=== PATIENT | male | born 1955 | race Caucasian/White ===

== ENCOUNTER 2016-10-09 10:05 | Inpatient (IN) | payer MEDICARE ==
[2016-10-09] MEDS ORDERED: THIAMINE 100 MG/ML 2 ML VIAL IM STA (10:47)
[2016-10-09] MEDS ORDERED: LORazepam 2 MG/ML SYRINGE IV PRN (10:47)
--- NOTE | 2016-10-09 10:50 | ED ---
General Adult HPI - General Chief complaint: Alcohol Stated complaint: ETOH Time Seen by Provider: 10/09/16 10:40 Source: EMS, RN notes reviewed Mode of arrival: EMS - History of Present Illness Initial comments: Patient is a 61-year-old male who presents emergency room today by EMS with chief complaint of alcohol intoxication and suicidal. Patient states that he has been drinking today. He admits that he had a fall earlier today. He admits that he did hit the left side of his head. Denies any loss conscious. Denies any headache. States he is alcoholic drinks daily. States she's had thoughts of hurting himself. His example of hanging himself. Patient denies any other physical complaints. Patient denies any recent fever, chills, shortness of breath, chest pain, back pain, abdominal pain, nausea or vomiting, numbness or tingling, dysuria or hematuria, constipation or diarrhea, headaches or visual changes, or any other complaints. - Related Data Home Medications Medication Instructions Recorded Confirmed Atomoxetine HCl [Strattera] 40 mg PO BID 03/24/14 07/20/16 Citalopram Hydrobromide [CeleXA] 40 mg PO HS 03/24/14 07/20/16 Multivitamin [Men's Multi-Vitamin] 1 each PO DAILY 03/24/14 07/20/16 Pregabalin [Lyrica] 100 mg PO TID 03/24/14 07/20/16 Ranitidine HCl [Zantac] 150 mg PO BID 03/24/14 07/20/16 clonazePAM [KlonoPIN] 1 mg PO TID 03/24/14 07/20/16 risperiDONE [RisperDAL] 1 mg PO BID 03/24/14 07/20/16 traZODone HCL [Desyrel] 100 mg PO HS 03/24/14 07/20/16 Previous Rx's Medication Instructions Recorded HYDROcodone/APAP 10-325MG [Hampton 2 each PO Q6H PRN #30 tab 04/29/15 10-325] Nicotine 21Mg/24Hr Patch [Habitrol] 1 patch TRANSDERM DAILY #14 patch 04/29/15 Sulfamethox-Tmp 800-160Mg [Bactrim 1 each PO Q12HR #20 tab 04/29/15 Ds] Trimethobenzamide [Tigan] 300 mg PO TID PRN #15 capsule 07/20/16 Allergies Allergy/AdvReac Type Severity Reaction Status Date / Time Penicillins Allergy Dyspnea, Verified 07/20/16 11:00 HIVES, THROAT SWELLING Review of Systems ROS Statement: Those systems with pertinent positive or pertinent negative responses have been documented in the HPI. ROS Other: All systems not noted in ROS Statement are negative. Past Medical History Past Medical History: GERD/Reflux, Hypertension, Pneumonia Additional Past Medical History / Comment(s): pvd, neuropathy depression , hx of non healing wounds both feet.PAST STOMACH ULCERS, psoriases, sinus problem History of Any Multi-Drug Resistant Organisms: MRSA Date of last positivie culture/infection: 04/25/15 MDRO Source:: Right Third Toe Past Surgical History: Hernia Repair Additional Past Surgical History / Comment(s): Transmetatarsal amputation of the fourth and fifth on the right, multiple I&D 2 nonhealing wounds on the foot , repair of perforated ucler of stomach Past Anesthesia/Blood Transfusion Reactions: Motion Sickness Past Psychological History: ADD/ADHD, Anxiety, Depression Additional Psychological History / Comment(s): Single. His sister is his primary contact. Is an ongoing tobacco smoker. STATES OCC HAS A DRINK-DENIES ANY RECREATIONAL/STREET DRUGS. He denies any medical marijuana, marijuana use. PT IS ON . DISABILTY, LIVES ALONE IN [facility]. There is no experience. There are no extensive travels. There is a cat in the home. Smoking Status: Current every day smoker Past Alcohol Use History: Occasional Additional Past Alcohol Use History / Comment(s): started smoking at age 26 smoke 1 ppd . smoking patch given to pt. Past Drug Use History: None Reported - Past Family History Mother Family Medical History: CVA/TIA, Diabetes Mellitus, Vascular Disorder Additional Family Medical History / Comment(s): emotional problems. age 64 of cva Father Family Medical History: Hypertension Additional Family Medical History / Comment(s): age 38 from mva General Exam - General Exam Comments Initial Comments: General: The patient is awake and alert, in no distress, and does not appear acutely ill. Obvious intoxication Eye: Pupils are equal, round and reactive to light, extra-ocular movements are intact. No nystagmus. There is normal conjunctiva bilaterally. No signs of icterus. Ears, nose, mouth and throat: There are moist mucous membranes and no oral lesions. Neck: The neck is supple, there is no tenderness or JVD. Cardiovascular: There is a regular rate and rhythm. No murmur, rub or gallop is appreciated. Respiratory: Lungs are clear to auscultation, respirations are non-labored, breath sounds are equal. No wheezes, stridor, rales, or rhonchi. Gastrointestinal: Soft, non-distended, non-tender abdomen without masses or organomegaly noted. There is no rebound or guarding present. No CVA tenderness. Bowel sounds are unremarkable. Musculoskeletal: Normal ROM, no tenderness. Strength 5/5. Sensation intact. Pulses equal bilaterally 2+. Neurological: A&O x 3. CN II-XII intact, There are no obvious motor or sensory deficits. Coordination appears grossly intact. Speech is normal. Skin: Mild bruising with mild swelling above left eye. Psychiatric: Cooperative, appropriate mood & affect, normal judgment. Course Vital Signs 10/09/16 10/09/16 10/09/16 10:13 12:07 13:15 Temperature 97.3 F L Pulse Rate 98 88 Respiratory 18 20 Rate Blood Pressure 174/107 181/95 206/102 O2 Sat by Pulse 95 98 Oximetry Medical Decision Making - Medical Decision Making Recent CT reviewed are unremarkable. Patient intoxicated on alcohol level 250. Patient having increased nausea vomiting here the emergency room. Will be admitted for alcohol draw. CIWA protocol will be followed. Case discussed with attending physician Dr. Butts discuss case with admitting physician, she also recommends addition to CIWA scale to give Valium 7.5 mg by mouth every 6 hours and hold for respirations less than 12. Also, Lopressor 50 mg every 8hr and hold for blood pressure less than 100/50 - Lab Data Lab Results 10/09/16 Range/Units 12:37 Urine Opiates Screen Detected H (NotDetected) Ur Oxycodone Screen Not Detected (NotDetected) Urine Methadone Screen Not Detected (NotDetected) Ur Propoxyphene Screen Not Detected (NotDetected) Ur Barbiturates Screen Not Detected (NotDetected) U Tricyclic Antidepress Not Detected (NotDetected) Ur Phencyclidine Scrn Not Detected (NotDetected) Ur Amphetamines Screen Not Detected (NotDetected) U Methamphetamines Scrn Not Detected (NotDetected) U Benzodiazepines Scrn Not Detected (NotDetected) Urine Cocaine Screen Not Detected (NotDetected) U Marijuana (THC) Screen Not Detected (NotDetected) Disposition Clinical Impression: Alcohol withdrawal Disposition: ADMITTED IP TO THIS HOSP Condition: Stable Referrals: Remington Mustafa MD [Primary Care Provider] - 1-2 days Time of Disposition: 13:35
--- NOTE | 2016-10-09 11:18 | CT ---
EXAMINATION TYPE: CT brain wo con DATE OF EXAM: 10/09/2016 11:05 AM COMPARISON: NONE HISTORY: fall CT DLP: 1081.6 mGycm Automated exposure control for dose reduction was used. FINDINGS: There is no acute intracranial hemorrhage, mass effect, or midline shift identified. The ventricles and sulci are within normal limits in size. Soft tissue swelling noted compatible with patient's hist ory of contusion at the left orbit soft tissues anteriorly. The globes are intact and the visualized sinuses are remarkable for lobular soft tissue in the maxillary sinuses likely mucus retention cysts or polyps. There is cortical atrophy, periventricular white matter shows low attenuation. IMPRESSION: No acute intracranial hemorrhage, mass effect, or midline shift is seen. Age-related changes of atrop hy and probable chronic small vessel ischemia. Soft tissue injury
[2016-10-09] MEDS ORDERED: ONDANSETRON 4 MG/2 ML VIAL IVP STA ×2 (11:48→13:22)
[2016-10-09] MEDS ORDERED: LORazepam 1 MG TAB PO STA (12:12)
[2016-10-09] MEDS: LORazepam 2 MG/ML SYRINGE IV PRN ×2 (13:29→20:47)
[2016-10-09] MEDS ORDERED: NALOXONE 0.4 MG/ML 1 ML VIAL IV PRN (13:35)
[2016-10-09] MEDS ORDERED: METOPROLOL TARTRATE 50 MG TAB PO STA (13:40)
[2016-10-09 13:42] LABS: ALT 54 U/L (21-72); AST 133 U/L (17-59); Alkaline Phosphatase 86 U/L (38-126); Anion Gap 21 mmol/L; Blood Urea Nitrogen 6 mg/dL (9-20); Calcium 8.7 mg/dL (8.4-10.2); Carbon Dioxide 23 mmol/L (22-30); Chloride 102 mmol/L (98-107); Glucose 130 mg/dL (74-99); Non-African American GFR(MDRD) >60 (>60 ml/min/1.73 sqM); Potassium 4.1 mmol/L (3.5-5.1); Sodium 146 mmol/L (137-145); Total Protein 8.3 g/dL (6.3-8.2)
[2016-10-09 13:47] LABS: Basophils % (A) 0 %; CH 41.4; CHCM 36.1; Eosinophils % (A) 0 %; HCT 46.2 % (39.0-53.0); HGB 15.8 gm/dL (13.0-17.5); Luc # (Auto) 0.04; Luc % (Auto) 1; Lymphocytes # (A) 0.8 k/uL (1.0-4.8); Lymphocytes % (A) 13 %; MCH 39.3 pg (25.0-35.0); MCHC 34.3 g/dL (31.0-37.0); MCV 114.9 fL (80.0-100.0); Macrocytosis Marked; Mean Platelet Volume 7.8; Monocytes # (A) 0.3 k/uL (0-1.0); Monocytes % (A) 5 %; Neutrophils # (A) 4.8 k/uL (1.3-7.7); Neutrophils % (A) 81 %; RBC 4.02 m/uL (4.30-5.90); RDW 13.4 % (11.5-15.5); WBC (Perox) 6.21
[2016-10-09] MEDS: DIAZEPAM 5 MG TAB PO SCH ×2 (14:30→21:08)
[2016-10-09] MEDS ORDERED: LABETALOL SYRINGE 5 MG/ML IVP STA ×2 (14:42→16:15)
[2016-10-09] MEDS ORDERED: LORazepam 2 MG/ML SYRINGE IV STA ×3 (14:42→17:16)
[2016-10-09] MEDS ORDERED: cloNIDine HCL 0.2 MG TAB PO STA (17:16)
[2016-10-09] MEDS: METOPROLOL TARTRATE 50 MG TAB PO SCH ×2 (17:20→21:08)
[2016-10-09] MEDS ORDERED: cloNIDine HCL 0.2 MG TAB PO PRN (19:33)
[2016-10-09] MEDS: THIAMINE 100 MG TAB PO SCH (19:48)
[2016-10-09] MEDS: HYDROcodone/APAP 10-325MG 1 EACH TAB PO PRN (22:18)
[2016-10-09] MEDS: clonazePAM 1 MG TAB PO SCH (22:18)
[2016-10-09] MEDS: traZODone HCL 100 MG TAB PO SCH (22:18)
[2016-10-09] MEDS: PREGABALIN 100 MG CAP PO SCH (22:18)
[2016-10-09] MEDS: CITALOPRAM HYDROBROMIDE 20 MG TAB PO SCH (22:18)
[2016-10-09] MEDS: risperiDONE 2 MG TAB PO SCH (22:19)
[2016-10-10] MEDS: DIAZEPAM 5 MG TAB PO SCH ×4 (01:54→21:02)
[2016-10-10] MEDS: LORazepam 2 MG/ML SYRINGE IV PRN ×2 (01:54→21:03)
[2016-10-10] MEDS: HYDROcodone/APAP 10-325MG 1 EACH TAB PO PRN ×3 (06:09→21:02)
[2016-10-10] MEDS: FAMOTIDINE 20 MG TAB PO SCH ×2 (08:56→21:07)
[2016-10-10] MEDS: METOPROLOL TARTRATE 50 MG TAB PO SCH ×3 (08:57→23:14)
[2016-10-10] MEDS: THIAMINE 100 MG TAB PO SCH ×2 (08:57→16:37)
[2016-10-10] MEDS: clonazePAM 1 MG TAB PO SCH ×3 (08:57→23:18)
[2016-10-10] MEDS: PREGABALIN 100 MG CAP PO SCH ×3 (08:57→23:14)
[2016-10-10] MEDS: risperiDONE 1 MG TAB PO SCH (08:57)
[2016-10-10 12:56] VITALS: BMI 29.4
[2016-10-10] MEDS: ENOXAPARIN 40 MG/0.4 ML SYRINGE SQ SCH (13:59)
--- NOTE | 2016-10-10 14:11 | HP ---
DATE OF ADMISSION: 10/09/2016 PRESENTING COMPLAINT: Alcohol intoxicated. HISTORY OF PRESENTING COMPLAINT: This is a 61-year-old patient whose chronic stable medical conditions include GERD, hyperlipidemia, hypertension, peripheral arterial disease, peripheral neuropathy, stomach ulcer in the past. The patient is smoking and continued to drink about a fifth of vodka. Patient had been clean for some time, but started drinking back about 9 months ago. Patient also was depressed, suicidal when he presented. Patient's friend is present here. Patient does live at [facility]. Patient also withdrawing from alcohol, was put on Valium and beta steven. The patient also stated he bumped and fell hitting the left forehead. The patient is somewhat tired appearing, of course he has been getting Valium. REVIEW OF SYSTEMS: CONSTITUTIONAL: Tired. HEENT: Bumped the left side of the forehead. RESPIRATORY: Occasional wheezing. CARDIOVASCULAR: None. GASTROINTESTINAL: Occasional diarrhea. GENITOURINARY: None. MUSCULOSKELETAL: Some bruising of the left forehead area. HEMATOLOGICAL: None. LYMPHATICS: None. PSYCHIATRY: Depressed, suicidal on presentation. NEUROLOGICAL: Suicidal when he presented. Past medical history of GERD, hyperlipidemia, hypertension, psoriasis, stomach ulcers, MRSA of the right toes. PAST SURGICAL HISTORY: Hernia repair, transmetatarsal amputation of the fourth and fifth toe on the right, multiple I&D on nonhealing wounds of the foot, repair of perforated ulcer of the stomach. Psych history of ADHD, anxiety, depression. SOCIAL HISTORY: The patient's sister is primary contact. Alcoholic as above. Patient is on disability, lives alone in an apartment. Patient has been smoking a pack a day for over the last 20 years and drinking a fifth a vodka at least for the last 9 months. Family history of stroke, diabetes, vascular disorder. HOME MEDICATIONS: 1. Desyrel 100 mg q.h.s. 2. Risperdal 2 mg q.h.s. 3. Risperdal 1 mg in the morning. 4. Klonopin 1 mg t.i.d. 5. Zantac 150 mg p.o. b.i.d. 6. Lyrica 100 mg p.o. t.i.d. 7. Purlear 1 to 2 tablets q.6 p.r.n. 8. Celexa 40 mg q.h.s. ASSESSMENT: 1. Major depression, recurrent, with no psychosis with suicidal ideation, present at admission. 2. Acute alcohol intoxication presentation. 3. Chronic alcoholism, dependence. 4. Early alcohol withdrawal. 5. Alcohol withdrawal syndrome. 6. Gastroesophageal reflux disease. 7. Hyperlipidemia. 8. Essential hypertension. 9. Peripheral arterial disease. 10. Peripheral neuropathy, probably from alcoholism. PLAN: Patient will be put on Lovenox. Home medications are resumed. Psychiatry was consulted. Patient has got a sitter at the bedside. I have him on Valium and Lopressor for the alcohol withdrawal. Will keep a close eye. Will follow.
[2016-10-10] MEDS: ONDANSETRON 4 MG/2 ML VIAL IVP PRN (16:37)
--- NOTE | 2016-10-10 18:20 | CONS ---
DATE OF CONSULTATION: REASON FOR CONSULTATION: To assess suicidal risk. I reviewed the medical record and attempted to interview the patient. Patient has extensive history of alcohol abuse and mental illness. According to the record from the emergency room, patient presents to the emergency room by EMS with chief complaint of alcohol intoxication, as his blood alcohol level was 250 and he was verbalizing suicidal ideation. Patient states that he has been drinking on a daily basis up to a fifth of hard liquor a day and he had a fall in his apartment and he did hit the left side of his head. He denied any loss of consciousness or headache. CT of the brain was negative for intracranial hemorrhage. Patient told the ER physician that he was thinking about hurting himself, and he gave an example of hanging himself. Today when I saw the patient he was still drowsy, having severe hand tremors; however, he said, "I'm not suicidal. I just get very depressed when I don't know how to stop drinking." Patient stated that he has been on Social Security Disability "for dual diagnosis. I have drinking problem and schizoaffective disorder." PAST PSYCHIATRIC HISTORY: He denied any inpatient treatment for mental illness; however, he stated that he has been in 5 or 6 different inpatient substance abuse programs. Patient stated that he was treated at [facility] in [facility], but according to him, "they did terminate my care last year because I was drinking every day." According to the patient, his primary care physician has continued his psychotropic medication. PAST DIAGNOSES: He said he was diagnosed with attention deficit and hyperactivity, anxiety, depression, bipolar and schizoaffective disorder. SUBSTANCE ABUSE HISTORY: He started drinking alcohol at age 16, and despite being in 4 or 5 different inpatient rehab programs, the longest period of sobriety was 2 years; this was 5 years ago. Patient does not go to any AA meetings or any recovery group. Smoking: He has been smoking at least one pack a day for more than 40 years. ALLERGIES: PENICILLIN. His home medication includes: 1. Strattera 40 mg twice a day. 2. Citalopram 40 mg at bedtime. 3. Lyrica 100 mg 3 times a day. 4. Zantac 150 twice a day. 5. Klonopin 1 mg 3 times a day. 6. Risperdal 1 mg twice a day. 7. Trazodone 100 mg at bedtime. PAST MEDICAL HISTORY: 1. History of hypertension. 2. Gastroesophageal reflex disease. 3. Neuropathy. 4. Psoriasis. 5. Peripheral vascular disease. PAST SURGICAL HISTORY: 1. Amputation of the fourth and the fifth toes on the right foot. 2. He has had multiple non-healing wounds in the past on the foot. BRIEF SOCIAL HISTORY: Patient has 4 brothers and 1 sister. He never . He does not have any children. He is on Social Security Disability and lives alone in the apartment. He has a cat at home in his apartment. He stated that both parents were alcoholic. MENTAL STATUS EXAMINATION: Despite patient being alert and responsive, he was unable to provide complete answers for the mini mental status exam or memory and concentration test. He did admit that he has a drinking problem and usually experiences auditory and visual hallucinations during withdrawal. But he denied any current suicidal or homicidal ideation. He stated that he never had any history of suicide in the past. Even when I was talking to him, he started asking me to fill in the menu for his lunch. He is oriented to person and place, as he was able to identify the name of the hospital. He is very disheveled, unkempt, with body odor. His thinking is very concrete. His insight regarding his drinking is questionable, but in general his insight and judgment are fair. ASSESSMENT: 1. Alcohol abuse disorder and dependence and alcohol withdrawal. 2. History of schizoaffective disorder versus bipolar disorder. PLAN: From a psychiatric perspective, patient denied any suicidal or homicidal ideation. Patient does not need to be hospitalized in a psychiatric facility; however, he does need [facility]. Will continue to follow up as long as the patient is in the hospital. Thank you for this consultation.
[2016-10-10] MEDS: traZODone HCL 100 MG TAB PO SCH (21:07)
[2016-10-10] MEDS: CITALOPRAM HYDROBROMIDE 20 MG TAB PO SCH (21:07)
[2016-10-10] MEDS: risperiDONE 2 MG TAB PO SCH (21:07)
[2016-10-11] MEDS: HYDROcodone/APAP 10-325MG 1 EACH TAB PO PRN (03:46)
[2016-10-11] MEDS: DIAZEPAM 5 MG TAB PO SCH ×3 (03:46→11:54)
[2016-10-11] MEDS: LORazepam 2 MG/ML SYRINGE IV PRN ×2 (06:57→16:42)
[2016-10-11] MEDS: PREGABALIN 100 MG CAP PO SCH ×2 (08:43→15:23)
[2016-10-11] MEDS: METOPROLOL TARTRATE 50 MG TAB PO SCH ×2 (08:43→15:23)
[2016-10-11] MEDS: ENOXAPARIN 40 MG/0.4 ML SYRINGE SQ SCH (08:43)
[2016-10-11] MEDS: FAMOTIDINE 20 MG TAB PO SCH (08:44)
[2016-10-11] MEDS: risperiDONE 1 MG TAB PO SCH (08:44)
[2016-10-11] MEDS: clonazePAM 1 MG TAB PO SCH ×2 (08:44→15:23)
[2016-10-11] MEDS: THIAMINE 100 MG TAB PO SCH ×2 (11:53→15:23)
[2016-10-11] MEDS ORDERED: DIAZEPAM 5 MG TAB PO SCH (22:00)
--- NOTE | 2016-10-11 22:55 | HP ---
ADDENDUM: DATE OF ADMISSION: 10/09/2016 PHYSICAL EXAMINATION: Temperature 97.6, pulse 56, respirations 20, blood pressure 152/97, pulse ox 99% on room air. GENERAL APPEARANCE: Lying in bed, rather disheveled, tired -appearing. EYES: Pupils equal. Conjunctivae normal. NECK: JVD unable to assess. Mass not palpable. RESPIRATORY: Effort normal. LUNGS: Diminished breath sounds. CARDIOVASCULAR: First and second sounds normal. No edema. ABDOMEN: Soft, nontender. Liver and spleen not palpable. PSYCHIATRY: Anxious, tired-appearing. NEUROLOGICAL: Slightly shaky. EXTREMITIES: Missing last 2 toes of the right foot. DERMATOLOGICAL: Dry skin.
[2016-10-11 23:50] VITALS: RESP 18
[2016-10-12] MEDS: LORazepam 2 MG/ML SYRINGE IV PRN (03:15)
[2016-10-12] MEDS: HYDROcodone/APAP 10-325MG 1 EACH TAB PO PRN (03:16)
[2016-10-12] MEDS: FAMOTIDINE 20 MG TAB PO SCH ×3 (03:17→08:11)
[2016-10-12] MEDS: CITALOPRAM HYDROBROMIDE 20 MG TAB PO SCH (03:17)
[2016-10-12] MEDS: traZODone HCL 100 MG TAB PO SCH (03:18)
[2016-10-12] MEDS: risperiDONE 2 MG TAB PO SCH (03:18)
[2016-10-12] MEDS: ONDANSETRON 4 MG/2 ML VIAL IVP PRN (03:22)
[2016-10-12] MEDS: METOPROLOL TARTRATE 50 MG TAB PO SCH ×2 (03:23→08:05)
[2016-10-12] MEDS: PREGABALIN 100 MG CAP PO SCH ×3 (03:24→08:10)
[2016-10-12] MEDS: clonazePAM 1 MG TAB PO SCH ×2 (03:31→08:06)
[2016-10-12] MEDS: risperiDONE 1 MG TAB PO SCH (08:05)
[2016-10-12] MEDS: ENOXAPARIN 40 MG/0.4 ML SYRINGE SQ SCH (08:05)
[2016-10-12 08:12] VITALS: TEMP 97.4
--- NOTE | 2016-10-12 09:13 | PN ---
DATE OF SERVICE: 10/11/2016 PRESENTING COMPLAINT: Alcohol intoxication and withdrawals. INTERVAL HISTORY: This patient was seen by me earlier today with alcohol ( ) intoxication. ( ) earlier today. Patient's friend is at the bedside and also has a sitter. Seen by psychiatry Dr. Arias, not felt a candidate for inpatient psych. The patient did tolerate ( ) now sleepy. Review of systems could not be done as the patient is rather sleepy. Current medications are reviewed including Valium 7.5 q6h. On examination, temperature 97.8, pulse 55, respirations 16, blood pressure 142/90, pulse ox 98% on room air. GENERAL APPEARANCE: Lying in bed, somber, arousable. EYES: Pupils equal, conjunctivae normal. NECK: JVD not raised. Mass not palpable. RESPIRATORY:
--- NOTE | 2016-10-12 09:24 | PN ---
DATE OF SERVICE: 10/11/2016 Presenting complaint: Tired. INTERVAL HISTORY: This patient admitted with acute alcohol intoxication, alcohol withdrawals, seen by Dr. Arias from psychiatry, does not feel a candidate to be admitted to inpatient psych. Patient's friend is at bedside. Also has a sitter. The patient did eat breakfast today and then dozed off again. Review of systems could not be done as the patient is rather sleepy. Medications include Valium. On examination temperature 97.8, pulse 55, respiratory rate 16, blood pressure 142/90. Pulse ox 98% on room air. General appearance: tired appearing, arousable. EYES: Pupils equal. Conjunctivae not raised. Mass not palpable. RESPIRATORY: Effort normal. Lungs slightly decreased breath sounds. CARDIOVASCULAR: First and second sounds normal. No edema. ABDOMEN: Soft, nontender. Liver and spleen not palpable. PSYCHIATRY: Lethargic but arousable. INVESTIGATIONS: No blood work from today. AST 133. ASSESSMENT: 1. Acute alcohol intoxication on presentation. 2. Chronic alcohol dependence. 3. Early alcohol withdrawal, improving. 4. Metabolic encephalopathy probably from valium. 5. Alcohol withdrawal syndrome, improving. 6. Gastroesophageal reflux disease. 7. Hyperlipidemia. 8. Essential hypertension. 9. Peripheral artery disease. 10. Peripheral neuropathy, probably from alcoholism. 11. Possible bipolar disorder as per psychiatry. PLAN: At this point, we will stop patient's Valium. Continue current medication and treatment plan. As patient is not a suicide risk, sitter can be discontinued once the patient is out of the effect of Valium.
[2016-10-12] MEDS: THIAMINE 100 MG TAB PO SCH (11:09)
[2016-10-12 11:17] VITALS: BP 116/67; PULSE 65
--- NOTE | 2016-10-13 19:26 | DS ---
DATE OF ADMISSION: 10/09/2016 DATE OF DISCHARGE: 10/12/2016 FINAL DIAGNOSES: 1. Acute alcohol intoxication on presentation. 2. Chronic alcohol dependence. 3. Early alcohol withdrawal, present on admission. 4. Metabolic encephalopathy, multifactorial. 5. Alcohol withdrawal syndrome on presentation. 6. Gastroesophageal reflux disease. 7. Hyperlipidemia. 8. Essential hypertension. 9. Peripheral artery disease. 10. Peripheral neuropathy, probably from alcoholism. 11. Possible bipolar disorder as per psychiatry. HOSPITAL COURSE: This patient has been drinking quite a bit for quite some time, presented with intoxification, and had alcohol withdrawal. Initially there was some statement about suicidal. Seen by Dr. Rincon from psychiatry who cleared the patient. The patient to remain on current medication and withdrawals have improved. On the day of discharge, patient up and about in the hallway, unassisted answering questions appropriately. Was tired. The patient again counseled the patient against smoking and alcohol. On examination: LUNGS: Decreased breath sounds. CARDIOVASCULAR: First and seconds normal. PSYCH: Alert and oriented times three. DISCHARGE MEDICATIONS: 1. Celexa 40 mg p.o. q.h.s. 2. Lytic 100 mg p.o. t.i.d. 3. Zantac 150 mg p.o. b.i.d. 4. Klonopin 1 mg p.o. t.i.d., 5. Risperdal 1 mg p.o. daily. 6. Desyrel 100 mg p.o. q.h.s. 7. Manter 10, 1 to 2 tablets q.6 p.r.n. 8. Risperdal 2 mg p.o. q.h.s. 9. Lopressor 50 mg p.o. t.i.d. Follow up with Dr. Mustafa in 2 days. Follow up with [facility] in one week. Also the patient is to follow up with Dr. Corral in 10 days regarding alcoholic hepatitis.
== END 2016-10-12 14:47 | disposition home or self-care (01) | DRG 896 ==
LOC: EC 10:05 → 4MS4W 13:44 → 6SEL 19:43
PROVIDERS: ADMIT Hospitalist; ATTEND Hospitalist
DX: F10.239 Alcohol dependence with withdrawal, unspecified (principal); G93.41 Metabolic encephalopathy; R45.851 Suicidal ideations; G62.9 Polyneuropathy, unspecified; F10.229 Alcohol dependence with intoxication, unspecified; F25.9 Schizoaffective disorder, unspecified; E78.5 Hyperlipidemia, unspecified; F17.210 Nicotine dependence, cigarettes, uncomplicated; F41.9 Anxiety disorder, unspecified; F90.9 Attention-deficit hyperactivity disorder, unspecified type; I10 Essential (primary) hypertension; I73.9 Peripheral vascular disease, unspecified; K21.9 Gastro-esophageal reflux disease without esophagitis; F31.9 Bipolar disorder, unspecified; L40.9 Psoriasis, unspecified; T42.4X5A Adverse effect of benzodiazepines, initial encounter; Z79.82 Long term (current) use of aspirin; Z88.0 Allergy status to penicillin; Z86.14 Personal history of Methicillin resistant Staphylococcus aureus infection; Z82.49 Family history of ischemic heart disease and other diseases of the circulatory system; W19.XXXA Unspecified fall, initial encounter; Y90.8 Blood alcohol level of 240 mg/100 ml or more; Y92.239 Unspecified place in hospital as the place of occurrence of the external cause
CPT/HCPCS: 36415; 70450; 80053; 80306; 82075; 85025; 96372; 96374; 96375; 96376; 99285

== ENCOUNTER 2017-03-26 12:47 | Observation (INO) | payer MEDICARE ==
[2017-03-26] MEDS ORDERED: ONDANSETRON 4 MG/2 ML VIAL IVP STA (13:47)
[2017-03-26] MEDS ORDERED: HYDROmorphone 1 MG/ML 1 ML SYRINGE IVP STA (13:47)
[2017-03-26] MEDS ORDERED: SODIUM CHLORIDE 0.9% 1,000 ML IV STA (13:47)
--- NOTE | 2017-03-26 13:50 | ED ---
General Adult HPI - General Source: patient, RN notes reviewed Mode of arrival: ambulatory Limitations: no limitations <Guillermo Davies - Last Filed: 03/26/17 15:43> <Charles Sosa - Last Filed: 03/26/17 16:20> - General Chief complaint: Skin/Abscess/Foreign Body Stated complaint: abrasion left great toe Time Seen by Provider: 03/26/17 13:39 - History of Present Illness Initial comments: Patient 61-year-old male who presents emergency room today with chief complaint of an infection to the left great toe. He does admit to a history of MRSA. He states this started about 4 weeks ago. He states he has no excuse his for reason why he did not follow up sooner. Patient does admit to a history of MRSA and surgery to the right foot and amputation of 3 toes. Patient does admit that the area is painful. He denies any other complaints or symptoms. ( Guillermo Davies) - Related Data Home Medications Medication Instructions Recorded Confirmed Citalopram Hydrobromide [CeleXA] 40 mg PO HS 03/24/14 03/26/17 Ranitidine HCl [Zantac] 150 mg PO BID 03/24/14 03/26/17 clonazePAM [KlonoPIN] 1 mg PO TID 03/24/14 03/26/17 traZODone HCL [Desyrel] 100 mg PO HS 03/24/14 03/26/17 HYDROcodone/APAP 10-325MG [[place] 1 - 2 tab PO Q6H PRN 10/09/16 03/26/17 10-325] Gabapentin [Neurontin] 100 mg PO TID 03/26/17 03/26/17 Tamsulosin HCl [Flomax] 0.4 mg PO HS 03/26/17 03/26/17 Previous Rx's Medication Instructions Recorded Metoprolol Tartrate [Lopressor] 50 mg PO TID #90 tab 10/12/16 Allergies Allergy/AdvReac Type Severity Reaction Status Date / Time Penicillins Allergy Dyspnea, Verified 03/26/17 14:06 HIVES, THROAT SWELLING Review of Systems ROS Other: All systems not noted in ROS Statement are negative. <Guillermo Davies - Last Filed: 03/26/17 15:43> ROS Other: All systems not noted in ROS Statement are negative. <Charles Sosa - Last Filed: 03/26/17 16:20> ROS Statement: Those systems with pertinent positive or pertinent negative responses have been documented in the HPI. Past Medical History Past Medical History: GERD/Reflux, Hyperlipidemia, Hypertension, Pneumonia, Skin Disorder, Vascular Disorder Additional Past Medical History / Comment(s): pvd, bilateral legs and feet neuropathy, hx of non healing wounds both feet, 2007 osteomylitis L foot, PAST STOMACH ULCERS, psoriases, sinus problem History of Any Multi-Drug Resistant Organisms: MRSA Date of last positivie culture/infection: 04/25/15 MDRO Source:: Right Third Toe Past Surgical History: Hernia Repair Additional Past Surgical History / Comment(s): Transmetatarsal amputation of the fourth and fifth on the right, multiple I&D 2 nonhealing wounds on the foot , repair of perforated ucler of stomach, EGD/colonoscopy, PICC lines in and out. Past Anesthesia/Blood Transfusion Reactions: Motion Sickness Past Psychological History: ADD/ADHD, Anxiety, Depression Smoking Status: Current every day smoker - Past Family History Mother Family Medical History: CVA/TIA, Diabetes Mellitus, Vascular Disorder Additional Family Medical History / Comment(s): emotional problems. age 64 of cva Father Family Medical History: Hypertension Additional Family Medical History / Comment(s): age 38 from mva <Guillermo Davies - Last Filed: 03/26/17 15:43> General Exam Limitations: no limitations <Guillermo Davies - Last Filed: 03/26/17 15:43> <Charles Sosa - Last Filed: 03/26/17 16:20> - General Exam Comments Initial Comments: General: The patient is awake and alert, in no distress, and does not appear acutely ill. Eye: Pupils are equal, round and reactive to light, extra-ocular movements are intact. No nystagmus. There is normal conjunctiva bilaterally. No signs of icterus. Ears, nose, mouth and throat: There are moist mucous membranes and no oral lesions. Neck: The neck is supple, there is no tenderness or JVD. Cardiovascular: There is a regular rate and rhythm. No murmur, rub or gallop is appreciated. Respiratory: Lungs are clear to auscultation, respirations are non-labored, breath sounds are equal. No wheezes, stridor, rales, or rhonchi. Musculoskeletal: Normal ROM, no tenderness. Strength 5/5. Sensation intact. Pulses equal bilaterally 2+. Neurological: A&O x 3. CN II-XII intact, There are no obvious motor or sensory deficits. Coordination appears grossly intact. Speech is normal. Skin: Patient does have ulceration to the bottom of the left great toe. There is increased redness erythema and inflammation and swelling to this area. Psychiatric: Cooperative, appropriate mood & affect, normal judgment. (Guillermo Davies) Medical Decision Making - Lab Data Result diagrams: 03/26/17 14:15 03/26/17 14:15 <Guillermo Davies - Last Filed: 03/26/17 15:43> - Lab Data Result diagrams: 03/26/17 14:15 03/26/17 14:15 <Charles Sosa - Last Filed: 03/26/17 16:20> - Medical Decision Making Patient's x-ray reviewed shows no evidence of osteomyelitis. Patient's last been reviewed here in the emergency room. Patient's sed rate 40. Patient's remaining labs been reviewed and compared to previous shows similar. Consent on antibiotics in the emergency room.. (Guillermo Davies) The patient was seen and examined. All diagnostics were reviewed. It is felt as though he would require admission to the hospital. He likely has a necrotic right large toe and may need amputation. The case is discussed with internal medicine and he is admitted with the vascular surgery consult. The case is discussed with the PA and I agree with the findings as documented. (Charles Sosa) - Lab Data Lab Results 03/26/17 03/26/17 Range/Units 14:15 14:15 WBC 3.5 L (3.8-10.6) k/uL RBC 3.23 L (4.30-5.90) m/uL Hgb 12.2 L (13.0-17.5) gm/dL Hct 33.9 L (39.0-53.0) % MCV 105.1 H (80.0-100.0) fL MCH 37.8 H (25.0-35.0) pg MCHC 36.0 (31.0-37.0) g/dL RDW 16.7 H (11.5-15.5) % Plt Count 63 L (150-450) k/uL Neutrophils % 57 % Lymphocytes % 27 % Monocytes % 10 % Eosinophils % 2 % Basophils % 1 % Neutrophils # 2.0 (1.3-7.7) k/uL Lymphocytes # 1.0 (1.0-4.8) k/uL Monocytes # 0.4 (0-1.0) k/uL Eosinophils # 0.1 (0-0.7) k/uL Basophils # 0.0 (0-0.2) k/uL Manual Slide Review Performed Poikilocytosis (manual Present Anisocytosis Slight Macrocytosis Moderate ESR 40 H (0-15) mm/hr Sodium 136 L (137-145) mmol/L Potassium 3.8 (3.5-5.1) mmol/L Chloride 97 L (98-107) mmol/L Carbon Dioxide 31 H (22-30) mmol/L Anion Gap 8 mmol/L BUN 8 L (9-20) mg/dL Creatinine 1.12 (0.66-1.25) mg/dL Est GFR (MDRD) Af Amer >60 (>60 ml/min/1.73 sqM) Est GFR (MDRD) Non-Af >60 (>60 ml/min/1.73 sqM) Glucose 98 (74-99) mg/dL Calcium 8.6 (8.4-10.2) mg/dL Total Bilirubin 1.7 H (0.2-1.3) mg/dL AST 47 (17-59) U/L ALT 32 (21-72) U/L Alkaline Phosphatase 117 (38-126) U/L Total Protein 7.4 (6.3-8.2) g/dL Albumin 3.7 (3.5-5.0) g/dL Disposition Time of Disposition: 15:30 <Guillermo Davies - Last Filed: 03/26/17 15:43> <Charles Sosa - Last Filed: 03/26/17 16:20> Clinical Impression: Foot ulcer, Cellulitis, Necrosis of toe Disposition: ADMITTED IP TO THIS [facility] Condition: Stable Referrals: Remington Mustafa MD [Primary Care Provider] - 1-2 days
[2017-03-26] MEDS ORDERED: IV VANCOMYCIN PER PHARMACY 1 EACH MISC MISCELLANE PRN (13:53)
[2017-03-26] MEDS ORDERED: LEVOFLOXACIN 750MG-D5W PMX 750 MG in DEXTROSE/WATER 1 150ML.BAG IVPB STA (13:53)
[2017-03-26] MEDS ORDERED: VANCOMYCIN 1,000 MG in SODIUM CHLORIDE 0.9% 250 ML IVPB STA (13:53)
[2017-03-26] MEDS ORDERED: VANCOMYCIN 2,000 MG in SODIUM CHLORIDE 0.9% 500 ML IVPB ONE (14:00)
[2017-03-26 14:29] LABS: Anisocytosis Slight; Basophils % (A) 1 %; CH 37.8; Eosinophils # (A) 0.1 k/uL (0-0.7); Eosinophils % (A) 2 %; HCT 33.9 % (39.0-53.0); HDW 3.02; HGB 12.2 gm/dL (13.0-17.5); Luc % (Auto) 3; Lymphocytes % (A) 27 %; MCH 37.8 pg (25.0-35.0); MCV 105.1 fL (80.0-100.0); Macrocytosis Moderate; Mean Platelet Volume 8.5; Monocytes # (A) 0.4 k/uL (0-1.0); Monocytes % (A) 10 %; Neutrophils % (A) 57 %; RBC 3.23 m/uL (4.30-5.90); RDW 16.7 % (11.5-15.5); WBC 3.5 k/uL (3.8-10.6); WBC (Perox) 3.92
[2017-03-26 14:33] LABS: ALT 32 U/L (21-72); AST 47 U/L (17-59); Alkaline Phosphatase 117 U/L (38-126); Anion Gap 8 mmol/L; Blood Urea Nitrogen 8 mg/dL (9-20); Calcium 8.6 mg/dL (8.4-10.2); Carbon Dioxide 31 mmol/L (22-30); Chloride 97 mmol/L (98-107); Glucose 98 mg/dL (74-99); Non-African American GFR(MDRD) >60 (>60 ml/min/1.73 sqM); Potassium 3.8 mmol/L (3.5-5.1); Sodium 136 mmol/L (137-145); Total Bilirubin 1.7 mg/dL (0.2-1.3); Total Protein 7.4 g/dL (6.3-8.2)
[2017-03-26 14:46] LABS: Manual Review Performed
--- NOTE | 2017-03-26 14:50 | XR ---
EXAMINATION TYPE: XR foot complete LT DATE OF EXAM: 03/26/2017 CLINICAL HISTORY: pain TECHNIQUE: Frontal, lateral and oblique images of the left foot are obtained. COMPARISON: 03/25/2013 FINDINGS: There is no acute fracture/dislocation evident. Again noted is partial amputation of the f ifth metatarsal. Mild degenerative narrowing involving various PIP and DIP joints. The overlying soft tissue appears unremarkable. Small plantar and dorsal calcaneal spurs. IMPRESSION: There is no acute fracture or dislocation. ICD 10 NO FRACTURE, INITIAL EVALUATION
[2017-03-26 15:17] LABS: Erythrocyte Sedimentation Rate 40 mm/hr (0-15)
[2017-03-26] MEDS ORDERED: ONDANSETRON 4 MG/2 ML VIAL IVP PRN (15:38)
[2017-03-26] MEDS ORDERED: NALOXONE 0.4 MG/ML 1 ML VIAL IV PRN (15:38)
[2017-03-26] MEDS ORDERED: ACETAMINOPHEN TAB 325 MG TAB PO PRN (15:38)
[2017-03-26] MEDS: HYDROmorphone 1 MG/ML 1 ML SYRINGE IV PRN ×3 (16:07→23:57)
--- NOTE | 2017-03-26 17:16 | P.HPIM ---
History of Present Illness H&P Date: 03/26/17 Chief Complaint: Left great toe wound pain Mr. Dale is a 61-year-old male with a known history of bilateral nonhealing wounds on both feet, peripheral vascular disease and surgery assess including multiple other medical problems presents emergency room today with chief complaint of an infection to the left great toe. He does admit to a history of MRSA. He states this started about 4 weeks ago. He states he has no excuse his for reason why he did not follow up sooner. Patient does admit to a history of MRSA and surgery to the right foot and amputation of 3 toes. Patient does admit that the area is painful. He denies any other complaints or symptoms. She denied any, soft fever or chills. No recent trauma. Denied any chest pain or short of breath. No nausea vomiting abdominal pain. Past Medical History Past Medical History: GERD/Reflux, Hyperlipidemia, Hypertension, Pneumonia, Skin Disorder, Vascular Disorder Additional Past Medical History / Comment(s): pvd, bilateral legs and feet neuropathy, hx of non healing wounds both feet, 2007 osteomylitis L foot, PAST STOMACH ULCERS, psoriases, sinus problem History of Any Multi-Drug Resistant Organisms: MRSA Date of last positivie culture/infection: 04/25/15 MDRO Source:: Right Third Toe Past Surgical History: Hernia Repair Additional Past Surgical History / Comment(s): Transmetatarsal amputation of the fourth and fifth on the right, multiple I&D 2 nonhealing wounds on the foot , repair of perforated ucler of stomach, EGD/colonoscopy, PICC lines in and out. Past Anesthesia/Blood Transfusion Reactions: Motion Sickness Past Psychological History: ADD/ADHD, Anxiety, Depression Smoking Status: Current every day smoker - Past Family History Mother Family Medical History: CVA/TIA, Diabetes Mellitus, Vascular Disorder Additional Family Medical History / Comment(s): emotional problems. age 64 of cva Father Family Medical History: Hypertension Additional Family Medical History / Comment(s): age 38 from mva Medications and Allergies Home Medications Medication Instructions Recorded Confirmed Type Citalopram Hydrobromide [CeleXA] 40 mg PO HS 03/24/14 03/26/17 History Ranitidine HCl [Zantac] 150 mg PO BID 03/24/14 03/26/17 History clonazePAM [KlonoPIN] 1 mg PO TID 03/24/14 03/26/17 History traZODone HCL [Desyrel] 100 mg PO HS 03/24/14 03/26/17 History HYDROcodone/APAP 10-325MG [[place] 1 - 2 tab PO Q6H PRN 10/09/16 03/26/17 History 10-325] Gabapentin [Neurontin] 100 mg PO TID 03/26/17 03/26/17 History Tamsulosin HCl [Flomax] 0.4 mg PO HS 03/26/17 03/26/17 History Allergies Allergy/AdvReac Type Severity Reaction Status Date / Time Penicillins Allergy Dyspnea, Verified 03/26/17 14:06 HIVES, THROAT SWELLING Physical Exam Vitals: Vital Signs Temp Pulse Resp BP Pulse Ox 03/26/17 16:37 97.6 F 65 18 160/72 95 03/26/17 15:49 97.6 F 64 18 116/64 97 03/26/17 15:21 54 L 18 125/75 99 03/26/17 14:31 68 18 131/76 99 03/26/17 12:58 98.2 F 110 H 18 124/93 98 Intake and Output 03/26/17 03/26/17 03/26/17 06:59 14:59 22:59 Other: Weight 99.79 kg Patient Weight 03/27/17 06:59 Weight 99.79 kg General: The patient is awake and alert, in no distress, and does not appear acutely ill. Eye: Pupils are equal, round and reactive to light, extra-ocular movements are intact. No nystagmus. There is normal conjunctiva bilaterally. No signs of icterus. Ears, nose, mouth and throat: There are moist mucous membranes and no oral lesions. Neck: The neck is supple, there is no tenderness or JVD. Cardiovascular: There is a regular rate and rhythm. No murmur, rub or gallop is appreciated. Respiratory: Lungs are clear to auscultation, respirations are non-labored, breath sounds are equal. No wheezes, stridor, rales, or rhonchi. Musculoskeletal: Normal ROM, no tenderness. Strength 5/5. Sensation intact. Pulses equal bilaterally 2+. Neurological: A&O x 3. CN II-XII intact, There are no obvious motor or sensory deficits. Coordination appears grossly intact. Speech is normal. Skin: Patient does have ulceration to the bottom of the left great toe. There is increased redness erythema and inflammation and swelling to this area. amputation of the fourth and fifth on the right. Psychiatric: Cooperative, appropriate mood & affect, normal judgment. Results CBC & Chem 7: 03/26/17 14:15 03/26/17 14:15 Labs: Abnormal Lab Results - Last 24 Hours (Table) 03/26/17 03/26/17 Range/Units 14:15 14:15 WBC 3.5 L (3.8-10.6) k/uL RBC 3.23 L (4.30-5.90) m/uL Hgb 12.2 L (13.0-17.5) gm/dL Hct 33.9 L (39.0-53.0) % MCV 105.1 H (80.0-100.0) fL MCH 37.8 H (25.0-35.0) pg RDW 16.7 H (11.5-15.5) % Plt Count 63 L (150-450) k/uL ESR 40 H (0-15) mm/hr Sodium 136 L (137-145) mmol/L Chloride 97 L (98-107) mmol/L Carbon Dioxide 31 H (22-30) mmol/L BUN 8 L (9-20) mg/dL Total Bilirubin 1.7 H (0.2-1.3) mg/dL Thrombosis Risk Factor Assmnt - DVT/VTE Prophylaxis DVT/VTE Prophylaxis: Pharmacologic Prophylaxis ordered Assessment and Plan Plan: Sepsis secondary to left great toe gangrene, ulcer with surrounding cellulitis Necrosis of left great toe History of chronic nonhealing wound ulcers Peripheral vascular disease History of psoriasis GERD Hyperlipidemia Hypertension Bilateral leg and feet neuropathy nondiabetic History of osteomyelitis Anxiety depression Nicotine addiction History of EtOH abuse and recent binge drinking History of perforated stomach ulcer. BPH DVT prophylaxis with heparin subcu plan: Patient was continued on IV antibiotics in the form of vancomycin and Levaquin. Vascular surgery has been consulted. Continue the wound care. Continue the home medications and pain management. We will continue to follow closely and further recommendations based on the clinical course. Time with Patient: Greater than 30
[2017-03-26] MEDS: METOPROLOL TARTRATE 50 MG TAB PO SCH ×2 (18:41→19:48)
[2017-03-26] MEDS: clonazePAM 1 MG TAB PO SCH ×2 (18:41→23:52)
[2017-03-26] MEDS: GABAPENTIN 100 MG CAP PO SCH ×2 (18:42→19:48)
[2017-03-26] MEDS: LORazepam 2 MG/ML SYRINGE IV PRN ×2 (18:44→23:59)
[2017-03-26] MEDS: HYDROcodone/APAP 10-325MG 1 EACH TAB PO PRN (18:47)
[2017-03-26] MEDS: NICOTINE 14MG/24HR PATCH TRANSDERM SCH (19:47)
[2017-03-26] MEDS: FAMOTIDINE 20 MG TAB PO SCH (19:48)
[2017-03-26] MEDS ORDERED: TAMSULOSIN 0.4 MG CAP.ER.24H PO SCH (21:00)
[2017-03-26] MEDS ORDERED: traZODone HCL 100 MG TAB PO SCH (21:00)
[2017-03-26] MEDS ORDERED: CITALOPRAM HYDROBROMIDE 20 MG TAB PO SCH (21:00)
--- NOTE | 2017-03-26 21:56 | P.CONS ---
History of Present Illness - Reason for Consult Consult date: 03/26/17 - Chief Complaint Left diabetic foot ulcer - History of Present Illness 61-year-old male well-known to the infectious disease service for difficulties with his peripheral vascular disease and a history of chronic alcoholism. He is in the past developed significant ischemic ulcers to the right foot requiring fourth and fifth toe amputation through the metatarsal heads. Now present with a significant ulceration to his left great toe. He is known about the ulceration for about a month. He'll resume drinking quite heavily during this last month. It has not been taking good care of himself. History of MRSA is noted. Patient however is able to relate to a somewhat increasing odor to the toe which is partly why he finally sought care. He is not having much pain. He does feel quite poorly overall. He is still smoking but down to just a few cigarettes per day. He believes he had a fever at home. But no significant chills or rigors. He is not feeling jittery or agitated at this time. Review of Systems 61-year-old male presents to Hospital because of difficulties with his left great toe and increasing ulceration HEENT:Denies headache or acute visual change. Denies sinus or mouth discomforts. Denies neck stiffness or pain. Denies significant oral cavity pain. Denies difficulty on swallowing. Lungs: Is a smoker has minimal cough with minimal sputum production no hemoptysis Cardiovascular: Denies significant shortness of breath, chest pain, chest wall pain, orthopnea, dyspnea on exertion, syncope Gastrointestinal:Denies nausea, vomiting, diarrhea, constipation, hematemesis, melena, hematochezia. No no significant change of bowel habit noticed. Musculoskeletal: denies significant myalgias or arthralgias. No new joint swelling. Denies new back pain. Skin: As per the HPI increasing ulcer to the left great toe Neuro: Denies headache or visual change. Denies any new onset weakness or difficulty with ambulation. Denies falls or seizures. Psychiatric: Currently having ongoing difficulties with alcohol abuse Endocrine: Feels poorly with fatigue and has had some weight loss. Past Medical History Past Medical History: GERD/Reflux, Hyperlipidemia, Hypertension, Pneumonia, Skin Disorder, Vascular Disorder Additional Past Medical History / Comment(s): pvd, bilateral legs and feet neuropathy, hx of non healing wounds both feet, 2007 osteomylitis L foot, PAST STOMACH ULCERS, psoriases, sinus problem History of Any Multi-Drug Resistant Organisms: MRSA Year Discovered:: 04/25/15 MDRO Source:: Right Third Toe Past Surgical History: Hernia Repair Additional Past Surgical History / Comment(s): amputation of the fourth and fifth toes on the right through the metatarsal heads, multiple I&D 2 nonhealing wounds on the foot, repair of perforated ucler of stomach, EGD/colonoscopy, PICC lines in and out. Past Anesthesia/Blood Transfusion Reactions: Motion Sickness Additional Past Anesthesia/Blood Transfusion Reaction / Comm: clausterphobia Additional Psychological History / Comment(s): Single. 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 No experience. No international travel. No animal exposures. Significant alcohol use daily, has been trying to cut down lately. Tobacco smoker daily relates off and on to 2 cigarettes in a day. No injection drug use. No current sexual partner Smoking Status: Current every day smoker - Past Family History Mother Family Medical History: CVA/TIA, Diabetes Mellitus, Vascular Disorder Additional Family Medical History / Comment(s): emotional problems. age 64 of cva Father Family Medical History: Hypertension Additional Family Medical History / Comment(s): age 38 from mva Medications and Allergies Home Medications and Allergies Comment(s): Current Medications Acetaminophen (Tylenol Tab) 650 mg PO Q6HR PRN PRN Reason: Mild Pain or Fever > 100.5 Hydrocodone Bitart/Acetaminophen ([place] 10) 1 each PO Q6H PRN PRN Reason: Pain Last Admin: 03/26/17 18:47 Dose: 1 each Citalopram Hydrobromide (Celexa) 40 mg PO HS [facility] Last Admin: 03/26/17 19:48 Dose: 40 mg Clonazepam (Klonopin) 1 mg PO TID [facility] Last Admin: 03/26/17 18:41 Dose: 1 mg Famotidine (Pepcid) 20 mg PO BID [facility] Last Admin: 03/26/17 19:48 Dose: 20 mg Gabapentin (Neurontin) 100 mg PO TID [facility] Last Admin: 03/26/17 19:48 Dose: 100 mg Heparin Sodium (Porcine) (Heparin) 5,000 unit SQ Q8HR [facility] Hydromorphone HCl (Dilaudid) 1 mg IV Q3HR PRN PRN Reason: Severe Pain Last Admin: 03/26/17 19:48 Dose: 1 mg Vancomycin HCl 1,500 mg/ (Sodium Chloride) 250 mls @ 125 mls/hr IVPB Q12H [facility] Lorazepam (Ativan) 1 mg IV Q6HR PRN PRN Reason: Anxiety Last Admin: 03/26/17 18:44 Dose: 1 mg Metoprolol Tartrate (Lopressor) 50 mg PO TID [facility] Last Admin: 03/26/17 19:48 Dose: 50 mg Naloxone HCl (Narcan) 0.2 mg IV Q2M PRN PRN Reason: Opioid Reversal Nicotine (Habitrol 14mg/24hr Patch) 1 patch TRANSDERM DAILY [facility] Last Admin: 03/26/17 19:47 Dose: 1 patch Ondansetron HCl (Zofran) 4 mg IVP Q8HR PRN PRN Reason: Nausea And Vomiting Tamsulosin HCl (Flomax) 0.4 mg PO [facility] Last Admin: 03/26/17 19:48 Dose: 0.4 mg Trazodone HCl (Desyrel) 100 mg PO [facility] Last Admin: 03/26/17 19:48 Dose: 100 mg Home Medications Medication Instructions Recorded Confirmed Type Citalopram Hydrobromide [CeleXA] 40 mg PO 03/24/14 03/26/17 History Ranitidine HCl [Zantac] 150 mg PO BID 03/24/14 03/26/17 History clonazePAM [KlonoPIN] 1 mg PO TID 03/24/14 03/26/17 History traZODone HCL [Desyrel] 100 mg PO 03/24/14 03/26/17 History HYDROcodone/APAP 10-325MG [[place] 1 - 2 tab PO Q6H PRN 10/09/16 03/26/17 History 10-325] Gabapentin [Neurontin] 100 mg PO TID 03/26/17 03/26/17 History Tamsulosin HCl [Flomax] 0.4 mg PO 03/26/17 03/26/17 History Allergies Allergy/AdvReac Type Severity Reaction Status Date / Time Penicillins Allergy Dyspnea, Verified 03/26/17 14:06 HIVES, THROAT SWELLING Physical Exam Vitals: Vital Signs Temp Pulse Pulse Resp BP BP Pulse Ox 03/26/17 20:00 97.7 F 51 L 16 118/62 95 03/26/17 19:42 16 03/26/17 16:42 97.7 F 87 16 148/83 98 03/26/17 16:37 97.6 F 65 18 160/72 95 03/26/17 15:49 97.6 F 64 18 116/64 97 03/26/17 15:21 54 L 18 125/75 99 03/26/17 14:31 68 18 131/76 99 03/26/17 12:58 98.2 F 110 H 18 124/93 98 Intake and Output 03/26/17 03/26/17 03/26/17 06:59 14:59 22:59 Other: Voiding Method Toilet Weight 99.79 kg 90.9 kg Patient Weight 03/27/17 06:59 Weight 90.9 kg 61-year-old male who appears to be comfortable at this point in time. He is much more disheveled than he's been on prior visits. HEENT: Anicteric conjunctiva are pink and moist nasal mucosa grossly intact without significant lesions, there is no thrush. Poor dentition. Neck: The neck is supple without significant lymphadenopathy or thyromegaly. Lungs: Symmetric air entry with expiratory wheezes that are scattered, but no bronchial sounds or dullness is noted. No egophony. Heart: Regular rate and rhythm with an audible S1-S2, no S3 no S4. There is no significant murmur click or rub, PMI was nondisplaced. Abdomen: Positive bowel sounds soft and nontender without palpable masses or organomegaly. There was no guarding or rebound. The upper extremity is intact. IV site is without difficulty. The right lower extremity has evidence of the amputation of the fourth and fifth toes to the metatarsal heads without difficulty. The left foot shows evidence of the extensive swelling to the great toe with the large plantar ulceration is measuring 3 x 3 x 0.2 cm, there is erythema and some putrid drainage. The other toes are intact. There is minimal erythema on the dorsum of the foot. There is some mild left lower extremity edema that is not tender. No lymphadenopathy is noted into the left inguinal area. No other abnormal lymph nodes are noted. Results CBC & Chem 7: 03/26/17 14:15 03/26/17 14:15 Labs: Abnormal Lab Results - Last 24 Hours (Table) 03/26/17 03/26/17 Range/Units 14:15 14:15 WBC 3.5 L (3.8-10.6) k/uL RBC 3.23 L (4.30-5.90) m/uL Hgb 12.2 L (13.0-17.5) gm/dL Hct 33.9 L (39.0-53.0) % MCV 105.1 H (80.0-100.0) fL MCH 37.8 H (25.0-35.0) pg RDW 16.7 H (11.5-15.5) % Plt Count 63 L (150-450) k/uL ESR 40 H (0-15) mm/hr Sodium 136 L (137-145) mmol/L Chloride 97 L (98-107) mmol/L Carbon Dioxide 31 H (22-30) mmol/L BUN 8 L (9-20) mg/dL Total Bilirubin 1.7 H (0.2-1.3) mg/dL Microbiology - Last 24 Hours (Table) 03/26/17 14:22 Wound Culture - Preliminary Toe - Left First Laboratory Results WBC 3.5 k/uL (3.8-10.6) L 03/26/17 14:15 RBC 3.23 m/uL (4.30-5.90) L 03/26/17 14:15 Hgb 12.2 gm/dL (13.0-17.5) L 03/26/17 14:15 Hct 33.9 % (39.0-53.0) L 03/26/17 14:15 MCV 105.1 fL (80.0-100.0) H 03/26/17 14:15 MCH 37.8 pg (25.0-35.0) H 03/26/17 14:15 MCHC 36.0 g/dL (31.0-37.0) 03/26/17 14:15 RDW 16.7 % (11.5-15.5) H 03/26/17 14:15 Plt Count 63 k/uL (150-450) L 03/26/17 14:15 Neutrophils % 57 % 03/26/17 14:15 Lymphocytes % 27 % 03/26/17 14:15 Monocytes % 10 % 03/26/17 14:15 Eosinophils % 2 % 03/26/17 14:15 Basophils % 1 % 03/26/17 14:15 Neutrophils # 2.0 k/uL (1.3-7.7) 03/26/17 14:15 Lymphocytes # 1.0 k/uL (1.0-4.8) 03/26/17 14:15 Monocytes # 0.4 k/uL (0-1.0) 03/26/17 14:15 Eosinophils # 0.1 k/uL (0-0.7) 03/26/17 14:15 Basophils # 0.0 k/uL (0-0.2) 03/26/17 14:15 Manual Slide Review Performed 03/26/17 14:15 Poikilocytosis (manual Present 03/26/17 14:15 Anisocytosis Slight 03/26/17 14:15 Macrocytosis Moderate 03/26/17 14:15 ESR 40 mm/hr (0-15) H 03/26/17 14:15 Sodium 136 mmol/L (137-145) L 03/26/17 14:15 Potassium 3.8 mmol/L (3.5-5.1) 03/26/17 14:15 Chloride 97 mmol/L (98-107) L 03/26/17 14:15 Carbon Dioxide 31 mmol/L (22-30) H 03/26/17 14:15 Anion Gap 8 mmol/L 03/26/17 14:15 BUN 8 mg/dL (9-20) L 03/26/17 14:15 Creatinine 1.12 mg/dL (0.66-1.25) 03/26/17 14:15 Est GFR (MDRD) Af Amer >60 (>60 ml/min/1.73 sqM) 03/26/17 14:15 Est GFR (MDRD) Non-Af >60 (>60 ml/min/1.73 sqM) 03/26/17 14:15 Glucose 98 mg/dL (74-99) 03/26/17 14:15 Calcium 8.6 mg/dL (8.4-10.2) 03/26/17 14:15 Total Bilirubin 1.7 mg/dL (0.2-1.3) H 03/26/17 14:15 AST 47 U/L (17-59) 03/26/17 14:15 ALT 32 U/L (21-72) 03/26/17 14:15 Alkaline Phosphatase 117 U/L (38-126) 03/26/17 14:15 Total Protein 7.4 g/dL (6.3-8.2) 03/26/17 14:15 Albumin 3.7 g/dL (3.5-5.0) 03/26/17 14:15 Microbiology 03/26/17 14:22 Toe - Left First Wound Culture - Preliminary Assessment and Plan (1) Skin ulcer of left great toe with necrosis of muscle Narrative/Plan: 61-year-old male known to the infectious disease service regarding his prior ischemic ulcerations to his foot in prior ulcers and toe amputations of the fourth and fifth toes right foot. Presents to hospital with at least a 4 week history of increasing worsening ulceration to the left great toe. Known history of MRSA. Vancomycin has started, but given the foul odor and pending culture Will broaden antibiotic therapy for coverage of gram-negative organisms. Ertapenem for now pending further data. He has been seen by vascular surgery it is unclear if the plan is an amputation at this time. We'll ask for a bone scan to evaluate the possibility of osteomyelitis which may further help with the overall surgical plan. Patient is evidence of bone marrow suppression from significant alcohol use. Fluids are being given, will give vitamins also. Protein status needs to be supplemented. Patient may do well for a social service consult to help with this discharge plan. Status: Acute (2) Alcohol abuse Status: Acute (3) Neuropathy Status: Acute (4) Bone marrow suppression Status: Acute
[2017-03-26] MEDS ORDERED: ERTAPENEM 1 GM in SODIUM CHLORIDE 0.9% 50 ML IVPB SCH (22:00)
[2017-03-26 22:23] LABS: C Reactive Protein 24.4 mg/L (<10.0)
[2017-03-26] MEDS: THIAMINE 100 MG/ML 2 ML VIAL IVP SCH (23:52)
[2017-03-26] MEDS: HEPARIN SODIUM,PORCINE 5,000 UNIT/ML 1 ML VIAL SQ SCH (23:52)
[2017-03-27] MEDS: HYDROcodone/APAP 10-325MG 1 EACH TAB PO PRN ×2 (04:28→10:26)
[2017-03-27] MEDS ORDERED: VANCOMYCIN 1,500 MG in SODIUM CHLORIDE 0.9% 250 ML IVPB SCH (06:00)
[2017-03-27] MEDS: HYDROmorphone 1 MG/ML 1 ML SYRINGE IV PRN ×2 (07:22→13:26)
[2017-03-27 07:25] LABS: Anisocytosis Slight; Basophils % (A) 0 %; CH 37.3; CHCM 34.8; Eosinophils # (A) 0.1 k/uL (0-0.7); Eosinophils % (A) 2 %; HCT 30.4 % (39.0-53.0); HDW 3.04; HGB 10.5 gm/dL (13.0-17.5); Luc # (Auto) 0.05; Luc % (Auto) 3; Lymphocytes # (A) 0.5 k/uL (1.0-4.8); Lymphocytes % (A) 25 %; MCH 37.2 pg (25.0-35.0); MCHC 34.6 g/dL (31.0-37.0); MCV 107.4 fL (80.0-100.0); Macrocytosis Marked; Mean Platelet Volume 8.3; Monocytes # (A) 0.2 k/uL (0-1.0); Monocytes % (A) 12 %; Neutrophils # (A) 1.2 k/uL (1.3-7.7); Neutrophils % (A) 58 %; RBC 2.83 m/uL (4.30-5.90); RDW 16.7 % (11.5-15.5); WBC 2.1 k/uL (3.8-10.6); WBC (Perox) 2.31
[2017-03-27 07:42] LABS: Anion Gap 5 mmol/L; Blood Urea Nitrogen 7 mg/dL (9-20); Calcium 8.1 mg/dL (8.4-10.2); Carbon Dioxide 29 mmol/L (22-30); Chloride 100 mmol/L (98-107); Glucose 113 mg/dL (74-99); Non-African American GFR(MDRD) >60 (>60 ml/min/1.73 sqM); Potassium 3.6 mmol/L (3.5-5.1); Sodium 134 mmol/L (137-145)
[2017-03-27] MEDS ORDERED: LIDOCAINE 1% INJ 10MG/ML (20 ML MDV) SQ ONE (08:20)
[2017-03-27 08:53] LABS: Manual Review Performed
[2017-03-27] MEDS ORDERED: COLLAGENASE 250 UNIT/GM OINTMENT 30 GM TUBE TOPICAL SCH (09:15)
[2017-03-27] MEDS: NICOTINE 14MG/24HR PATCH TRANSDERM SCH (10:04)
[2017-03-27] MEDS: GABAPENTIN 100 MG CAP PO SCH ×2 (10:04→17:11)
[2017-03-27] MEDS: FAMOTIDINE 20 MG TAB PO SCH (10:05)
[2017-03-27] MEDS: HEPARIN SODIUM,PORCINE 5,000 UNIT/ML 1 ML VIAL SQ SCH (10:05)
[2017-03-27] MEDS: THIAMINE 100 MG/ML 2 ML VIAL IVP SCH (10:06)
[2017-03-27] MEDS: clonazePAM 1 MG TAB PO SCH ×2 (10:26→17:11)
[2017-03-27] MEDS: METOPROLOL TARTRATE 50 MG TAB PO SCH (11:51)
[2017-03-27] MEDS ORDERED: MULTIVITAMINS, THERA 1 EACH TAB PO SCH (12:00)
[2017-03-27] MEDS ORDERED: FOLIC ACID 1 MG TAB PO SCH (12:00)
--- NOTE | 2017-03-27 12:20 | P.PN ---
Subjective Principal diagnosis: Left great toe ulcer Patient's currently sitting up in bed in no acute distress. Denies any pain. Anxious to go home. Objective - Vital Signs Vital signs: Vital Signs Temp 97.8 F 03/27/17 08:00 Pulse 50 L 03/27/17 08:00 Resp 16 03/27/17 08:00 BP 128/75 03/27/17 08:00 Pulse Ox 100 03/27/17 08:00 Intake & Output 03/26/17 03/27/17 03/27/17 18:59 06:59 18:59 Intake Total 670 Output Total 450 200 Balance 220 -200 Weight 90.9 kg Intake: IV 170 0.9@20 120 Ertapenem 1 gm In Sodium 50 Chloride 0.9% 50 ml @ 100 mls/hr IVPB Q24H [facility] Rx# :[id number] Oral 500 Output: Urine 450 200 Other: Voiding Method Toilet Toilet Urinal - Constitutional General appearance: Present: cooperative, no acute distress - Respiratory Details: Lungs sounds to miss bilaterally. Respirations even, nonlabored. Currently on room air with oxygen saturation 100%. - Cardiovascular Details: S1, S2 present. Regular rate and rhythm. No edema present. Palpable pulses bilaterally. - Gastrointestinal Gastrointestinal Comment(s): Abdomen soft, nontender, nondistended. Active bowel sounds 4 quadrants. Tolerating diet. - Genitourinary Genitourinary Comment(s): Voiding clear, yellow urine. - Integumentary Integumentary Comment(s): Ulceration present to underside of left great toe. Fourth and fifth toes of right foot amputated, evidence of healed wounds. - Musculoskeletal Musculoskeletal: Present: gait normal, strength equal bilaterally - Psychiatric Psychiatric: Present: A&O x's 3, appropriate affect - Allied health notes Allied health notes reviewed: nursing - Labs CBC & Chem 7: 03/27/17 06:55 03/27/17 06:55 Labs: Abnormal Lab Results - Last 24 Hours (Table) 03/26/17 03/26/17 03/26/17 Range/Units 14:15 14:15 14:15 WBC 3.5 L (3.8-10.6) k/uL RBC 3.23 L (4.30-5.90) m/uL Hgb 12.2 L (13.0-17.5) gm/dL Hct 33.9 L (39.0-53.0) % MCV 105.1 H (80.0-100.0) fL MCH 37.8 H (25.0-35.0) pg RDW 16.7 H (11.5-15.5) % Plt Count 63 L (150-450) k/uL Neutrophils # (1.3-7.7) k/uL Lymphocytes # (1.0-4.8) k/uL ESR 40 H (0-15) mm/hr Sodium 136 L (137-145) mmol/L Chloride 97 L (98-107) mmol/L Carbon Dioxide 31 H (22-30) mmol/L BUN 8 L (9-20) mg/dL Glucose (74-99) mg/dL Calcium (8.4-10.2) mg/dL Total Bilirubin 1.7 H (0.2-1.3) mg/dL C-Reactive Protein 24.4 H (<10.0) mg/L Prealbumin 12 L (18-36) mg/dL 03/27/17 03/27/17 Range/Units 06:55 06:55 WBC 2.1 L (3.8-10.6) k/uL RBC 2.83 L (4.30-5.90) m/uL Hgb 10.5 L (13.0-17.5) gm/dL Hct 30.4 L (39.0-53.0) % MCV 107.4 H (80.0-100.0) fL MCH 37.2 H (25.0-35.0) pg RDW 16.7 H (11.5-15.5) % Plt Count 49 L* (150-450) k/uL Neutrophils # 1.2 L (1.3-7.7) k/uL Lymphocytes # 0.5 L (1.0-4.8) k/uL ESR (0-15) mm/hr Sodium 134 L (137-145) mmol/L Chloride (98-107) mmol/L Carbon Dioxide (22-30) mmol/L BUN 7 L (9-20) mg/dL Glucose 113 H (74-99) mg/dL Calcium 8.1 L (8.4-10.2) mg/dL Total Bilirubin (0.2-1.3) mg/dL C-Reactive Protein (<10.0) mg/L Prealbumin (18-36) mg/dL Microbiology - Last 24 Hours (Table) 03/26/17 14:22 Gram Stain - Preliminary Toe - Left First Wound Culture - Preliminary Assessment and Plan (1) Skin ulcer of left great toe Status: Acute Plan: 1. Santyl dressing changes daily to left great toe ulcer. 2. Antibiotic management per infectious disease services. 3. Maintain offloading of left foot. Patient has been instructed that he must stay off his left foot. 4. Medical management per primary care service. 5. May discharge from our standpoint. Follow up in the wound care center with Dr. Baker every week Time with Patient: Greater than 30
[2017-03-27 12:59] VITALS: BMI 25.0
[2017-03-27 16:17] VITALS: BP 131/72; PULSE 60; RESP 18; TEMP 98.2
[2017-03-28] MEDS ORDERED: VANCOMYCIN TROUGH DUE 1 EACH MISC MISCELLANE ONE (05:00)
== END 2017-03-27 18:55 | disposition home or self-care (01) ==
LOC: EC 12:47 → 3OBS 16:05
PROVIDERS: ADMIT Internal Medicine; ATTEND Internal Medicine
DX: L97.523 Non-pressure chronic ulcer of other part of left foot with necrosis of muscle (principal); A41.9 Sepsis, unspecified organism; L03.90 Cellulitis, unspecified; F10.10 Alcohol abuse, uncomplicated; G62.9 Polyneuropathy, unspecified; Z86.14 Personal history of Methicillin resistant Staphylococcus aureus infection; K21.9 Gastro-esophageal reflux disease without esophagitis; F41.9 Anxiety disorder, unspecified; F32.9 Major depressive disorder, single episode, unspecified; N40.0 Benign prostatic hyperplasia without lower urinary tract symptoms; E78.5 Hyperlipidemia, unspecified; I10 Essential (primary) hypertension; I73.9 Peripheral vascular disease, unspecified; F17.210 Nicotine dependence, cigarettes, uncomplicated; Z79.899 Other long term (current) drug therapy; Z88.0 Allergy status to penicillin; Z89.421 Acquired absence of other right toe(s); D75.9 Disease of blood and blood-forming organs, unspecified; Z83.3 Family history of diabetes mellitus; Z82.49 Family history of ischemic heart disease and other diseases of the circulatory system; Z82.3 Family history of stroke
CPT/HCPCS: 96375 ×3; 96366 ×3; 96367 ×2; 96372 ×2; 96376 ×3; 96365; 99284; 36415; 97162; 84134; 80053; 80048; 85652; 85025 ×2; 86140; 87040; 87070; 87205; 87077; 87186; 73630; G0378 ×2; S4990 ×2; J3370 ×2; J2060; J1644 ×2; J3411 ×2; J2405; J1335; J1170 ×2; J1956

== ENCOUNTER 2017-04-08 08:54 | Inpatient (IN) | payer MEDICARE ==
[2017-04-08] MEDS ORDERED: KETOROLAC 60 MG/2 ML VIAL IVP STA (09:18)
[2017-04-08] MEDS ORDERED: SODIUM CHLORIDE 0.9% 1,000 ML IV ONE ×2 (09:19→11:22)
--- NOTE | 2017-04-08 09:22 | ED ---
General Adult HPI - General Chief complaint: Syncope Stated complaint: Syncope Time Seen by Provider: 04/08/17 09:00 Source: patient, EMS, RN notes reviewed Mode of arrival: EMS - History of Present Illness Initial comments: This is a 62-year-old male who states he is an alcoholic is been drinking every day and he drink illness night. Patient states he has not been eating or drinking anything else. Patient states he has had multiple falls recently and today hurt both of his hands. Patient states he did hit his head a little bit denies actually losing consciousness. Patient states he does remember falling and hitting the ground and he remembers being in the ground and being a little bit dazed but not completely losing consciousness. Patient states he had no palpitations chest pain difficulty breathing or shortness of breath per patient denies abdominal pain patient denies nausea vomiting diarrhea. Patient denies any back pain. Patient denies any sites of bleeding. - Related Data Home Medications Medication Instructions Recorded Confirmed Citalopram Hydrobromide [CeleXA] 40 mg PO HS 03/24/14 04/08/17 Ranitidine HCl [Zantac] 150 mg PO BID 03/24/14 04/08/17 clonazePAM [KlonoPIN] 1 mg PO TID 03/24/14 04/08/17 traZODone HCL [Desyrel] 100 mg PO HS 03/24/14 04/08/17 HYDROcodone/APAP 10-325MG [[place] 1 - 2 tab PO Q6H PRN 10/09/16 04/08/17 10-325] Gabapentin [Neurontin] 100 mg PO TID 03/26/17 04/08/17 Tamsulosin HCl [Flomax] 0.4 mg PO HS 03/26/17 04/08/17 risperiDONE [RisperDAL] 1 mg PO DAILY 04/08/17 04/08/17 risperiDONE [RisperDAL] 2 mg PO HS 04/08/17 04/08/17 Previous Rx's Medication Instructions Recorded Metoprolol Tartrate [Lopressor] 50 mg PO TID #90 tab 10/12/16 Allergies Allergy/AdvReac Type Severity Reaction Status Date / Time Penicillins Allergy Dyspnea, Verified 04/06/17 14:45 HIVES, THROAT SWELLING Review of Systems ROS Statement: Those systems with pertinent positive or pertinent negative responses have been documented in the HPI. ROS Other: All systems not noted in ROS Statement are negative. Past Medical History Past Medical History: GERD/Reflux, Hyperlipidemia, Hypertension, Pneumonia, Skin Disorder, Vascular Disorder Additional Past Medical History / Comment(s): pvd, bilateral legs and feet neuropathy, hx of non healing wounds both feet, 2006 osteomylitis L foot, PAST STOMACH ULCERS, psoriases, sinus problem History of Any Multi-Drug Resistant Organisms: MRSA Date of last positivie culture/infection: 04/25/15 MDRO Source:: Right Third Toe Past Surgical History: Hernia Repair Additional Past Surgical History / Comment(s): amputation of the fourth and fifth toes on the right through the metatarsal heads, multiple I&D 2 nonhealing wounds on the foot, repair of perforated ucler of stomach, EGD/colonoscopy, PICC lines in and out. Past Anesthesia/Blood Transfusion Reactions: Motion Sickness Additional Past Anesthesia/Blood Transfusion Reaction / Comment(s): claustrophobia Past Psychological History: ADD/ADHD, Anxiety, Depression Smoking Status: Current every day smoker Past Alcohol Use History: Occasional Past Drug Use History: None Reported - Past Family History Mother Family Medical History: CVA/TIA, Diabetes Mellitus, Vascular Disorder Additional Family Medical History / Comment(s): emotional problems. age 64 of cva Father Family Medical History: Hypertension Additional Family Medical History / Comment(s): age 38 from mva General Exam - General Exam Comments Initial Comments: GENERAL: Patient is well-developed and well-nourished. Patient is nontoxic and well- hydrated and is in mild distress. ENT: Neck is soft and supple. No significant lymphadenopathy is noted. Oropharynx is clear. Moist mucous membranes. Neck has full range of motion without eliciting any pain. EYES: The sclera were anicteric and conjunctiva were pink and moist. Extraocular movements were intact and pupils were equal round and reactive to light. Eyelids were unremarkable. PULMONARY: Unlabored respirations. Good breath sounds bilaterally. No audible rales rhonchi or wheezing was noted. CARDIOVASCULAR: There is a regular rate and rhythm without any murmurs gallops or rubs. ABDOMEN: Soft and nontender with normal bowel sounds. No palpable organomegaly was noted. There is no palpable pulsatile mass. SKIN: Patient has bruiseson his legs arms and right lower back. NEUROLOGIC: Patient is alert and oriented x3. Cranial nerves II through XII are grossly intact. Motor and sensory are also intact. Normal speech, volume and content. Symmetrical smile. MUSCULOSKELETAL: Patient has tenderness in the right first digit as well as the left hand he has tenderness in the mid hand LYMPHATICS: No significant lymphadenopathy is noted PSYCHIATRIC: Normal psychiatric evaluation. Course Vital Signs 04/08/17 04/08/17 09:00 11:00 Temperature 98.6 F 98.6 F Pulse Rate 68 63 Respiratory 17 18 Rate Blood Pressure 105/72 132/62 O2 Sat by Pulse 100 100 Oximetry Medical Decision Making - Medical Decision Making EKG shows what I believe to be is a sinus rhythm with multiple PVCs but EKG is of poor quality. The rate is 83 bpm QRS is 78 QT interval 584 and QTC is 686. Patient has significant QT prolongation I assumed the patient's magnesium was low because he is a drinker and is QT intervals extremity long/started the patient on magnesium immediately I gave the patient a fluid bolus of 1 L of fluid. I also started patient on a banana bag. I spoke with Dr. Decker agreed to admit the patient admitted the patient wrote admitting orders. - Lab Data Result diagrams: 04/08/17 08:57 04/08/17 08:57 Lab Results 04/08/17 04/08/17 04/08/17 Range/Units 08:57 08:57 08:57 WBC 7.7 (3.8-10.6) k/uL RBC 3.29 L (4.30-5.90) m/uL Hgb 12.8 L (13.0-17.5) gm/dL Hct 34.0 L (39.0-53.0) % MCV 103.2 H (80.0-100.0) fL MCH 38.8 H (25.0-35.0) pg MCHC 37.6 H (31.0-37.0) g/dL RDW 16.6 H (11.5-15.5) % Plt Count 80 L D (150-450) k/uL Neutrophils % (Manual) 86.0 % Lymphocytes % (Manual) 11.0 % Monocytes % (Manual) 3.0 % Neutrophils # (Manual) 6.6 (1.3-7.7) k/uL Lymphocytes # (Manual) 0.8 L (1.0-4.8) k/uL Monocytes # (Manual) 0.2 (0-1.0) k/uL Nucleated RBCs 0 (0-0) /100 WBC Hyperchromasia Moderate Poikilocytosis (manual Present Anisocytosis Slight Macrocytosis Moderate PT (9.0-12.0) sec INR (<1.2) APTT (22.0-30.0) sec Sodium 129 L (137-145) mmol/L Potassium 3.6 (3.5-5.1) mmol/L Chloride 91 L (98-107) mmol/L Carbon Dioxide 26 (22-30) mmol/L Anion Gap 12 mmol/L BUN 10 (9-20) mg/dL Creatinine 1.11 (0.66-1.25) mg/dL Est GFR (MDRD) Af Amer >60 (>60 ml/min/1.73 sqM) Est GFR (MDRD) Non-Af >60 (>60 ml/min/1.73 sqM) Glucose 128 H (74-99) mg/dL Calcium 9.0 (8.4-10.2) mg/dL Magnesium 0.7 L* (1.6-2.3) mg/dL Total Bilirubin 4.2 H (0.2-1.3) mg/dL AST 71 H (17-59) U/L ALT 26 (21-72) U/L Alkaline Phosphatase 133 H (38-126) U/L Total Creatine Kinase 400 H (55-170) U/L CK-MB (CK-2) 3.4 H* (0.0-2.4) ng/mL CK-MB (CK-2) Rel Index 0.9 Troponin I 0.018 (0.000-0.034) ng/mL Total Protein 7.8 (6.3-8.2) g/dL Albumin 4.0 (3.5-5.0) g/dL Serum Alcohol mg/dL 04/08/17 04/08/17 Range/Units 08:57 08:57 WBC (3.8-10.6) k/uL RBC (4.30-5.90) m/uL Hgb (13.0-17.5) gm/dL Hct (39.0-53.0) % MCV (80.0-100.0) fL MCH (25.0-35.0) pg MCHC (31.0-37.0) g/dL RDW (11.5-15.5) % Plt Count (150-450) k/uL Neutrophils % (Manual) % Lymphocytes % (Manual) % Monocytes % (Manual) % Neutrophils # (Manual) (1.3-7.7) k/uL Lymphocytes # (Manual) (1.0-4.8) k/uL Monocytes # (Manual) (0-1.0) k/uL Nucleated RBCs (0-0) /100 WBC Hyperchromasia Poikilocytosis (manual Anisocytosis Macrocytosis PT 12.7 H (9.0-12.0) sec INR 1.3 H (<1.2) APTT 28.4 (22.0-30.0) sec Sodium (137-145) mmol/L Potassium (3.5-5.1) mmol/L Chloride (98-107) mmol/L Carbon Dioxide (22-30) mmol/L Anion Gap mmol/L BUN (9-20) mg/dL Creatinine (0.66-1.25) mg/dL Est GFR (MDRD) Af Amer (>60 ml/min/1.73 sqM) Est GFR (MDRD) Non-Af (>60 ml/min/1.73 sqM) Glucose (74-99) mg/dL Calcium (8.4-10.2) mg/dL Magnesium (1.6-2.3) mg/dL Total Bilirubin (0.2-1.3) mg/dL AST (17-59) U/L ALT (21-72) U/L Alkaline Phosphatase (38-126) U/L Total Creatine Kinase (55-170) U/L CK-MB (CK-2) (0.0-2.4) ng/mL CK-MB (CK-2) Rel Index Troponin I (0.000-0.034) ng/mL Total Protein (6.3-8.2) g/dL Albumin (3.5-5.0) g/dL Serum Alcohol <10 mg/dL Disposition Clinical Impression: Prolonged QT interval, Hypomagnesemia, Alcohol abuse, Multiple falls Disposition: ADMITTED IP TO THIS HOSP Referrals: Remington Mustafa MD [Primary Care Provider] - 1-2 days Time of Disposition: 11:21
[2017-04-08] MEDS ORDERED: LORazepam 2 MG/ML SYRINGE IV STA (09:23)
[2017-04-08] MEDS ORDERED: SODIUM CHLORIDE 0.9% 1,000 ML with MVI, ADULT NO.4 WITH VIT K 10 ML, THIAMINE 100 MG, F... IV ONE ×4 (09:23)
[2017-04-08] MEDS: MAGNESIUM SULFATE-D5W PMX 1 GM in DEXTROSE/WATER 1 100ML.BAG IVPB SCH ×4 (09:45→18:11)
[2017-04-08 09:49] LABS: ALT 26 U/L (21-72); AST 71 U/L (17-59); Alkaline Phosphatase 133 U/L (38-126); Anion Gap 12 mmol/L; Blood Urea Nitrogen 10 mg/dL (9-20); Carbon Dioxide 26 mmol/L (22-30); Chloride 91 mmol/L (98-107); Glucose 128 mg/dL (74-99); Non-African American GFR(MDRD) >60 (>60 ml/min/1.73 sqM); Potassium 3.6 mmol/L (3.5-5.1); Sodium 129 mmol/L (137-145); Total Bilirubin 4.2 mg/dL (0.2-1.3); Total Protein 7.8 g/dL (6.3-8.2)
[2017-04-08 10:03] LABS: Magnesium 0.7 mg/dL (1.6-2.3)
[2017-04-08 10:04] LABS: Anisocytosis Slight; CH 39.5; CHCM 38.3; HDW 3.11; HGB 12.8 gm/dL (13.0-17.5); Hyperchromasia Moderate; MCH 38.8 pg (25.0-35.0); MCHC 37.6 g/dL (31.0-37.0); MCV 103.2 fL (80.0-100.0); Macrocytosis Moderate; Mean Platelet Volume 8.1; RBC 3.29 m/uL (4.30-5.90); RDW 16.6 % (11.5-15.5); WBC 7.7 k/uL (3.8-10.6)
[2017-04-08 10:07] LABS: INR 1.3 (<1.2); Partial Thromboplastin Time 28.4 sec (22.0-30.0); Prothrombin Time 12.7 sec (9.0-12.0)
[2017-04-08 10:17] LABS: Troponin I 0.018 ng/mL (0.000-0.034)
[2017-04-08 10:23] LABS: Add Differential Manual Differential
[2017-04-08 10:30] LABS: Nucleated Red Blood Cells 0 /100 WBC (0-0); Total Cells Counted 100
[2017-04-08 10:42] LABS: Creatine Kinase MB 3.4 ng/mL (0.0-2.4)
--- NOTE | 2017-04-08 10:51 | CT ---
EXAMINATION TYPE: CT brain wo con DATE OF EXAM: 04/08/2017 COMPARISON: 10/09/2016 HISTORY: 62-year-old male frequent falls, pain. TECHNIQUE: Examination was done in axial plane without intravenous contrast. Coronal and sagittal r econstructions performed. CT DLP: 1248 mGycm Automated exposure control for dose reduction was used. FINDINGS: There is no evidence of acute intracranial hemorrhage, acute ischemic changes, mass, mass-effect, or extra-axial fluid collection. There is no effacement of cerebral sulci or basal subarachnoid cister ns. There is no hydrocephalus. There is no midline shift. Burns-white matter distinction is preserv ed. There is mild generalized supratentorial volume loss. Visualized paranasal sinuses and mastoid air cells are well pneumatized. Orbits and globes are intact . IMPRESSION: No acute intracranial abnormality seen. Similar mild atrophy.
--- NOTE | 2017-04-08 11:03 | XR ---
EXAMINATION TYPE: XR chest 2V DATE OF EXAM: 04/08/2017 COMPARISON: 04/26/2015 HISTORY: Syncope TECHNIQUE: Frontal and lateral views of the chest are obtained. FINDINGS: There is no focal air space opacity, pleural effusion, or pneumothorax seen. The cardiac silhouette size is within normal limits. The osseous structures are intact. IMPRESSION: No acute cardiopulmonary process.
--- NOTE | 2017-04-08 11:06 | XR ---
EXAMINATION TYPE: XR hand complete bilateral DATE OF EXAM: 04/08/2017 CLINICAL HISTORY: Pain after a fall TECHNIQUE: Frontal, lateral and oblique images of the bilateral hands are obtained. COMPARISON: None. FINDINGS: There is no acute fracture/dislocation evident in either hand. Mild joint space narrowing and sclerosis are seen of the first metacarpal phalangeal and distal interphalangeal joints bilateral ly. The overlying soft tissue appears unremarkable. IMPRESSION: There is no acute fracture or dislocation in either hand.
[2017-04-08] MEDS ORDERED: THIAMINE 100 MG/ML 2 ML VIAL IM STA (11:22)
[2017-04-08] MEDS ORDERED: LORazepam 2 MG/ML SYRINGE IV PRN (11:22)
[2017-04-08] MEDS ORDERED: HYDROmorphone 1 MG/ML 1 ML SYRINGE IVP STA (11:34)
[2017-04-08] MEDS: LORazepam 2 MG/ML SYRINGE IV PRN ×3 (11:41→15:36)
--- NOTE | 2017-04-08 15:09 | P.CRDCN ---
History of Present Illness Consult date: 04/08/17 History of present illness: This is a 62-year-old gentleman with history of alcohol abuse, hypertension, hypercholesterolemia and also peripheral neuropathy has been drinking for several days and not eating properly. Apparently he was falling. He came to the emergency room because of recurrent falls. His EKG showed sinus bradycardia with PVCs with a prolonged QT interval. His admission was 0.7. Patient denied any chest pain, complains of mild shortness of breath. Cardiology consult is requested because of prolonged QT interval. Patient has had issues with prolonged QT interval in the past also. We'll going correct the diminished level and repeat EKG tomorrow. We'll also get an echocardiogram. Further recommendation depend upon the critical course. Patient doesn't appear to be in acute distress at this time. Review of Systems As per the chart Past Medical History Past Medical History: GERD/Reflux, Hyperlipidemia, Hypertension, Pneumonia, Skin Disorder, Vascular Disorder Additional Past Medical History / Comment(s): pvd, bilateral legs and feet neuropathy, hx of non healing wounds both feet, 2007 osteomylitis L foot, PAST STOMACH ULCERS, psoriases, sinus problem History of Any Multi-Drug Resistant Organisms: MRSA Date of last positivie culture/infection: 04/25/15 MDRO Source:: Right Third Toe Past Surgical History: Hernia Repair Additional Past Surgical History / Comment(s): amputation of the fourth and fifth toes on the right through the metatarsal heads, multiple I&D 2 nonhealing wounds on the foot, repair of perforated ucler of stomach, EGD/colonoscopy, PICC lines in and out. Past Anesthesia/Blood Transfusion Reactions: Motion Sickness Additional Past Anesthesia/Blood Transfusion Reaction / Comment(s): claustrophobia Past Psychological History: ADD/ADHD, Anxiety, Depression Smoking Status: Current every day smoker Past Alcohol Use History: Occasional Past Drug Use History: None Reported - Past Family History Mother Family Medical History: CVA/TIA, Diabetes Mellitus, Vascular Disorder Additional Family Medical History / Comment(s): emotional problems. age 64 of cva Father Family Medical History: Hypertension Additional Family Medical History / Comment(s): age 38 from mva Medications and Allergies Home Medications Medication Instructions Recorded Confirmed Type Citalopram Hydrobromide [CeleXA] 40 mg PO HS 03/24/14 04/08/17 History Ranitidine HCl [Zantac] 150 mg PO BID 03/24/14 04/08/17 History clonazePAM [KlonoPIN] 1 mg PO TID 03/24/14 04/08/17 History traZODone HCL [Desyrel] 100 mg PO HS 03/24/14 04/08/17 History HYDROcodone/APAP 10-325MG [[place] 1 - 2 tab PO Q6H PRN 10/09/16 04/08/17 History 10-325] Gabapentin [Neurontin] 100 mg PO TID 03/26/17 04/08/17 History Tamsulosin HCl [Flomax] 0.4 mg PO HS 03/26/17 04/08/17 History risperiDONE [RisperDAL] 1 mg PO DAILY 04/08/17 04/08/17 History risperiDONE [RisperDAL] 2 mg PO HS 04/08/17 04/08/17 History Allergies Allergy/AdvReac Type Severity Reaction Status Date / Time Penicillins Allergy Dyspnea, Verified 04/06/17 14:45 HIVES, THROAT SWELLING Physical Exam Vitals: Vital Signs Temp Pulse Resp BP Pulse Ox 04/08/17 12:15 98.0 F 70 20 122/56 99 04/08/17 11:45 97.9 F 73 20 118/57 99 04/08/17 11:00 98.6 F 63 18 132/62 100 04/08/17 09:00 98.6 F 68 17 105/72 100 Intake and Output 04/08/17 04/08/17 04/08/17 06:59 14:59 22:59 Other: Weight 90.718 kg Patient Weight 04/09/17 06:59 Weight 90.718 kg GENERAL EXAM: Patient is alert and oriented and doesn't appear to be in any acute distress HEENT: Normocephalic. Normal reaction of pupils, equal size, normal range of extraocular motion. No erythema or exudates in the throat. NECK: No masses, no nuchal rigidity. CHEST: No chest wall deformity. LUNGS: Equal air entry with no crackles or wheeze. HEART: S1 and S2 normal with no audible mumurs or gallops. Regular rhythm, femorals equal on both sides.. ABDOMEN: No hepatosplenomegaly, normal bowel sounds, no guarding or rigidity. SKIN: Has some abrasions and ulcerations on the legs. CENTRAL NERVOUS SYSTEM: No focal deficits. EXTREMITIES: There appears to swelling of the big toe on one of the foot Results 04/08/17 08:57 04/08/17 08:57 Cardiac Enzymes 04/08/17 04/08/17 Range/Units 08:57 08:57 AST 71 H (17-59) U/L CK-MB (CK-2) 3.4 H* (0.0-2.4) ng/mL Troponin I 0.018 (0.000-0.034) ng/mL Coagulation 04/08/17 Range/Units 08:57 PT 12.7 H (9.0-12.0) sec APTT 28.4 (22.0-30.0) sec CBC 04/08/17 Range/Units 08:57 WBC 7.7 (3.8-10.6) k/uL RBC 3.29 L (4.30-5.90) m/uL Hgb 12.8 L (13.0-17.5) gm/dL Hct 34.0 L (39.0-53.0) % Plt Count 80 L D (150-450) k/uL Comprehensive Metabolic Panel 04/08/17 Range/Units 08:57 Sodium 129 L (137-145) mmol/L Potassium 3.6 (3.5-5.1) mmol/L Chloride 91 L (98-107) mmol/L Carbon Dioxide 26 (22-30) mmol/L BUN 10 (9-20) mg/dL Creatinine 1.11 (0.66-1.25) mg/dL Glucose 128 H (74-99) mg/dL Calcium 9.0 (8.4-10.2) mg/dL AST 71 H (17-59) U/L ALT 26 (21-72) U/L Alkaline Phosphatase 133 H (38-126) U/L Total Protein 7.8 (6.3-8.2) g/dL Albumin 4.0 (3.5-5.0) g/dL Current Medications Generic Name Dose Route Start Last Admin Trade Name Freq PRN Reason Stop Dose Admin Parenteral Vitamin Supplement 1,011.2 mls @ 150 mls/hr 04/08/17 09:23 09:46 10 ml/ Thiamine HCl 100 mg/ IV 04/08/17 16:07 150 mls/hr Folic Acid 1 mg/ Sodium .Q6H45M ONE Administration Chloride Sodium Chloride 1,000 mls @ 100 mls/hr 04/08/17 11:22 Saline 0.9% IV 04/08/17 21:21 .Q10H ONE Lorazepam 1 mg 04/08/17 11:22 04/08/17 11:41 Ativan IV 1 mg Q2HR PRN Administration CIWA 8 or 9 Lorazepam 1 mg 04/08/17 11:22 04/08/17 14:32 Ativan IV 1 mg Q1HR PRN Administration CIWA 10 to 15 Lorazepam 2 mg 04/08/17 11:22 Ativan IV Q10M PRN CIWA 16 or higher Thiamine HCl 100 mg 04/08/17 17:00 Vitamin B-1 PO BID@1200,1700 INGA Intake and Output 04/08/17 04/08/17 04/08/17 06:59 14:59 22:59 Other: Weight 90.718 kg Patient Weight 04/09/17 06:59 Weight 90.718 kg 04/08/17 08:57 04/08/17 08:57 EKG Interpretations (text) Sinus rhythm with prolonged QT interval and PVCs Assessment and Plan (1) Hypertension Status: Acute (2) Alcohol abuse Status: Acute (3) Hypomagnesemia Status: Acute (4) Multiple falls Status: Acute (5) Prolonged QT interval Status: Acute (6) PVD (peripheral vascular disease) Status: Acute Plan: Continue to correct patient's hypomagnesemia. Repeat EKG tomorrow. Echocardiogram. Further recommendations depend upon the clinical course.
[2017-04-08] MEDS: HYDROcodone/APAP 10-325MG 1 EACH TAB PO PRN ×2 (16:26→23:33)
[2017-04-08] MEDS: THIAMINE 100 MG TAB PO SCH (16:27)
[2017-04-08] MEDS: GABAPENTIN 100 MG CAP PO SCH ×2 (16:27→21:14)
[2017-04-08] MEDS: METOPROLOL TARTRATE 50 MG TAB PO SCH ×2 (16:28→21:14)
[2017-04-08] MEDS: clonazePAM 1 MG TAB PO SCH ×2 (16:33→21:14)
--- NOTE | 2017-04-08 17:50 | P.HPIM ---
History of Present Illness H&P Date: 04/08/17 Chief Complaint: falls History of presenting complaint: This is a pleasant 62-year-old patient of Dr. Woods. Multiple medical problems. Patient chronic stable medical conditions include GERD, hyperlipidemia, hypertension, peripheral artery disease, peripheral neuropathy from alcoholism and possible bipolar disorder. About 2 weeks ago patient decided to stop smoking and 5 days ago decided to stop his alcohol. Patient has not been feeling well week tired rundown. [place] dizzy lightheaded when standing and fell. Doesn't eat too well. When came to the ER was found to have prolonged QT interval and a low magnesium. Given IV supplement. Patient also gets diarrhea anywhere from 3-5 times a day. GEN.: [ Tired] EYES: [None] HEENT: [None] NECK: [None] RESPIRATORY: Occasional cough and shortness of breath] CARDIOVASCULAR: [None] GASTROINTESTINAL: [As above with no abdominal pain] GENITOURINARY: [None] MUSCULOSKELETAL: [Aches and pains in different joints] LYMPHATICS: [None] HEMATOLOGICAL: [None] PSYCHIATRY: [Feels a bit low but no suicidal] NEUROLOGICAL: [Numbness and tingling especially in the hands and feet DERMATOLOGICAL: Bruising in multiple areas and some superficial breakdown of skin] Past medical history: Chronic alcoholism, smoking, GERD, hyperlipidemia, essential hypertension,, peripheral neuropathy secondary to alcoholism, possible bipolar disorder, left big toe wound be followed by Dr. Baker the wound care center. Past surgical history: 100 up, Addition of the fourth and fifth toes on the right through the metatarsal heads, multiple I&D's, 2 nonhealing wounds of the foot, repair of the perforated ulcer of the stomach, Home medications reviewed as listed in the computer Social history: Visit [place], smoked a pack a day up to 2 weeks ago, smoked anywhere from 3/4-1 pint of whiskey a day VITAL SIGNS: [d temperature 90.7, pulse 68, restless when sitting, blood pressure 141/78, 100% room air] GENERAL: [Average built, sitting up, tired appearing, unkempt]. EYES: [Pupils equal. Conjunctiva clyde]l. HEENT: [External appearance of nose and ears normal, oral cavity grossly normal] . NECK: [JVD not raised; masses not palpable]. HEART: [First and second heart sounds are normal; no edema]. LUNGS:[ Respiratory rate normal; decreased breath sound]. ABDOMEN: [Soft, nontender, liver spleen not palpable, no masses palpable]. LYMPHATICS: [No lymph nodes palpable in the axilla and neck]. PSYCH: [Alert and oriented x3; mood and affect slightly low]l. NEUROLOGICAL: [Cranial nerves grossly intact; no facial asymmetry, power and sensation are decreased distally DERMATOLOGICAL: Patient has a plantar wound on the left big toe. Diffuse bruising in multiple areas especially the lower extremity Arterial: Patient has good distal pulses]. Labs: EKG prolonged QT corrected 686 ms White count 7.7, hemoglobin 12.8, platelet 18, sodium 129, magnesium 0.7, AST 71 , Assessment: -Prolonged QT interval secondary to severe hypomagnesemia leading to possibly false Chronic alcoholic hepatitis -Hyponatremia likely hypoosmolar from decreased salt intake and excessive water intake and follow alcohol -Thrombocytopenia likely from alcoholism Macrocytic anemia mild secondary to alcoholism -Possible bipolar disorder -Chronic peripheral neuropathy secondary to alcoholism element of pain -Multiple areas of bruising secondary to fall -Possible COPD in a smoker Plan: Patient counseled against alcohol and smoking. Given a nicotine patch. Watch for DTs. Magnesium is been aggressively supplemented. Cardiology was consulted. Past Medical History Past Medical History: GERD/Reflux, Hyperlipidemia, Hypertension, Pneumonia, Skin Disorder, Vascular Disorder Additional Past Medical History / Comment(s): pvd, bilateral legs and feet neuropathy, hx of non healing wounds both feet goes to [facility] on 2006 osteomylitis L foot, PAST STOMACH ULCERS, psoriases, sinus problem History of Any Multi-Drug Resistant Organisms: MRSA Date of last positivie culture/infection: 04/25/15 MDRO Source:: Right Third Toe Past Surgical History: Hernia Repair Additional Past Surgical History / Comment(s): amputation of the fourth and fifth toes on the right through the metatarsal heads, multiple I&D 2 nonhealing wounds on the foot, repair of perforated ucler of stomach, EGD/colonoscopy, PICC lines in and out. Past Anesthesia/Blood Transfusion Reactions: Motion Sickness Additional Past Anesthesia/Blood Transfusion Reaction / Comment(s): claustrophobia Smoking Status: Former smoker - Past Family History Mother Family Medical History: CVA/TIA, Diabetes Mellitus, Vascular Disorder Additional Family Medical History / Comment(s): emotional problems. age 64 of cva Father Family Medical History: Hypertension Additional Family Medical History / Comment(s): age 38 from mva Medications and Allergies Home Medications Medication Instructions Recorded Confirmed Type Citalopram Hydrobromide [CeleXA] 40 mg PO HS 03/24/14 04/08/17 History Ranitidine HCl [Zantac] 150 mg PO BID 03/24/14 04/08/17 History clonazePAM [KlonoPIN] 1 mg PO TID 03/24/14 04/08/17 History traZODone HCL [Desyrel] 100 mg PO HS 03/24/14 04/08/17 History HYDROcodone/APAP 10-325MG [[place] 1 - 2 tab PO Q6H PRN 10/09/16 04/08/17 History 10-325] Gabapentin [Neurontin] 100 mg PO TID 03/26/17 04/08/17 History Tamsulosin HCl [Flomax] 0.4 mg PO HS 03/26/17 04/08/17 History risperiDONE [RisperDAL] 1 mg PO DAILY 04/08/17 04/08/17 History risperiDONE [RisperDAL] 2 mg PO HS 04/08/17 04/08/17 History Allergies Allergy/AdvReac Type Severity Reaction Status Date / Time Penicillins Allergy Dyspnea, Verified 04/06/17 14:45 HIVES, THROAT SWELLING Physical Exam Vitals: Results CBC & Chem 7: 04/08/17 08:57 04/08/17 08:57
[2017-04-08] MEDS ORDERED: DEXTROSE 5% IN WATER 100 ML with AMIODARONE 150 MG IV ONE (18:30)
[2017-04-08] MEDS ORDERED: CITALOPRAM HYDROBROMIDE 20 MG TAB PO SCH (21:00)
[2017-04-08] MEDS ORDERED: traZODone HCL 100 MG TAB PO SCH (21:00)
[2017-04-08] MEDS: FAMOTIDINE 20 MG TAB PO SCH (21:13)
[2017-04-08] MEDS: risperiDONE 2 MG TAB PO SCH (21:13)
[2017-04-08] MEDS: TAMSULOSIN 0.4 MG CAP.ER.24H PO SCH (21:14)
[2017-04-09] MEDS: LORazepam 2 MG/ML SYRINGE IV PRN (03:21)
[2017-04-09] MEDS: HYDROcodone/APAP 10-325MG 1 EACH TAB PO PRN ×4 (04:51→23:15)
[2017-04-09 06:38] LABS: Anisocytosis Slight; Basophils % (A) 0 %; CH 39.7; CHCM 36.9; Eosinophils # (A) 0.1 k/uL (0-0.7); Eosinophils % (A) 1 %; HCT 27.3 % (39.0-53.0); HDW 2.96; Luc # (Auto) 0.08; Luc % (Auto) 2; Lymphocytes # (A) 1.1 k/uL (1.0-4.8); Lymphocytes % (A) 23 %; MCH 39.3 pg (25.0-35.0); MCHC 36.4 g/dL (31.0-37.0); MCV 107.9 fL (80.0-100.0); Macrocytosis Marked; Mean Platelet Volume 9.2; Monocytes # (A) 0.3 k/uL (0-1.0); Monocytes % (A) 5 %; Neutrophils # (A) 3.3 k/uL (1.3-7.7); Neutrophils % (A) 68 %; RBC 2.53 m/uL (4.30-5.90); RDW 16.4 % (11.5-15.5); WBC 4.8 k/uL (3.8-10.6); WBC (Perox) 4.95
[2017-04-09 06:55] LABS: Anion Gap 6 mmol/L; Blood Urea Nitrogen 10 mg/dL (9-20); Calcium 8.4 mg/dL (8.4-10.2); Carbon Dioxide 29 mmol/L (22-30); Chloride 97 mmol/L (98-107); Glucose 105 mg/dL (74-99); Magnesium 1.7 mg/dL (1.6-2.3); Non-African American GFR(MDRD) >60 (>60 ml/min/1.73 sqM); Potassium 3.1 mmol/L (3.5-5.1); Sodium 132 mmol/L (137-145)
[2017-04-09 06:59] LABS: HGB 9.9 gm/dL (13.0-17.5)
[2017-04-09 07:16] LABS: Manual Review Performed
[2017-04-09] MEDS: METOPROLOL TARTRATE 50 MG TAB PO SCH ×3 (09:34→21:25)
[2017-04-09] MEDS: risperiDONE 1 MG TAB PO SCH (09:34)
[2017-04-09] MEDS: GABAPENTIN 100 MG CAP PO SCH ×3 (09:35→21:25)
[2017-04-09] MEDS: ENOXAPARIN 40 MG/0.4 ML SYRINGE SQ SCH (09:35)
[2017-04-09] MEDS: FAMOTIDINE 20 MG TAB PO SCH ×2 (09:35→21:25)
[2017-04-09] MEDS: clonazePAM 1 MG TAB PO SCH ×3 (09:37→21:29)
--- NOTE | 2017-04-09 11:14 | ECHOF ---
Referral Reason:Chest pain and cardiomyopathy MEASUREMENTS -------- HEIGHT: 162.6 cm WEIGHT: 90.7 kg BP: 126/78 RVIDd: 3.4 cm (< 3.3) IVSd: 1.0 cm (0.6 - 1.1) LVIDd: 5.4 cm (3.9 - 5.3) LVPWd: 1.2 cm (0.6 - 1.1) IVSs: 1.6 cm LVIDs: 3.3 cm LVPWs: 1.8 cm LA Diam: 3.5 cm (2.7 - 3.8) LAESV Index (A-L): 25.42 ml/m Ao Diam: 3.5 cm (2.0 - 3.7) AV Cusp: 2.7 cm (1.5 - 2.6) MV EXCURSION: 13.189 mm (> 18.000) MV EF SLOPE: 202 mm/s (70 - 150) EPSS: 0.9 cm AV maxP.71 mmHg AV meanP.73 mmHg AR PHT: 1691 ms RAP: 5.00 mmHg RVSP: 35.72 mmHg FINDINGS -------- This was a technically adequate study. The left ventricular size is normal. There is borderline concentric left ventricular hypertrophy. Overall left ventricular systolic function is normal with, an EF between 55 - 60 %. The right ventricle is mildly enlarged. Normal LA size by volume 22+/-6 ml/m2. The right atrium is normal in size. There is mild aortic valve sclerosis. There is [id number] aortic regurgitation. Peak/mean gradient across the Aortic Valve is 20.71mmHg / 8.73mmHg. Mild mitral annular calcification present. There is trace to mild mitral regurgitation. Mild tricuspid regurgitation present. There is mild pulmonary hypertension. The right ventricular systolic pressure, as measured by Doppler, is 35.72mmHg. The pulmonic valve was not well visualized. The aortic root size is normal. Normal inferior vena cava with normal inspiratory collapse consistent with estimated right atrial pressure of 5 mmHg. There is no pericardial effusion. CONCLUSIONS -------- 1. This was a technically adequate study. 2. Mild mitral annular calcification present. 3. There is trace to mild mitral regurgitation. 4. Mild tricuspid regurgitation present. 5. There is mild pulmonary hypertension. 6. The right ventricular systolic pressure, as measured by Doppler, is 35.72mmHg. 7. The pulmonic valve was not well visualized. 8. The aortic root size is normal. 9. Normal inferior vena cava with normal inspiratory collapse consistent with estimated right atrial pressure of 5 mmHg. 10. There is no pericardial effusion. 11. The left ventricular size is normal. 12. There is borderline concentric left ventricular hypertrophy. 13. Overall left ventricular systolic function is normal with, an EF between 55 - 60 %. 14. The right ventricle is mildly enlarged. 15. Normal LA size by volume 22+/-6 ml/m2. 16. There is mild aortic valve sclerosis. 17. There is [id number] aortic regurgitation. 18. Peak/mean gradient across the Aortic Valve is 20.71mmHg / 8.73mmHg. DYE BLENDER: Maritza Patricia RDCS
--- NOTE | 2017-04-09 11:43 | P.GSCN ---
History of Present Illness Consult date: 04/09/17 Reason for Consult: Left great toe ulcer, treatment recommendations. Requesting physician: Damien Bruce History of present illness: 2-year-old gentleman presented to the emergency room yesterday with complaints of not feeling well and multiple falls throughout the day. He does state that he has had but doesn't think he lost consciousness. He did have a head CT which did not demonstrate any acute process. He has a known history of alcohol abuse and states that he has not been eating very well recently. He has multiple areas of ecchymosis including the right lower back, left shoulder and upper arm, and right lower extremity over the knee and hayden area. In addition, he has multiple areas of abrasions and small wounds which are healed over. He does have a chronic ulcer on his left great toe, and Dr. Baker was consulted for management as this patient is seen in the wound care center Review of Systems 14 point review systems was completed and was negative except as noted. - Constitutional Reports as per HPI - Musculoskeletal Reports as per HPI - Neurological Reports as per HPI Past Medical History Past Medical History: GERD/Reflux, Hyperlipidemia, Hypertension, Pneumonia, Skin Disorder, Vascular Disorder Additional Past Medical History / Comment(s): pvd, bilateral legs and feet neuropathy, hx of non healing wounds both feet goes to [facility] on 2006 osteomylitis L foot, PAST STOMACH ULCERS, psoriases, sinus problem History of Any Multi-Drug Resistant Organisms: MRSA Year Discovered:: 04/25/15 MDRO Source:: Right Third Toe Past Surgical History: Hernia Repair Additional Past Surgical History / Comment(s): amputation of the fourth and fifth toes on the right through the metatarsal heads, multiple I&D 2 nonhealing wounds on the foot, repair of perforated ucler of stomach, EGD/colonoscopy, PICC lines in and out. Past Anesthesia/Blood Transfusion Reactions: Motion Sickness Additional Past Anesthesia/Blood Transfusion Reaction / Comm: claustrophobia Smoking Status: Former smoker Past Alcohol Use History: Heavy - Past Family History Mother Family Medical History: CVA/TIA, Diabetes Mellitus, Vascular Disorder Additional Family Medical History / Comment(s): emotional problems. age 64 of cva Father Family Medical History: Hypertension Additional Family Medical History / Comment(s): age 38 from [facility]va Medications and Allergies Home Medications Medication Instructions Recorded Confirmed Type Citalopram Hydrobromide [CeleXA] 40 mg PO HS 03/24/14 04/08/17 History Ranitidine HCl [Zantac] 150 mg PO BID 03/24/14 04/08/17 History clonazePAM [KlonoPIN] 1 mg PO TID 03/24/14 04/08/17 History traZODone HCL [Desyrel] 100 mg PO HS 03/24/14 04/08/17 History HYDROcodone/APAP 10-325MG [[place] 1 - 2 tab PO Q6H PRN 10/09/16 04/08/17 History 10-325] Gabapentin [Neurontin] 100 mg PO TID 03/26/17 04/08/17 History Tamsulosin HCl [Flomax] 0.4 mg PO HS 03/26/17 04/08/17 History risperiDONE [RisperDAL] 1 mg PO DAILY 04/08/17 04/08/17 History risperiDONE [RisperDAL] 2 mg PO HS 04/08/17 04/08/17 History Allergies Allergy/AdvReac Type Severity Reaction Status Date / Time Penicillins Allergy Dyspnea, Verified 04/06/17 14:45 HIVES, THROAT SWELLING Surgical - Exam Vital Signs Temp Pulse Resp BP Pulse Ox 98.6 F 68 17 105/72 100 04/08/17 09:00 04/08/17 09:00 04/08/17 09:00 04/08/17 09:00 04/08/17 09:00 - General no distress, no pain - Eyes PERRL, normal ocular movement - ENT no hearing loss - Neck no masses, no bruits, trachea midline - Respiratory Lung sounds diminished bilaterally. Respirations even, nonlabored. Currently on room air with oxygen saturation 100%. normal expansion, normal respiratory effort - Cardiovascular Normal sinus rhythm on telemetry. Rhythm: regular Heart Sounds: normal: S1, S2 - Abdomen Abdomen: soft, non tender, bowel sounds - Genitourinary Deferred - Rectum Deferred - Integumentary Ecchymotic areas over her right lower back, left shoulder and upper arm, right lower extremity over the knee and hayden area. Multiple abrasions and small wounds which are scabbed over. Left big toe ulceration, approximately 2 cm x 2 cm. Middle circular area looks black and dry, surrounded by red open skin without drainage. - Neurologic normal sensation - Psychiatric oriented to time, oriented to person, oriented to place, speech is normal Results - Labs 04/09/17 06:14 04/09/17 06:14 Abnormal Lab Results - Last 24 Hours (Table) 04/08/17 04/09/17 04/09/17 Range/Units 15:23 06:14 06:14 RBC 2.53 L (4.30-5.90) m/uL Hgb 9.9 L D (13.0-17.5) gm/dL Hct 27.3 L (39.0-53.0) % MCV 107.9 H (80.0-100.0) fL MCH 39.3 H (25.0-35.0) pg RDW 16.4 H (11.5-15.5) % Plt Count 57 L (150-450) k/uL Sodium 132 L (137-145) mmol/L Potassium 3.1 L (3.5-5.1) mmol/L Chloride 97 L (98-107) mmol/L Glucose 105 H (74-99) mg/dL Magnesium 1.4 L (1.6-2.3) mg/dL Diabetes panel 04/09/17 Range/Units 06:14 Sodium 132 L (137-145) mmol/L Potassium 3.1 L (3.5-5.1) mmol/L Chloride 97 L (98-107) mmol/L Carbon Dioxide 29 (22-30) mmol/L BUN 10 (9-20) mg/dL Creatinine 1.03 (0.66-1.25) mg/dL Glucose 105 H (74-99) mg/dL Calcium 8.4 (8.4-10.2) mg/dL Calcium panel 04/09/17 Range/Units 06:14 Calcium 8.4 (8.4-10.2) mg/dL Pituitary panel 04/09/17 Range/Units 06:14 Sodium 132 L (137-145) mmol/L Potassium 3.1 L (3.5-5.1) mmol/L Chloride 97 L (98-107) mmol/L Carbon Dioxide 29 (22-30) mmol/L BUN 10 (9-20) mg/dL Creatinine 1.03 (0.66-1.25) mg/dL Glucose 105 H (74-99) mg/dL Calcium 8.4 (8.4-10.2) mg/dL Adrenal panel 04/09/17 Range/Units 06:14 Sodium 132 L (137-145) mmol/L Potassium 3.1 L (3.5-5.1) mmol/L Chloride 97 L (98-107) mmol/L Carbon Dioxide 29 (22-30) mmol/L BUN 10 (9-20) mg/dL Creatinine 1.03 (0.66-1.25) mg/dL Glucose 105 H (74-99) mg/dL Calcium 8.4 (8.4-10.2) mg/dL - Imaging Chest x-ray: image reviewed EKG: image reviewed Assessment and Plan (1) Alcohol abuse Status: Acute (2) Hypertension Status: Acute (3) Hypomagnesemia Status: Acute (4) Multiple falls Status: Acute (5) Prolonged QT interval Status: Acute (6) Skin ulcer of left great toe Status: Acute Plan: The patient was seen and examined at the bedside. Chart/diagnostics were reviewed. Recommend medical management per primary care service. Will order Santyl dressing changes daily as per previously ordered. Patient needs strict offloading of left foot. Will need to follow up in the wound care center every week as previously ordered. Patient counseled on smoking and alcohol cessation. Physical therapy ordered to help patient with mobility while still offloading left foot. Will discuss the case with Dr. Baker. More recommendations to follow. Thank you Dr. montes was consulted. Please call us with any questions. Time with Patient: Greater than 30
--- NOTE | 2017-04-09 12:55 | P.PN ---
Subjective Principal diagnosis: Hypomagnesemia his is a 62-year-old gentleman with history of alcohol abuse, hypertension, hypercholesterolemia and also peripheral neuropathy has been drinking for several days and not eating properly. Apparently he was falling. He came to the emergency room because of recurrent falls. His EKG showed sinus bradycardia with PVCs with a prolonged QT interval. His admission was 0.7. Patient denied any chest pain, complains of mild shortness of breath. Cardiology consult is requested because of prolonged QT interval. Patient has had issues with prolonged QT interval in the past also. We'll going correct the diminished level and repeat EKG tomorrow. We'll also get an echocardiogram. Further recommendation depend upon the critical course. Patient doesn't appear to be in acute distress at this time. 04/09/2017 Echo cardiac gram with Doppler study was performed which revealed an ejection fraction of 55-60%. Patient had 2 episodes of what appears to be polymorphic ventricular tachycardia, magnesium was replaced, and patient was given a bolus of amiodarone. Hemoglobin this morning 9.9, down from 12.8. Sodium 132, potassium 3.1, magnesium 1.7 this morning. Patient is somewhat confused this morning, answers questions appropriately however. Objective - Vital Signs Vital signs: Vital Signs Temp 96.8 F L 04/09/17 04:00 Pulse 62 04/09/17 04:00 Resp 18 04/09/17 04:00 BP 120/74 04/09/17 04:00 Pulse Ox 100 04/09/17 04:00 Intake & Output 04/08/17 04/09/17 04/09/17 18:59 06:59 18:59 Intake Total 180 Output Total 300 1275 200 Balance -300 -1275 -20 Weight 90.718 kg 89.9 kg 89.9 kg Intake: Oral 180 Output: Urine 300 1275 200 Other: Voiding Method Bedside Commode Urinal # Voids 1 # Bowel Movements 1 1 - Exam GENERAL EXAM: Patient is alert and oriented and doesn't appear to be in any acute distress HEENT: Normocephalic. Normal reaction of pupils, equal size, normal range of extraocular motion. No erythema or exudates in the throat. NECK: No masses, no nuchal rigidity. CHEST: No chest wall deformity. LUNGS: Equal air entry with no crackles or wheeze. HEART: S1 and S2 normal with no audible mumurs or gallops. Regular rhythm, femorals equal on both sides.. ABDOMEN: No hepatosplenomegaly, normal bowel sounds, no guarding or rigidity. SKIN: Has some abrasions and ulcerations on the legs. CENTRAL NERVOUS SYSTEM: No focal deficits. EXTREMITIES: There appears to swelling of the big toe on one of the zara - Labs CBC & Chem 7: 04/09/17 06:14 04/09/17 06:14 Labs: Abnormal Lab Results - Last 24 Hours (Table) 04/08/17 04/09/17 04/09/17 Range/Units 15:23 06:14 06:14 RBC 2.53 L (4.30-5.90) m/uL Hgb 9.9 L D (13.0-17.5) gm/dL Hct 27.3 L (39.0-53.0) % MCV 107.9 H (80.0-100.0) fL MCH 39.3 H (25.0-35.0) pg RDW 16.4 H (11.5-15.5) % Plt Count 57 L (150-450) k/uL Sodium 132 L (137-145) mmol/L Potassium 3.1 L (3.5-5.1) mmol/L Chloride 97 L (98-107) mmol/L Glucose 105 H (74-99) mg/dL Magnesium 1.4 L (1.6-2.3) mg/dL Assessment and Plan (1) Polymorphic ventricular tachycardia Status: Acute (2) Alcohol abuse Status: Acute (3) Hypertension Status: Acute (4) Hypomagnesemia Status: Acute (5) Multiple falls Status: Acute (6) Prolonged QT interval Status: Acute (7) Alcohol abuse Status: Acute (8) Cellulitis Status: Acute (9) PVD (peripheral vascular disease) Status: Acute Plan: From cardiology's perspective, we will continue to keep magnesium and potassium at appropriate levels, continue metoprolol tartrate 50 mg by mouth 3 times a day. Patient again is been educated regarding the importance of EtOH cessation. DNP note has been reviewed, I agree with a documented findings and plan of care. Patient was seen and examined.
[2017-04-09] MEDS ORDERED: Potassium Replacement Protocol 1 EACH MISC MISCELLANE PRN (12:58)
[2017-04-09] MEDS: MAGNESIUM SULFATE-D5W PMX 1 GM in DEXTROSE/WATER 1 100ML.BAG IVPB SCH ×2 (16:39→18:21)
[2017-04-09] MEDS: POTASSIUM CHLORIDE 10 MEQ, LIDOCAINE 2% INJ 10 MG in SODIUM CHLORIDE 0.9% 100 ML IV SCH ×2 (16:39→18:21)
[2017-04-09] MEDS: THIAMINE 100 MG TAB PO SCH ×2 (16:39→18:22)
[2017-04-09] MEDS: COLLAGENASE 250 UNIT/GM OINTMENT 30 GM TUBE TOPICAL SCH (19:58)
[2017-04-09] MEDS: AMIODARONE 450 MG in DEXTROSE 5% IN WATER 250 ML IV SCH ×4 (19:58→20:00)
[2017-04-09] MEDS: TAMSULOSIN 0.4 MG CAP.ER.24H PO SCH (21:25)
[2017-04-09] MEDS: risperiDONE 2 MG TAB PO SCH (21:25)
[2017-04-10] MEDS: LORazepam 2 MG/ML SYRINGE IV PRN (01:37)
[2017-04-10] MEDS: HYDROcodone/APAP 10-325MG 1 EACH TAB PO PRN ×4 (04:44→23:52)
[2017-04-10] MEDS: GABAPENTIN 100 MG CAP PO SCH ×3 (09:03→21:30)
[2017-04-10] MEDS: clonazePAM 1 MG TAB PO SCH ×3 (09:03→21:33)
[2017-04-10] MEDS: METOPROLOL TARTRATE 50 MG TAB PO SCH ×3 (09:03→21:30)
[2017-04-10] MEDS: FAMOTIDINE 20 MG TAB PO SCH ×2 (09:03→21:30)
[2017-04-10] MEDS: COLLAGENASE 250 UNIT/GM OINTMENT 30 GM TUBE TOPICAL SCH (09:04)
[2017-04-10] MEDS: ENOXAPARIN 40 MG/0.4 ML SYRINGE SQ SCH (09:04)
[2017-04-10] MEDS: risperiDONE 1 MG TAB PO SCH (09:04)
[2017-04-10] MEDS ORDERED: ONDANSETRON 4 MG/2 ML VIAL IVP PRN (09:18)
[2017-04-10 10:22] LABS: Anisocytosis Slight; Basophils % (A) 0 %; CH 39.4; CHCM 36.2; Eosinophils # (A) 0.1 k/uL (0-0.7); Eosinophils % (A) 2 %; HCT 29.1 % (39.0-53.0); HDW 2.98; HGB 10.2 gm/dL (13.0-17.5); Luc # (Auto) 0.11; Luc % (Auto) 2; Lymphocytes # (A) 0.7 k/uL (1.0-4.8); Lymphocytes % (A) 15 %; MCH 38.3 pg (25.0-35.0); MCHC 35.1 g/dL (31.0-37.0); MCV 109.3 fL (80.0-100.0); Macrocytosis Marked; Mean Platelet Volume 8.2; Monocytes # (A) 0.3 k/uL (0-1.0); Monocytes % (A) 6 %; Neutrophils # (A) 3.7 k/uL (1.3-7.7); Neutrophils % (A) 75 %; RBC 2.66 m/uL (4.30-5.90); WBC 4.9 k/uL (3.8-10.6); WBC (Perox) 4.89
[2017-04-10 10:29] LABS: Anion Gap 6 mmol/L; Blood Urea Nitrogen 9 mg/dL (9-20); Calcium 8.6 mg/dL (8.4-10.2); Carbon Dioxide 28 mmol/L (22-30); Chloride 101 mmol/L (98-107); Glucose 110 mg/dL (74-99); Non-African American GFR(MDRD) >60 (>60 ml/min/1.73 sqM); Potassium 3.2 mmol/L (3.5-5.1); Sodium 135 mmol/L (137-145)
[2017-04-10] MEDS: THIAMINE 100 MG TAB PO SCH ×2 (11:27→17:30)
--- NOTE | 2017-04-10 12:21 | P.PN ---
<Yancy Tatum - Last Filed: 04/10/17 15:50> Progress Note - Text DATE OF SERVICE: 04/10/2017 PRESENTING COMPLAINT: Falls INTERVAL HISTORY: This is 62-year-old patient who decided to stop smoking and stop alcohol use. Patient had been feeling weak and tired and rundown, felt dizzy and lightheaded when standing and fell. On arrival patient was found to have prolonged QT interval, low magnesium. 04/10/2017: Patient restless overnight, requiring sitter at the bedside. Patient is alert and oriented able to answer questions appropriately, but does appear pretty fidgety. Appetite good eating about 35% of his meals, continues to have diarrhea. Ambulatory to and from the bathroom with some assistance, a bit unsteady on his feet. REVIEW OF SYSTEMS: Done for constitutional ,cardiovascular, GI, pulmonary with relevant findings as above. CURRENT MEDICATIONS NORCO, KLONOPIN, SANTYL OINTMENT, LOVENOX, PEPCID, NEURONTIN, ATIVAN LOPRESSOR, RISPERIDONE, FLOMAX. PHYSICAL EXAM VITAL SIGNS: Temperature 97.0, pulse 62, respiratory rate 18, blood pressure 120/82, oxygen saturation 100% on room air. GENERAL APPEARANCE: Sitting on the bed, not in distress, Fidgety. EYES: Pupils equal. Conjunctiva normal. NECK: JVD not raised. Mass not palpable. RESPIRATORY: Respiratory effort normal. Lungs clear to auscultation. CARDIOVASCULAR: First and second sounds normal. No edema. ABDOMEN: Soft. Liver and spleen not palpable. No tenderness. No mass palpable. PSYCHIATRY: Alert and oriented x3. Mood and affect normal. DERMATOLOGIC: Wound on the left big toe currently covered with Kerlix. Arterial: DP/PT pulses 2/4, bilaterally INVESTIGATIONS: Hemoglobin 10.2, sodium 135, potassium 3.2, ASSESSMENT: -Prolonged QT interval secondary to severe hypomagnesemia -Chronic alcoholic hepatitis -Hyponatremia likely hypoosmolar from decreased salt intake and excessive water intake -Thrombocytopenia likely from alcoholism -Macrocytic anemia mild secondary to alcoholism -Possible bipolar disorder -Chronic peripheral neuropathy secondary to alcoholism, elements of pain -Multiple areas of bruising secondary to falls. -Possible COPD in a recent ex-smoker PLAN: Sitter remains at the bedside for impulsivity, patient safety. Continue to monitor for DTs. Continue Lopressor 50 mg 3 times a day. Left big toe wound should be managed medically with Santyl and dressing changes. Patient was counseled regarding cessation of smoking and alcohol use. Plan of care discussed with the patient at the bedside questions answered we'll continue to follow closely. CEMENT MIXER statement: Patient was seen and examined by nurse practitioner Yancy Tatum and all elements of the case discussed with attending Dr. Bruce <Damien Bruce - Last Filed: 04/10/17 16:55> Progress Note - Text Attending note. Date of service-04/09/2017 This patient was seen and examined by me . I reviewed the note of my nurse practitioner, Ms. Tatum. Discussed with her, additional findings as below. Patient admitted with prolonged QT interval and severe hypomagnesemia. Magnesium was replaced. Patient often due to polymorphic V. tach. Started on beta steven by cardiology. On examination: Lungs-decreased breath sounds, cardiovascular first seconds are normal Investigations: Hemoglobin 9.9, platelets 57 EKG shows polymorphic VT, potassium 3.1 Assessment and plan: Prolonged QT interval secondary to severe hypomagnesemia Polymorphic ventricular tachycardia Hypokalemia Patient is started on Lopressor. Care was discussed with the patient. Encouraged to be out of bed
--- NOTE | 2017-04-10 12:29 | P.PN ---
<Yancy Tatum - Last Filed: 04/10/17 20:05> Progress Note - Text DATE OF SERVICE: 04/09/2017 PRESENTING COMPLAINT: Falls INTERVAL HISTORY: This is 62-year-old patient On arrival patient was found to have prolonged QT interval, low magnesium. 04/09/2017: Patient sitting up in the bed able to answer questions, but does have a component of being restless. Tolerating his diet, requires some assistance to and from the bathroom as his gait is unsteady. Left foot bandaged. Echocardiogram completed, cardiology has seen the patient. Patient was found to have polymorphic ventricular tachycardia on the heart monitor. REVIEW OF SYSTEMS: Done for constitutional ,cardiovascular, GI, pulmonary with relevant findings as above. CURRENT MEDICATIONS NORCO, KLONOPIN, SANTYL OINTMENT, LOVENOX, PEPCID, NEURONTIN, ATIVAN LOPRESSOR, RISPERIDONE, FLOMAX. PHYSICAL EXAM VITAL SIGNS: Temperature 97.1, respiratory rate 18, blood pressure 120/75, oxygen saturation 100% on room air. GENERAL APPEARANCE: Lying in bed, not in distress, Fidgety. EYES: Pupils equal. Conjunctiva normal. NECK: JVD not raised. Mass not palpable. RESPIRATORY: Respiratory effort normal. Lungs clear to auscultation. CARDIOVASCULAR: First and second sounds normal. No edema. ABDOMEN: Soft. Liver and spleen not palpable. No tenderness. No mass palpable. PSYCHIATRY: Alert and oriented x3. Mood and affect normal. DERMATOLOGIC: Wound on the left big toe currently covered with Kerlix. Arterial: DP/PT pulses 2/4, bilaterally INVESTIGATIONS: Hemoglobin 9.9, platelet count 57, sodium 132, potassium 3.1, magnesium 1.7. ECHOCARDIOGRAM: Trace mild mitral regurgitation, mild tricuspid regurgitation, mild pulmonary hypertension, EF between 55 and 60%. EKG: Appears to be normal sinus rhythm, multiple PVCs, prolonged QT. ASSESSMENT: -Prolonged QT interval secondary to severe hypomagnesemia -Chronic alcoholic hepatitis -Hyponatremia likely hypoosmolar from decreased salt intake and excessive water intake -Thrombocytopenia likely from alcoholism -Macrocytic anemia mild secondary to alcoholism -Possible bipolar disorder -Chronic peripheral neuropathy secondary to alcoholism, elements of pain -Multiple areas of bruising secondary to falls. -Possible COPD in a recent ex-smoker -Left great toe wound likely due to peripheral neuropathy PLAN: We'll continue to monitor patient for possible alcohol withdrawal. Will await additional input from cardiology. Patient counseled regarding smoking and EtOH cessation. Plan of care was discussed with the patient the bedside QUESTIONS answered. PLASTIC WELDER statement: Patient was seen and examined by nurse practitioner Yancy Tatum and all elements of the case discussed with attending Dr. Bruce <Damien Bruce - Last Filed: 04/10/17 20:11> Progress Note - Text Attending note. Date of service-04/09/2017 This patient was seen and examined by me . I reviewed the note of my nurse practitioner, Ms. Tatum. Discussed with her, additional findings as below. Patient admitted with severe hypomagnesemia causing prolonged QT interval. Patient was also found to go into polymorphic VT for which she was put on beta steven On examination: Lungs decreased breath sounds, cardio vascular first seconds are normal Investigations: Potassium 9.9, platelets 57, potassium 3.1 Assessment and plan: Prolonged QT interval from low magnesium and no polymorphic V. tach Patient be started on beta steven. Follow with cardiology
[2017-04-10] MEDS: POTASSIUM CHLORIDE 10 MEQ, LIDOCAINE 2% INJ 10 MG in SODIUM CHLORIDE 0.9% 100 ML IVPB SCH ×2 (13:11→14:32)
--- NOTE | 2017-04-10 15:31 | P.PN ---
Subjective This is a 62-year-old gentleman with history of alcohol abuse, hypertension, hypercholesterolemia and also peripheral neuropathy has been drinking for several days and not eating properly. Apparently he was falling. He came to the emergency room because of recurrent falls. His EKG showed sinus bradycardia with PVCs with a prolonged QT interval. His admission was 0.7. Patient denied any chest pain, complains of mild shortness of breath. Cardiology consult is requested because of prolonged QT interval. Patient has had issues with prolonged QT interval in the past also. Since this morning showed a potassium 3.2 which is being supplemented. Recent echocardiogram done yesterday revealed an ejection fraction of 55-60%. On examination, patient continues to complain of feeling dizzy however denies feeling as if he'll fall at this time. He says he does feel quite a bit better than he did upon admission. Objective - Vital Signs Vital signs: Vital Signs Temp 96.5 F L 04/10/17 11:53 Pulse 64 04/10/17 11:55 Resp 16 04/10/17 11:55 BP 158/89 04/10/17 11:53 Pulse Ox 100 04/10/17 11:53 Intake & Output 04/09/17 04/10/17 04/10/17 18:59 06:59 18:59 Intake Total 620 220 Output Total 200 800 220 Balance 420 -800 0 Weight 89.9 kg 89.7 kg 89.7 kg Intake: Oral 620 220 Output: Urine 200 800 220 Other: Voiding Method Bedside Commode Bedside Commode Bedside Commode Urinal Urinal Urinal # Voids 1 2 1 # Bowel Movements 1 1 - Exam PHYSICAL EXAMINATION: HEENT: [Head is atraumatic, normocephalic. Pupils equal, round. Neck is supple. There is no elevated jugular venous pressure.] HEART EXAMINATION: [Heart sounds regular, S1 and S2 normal. No murmur or gallop heard.] CHEST EXAMINATION:[ Lungs are clear to auscultation and precussion. No chest wall tenderness is noted on palpation or with deep breathing.] ABDOMEN: [ Soft, nontender. Bowel sounds are heard. No organomegaly noted]. EXTREMITIES:[ 2+ peripheral pulses with no evidence of peripheral edema and no calf tenderness noted]. NEUROLOGIC [patient is awake, alert and oriented x3 with some confusion noted however patient does answer questions appropriately.] . - Labs CBC & Chem 7: 04/10/17 09:37 04/10/17 09:37 Labs: Abnormal Lab Results - Last 24 Hours (Table) 04/10/17 04/10/17 Range/Units 09:37 09:37 RBC 2.66 L (4.30-5.90) m/uL Hgb 10.2 L (13.0-17.5) gm/dL Hct 29.1 L (39.0-53.0) % MCV 109.3 H (80.0-100.0) fL MCH 38.3 H (25.0-35.0) pg RDW 17.0 H (11.5-15.5) % Plt Count 64 L (150-450) k/uL Lymphocytes # 0.7 L (1.0-4.8) k/uL Sodium 135 L (137-145) mmol/L Potassium 3.2 L (3.5-5.1) mmol/L Glucose 110 H (74-99) mg/dL Assessment and Plan Plan: Assessment and plan 1 polymorphic ventricular tachycardia #2 alcohol abuse #3 hypertension #4 hypomagnesemia #5 hypokalemia #6 multiple falls #7 prolonged QT interval #8 cellulitis #9 PVD Cardiology's perspective, we'll repeat her magnesium today. We'll start the patient on magnesium oxide 400 mg by mouth twice a day. Continue with potassium replacement. Continue metoprolol tartrate 50 mg by mouth 3 times a day. Continue to educate patient regarding the importance of EtOH cessation. Repeat EKG in the morning. Further recommendations to follow VOCATIONAL EDUCATION TEACHER note has been reviewed, I agree with a documented findings and plan of care. Patient was seen and examined.
--- NOTE | 2017-04-10 16:19 | P.PN ---
Subjective Principal diagnosis: Left great toe ulcer, peripheral arterial disease, peripheral neuropathy, hypertension, hyperlipidemia, alcohol abuse, nicotine dependence, GERD. This is 62-year-old gentleman who has recent complaints of not feeling well and has had multiple falls. He also has a chronic nonhealing ulcer to his left great toe. His past medical history of alcohol abuse and chronic nicotine dependence. He has multiple scabbed areas to his bilateral lower extremities and large ecchymotic areas to his bilateral upper extremities mainly to his right arm. He has been noncompliant with his wound care regimen and has not followed up as scheduled in the wound healing center. He is laying in bed with his left foot elevated higher than the level of his heart. He is in no acute distress. He denies complaints of pain at this time. Objective - Vital Signs Vital signs: Vital Signs Temp 96.5 F L 04/10/17 11:53 Pulse 64 04/10/17 11:55 Resp 16 04/10/17 11:55 BP 158/89 04/10/17 11:53 Pulse Ox 100 04/10/17 11:53 Intake & Output 04/09/17 04/10/17 04/10/17 18:59 06:59 18:59 Intake Total 620 220 Output Total 200 800 420 Balance 420 -800 -200 Weight 89.9 kg 89.7 kg 89.7 kg Intake: Oral 620 220 Output: Urine 200 800 420 Other: Voiding Method Bedside Commode Bedside Commode Bedside Commode Urinal Urinal Urinal # Voids 1 2 1 # Bowel Movements 1 1 - Constitutional General appearance: Present: cooperative, no acute distress - EENT Eyes: Present: normal appearance ENT: Present: hearing grossly normal - Neck Details: No JVD. - Respiratory Details: Few scattered rhonchi throughout, diminished bilateral bases. Respirations are symmetrical and unlabored. His oxygen saturations are 100% on room air. - Cardiovascular Details: Regular rhythm and rate, normal S1 and S2. Negative for S3, gallop or murmur. Remote telemetry showing normal sinus rhythm heart rate 62. No edema present. - Gastrointestinal Gastrointestinal Comment(s): Abdomen is soft, nondistended, nontender. Positive bowel sounds all 4 abdominal quadrants. Positive flatus. - Genitourinary Genitourinary Comment(s): Adequate urine output. - Integumentary Integumentary Comment(s): Ecchymotic areas over her right lower back, left shoulder and upper arm, right lower extremity over the knee and hayden area. Multiple abrasions and small wounds which are scabbed over. Left big toe ulceration, approximately 2 cm x 2 cm. Middle circular area looks black and dry, surrounded by red open skin without drainage. - Musculoskeletal Musculoskeletal Comment(s): Patient is nonweightbearing to his left foot. Musculoskeletal: Present: generalized weakness - Psychiatric Psychiatric Comment(s): Speech is normal. Psychiatric: Present: A&O x's 3, appropriate affect - Allied health notes Allied health notes reviewed: nursing - Labs CBC & Chem 7: 04/10/17 09:37 04/10/17 09:37 Labs: Abnormal Lab Results - Last 24 Hours (Table) 04/10/17 04/10/17 Range/Units 09:37 09:37 RBC 2.66 L (4.30-5.90) m/uL Hgb 10.2 L (13.0-17.5) gm/dL Hct 29.1 L (39.0-53.0) % MCV 109.3 H (80.0-100.0) fL MCH 38.3 H (25.0-35.0) pg RDW 17.0 H (11.5-15.5) % Plt Count 64 L (150-450) k/uL Lymphocytes # 0.7 L (1.0-4.8) k/uL Sodium 135 L (137-145) mmol/L Potassium 3.2 L (3.5-5.1) mmol/L Glucose 110 H (74-99) mg/dL Assessment and Plan (1) Alcohol abuse Status: Acute (2) Hypertension Status: Acute (3) Hypomagnesemia Status: Acute (4) Multiple falls Status: Acute (5) PVD (peripheral vascular disease) Status: Acute (6) Skin ulcer of left great toe Status: Acute Plan: 1. Continue offloading to left foot, physical therapy to work with patient with offloading. 2. Wound care completed to his left great toe, Santyl applied, covered with 4 x 4 gauze and secured with Kerlix wrap. 3. Follow-up in the wound healing center as scheduled. 4. Importance of smoking cessation and alcohol cessation was reviewed with the patient. 5. More recommendations as the patient progresses. Time with Patient: Greater than 30
[2017-04-10] MEDS: MAGNESIUM OXIDE 400 MG TAB PO SCH ×2 (17:30→21:29)
[2017-04-10] MEDS: risperiDONE 2 MG TAB PO SCH (21:29)
[2017-04-10] MEDS: TAMSULOSIN 0.4 MG CAP.ER.24H PO SCH (21:30)
[2017-04-11 06:31] LABS: Anion Gap 9 mmol/L; Blood Urea Nitrogen 10 mg/dL (9-20); Calcium 8.8 mg/dL (8.4-10.2); Carbon Dioxide 25 mmol/L (22-30); Chloride 103 mmol/L (98-107); Glucose 113 mg/dL (74-99); Non-African American GFR(MDRD) >60 (>60 ml/min/1.73 sqM); Potassium 3.3 mmol/L (3.5-5.1); Sodium 137 mmol/L (137-145)
[2017-04-11] MEDS: HYDROcodone/APAP 10-325MG 1 EACH TAB PO PRN ×3 (06:36→20:47)
[2017-04-11] MEDS: FAMOTIDINE 20 MG TAB PO SCH ×2 (07:50→20:48)
[2017-04-11] MEDS: ENOXAPARIN 40 MG/0.4 ML SYRINGE SQ SCH (07:50)
[2017-04-11] MEDS: clonazePAM 1 MG TAB PO SCH ×3 (07:50→20:47)
[2017-04-11] MEDS: COLLAGENASE 250 UNIT/GM OINTMENT 30 GM TUBE TOPICAL SCH (07:50)
[2017-04-11] MEDS: MAGNESIUM OXIDE 400 MG TAB PO SCH ×2 (07:50→20:48)
[2017-04-11] MEDS: risperiDONE 1 MG TAB PO SCH (07:51)
[2017-04-11] MEDS: METOPROLOL TARTRATE 50 MG TAB PO SCH ×3 (07:51→20:47)
[2017-04-11] MEDS: GABAPENTIN 100 MG CAP PO SCH ×3 (07:51→20:47)
[2017-04-11] MEDS: THIAMINE 100 MG TAB PO SCH ×2 (07:52→15:17)
[2017-04-11] MEDS: POTASSIUM CHLORIDE ER 20 MEQ TAB.ER PO SCH ×2 (09:00→15:17)
--- NOTE | 2017-04-11 10:29 | P.PN ---
Subjective Principal diagnosis: Hypomagnesemia his is a 62-year-old gentleman with history of alcohol abuse, hypertension, hypercholesterolemia and also peripheral neuropathy has been drinking for several days and not eating properly. Apparently he was falling. He came to the emergency room because of recurrent falls. His EKG showed sinus bradycardia with PVCs with a prolonged QT interval. His admission was 0.7. Patient denied any chest pain, complains of mild shortness of breath. Cardiology consult is requested because of prolonged QT interval. Patient has had issues with prolonged QT interval in the past also. We'll going correct the diminished level and repeat EKG tomorrow. We'll also get an echocardiogram. Further recommendation depend upon the critical course. Patient doesn't appear to be in acute distress at this time. 04/09/2017 Echocardiogram with Doppler study was performed which revealed an ejection fraction of 55-60%. Patient had 2 episodes of what appears to be polymorphic ventricular tachycardia, magnesium was replaced, and patient was given a bolus of amiodarone. Hemoglobin this morning 9.9, down from 12.8. Sodium 132, potassium 3.1, magnesium 1.7 this morning. Patient is somewhat confused this morning, answers questions appropriately however. 04/11/2017 Patient seen and examined this morning, much more alert and oriented today. Having occasional PVCs no runs of nonsustained VT. Potassium this morning is 3.3 and magnesium 1.5 which we will replace. Objective - Vital Signs Vital signs: Vital Signs Temp 98.6 F 04/11/17 08:00 Pulse 66 04/11/17 08:00 Resp 16 04/11/17 08:00 BP 166/92 04/11/17 08:00 Pulse Ox 99 04/11/17 08:00 Intake & Output 04/10/17 04/11/17 04/11/17 18:59 06:59 18:59 Intake Total 220 220 Output Total 420 1000 250 Balance -200 -780 -250 Weight 89.7 kg 93 kg Intake: Oral 220 220 Output: Urine 420 1000 250 Other: Voiding Method Bedside Commode Bedside Commode Urinal Urinal # Voids 1 1 # Bowel Movements 1 - Exam GENERAL EXAM: Patient is alert and oriented and doesn't appear to be in any acute distress HEENT: Normocephalic. Normal reaction of pupils, equal size, normal range of extraocular motion. No erythema or exudates in the throat. NECK: No masses, no nuchal rigidity. CHEST: No chest wall deformity. LUNGS: Equal air entry with no crackles or wheeze. HEART: S1 and S2 normal with no audible mumurs or gallops. Regular rhythm, femorals equal on both sides.. ABDOMEN: No hepatosplenomegaly, normal bowel sounds, no guarding or rigidity. SKIN: Has some abrasions and ulcerations on the legs. CENTRAL NERVOUS SYSTEM: No focal deficits. EXTREMITIES: There appears to swelling of the big toe on one of the zara - Labs CBC & Chem 7: 04/10/17 09:37 04/11/17 06:03 Labs: Abnormal Lab Results - Last 24 Hours (Table) 04/10/17 04/10/17 04/11/17 Range/Units 09:37 09:37 06:03 RBC 2.66 L (4.30-5.90) m/uL Hgb 10.2 L (13.0-17.5) gm/dL Hct 29.1 L (39.0-53.0) % MCV 109.3 H (80.0-100.0) fL MCH 38.3 H (25.0-35.0) pg RDW 17.0 H (11.5-15.5) % Plt Count 64 L (150-450) k/uL Lymphocytes # 0.7 L (1.0-4.8) k/uL Sodium 135 L (137-145) mmol/L Potassium 3.2 L 3.3 L (3.5-5.1) mmol/L Glucose 110 H 113 H (74-99) mg/dL Magnesium (1.6-2.3) mg/dL 04/11/17 Range/Units 06:03 RBC (4.30-5.90) m/uL Hgb (13.0-17.5) gm/dL Hct (39.0-53.0) % MCV (80.0-100.0) fL MCH (25.0-35.0) pg RDW (11.5-15.5) % Plt Count (150-450) k/uL Lymphocytes # (1.0-4.8) k/uL Sodium (137-145) mmol/L Potassium (3.5-5.1) mmol/L Glucose (74-99) mg/dL Magnesium 1.5 L (1.6-2.3) mg/dL Assessment and Plan (1) Polymorphic ventricular tachycardia Status: Acute (2) Alcohol abuse Status: Acute (3) Hypertension Status: Acute (4) Hypomagnesemia Status: Acute (5) Multiple falls Status: Acute (6) Prolonged QT interval Status: Acute (7) Alcohol abuse Status: Acute (8) Cellulitis Status: Acute (9) PVD (peripheral vascular disease) Status: Acute Plan: From cardiology's perspective, we will replace the patient's potassium and magnesium. Continue current dose of beta steven. Continued education regarding the importance of EtOH cessation. DNP note has been reviewed, I agree with a documented findings and plan of care. Patient was seen and examined.
--- NOTE | 2017-04-11 10:29 | PN ---
DATE OF SERVICE: 04/10/2017 PRESENTING COMPLAINT: Weak, tired. INTERVAL HISTORY: The patient admitted with severe hypomagnesemia, prolonged QT interval and also polymorphic VT. The patient is weak, tired, tolerating some diet. Was started on beta steven. Laying in bed. REVIEW OF SYSTEMS: CONSTITUTIONAL: None. CARDIOVASCULAR: None. GI: None. PULMONARY: Findings as above. Current medications are reviewed that include Lopressor 50 mg three times a day and Risperdal. On examination, temperature 96.5, pulse 64, respirations 16, blood pressure 150/ 89, pulse ox 100% on room air. GENERAL APPEARANCE: Laying in bed, tired appearing. EYES: Conjunctivae normal. NECK: JVP not raised. No masses palpable. RESPIRATORY EFFORT: ( ). LUNGS: Decreased breath sounds. CARDIOVASCULAR: First and second sounds normal. No edema. ABDOMEN: Soft, nontender. Liver and spleen not palpable. PSYCHIATRY: Awake, answering questions though a little bit lethargic. DERMATOLOGICAL: Bruising is present. INVESTIGATIONS: White count 4.9, hemoglobin 10.2, platelets 64, potassium 3.2. ASSESSMENT: 1. Polymorphic ventricular tachycardiac. 2. Prolonged QT interval secondary to severe hypomagnesemia. 3. Chronic alcoholic hepatitis. 4. Hyponatremia, likely hypo-osmolar from decreased oral intake, excessive water intake, improving. 5. Thrombocytopenia from chronic alcoholism. 6. Macrocytic anemia from alcoholism. 7. Bipolar disorder. 8. Chronic peripheral neuropathy secondary to alcoholism. 9. Multiple areas of bruising secondary to falls. 10. Chronic obstructive pulmonary disease. 11. Smoker. PLAN: Continue current medication and treatment plan. Care was discussed with the patient. Patient's 2D echo shows preserved EF. Follow. MTDD
--- NOTE | 2017-04-11 11:19 | P.PN ---
<Yancy Tatum - Last Filed: 04/11/17 11:43> Progress Note - Text DATE OF SERVICE: 04/11/2017 PRESENTING COMPLAINT: Falls INTERVAL HISTORY: This is 62-year-old patient who decided to stop smoking and stop alcohol use. Patient had been feeling weak and tired and rundown, felt dizzy and lightheaded when standing and fell. On arrival patient was found to have prolonged QT interval, polymorphic ventricular tachycardia. low magnesium, low potassium. 04/10/2017: Patient restless overnight, requiring sitter at the bedside. Patient is alert and oriented able to answer questions appropriately, but does appear pretty fidgety. Appetite good eating about 35% of his meals, continues to have diarrhea. Ambulatory to and from the bathroom with some assistance, a bit unsteady on his feet. 04/11/2017: Remains impulsive but less so today sitter at the bedside. Patient sitting up in bed, states his appetite is pretty low, doesn't like the taste of the food. BM today. Dr. Baker to see patient regarding left foot wound. Agreeable to work with physical therapy. REVIEW OF SYSTEMS: Done for constitutional ,cardiovascular, GI, pulmonary with relevant findings as above. CURRENT MEDICATIONS NORCO, KLONOPIN, SANTYL OINTMENT, LOVENOX, PEPCID, NEURONTIN, ATIVAN LOPRESSOR, RISPERIDONE, FLOMAX. PHYSICAL EXAM VITAL SIGNS: Temperature 98.6, pulse 66, respirations 16, blood pressure 166/92, oxygen saturation 99% on room air. GENERAL APPEARANCE: Lying in bed, not in distress, Fidgety. EYES: Pupils equal. Conjunctiva normal. NECK: JVD not raised. Mass not palpable. RESPIRATORY: Respiratory effort normal. Decreased breath sounds bilaterally CARDIOVASCULAR: First and second sounds normal. No edema. ABDOMEN: Soft. Liver and spleen not palpable. No tenderness. No mass palpable. PSYCHIATRY: Alert and oriented x3. Mood and affect normal. DERMATOLOGIC: Wound on the left big toe currently covered with Kerlix. Arterial: DP/PT pulses 2/4, bilaterally INTEGUMENT: Bruising present upper arms bilateral lower extremities. Scattered abrasions INVESTIGATIONS: Sodium 137, potassium 3.3, magnesium 1.5. ASSESSMENT: -Prolonged QT interval secondary to severe hypomagnesemia -Chronic alcoholic hepatitis -Hyponatremia likely hypoosmolar from decreased oral intake and excessive water intake improving -Thrombocytopenia likely from alcoholism -Macrocytic anemia secondary to alcoholism -Possible bipolar disorder -Chronic peripheral neuropathy secondary to alcoholism, -Multiple areas of bruising secondary to falls. - COPD in a recent ex-smoker -Hypokalemia likely due to decreased oral intake. PLAN: Sitter remains at the bedside for impulsivity, patient safety. Continue to monitor for DTs. Continue Lopressor 50 mg 3 times a day. Left great toe wound should be managed medically with Santyl and dressing changes. Patient was counseled regarding cessation of smoking and alcohol use. Plan of care discussed with the patient at the bedside questions answered we'll continue to follow closely. LEAD APPLICATION ARCHITECT statement: Patient was seen and examined by nurse practitioner Yancy Tatum and all elements of the case discussed with attending Dr. Bruce <Damien Bruce - Last Filed: 04/11/17 19:38> Progress Note - Text Attending note. Date of service-04/11/2017 This patient was seen and examined by me . I reviewed the note of my nurse practitioner, Ms. Tatum. Discussed with her, additional findings as below. Patient laying in bed. Tolerating his diet. Patient will need inpatient rehab because of poor functional control. Needs assistance with walking On examination: Blood pressure 166-92, pulse ox 99% room air, lungs decreased breath sounds, psych AO 3 Investigations: Potassium 3.3, magnesium 1.5 Assessment and plan: -Prolonged QT interval secondary to severe hypomagnesemia -Chronic alcoholic hepatitis -Hyponatremia likely hypoosmolar from decreased oral intake and excessive water intake improved -Thrombocytopenia likely from alcoholism -Macrocytic anemia secondary to alcoholism -Possible bipolar disorder -Chronic peripheral neuropathy secondary to alcoholism, -Multiple areas of bruising secondary to falls. - COPD in a recent ex-smoker -Hypokalemia likely due to decreased oral intake. -POLYMORPHIC ventricular tachycardia -Severe gait dysfunction requiring significant assistance Inpatient rehab therapy Plan for placement to inpatient rehab.
[2017-04-11] MEDS ORDERED: HALOPERIDOL LACTATE 5 MG/ML 1 ML VIAL IM PRN (18:36)
[2017-04-11] MEDS ORDERED: HALOPERIDOL LACTATE 5 MG/ML 1 ML VIAL IM ONE (18:41)
[2017-04-11] MEDS: TAMSULOSIN 0.4 MG CAP.ER.24H PO SCH (20:47)
[2017-04-11] MEDS: risperiDONE 2 MG TAB PO SCH (20:47)
[2017-04-11] MEDS: MELATONIN 3 MG TABLET PO SCH (20:47)
[2017-04-11] MEDS: LORazepam 2 MG/ML SYRINGE IV PRN ×2 (20:48→22:44)
[2017-04-11] MEDS ORDERED: HALOPERIDOL LACTATE 5 MG/ML 1 ML VIAL IVP PRN (23:26)
[2017-04-12 07:33] LABS: Anion Gap 7 mmol/L; Blood Urea Nitrogen 9 mg/dL (9-20); Calcium 8.8 mg/dL (8.4-10.2); Carbon Dioxide 26 mmol/L (22-30); Chloride 107 mmol/L (98-107); Glucose 92 mg/dL (74-99); Magnesium 1.6 mg/dL (1.6-2.3); Non-African American GFR(MDRD) >60 (>60 ml/min/1.73 sqM); Potassium 3.6 mmol/L (3.5-5.1); Sodium 140 mmol/L (137-145)
[2017-04-12] MEDS: clonazePAM 1 MG TAB PO SCH ×2 (08:19→15:40)
[2017-04-12] MEDS: COLLAGENASE 250 UNIT/GM OINTMENT 30 GM TUBE TOPICAL SCH (08:19)
[2017-04-12] MEDS: ENOXAPARIN 40 MG/0.4 ML SYRINGE SQ SCH (08:19)
[2017-04-12] MEDS: LORazepam 2 MG/ML SYRINGE IV PRN ×2 (08:19→15:41)
[2017-04-12] MEDS: METOPROLOL TARTRATE 50 MG TAB PO SCH ×3 (08:20→21:31)
[2017-04-12] MEDS: GABAPENTIN 100 MG CAP PO SCH ×3 (08:20→21:16)
[2017-04-12] MEDS: risperiDONE 1 MG TAB PO SCH (08:20)
[2017-04-12] MEDS: MAGNESIUM OXIDE 400 MG TAB PO SCH ×2 (08:20→21:16)
[2017-04-12] MEDS: THIAMINE 100 MG TAB PO SCH ×2 (08:20→15:41)
[2017-04-12] MEDS: FAMOTIDINE 20 MG TAB PO SCH ×2 (08:20→21:17)
--- NOTE | 2017-04-12 10:54 | P.PN ---
Subjective Principal diagnosis: Left great toe ulcer. Peripheral arterial disease. Peripheral neuropathy. Hypertension. Hyperlipidemia. Alcohol abuse. Tobacco dependence. Patient's currently laying in bed in no acute distress. Apparently he had episodes of confusion and combativeness last night. Currently he is calm and cooperative. Objective - Vital Signs Vital signs: Vital Signs Temp 97.3 F L 04/11/17 22:38 Pulse 64 04/12/17 00:00 Resp 19 04/12/17 00:00 BP 190/86 04/11/17 22:38 Pulse Ox 98 04/11/17 22:38 Intake & Output 04/11/17 04/12/17 04/12/17 18:59 06:59 18:59 Intake Total 180 480 Output Total 510 250 Balance -330 230 Intake: Oral 180 480 Output: Urine 510 250 Other: Voiding Method Bedside Commode Urinal # Voids 1 3 # Bowel Movements 1 - Constitutional General appearance: Present: cooperative, no acute distress - Respiratory Details: Lungs sounds diminished bilaterally. Respirations even, nonlabored. Currently on room air with oxygen saturation 98%. - Cardiovascular Details: S1, S2 present. Regular rate and rhythm. Sinus rhythm on telemetry. - Gastrointestinal Gastrointestinal Comment(s): Abdomen soft, nontender, nondistended. Active bowel sounds 4 quadrants. Tolerating diet. - Genitourinary Genitourinary Comment(s): Incontinent of urine, wearing adult briefs. - Integumentary Integumentary Comment(s): Multiple areas of ecchymosis as well as abrasions which are scabbed over. Left big toe ulcer clean, small amount serous drainage on dressing. Santyl dressing changed covered with 2 x 2 then wrapped with Kurlex. - Musculoskeletal Musculoskeletal: Present: strength equal bilaterally - Psychiatric Psychiatric: Present: A&O x's 3, appropriate affect - Allied health notes Allied health notes reviewed: nursing - Labs CBC & Chem 7: 04/10/17 09:37 04/12/17 06:53 Assessment and Plan (1) Alcohol abuse Status: Acute (2) Hypertension Status: Acute (3) Hypomagnesemia Status: Acute (4) Multiple falls Status: Acute (5) Prolonged QT interval Status: Acute (6) Skin ulcer of left great toe Status: Acute Plan: 1. Santyl dressing changes to continue daily, cover with 2 x 2, secured with Kerlix wrap. 2. Continue to offload left foot. Elevate left lower extremity. Physical therapy following 3. Smoking and alcohol cessation reinforced. 4. Follow-up in the wound care center at discharge as scheduled. 5. Medical management per primary care service. 6. Will see again if needed. Please call us with any questions. Time with Patient: Greater than 30
--- NOTE | 2017-04-12 11:50 | P.PN ---
<Yancy Tatum Margareth - Last Filed: 04/12/17 15:34> Progress Note - Text DATE OF SERVICE: 04/12/2017 PRESENTING COMPLAINT: Falls INTERVAL HISTORY: This is 62-year-old patient Patient had been feeling weak and tired and rundown , felt dizzy and lightheaded when standing and fell. On arrival patient was found to have prolonged QT interval, polymorphic ventricular tachycardia. low magnesium, low potassium. Has a great deal of difficulty ambulating, continues to require a sitter. 04/10/2017: Patient restless overnight, requiring sitter at the bedside. Patient is alert and oriented able to answer questions appropriately, but does appear pretty fidgety. Appetite good eating about 35% of his meals, continues to have diarrhea. Ambulatory to and from the bathroom with some assistance, a bit unsteady on his feet. 04/11/2017: Remains impulsive but less so today sitter at the bedside. Patient sitting up in bed, states his appetite is pretty low, doesn't like the taste of the food. BM today. Dr. Baker to see patient regarding left foot wound. Agreeable to work with physical therapy. 04/12/2017: Yesterday, beginning approximately around 6 PM patient became delirious, confused, more so than in previous days, difficult to direct. Haldol was given , as well as Ativan which seemed to make his symptoms worse. Received a second call about 9 PM with the same complaints with patient being very delirious, undirectable, patient was given an additional dose of Haldol. Patient does not remember any of these episodes. This morning, calm cooperative, complains of having lots of bad dreams, not sleeping well. Psych consult placed to assist in evaluating patient condition as well as reviewing psychiatric meds. Appetite fair eating between 50 and 75% of his meals, very unsteady on his feet requiring assistance, does not have good control over his bowels, last BM yesterday. Cardiac rhythm remains in 2:1 second degree AV block. REVIEW OF SYSTEMS: Done for constitutional ,cardiovascular, GI, pulmonary with relevant findings as above. CURRENT MEDICATIONS NORCO, KLONOPIN, SANTYL OINTMENT, LOVENOX, PEPCID, NEURONTIN, ATIVAN LOPRESSOR, RISPERIDONE, FLOMAX, Haldol PHYSICAL EXAM VITAL SIGNS: Temperature 97.2, pulse 72, respiratory rate 16, blood pressure 136/72, oxygen saturation 93% on room air. GENERAL APPEARANCE: Lying in bed, not in distress, Fidgety. EYES: Pupils equal. Conjunctiva normal. NECK: JVD not raised. Mass not palpable. RESPIRATORY: Respiratory effort normal. Decreased breath sounds bilaterally CARDIOVASCULAR: First and second sounds normal. No edema. ABDOMEN: Soft. Liver and spleen not palpable. No tenderness. No mass palpable. PSYCHIATRY: Alert and oriented x3. Mood and affect normal. DERMATOLOGIC: Wound on the left big toe currently covered with Kerlix. Arterial: DP/PT pulses 2/4, bilaterally INTEGUMENT: Bruising present upper arms bilateral lower extremities. Scattered abrasions INVESTIGATIONS: Sodium 140, potassium 3.6, magnesium 1.6, ammonia 17. ASSESSMENT: -Prolonged QT interval secondary to severe hypomagnesemia -Chronic alcoholic hepatitis -Hyponatremia likely hypoosmolar from decreased oral intake and excessive water intake improving -Thrombocytopenia likely from alcoholism -Macrocytic anemia secondary to alcoholism -Possible bipolar disorder -Chronic peripheral neuropathy secondary to alcoholism, -Multiple areas of bruising secondary to falls. - COPD in a recent ex-smoker -Hypokalemia likely due to decreased oral intake. -Polymorphic ventricular tachycardia -Severe gait dysfunction requiring significant assistance, inpatient rehab therapy -Acute delirium likely due to to alcoholic encephalopathy PLAN: Continue Lopressor 50 mg 3 times a day. Rhythm strip remains in 2:1 second degree AV block, cardiology following. Left great toe wound should be managed medically with Santyl and dressing changes. Offload left foot, elevate left lower extremity, continue to work with physical therapy. Patient should follow- up in the wound care center at discharged for the foot wound. Await input from psychiatry. Patient was counseled regarding cessation of smoking and alcohol use. Awaiting placement for subacute rehab for gait training and strengthening. Plan of care discussed with the patient at the bedside questions answered we'll continue to follow closely. CHUTE BUILDER statement: Patient was seen and examined by nurse practitioner Yancy Tatum and all elements of the case discussed with attending Dr. Bruce <Damien Bruce - Last Filed: 04/12/17 17:08> Progress Note - Text Attending note. Date of service-04/22/2017 This patient was seen and examined by me . I reviewed the note of my nurse practitioner, Ms. Tatum. Discussed with her, additional findings as below. Patient became agitated and confused last night. Given dose of Haldol. Much more sober this morning. Seen by psychiatry. Who recommended to cut back on his dose of Klonopin. On examination: Sitting up, tired appearing awake answering questions. Lungs have decreased breath sounds. Investigations: Potassium 3.6, magnesium 1.6 Assessment and plan: Acute delirium, multifactorial. As per the psychiatrist, and cut back the Klonopin to 0.75 mg 3 times a day. Looking for patient to go down to rehab tomorrow.
[2017-04-12] MEDS ORDERED: POTASSIUM CHLORIDE ER 20 MEQ TAB.ER PO STA (13:16)
--- NOTE | 2017-04-12 13:22 | P.PN ---
Subjective Principal diagnosis: Cardiac arrhythmia This is a pleasant 62-year-old gentleman with history of alcohol abuse who was admitted to the hospital with recurrent falls and was diagnosed was prolonged QT interval. His potassium was extremely low when he presented to the hospital. On follow-up with him today he seems to be doing good. The potassium is marginally low. The magnesium is within normal limits. Objective - Vital Signs Vital signs: Vital Signs Temp 97.2 F L 04/12/17 09:00 Pulse 72 04/12/17 09:00 Resp 16 04/12/17 09:00 BP 136/72 04/12/17 09:00 Pulse Ox 93 L 04/12/17 09:00 Intake & Output 04/11/17 04/12/17 04/12/17 18:59 06:59 18:59 Intake Total 180 480 Output Total 510 250 Balance -330 230 Intake: Oral 180 480 Output: Urine 510 250 Other: Voiding Method Bedside Commode Urinal # Voids 1 3 # Bowel Movements 1 - Constitutional General appearance: Present: no acute distress - Respiratory Respiratory: bilateral: CTA - Cardiovascular Rhythm: regular - Labs CBC & Chem 7: 04/10/17 09:37 04/12/17 06:53 Assessment and Plan Plan: I am going to replace the potassium and continue monitoring the electrolytes. Continue the current medical treatment. Continue following up with the patient.
[2017-04-12] MEDS: HYDROcodone/APAP 10-325MG 1 EACH TAB PO PRN ×2 (15:40→21:13)
--- NOTE | 2017-04-12 16:53 | P.CN ---
Psychiatric Consult - . Consult date: 04/12/17 Consult:: 04/12/17 16:35 Identification and Reason for Consult: Patient is a 62-year-old male who is admitted after he quit both alcohol and tobacco and and reported he was passing out. Consult was requested for recommendations for medications. Patient's chart was reviewed and he was seen alone there was no family members present History of Present Illness: Patient states that he was at home in his apartment and he decided to quit drinking and so stopped 3 days prior to admission and quit tobacco one week prior to admission. He reports that he had been feeling well at home and had no complaints. Patient came to the hospital because he was passing out. Patient states that he lives alone and uses a wheelchair and a walker to get around at home. He states that he has had a visiting nurse one time a week and also has Meals on Wheels. He reports his friends assist him with his laundry and cleaning. Patient currently reports that he is not feeling depressed and no suicidal ideation, not feeling anxious and is feeling pretty well. Patient does report that he has been treated since the age of 45 for depression with suicidal ideation. He states he was also having paranoid ideation in the past along with auditory hallucinations. Patient could not give greater detail about his symptoms in the past. He states that he was a client of [facility] until a year ago. He reports that he was taking Risperdal, Klonopin, Celexa and trazodone and these were continued by his primary care doctor. Patient reports he has not been taking the Risperdal in quite some time and was unable to tell me why but states that he continued on his Klonopin 1 mg 3 times a day which she states was given for anxiety, Celexa 40 mg a day and trazodone 100 mg at bedtime. Patient did not endorse any periods of charisse in the past but did endorse episodes of depression in the past with suicidal thoughts and he reports no suicide attempts in the past. He states he had paranoid ideation but was unable to elaborate. Patient reports that he heard voices in the past but again was unable to elaborate. Past Psychiatric History: Patient denies any inpatient psychiatric care and states that his symptoms began when he was about [age] years of age and he was seen as an outpatient at [facility] until one year ago and states he was also a client at [facility]. Patient was unable to tell me what prior meds he was on. 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 Patient reports he has had 2 a half toes amputated on his right foot and states that he has had multiple infections of his feet and currently has an issue with his left foot. Current Medications Hydrocodone Bitart/Acetaminophen ([place] 10) 1 each PO Q6H PRN PRN Reason: Pain 1-5 Last Admin: 04/11/17 09:03 Dose: 1 each Hydrocodone Bitart/Acetaminophen ([place] 10) 2 each PO Q6H PRN PRN Reason: Pain 6-10 Last Admin: 04/12/17 15:40 Dose: 2 each Clonazepam (Klonopin) 1 mg PO TID [facility] Last Admin: 04/12/17 15:40 Dose: 1 mg Collagenase (Santyl) 1 applic TOPICAL DAILY [facility] Last Admin: 04/12/17 08:19 Dose: 1 applic Enoxaparin Sodium (Lovenox) 40 mg SQ DAILY [facility] Last Admin: 04/12/17 08:19 Dose: 40 mg Famotidine (Pepcid) 20 mg PO BID [facility] Last Admin: 04/12/17 08:20 Dose: 20 mg Gabapentin (Neurontin) 100 mg PO TID [facility] Last Admin: 04/12/17 15:41 Dose: 100 mg Haloperidol Lactate (Haldol) 2 mg IVP Q6HR PRN PRN Reason: Agitation or Acute Psychosis Lorazepam (Ativan) 1 mg IV Q2HR PRN PRN Reason: CIWA 8 or 9 Last Admin: 04/12/17 15:41 Dose: 1 mg Lorazepam (Ativan) 1 mg IV Q1HR PRN PRN Reason: CIWA 10 to 15 Last Admin: 04/10/17 01:37 Dose: 1 mg Lorazepam (Ativan) 2 mg IV Q10M PRN PRN Reason: CIWA 16 or higher Last Admin: 04/11/17 18:18 Dose: 2 mg Magnesium Oxide (Mag-Ox) 400 mg PO BID [facility] Last Admin: 04/12/17 08:20 Dose: 400 mg Melatonin (Melatonin) 3 mg PO HS [facility] Last Admin: 04/11/17 20:47 Dose: 3 mg Metoprolol Tartrate (Lopressor) 50 mg PO TID [facility] Last Admin: 04/12/17 15:41 Dose: 50 mg Miscellaneous Information (Potassium Per Protocol) 1 each MISCELLANE DAILY PRN ; Protocol PRN Reason: Per Protocol Ondansetron HCl (Zofran) 4 mg IVP Q6HR PRN PRN Reason: Nausea And Vomiting Risperidone (Risperdal) 1 mg PO DAILY [facility] Last Admin: 04/12/17 08:20 Dose: 1 mg Risperidone (Risperdal) 2 mg PO [facility] Last Admin: 04/11/17 20:47 Dose: 2 mg Tamsulosin HCl (Flomax) 0.4 mg PO [facility] Last Admin: 04/11/17 20:47 Dose: 0.4 mg Thiamine HCl (Vitamin B-1) 100 mg PO BID@1200,1700 [facility] Last Admin: 04/12/17 15:41 Dose: 100 mg Family History: Patient states that there is alcohol use disorder on both sides of his family and states that there was depression on his father's side of the family. He reports no and has completed a suicide. Social History: Patient was born to parents and states that his father was in the [employer] and they moved around a lot while he was growing up. He states his father was killed in a motor vehicle accident when he was 16. Patient states he is the oldest of 6 and that all 5 of his siblings are alive. His mother is . 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 He reports he retired due to disability from his neuropathy about 10 years ago. He states he has never been and has no children. He reports no history of abuse. Patient lives alone in his own apartment and states that he has Meals on Wheels and also friends come to assist him with chores. Patient has no minibus driver's license. Substance Use History: She states he began using alcohol the age of 19 and at his heaviest was drinking a fifth and a half of vodka a day and the last time he is drinking this heavily was one year ago. He reports over the last year he' s been drinking a pint a day of vodka and quit 3 days prior to admission. Patient reports that he used marijuana daily for a number of years and quit 1 year ago. He used crack cocaine 15 years ago. Patient quit smoking tobacco about 1 week prior to his admission. Legal History: Patient reports 4 DUIs in the past and has no minibus driver's license he states his last DUI was 40 years ago Mental Status:Appearance/Attitude: Patient is slightly disheveled in a hospital gown and is in no acute distress and he was cooperative and made good eye contact. Behavior: He exhibited no psychomotor agitation or retardation, no tremors were noted and the patient was not perspiring. Speech/Language: Patient's speech was spontaneous and of normal volume and rhythm and he was coherent. Thought Process: Patient was goal-directed there is no evidence of loose associations or flight of ideas. Thought Content: Patient denied any current auditory or visual hallucinations and states he is not having any paranoid or delusional ideation. Patient reports that he is feeling better and states that he does get confused at times but could not elaborate on this. Patient did not have any evidence of thought blocking, denied any thought insertion or thought broadcasting. Suicidal/Homicidal Ideation: Patient denied any current suicidal or homicidal ideation. Sensorium/Cognition: She was alert and oriented to person, place, and time. Patient was able to spell the word world forwards and backwards he was able to do serial sevens for 5 subtractions, he was able to repeat 3 items immediately and recalled 2 dissimilar items after 5 minutes. Patient reported that he has in the past gotten lost. Mood/Affect: Patient's mood was pleasant and his affect was appropriate. Insight/Judgement: Patient's insight and judgment are fair Assessment: Patient is currently admitted and is being treated for falls, and a low potassium as well as alcohol withdrawal. Patient is currently not having any psychotic symptoms and is not reporting that he is feeling depressed. Patient states that he does get confused at times but was unable to further elaborate on this. When I spoke to the nurse taking care of the patient he stated that the patient to become agitated yesterday and required Haldol. Patient is currently receiving Risperdal at his prior dose as well as Klonopin at his prior dose. Patient had only one concern today and that was that he was not sleeping well. Diagnosis: Alcohol use disorder, severe; alcohol withdrawal, history of depression with psychotic features Plan: Patient is currently taking the Risperdal at his prior dose of 1 mg in the morning and 2 mg at night and there is no evidence of a psychotic process currently, as the patient came in and had some confusion it is unclear to me if he had psychotic symptoms prior to his admission. Patient reports that he had not been taking his Risperdal for some time prior to his admission. Patient was also on Celexa but is not reporting any symptoms of depression and so would not restart this at this time. I would recommend that the patient be slowly tapered off of Klonopin as he has a history of alcohol dependence, and this certainly will not improve his memory. This would need to be accomplished with a slow decrease by 25% reduction in dose every 5 days, it should be accomplished as an outpatient. Should the patient continued to complain of sleep difficulties trazodone could be restarted at 50 mg. Patient's confusion and agitation may be related to his delirium and should improve as the patient clears from his alcohol withdrawal. At this time would continue the Risperdal at the current dose. Upon discharge patient should be advised to avoid any alcohol, should be referred for outpatient psychiatric care to address his Klonopin as well as to evaluate his need for Risperdal. 04/12/17 16:46
[2017-04-12] MEDS: clonazePAM 0.5 MG TAB PO SCH (21:14)
[2017-04-12] MEDS: risperiDONE 2 MG TAB PO SCH (21:16)
[2017-04-12] MEDS: TAMSULOSIN 0.4 MG CAP.ER.24H PO SCH (21:16)
[2017-04-12] MEDS: MELATONIN 3 MG TABLET PO SCH (21:17)
[2017-04-13] MEDS: LORazepam 2 MG/ML SYRINGE IV PRN ×2 (00:28→04:44)
[2017-04-13] MEDS: HYDROcodone/APAP 10-325MG 1 EACH TAB PO PRN ×4 (03:14→21:22)
[2017-04-13] MEDS: ENOXAPARIN 40 MG/0.4 ML SYRINGE SQ SCH (07:59)
[2017-04-13] MEDS: FAMOTIDINE 20 MG TAB PO SCH ×2 (07:59→20:31)
[2017-04-13] MEDS: MAGNESIUM OXIDE 400 MG TAB PO SCH ×2 (07:59→20:30)
[2017-04-13] MEDS: METOPROLOL TARTRATE 50 MG TAB PO SCH ×3 (08:00→21:26)
[2017-04-13] MEDS: clonazePAM 0.5 MG TAB PO SCH ×3 (08:00→21:20)
[2017-04-13] MEDS: risperiDONE 1 MG TAB PO SCH (08:00)
[2017-04-13] MEDS: COLLAGENASE 250 UNIT/GM OINTMENT 30 GM TUBE TOPICAL SCH (08:01)
[2017-04-13 09:12] LABS: Anion Gap 7 mmol/L; Blood Urea Nitrogen 11 mg/dL (9-20); Calcium 8.5 mg/dL (8.4-10.2); Carbon Dioxide 26 mmol/L (22-30); Chloride 103 mmol/L (98-107); Glucose 97 mg/dL (74-99); Non-African American GFR(MDRD) >60 (>60 ml/min/1.73 sqM); Potassium 3.6 mmol/L (3.5-5.1); Sodium 136 mmol/L (137-145)
[2017-04-13] MEDS: GABAPENTIN 100 MG CAP PO SCH ×3 (09:31→21:24)
[2017-04-13] MEDS: THIAMINE 100 MG TAB PO SCH ×2 (12:46→17:58)
[2017-04-13 15:07] VITALS: BMI 25.6
--- NOTE | 2017-04-13 16:15 | P.DS ---
Providers Date of admission: 04/08/17 11:22 Expected date of discharge: 04/13/17 Attending physician: Damien Bruce Consults: 04/08/17 11:22 Consult Physician Urgent Consulting Provider: [facility] Consult Reason/Comments: Prolonged QT, hypomagnesemia Do you want consulting provider notified?: Yes 04/08/17 17:51 Consult Physician Routine Consulting Provider: Keith Baker Consult Reason/Comments: left foot ulcer Do you want consulting provider notified?: Yes 04/11/17 23:29 Consult Physician Routine Consulting Provider: Psychiatry - [facility] Consult Reason/Comments: assessment for recommendations for medications, and management Do you want consulting provider notified?: Yes, Notify in am [facility] Course: Final diagnoses: -Prolonged QT interval secondary to severe hypomagnesemia, present on admission -Chronic alcoholic hepatitis -Hyponatremia likely hypoosmolar from decreased oral intake and excessive water intake improving -Thrombocytopenia likely from alcoholism -Macrocytic anemia secondary to alcoholism -Possible bipolar disorder -Chronic peripheral neuropathy secondary to alcoholism, -Multiple areas of bruising secondary to falls. - COPD in a recent ex-smoker -Hypokalemia likely due to decreased oral intake. -Polymorphic ventricular tachycardia -Severe gait dysfunction requiring significant assistance, inpatient rehab therapy -Acute delirium likely due to to alcoholic encephalopathy -Left big toe wound on the plantar is aspect, superficial Hospital course: This patient is a long-standing alcoholic presented with falls not feeling well. Weak and tired. Patient's order prolonged QT interval along with severe hypomagnesemia. Magnesium was aggressively replaced. Patient also polymorphic V. tach. Beta blockers were added. Patient also has a left big toe wound seen by Dr. Baker who follows the patient. Patient also seen by the psychiatrist who is recommended to cut back on patient's Klonopin by 25% every 5 days until discontinued. Patient is unsteady on his feet has needs rehab. Patient eating better. Patient's 2-D echo showed preserved LV function EF 55-60% Physical exam: Lungs slight decreased breath sounds. Psych answering questions. The bit tired. Skin diffuse bruising. Consultation: Dr. Baker for restless surgery Dr. Chamorro from cardiology Disposition: [facility] Plan - Discharge Summary New Discharge Prescriptions: New clonazePAM [KlonoPIN] 0.75 mg PO TID tab Collagenase [Santyl] 1 applic TOPICAL DAILY #1 tube HYDROcodone/APAP 10-325MG [[place] 10-325] 2 each PO Q6H PRN #10 tab PRN Reason: Pain 6-10 HYDROcodone/APAP 10-325MG [[place] 10-325] 1 each PO Q6H PRN #10 tab PRN Reason: Pain 1-5 Magnesium Oxide [Mag-Ox] 400 mg PO BID tab risperiDONE [RisperDAL] 2 mg PO HS tab Thiamine [Vitamin B-1] 100 mg PO BID@1200,1700 tab risperiDONE [RisperDAL] 1 mg PO DAILY tab traZODone HCL 100 mg PO HS #1 tablet Continue Ranitidine HCl [Zantac] 150 mg PO BID Metoprolol Tartrate [Lopressor] 50 mg PO TID #90 tab Gabapentin [Neurontin] 100 mg PO TID Tamsulosin HCl [Flomax] 0.4 mg PO HS Discontinued traZODone HCL [Desyrel] 100 mg PO HS clonazePAM [KlonoPIN] 1 mg PO TID Citalopram Hydrobromide [CeleXA] 40 mg PO HS HYDROcodone/APAP 10-325MG [[place] 10-325] 1 - 2 tab PO Q6H PRN PRN Reason: Pain risperiDONE [RisperDAL] 1 mg PO DAILY risperiDONE [RisperDAL] 2 mg PO HS Discharge Medication List Ranitidine HCl [Zantac] 150 mg PO BID 03/24/14 [History] Metoprolol Tartrate [Lopressor] 50 mg PO TID #90 tab 10/12/16 [Rx] Gabapentin [Neurontin] 100 mg PO TID 03/26/17 [History] Tamsulosin HCl [Flomax] 0.4 mg PO HS 03/26/17 [History] Collagenase [Santyl] 1 applic TOPICAL DAILY #1 tube 04/13/17 [Rx] HYDROcodone/APAP 10-325MG [[place] 10-325] 1 each PO Q6H PRN #10 tab 04/13/17 [Rx] HYDROcodone/APAP 10-325MG [[place] 10-325] 2 each PO Q6H PRN #10 tab 04/13/17 [Rx] Magnesium Oxide [Mag-Ox] 400 mg PO BID tab 04/13/17 [Rx] Thiamine [Vitamin B-1] 100 mg PO BID@1200,1700 tab 04/13/17 [Rx] clonazePAM [KlonoPIN] 0.75 mg PO TID tab 04/13/17 [Rx] risperiDONE [RisperDAL] 1 mg PO DAILY tab 04/13/17 [Rx] risperiDONE [RisperDAL] 2 mg PO HS tab 04/13/17 [Rx] traZODone HCL 100 mg PO HS #1 tablet 04/13/17 [Rx] Follow up Appointment(s)/Referral(s): Demetrio Edwards DO [STAFF PHYSICIAN] - 04/14/17 Keith Baker DO [Doctor of Osteopathic Medicine] - 04/15/17 2:00 pm (Follow- up the [facility].) Remington Mustafa MD [Primary Care Provider] - As Needed Activity/Diet/Wound Care/Special Instructions: regular diet Patient needs to be titrated off Klonopin in the out patient setting. Suggested rate is 25 % reduction every 5 days. KLONOPIN to be tapered by 25% every 5 days till gone Discharge Disposition: TRANSFER TO SNF/ECF
[2017-04-13] MEDS: amLODIPine 5 MG TAB PO SCH (17:57)
[2017-04-13] MEDS: MELATONIN 3 MG TABLET PO SCH (20:30)
[2017-04-13] MEDS: TAMSULOSIN 0.4 MG CAP.ER.24H PO SCH (20:31)
[2017-04-13] MEDS: risperiDONE 2 MG TAB PO SCH (21:22)
[2017-04-14 08:02] VITALS: BP 160/63; PULSE 77; RESP 18; TEMP 98
[2017-04-14] MEDS: ENOXAPARIN 40 MG/0.4 ML SYRINGE SQ SCH (08:04)
[2017-04-14] MEDS: GABAPENTIN 100 MG CAP PO SCH (08:05)
[2017-04-14] MEDS: FAMOTIDINE 20 MG TAB PO SCH (08:05)
[2017-04-14] MEDS: clonazePAM 0.5 MG TAB PO SCH (08:05)
[2017-04-14] MEDS: HYDROcodone/APAP 10-325MG 1 EACH TAB PO PRN (08:05)
[2017-04-14] MEDS: amLODIPine 5 MG TAB PO SCH (08:06)
[2017-04-14] MEDS: METOPROLOL TARTRATE 50 MG TAB PO SCH (08:06)
[2017-04-14] MEDS: COLLAGENASE 250 UNIT/GM OINTMENT 30 GM TUBE TOPICAL SCH (08:06)
[2017-04-14] MEDS: MAGNESIUM OXIDE 400 MG TAB PO SCH (08:06)
[2017-04-14] MEDS: risperiDONE 1 MG TAB PO SCH (08:06)
[2017-04-14] MEDS: THIAMINE 100 MG TAB PO SCH (12:29)
== END 2017-04-14 13:48 | DRG 897 ==
LOC: EC 08:54 → 6SEL 11:22 → 4MS4W 04-12 17:02
PROVIDERS: ADMIT Hospitalist; ATTEND Hospitalist
PROC: HZ2ZZZZ Detoxification Services for Substance Abuse Treatment (ICD-10-PCS; principal; 2017-04-08)
DX: F10.231 Alcohol dependence with withdrawal delirium (principal); I47.2 Ventricular tachycardia; D69.59 Other secondary thrombocytopenia; G31.2 Degeneration of nervous system due to alcohol; I44.1 Atrioventricular block, second degree; F10.29 Alcohol dependence with unspecified alcohol-induced disorder; E87.1 Hypo-osmolality and hyponatremia; L03.90 Cellulitis, unspecified; E83.42 Hypomagnesemia; I27.2 Other secondary pulmonary hypertension; G62.1 Alcoholic polyneuropathy; K70.10 Alcoholic hepatitis without ascites; I45.81 Long QT syndrome; I36.1 Nonrheumatic tricuspid (valve) insufficiency; J44.9 Chronic obstructive pulmonary disease, unspecified; E87.6 Hypokalemia; F31.9 Bipolar disorder, unspecified; D53.9 Nutritional anemia, unspecified; E78.5 Hyperlipidemia, unspecified; K21.9 Gastro-esophageal reflux disease without esophagitis; I73.9 Peripheral vascular disease, unspecified; I10 Essential (primary) hypertension; E78.00 Pure hypercholesterolemia, unspecified; F90.9 Attention-deficit hyperactivity disorder, unspecified type; I49.3 Ventricular premature depolarization; L40.9 Psoriasis, unspecified; R53.1 Weakness; K52.9 Noninfective gastroenteritis and colitis, unspecified; F41.9 Anxiety disorder, unspecified; F40.240 Claustrophobia; R26.9 Unspecified abnormalities of gait and mobility; T43.596A Underdosing of other antipsychotics and neuroleptics, initial encounter; L97.529 Non-pressure chronic ulcer of other part of left foot with unspecified severity; S80.812A Abrasion, left lower leg, initial encounter; S80.811A Abrasion, right lower leg, initial encounter; S09.90XA Unspecified injury of head, initial encounter; S69.91XA Unspecified injury of right wrist, hand and finger(s), initial encounter; S69.92XA Unspecified injury of left wrist, hand and finger(s), initial encounter; S80.01XA Contusion of right knee, initial encounter; S40.012A Contusion of left shoulder, initial encounter; S30.0XXA Contusion of lower back and pelvis, initial encounter; S40.022A Contusion of left upper arm, initial encounter; S40.021A Contusion of right upper arm, initial encounter; R29.6 Repeated falls; R32 Unspecified urinary incontinence; Z71.3 Dietary counseling and surveillance; Z91.19 Patient's noncompliance with other medical treatment and regimen; Z83.3 Family history of diabetes mellitus; Z87.11 Personal history of peptic ulcer disease; Z82.49 Family history of ischemic heart disease and other diseases of the circulatory system; Z79.899 Other long term (current) drug therapy; Z82.3 Family history of stroke; Z71.6 Tobacco abuse counseling; Z81.8 Family history of other mental and behavioral disorders; Z91.81 History of falling; Z88.0 Allergy status to penicillin; Z81.1 Family history of alcohol abuse and dependence; Z79.891 Long term (current) use of opiate analgesic; Z87.01 Personal history of pneumonia (recurrent); Z86.19 Personal history of other infectious and parasitic diseases; Z86.14 Personal history of Methicillin resistant Staphylococcus aureus infection; Z89.421 Acquired absence of other right toe(s); Z87.891 Personal history of nicotine dependence; W19.XXXA Unspecified fall, initial encounter; Y90.0 Blood alcohol level of less than 20 mg/100 ml
CPT/HCPCS: 36415; 70450; 71020; 80048; 80053; 80320; 82140; 82550; 82553; 83735; 84484; 85025; 85610; 85730; 87324; 93005; 93306; 96365; 96366; 96368; 96372; 96375; 96376; 99285

== ENCOUNTER → 2017-05-06 | Outpatient (CLI) | payer MEDICARE ==
--- NOTE | 2017-05-13 10:22 | P.ARTDOP ---
Arterial Doppler LOWER EXTREMITY ARTERIAL DOPPLER: DATE OF SERVICE: 05/06/2017 Reason for study: Ulcer left great toe. Doppler waveforms: Multiphasic bilaterally throughout. Pulse volume recording: Normal configuration. Pressure gradients: None. Ankle-brachial indices: Greater than 1 bilaterally. Impression: Normal study.
== END | disposition home or self-care (01) ==
LOC: RADUSWWP 14:21
PROVIDERS: ATTEND Thoracic Surgery (Cardiothoracic Vascular Surgery)
DX: M79.604 Pain in right leg (principal); M79.605 Pain in left leg
CPT/HCPCS: 93923

== ENCOUNTER 2017-10-05 10:03 | Inpatient (IN) | payer MEDICARE, OTHER ==
[2017-10-05] MEDS ORDERED: SODIUM CHLORIDE 0.9% 500 ML IV ONE (10:13)
[2017-10-05] MEDS ORDERED: SODIUM CHLORIDE 0.9% 1,000 ML IV ONE ×3 (10:13)
[2017-10-05] MEDS ORDERED: LORazepam 2 MG/ML INJ IV STA (10:21)
[2017-10-05] MEDS ORDERED: PANTOPRAZOLE 40 MG/10 ML VIAL IVP STA (10:21)
[2017-10-05] MEDS ORDERED: ONDANSETRON 4 MG/2 ML VIAL IVP STA (10:21)
[2017-10-05 10:35] LABS: Glucose,Whole Blood 345 mg/dL (75-99)
[2017-10-05 10:47] LABS: VBG PH 6.94 (7.31-7.41)
--- NOTE | 2017-10-05 10:48 | ED ---
General Adult HPI - General Chief complaint: Altered Mental Status Stated complaint: Cardiac Issues Time Seen by Provider: 10/05/17 10:12 Source: EMS, RN notes reviewed, old records reviewed Mode of arrival: EMS Limitations: altered mental status - History of Present Illness Initial comments: This is a 62-year-old male to the ER for evaluation. Patient is unable to get history secondary to critical condition history obtained from EMS, EMS called the patient's house patient was unresponsive found down. Bystanders did say that the patient may be drinking again or he does have a history of alcohol use. No other significant medical history is obtained - Related Data Home Medications Medication Instructions Recorded Confirmed Ranitidine HCl [Zantac] 150 mg PO BID 03/24/14 09/06/17 Tamsulosin HCl [Flomax] 0.4 mg PO HS 03/26/17 09/06/17 Citalopram Hydrobromide [CeleXA] 40 mg PO DAILY 08/24/17 09/06/17 Gabapentin [Neurontin] 300 mg PO TID 08/24/17 09/06/17 Diphenox-Atrop 2.5-0.025 mg 1 tab PO QID PRN 10/05/17 [Lomotil] HYDROcodone/APAP 10-325MG [[place] 1 - 2 tab PO Q6H PRN 10/05/17 10-325] Previous Rx's Medication Instructions Recorded traZODone HCL 100 mg PO HS #1 tablet 04/13/17 clonazePAM [KlonoPIN] 1 mg PO TID #12 tab 09/10/17 Allergies Allergy/AdvReac Type Severity Reaction Status Date / Time Penicillins Allergy Dyspnea, Verified 10/05/17 10:40 HIVES, THROAT SWELLING Review of Systems ROS Statement: Those systems with pertinent positive or pertinent negative responses have been documented in the HPI. ROS Other: All systems not noted in ROS Statement are negative. 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 Past Anesthesia/Blood Transfusion Reactions: Motion Sickness Additional Past Anesthesia/Blood Transfusion Reaction / Comment(s): claustrophobia Past Psychological History: ADD/ADHD, Anxiety, Depression Smoking Status: Never smoker Past Alcohol Use History: Abuse, Heavy Past Drug Use History: None Reported - Past Family History Mother Family Medical History: CVA/TIA, Diabetes Mellitus, Vascular Disorder Additional Family Medical History / Comment(s): emotional problems. age 64 of cva Father Family Medical History: Hypertension Additional Family Medical History / Comment(s): age 38 from mva General Exam Limitations: altered mental status, physical limitation General appearance: alert, anxious, lethargic, in distress Head exam: Present: atraumatic, normocephalic, normal inspection Eye exam: Present: normal appearance, PERRL, EOMI. Absent: scleral icterus, conjunctival injection, periorbital swelling ENT exam: Present: normal exam, mucous membranes moist Neck exam: Present: normal inspection. Absent: tenderness, meningismus, lymphadenopathy Respiratory exam: Present: normal lung sounds bilaterally. Absent: respiratory distress, wheezes, rales, rhonchi, stridor Cardiovascular Exam: Present: tachycardia, normal heart sounds. Absent: systolic murmur, diastolic murmur, rubs, gallop, clicks GI/Abdominal exam: Present: soft, normal bowel sounds. Absent: distended, tenderness, guarding, rebound, rigid Extremities exam: Present: normal inspection, full ROM, normal capillary refill. Absent: tenderness, pedal edema, joint swelling, calf tenderness Back exam: Present: normal inspection Neurological exam: Present: alert, oriented X3, CN II-XII intact Psychiatric exam: Present: normal affect, normal mood Skin exam: Present: warm, dry, intact, normal color. Absent: rash Course Vital Signs 10/05/17 10/05/17 10/05/17 10:08 10:16 11:10 Temperature 98.4 F Pulse Rate 233 H 128 H 117 H Respiratory 20 20 18 Rate Blood Pressure 135/104 213/132 160/105 O2 Sat by Pulse 74 L 98 100 Oximetry 10/05/17 11:37 Temperature Pulse Rate 96 Respiratory 16 Rate Blood Pressure 160/105 O2 Sat by Pulse 98 Oximetry - Reevaluation(s) Reevaluation #1: 10/05/17 11:47 Patient given aggressive fluid challenges 2 large-bore IVs pressure bag, patient 's heart rate immediately did respond, sinus tachycardia Reevaluation #2: 10/05/17 11:47 Patient given Ativan and Valium for EtOH EKG Findings - EKG Comments: EKG Findings:: EKG shows sinus tachycardia wide QRS rate to 35 QRS 162, QTc 435. EKG shows sinus tachycardia rate 141, IN 134, QRS 80, QTC 474 Medical Decision Making - Medical Decision Making 62 male the ER for evaluation of being found down unresponsive, patient is in severe distress on arrival to ER, and extremities. Patient given aggressive fluid resuscitation and medication, did show significant improvement - Lab Data Result diagrams: 10/05/17 10:16 10/05/17 10:16 Lab Results 10/05/17 10/05/17 10/05/17 Range/Units 10:09 10:16 10:16 WBC (3.8-10.6) k/uL RBC (4.30-5.90) m/uL Hgb (13.0-17.5) gm/dL Hct (39.0-53.0) % MCV (80.0-100.0) fL MCH (25.0-35.0) pg MCHC (31.0-37.0) g/dL RDW (11.5-15.5) % Plt Count (150-450) k/uL Neutrophils % % Lymphocytes % % Monocytes % % Eosinophils % % Basophils % % Neutrophils # (1.3-7.7) k/uL Lymphocytes # (1.0-4.8) k/uL Monocytes # (0-1.0) k/uL Eosinophils # (0-0.7) k/uL Basophils # (0-0.2) k/uL Hypochromasia Macrocytosis PT (9.0-12.0) sec INR (<1.2) APTT (22.0-30.0) sec D-Dimer (<0.60) mg/L FEU VBG pH 6.94 L* (7.31-7.41) VBG pCO2 39 (37-51) mmHg VBG HCO3 8 L* (24-28) mmol/L Sodium (137-145) mmol/L Potassium (3.5-5.1) mmol/L Chloride (98-107) mmol/L Carbon Dioxide (22-30) mmol/L Anion Gap mmol/L BUN (9-20) mg/dL Creatinine (0.66-1.25) mg/dL Est GFR (MDRD) Af Amer (>60 ml/min/1.73 sqM) Est GFR (MDRD) Non-Af (>60 ml/min/1.73 sqM) Glucose (74-99) mg/dL POC Glucose (mg/dL) 345 H (75-99) mg/dL POC Glu Flight Nurse ID Gómez Boland Calcium (8.4-10.2) mg/dL Phosphorus (2.5-4.5) mg/dL Magnesium (1.6-2.3) mg/dL Total Bilirubin (0.2-1.3) mg/dL AST (17-59) U/L ALT (21-72) U/L Alkaline Phosphatase (38-126) U/L Ammonia (<30) umol/L Total Creatine Kinase 352 H (55-170) U/L CK-MB (CK-2) 2.2 (0.0-2.4) ng/mL CK-MB (CK-2) Rel Index 0.6 Troponin I 0.043 H* (0.000-0.034) ng/mL NT-Pro-B Natriuret Pep pg/mL Total Protein (6.3-8.2) g/dL Albumin (3.5-5.0) g/dL Lipase (23-300) U/L TSH (0.465-4.680) mIU/L Urine Color Urine Appearance (Clear) Urine pH (5.0-8.0) Ur Specific [place] (1.001-1.035) Urine Protein (Negative) Urine Glucose (UA) (Negative) Urine Ketones (Negative) Urine Blood (Negative) Urine Nitrite (Negative) Urine Bilirubin (Negative) Urine Urobilinogen (<2.0) mg/dL Ur Leukocyte Esterase (Negative) Urine RBC (0-5) /hpf Urine WBC (0-5) /hpf Ur Squamous Epith Cells (0-4) /hpf Urine Bacteria (None) /hpf Hyaline Casts (0-2) /lpf Urine Mucus (None) /hpf Salicylates mg/dL Urine Opiates Screen (NotDetected) Ur Oxycodone Screen (NotDetected) Urine Methadone Screen (NotDetected) Ur Propoxyphene Screen (NotDetected) Acetaminophen ug/mL Ur Barbiturates Screen (NotDetected) U Tricyclic Antidepress (NotDetected) Ur Phencyclidine Scrn (NotDetected) Ur Amphetamines Screen (NotDetected) U Methamphetamines Scrn (NotDetected) U Benzodiazepines Scrn (NotDetected) Urine Cocaine Screen (NotDetected) U Marijuana (THC) Screen (NotDetected) Serum Alcohol mg/dL Acetone, Qual (Negative) 10/05/17 10/05/17 10/05/17 Range/Units 10:16 10:16 10:16 WBC 18.3 H (3.8-10.6) k/uL RBC 4.31 (4.30-5.90) m/uL Hgb 15.0 D (13.0-17.5) gm/dL Hct 46.8 (39.0-53.0) % MCV 108.6 H (80.0-100.0) fL MCH 34.8 (25.0-35.0) pg MCHC 32.1 (31.0-37.0) g/dL RDW 13.3 (11.5-15.5) % Plt Count 198 D (150-450) k/uL Neutrophils % 70 % Lymphocytes % 22 % Monocytes % 6 % Eosinophils % 0 % Basophils % 0 % Neutrophils # 12.8 H (1.3-7.7) k/uL Lymphocytes # 4.0 (1.0-4.8) k/uL Monocytes # 1.1 H (0-1.0) k/uL Eosinophils # 0.0 (0-0.7) k/uL Basophils # 0.1 (0-0.2) k/uL Hypochromasia Slight Macrocytosis Moderate PT 11.5 (9.0-12.0) sec INR 1.2 H (<1.2) APTT 25.9 (22.0-30.0) sec D-Dimer 1.41 H (<0.60) mg/L FEU VBG pH (7.31-7.41) VBG pCO2 (37-51) mmHg VBG HCO3 (24-28) mmol/L Sodium 153 H (137-145) mmol/L Potassium 3.6 (3.5-5.1) mmol/L Chloride 103 (98-107) mmol/L Carbon Dioxide 7 L* (22-30) mmol/L Anion Gap 43 mmol/L BUN 43 H (9-20) mg/dL Creatinine 2.10 H (0.66-1.25) mg/dL Est GFR (MDRD) Af Amer 39 (>60 ml/min/1.73 sqM) Est GFR (MDRD) Non-Af 32 (>60 ml/min/1.73 sqM) Glucose 380 H (74-99) mg/dL POC Glucose (mg/dL) (75-99) mg/dL POC Glu Flight Nurse ID Calcium 11.2 H (8.4-10.2) mg/dL Phosphorus 12.4 H* (2.5-4.5) mg/dL Magnesium 2.5 H (1.6-2.3) mg/dL Total Bilirubin 2.1 H (0.2-1.3) mg/dL AST 45 (17-59) U/L ALT 8 L (21-72) U/L Alkaline Phosphatase 77 (38-126) U/L Ammonia (<30) umol/L Total Creatine Kinase (55-170) U/L CK-MB (CK-2) (0.0-2.4) ng/mL CK-MB (CK-2) Rel Index Troponin I (0.000-0.034) ng/mL NT-Pro-B Natriuret Pep pg/mL Total Protein 9.5 H (6.3-8.2) g/dL Albumin 5.5 H (3.5-5.0) g/dL Lipase 335 H (23-300) U/L TSH 0.924 (0.465-4.680) mIU/L Urine Color Urine Appearance (Clear) Urine pH (5.0-8.0) Ur Specific [place] (1.001-1.035) Urine Protein (Negative) Urine Glucose (UA) (Negative) Urine Ketones (Negative) Urine Blood (Negative) Urine Nitrite (Negative) Urine Bilirubin (Negative) Urine Urobilinogen (<2.0) mg/dL Ur Leukocyte Esterase (Negative) Urine RBC (0-5) /hpf Urine WBC (0-5) /hpf Ur Squamous Epith Cells (0-4) /hpf Urine Bacteria (None) /hpf Hyaline Casts (0-2) /lpf Urine Mucus (None) /hpf Salicylates <1.0 mg/dL Urine Opiates Screen (NotDetected) Ur Oxycodone Screen (NotDetected) Urine Methadone Screen (NotDetected) Ur Propoxyphene Screen (NotDetected) Acetaminophen <10.0 ug/mL Ur Barbiturates Screen (NotDetected) U Tricyclic Antidepress (NotDetected) Ur Phencyclidine Scrn (NotDetected) Ur Amphetamines Screen (NotDetected) U Methamphetamines Scrn (NotDetected) U Benzodiazepines Scrn (NotDetected) Urine Cocaine Screen (NotDetected) U Marijuana (THC) Screen (NotDetected) Serum Alcohol <10 mg/dL Acetone, Qual Negative (Negative) 10/05/17 10/05/17 10/05/17 Range/Units 10:16 10:16 10:29 WBC (3.8-10.6) k/uL RBC (4.30-5.90) m/uL Hgb (13.0-17.5) gm/dL Hct (39.0-53.0) % MCV (80.0-100.0) fL MCH (25.0-35.0) pg MCHC (31.0-37.0) g/dL RDW (11.5-15.5) % Plt Count (150-450) k/uL Neutrophils % % Lymphocytes % % Monocytes % % Eosinophils % % Basophils % % Neutrophils # (1.3-7.7) k/uL Lymphocytes # (1.0-4.8) k/uL Monocytes # (0-1.0) k/uL Eosinophils # (0-0.7) k/uL Basophils # (0-0.2) k/uL Hypochromasia Macrocytosis PT (9.0-12.0) sec INR (<1.2) APTT (22.0-30.0) sec D-Dimer (<0.60) mg/L FEU VBG pH (7.31-7.41) VBG pCO2 (37-51) mmHg VBG HCO3 (24-28) mmol/L Sodium (137-145) mmol/L Potassium (3.5-5.1) mmol/L Chloride (98-107) mmol/L Carbon Dioxide (22-30) mmol/L Anion Gap mmol/L BUN (9-20) mg/dL Creatinine (0.66-1.25) mg/dL Est GFR (MDRD) Af Amer (>60 ml/min/1.73 sqM) Est GFR (MDRD) Non-Af (>60 ml/min/1.73 sqM) Glucose (74-99) mg/dL POC Glucose (mg/dL) (75-99) mg/dL POC Glu Flight Nurse ID Calcium (8.4-10.2) mg/dL Phosphorus (2.5-4.5) mg/dL Magnesium (1.6-2.3) mg/dL Total Bilirubin (0.2-1.3) mg/dL AST (17-59) U/L ALT (21-72) U/L Alkaline Phosphatase (38-126) U/L Ammonia 186 H (<30) umol/L Total Creatine Kinase (55-170) U/L CK-MB (CK-2) (0.0-2.4) ng/mL CK-MB (CK-2) Rel Index Troponin I (0.000-0.034) ng/mL NT-Pro-B Natriuret Pep 1290 pg/mL Total Protein (6.3-8.2) g/dL Albumin (3.5-5.0) g/dL Lipase (23-300) U/L TSH (0.465-4.680) mIU/L Urine Color Yellow Urine Appearance Cloudy (Clear) Urine pH 6.5 (5.0-8.0) Ur Specific [place] 1.009 (1.001-1.035) Urine Protein 3+ H (Negative) Urine Glucose (UA) 3+ H (Negative) Urine Ketones 1+ H (Negative) Urine Blood Moderate H (Negative) Urine Nitrite Negative (Negative) Urine Bilirubin Negative (Negative) Urine Urobilinogen <2.0 (<2.0) mg/dL Ur Leukocyte Esterase Small H (Negative) Urine RBC 3 (0-5) /hpf Urine WBC 23 H (0-5) /hpf Ur Squamous Epith Cells 4 (0-4) /hpf Urine Bacteria Occasional H (None) /hpf Hyaline Casts 96 H (0-2) /lpf Urine Mucus Few H (None) /hpf Salicylates mg/dL Urine Opiates Screen Not Detected (NotDetected) Ur Oxycodone Screen Not Detected (NotDetected) Urine Methadone Screen Not Detected (NotDetected) Ur Propoxyphene Screen Not Detected (NotDetected) Acetaminophen ug/mL Ur Barbiturates Screen Not Detected (NotDetected) U Tricyclic Antidepress Not Detected (NotDetected) Ur Phencyclidine Scrn Not Detected (NotDetected) Ur Amphetamines Screen Not Detected (NotDetected) U Methamphetamines Scrn Not Detected (NotDetected) U Benzodiazepines Scrn Not Detected (NotDetected) Urine Cocaine Screen Not Detected (NotDetected) U Marijuana (THC) Screen Not Detected (NotDetected) Serum Alcohol mg/dL Acetone, Qual (Negative) - Radiology Data Radiology results: report reviewed (Chest x-ray negative CTA negative), image reviewed Critical Care Time Critical Care Time: Yes Total Critical Care Time: 31 Disposition Clinical Impression: Alcohol withdrawal, Alcohol abuse, Delirium due to general medical condition, ARF (acute renal failure), UTI (urinary tract infection), Tachycardia, Dehydration Disposition: ADMITTED IP TO THIS [facility] Condition: Critical Referrals: Remington Mustafa MD [Primary Care Provider] - 1-2 days
[2017-10-05 10:49] LABS: Basophils # (A) 0.1 k/uL (0-0.2); Basophils % (A) 0 %; Eosinophils % (A) 0 %; HCT 46.8 % (39.0-53.0); Hypochromasia Slight; Lymphocytes % (A) 22 %; MCH 34.8 pg (25.0-35.0); MCHC 32.1 g/dL (31.0-37.0); MCV 108.6 fL (80.0-100.0); Macrocytosis Moderate; Mean Platelet Volume 8.4; Monocytes # (A) 1.1 k/uL (0-1.0); Monocytes % (A) 6 %; Neutrophils # (A) 12.8 k/uL (1.3-7.7); Neutrophils % (A) 70 %; Platelet Count 198 k/uL (150-450); RBC 4.31 m/uL (4.30-5.90); RDW 13.3 % (11.5-15.5); WBC 18.3 k/uL (3.8-10.6)
[2017-10-05 10:55] LABS: ALT 8 U/L (21-72); Acetaminophen <10.0 ug/mL; Albumin 5.5 g/dL (3.5-5.0); Alcohol <10 mg/dL; Alkaline Phosphatase 77 U/L (38-126); Anion Gap 43 mmol/L; Blood Urea Nitrogen 43 mg/dL (9-20); Calcium 11.2 mg/dL (8.4-10.2); Chloride 103 mmol/L (98-107); Glucose 380 mg/dL (74-99); Lipase 335 U/L (23-300); Magnesium 2.5 mg/dL (1.6-2.3); Potassium 3.6 mmol/L (3.5-5.1); Salicylate <1.0 mg/dL; Sodium 153 mmol/L (137-145); Total Bilirubin 2.1 mg/dL (0.2-1.3); Total Protein 9.5 g/dL (6.3-8.2)
[2017-10-05 11:00] LABS: Appearance,Urine Cloudy (Clear); Bacteria,Urine Occasional /hpf; Bilirubin,Urine Negative (Negative); Blood,Urine Moderate (Negative); Color,Urine Yellow; Glucose,Urine (UA) 3+ (Negative); Hyaline Casts,Urine 96 /lpf (0-2); Ketones,Urine 1+ (Negative); Leukocyte Esterase,Urine Small (Negative); Mucus,Urine Few /hpf; Nitrite,Urine Negative (Negative); PH, Urine 6.5 (5.0-8.0); Protein,Urine 3+ (Negative); RBC,Urine 3 /hpf (0-5); Specific Gravity,Urine 1.009 (1.001-1.035); Squamous Epithelial Cell,Urine 4 /hpf (0-4); Urobilinogen,Urine <2.0 mg/dL (<2.0); WBC,Urine 23 /hpf (0-5)
[2017-10-05 11:01] LABS: AST 45 U/L (17-59)
[2017-10-05 11:03] LABS: Amphetamine Screen,Urine Not Detected (NotDetected); Barbiturate Screen,Urine Not Detected (NotDetected); Benzodiazepines Screen,Urine Not Detected (NotDetected); Cocaine Screen,Urine Not Detected (NotDetected); Methadone Screen, Urine Not Detected (NotDetected); Opiate Screen,Urine Not Detected (NotDetected); Oxycodone Screen, Urine Not Detected (NotDetected); Phencyclidine Screen,Urine Not Detected (NotDetected); Tricyclic Antidepressant,Urine Not Detected (NotDetected); Urn Cannabinoid Scrn Not Detected (NotDetected)
[2017-10-05 11:07] LABS: Carbon Dioxide 7 mmol/L (22-30); D-Dimer 1.41 mg/L FEU (<0.60); INR 1.2 (<1.2); Partial Thromboplastin Time 25.9 sec (22.0-30.0); Phosphorus 12.4 mg/dL (2.5-4.5); Prothrombin Time 11.5 sec (9.0-12.0)
[2017-10-05] MEDS ORDERED: SODIUM CHLORIDE 0.9% 1,000 ML IV STA (11:14)
[2017-10-05] MEDS ORDERED: DIAZEPAM 5 MG/ML 2 ML INJ IVP STA (11:14)
[2017-10-05] MEDS ORDERED: cefTRIAXone IN SWFI 1,000 MG/10 ML SYRINGE IVP STA (11:14)
--- NOTE | 2017-10-05 11:14 | XR ---
EXAMINATION TYPE: XR chest 1V portable DATE OF EXAM: 10/05/2017 COMPARISON: 09/06/2017 INDICATION: Altered mental status shaking uncontrollably TECHNIQUE: Single frontal view of the chest is obtained. FINDINGS: The heart size is normal. The pulmonary vasculature is normal. The lungs are clear. Catheter overlies the chest. EKG leads overlie the chest. IMPRESSION: 1. No acute pulmonary process.
--- NOTE | 2017-10-05 11:18 | CT ---
EXAMINATION TYPE: CT brain wo con DATE OF EXAM: 10/05/2017 HISTORY: cardiac issues/altered mental status CT DLP: 1230 mGycm. Automated Exposure Control for Dose Reduction was Utilized. TECHNIQUE: CT scan of the head is performed without contrast. COMPARISON: CT brain September 07, 2017. FINDINGS: There is no acute intracranial hemorrhage or midline shift identified. There is diffuse v entricular and sulcal prominence consistent with diffuse age-related cerebral atrophy. There is low- attenuation in the periventricular white matter consistent with chronic small vessel ischemic change. A mucous retention cyst or polyp in the inferior lateral right maxillary sinus is noted otherwise pa ranasal sinuses are clear. The globes are intact bilaterally. IMPRESSION: No acute intracranial hemorrhage or midline shift. There is mild diffuse age-related ce rebral atrophy and chronic small vessel ischemic change redemonstrated. There is no significant varner ge from prior CT.
[2017-10-05 11:30] LABS: Creatine Kinase MB 2.2 ng/mL (0.0-2.4)
[2017-10-05 11:35] LABS: Troponin I 0.043 ng/mL (0.000-0.034)
[2017-10-05] MEDS ORDERED: THIAMINE 100 MG/ML 2 ML VIAL IM STA (11:43)
[2017-10-05] MEDS ORDERED: LORazepam 2 MG/ML INJ IV PRN (11:43)
[2017-10-05] MEDS ORDERED: MORPHINE SULFATE 2 MG/ML SYRINGE IVP ONE (11:48)
[2017-10-05] MEDS: SODIUM CHLORIDE 0.9% 1,000 ML IV SCH ×2 (12:37→17:20)
[2017-10-05 13:06] LABS: Glucose,Whole Blood 121 mg/dL (75-99)
[2017-10-05 13:39] LABS: ABG Base Excess -4.4 mmol/L; ABG HCO3 20 mmol/L (21-25); ABG PCO2 32 mmHg (35-45); ABG PH 7.42 (7.35-7.45); ABG PO2 166 mmHg (83-108); ABG TCO2 21 mmol/L (19-24)
[2017-10-05] MEDS: LORazepam 2 MG/ML INJ IV PRN ×3 (15:37→21:13)
[2017-10-05] MEDS ORDERED: GABAPENTIN 300 MG CAP PO SCH (17:00)
[2017-10-05] MEDS ORDERED: THIAMINE 100 MG TAB PO SCH (17:00)
[2017-10-05] MEDS: CITALOPRAM HYDROBROMIDE 20 MG TAB PO SCH (17:23)
[2017-10-05] MEDS: MULTIVITAMINS, THERA 1 EACH TAB PO SCH (17:23)
[2017-10-05] MEDS: cloNIDine HCL 0.1 MG TAB PO SCH ×2 (17:23→21:57)
[2017-10-05] MEDS: THIAMINE 100 MG TAB PO SCH (17:23)
[2017-10-05] MEDS: FOLIC ACID 1 MG TAB PO SCH (17:23)
[2017-10-05] MEDS ORDERED: DEXTROSE 5% IN WATER 1,000 ML with SODIUM BICARB (1 MEQ/ML) 100 ML IV SCH (17:45)
[2017-10-05] MEDS ORDERED: DEXTROSE 5% IN WATER 1,000 ML IV SCH (17:45)
[2017-10-05] MEDS: clonazePAM 1 MG TAB PO SCH ×2 (18:32→22:49)
[2017-10-05] MEDS: LACTULOSE 20 GM/30 ML CUP PO SCH ×2 (18:32→21:56)
[2017-10-05 18:37] LABS: Anion Gap 13 mmol/L; Blood Urea Nitrogen 44 mg/dL (9-20); Carbon Dioxide 21 mmol/L (22-30); Chloride 112 mmol/L (98-107); Glucose 128 mg/dL (74-99); Magnesium 1.9 mg/dL (1.6-2.3); Phosphorus 5.7 mg/dL (2.5-4.5); Potassium 3.8 mmol/L (3.5-5.1); Sodium 146 mmol/L (137-145)
--- NOTE | 2017-10-05 18:57 | P.CNPUL ---
History of Present Illness Consult date: 10/05/17 Requesting physician: Damien Bruce Reason for consult: other Chief complaint: Altered mental status History of present illness: Valentin is a 62-year-old white male patient, who was recently discharged from the hospital on 09/10/2017 after being hospitalized for alcohol intoxication, gait dysfunction with falls, clavicular fracture to the [facility] on the [place] where he was undergoing rehabilitation. Patient had completed his therapy course at the [facility] on the [place] and was discharged home 5 days ago. This morning on 2017 at 1003 patient was brought in per EMS after being found down unresponsive. Patient's family believes patient had relapsed after returning home from the rehab and had been drinking again. On presentation patient was in SVT with a rate of 233 bpm, hypertensive with a blood pressure as high as 213 /132, hypoxic with a pulse ox of 74% on room air. Patient was placed on supplemental oxygen, he was fluid resuscitated with 4 L of 0.9 normal saline, patient's heart rate responded nicely to IV resuscitation. In addition patient received Ativan and Valium for EtOH withdrawal. Venous blood gas showed pH of 6.94, pCO2 39, and bicarb of 8 on admission. Patient had evidence of leukocytosis with WBC of 18.3, d-dimer was elevated at 1.41, there was evidence of acute kidney injury with a BUN of 43 and creatinine of 2.10. Serum finds was found to be elevated at 12.4, total bilirubin was up to 2.1, lipase was elevated at 335, TSH was within normal limits. Serum alcohol was less than 10, acetaminophen was less than 10, salicylates was less than 1, ammonia level was elevated at 186, proBNP was 1290, drug screen was negative, serum acetone was negative, urinalysis showed cloudy urine with 3+ protein 3+ glucose, 1+ ketones , moderate blood negative for nitrates and positive for small amount of leukocyte Estrace, urine WBC was 23. Chest x-ray showed no acute pulmonary process. Blood and urine cultures were collected and sent, and are pending at this time. Patient was given IV Rocephin, and admitted to the intensive care for further management. At the time of my evaluation, patient's seen in the intensive care, awake, alert, oriented to self, he knew he was in the hospital and he knew who the president was. His verbal responses are somewhat slow. He denies any pain, he denies any respiratory difficulty. He is currently in sinus tachycardia with a rate of 101 10/08/2018 BPM, with frequent PACs. He remains somewhat hypertensive with a blood pressure of 178/113, his home antihypertensives were restarted, he continues on 2 L per nasal cannula with O2 sat at 98%. His respirations are even and nonlabored, his lung sounds are diminished, no rhonchi or wheezes auscultated. He has a chronic wound on his right lower extremity, he is missing his third, fourth and fifth toes, including the metatarsals. There is a necrotic area on the tip of his left third toe. Review of Systems All systems: negative Constitutional: Denies chills, Denies fever Eyes: denies blurred vision, denies pain Ears, nose, mouth and throat: Denies headache, Denies sore throat Cardiovascular: Reports high blood pressure, Denies chest pain, Denies shortness of breath Respiratory: Denies cough Gastrointestinal: Denies abdominal pain, Denies diarrhea, Denies nausea, Denies vomiting Musculoskeletal: Denies myalgias Integumentary: Denies pruritus, Denies rash Neurological: Denies numbness, Denies weakness Psychiatric: Denies anxiety, Denies depression Endocrine: Denies fatigue, Denies weight change Past Medical History Past Medical History: GERD/Reflux, Hyperlipidemia, Hypertension, Pneumonia, Skin Disorder, Vascular Disorder Additional Past Medical History / Comment(s): Pt recently admitted to [facility] on 09/07/17 with gait dysfunction, fall with L clavicle fracture, ETOH abuse, acute pancreatitis. Other hx; ETOH abuse, DT's, pancreatitis, chronic pain, PVD, neuropathy bilateral legs/feet, past nonhealing wounds bilateral feet-past wound care center/now healed, 2006 osteomylitis L foot, peptic ulcer with surgery, psoriasis, sinus problems. History of Any Multi-Drug Resistant Organisms: MRSA Date of last positivie culture/infection: 04/22/17 MDRO Source:: TOE Past Surgical History: Hernia Repair Additional Past Surgical History / Comment(s): Amputation of the fourth and fifth toes on the right through the metatarsal heads, multiple I&D to nonhealing wounds on the R foot, repair of perforated ucler of stomach, EGD/ colonoscopy, PICC lines in and out. Past Anesthesia/Blood Transfusion Reactions: Motion Sickness Additional Past Anesthesia/Blood Transfusion Reaction / Comment(s): claustrophobia Smoking Status: Former smoker - Past Family History Mother Family Medical History: CVA/TIA, Diabetes Mellitus, Vascular Disorder Additional Family Medical History / Comment(s): emotional problems. age 64 of cva Father Family Medical History: Hypertension Additional Family Medical History / Comment(s): age 38 from mva Medications and Allergies Home Medications Medication Instructions Recorded Confirmed Type Ranitidine HCl [Zantac] 150 mg PO BID 03/24/14 10/05/17 History Tamsulosin HCl [Flomax] 0.4 mg PO HS 03/26/17 10/05/17 History traZODone HCL 100 mg PO HS #1 tablet 04/13/17 10/05/17 Rx Citalopram Hydrobromide [CeleXA] 40 mg PO DAILY 08/24/17 10/05/17 History Gabapentin [Neurontin] 300 mg PO TID 08/24/17 10/05/17 History clonazePAM [KlonoPIN] 1 mg PO TID #12 tab 09/10/17 10/05/17 Rx Folic Acid 1 mg PO DAILY 10/05/17 10/05/17 History HYDROcodone/APAP 10-325MG [[place] 1 tab PO Q6H PRN 10/05/17 10/05/17 History 10-325] LORazepam [Ativan] 1 mg PO QID PRN 10/05/17 10/05/17 History Metoprolol Tartrate [Lopressor] 25 mg PO BID 10/05/17 10/05/17 History Multivitamins, Thera [Multivitamin 1 tab PO DAILY 10/05/17 10/05/17 History (formulary)] Nicotine 14Mg/24Hr Patch [Habitrol 1 patch TRANSDERM DAILY 10/05/17 10/05/17 History 14Mg/24Hr Patch] Thiamine HCl [Vitamin B-1] 100 mg PO BID@1200,1700 10/05/17 10/05/17 History cloNIDine HCL [Catapres] 0.1 mg PO TID 10/05/17 10/05/17 History Allergies Allergy/AdvReac Type Severity Reaction Status Date / Time Penicillins Allergy Dyspnea, Verified 10/05/17 10:40 HIVES, THROAT SWELLING Physical Exam Vitals: Vital Signs Temp Pulse Resp BP Pulse Ox 10/05/17 16:30 89 14 178/113 97 10/05/17 16:00 119 H 22 189/101 96 10/05/17 15:30 86 15 199/109 98 10/05/17 15:00 99 24 173/113 98 10/05/17 14:30 101 H 12 173/113 98 10/05/17 14:00 99 20 182/112 97 10/05/17 13:30 101 H 14 182/112 99 10/05/17 13:00 98.5 F 105 H 21 182/112 97 10/05/17 12:39 99 18 174/102 99 10/05/17 11:37 96 16 160/105 98 10/05/17 11:10 117 H 18 160/105 100 10/05/17 10:16 98.4 F 128 H 20 213/132 98 10/05/17 10:08 233 H 20 135/104 74 L Intake and Output 10/05/17 10/05/17 10/05/17 06:59 14:59 22:59 Intake Total 150 150 Output Total 150 15 Balance 0 135 Intake: Intake, IV Titration 150 150 Amount Sodium Chloride 0.9% 1, 150 150 000 ml @ 150 mls/hr IV . Q6H40M [facility] Rx#:[id number] Output: Urine 150 15 Other: Voiding Method Indwelling Catheter Weight 86.5 kg Patient Weight 10/06/17 06:59 Weight 86.5 kg - Constitutional General appearance: average body habitus, cooperative, no acute distress - EENT Eyes: PERRLA, normal appearance ENT: NA/AT Ears: bilateral: normal - Neck Neck: no lymphadenopathy Carotids: bilateral: upstroke normal Thyroid: bilateral: normal size - Respiratory Respiratory: bilateral: diminished - Cardiovascular Rhythm: regularly irregular Heart sounds: normal: S1, S2 leg Peripheral Edema: absent: None dorsalis pedis Peripheral Pulses: bilateral: Normal - Gastrointestinal General gastrointestinal: no organomegaly, soft, no tenderness - Integumentary Integumentary: normal turgor, pale - Neurologic Neurologic: CNII-XII intact - Musculoskeletal Patient has right foot third, fourth and fifth digit amputation, along with the metatarsal amputation. Left foot third toe has evidence of small area of necrosis on the tip of the toe Musculoskeletal: strength equal bilaterally - Psychiatric Alert and oriented 2, to place and self. Results - Laboratory Findings CBC and BMP: 10/05/17 10:16 10/05/17 18:18 ABG ABG pH 7.42 (7.35-7.45) 10/05/17 13:28 ABG pCO2 32 mmHg (35-45) L 10/05/17 13:28 ABG pO2 166 mmHg (83-108) H 10/05/17 13:28 ABG O2 Saturation 98.0 % (94-97) H 10/05/17 13:28 PT/INR, D-dimer PT 11.5 sec (9.0-12.0) 10/05/17 10:16 INR 1.2 (<1.2) H 10/05/17 10:16 D-Dimer 1.41 mg/L FEU (<0.60) H 10/05/17 10:16 Abnormal lab findings: Abnormal Labs 10/05/17 10/05/17 10/05/17 10:09 10:16 10:16 WBC MCV Neutrophils # Monocytes # INR D-Dimer ABG pCO2 ABG pO2 ABG HCO3 ABG O2 Saturation VBG pH 6.94 L* VBG HCO3 8 L* Sodium Carbon Dioxide BUN Creatinine Glucose POC Glucose (mg/dL) 345 H Calcium Phosphorus Magnesium Total Bilirubin ALT Ammonia Total Creatine Kinase 352 H Troponin I 0.043 H* Total Protein Albumin Lipase Urine Protein Urine Glucose (UA) Urine Ketones Urine Blood Ur Leukocyte Esterase Urine WBC Urine Bacteria Hyaline Casts Urine Mucus 10/05/17 10/05/17 10/05/17 10:16 10:16 10:16 WBC 18.3 H MCV 108.6 H Neutrophils # 12.8 H Monocytes # 1.1 H INR 1.2 H D-Dimer 1.41 H ABG pCO2 ABG pO2 ABG HCO3 ABG O2 Saturation VBG pH VBG HCO3 Sodium 153 H Carbon Dioxide 7 L* BUN 43 H Creatinine 2.10 H Glucose 380 H POC Glucose (mg/dL) Calcium 11.2 H Phosphorus 12.4 H* Magnesium 2.5 H Total Bilirubin 2.1 H ALT 8 L Ammonia Total Creatine Kinase Troponin I Total Protein 9.5 H Albumin 5.5 H Lipase 335 H Urine Protein Urine Glucose (UA) Urine Ketones Urine Blood Ur Leukocyte Esterase Urine WBC Urine Bacteria Hyaline Casts Urine Mucus 01/29/18 01/29/18 01/29/18 10:16 10:29 13:04 WBC MCV Neutrophils # Monocytes # INR D-Dimer ABG pCO2 ABG pO2 ABG HCO3 ABG O2 Saturation VBG pH VBG HCO3 Sodium Carbon Dioxide BUN Creatinine Glucose POC Glucose (mg/dL) 121 H Calcium Phosphorus Magnesium Total Bilirubin ALT Ammonia 186 H Total Creatine Kinase Troponin I Total Protein Albumin Lipase Urine Protein 3+ H Urine Glucose (UA) 3+ H Urine Ketones 1+ H Urine Blood Moderate H Ur Leukocyte Esterase Small H Urine WBC 23 H Urine Bacteria Occasional H Hyaline Casts 96 H Urine Mucus Few H 10/05/17 13:28 WBC MCV Neutrophils # Monocytes # INR D-Dimer ABG pCO2 32 L ABG pO2 166 H ABG HCO3 20 L ABG O2 Saturation 98.0 H VBG pH VBG HCO3 Sodium Carbon Dioxide BUN Creatinine Glucose POC Glucose (mg/dL) Calcium Phosphorus Magnesium Total Bilirubin ALT Ammonia Total Creatine Kinase Troponin I Total Protein Albumin Lipase Urine Protein Urine Glucose (UA) Urine Ketones Urine Blood Ur Leukocyte Esterase Urine WBC Urine Bacteria Hyaline Casts Urine Mucus - Diagnostic Findings Chest x-ray: report reviewed Additional studies: Twelve-lead EKG, brain CT reviewed Assessment and Plan Plan: Assessment: #1. Altered mental status, initially thought to be related to alcohol intoxication however, serum alcohol was negative at less than 10. Mental status is likely due to metabolic encephalopathy #2. Acute systemic inflammatory response rule out underlying sepsis, possibly related to acute pancreatitis, patient presented with SVT with a heart rate in the 230 BPM, leukocytosis, altered mental status, acute kidney injury #3. Mild pancreatitis possibly secondary to EtOH use, lipase of 335 #4. Acute kidney injury, present on admission, BUN of 43, and creatinine of 2.10 #5. Acute hypernatremia, secondary to free water deficit related to dehydration #6. Anion gap metabolic acidosis, possibly related to lactic acidosis, renal failure. Serum acetone was negative, serum alcohol, salicylate and acetone levels were all negative. #7. Hyperphosphatemia, related to acute kidney failure #8. Elevated bilirubin, possibly related to underlying liver disease #9. SVT, with a rate of 230 BPM on admission, recovered with fluid resuscitation and administration of benzodiazepines for EtOH withdrawal #10. Elevated ammonia level, 186 on admission, we'll initiate lactulose. #11. Elevated d-dimer of 1.41, rule out thromboembolic event #12. Troponin leak of 0.043, possibly related to hypoxia #13. History of recent hospitalization for acute alcohol intoxication, falls and comminuted left mid clavicle fracture, with subsequent discharge to subacute rehab followed by discharge home #14. 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 History of perforated gastric ulcer #16. History of EtOH abuse #17. History of ADD, anxiety and depression #18. Nicotine dependence, in remission #19. History of prolonged QT with polymorphic ventricular tachycardia Plan: Patient has been adequately fluid resuscitated, responded well to IV fluids, heart rate is currently better controlled, patient remains in sinus mechanism with the rate in the low 100s. Remains somewhat tachycardic, will restart his home antihypertensives. We will place the patient on lactulose for his elevated ammonia level we will obtain ultrasound of the abdomen to rule out gallstone pancreatitis. Continue with IV Rocephin for now, continue IV hydration with D5 W at a rate of 75 ML per hour. Will await the results of the final cultures, maintained CIWA protocol, monitor for delirium tremens. Continue with Protonix and Lovenox subcu. We'll recheck CBC, CMP, Mag, Phos, lipase, amylase in the morning. Will obtain bilateral lower leg ultrasound, may have to consider VQ scan if oxygenation worsens. I performed a history & physical examination of the patient and discussed their management with my nurse practitioner, Brynn Manzano. I reviewed the nurse practitioner's note and agree with the documented findings and plan of care. Lung sounds are diminished. The findings and the impression was discussed with the patient. I attest to the documentation by the nurse practitioner. Time with Patient: Greater than 30
[2017-10-05 19:30] LABS: ABG HCO3 22 mmol/L (21-25); ABG Oxygen Saturation 98.9 % (94-97); ABG PCO2 34 mmHg (35-45); ABG PH 7.41 (7.35-7.45); ABG PO2 119 mmHg (83-108); ABG TCO2 23 mmol/L (19-24)
[2017-10-05] MEDS ORDERED: WATER IV SCH (20:00)
[2017-10-05] MEDS ORDERED: DEXTROSE IV SCH (20:00)
[2017-10-05] MEDS ORDERED: DEXTROSE 5% IN WATER 1,000 ML with SODIUM BICARB (1 MEQ/ML) 75 ML IV SCH (20:00)
[2017-10-05] MEDS ORDERED: SOD BICARB IV SCH (20:00)
--- NOTE | 2017-10-05 20:07 | HP ---
HISTORY AND PHYSICAL DATE OF ADMISSION: 10/05/2017 PRESENTING COMPLAINT: Found totally disheveled. HISTORY OF PRESENTING COMPLAINT: This is a 62-year-old patient of Dr. Mustafa who was found totally disheveled in his house. Actually per the EMS report, when they arrived they found the patient to be conscious, alert, was hyperventilating, anxious with altered mental status. The apartment staff had reported a foul odor coming from the patient's apartment, and the patient had not been seen for a few days. The patient was found sitting on his bed covered in feces and the patient did not know how long he was like that. He only gave his name at that time and did not answer any more questions. The patient had just been released from a 30-day rehab session. The patient at that time denied taking any alcohol, but also stated he had hardly been drinking water. Telemetry at that time showed narrow complex tachycardia. On arrival in the ER the patient had a pulse close to 200, respiration 20, and patient's pulse ox was 74% on non-rebreather. When I saw the patient in the ICU, the patient was sitting up, jittery; could just about talk, only could not give much of a history. The patient states he has not been drinking. REVIEW OF SYSTEMS: Cannot be obtained, as patient is barely able to talk. PAST MEDICAL HISTORY: 1. GERD. 2. Hyperlipidemia. 3. Hypertension. 4. Alcoholism. 5. Peripheral artery disease. 6. Peripheral neuropathy. 7. Alcoholic hepatitis. 8. Bipolar disorder. 9. COPD. PAST SURGICAL HISTORY: 1. Hernia repair. 2. Amputation of the fourth and fifth toes on the right, including metatarsal heads. 3. Multiple I&Ds of non-healing wounds on the right foot. 4. Repair of perforated ulcer of the stomach. PAST PSYCH HISTORY: Bipolar disorder. SOCIAL HISTORY: The patient just finished a one-month rehab at a detox center. He continues living by himself in an apartment, it appears. Patient is a long-standing smoker, still doing a few cigarettes a days. He apparently has not had a drink for the last few weeks. FAMILY HISTORY: Stroke, diabetes mellitus, type 2, vascular disorder. HOME MEDICATIONS: 1. Trazodone 100 mg at bedtime. 2. Klonopin 1 mg p.o. t.i.d. 3. Catapres 0.1 mg p.o. t.i.d. 4. Thiamine 100 mg p.o. b.i.d. 5. Flomax 0.4 mg at bedtime. 6. Zantac 150 mg b.i.d. 7. Nicotine patch. 8. Multivitamin. 9. Lopressor 25 p.o. b.i.d. 10.Ativan 1 mg p.o. q.i.d. p.r.n. 11.[place]ow 10 one tablet q.6 p.r.n. 12.Neurontin 300 mg p.o. t.i.d. 13.Folic acid 1 mg p.o. daily. 14.Celexa 40 mg daily. ALLERGIES: PENICILLIN. PHYSICAL EXAMINATION: VITAL SIGNS ON PRESENTATION: Afebrile, pulse 200, respiration 20, blood pressure 213/132, repeat 160/105, pulse ox 74% on non-rebreather. GENERAL APPEARANCE: BMI 23.8. Sitting on bed. Very jittery, dishevelled. EYES: Pupils equal. Conjunctivae normal. HEENT: External appearance of nose and ears normal. Oral cavity with dry mucous membrane. NECK: JVD not raised. Mass not palpable. Respiratory effort increased. LUNGS: Diminished breath sounds. Prolonged expiration. CARDIOVASCULAR: First and second sounds normal. No edema. ABDOMEN: Soft, nontender. Liver and spleen not palpable. LYMPHATIC: No lymph node palpable in neck or axillae. PSYCHIATRY: Patient can state his name but is barely able to speak. Very anxious- appearing. NEURO: Pupils equal. Cranial nerves grossly intact. Moving all 4 limbs. The patient is having fasciculations and also having some tremors. EXTREMITIES: Right foot third and fourth toes are gone. Left foot second toe has plantar dry gangrene. INVESTIGATIONS: White count 18.3, hemoglobin 15, platelets 198. Initial venous blood gas showed a pH of 6.94. Sodium was 153, potassium 3.6, bicarb 7, BUN 43, creatinine 2.10, phosphorus 12.4, calcium 11.2, ammonia 186. Troponin 0.043. Urine drug screen negative. EKG shows possibly sinus tachycardia with some PVCs and a repeat EKG showed a rate up to 235. Chest x-ray is clear. ASSESSMENT: 1. Acute renal failure, probably a combination of prerenal and acute tubular necrosis. It is unclear what medication the patient was taking. 2. Severe metabolic acidosis, probably from renal failure, present on admission. 3. Severe hypernatremia from free water deficit. Patient has barely been drinking at home, he states. 4. Hypercalcemia secondary to dehydration. 5. Hyperphosphatemia, probably secondary to renal failure, which is more acute. 6. Hyperammonemia. Patient probably has underlying liver disease. 7. Acute delirium, multifactorial, present on admission. 8. Acute chronic obstructive pulmonary disease and chronic nicotine dependence. 9. Chronic nicotine dependence. Patient is a smoker. 10.Peripheral artery disease. 11.Gastroesophageal reflux disease. 12.Essential hypertension. 13.Bipolar disorder. 14.Peripheral neuropathy. 15.Hyperglycemia. PLAN: Patient's normal saline will be changed over to D5W at 150 mL/hour to combat the hypernatremia. We will also start the patient on a bicarbonate drip. Later this evening a repeat set of electrolytes will be checked. Consultations with Dr. Ruiz from Critical Care, Nephrology for the severe dsyelectrolytemia and Psychiatry. Given patient's abnormal EKG, troponin leak is likely from hemodynamic mismatch. Will get a cardiology opinion. Patient did have an echocardiogram earlier in the month showed an EF of 50% to 55%. The patient is admitted to the intensive care unit. He will also be given a nicotine patch. For blood pressure, patient is also put on Catapres. Patient is also on Lopressor. We will also get psychiatry input; not sure if patient has been taking his medications at home. parks and recreation worker of course will be involved. I did try to call his sister's phone number listed but got voicemail. MMODL / IJN: [id number] /
[2017-10-05] MEDS: METOPROLOL TARTRATE 25 MG TAB PO SCH (20:27)
[2017-10-05] MEDS: TAMSULOSIN 0.4 MG CAP.ER.24H PO SCH (20:27)
--- NOTE | 2017-10-05 20:40 | US ---
EXAMINATION TYPE: US venous doppler duplex LE DATE OF EXAM: 10/05/2017 6:58 PM COMPARISON: NONE CLINICAL HISTORY: rule out DVT. SIDE PERFORMED: Bilateral TECHNIQUE: The lower extremity deep venous system is examined utilizing real time linear array sonog karey with graded compression, doppler sonography and color-flow sonography. VESSELS IMAGED: External Iliac Vein (EIV) Common Femoral Vein Deep Femoral Vein Greater Saphenous Vein * Femoral Vein Popliteal Vein Small Saphenous Vein * Proximal Calf Veins (* superficial vessels) Right Leg: Negative for DVT Left Leg: Negative for DVT No evidence of DVT bilateral legs. IMPRESSION: Negative exam. No evidence of deep venous thrombosis on both legs.
[2017-10-05] MEDS ORDERED: FOMEPIZOLE IVPB ONE (21:00)
[2017-10-05] MEDS ORDERED: SODIUM CHLORIDE 0.9% IVPB ONE (21:00)
[2017-10-05] MEDS ORDERED: traZODone HCL 100 MG TAB PO SCH (21:00)
[2017-10-05] MEDS: DEXTROSE 5% IN WATER 1,000 ML with SODIUM BICARB (1 MEQ/ML) 75 ML IV SCH (21:07)
[2017-10-06] MEDS: LORazepam 2 MG/ML INJ IV PRN ×3 (02:08→14:36)
[2017-10-06] MEDS: DEXTROSE 5% IN WATER 1,000 ML with SODIUM BICARB (1 MEQ/ML) 75 ML IV SCH (02:12)
[2017-10-06] MEDS ORDERED: FLUMAZENIL 0.1 MG/ML 5 ML VIAL IVP ONE (02:28)
[2017-10-06 04:36] LABS: Basophils % (A) 0 %; Eosinophils # (A) 0.1 k/uL (0-0.7); Eosinophils % (A) 2 %; HCT 38.6 % (39.0-53.0); HGB 12.5 gm/dL (13.0-17.5); Lymphocytes # (A) 1.5 k/uL (1.0-4.8); Lymphocytes % (A) 21 %; MCH 33.9 pg (25.0-35.0); MCHC 32.3 g/dL (31.0-37.0); MCV 105.1 fL (80.0-100.0); Macrocytosis Slight; Mean Platelet Volume 8.1; Monocytes # (A) 0.3 k/uL (0-1.0); Monocytes % (A) 4 %; Neutrophils # (A) 5.2 k/uL (1.3-7.7); Neutrophils % (A) 72 %; Platelet Count 103 k/uL (150-450); RBC 3.68 m/uL (4.30-5.90); RDW 13.7 % (11.5-15.5); WBC 7.2 k/uL (3.8-10.6)
[2017-10-06 04:53] LABS: ALT 23 U/L (21-72); AST 36 U/L (17-59); Albumin 4.2 g/dL (3.5-5.0); Alkaline Phosphatase 58 U/L (38-126); Amylase 122 U/L (30-110); Anion Gap 13 mmol/L; Blood Urea Nitrogen 35 mg/dL (9-20); Calcium 9.3 mg/dL (8.4-10.2); Carbon Dioxide 27 mmol/L (22-30); Chloride 106 mmol/L (98-107); Glucose 112 mg/dL (74-99); Lipase 325 U/L (23-300); Magnesium 1.9 mg/dL (1.6-2.3); Phosphorus 4.5 mg/dL (2.5-4.5); Potassium 3.2 mmol/L (3.5-5.1); Sodium 146 mmol/L (137-145); Total Bilirubin 1.5 mg/dL (0.2-1.3); Total Protein 7.5 g/dL (6.3-8.2)
[2017-10-06] MEDS: POTASSIUM CHLORIDE ER 20 MEQ TAB.ER PO SCH ×3 (06:29→08:41)
[2017-10-06] MEDS ORDERED: CALCIUM ACETATE 667 MG CAP PO SCH (07:30)
[2017-10-06] MEDS: CITALOPRAM HYDROBROMIDE 20 MG TAB PO SCH (08:34)
[2017-10-06] MEDS: cloNIDine HCL 0.1 MG TAB PO SCH ×3 (08:35→23:54)
[2017-10-06] MEDS: ENOXAPARIN 40 MG/0.4 ML SYRINGE SQ SCH (08:35)
[2017-10-06] MEDS: LACTULOSE 20 GM/30 ML CUP PO SCH (08:35)
[2017-10-06] MEDS: METOPROLOL TARTRATE 25 MG TAB PO SCH ×3 (08:36→20:23)
--- NOTE | 2017-10-06 08:41 | US ---
EXAMINATION TYPE: US gallbladder DATE OF EXAM: 10/06/2017 COMPARISON: Limited abdominal ultrasound August 26, 2017 CLINICAL HISTORY: elevated lipase. Patient states no pain. NPO. EXAM MEASUREMENTS: Liver Length: 19.7 cm Gallbladder Wall: 0.3 cm CHD: 0.7 cm Right Kidney: 10.8 x 4.2 x 4.6 cm Pancreas: Tail obscured by overlying bowel gas. Main pancreatic duct = 2.2 mm. Appears echogenic. Liver: Appears enlarged. Gallbladder: Wall thickness is upper limits in normal. Evidence for sonographic Maria's sign: neg CBD: Obscured by overlying bowel gas CHD: Appears slightly dilated for patient age Right Kidney: wnl Pancreatic duct is visualized but not suspiciously dilated. Visualized portion of pancreas is unremar kable. IMPRESSION: Suboptimal evaluation of pancreas, visualized portions however are felt within normal crespo its. Consider pancreatic protocol CT/MRI follow-up if elevated labs persist.
[2017-10-06] MEDS: clonazePAM 1 MG TAB PO SCH ×2 (08:43→16:36)
[2017-10-06] MEDS ORDERED: Potassium Replacement Protocol 1 EACH MISC MISCELLANE PRN (08:46)
[2017-10-06] MEDS: cefTRIAXone IN SWFI 1,000 MG/10 ML SYRINGE IVP SCH (08:53)
[2017-10-06] MEDS ORDERED: SODIUM CHLORIDE 0.9% IVPB SCH (09:00)
[2017-10-06] MEDS ORDERED: FOMEPIZOLE IVPB SCH (09:00)
[2017-10-06] MEDS ORDERED: PANTOPRAZOLE 40 MG/10 ML VIAL IV SCH (09:00)
--- NOTE | 2017-10-06 09:29 | CONS ---
CONSULTATION This patient's medical records reviewed. The patient is a 62-year-old gentleman who was brought to the hospital yesterday with he was found unresponsive. Patient was just recently discharged from [facility] after he was being hospitalized with acute alcoholic intoxication, gait dysfunction with falls and the patient was subsequently discharged from [facility]. In the emergency room, patient was in SVT or sinus tachycardia at a rate of 200 beats per minute and was hypertensive and hypoxic. The patient was dehydrated. Patient was treated with IV fluids and metoprolol. Patient was hypernatremic. The drug screen was negative. After the fluid resuscitation, the patient is improved and this morning patient's heart rate is in the 60s, blood pressure is 130/80 mmHg. PAST MEDICAL HISTORY: Past medical history includes recurrent episodes for alcohol abuse, history of clavicular fracture, history of PVD and neuropathy, amputation of 4th and 5th toes on the right, EGD and colonoscopy in the past. HOME MEDICATIONS: The patient's home medications include Zantac, Flomax, Klonopin, Lopressor and Catapres for the blood pressure. PHYSICAL EXAMINATION: Physical examination at present reveals a 62-year-old gentleman who does not appear to be in any acute distress. He is alert and awake. Heart rate is 55 per minute, blood pressure is 157/85 mmHg. Head/ENT examination is negative. Neck is supple. There is no increase in jugular venous pressure. Both the carotid pulses are felt. There is no bruit. Chest is symmetrical. HEART: The PMI is not felt. First and second heart sounds are normal. There is no evidence of any murmur. Lungs are clinically clear to auscultation and percussion. Abdomen is negative. EXTREMITIES: Peripheral pulsations are not felt. The patient's initial sodium was 153 the repeat sodium is Patient's creatinine now is . Bilirubin is 1.5. Chest x-ray does not show any significant failure. FINAL IMPRESSION: This patient is primarily admitted with acute dehydration, hypernatremia as well as possible acute pancreatitis. The patient had a significantly elevated heart rate and blood pressure which is under control. At present, we will continue the clonidine 0.1 mg t.i.d. for the control of the blood pressure further adjustment in the medications will be made as necessary. Echo and Doppler study will be done. MMODL / IJN: [id number] /
[2017-10-06] MEDS: HYDROcodone/APAP 10-325MG 1 EACH TAB PO PRN ×2 (10:00→20:26)
[2017-10-06] MEDS: SODIUM CHLORIDE 0.9% 1,000 ML IV SCH (10:11)
--- NOTE | 2017-10-06 11:03 | P.NPCON ---
History of Present Illness - Reason for Consult acute renal failure - History of Present Illness reason for consultation: Acute kidney injury and metabolic acidosis History of present illness: Patient is a 62-year-old male seen in renal consultation for acute kidney injury and metabolic acidosis. His creatinine was 2.1 on admission and is down to 1.2 today. Patient was also extremely acidotic with a bicarb level of 7. He was started on a bicarbonate drip and bicarb level is up to 27 today. Patient is currently resting in bed. He is quite lethargic. he is nonoliguric. Sodium level was also 153 on admission and is down to 146 today. She was brought to the hospital by the EMS after he was found down and confused. Apparently the patient had not been seen for few days and there was a foul order from his apartment. Patient does admit to drinking about a fifth of vodka a day. Volatile screen was negative. He did get a dose of fomepizole yesterday. hemodynamically stable. No evidence of hypotension.I don't see any NSAIDs and his home medications. He was taking Neurontin 300 mg 3 times daily which is currently held.he is now maintained on normal saline at 50 mL an hour. Diet will be advanced today. Does admit to loose bowel movements. No vomiting. Vital signs are stable. General: The patient appeared well nourished and normally developed. HEENT: Head exam is unremarkable. Neck is without jugular venous distension. LUNGS: Lungs are clear to auscultation and percussion. Breath sounds decreased. HEART: Rate and Rhythm are regular. First and second heart sounds normal. No murmurs, rubs or gallops. ABDOMEN: Abdominal exam reveals normal bowel sounds. Non-tender and non- distended. No evidence of peritonitis. EXTREMITITES: No clubbing, cyanosis, or edema. Past Medical History Past Medical History: GERD/Reflux, Hyperlipidemia, Hypertension, Pneumonia, Skin Disorder, Vascular Disorder Additional Past Medical History / Comment(s): Pt recently admitted to [facility] on 09/07/17 with gait dysfunction, fall with L clavicle fracture, ETOH abuse, acute pancreatitis. Other hx; ETOH abuse, DT's, pancreatitis, chronic pain, PVD, neuropathy bilateral legs/feet, past nonhealing wounds bilateral feet-past wound care center/now healed, 2006 osteomylitis L foot, peptic ulcer with surgery, psoriasis, sinus problems. History of Any Multi-Drug Resistant Organisms: MRSA Date of last positivie culture/infection: 04/22/17 MDRO Source:: TOE Past Surgical History: Hernia Repair Additional Past Surgical History / Comment(s): Amputation of the fourth and fifth toes on the right through the metatarsal heads, multiple I&D to nonhealing wounds on the R foot, repair of perforated ucler of stomach, EGD/ colonoscopy, PICC lines in and out. Past Anesthesia/Blood Transfusion Reactions: Motion Sickness Additional Past Anesthesia/Blood Transfusion Reaction / Comment(s): claustrophobia Smoking Status: Former smoker - Past Family History Mother Family Medical History: CVA/TIA, Diabetes Mellitus, Vascular Disorder Additional Family Medical History / Comment(s): emotional problems. age 64 of cva Father Family Medical History: Hypertension Additional Family Medical History / Comment(s): age 38 from mva Medications and Allergies Home Medications Medication Instructions Recorded Confirmed Type Ranitidine HCl [Zantac] 150 mg PO BID 03/24/14 10/05/17 History Tamsulosin HCl [Flomax] 0.4 mg PO HS 03/26/17 10/05/17 History traZODone HCL 100 mg PO HS #1 tablet 04/13/17 10/05/17 Rx Citalopram Hydrobromide [CeleXA] 40 mg PO DAILY 08/24/17 10/05/17 History Gabapentin [Neurontin] 300 mg PO TID 08/24/17 10/05/17 History clonazePAM [KlonoPIN] 1 mg PO TID #12 tab 09/10/17 10/05/17 Rx Folic Acid 1 mg PO DAILY 10/05/17 10/05/17 History HYDROcodone/APAP 10-325MG [[place] 1 tab PO Q6H PRN 10/05/17 10/05/17 History 10-325] LORazepam [Ativan] 1 mg PO QID PRN 10/05/17 10/05/17 History Metoprolol Tartrate [Lopressor] 25 mg PO BID 10/05/17 10/05/17 History Multivitamins, Thera [Multivitamin 1 tab PO DAILY 10/05/17 10/05/17 History (formulary)] Nicotine 14Mg/24Hr Patch [Habitrol 1 patch TRANSDERM DAILY 10/05/17 10/05/17 History 14Mg/24Hr Patch] Thiamine HCl [Vitamin B-1] 100 mg PO BID@1200,1700 10/05/17 10/05/17 History cloNIDine HCL [Catapres] 0.1 mg PO TID 10/05/17 10/05/17 History Allergies Allergy/AdvReac Type Severity Reaction Status Date / Time Penicillins Allergy Dyspnea, Verified 10/05/17 10:40 HIVES, THROAT SWELLING Physical Exam Vitals: Vital Signs Temp Pulse Resp BP Pulse Ox 10/06/17 10:00 55 L 20 154/76 99 10/06/17 09:00 49 L 14 142/69 100 10/06/17 08:00 97.6 F 53 L 24 103/75 98 10/06/17 07:00 55 L 16 157/85 99 10/06/17 06:00 57 L 14 145/69 93 L 10/06/17 05:00 51 L 15 152/79 100 10/06/17 04:00 97.2 F L 95 19 150/76 100 10/06/17 03:00 58 L 12 134/76 100 10/06/17 02:00 72 20 129/67 97 10/06/17 01:00 49 L 15 138/81 97 10/06/17 00:00 98.1 F 53 L 18 119/66 99 10/05/17 23:00 95 16 140/75 99 10/05/17 22:00 75 16 157/81 98 10/05/17 21:00 89 23 157/91 98 10/05/17 20:30 108 H 20 168/91 99 10/05/17 20:00 98.7 F 70 15 168/97 99 10/05/17 19:30 82 21 168/108 98 10/05/17 18:30 86 23 170/94 96 10/05/17 18:00 108 H 24 184/114 98 10/05/17 17:30 85 22 175/105 97 10/05/17 17:00 76 30 H 180/112 99 10/05/17 16:30 89 14 178/113 97 10/05/17 16:00 119 H 23 189/101 96 10/05/17 15:30 86 15 199/109 98 10/05/17 15:00 99 24 173/113 98 10/05/17 14:30 101 H 12 173/113 98 10/05/17 14:00 99 20 182/112 97 10/05/17 13:30 101 H 14 182/112 99 10/05/17 13:00 98.5 F 105 H 21 182/112 97 10/05/17 12:39 99 18 174/102 99 10/05/17 11:37 96 16 160/105 98 10/05/17 11:10 117 H 18 160/105 100 Intake and Output 10/05/17 10/06/17 10/06/17 22:59 06:59 14:59 Intake Total 1150 1200 600 Output Total 181 253 155 Balance 969 947 445 Intake: Intake, IV Titration 1150 1200 600 Amount Dextrose 5% in Water 1, 150 1200 600 000 ml @ 150 mls/hr IV . Q7H10M [facility] with Sodium Bicarb (1 Meq/ml) 75 ml Rx#:[id number] Fomepizole 1,300 mg In 100 Sodium Chloride 0.9% 100 ml @ 202.6 mls/hr IVPB ONCE ONE Rx#:[id number] Sodium Chloride 0.9% 1, 900 000 ml @ 150 mls/hr IV . Q6H40M [facility] Rx#:[id number] Output: Urine 181 253 155 Other: Voiding Method Indwelling Catheter Indwelling Catheter Weight 86.5 kg 88.7 kg 88.7 kg Patient Weight 10/07/17 06:59 Weight 88.7 kg Results - Lab Results Most recent lab results ABG pH 7.41 (7.35-7.45) 10/05/17 19:27 ABG pCO2 34 mmHg (35-45) L 10/05/17 19:27 ABG pO2 119 mmHg (83-108) H 10/05/17 19:27 ABG HCO3 22 mmol/L (21-25) 10/05/17 19:27 ABG O2 Saturation 98.9 % (94-97) H 10/05/17 19:27 Calcium 9.3 mg/dL (8.4-10.2) 10/06/17 04:07 Phosphorus 4.5 mg/dL (2.5-4.5) 10/06/17 04:07 Magnesium 1.9 mg/dL (1.6-2.3) 10/06/17 04:07 10/06/17 04:07 10/06/17 04:07 Assessment and Plan Plan: Assessment: #1. Nonoliguric acute kidney injury mostly prerenal from poor oral intake and diarrhea. Creatinine was 2.1 on admission and is down to 1.2 today. #2. Severe metabolic acidosis secondary to acute kidney injury. Improved. Volatile screen negative - s/p 1 dose of fomepizole. #3. Alcohol abuse. #4. Hypernatremia secondary to lack of oral water intake. Improved. #5. Tachycardia upon admission. Now his heart rate is in the 50s. Cardiology following.slight #6. Acute pancreatitis. #7. Hypokalemia due to poor oral intake and intracellular shifting from sodium bicarbonate. Magnesium replete. Plan: Continue normal saline to be run at 50 mL an hour. Encouraged oral intake, including free water. Avoid nephrotoxic agents and hypotensive episodes. Replace potassium. 60 mg once today. Continue to monitor renal function and urine output. Thank you for the consultation. I will continue to follow patient with you during his hospital stay.
[2017-10-06] MEDS: FOLIC ACID 1 MG TAB PO SCH (12:04)
[2017-10-06] MEDS: MULTIVITAMINS, THERA 1 EACH TAB PO SCH (12:04)
[2017-10-06] MEDS: THIAMINE 100 MG TAB PO SCH ×2 (12:05→16:36)
--- NOTE | 2017-10-06 12:09 | P.PN ---
Subjective Progress Note Date: 10/06/17 Principal diagnosis: Acute kidney injury and severe metabolic acidosis. Valentin is a 62-year-old white male patient, who was recently discharged from the hospital on 09/10/2017 after being hospitalized for alcohol intoxication, gait dysfunction with falls, clavicular fracture to the [facility] on [facility] where he was undergoing rehabilitation. Patient had completed his therapy course at the [facility] on the [place] and was discharged home 5 days ago. This morning on 2017 at 1003 patient was brought in per EMS after being found down unresponsive. Patient's family believes patient had relapsed after returning home from the rehab and had been drinking again. On presentation patient was in SVT with a rate of 233 bpm, hypertensive with a blood pressure as high as 213 /132, hypoxic with a pulse ox of 74% on room air. Patient was placed on supplemental oxygen, he was fluid resuscitated with 4 L of 0.9 normal saline, patient's heart rate responded nicely to IV resuscitation. In addition patient received Ativan and Valium for EtOH withdrawal. Venous blood gas showed pH of 6.94, pCO2 39, and bicarb of 8 on admission. Patient had evidence of leukocytosis with WBC of 18.3, d-dimer was elevated at 1.41, there was evidence of acute kidney injury with a BUN of 43 and creatinine of 2.10. Serum finds was found to be elevated at 12.4, total bilirubin was up to 2.1, lipase was elevated at 335, TSH was within normal limits. Serum alcohol was less than 10, acetaminophen was less than 10, salicylates was less than 1, ammonia level was elevated at 186, proBNP was 1290, drug screen was negative, serum acetone was negative, urinalysis showed cloudy urine with 3+ protein 3+ glucose, 1+ ketones , moderate blood negative for nitrates and positive for small amount of leukocyte Estrace, urine WBC was 23. Chest x-ray showed no acute pulmonary process. Blood and urine cultures were collected and sent, and are pending at this time. Patient was given IV Rocephin, and admitted to the intensive care for further management. At the time of my evaluation, patient's seen in the intensive care, awake, alert, oriented to self, he knew he was in the hospital and he knew who the president was. His verbal responses are somewhat slow. He denies any pain, he denies any respiratory difficulty. He is currently in sinus tachycardia with a rate of 101 10/08/2018 BPM, with frequent PACs. He remains somewhat hypertensive with a blood pressure of 178/113, his home antihypertensives were restarted, he continues on 2 L per nasal cannula with O2 sat at 98%. His respirations are even and nonlabored, his lung sounds are diminished, no rhonchi or wheezes auscultated. He has a chronic wound on his right lower extremity, he is missing his third, fourth and fifth toes, including the metatarsals. There is a necrotic area on the tip of his left third toe. Patient was reevaluated today on 10/06/2017, surprisingly the patient is doing better than expected considering his initial presentation. Patient responded and continues to respond well to fluid boluses and to sodium bicarb drip. As a matter of fact his bicarb is basically down normal. Patient presented with a bicarb of 7. And it is 27 today. Patient is less confused, and seems to be much more appropriate today compared to yesterday. Today I have discontinued his sodium bicarb, and discontinued. fomepizole. Apparently he received 1 dose. And his volatile screen came back negative. Today I plan to advance his diet, and I plan to transfer the patient out of the ICU with continuous monitoring for alcohol withdrawal. Patient remains on the protocol. Objective - Vital Signs Vital signs: Vital Signs Temp 97.6 F 10/06/17 08:00 Pulse 53 L 10/06/17 11:00 Resp 7 L 10/06/17 11:00 BP 104/60 10/06/17 11:00 Pulse Ox 99 10/06/17 11:00 Intake & Output 10/05/17 10/06/17 10/06/17 18:59 06:59 18:59 Intake Total 750 1750 650 Output Total 225 359 185 Balance 525 1391 465 Weight 86.5 kg 88.7 kg 88.7 kg Intake: Intake, IV Titration 750 1750 650 Amount Dextrose 5% in Water 1, 1350 600 000 ml @ 150 mls/hr IV . Q7H10M INGA with Sodium Bicarb (1 Meq/ml) 75 ml Rx#:[id number] Fomepizole 1,300 mg In 100 Sodium Chloride 0.9% 100 ml @ 202.6 mls/hr IVPB ONCE ONE Rx#:[id number] Sodium Chloride 0.9% 1, 750 300 000 ml @ 150 mls/hr IV . Q6H40M [facility] Rx#:[id number] Sodium Chloride 0.9% 1, 50 000 ml @ 50 mls/hr IV . Q20H [facility] Rx#:[id number] Output: Urine 225 359 185 Other: Voiding Method Indwelling Catheter Indwelling Catheter Indwelling Catheter - Exam - Constitutional General appearance: average body habitus, cooperative, no acute distress - EENT Eyes: PERRLA, normal appearance ENT: NA/AT Ears: bilateral: normal - Neck Neck: no lymphadenopathy Carotids: bilateral: upstroke normal Thyroid: bilateral: normal size - Respiratory Respiratory: bilateral: diminished - Cardiovascular Rhythm: regularly irregular Heart sounds: normal: S1, S2 leg Peripheral Edema: absent: None dorsalis pedis Peripheral Pulses: bilateral: Normal - Gastrointestinal General gastrointestinal: no organomegaly, soft, no tenderness - Integumentary Integumentary: normal turgor, pale - Neurologic Neurologic: CNII-XII intact - Musculoskeletal Patient has right foot third, fourth and fifth digit amputation, along with the metatarsal amputation. Left foot third toe has evidence of small area of necrosis on the tip of the toe Musculoskeletal: strength equal bilaterally - Psychiatric Alert and oriented 2, to place and self. - Labs CBC & Chem 7: 10/06/17 04:07 10/06/17 04:07 Labs: Abnormal Lab Results - Last 24 Hours (Table) 10/05/17 10/05/17 10/05/17 Range/Units 13:04 13:28 18:18 RBC (4.30-5.90) m/uL Hgb (13.0-17.5) gm/dL Hct (39.0-53.0) % MCV (80.0-100.0) fL Plt Count (150-450) k/uL ABG pCO2 32 L (35-45) mmHg ABG pO2 166 H (83-108) mmHg ABG HCO3 20 L (21-25) mmol/L ABG O2 Saturation 98.0 H (94-97) % Sodium 146 H (137-145) mmol/L Potassium (3.5-5.1) mmol/L Chloride 112 H (98-107) mmol/L Carbon Dioxide 21 L (22-30) mmol/L BUN 44 H (9-20) mg/dL Creatinine 1.39 H (0.66-1.25) mg/dL Glucose 128 H (74-99) mg/dL POC Glucose (mg/dL) 121 H (75-99) mg/dL Osmolality (280-301) mosm/kg Phosphorus 5.7 H (2.5-4.5) mg/dL Total Bilirubin (0.2-1.3) mg/dL Amylase (30-110) U/L Lipase (23-300) U/L 10/05/17 10/05/17 10/06/17 Range/Units 18:18 19:27 04:07 RBC (4.30-5.90) m/uL Hgb (13.0-17.5) gm/dL Hct (39.0-53.0) % MCV (80.0-100.0) fL Plt Count (150-450) k/uL ABG pCO2 34 L (35-45) mmHg ABG pO2 119 H (83-108) mmHg ABG HCO3 (21-25) mmol/L ABG O2 Saturation 98.9 H (94-97) % Sodium 146 H (137-145) mmol/L Potassium 3.2 L (3.5-5.1) mmol/L Chloride (98-107) mmol/L Carbon Dioxide (22-30) mmol/L BUN 35 H (9-20) mg/dL Creatinine (0.66-1.25) mg/dL Glucose 112 H (74-99) mg/dL POC Glucose (mg/dL) (75-99) mg/dL Osmolality 309 H (280-301) mosm/kg Phosphorus (2.5-4.5) mg/dL Total Bilirubin 1.5 H (0.2-1.3) mg/dL Amylase 122 H (30-110) U/L Lipase 325 H (23-300) U/L 10/06/17 Range/Units 04:07 RBC 3.68 L (4.30-5.90) m/uL Hgb 12.5 L (13.0-17.5) gm/dL Hct 38.6 L (39.0-53.0) % MCV 105.1 H (80.0-100.0) fL Plt Count 103 L (150-450) k/uL ABG pCO2 (35-45) mmHg ABG pO2 (83-108) mmHg ABG HCO3 (21-25) mmol/L ABG O2 Saturation (94-97) % Sodium (137-145) mmol/L Potassium (3.5-5.1) mmol/L Chloride (98-107) mmol/L Carbon Dioxide (22-30) mmol/L BUN (9-20) mg/dL Creatinine (0.66-1.25) mg/dL Glucose (74-99) mg/dL POC Glucose (mg/dL) (75-99) mg/dL Osmolality (280-301) mosm/kg Phosphorus (2.5-4.5) mg/dL Total Bilirubin (0.2-1.3) mg/dL Amylase (30-110) U/L Lipase (23-300) U/L Microbiology - Last 24 Hours (Table) 10/05/17 10:29 Urine Culture - Preliminary Urine,Clean Catch Assessment and Plan Assessment: #1. Acute metabolic encephalopathy #2. Acute supraventricular tachycardia upon initial presentation #3. Subacute pancreatitis #4. Acute kidney injury, present on admission, BUN of 43, and creatinine of 2.10 #5. Acute hypernatremia, secondary to free water deficit related to dehydration #6. Acute anion gap metabolic acidosis secondary to acute kidney injury. #7. Hyperphosphatemia, related to acute kidney failure #8. Elevated bilirubin, possibly related to underlying liver disease #9. SVT, with a rate of 230 BPM on admission, recovered with fluid resuscitation and administration of benzodiazepines for EtOH withdrawal #10. Elevated ammonia level, 186 on admission, we'll initiate lactulose. #11. Elevated d-dimer of 1.41, nonspecific, no need for workup for thromboembolic disease, the presentation is not a presentation of thromboembolic disease clinically. Index of suspicion is rather low. #12. Troponin leak of 0.043, possibly related to hypoxia #13. History of recent hospitalization for acute alcohol intoxication, falls and comminuted left mid clavicle fracture, with subsequent discharge to subacute rehab followed by discharge home #14. 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 History of perforated gastric ulcer #16. History of EtOH abuse #17. History of ADD, anxiety and depression #18. Nicotine dependence, in remission #19. History of prolonged QT with polymorphic ventricular tachycardia Recommendation: Continue present supportive care measures, discontinued sodium bicarb, cut down her IV fluid to 50 ML per hour, encourage oral intake and free water, continue to avoid nephrotoxic agents, continue to monitor renal profile on a daily basis and monitor urine output. Continue empiric antibiotics, transfer out of the ICU to a monitor bed on selective. Prognosis remains guarded. Critical care time is 33 minutes. Time with Patient: Greater than 30
--- NOTE | 2017-10-06 12:39 | ECHOF ---
Referral Reason:lv function MEASUREMENTS -------- HEIGHT: 185.4 cm WEIGHT: 88.5 kg BP: 151/114 RVIDd: 3.2 cm (< 3.3) IVSd: 0.9 cm (0.6 - 1.1) LVIDd: 5.2 cm (3.9 - 5.3) LVPWd: 1.1 cm (0.6 - 1.1) IVSs: 1.8 cm LVIDs: 2.6 cm LVPWs: 2.2 cm LAESV Index (A-L): 30.11 ml/m Ao Diam: 3.9 cm (2.0 - 3.7) AV Cusp: 2.6 cm (1.5 - 2.6) LA Diam: 3.6 cm (2.7 - 3.8) MV EXCURSION: 14.230 mm (> 18.000) MV EF SLOPE: 58 mm/s (70 - 150) EPSS: 1.4 cm MV E Jason: 0.62 m/s MV DecT: 184 ms MV A Jason: 0.78 m/s MV E/A Ratio: 0.79 AV maxP.22 mmHg AV meanP.01 mmHg AR PHT: 734 ms RAP: 5.00 mmHg RVSP: 14.73 mmHg FINDINGS -------- Sinus rhythm with extra systolic beats. This was a technically good study. The left ventricular size is normal. There is mild concentric left ventricular hypertrophy. Overa ll left ventricular systolic function is mildly impaired with, an EF between 45 - 50 %. The right ventricle is normal in size and function. LA is midly dilated 29-33ml/m2. The right atrium is normal in size. Aortic valve is trileaflet and is mildly thickened. There is mild aortic valve sclerosis. There i s mild aortic regurgitation. Peak/mean gradient across the Aortic Valve is 11.22mmHg / 5.01mmHg. The mitral valve leaflets are mildly thickened. Mild mitral annular calcification present. Mild m itral regurgitation is present. Mild tricuspid regurgitation present. The right ventricular systolic pressure, as measured by Doppl er, is 14.73mmHg. Pulmonic valve appears structurally normal. The aortic root is mildy dilated. Normal inferior vena cava with normal inspiratory collapse consistent with estimated right atrial pre ssure of 5 mmHg. The pericardium is normal. CONCLUSIONS -------- 1. Sinus rhythm with extra systolic beats. 2. This was a technically good study. 3. The left ventricular size is normal. 4. There is mild concentric left ventricular hypertrophy. 5. Overall left ventricular systolic function is mildly impaired with, an EF between 45 - 50 %. 6. The right ventricle is normal in size and function. 7. LA is midly dilated 29-33ml/m2. 8. The right atrium is normal in size. 9. Aortic valve is trileaflet and is mildly thickened. 10. There is mild aortic valve sclerosis. 11. There is mild aortic regurgitation. 12. Peak/mean gradient across the Aortic Valve is 11.22mmHg / 5.01mmHg. 13. The mitral valve leaflets are mildly thickened. 14. Mild mitral annular calcification present. 15. Mild mitral regurgitation is present. 16. Mild tricuspid regurgitation present. 17. The right ventricular systolic pressure, as measured by Doppler, is 14.73mmHg. 18. Pulmonic valve appears structurally normal. 19. The aortic root is mildy dilated. 20. Normal inferior vena cava with normal inspiratory collapse consistent with estimated right atrial pressure of 5 mmHg. 21. The pericardium is normal. CONFERENCE ASSISTANT: Cori Lema RDCS
--- NOTE | 2017-10-06 18:29 | P.PN ---
Progress Note - Text Progress Note Date: 10/06/17 DATE OF SERVICE: 10/06/2017 PRESENTING COMPLAINT: Alcohol withdrawal HISTORY OF PRESENT ILLNESS: 62-year-old male who was found totally disheveled in his house. EMS arrived and found the patient conscious alert hyperventilating anxious with mental status changes. Apartment staff had reported a foul odor coming from the patient's apartment the patient not been seen for a few days. Found sitting on his bed covered with feces and patient was unable to tell how long he was like that. Recently completed a 30 day rehab session. Denies any alcohol intake also hasn't been drinking very little water. Admitted for acute renal failure, severe metabolic acidosis, and acute delirium. INTERVAL HISTORY: 10/06/2017: Sitting up in bed sitter at the bedside. Patient still has a great deal of difficulty making conversation and answering simple straightforward questions. Is not quite is jittery as he was yesterday however there are long delays when answering questions. REVIEW OF SYSTEMS: Done for constitutional ,cardiovascular, GI, pulmonary with relevant findings as above. CURRENT MEDICATIONS PHYSICAL EXAM VITAL SIGNS: Temperature 97.6, pulse 53, respirations 24, oxygen saturation 98% on 2 L, blood pressure 103/75. GENERAL APPEARANCE: Sitting up in bed, somewhat lethargic. HENT: Normocephalic, JVD unable to assess. Mass not palpable. Oral cavity mucous membranes dry, external appearance of ears and nose normal. EYES:Pupils equal. Conjunctiva normal. RESPIRATORY: Respiratory effort creased. Lungs diminished with a course congested cough to auscultation. CARDIOVASCULAR: First and second sounds normal. No edema. ABDOMEN: Soft. Liver and spleen not palpable. No tenderness. No mass palpable. PSYCHIATRY: Alert and oriented x3. Mood and affect normal. INVESTIGATIONS: Hemoglobin 12.5, sodium 146, potassium 3.2, BUN 35, creatinine 1.20, ASSESSMENT: -Acute renal failure, probably a combination of prerenal acute tubular necrosis. Unclear what medication the patient was taking. -Severe metabolic acidosis probably from renal failure, present on admission. -Severe hypernatremia from free water deficit, patient has been not drinking at home he states, slow to respond -Acute pancreatitis in a patient that has a known history of alcohol abuse -Hyperbilirubinemia likely due to underlying liver disease -Hypercalcemia secondary to dehydration, resolved -Hyperphosphatemia probably secondary to renal failure which is more acute, resolved -Acute delirium, multifactorial present on admission, slow to respond -Acute chronic obstructive pulmonary disease and chronic nicotine dependence. -Chronic nicotine dependence patient is a smoker. -Peripheral artery disease. -Gastroesophageal reflux disease. -Essential hypertension. -Bipolar disorder. -Peripheral neuropathy. -Hyperglycemia. PLAN: Continue empiric antibiotics, monitor daily labs urine output decrease IV fluids to 50 mL an hour encourage oral intake and free water. We'll likely transfer patient to medical surgical floor later today. Plan of care discussed with the patient at bedside he is in agreement. ACTIVE DIRECTORY SPECIALIST statement: Patient was seen and examined by nurse practitioner Yancy Tatum and all elements of the case discussed with attending Dr. Bruce
[2017-10-06] MEDS: TAMSULOSIN 0.4 MG CAP.ER.24H PO SCH (20:26)
[2017-10-06] MEDS: traZODone HCL 50 MG TAB PO SCH (22:25)
[2017-10-06] MEDS: clonazePAM 0.5 MG TAB PO SCH (22:25)
--- NOTE | 2017-10-06 22:53 | PN ---
PROGRESS NOTE DATE OF SERVICE: 10/06/2017 ATTENDING NOTE: This patient was seen and examined by me. I discussed the case with the nurse practitioner Ms. Tatum. This is a patient admitted with multiple problems, including severe metabolic acidosis, severe hypernatremia, acute renal failure, acute delirium. Patient's actual numbers are greatly improved. Patient is looking better controlled, sitting up in his bed. Did eat a bit. PHYSICAL EXAMINATION: Temperature 97.6, pulse 53, respiration 24, blood pressure 103/75, pulse ox 98% on 2 L. Sitting up, more relaxed. Not jittery. LUNGS: Decreased breath sounds. Answering simple questions. INVESTIGATIONS: White count 7.2, hemoglobin 12.5, platelets 103. Blood gas showed pH of 7.41, sodium 146, potassium 3.2, BUN 35, creatinine 1.20. Bilirubin 1.5. ASSESSMENT: 1. Acute renal failure, acute tubular necrosis, with some improvement. 2. Severe metabolic acidosis from renal failure, now corrected. 3. Severe hypernatremia from free water deficit, improving. 4. Acute pancreatitis. 5. Acute delirium, multifactorial, slow to respond. 6. Acute chronic obstructive pulmonary disease exacerbation in a smoker. PLAN: Patient is currently on IV ceftriaxone, Klonopin, Catapres, Lovenox. IV fluid is down to 50 mL/hour. Await input from Psychiatry. Prognosis is guarded. [employer] is already involved. Will follow. MMODL / IJN: [id number] /
[2017-10-07 05:04] LABS: Basophils % (A) 1 %; Eosinophils # (A) 0.2 k/uL (0-0.7); Eosinophils % (A) 3 %; HCT 32.3 % (39.0-53.0); HGB 10.9 gm/dL (13.0-17.5); Lymphocytes # (A) 1.6 k/uL (1.0-4.8); Lymphocytes % (A) 34 %; MCH 34.2 pg (25.0-35.0); MCHC 33.7 g/dL (31.0-37.0); MCV 101.6 fL (80.0-100.0); Macrocytosis Slight; Mean Platelet Volume 7.6; Monocytes # (A) 0.2 k/uL (0-1.0); Monocytes % (A) 5 %; Neutrophils # (A) 2.7 k/uL (1.3-7.7); Neutrophils % (A) 56 %; RBC 3.18 m/uL (4.30-5.90); RDW 12.9 % (11.5-15.5); WBC 4.9 k/uL (3.8-10.6)
--- NOTE | 2017-10-07 05:14 | CONS ---
CONSULTATION DATE OF CONSULTATION: 10/06/2017 PURPOSE FOR CONSULTATION: Evaluate for altered mental status and history of alcohol dependence/abuse. HISTORY OF PRESENT ILLNESS: The patient is a 62-year-old male. He was admitted after being found at home. He was in a confused state. He was found in his bed covered in feces. He was assessed as being quite dehydrated. He had an admission to this facility on September 07 apparently for alcohol-related issues. There are no reports of drinking since that admission. On discharge September 10, he went to [facility] apparently for about 3 weeks and then has been home. He lives on his own. Currently, he is assessed as having acute renal failure, severe metabolic acidosis, severe hypernatremia, and acute delirium. Psychotropic medications that he has been prescribed recently include Celexa 40 mg a day, Ativan 1 mg 4 times a day p.r.n., Klonopin 1 mg 3 times a day and trazodone 100 mg at bedtime. According to nursing, he has been doing fairly well as far as mood and behavior. His orientation fluctuates. Some of the time he is able to provide some basic information about current circumstances at other times not. He is noted to have hallucinations though again nothing that is persistent. According to progress note of Dr. Ruiz from today, family indicated that he had just returned from [facility] to his home on about October 01. They expressed concern that he may have relapsed to drinking. His alcohol level on admission was negative. Since admission, the patient has run some elevated blood pressures with his highest being 213/132. Most pressures have been significantly lower. He has been receiving Ativan p.r.n. for acute alcohol withdrawal risk. He has had an elevated pulse although today his pulse is been low in the 50 range. MENTAL STATUS: The patient was lying in bed. He was sleeping, but arousable. He gave some eye contact. He answered a few questions with brief responses. He did not say a lot. He had a somewhat constricted affect. He had a calm manner. He did not appear to be distressed. When I asked him what month it was, he took a little bit to respond though was able to say September. He was able to say the year was "18". He thought it was in the middle of September. He did make an effort to answer other formal cognitive questions. ASSESSMENT: This 62-year-old male is diagnosed with delirium. Some of his encephalopathy may relate to acute alcohol issues, though the specifics of that are not clear. He may well have some underlying dementia. At this point, I will reduce his Klonopin to 0.5 mg 3 times a day and reduce his trazodone from 100 mg down to 50 mg at bedtime. He will continue to be monitored for acute alcohol withdrawal issues. His current plan for managing possible alcohol withdrawal seems appropriate. I will continue to follow. VALENTINE / LAKEISHA: [id number] /
[2017-10-07] MEDS: HYDROcodone/APAP 10-325MG 1 EACH TAB PO PRN ×3 (05:20→18:28)
[2017-10-07] MEDS: SODIUM CHLORIDE 0.9% 1,000 ML IV SCH (05:21)
[2017-10-07 05:26] LABS: Anion Gap 7 mmol/L; Blood Urea Nitrogen 21 mg/dL (9-20); Calcium 8.7 mg/dL (8.4-10.2); Carbon Dioxide 26 mmol/L (22-30); Chloride 107 mmol/L (98-107); Glucose 93 mg/dL (74-99); Potassium 3.6 mmol/L (3.5-5.1); Sodium 140 mmol/L (137-145)
[2017-10-07 05:39] LABS: Platelet Count 84 k/uL (150-450)
[2017-10-07] MEDS ORDERED: Potassium Replacement Protocol 1 EACH MISC MISCELLANE PRN (06:16)
[2017-10-07] MEDS ORDERED: POTASSIUM CHLORIDE ER 20 MEQ TAB.ER PO SCH (07:00)
[2017-10-07] MEDS: ENOXAPARIN 40 MG/0.4 ML SYRINGE SQ SCH (08:30)
[2017-10-07] MEDS: CITALOPRAM HYDROBROMIDE 20 MG TAB PO SCH (08:30)
[2017-10-07] MEDS: cloNIDine HCL 0.1 MG TAB PO SCH ×3 (08:31→21:57)
[2017-10-07] MEDS: PANTOPRAZOLE 40 MG TABLET PO SCH (08:31)
[2017-10-07] MEDS: clonazePAM 0.5 MG TAB PO SCH ×3 (08:39→21:59)
[2017-10-07] MEDS: cefTRIAXone IN SWFI 1,000 MG/10 ML SYRINGE IVP SCH (08:40)
[2017-10-07] MEDS: METOPROLOL TARTRATE 25 MG TAB PO SCH (09:39)
--- NOTE | 2017-10-07 11:46 | P.PN ---
Subjective Patient is seen in follow-up for acute kidney injury. Renal function has improved with creatinine down to 1.0 today. Patient's currently sitting up in chair. No vomiting. Does have some loose bowel movements. Tolerating oral intake. Denies chest pain or shortness of breath. Hemodynamically stable. Vital signs are stable. General: The patient appeared well nourished and normally developed. HEENT: Head exam is unremarkable. Neck is without jugular venous distension. LUNGS: Lungs are clear to auscultation and percussion. Breath sounds decreased. HEART: Rate and Rhythm are regular. First and second heart sounds normal. No murmurs, rubs or gallops. ABDOMEN: Abdominal exam reveals normal bowel sounds. Non-tender and non- distended. No evidence of peritonitis. EXTREMITITES: No clubbing, cyanosis, or edema. Objective - Vital Signs Vital signs: Vital Signs Temp 98.3 F 10/07/17 08:26 Pulse 61 10/07/17 08:26 Resp 14 10/07/17 08:26 BP 112/65 10/07/17 08:26 Pulse Ox 95 10/07/17 08:26 Intake & Output 10/06/17 10/07/17 10/07/17 18:59 06:59 18:59 Intake Total 750 600 Output Total 285 400 Balance 465 200 Weight 88.7 kg 92 kg Intake: Intake, IV Titration 750 600 Amount Dextrose 5% in Water 1, 600 000 ml @ 150 mls/hr IV . Q7H10M INGA with Sodium Bicarb (1 Meq/ml) 75 ml Rx#:[id number] Sodium Chloride 0.9% 1, 150 600 000 ml @ 50 mls/hr IV . Q20H INGA Rx#:[id number] Output: Urine 285 400 Other: Voiding Method Indwelling Catheter Urinal # Voids 2 1 # Bowel Movements 3 2 - Labs CBC & Chem 7: 10/07/17 04:33 10/07/17 04:33 Labs: Abnormal Lab Results - Last 24 Hours (Table) 10/07/17 10/07/17 Range/Units 04:33 04:33 RBC 3.18 L (4.30-5.90) m/uL Hgb 10.9 L (13.0-17.5) gm/dL Hct 32.3 L (39.0-53.0) % MCV 101.6 H (80.0-100.0) fL Plt Count 84 L (150-450) k/uL BUN 21 H (9-20) mg/dL Microbiology - Last 24 Hours (Table) 10/05/17 10:12 Blood Culture - Preliminary Blood No Growth after 24 hours 10/05/17 10:29 Urine Culture - Final Urine,Clean Catch Assessment and Plan Plan: Assessment: #1. Nonoliguric acute kidney injury mostly prerenal from poor oral intake and diarrhea. Creatinine was 2.1 on admission and is down to 1.0 today. #2. Severe metabolic acidosis secondary to acute kidney injury. Improved. Volatile screen negative - s/p 1 dose of fomepizole. #3. Alcohol abuse. #4. Hypernatremia secondary to lack of oral water intake. Improved. #5. Tachycardia upon admission. Now his heart rate is in the 50s. Cardiology following. #6. Acute pancreatitis. #7. Hypokalemia due to poor oral intake and intracellular shifting from sodium bicarbonate. Magnesium replete. Improved. Plan: Continue normal saline to be run at 50 mL an hour. Encouraged oral intake. Avoid nephrotoxic agents and hypotensive episodes. Repeat electrolytes in the morning.
[2017-10-07] MEDS: FOLIC ACID 1 MG TAB PO SCH (12:09)
[2017-10-07] MEDS: MULTIVITAMINS, THERA 1 EACH TAB PO SCH (12:09)
[2017-10-07] MEDS: THIAMINE 100 MG TAB PO SCH ×2 (12:09→16:01)
--- NOTE | 2017-10-07 12:12 | P.PN ---
Subjective Progress Note Date: 10/07/17 Principal diagnosis: Acute kidney injury and severe metabolic acidosis. Valentin is a 62-year-old white male patient, who was recently discharged from the hospital on 09/10/2017 after being hospitalized for alcohol intoxication, gait dysfunction with falls, clavicular fracture to the [facility] where he was undergoing rehabilitation. Patient had completed his therapy course at the [facility] on the [place] and was discharged home 5 days ago. This morning on 2017 at 1003 patient was brought in per EMS after being found down unresponsive. Patient's family believes patient had relapsed after returning home from the rehab and had been drinking again. On presentation patient was in SVT with a rate of 233 bpm, hypertensive with a blood pressure as high as 213 /132, hypoxic with a pulse ox of 74% on room air. Patient was placed on supplemental oxygen, he was fluid resuscitated with 4 L of 0.9 normal saline, patient's heart rate responded nicely to IV resuscitation. In addition patient received Ativan and Valium for EtOH withdrawal. Venous blood gas showed pH of 6.94, pCO2 39, and bicarb of 8 on admission. Patient had evidence of leukocytosis with WBC of 18.3, d-dimer was elevated at 1.41, there was evidence of acute kidney injury with a BUN of 43 and creatinine of 2.10. Serum finds was found to be elevated at 12.4, total bilirubin was up to 2.1, lipase was elevated at 335, TSH was within normal limits. Serum alcohol was less than 10, acetaminophen was less than 10, salicylates was less than 1, ammonia level was elevated at 186, proBNP was 1290, drug screen was negative, serum acetone was negative, urinalysis showed cloudy urine with 3+ protein 3+ glucose, 1+ ketones , moderate blood negative for nitrates and positive for small amount of leukocyte Estrace, urine WBC was 23. Chest x-ray showed no acute pulmonary process. Blood and urine cultures were collected and sent, and are pending at this time. Patient was given IV Rocephin, and admitted to the intensive care for further management. At the time of my evaluation, patient's seen in the intensive care, awake, alert, oriented to self, he knew he was in the hospital and he knew who the president was. His verbal responses are somewhat slow. He denies any pain, he denies any respiratory difficulty. He is currently in sinus tachycardia with a rate of 101 10/08/2018 BPM, with frequent PACs. He remains somewhat hypertensive with a blood pressure of 178/113, his home antihypertensives were restarted, he continues on 2 L per nasal cannula with O2 sat at 98%. His respirations are even and nonlabored, his lung sounds are diminished, no rhonchi or wheezes auscultated. He has a chronic wound on his right lower extremity, he is missing his third, fourth and fifth toes, including the metatarsals. There is a necrotic area on the tip of his left third toe. Patient was reevaluated today on 10/06/2017, surprisingly the patient is doing better than expected considering his initial presentation. Patient responded and continues to respond well to fluid boluses and to sodium bicarb drip. As a matter of fact his bicarb is basically down normal. Patient presented with a bicarb of 7. And it is 27 today. Patient is less confused, and seems to be much more appropriate today compared to yesterday. Today I have discontinued his sodium bicarb, and discontinued. fomepizole. Apparently he received 1 dose. And his volatile screen came back negative. Today I plan to advance his diet, and I plan to transfer the patient out of the ICU with continuous monitoring for alcohol withdrawal. Patient remains on the protocol. Patient was reevaluated today on 10/07/2017, continues to improve steadily, patient is calm, in no distress, his creatinine has improved down to 1, patient is in no distress, seems to be a bit more appropriate compared to baseline on admission. WBC count is 4.9 hemoglobin is 10.9. Bicarb is 26 renal profile is back to normal. Objective - Vital Signs Vital signs: Vital Signs Temp 98.3 F 10/07/17 08:26 Pulse 61 10/07/17 08:26 Resp 14 10/07/17 08:26 BP 112/65 10/07/17 08:26 Pulse Ox 95 10/07/17 08:26 Intake & Output 10/06/17 10/07/17 10/07/17 18:59 06:59 18:59 Intake Total 750 600 Output Total 285 400 Balance 465 200 Weight 88.7 kg 92 kg Intake: Intake, IV Titration 750 600 Amount Dextrose 5% in Water 1, 600 000 ml @ 150 mls/hr IV . Q7H10M INGA with Sodium Bicarb (1 Meq/ml) 75 ml Rx#:[id number] Sodium Chloride 0.9% 1, 150 600 000 ml @ 50 mls/hr IV . Q20H INGA Rx#:[id number] Output: Urine 285 400 Other: Voiding Method Indwelling Catheter Urinal # Voids 2 1 # Bowel Movements 3 2 - Exam - Constitutional General appearance: average body habitus, cooperative, no acute distress - EENT Eyes: PERRLA, normal appearance ENT: NA/AT Ears: bilateral: normal - Neck Neck: no lymphadenopathy Carotids: bilateral: upstroke normal Thyroid: bilateral: normal size - Respiratory Respiratory: bilateral: diminished - Cardiovascular Rhythm: regularly irregular Heart sounds: normal: S1, S2 leg Peripheral Edema: absent: None dorsalis pedis Peripheral Pulses: bilateral: Normal - Gastrointestinal General gastrointestinal: no organomegaly, soft, no tenderness - Integumentary Integumentary: normal turgor, pale - Neurologic Neurologic: CNII-XII intact - Musculoskeletal Patient has right foot third, fourth and fifth digit amputation, along with the metatarsal amputation. Left foot third toe has evidence of small area of necrosis on the tip of the toe Musculoskeletal: strength equal bilaterally - Psychiatric Alert and oriented 2, to place and self. - Labs CBC & Chem 7: 10/07/17 04:33 10/07/17 04:33 Labs: Abnormal Lab Results - Last 24 Hours (Table) 10/07/17 10/07/17 Range/Units 04:33 04:33 RBC 3.18 L (4.30-5.90) m/uL Hgb 10.9 L (13.0-17.5) gm/dL Hct 32.3 L (39.0-53.0) % MCV 101.6 H (80.0-100.0) fL Plt Count 84 L (150-450) k/uL BUN 21 H (9-20) mg/dL Microbiology - Last 24 Hours (Table) 10/05/17 10:12 Blood Culture - Preliminary Blood No Growth after 24 hours 10/05/17 10:29 Urine Culture - Final Urine,Clean Catch Assessment and Plan Assessment: #1. Acute metabolic encephalopathy #2. Acute supraventricular tachycardia upon initial presentation #3. Subacute pancreatitis #4. Acute kidney injury, present on admission, BUN of 43, and creatinine of 2.10 #5. Acute hypernatremia, secondary to free water deficit related to dehydration #6. Acute anion gap metabolic acidosis secondary to acute kidney injury. #7. Hyperphosphatemia, related to acute kidney failure #8. Elevated bilirubin, possibly related to underlying liver disease #9. SVT, with a rate of 230 BPM on admission, recovered with fluid resuscitation and administration of benzodiazepines for EtOH withdrawal #10. Elevated ammonia level, 186 on admission, we'll initiate lactulose. #11. Elevated d-dimer of 1.41, nonspecific, no need for workup for thromboembolic disease, the presentation is not a presentation of thromboembolic disease clinically. Index of suspicion is rather low. #12. Troponin leak of 0.043, possibly related to hypoxia #13. History of recent hospitalization for acute alcohol intoxication, falls and comminuted left mid clavicle fracture, with subsequent discharge to subacute rehab followed by discharge home #14. 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 History of perforated gastric ulcer #16. History of EtOH abuse #17. History of ADD, anxiety and depression #18. Nicotine dependence, in remission #19. History of prolonged QT with polymorphic ventricular tachycardia Recommendation: Continue present treatment plan, will transfer out of ICU once a bed is available on medical surgical floor. Discharge planning in the next 24 hours. Time with Patient: Less than 30
--- NOTE | 2017-10-07 12:46 | P.PN ---
Subjective Progress Note Date: 10/07/17 Principal diagnosis: Unresponsiveness Is a 62-year-old gentleman who was recently discharged from the hospital after being admitted for alcohol intoxication and frequent falls. He did go from here to [facility] on the [place] where he underwent rehab. After completing his course here the patient was discharged home. He was brought back to the hospital being found unresponsive, family believes that after returning home he had been drinking again. On presentation here patient was found to be in supraventricular tachycardia with a rate of 233, hypertensive with a blood pressure of 213/132, hypoxic with pulse ox of 74% on room air. Patient received Ativan and Valium for EtOH withdrawal. Patient was seen in consultation by Dr. VC Sparrow yesterday. Echocardiogram with Doppler study was performed which revealed an ejection fraction of 45-50%. Patient was seen this morning in the intensive care unit, sitting up in the chair at bedside. Denied any chest discomfort, he was alert and oriented. Blood pressure 112/60 with a heart rate in the 60s, 95% on room air. Sodium 140, potassium 3.6, BUN 21, creatinine 1.0. Influenza A and B- Objective - Vital Signs Vital signs: Vital Signs Temp 98.3 F 10/07/17 08:26 Pulse 61 10/07/17 08:26 Resp 14 10/07/17 08:26 BP 112/65 10/07/17 08:26 Pulse Ox 95 10/07/17 08:26 Intake & Output 10/06/17 10/07/17 10/07/17 18:59 06:59 18:59 Intake Total 750 600 Output Total 285 400 Balance 465 200 Weight 88.7 kg 92 kg Intake: Intake, IV Titration 750 600 Amount Dextrose 5% in Water 1, 600 000 ml @ 150 mls/hr IV . Q7H10M INGA with Sodium Bicarb (1 Meq/ml) 75 ml Rx#:[id number] Sodium Chloride 0.9% 1, 150 600 000 ml @ 50 mls/hr IV . Q20H INGA Rx#:[id number] Output: Urine 285 400 Other: Voiding Method Indwelling Catheter Urinal # Voids 2 1 # Bowel Movements 3 2 - Exam PHYSICAL EXAMINATION: HEENT: Head is atraumatic, normocephalic. Pupils equal, round. Neck is supple. There is no elevated jugular venous pressure. HEART EXAMINATION: Heart S1, S2 normal. No murmur or gallop heard. CHEST EXAMINATION: Lungs reveal scattered coarse wheezing throughout. ABDOMEN: Soft, nontender. Bowel sounds are heard. No organomegaly noted. EXTREMITIES: One plus peripheral pulses, patient has amputation on the right foot of the third fourth and fifth digit, along with the metatarsal amputation, left foot has small area of necrosis are noted on the tip of the third toe. NEUROLOGIC patient is awake, alert and oriented -3. . - Labs CBC & Chem 7: 10/07/17 04:33 10/07/17 04:33 Labs: Abnormal Lab Results - Last 24 Hours (Table) 10/07/17 10/07/17 Range/Units 04:33 04:33 RBC 3.18 L (4.30-5.90) m/uL Hgb 10.9 L (13.0-17.5) gm/dL Hct 32.3 L (39.0-53.0) % MCV 101.6 H (80.0-100.0) fL Plt Count 84 L (150-450) k/uL BUN 21 H (9-20) mg/dL Microbiology - Last 24 Hours (Table) 10/05/17 10:12 Blood Culture - Preliminary Blood No Growth after 24 hours 10/05/17 10:29 Urine Culture - Final Urine,Clean Catch Assessment and Plan Plan: Assessment and plan #1. Altered mental status, initially thought to be related to alcohol intoxication however, serum alcohol was negative at less than 10. Mental status is likely due to metabolic encephalopathy #2. Acute systemic inflammatory response rule out underlying sepsis, possibly related to acute pancreatitis, patient presented with SVT with a heart rate in the 230 BPM, leukocytosis, altered mental status, acute kidney injury #3. Mild pancreatitis possibly secondary to EtOH use, lipase of 335 #4. Acute kidney injury, present on admission, BUN of 43, and creatinine of 2.10, creatinine this morning 1.0. #5. SVT, with a rate of 230 BPM on admission, recovered with fluid resuscitation and administration of benzodiazepines for EtOH withdrawal #6. Troponin abnormality, likely secondary to oxygen supply and demand mismatch #7. History of recent hospitalization for acute alcohol intoxication, falls and comminuted left mid clavicle fracture, with subsequent discharge to subacute rehab followed by discharge home #8. Amputation of right third, fourth and fifth digits on the right through the metatarsal heads, secondary to peripheral vascular disorder #9. History of perforated gastric ulcer #10. History of EtOH abuse #11. History of ADD, anxiety and depression #12. Nicotine dependence, in remission Echocardiogram with Doppler study was performed which revealed an ejection fraction of 45-50%. From cardiology's perspective we will recommend to continue the patient on his current medications. We will follow him along with you now on an as-needed basis only, please don't hesitate to call with any questions. DNP note has been reviewed, I agree with a documented findings and plan of care. Patient was seen and examined.
--- NOTE | 2017-10-07 15:54 | CDI ---
Last Revision, August 2017 Documentation Clarification Form Date: 10/06/2017 4:05:00 PM From: Charmaine Waters Admit Date: 10/05/2017 11:43:00 AM Patient Name: Valentin Dale Visit Number: [id number] Discharge Date: ATTENTION: The Clinical Documentation Specialists (CDI) and [facility] Coding Staff appreciate your assistance in clarifying documentation. Please respond to the clarification below the line at the bottom and electronically sign. The CDI & [facility] Coding staff will review the response and follow-up if needed. Please note: Queries are made part of the Legal Health Record. If you have any questions, please contact the author of this message via ITS. Dr. Flavia Ruiz Documentation and location in medical record included: ER evaluation: Found unresponsive, was anxious, lethargic, in distress. hypoxic with pulse ox of 74 % on room air. History/Risk Factors: GERD, Hypertension, Alcoholism, Peripheral neuropathy, COPD, Bipolar disorder Tobacco use: current cigarette use Clinical Indicators: lung with diminished breath sounds, prolonged expiration, respiratory effort increased. Vital signs: on admission: 213/132 200 20 74 % on non-rebreather ABG/CBG: pH 6.94 pCO2 39 pHCO3 8, Treatment: BIPAP, to Non-Rebreather, to NC Monitor O2 Sat's (titrate to NC In your professional opinion, can you please clarify if these findings signify one of the following conditions? Acuity: Acute Chronic Acute on Chronic Specificity: Respiratory Failure, further specify (if known): With hypercapnia? With hypoxia? Respiratory Distress Respiratory Insufficiency Other Diagnosis, please specify Unable to determine Please continue to document in your progress notes and discharge summary in order to capture severity of illness and risk of mortality. Include clinical findings that support your diagnosis. MTDD
--- NOTE | 2017-10-07 18:52 | P.PN ---
Progress Note - Text Progress Note Date: 10/07/17 Upon presentation, patient was noted to have low pulse oximeter, at the same time he was experiencing profound metabolic acidosis, and significant tachycardia felt to be supraventricular tachycardia in nature, hence I believe the patient presented with acute hypoxic respiratory failure secondary to cardiac arrhythmia and profound anion gap metabolic acidosis. With poor organ perfusion.
[2017-10-07 18:56] VITALS: RESP 18
[2017-10-07] MEDS: TAMSULOSIN 0.4 MG CAP.ER.24H PO SCH (21:56)
[2017-10-07] MEDS: traZODone HCL 50 MG TAB PO SCH (21:57)
--- NOTE | 2017-10-07 22:00 | P.PN ---
Progress Note - Text Progress Note Date: 10/07/17 DATE OF SERVICE: 10/07/2017 PRESENTING COMPLAINT: Alcohol withdrawal HISTORY OF PRESENT ILLNESS: 62-year-old male who was found totally disheveled in his house. EMS arrived and found the patient conscious alert hyperventilating anxious with mental status changes. Apartment staff had reported a foul odor coming from the patient's apartment the patient not been seen for a few days. Found sitting on his bed covered with feces and patient was unable to tell how long he was like that. Recently completed a 30 day rehab session. Denies any alcohol intake also hasn't been drinking very little water. Admitted for acute renal failure, severe metabolic acidosis, and acute delirium. INTERVAL HISTORY: 10/07/2017: Sitting up in a chair at the bedside. More awake and more alert able to communicate much more clearly. Less jittery. Had some bradycardia held his beta steven. Appetite improving eating between 40 and 50% of his meals. Up with assistance and walker. Quite shaky when he walks. Last BM 10/07/2017. 10/06/2017: Sitting up in bed sitter at the bedside. Patient still has a great deal of difficulty making conversation and answering simple straightforward questions. Is not quite is jittery as he was yesterday however there are long delays when answering questions. REVIEW OF SYSTEMS: Done for constitutional ,cardiovascular, GI, pulmonary with relevant findings as above. CURRENT MEDICATIONS [place], Rocephin, Celexa, Klonopin, Catapres, Lovenox, folic acid, Ativan, multivitamin, Protonix, Flomax, trazodone PHYSICAL EXAM VITAL SIGNS: Temperature 98.3, pulse 61, respiratory rate 14, blood pressure 112/65, oxygen saturation 95% on room air GENERAL APPEARANCE: Sitting up in the chair in the bedside, more alert and relaxed. HENT: Normocephalic, JVD unable to assess. Mass not palpable. Oral cavity mucous membranes dry, external appearance of ears and nose normal. EYES:Pupils equal. Conjunctiva normal. RESPIRATORY: Respiratory effort creased. Lungs diminished with a course congested cough to auscultation. CARDIOVASCULAR: First and second sounds normal. No edema. ABDOMEN: Soft. Liver and spleen not palpable. No tenderness. No mass palpable. PSYCHIATRY: Able to answer simple questions, mood and affect less jittery. EXTREMITY: Right foot third and fourth toes are gone. Left foot second toe has plantar dry gangrene INVESTIGATIONS: Hemoglobin 10.9, BUN 21, creatinine 1.00. ASSESSMENT: -Acute renal failure, acute tubular necrosis, with some improvement. -Severe metabolic acidosis probably from renal failure, now corrected -Severe hypernatremia from free water deficit, patient has been not drinking at home he states, improving -Acute pancreatitis in a patient that has a known history of alcohol abuse -Acute delirium secondary to metabolic encephalopathy related to alcohol use issues. -Hyperbilirubinemia likely due to underlying liver disease -Hypercalcemia secondary to dehydration, resolved -Hyperphosphatemia probably secondary to renal failure which is more acute, resolved -Acute delirium, multifactorial present on admission, slow to respond -Acute chronic obstructive pulmonary disease and chronic nicotine dependence. -Chronic nicotine dependence patient is a smoker. -Peripheral artery disease. -Gastroesophageal reflux disease. -Essential hypertension. -Bipolar disorder. -Peripheral neuropathy. -Hyperglycemia. PLAN: Continue empiric antibiotics, monitor daily labs. Continue normal saline at 50 mL an hour. Psychiatry adjusted his Klonopin and trazodone. Social work involved, will likely have one of the family members obtain guardianship. Plan of care discussed with the patient at bedside he is in agreement. CABIN EQUIPMENT SUPERVISOR statement: Patient was seen and examined by nurse practitioner Yancy Tatum and all elements of the case discussed with attending Dr. Bruce
[2017-10-08] MEDS: HYDROcodone/APAP 10-325MG 1 EACH TAB PO PRN ×4 (02:21→22:52)
[2017-10-08] MEDS: SODIUM CHLORIDE 0.9% 1,000 ML IV SCH ×2 (02:37→22:53)
--- NOTE | 2017-10-08 06:26 | PN ---
PROGRESS NOTE DATE OF SERVICE: 10/07/2017 ATTENDING NOTE: The patient was seen and examined by me. Discussed with nurse practitioner, Ms. Tatum. This is a patient who presented with incomplete delirium, metabolic encephalopathy, severe electrolyte abnormality. Doing much better today. I saw the patient earlier today in the ICU. The patient more communicative. Did eat a little bit better. PHYSICAL EXAMINATION: On examination, afebrile, pulse 61, respiration 14, blood pressure 112/65. LUNGS: Decreased breath sounds. PSYCH: Able to carry out a better conversation. INVESTIGATION: White count 4.9, hemoglobin 10.9. Potassium 3.6. ASSESSMENT: 1. Acute renal failure with acute tubular necrosis with near resolution. 2. Severe metabolic acidosis, improved. 3. Hypernatremia, improved. 4. Acute delirium with metabolic encephalopathy, improving. 5. Chronic obstructive pulmonary disease exacerbation. 6. Multiple other medical issues. PLAN: Patient gently getting hydrated. He is on IV ceftriaxone. Other medications to continue. I spoke to the social and human services assistant, case briefer. The patient's sister started to get guardianship. The patient apparently has not been drinking at home. It Is unclear what precipitated this entire event. Continue current medication and treatment plan. Gentle hydration. Encourage oral intake. Will follow. MMODL / IJN: [id number] /
[2017-10-08 08:18] LABS: Anion Gap 5 mmol/L; Blood Urea Nitrogen 15 mg/dL (9-20); Calcium 8.8 mg/dL (8.4-10.2); Carbon Dioxide 28 mmol/L (22-30); Chloride 108 mmol/L (98-107); Glucose 108 mg/dL (74-99); Potassium 3.9 mmol/L (3.5-5.1); Sodium 141 mmol/L (137-145)
[2017-10-08] MEDS: cefTRIAXone IN SWFI 1,000 MG/10 ML SYRINGE IVP SCH (08:31)
[2017-10-08] MEDS: clonazePAM 0.5 MG TAB PO SCH ×3 (08:31→21:47)
[2017-10-08] MEDS: CITALOPRAM HYDROBROMIDE 20 MG TAB PO SCH (08:31)
[2017-10-08] MEDS: PANTOPRAZOLE 40 MG TABLET PO SCH (08:32)
[2017-10-08] MEDS: ENOXAPARIN 40 MG/0.4 ML SYRINGE SQ SCH (08:32)
[2017-10-08] MEDS: cloNIDine HCL 0.1 MG TAB PO SCH ×3 (08:32→21:33)
--- NOTE | 2017-10-08 10:48 | P.PN ---
Subjective Progress Note Date: 10/08/17 Principal diagnosis: Acute hypoxic respiratory failure secondary to cardiac arrhythmia and profound anion gap metabolic acidosis with poor organ perfusion. Valentin is a 62-year-old white male patient, who was recently discharged from the hospital on 09/10/2017 after being hospitalized for alcohol intoxication, gait dysfunction with falls, clavicular fracture to the [facility] on [facility] where he was undergoing rehabilitation. Patient had completed his therapy course at the [facility] on [facility] and was discharged home 5 days ago. This morning on 2017 at 1003 patient was brought in per EMS after being found down unresponsive. Patient's family believes patient had relapsed after returning home from the rehab and had been drinking again. On presentation patient was in SVT with a rate of 233 bpm, hypertensive with a blood pressure as high as 213 /132, hypoxic with a pulse ox of 74% on room air. Patient was placed on supplemental oxygen, he was fluid resuscitated with 4 L of 0.9 normal saline, patient's heart rate responded nicely to IV resuscitation. In addition patient received Ativan and Valium for EtOH withdrawal. Venous blood gas showed pH of 6.94, pCO2 39, and bicarb of 8 on admission. Patient had evidence of leukocytosis with WBC of 18.3, d-dimer was elevated at 1.41, there was evidence of acute kidney injury with a BUN of 43 and creatinine of 2.10. Serum finds was found to be elevated at 12.4, total bilirubin was up to 2.1, lipase was elevated at 335, TSH was within normal limits. Serum alcohol was less than 10, acetaminophen was less than 10, salicylates was less than 1, ammonia level was elevated at 186, proBNP was 1290, drug screen was negative, serum acetone was negative, urinalysis showed cloudy urine with 3+ protein 3+ glucose, 1+ ketones , moderate blood negative for nitrates and positive for small amount of leukocyte Estrace, urine WBC was 23. Chest x-ray showed no acute pulmonary process. Blood and urine cultures were collected and sent, and are pending at this time. Patient was given IV Rocephin, and admitted to the intensive care for further management. At the time of my evaluation, patient's seen in the intensive care, awake, alert, oriented to self, he knew he was in the hospital and he knew who the president was. His verbal responses are somewhat slow. He denies any pain, he denies any respiratory difficulty. He is currently in sinus tachycardia with a rate of 101 10/08/2018 BPM, with frequent PACs. He remains somewhat hypertensive with a blood pressure of 178/113, his home antihypertensives were restarted, he continues on 2 L per nasal cannula with O2 sat at 98%. His respirations are even and nonlabored, his lung sounds are diminished, no rhonchi or wheezes auscultated. He has a chronic wound on his right lower extremity, he is missing his third, fourth and fifth toes, including the metatarsals. There is a necrotic area on the tip of his left third toe. Patient was reevaluated today on 10/06/2017, surprisingly the patient is doing better than expected considering his initial presentation. Patient responded and continues to respond well to fluid boluses and to sodium bicarb drip. As a matter of fact his bicarb is basically down normal. Patient presented with a bicarb of 7. And it is 27 today. Patient is less confused, and seems to be much more appropriate today compared to yesterday. Today I have discontinued his sodium bicarb, and discontinued. fomepizole. Apparently he received 1 dose. And his volatile screen came back negative. Today I plan to advance his diet, and I plan to transfer the patient out of the ICU with continuous monitoring for alcohol withdrawal. Patient remains on the protocol. Patient was reevaluated today on 10/07/2017, continues to improve steadily, patient is calm, in no distress, his creatinine has improved down to 1, patient is in no distress, seems to be a bit more appropriate compared to baseline on admission. WBC count is 4.9 hemoglobin is 10.9. Bicarb is 26 renal profile is back to normal. The patient is seen again today 10/08/2017 on the regular medical floor. He is awake and alert in no acute distress. He denies any worsening shortness of breath, cough or congestion. He is maintaining good O2 saturations in the high 90s on room air. His been afebrile. Hemodynamically stable. No chest pain or palpitations. Blood and urine cultures revealed no growth. Sodium 141, potassium 3.9, chloride 108 and a CO2 of 28. Objective - Vital Signs Vital signs: Vital Signs Temp 98.1 F 10/08/17 07:00 Pulse 67 02/01/18 07:00 Resp 18 10/08/17 07:00 BP 141/84 10/08/17 07:00 Pulse Ox 98 10/08/17 07:00 Intake & Output 10/07/17 10/08/17 10/08/17 18:59 06:59 18:59 Intake Total 1000 1280 Output Total 750 2600 Balance 250 -1320 Intake: Intake, IV Titration 500 Amount Sodium Chloride 0.9% 1, 500 000 ml @ 50 mls/hr IV . Q20H [facility] Rx#:[id number] Oral 500 1280 Output: Urine 750 2600 Other: Voiding Method Urinal Urinal - Exam GENERAL EXAM: Alert, active, comfortable in no apparent distress. HEAD: Normocephalic. EYES: Normal reaction of pupils, equal size. NOSE: Clear with pink turbinates. THROAT: No erythema or exudates. NECK: No masses, no JVD. CHEST: No chest wall deformity. LUNGS: Equal air entry with no crackles, wheeze, rhonchi or dullness. CVS: S1 and S2 normal with no audible murmur, regular rhythm. ABDOMEN: No hepatosplenomegaly, normal bowel sounds, no guarding or rigidity. SPINE: No scoliosis or deformity SKIN: No rashes CENTRAL NERVOUS SYSTEM: No focal deficits, tone is normal in all 4 extremities. EXTREMITIES: There is no peripheral edema. No clubbing, no cyanosis. Peripheral pulses are intact. - Labs CBC & Chem 7: 10/07/17 04:33 10/08/17 07:29 Labs: Abnormal Lab Results - Last 24 Hours (Table) 10/08/17 Range/Units 07:29 Chloride 108 H (98-107) mmol/L Glucose 108 H (74-99) mg/dL Microbiology - Last 24 Hours (Table) 10/05/17 10:12 Blood Culture - Preliminary Blood No Growth after 48 hours Assessment and Plan Assessment: Impression: #1. Acute metabolic encephalopathy secondary to acute hypoxic respiratory failure secondary to cardiac arrhythmia and profound anion gap metabolic acidosis with poor organ perfusion. #2. Acute supraventricular tachycardia upon initial presentation #3. Subacute pancreatitis #4. Acute kidney injury, present on admission, BUN of 43, and creatinine of 2.10. Recovered, current creatinine 0.95. #5. Acute hypernatremia, secondary to free water deficit related to dehydration. Recovered current sodium 141. #6. Acute anion gap metabolic acidosis secondary to acute kidney injury. Recovered, current anion gap 5. #7. Hyperphosphatemia, related to acute kidney failure #8. Elevated bilirubin, possibly related to underlying liver disease #9. SVT, with a rate of 230 BPM on admission, recovered with fluid resuscitation and administration of benzodiazepines for EtOH withdrawal #10. Elevated ammonia level, 186 on admission, we'll initiate lactulose. #11. Elevated d-dimer of 1.41, nonspecific, no need for workup for thromboembolic disease, the presentation is not a presentation of thromboembolic disease clinically. Index of suspicion is rather low. #12. Troponin leak of 0.043, possibly related to hypoxia #13. History of recent hospitalization for acute alcohol intoxication, falls and comminuted left mid clavicle fracture, with subsequent discharge to subacute rehab followed by discharge home #14. 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 History of perforated gastric ulcer #16. History of EtOH abuse #17. History of ADD, anxiety and depression #18. Nicotine dependence, in remission #19. History of prolonged QT with polymorphic ventricular tachycardia Plan: The patient was seen and evaluated by Dr. Ruiz. He is stable from the pulmonary and critical care standpoint. We'll continue with his current medications. We'll increase his activity as tolerated. We will continue to follow and make further recommendations based on his clinical status. I, the cosigning physician, performed a history & physical examination of the patient. Lungs sounds are clear. Maintaining good O2 saturations in the 90s on room air. I discussed the assessment and plan of care with my nurse practitioner, Daniella White. I attest to the above note as dictated by her.
[2017-10-08] MEDS: FOLIC ACID 1 MG TAB PO SCH (12:39)
[2017-10-08] MEDS: THIAMINE 100 MG TAB PO SCH ×2 (12:39→15:26)
[2017-10-08] MEDS: MULTIVITAMINS, THERA 1 EACH TAB PO SCH (12:39)
[2017-10-08 14:48] VITALS: BMI 25.3
[2017-10-08] MEDS: FLUoxetine HCL 20 MG CAP PO SCH (17:33)
--- NOTE | 2017-10-08 17:59 | CONS ---
CONSULTATION DATE OF CONSULTATION: 10/08/2017. PURPOSE FOR CONSULTATION: Evaluate for altered mental status and history of alcohol dependence/abuse. INTERVAL HISTORY: Patient has been doing fair. He has had significant improvement in mental status with clearing of orientation. He seems to have fairly good understanding of his current circumstances as well as some of his plans towards discharge. He tells me today that his sister. He is working towards becoming his guardian and that his sister will be working on a plan for him to move into a different living setting. It is not clear what that might be. The patient himself was vague on details. He continues to report being down in his mood. He has some anxiety. He says his sleep has been fair. He is not showing any significant signs of alcohol withdrawal. Vital signs have been stable other than he has been running a low pulse in the 50 range. He does report some anxiety. When I saw him today he gave good eye contact. He was a little restless. His thoughts were clear. He was interactive. His affect was a little constricted. His mood was quiet. He did not appear to be significantly distressed. ASSESSMENT: I will add a diagnosis of major depression. At this point, I will switch his antidepressant. He is currently on Celexa. I will discontinue Celexa and start Prozac 20 mg a day. I will reduce his Klonopin down to 0.5 mg at bedtime only with the aim of tapering him off of Klonopin altogether. It would be helpful for Social Work to get input from sister in regards to his baseline level of function and issues relating to a history of mood disorder. Also, it would be helpful to get information on the housing issues that are being considered. I will continue to follow. MMODL / IJN: [id number] /
[2017-10-08] MEDS: traZODone HCL 50 MG TAB PO SCH (21:32)
[2017-10-08] MEDS: TAMSULOSIN 0.4 MG CAP.ER.24H PO SCH (21:33)
--- NOTE | 2017-10-08 22:43 | P.PN ---
Progress Note - Text Progress Note Date: 10/08/17 DATE OF SERVICE: 10/08/2017 PRESENTING COMPLAINT: Alcohol withdrawal HISTORY OF PRESENT ILLNESS: 62-year-old male who was found totally disheveled in his house. EMS arrived and found the patient conscious alert hyperventilating anxious with mental status changes. Apartment staff had reported a foul odor coming from the patient's apartment the patient not been seen for a few days. Found sitting on his bed covered with feces and patient was unable to tell how long he was like that. Recently completed a 30 day rehab session. Denies any alcohol intake also hasn't been drinking very little water. Admitted for acute renal failure, severe metabolic acidosis, and acute delirium. INTERVAL HISTORY: 10/08/2017: Sitting up in chair eating his meal. Noted to have some jitteriness today very much more awake and able to clearly communicate. Has been complaining of peripheral neuropathy has requested several times to have his Neurontin added back to his medications. Bradycardia improved. Up with assistance and a walker and is quite shaky and unsteady on his feet. Appetite is improving eating about 50% of his meals. Last BM 10/07/2017. 10/07/2017: Sitting up in a chair at the bedside. More awake and more alert able to communicate much more clearly. Less jittery. Had some bradycardia held his beta steven. Appetite improving eating between 40 and 50% of his meals. Up with assistance and walker. Quite shaky when he walks. Last BM 10/07/2017. 10/06/2017: Sitting up in bed sitter at the bedside. Patient still has a great deal of difficulty making conversation and answering simple straightforward questions. Is not quite is jittery as he was yesterday however there are long delays when answering questions. REVIEW OF SYSTEMS: Done for constitutional ,cardiovascular, GI, pulmonary with relevant findings as above. CURRENT MEDICATIONS [place], Rocephin, Prozac, Klonopin, Catapres, Lovenox, folic acid, Ativan, multivitamin, Protonix, Flomax, trazodone PHYSICAL EXAM VITAL SIGNS: Temperature 98.1, pulse 67, respirations 18, blood pressure 141/84, oxygen saturation 98% on room air. GENERAL APPEARANCE: Sitting up in the chair in the bedside, more alert and relaxed. HENT: Normocephalic, JVD unable to assess. Mass not palpable. Oral cavity mucous membranes dry, external appearance of ears and nose normal. EYES:Pupils equal. Conjunctiva normal. RESPIRATORY: Respiratory effort creased. Lungs diminished with a course congested cough to auscultation. CARDIOVASCULAR: First and second sounds normal. No edema. ABDOMEN: Soft. Liver and spleen not palpable. No tenderness. No mass palpable. PSYCHIATRY: Able to answer simple questions, mood and affect less jittery. EXTREMITY: Right foot third and fourth toes are gone. Left foot second toe has plantar dry gangrene INVESTIGATIONS: Chloride 108 ASSESSMENT: -Acute renal failure, acute tubular necrosis, near resolution -Severe metabolic acidosis probably from renal failure, now corrected -Severe hypernatremia from free water deficit, patient has been not drinking at home he states, improving -Acute pancreatitis in a patient that has a known history of alcohol abuse -Acute delirium secondary to metabolic encephalopathy related to alcohol use issues, improving -Hyperbilirubinemia likely due to underlying liver disease -Hypercalcemia secondary to dehydration, resolved -Hyperphosphatemia probably secondary to renal failure which is more acute, resolved -Acute delirium, multifactorial present on admission, improving -Acute chronic obstructive pulmonary disease and chronic nicotine dependence. -Chronic nicotine dependence patient is a smoker. -Peripheral artery disease. -Gastroesophageal reflux disease. -Essential hypertension. -Major depression -Bipolar disorder. -Peripheral neuropathy. -Hyperglycemia. PLAN: Continue empiric antibiotics, monitor daily labs. Continue normal saline at 50 mL an hour. Celexa discontinued and Prozac initiated Klonopin reduced to half a milligram at bedtime only to get rid of Klonopin altogether. We'll evaluate the benefit of adding Neurontin back to patient's medication regimen at a low dose. Psychiatry adjusted his Klonopin and trazodone. Social work involved, patient's sister is expected to obtain guardianship from the court system tomorrow. Once obtained discharge planning will move forward. Plan of care discussed with the patient at bedside he is in agreement. BOARD CERTIFIED FAMILY PHYSICIAN statement: Patient was seen and examined by nurse practitioner Yancy Tatum and all elements of the case discussed with attending Dr. Bruce
[2017-10-09] MEDS ORDERED: GABAPENTIN 100 MG CAP PO SCH (00:11)
--- NOTE | 2017-10-09 07:12 | PN ---
PROGRESS NOTE DATE OF SERVICE: 10/08/2017 PRESENTING COMPLAINT: Tired. INTERVAL HISTORY: This patient was admitted totally being dishevelled, was in acidosis, renal failure, hyponatremic, multiple problems. The patient has been moved out of ICU, more awake, more communicative. Did eat some. Seen by Psychiatry who adjusted his medications. Eating better. REVIEW OF SYSTEMS: Review of systems done for constitutional, cardiovascular, GI, pulmonary; relevant findings as above. CURRENT MEDICATIONS: Current medications are reviewed that include IV ceftriaxone, Klonopin at night, Catapres. Prozac was started, Celexa was discontinued. PHYSICAL EXAMINATION: On examination, temperature 98.1 pulse 67, respirations 18, blood pressure 141/84, pulse ox 98% on room air. HENT: Normocephalic. Oral cavity moist mucous. EYES: Pupils equal. Conjunctivae normal. RESPIRATORY: Effort normal. LUNGS: Diminished breath sounds. Some expiratory wheezing. CARDIOVASCULAR: First and second sounds normal. No edema. ABDOMEN: Soft, nontender. Liver and spleen not palpable. No mass palpable. PSYCHIATRY: Mood affect more perked up, answering questions. EXTREMITIES: Left foot second toe has got a on the plantar aspect. INVESTIGATIONS: Potassium 3.9. BUN and creatinine normal. ASSESSMENT: 1. Acute renal failure with acute tubular necrosis, present on admission, now resolved. 2. Severe metabolic acidosis renal failure now corrected. 3. Severe hypernatremia from free water deficit from poor oral intake, much improved. 4. Acute pancreatitis in a patient with history of chronic alcohol use. 5. Acute delirium secondary to metabolic encephalopathy, improved. 6. Hyperbilirubinemia secondary to underlying disease. 7. Hypercalcemia secondary to free water deficit, resolved. 8. Hyperphosphatemia secondary to renal failure, greatly improved. 9. Acute chronic obstructive pulmonary disease exacerbation in a current cigarette smoker. 10.Chronic nicotine dependence, patient is a current cigarette smoker. 11.Peripheral arterial disease. 12.Gastroesophageal reflux disease. 13.Essential hypertension. 14.Major depression with bipolar disorder. 15.Peripheral neuropathy. PLAN: Psychiatry did stop patient's Celexa, started the patient on Prozac. Also dose of Klonopin has been cut back with aim to taking away. Given that patient's blood pressure is controlled on the current medications, we will start the patient on Neurontin 100 mg at night for now. The patient's sister will be going to the court want to get guardianship. Looking at discharge planning from there. MMVANDANAL / IJN: [id number] /
[2017-10-09] MEDS: cloNIDine HCL 0.1 MG TAB PO SCH ×3 (08:02→22:27)
[2017-10-09] MEDS: ENOXAPARIN 40 MG/0.4 ML SYRINGE SQ SCH (08:02)
[2017-10-09] MEDS: FLUoxetine HCL 20 MG CAP PO SCH (08:02)
[2017-10-09] MEDS: cefTRIAXone IN SWFI 1,000 MG/10 ML SYRINGE IVP SCH (08:02)
[2017-10-09] MEDS: PANTOPRAZOLE 40 MG TABLET PO SCH (08:02)
[2017-10-09] MEDS: HYDROcodone/APAP 10-325MG 1 EACH TAB PO PRN ×3 (08:03→22:28)
[2017-10-09 09:33] LABS: Anion Gap 6 mmol/L; Blood Urea Nitrogen 14 mg/dL (9-20); Calcium 9.3 mg/dL (8.4-10.2); Carbon Dioxide 30 mmol/L (22-30); Chloride 106 mmol/L (98-107); Glucose 90 mg/dL (74-99); Potassium 4.3 mmol/L (3.5-5.1); Sodium 142 mmol/L (137-145)
--- NOTE | 2017-10-09 11:23 | P.PN ---
Subjective Progress Note Date: 10/09/17 Principal diagnosis: Acute hypoxic respiratory failure secondary to cardiac arrhythmia and profound anion gap metabolic acidosis with poor organ perfusion. Valentin is a 62-year-old white male patient, who was recently discharged from the hospital on 09/10/2017 after being hospitalized for alcohol intoxication, gait dysfunction with falls, clavicular fracture to the [facility] where he was undergoing rehabilitation. Patient had completed his therapy course at the [facility] and was discharged home 5 days ago. This morning on 2017 at 1003 patient was brought in per EMS after being found down unresponsive. Patient's family believes patient had relapsed after returning home from the rehab and had been drinking again. On presentation patient was in SVT with a rate of 233 bpm, hypertensive with a blood pressure as high as 213 /132, hypoxic with a pulse ox of 74% on room air. Patient was placed on supplemental oxygen, he was fluid resuscitated with 4 L of 0.9 normal saline, patient's heart rate responded nicely to IV resuscitation. In addition patient received Ativan and Valium for EtOH withdrawal. Venous blood gas showed pH of 6.94, pCO2 39, and bicarb of 8 on admission. Patient had evidence of leukocytosis with WBC of 18.3, d-dimer was elevated at 1.41, there was evidence of acute kidney injury with a BUN of 43 and creatinine of 2.10. Serum finds was found to be elevated at 12.4, total bilirubin was up to 2.1, lipase was elevated at 335, TSH was within normal limits. Serum alcohol was less than 10, acetaminophen was less than 10, salicylates was less than 1, ammonia level was elevated at 186, proBNP was 1290, drug screen was negative, serum acetone was negative, urinalysis showed cloudy urine with 3+ protein 3+ glucose, 1+ ketones , moderate blood negative for nitrates and positive for small amount of leukocyte Estrace, urine WBC was 23. Chest x-ray showed no acute pulmonary process. Blood and urine cultures were collected and sent, and are pending at this time. Patient was given IV Rocephin, and admitted to the intensive care for further management. At the time of my evaluation, patient's seen in the intensive care, awake, alert, oriented to self, he knew he was in the hospital and he knew who the president was. His verbal responses are somewhat slow. He denies any pain, he denies any respiratory difficulty. He is currently in sinus tachycardia with a rate of 101 10/08/2018 BPM, with frequent PACs. He remains somewhat hypertensive with a blood pressure of 178/113, his home antihypertensives were restarted, he continues on 2 L per nasal cannula with O2 sat at 98%. His respirations are even and nonlabored, his lung sounds are diminished, no rhonchi or wheezes auscultated. He has a chronic wound on his right lower extremity, he is missing his third, fourth and fifth toes, including the metatarsals. There is a necrotic area on the tip of his left third toe. Patient was reevaluated today on 10/06/2017, surprisingly the patient is doing better than expected considering his initial presentation. Patient responded and continues to respond well to fluid boluses and to sodium bicarb drip. As a matter of fact his bicarb is basically down normal. Patient presented with a bicarb of 7. And it is 27 today. Patient is less confused, and seems to be much more appropriate today compared to yesterday. Today I have discontinued his sodium bicarb, and discontinued. fomepizole. Apparently he received 1 dose. And his volatile screen came back negative. Today I plan to advance his diet, and I plan to transfer the patient out of the ICU with continuous monitoring for alcohol withdrawal. Patient remains on the protocol. Patient was reevaluated today on 10/07/2017, continues to improve steadily, patient is calm, in no distress, his creatinine has improved down to 1, patient is in no distress, seems to be a bit more appropriate compared to baseline on admission. WBC count is 4.9 hemoglobin is 10.9. Bicarb is 26 renal profile is back to normal. The patient is seen again today 10/08/2017 on the regular medical floor. He is awake and alert in no acute distress. He denies any worsening shortness of breath, cough or congestion. He is maintaining good O2 saturations in the high 90s on room air. His been afebrile. Hemodynamically stable. No chest pain or palpitations. Blood and urine cultures revealed no growth. Sodium 141, potassium 3.9, chloride 108 and a CO2 of 28. The patient is seen again today 10/09/2017 on the regular medical floor. He is resting quite comfortably in bed. He is awake and alert in no acute distress. He denies any worsening shortness of breath, cough or congestion. He is maintaining good O2 saturations in the 90s on room air. Blood and urine cultures revealed no growth. He has been afebrile. Hemodynamically stable. Objective - Vital Signs Vital signs: Vital Signs Temp 94.6 F L 10/09/17 07:00 Pulse 55 L 10/09/17 07:00 Resp 18 10/09/17 07:00 BP 186/88 10/09/17 07:00 Pulse Ox 100 10/09/17 07:00 Intake & Output 10/08/17 10/09/17 10/09/17 18:59 06:59 18:59 Intake Total 960 Output Total 500 700 Balance 460 -700 Weight 92 kg Intake: Oral 960 Output: Urine 500 700 Stool 0 Other: Voiding Method Urinal # Voids 4 - Exam GENERAL EXAM: Alert, active, comfortable in no apparent distress. HEAD: Normocephalic. EYES: Normal reaction of pupils, equal size. NOSE: Clear with pink turbinates. THROAT: No erythema or exudates. NECK: No masses, no JVD. CHEST: No chest wall deformity. LUNGS: Equal air entry with no crackles, wheeze, rhonchi or dullness. CVS: S1 and S2 normal with no audible murmur, regular rhythm. ABDOMEN: No hepatosplenomegaly, normal bowel sounds, no guarding or rigidity. SPINE: No scoliosis or deformity SKIN: No rashes CENTRAL NERVOUS SYSTEM: No focal deficits, tone is normal in all 4 extremities. EXTREMITIES: There is no peripheral edema. No clubbing, no cyanosis. Peripheral pulses are intact. - Labs CBC & Chem 7: 10/07/17 04:33 10/09/17 08:44 Labs: Microbiology - Last 24 Hours (Table) 10/05/17 10:12 Blood Culture - Preliminary Blood No Growth after 72 hours Assessment and Plan Assessment: Impression: #1. Acute metabolic encephalopathy secondary to acute hypoxic respiratory failure secondary to cardiac arrhythmia and profound anion gap metabolic acidosis with poor organ perfusion. #2. Acute supraventricular tachycardia upon initial presentation #3. Subacute pancreatitis #4. Acute kidney injury, present on admission, BUN of 43, and creatinine of 2.10. Recovered, current creatinine 0.95. #5. Acute hypernatremia, secondary to free water deficit related to dehydration. Recovered current sodium 141. #6. Acute anion gap metabolic acidosis secondary to acute kidney injury. Recovered, current anion gap 5. #7. Hyperphosphatemia, related to acute kidney failure #8. Elevated bilirubin, possibly related to underlying liver disease #9. SVT, with a rate of 230 BPM on admission, recovered with fluid resuscitation and administration of benzodiazepines for EtOH withdrawal #10. Elevated ammonia level, 186 on admission, we'll initiate lactulose. #11. Elevated d-dimer of 1.41, nonspecific, no need for workup for thromboembolic disease, the presentation is not a presentation of thromboembolic disease clinically. Index of suspicion is rather low. #12. Troponin leak of 0.043, possibly related to hypoxia #13. History of recent hospitalization for acute alcohol intoxication, falls and comminuted left mid clavicle fracture, with subsequent discharge to subacute rehab followed by discharge home #14. 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 History of perforated gastric ulcer #16. History of EtOH abuse #17. History of ADD, anxiety and depression #18. Nicotine dependence, in remission #19. History of prolonged QT with polymorphic ventricular tachycardia Plan: The patient was seen and evaluated by Dr. Ruiz. He is stable from the pulmonary standpoint. We'll continue with his current medications. We'll increase his activity as tolerated. We will continue to follow and make further recommendations based on his clinical status. Discharge planning is in place. I, the cosigning physician, performed a history & physical examination of the patient. Lungs sounds are clear. Maintaining good O2 saturations in the 90s on room air. I discussed the assessment and plan of care with my nurse practitioner, Daniella White. I attest to the above note as dictated by her.
[2017-10-09] MEDS: THIAMINE 100 MG TAB PO SCH ×2 (11:25→17:39)
[2017-10-09] MEDS: FOLIC ACID 1 MG TAB PO SCH (11:25)
[2017-10-09] MEDS: MULTIVITAMINS, THERA 1 EACH TAB PO SCH (11:25)
[2017-10-09] MEDS: LISINOPRIL-HCTZ 20-12.5 MG 1 EACH TAB PO SCH (15:59)
--- NOTE | 2017-10-09 16:24 | DS ---
DISCHARGE SUMMARY DATE OF ADMISSION: 10/05/2017. DATE OF DISCHARGE: 10/09/2017 FINAL DIAGNOSES: 1. Acute renal failure with acute tubular necrosis, present on admission, now resolved. 2. Severe metabolic acidosis from renal failure, present on admission, corrected. 3. Severe hypernatremia from free water deficit from poor oral intake, resolved. 4. Mild acute pancreatitis in a patient with history of chronic alcohol use. 5. Acute delirium secondary to metabolic encephalopathy, present on admission, improved. 6. Hyperlipidemia. 7. Hypocalcemia secondary to free water deficit and renal failure, present on admission, resolved. 8. Hyperphosphatemia secondary to renal failure, much improved. 9. Acute chronic obstructive pulmonary disease exacerbation in a cigarette smoker. 10.Chronic nicotine dependence. Patient is a current cigarette smoker. 11.Peripheral arterial disease. 12.Gastroesophageal reflux disease. 13.Essential hypertension. 14.Major depression with bipolar disorder. 15.Peripheral neuropathy, probably from alcoholism. HOSPITAL COURSE: This patient with long-standing alcoholism and smoking had gone to alcohol rehab for a month, had come home, probably for 5 to 7 days. The patient is not sure really what happened, but the patient was found extremely disheveled, sitting in feces, extremely confused. Electrolytes were totally off when patient initially presented. Patient's creatinine was 2.10, which eventually has come down to 0.90. Patient was severely acidotic. The patient is now doing much better. He walked about 20 steps with a walker. He is alert and oriented x3. Patient's sister obtained guardianship from the court. CONSULTATIONS: Dr. Ruiz from Pulmonary. Dr. Adams from \Psychiatry. Dr. Maria Alejandra Billy from Cardiology for SVT. 1. Dr. Ellison from Nephrology. HOME GO MEDICATIONS: 1. Flomax 0.4 mg at bedtime. 2. Folic acid 1 mg p.o. daily. 3. Multivitamin 1 tablet p.o. daily. 4. Nicotine 14 one patch daily. 5. Thiamine 100 mg p.o. b.i.d. 6. Catapres 0.1 mg p.o. t.i.d. 7. Prozac 20 mg p.o. daily. 8. Neurontin 100 mg p.o. t.i.d. 9. [place] 10 one tablet q.6 p.r.n. for pain. 10.Protonix 40 mg p.o. daily. 11.Klonopin 0.5 mg p.o. at bedtime. 12.Trazodone 50 mg p.o. at bedtime. DISPOSITION: [facility] on the [facility]. Follow up with Dr. Cross at [facility]/ Follow up with Dr. Mustafa after discharge from the [facility]. Follow up with Dr Cross at the [facility]. Please note: Patient's legal guardian is his sister, now court-appointed MMVANDANAL / JACQUESN: [id number] /
[2017-10-09] MEDS: SODIUM CHLORIDE 0.9% 1,000 ML IV SCH (17:39)
[2017-10-09] MEDS: GABAPENTIN 100 MG CAP PO SCH ×2 (17:39→22:28)
[2017-10-09] MEDS: clonazePAM 0.5 MG TAB PO SCH (20:53)
[2017-10-09] MEDS: TAMSULOSIN 0.4 MG CAP.ER.24H PO SCH (20:53)
[2017-10-09] MEDS: traZODone HCL 50 MG TAB PO SCH (21:36)
[2017-10-10] MEDS: HYDROcodone/APAP 10-325MG 1 EACH TAB PO PRN ×2 (06:24→12:07)
[2017-10-10 07:33] VITALS: BP 157/79; PULSE 59; TEMP 97.5
[2017-10-10] MEDS: cefTRIAXone IN SWFI 1,000 MG/10 ML SYRINGE IVP SCH (09:19)
[2017-10-10] MEDS: LISINOPRIL-HCTZ 20-12.5 MG 1 EACH TAB PO SCH (09:20)
[2017-10-10] MEDS: FLUoxetine HCL 20 MG CAP PO SCH (09:20)
[2017-10-10] MEDS: ENOXAPARIN 40 MG/0.4 ML SYRINGE SQ SCH (09:20)
[2017-10-10] MEDS: PANTOPRAZOLE 40 MG TABLET PO SCH (09:21)
[2017-10-10] MEDS: cloNIDine HCL 0.1 MG TAB PO SCH (09:21)
[2017-10-10] MEDS: GABAPENTIN 100 MG CAP PO SCH (09:21)
[2017-10-10] MEDS: FOLIC ACID 1 MG TAB PO SCH (09:22)
[2017-10-10] MEDS: MULTIVITAMINS, THERA 1 EACH TAB PO SCH (09:22)
[2017-10-10] MEDS: THIAMINE 100 MG TAB PO SCH (11:22)
[2017-10-10] MEDS: SODIUM CHLORIDE 0.9% 1,000 ML IV SCH (13:48)
== END 2017-10-10 14:40 | DRG 682 ==
LOC: EC 10:03 → 6SEL 11:43 → EEVIPCON 11:43 → 6ICU 12:06 → 4MS4W 10-07 18:14
PROVIDERS: ADMIT Hospitalist; ATTEND Hospitalist
DX: N17.0 Acute kidney failure with tubular necrosis (principal); G93.41 Metabolic encephalopathy; J96.01 Acute respiratory failure with hypoxia; K85.90 Acute pancreatitis without necrosis or infection, unspecified; E72.20 Disorder of urea cycle metabolism, unspecified; E87.0 Hyperosmolality and hypernatremia; E87.2 Acidosis; R65.10 Systemic inflammatory response syndrome (SIRS) of non-infectious origin without acute organ dysfunction; F05 Delirium due to known physiological condition; I47.1 Supraventricular tachycardia; J44.1 Chronic obstructive pulmonary disease with (acute) exacerbation; R44.3 Hallucinations, unspecified; E83.39 Other disorders of phosphorus metabolism; E83.52 Hypercalcemia; E78.5 Hyperlipidemia, unspecified; E86.0 Dehydration; E87.6 Hypokalemia; F10.20 Alcohol dependence, uncomplicated; F17.219 Nicotine dependence, cigarettes, with unspecified nicotine-induced disorders; F40.240 Claustrophobia; F90.9 Attention-deficit hyperactivity disorder, unspecified type; G62.9 Polyneuropathy, unspecified; I10 Essential (primary) hypertension; I73.9 Peripheral vascular disease, unspecified; K21.9 Gastro-esophageal reflux disease without esophagitis; K76.9 Liver disease, unspecified; R79.1 Abnormal coagulation profile; G89.29 Other chronic pain; L40.9 Psoriasis, unspecified; R00.1 Bradycardia, unspecified; R19.7 Diarrhea, unspecified; R73.9 Hyperglycemia, unspecified; R74.8 Abnormal levels of other serum enzymes; F41.9 Anxiety disorder, unspecified; F32.9 Major depressive disorder, single episode, unspecified; Z79.899 Other long term (current) drug therapy; Z87.11 Personal history of peptic ulcer disease; Z88.0 Allergy status to penicillin; Z86.14 Personal history of Methicillin resistant Staphylococcus aureus infection; Z89.421 Acquired absence of other right toe(s); Z82.49 Family history of ischemic heart disease and other diseases of the circulatory system; Y90.0 Blood alcohol level of less than 20 mg/100 ml
CPT/HCPCS: 36415; 36600; 51702; 70450; 71045; 76705; 80048; 80053; 80306; 80320; 81001; 82009; 82140; 82150; 82550; 82553; 82693; 82803; 82805; 83520; 83690; 83735; 83880; 83930; 84100; 84132; 84443; 84484; 84600; 85025; 85379; 85610; 85730; 87040; 87086; 87502; 93005; 93306; 93970; 94660; 96361; 96374; 96375; 99291

== ENCOUNTER 2017-11-05 00:53 | Observation (INO) | payer MEDICARE, OTHER ==
[2017-11-05] MEDS ORDERED: ONDANSETRON 4 MG/2 ML VIAL IVP STA ×2 (01:27→05:37)
[2017-11-05 01:37] LABS: Appearance,Urine Clear (Clear); Basophils % (A) 0 %; Bilirubin,Urine Negative (Negative); Blood,Urine Negative (Negative); Color,Urine Light Yellow; Eosinophils # (A) 0.1 k/uL (0-0.7); Eosinophils % (A) 1 %; Glucose,Urine (UA) Negative (Negative); HCT 31.3 % (39.0-53.0); HGB 10.9 gm/dL (13.0-17.5); Ketones,Urine Negative (Negative); Leukocyte Esterase,Urine Negative (Negative); Lymphocytes # (A) 0.6 k/uL (1.0-4.8); Lymphocytes % (A) 7 %; MCH 32.5 pg (25.0-35.0); MCHC 34.9 g/dL (31.0-37.0); Mean Platelet Volume 7.5; Monocytes # (A) 0.4 k/uL (0-1.0); Monocytes % (A) 5 %; Neutrophils % (A) 86 %; Nitrite,Urine Negative (Negative); PH, Urine 6.5 (5.0-8.0); Platelet Count 145 k/uL (150-450); Protein,Urine Negative (Negative); RBC 3.36 m/uL (4.30-5.90); RDW 12.8 % (11.5-15.5); Specific Gravity,Urine 1.007 (1.001-1.035); Urobilinogen,Urine <2.0 mg/dL (<2.0); WBC 8.1 k/uL (3.8-10.6)
[2017-11-05 01:44] LABS: MCV 93.1 fL (80.0-100.0)
[2017-11-05 01:55] LABS: ALT 19 U/L (21-72); AST 22 U/L (17-59); Albumin 4.1 g/dL (3.5-5.0); Alkaline Phosphatase 63 U/L (38-126); Amylase 123 U/L (30-110); Anion Gap 10 mmol/L; Blood Urea Nitrogen 16 mg/dL (9-20); Calcium 9.5 mg/dL (8.4-10.2); Carbon Dioxide 30 mmol/L (22-30); Chloride 101 mmol/L (98-107); Glucose 115 mg/dL (74-99); Lipase 206 U/L (23-300); Sodium 141 mmol/L (137-145); Total Bilirubin 0.6 mg/dL (0.2-1.3); Total Protein 7.4 g/dL (6.3-8.2)
--- NOTE | 2017-11-05 01:56 | XR ---
EXAMINATION TYPE: XR abdomen acute w cxr DATE OF EXAM: 11/05/2017 COMPARISON: NONE HISTORY: Pain TECHNIQUE: 4 views FINDINGS: Lungs are clear. There is no heart failure. There is no sign of pleural effusion. Bowel gas pattern is normal. There is no sign of intestinal obstruction or pneumoperitoneum. Fecal pa ttern is normal. There are phleboliths in the pelvis on the left side. I see no pathologic calcificat ions over the kidneys. There is no sign of a mass. IMPRESSION: No active cardiopulmonary disease. Nonacute abdomen.
[2017-11-05] MEDS ORDERED: METOCLOPRAMIDE 5 MG/ML 2 ML VIAL IVP STA (02:33)
[2017-11-05] MEDS ORDERED: MORPHINE SULFATE 4 MG/ML SYRINGE IV STA (02:47)
[2017-11-05] MEDS ORDERED: PROCHLORPERAZINE 5 MG TAB PO PRN (05:38)
[2017-11-05] MEDS ORDERED: NALOXONE 0.4 MG/ML 1 ML VIAL IV PRN (05:38)
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
[2017-11-05] MEDS ORDERED: SODIUM CHLORIDE 0.9% 1,000 ML IV SCH (05:45)
[2017-11-05] MEDS: cloNIDine HCL 0.1 MG TAB PO SCH ×2 (08:08→15:23)
[2017-11-05] MEDS: MULTIVITAMINS, THERA 1 EACH TAB PO SCH (08:08)
[2017-11-05] MEDS: FOLIC ACID 1 MG TAB PO SCH (08:08)
[2017-11-05] MEDS: LISINOPRIL-HCTZ 20-12.5 MG 1 EACH TAB PO SCH (08:09)
[2017-11-05] MEDS: FLUoxetine HCL 20 MG CAP PO SCH (08:09)
[2017-11-05] MEDS: GABAPENTIN 100 MG CAP PO SCH ×2 (08:09→15:23)
[2017-11-05] MEDS: FAMOTIDINE 20 MG TAB PO SCH ×2 (08:09→22:39)
[2017-11-05] MEDS: NICOTINE 14MG/24HR PATCH TRANSDERM SCH (08:16)
[2017-11-05] MEDS: THIAMINE 100 MG TAB PO SCH ×2 (11:05→16:29)
[2017-11-05] MEDS: PANTOPRAZOLE 40 MG TABLET PO SCH (11:06)
[2017-11-05] MEDS: HYDROcodone/APAP 10-325MG 1 EACH TAB PO PRN ×2 (12:34→16:29)
[2017-11-05] MEDS: GABAPENTIN 300 MG CAP PO SCH (21:17)
[2017-11-05] MEDS: clonazePAM 0.5 MG TAB PO SCH (21:18)
[2017-11-05] MEDS: TAMSULOSIN 0.4 MG CAP.ER.24H PO SCH (21:18)
[2017-11-05] MEDS: traZODone HCL 50 MG TAB PO SCH (21:18)
[2017-11-05] MEDS: ONDANSETRON 4 MG/2 ML VIAL IVP PRN (21:19)
--- NOTE | 2017-11-05 21:24 | HP ---
HISTORY AND PHYSICAL DATE OF ADMISSION: November 05, 2017 PRESENTING COMPLAINT: Nausea, vomiting, diarrhea. HISTORY OF PRESENTING COMPLAINT: This is a 62-year-old patient who was discharged from the rehab yesterday, went home for 2 hours and then came back here. The patient was just about a month ago in the hospital. At that time, patient had acute renal failure, metabolic acidosis, hypernatremia, acute pancreatitis, hypercalcemia, electrolyte abnormalities. Chronic stable medical conditions include COPD, peripheral artery disease, GERD, hypertension, bipolar, peripheral neuropathy from alcoholism. The patient has not drank alcohol since his last admission. The patient presented with a few hours of nausea, vomiting, diarrhea and some abdominal discomfort. Denies any blood in the stools. Nobody else was sick around him. No fever. He has not been able to keep any liquids down hence he was admitted. REVIEW OF SYSTEMS: Constitutional: Tired. HEENT none. Respiratory none. Cardiovascular none. Gastrointestinal as above. Genitourinary none. Musculoskeletal none. Dermatological and hematologic, lymphatic none. Psychiatry anxiety. NEUROLOGICAL: Peripheral neuropathy pain in the lower extremity. PAST MEDICAL HISTORY: Past medical history of pancreatitis, hyperlipidemia, COPD, peripheral artery disease, GERD, essential hypertension, major depression, bipolar disorder, peripheral neuropathy. PAST SURGICAL HISTORY: Amputation of the 4th and 5th toes on the right through the metatarsal head, multiple I and D shows nonhealing wound of the right foot. Repair of perforated ulcer of the stomach. PICC line. Additional past medical history includes: Alcohol abuse and osteomyelitis and psoriasis. SOCIAL HISTORY: The patient discharged from [facility] on 11/04/17 and went to a friend's house. The patient's sister Amy is the legal guardian. The patient is drinking heavily up until 4 weeks ago and he is down to 2-3 cigarettes a day if any. Otherwise, smoked a pack a day up until 4 weeks ago. FAMILY HISTORY: Of diabetes, stroke. HOME MEDICATIONS: 1. Desyrel 50 mg at bedtime. 2. Klonopin 0.5 mg q.h.s. 3. Catapres 0.1 mg t.i.d. 4. Thiamine 100 mg b.i.d. 5. Flomax 0.4 mg q.h.s. 6. Protonix 40 mg daily. 7. Multivitamin 1 tab p.o. daily. 8. Zestoretic 20/12.5 one tab daily. 9. Bode 10 1 tab q.6 p.r.n. 10.Neurontin 300 mg t.i.d. 11.Prozac 20 mg p.o. daily. ALLERGIES: PENICILLIN. PHYSICAL EXAMINATION: Vital signs on presentation: Temperature 98, pulse 66, respiration 18, blood pressure 127/63, pulse ox 100% on room air. General appearance: Average build, lying in bed, tired appearing. Eyes pupils equal. Conjunctivae pale. HEENT: External appearance of nose and ears normal. Oral cavity dry mucous membranes. Neck JVD not raised. Mass not palpable. RESPIRATORY: Effort. LUNGS: Diminished breath sounds. Cardiovascular 1st and 2nd sounds normal. No edema. Abdomen mild tenderness. No guarding, rigidity. Liver and spleen not palpable. Lymphatics: No lymph nodes palpable in the neck or axillae. PSYCHIATRY: Alert and oriented x3. Mood and affect anxious-appearing. Neurological: Pupils equal. Decreased sensation distally. INVESTIGATIONS: White count 8.1, hemoglobin 10.9, potassium 4.0, BUN creatinine is normal. Influenza drug screen negative. UA is negative. ASSESSMENT: 1. Acute severe gastroenteritis, probably viral. 2. Peripheral neuropathy secondary to alcoholism. 3. Bipolar disorder. 4. Essential hypertension. 5. Gastroesophageal reflux disease. 6. Peripheral artery disease. 7. Chronic obstructive pulmonary disease in an ex-smoker smoker. PLAN: Patient will be put on a clear liquid diet. Home medications resumed. Stool will be sent off for ova and parasites. Follow up on antibiotics for right now. Give IV fluids. Will send the stool for C diff. recent hospitalization noticed, clinical picture is not compatible with the same. Care was discussed with the patient. MMODL / IJN: [id number] /
[2017-11-05] MEDS: METOPROLOL TARTRATE 50 MG TAB PO SCH (22:35)
[2017-11-05] MEDS: Acetaminophen-Codeine 300-30mg TAB PO PRN (22:35)
[2017-11-05] MEDS: PYRIDOXINE 50 MG TAB PO SCH (22:36)
[2017-11-05] MEDS: LACTATED RINGERS 1,000 ML IV SCH (22:40)
[2017-11-06] MEDS: Acetaminophen-Codeine 300-30mg TAB PO PRN ×5 (02:54→19:47)
[2017-11-06] MEDS: LACTATED RINGERS 1,000 ML IV SCH ×2 (06:32→11:10)
[2017-11-06] MEDS: PYRIDOXINE 50 MG TAB PO SCH (08:17)
[2017-11-06] MEDS: PANTOPRAZOLE 40 MG TABLET PO SCH (08:18)
[2017-11-06] MEDS: METOPROLOL TARTRATE 50 MG TAB PO SCH ×2 (08:18→19:49)
[2017-11-06] MEDS: LISINOPRIL-HCTZ 20-12.5 MG 1 EACH TAB PO SCH (08:18)
[2017-11-06] MEDS: FOLIC ACID 1 MG TAB PO SCH (08:18)
[2017-11-06] MEDS: MULTIVITAMINS, THERA 1 EACH TAB PO SCH (08:18)
[2017-11-06] MEDS: FLUoxetine HCL 20 MG CAP PO SCH ×2 (08:18→08:26)
[2017-11-06] MEDS: GABAPENTIN 300 MG CAP PO SCH ×3 (08:18→19:49)
[2017-11-06] MEDS: FAMOTIDINE 20 MG TAB PO SCH (08:18)
[2017-11-06] MEDS: NICOTINE 14MG/24HR PATCH TRANSDERM SCH (08:18)
[2017-11-06] MEDS: THIAMINE 100 MG TAB PO SCH ×2 (08:19→15:16)
[2017-11-06 09:20] LABS: Anion Gap 12 mmol/L; Blood Urea Nitrogen 11 mg/dL (9-20); Calcium 9.6 mg/dL (8.4-10.2); Carbon Dioxide 29 mmol/L (22-30); Chloride 101 mmol/L (98-107); Glucose 111 mg/dL (74-99); Potassium 4.1 mmol/L (3.5-5.1); Sodium 142 mmol/L (137-145)
--- NOTE | 2017-11-06 17:01 | PN ---
PROGRESS NOTE DATE OF SERVICE: 11/06/2017 PRESENTING COMPLAINT: Nausea, vomiting, diarrhea. INTERVAL HISTORY: The patient presented with acute gastroenteritis, felt to be probably viral. No more vomiting. Only nausea is present. Diarrhea is actually better. Patient has been tolerating a full liquid diet. Patient was an alcoholic up until recently; just discharged from rehab. REVIEW OF SYSTEMS: Done for constitutional, cardiovascular, GI, pulmonary; relevant findings as above. CURRENT MEDICATIONS: Reviewed. They include IV fluids. PHYSICAL EXAMINATION: Temperature 97.4, pulse 51, respiration 20, blood pressure 127/72, pulse ox 99% on room air. GENERAL APPEARANCE: Sitting up on bed. Awake. Anxious-appearing. EYES: Pupils equal. Conjunctivae normal. HEENT: External appearance of nose and ears normal. Oral cavity normal. NECK: JVD not raised. Mass not palpable. RESPIRATORY: Effort normal. LUNGS: Decreased breath sounds. CARDIOVASCULAR: First and second sounds normal. No edema. ABDOMEN: Soft. Minimal tenderness. Liver and spleen not palpable. PSYCHIATRY: Alert and oriented x3. Less anxious-appearing. NEUROLOGICAL: Decreased sensation distally. INVESTIGATIONS: Potassium 4.1. BUN and creatinine are normal. ASSESSMENT: 1. Acute severe gastroenteritis, probably viral, with clinical improvement. 2. Painful peripheral neuropathy secondary to chronic alcoholism. Patient is now not drinking anymore. 3. Bipolar disorder. 4. Essential hypertension. 5. Gastroesophageal reflux disease. 6. Peripheral artery disease. 7. Chronic obstructive pulmonary disease in an ex-smoker. 8. Patient has a legal guardian. PLAN: Patient did tolerate a full liquid diet. It will be advanced to soft bland. Vitamin B6 was added for the neuropathy. Patient is asking for more pain medications. I told him he is already on a significant amount of Neurontin; should actually get up and walk about. The patient does not have a place to go; has a legal guardian. lineworker is looking into finding him assisted living. MMODL / IJN: [id number] /
[2017-11-06] MEDS: CALCIUM CARBONATE LIQUID 500 MG/5 ML CUP PO SCH (17:32)
[2017-11-06] MEDS: clonazePAM 0.5 MG TAB PO SCH (19:48)
[2017-11-06] MEDS: TAMSULOSIN 0.4 MG CAP.ER.24H PO SCH (19:48)
[2017-11-06] MEDS: traZODone HCL 50 MG TAB PO SCH (19:49)
[2017-11-07] MEDS: Acetaminophen-Codeine 300-30mg TAB PO PRN ×3 (00:18→10:49)
[2017-11-07 07:41] LABS: Anion Gap 10 mmol/L; Blood Urea Nitrogen 9 mg/dL (9-20); Calcium 9.5 mg/dL (8.4-10.2); Carbon Dioxide 30 mmol/L (22-30); Chloride 103 mmol/L (98-107); Glucose 99 mg/dL (74-99); Potassium 3.8 mmol/L (3.5-5.1); Sodium 143 mmol/L (137-145)
[2017-11-07] MEDS: ONDANSETRON 4 MG/2 ML VIAL IVP PRN (09:17)
[2017-11-07] MEDS: CALCIUM CARBONATE LIQUID 500 MG/5 ML CUP PO SCH ×3 (09:19→15:28)
[2017-11-07] MEDS: FLUoxetine HCL 20 MG CAP PO SCH (09:19)
[2017-11-07] MEDS: NICOTINE 14MG/24HR PATCH TRANSDERM SCH (09:20)
[2017-11-07] MEDS: PANTOPRAZOLE 40 MG TABLET PO SCH (09:20)
[2017-11-07] MEDS: GABAPENTIN 300 MG CAP PO SCH ×3 (09:20→20:28)
[2017-11-07] MEDS: METOPROLOL TARTRATE 50 MG TAB PO SCH ×2 (09:20→20:29)
[2017-11-07] MEDS: LISINOPRIL-HCTZ 20-12.5 MG 1 EACH TAB PO SCH (09:21)
[2017-11-07] MEDS: MULTIVITAMINS, THERA 1 EACH TAB PO SCH (10:50)
[2017-11-07] MEDS: FOLIC ACID 1 MG TAB PO SCH (10:50)
[2017-11-07] MEDS: THIAMINE 100 MG TAB PO SCH ×2 (10:50→15:27)
[2017-11-07] MEDS: PYRIDOXINE 50 MG TAB PO SCH (10:50)
[2017-11-07] MEDS: PANTOPRAZOLE 40 MG/10 ML VIAL IVP SCH ×2 (14:08→21:56)
[2017-11-07] MEDS: HYDROcodone/APAP 5-325MG 1 EACH TAB PO PRN ×2 (15:27→20:29)
[2017-11-07 17:11] LABS: Amphetamine Screen,Urine Not Detected (NotDetected); Barbiturate Screen,Urine Not Detected (NotDetected); Benzodiazepines Screen,Urine Not Detected (NotDetected); Cocaine Screen,Urine Not Detected (NotDetected); Methadone Screen, Urine Not Detected (NotDetected); Opiate Screen,Urine Detected (NotDetected); Oxycodone Screen, Urine Not Detected (NotDetected); Phencyclidine Screen,Urine Not Detected (NotDetected); Tricyclic Antidepressant,Urine Not Detected (NotDetected); Urn Cannabinoid Scrn Not Detected (NotDetected)
[2017-11-07] MEDS: clonazePAM 0.5 MG TAB PO SCH (20:28)
[2017-11-07] MEDS: TAMSULOSIN 0.4 MG CAP.ER.24H PO SCH (20:28)
[2017-11-07] MEDS: traZODone HCL 50 MG TAB PO SCH (20:29)
[2017-11-08 08:16] LABS: Blood Urea Nitrogen 10 mg/dL (9-20); Calcium 9.6 mg/dL (8.4-10.2); Chloride 104 mmol/L (98-107); Glucose 94 mg/dL (74-99); Sodium 143 mmol/L (137-145)
[2017-11-08 08:32] LABS: Anion Gap 10 mmol/L; Carbon Dioxide 29 mmol/L (22-30)
[2017-11-08] MEDS: FOLIC ACID 1 MG TAB PO SCH (08:32)
[2017-11-08] MEDS: CALCIUM CARBONATE LIQUID 500 MG/5 ML CUP PO SCH ×3 (08:32→15:34)
[2017-11-08] MEDS: LISINOPRIL-HCTZ 20-12.5 MG 1 EACH TAB PO SCH (08:33)
[2017-11-08] MEDS: HYDROcodone/APAP 5-325MG 1 EACH TAB PO PRN ×3 (08:33→21:21)
[2017-11-08] MEDS: FLUoxetine HCL 20 MG CAP PO SCH ×2 (08:33→08:36)
[2017-11-08] MEDS: GABAPENTIN 300 MG CAP PO SCH ×3 (08:34→20:26)
[2017-11-08] MEDS: PANTOPRAZOLE 40 MG/10 ML VIAL IVP SCH ×2 (08:34→20:26)
[2017-11-08] MEDS: MULTIVITAMINS, THERA 1 EACH TAB PO SCH (08:34)
[2017-11-08] MEDS: PYRIDOXINE 50 MG TAB PO SCH (08:34)
[2017-11-08] MEDS: NICOTINE 14MG/24HR PATCH TRANSDERM SCH (08:34)
[2017-11-08] MEDS: METOPROLOL TARTRATE 50 MG TAB PO SCH ×2 (09:01→20:26)
[2017-11-08] MEDS: THIAMINE 100 MG TAB PO SCH ×2 (14:23→15:34)
--- NOTE | 2017-11-08 17:11 | P.PN ---
Subjective Progress Note Date: 11/07/17 Principal diagnosis: Acute gastroenteritis Patient is a 62-year-old male with a history of alcohol abuse hypertension, GERD and multiple other medical problems admitted to hospital with nausea and vomiting and diarrhea. Currently being treated for acute gastroenteritis and possible alcohol withdrawal. Patient was recently released from rehab. 11/07/2017 Today patient denied any complaints of chest pain or shortness of breath. Still having nausea and 1 episode of vomiting. Says that he feels very weak. Diarrhea resolved at this time. Patient was started on clear liquids and advance as tolerated. Patient wants to change her pain medication to [place] and Klonopin 2 twice a day. No fever no chills. No complaints of abdominal pain at this time. All other review of systems negative. Current medications reviewed Objective - Vital Signs Vital signs: Vital Signs Temp 97.5 F L 11/07/17 07:00 Pulse 59 L 11/07/17 07:00 Resp 20 11/07/17 07:00 BP 143/71 11/07/17 07:00 Pulse Ox 99 11/07/17 07:00 Intake & Output 11/06/17 11/07/17 11/07/17 18:59 06:59 18:59 Intake Total 2000 Output Total 800 Balance -800 2000 Weight 95.254 kg Intake: Intake, IV Titration 2000 Amount Lactated Ringers 1,000 ml 2000 @ 125 mls/hr IV .Q8H [facility] Rx#:[id number] Output: Urine 800 Other: Voiding Method Toilet # Voids 2 1 # Bowel Movements 0 - Exam PHYSICAL EXAMINATION: Patient is lying in the bed comfortably, no acute distress, awake alert and oriented.. Patient seems anxious and shaky HEENT: Normocephalic. Neck is supple. Pupils reactive. Nostrils clear. Oral cavity is moist. Ears reveal no drainage. Neck reveals no JVD, carotid bruits, or thyromegaly. CHEST EXAMINATION: Trachea is central. Symmetrical expansion. Lung romano clear to auscultation and percussion. CARDIAC: Normal S1, S2 with no gallops. No murmurs ABDOMEN: Soft. Bowel sounds normal. No organomegaly. No abdominal bruits. Extremities: reveal no edema. No clubbing or cyanosis Neurologically awake, alert, oriented x3 with well-coordinated movements. No focal deficits noted Skin: No rash or skin lesions. Psychiatric: Coperative. Nonsuicidal Musculoskeletal: No joint swelling or deformity. Normal range of motion. - Labs CBC & Chem 7: 11/05/17 01:04 11/08/17 07:30 Assessment and Plan Assessment: Acute severe gastroenteritis possibly viral. Improving clinically. Peripheral neuropathy secondary to chronic alcoholism Bipolar disorder Essential hypertension GERD Peripheral vascular disease COPD stable in a patient with history of smoking Anxiety Patient has a legal guardian Plan: Patient will be continued on symptomatic management for nausea and vomiting. Continue with PPI. Patient tolerated full liquid diet and advance it to dysphagia level III diet. Continue with thiamine and multivitamin. Patient is also on Neurontin. Patient says that he does not have a place to go. Patient has a legal guardian. Social work is looking into finding him assisted living. Time with Patient: Greater than 30
--- NOTE | 2017-11-08 17:13 | P.PN ---
Subjective Progress Note Date: 11/08/17 Principal diagnosis: Acute gastroenteritis Patient is a 62-year-old male with a history of alcohol abuse hypertension, GERD and multiple other medical problems admitted to hospital with nausea and vomiting and diarrhea. Currently being treated for acute gastroenteritis and possible alcohol withdrawal. Patient was recently released from rehab. 11/07/2017 Today patient denied any complaints of chest pain or shortness of breath. Still having nausea and 1 episode of vomiting. Says that he feels very weak. Diarrhea resolved at this time. Patient was started on clear liquids and advance as tolerated. Patient wants to change her pain medication to [place] and Klonopin 2 twice a day. No fever no chills. No complaints of abdominal pain at this time. 11/08/2017 Patient is able to tolerate diet today. No episodes of vomiting. Still nauseated as per patient. Otherwise improved anxiety. No fever no chills. No chest pain no shortness of breath. Leg pain is better otherwise. No acute overnight issues. Anticipate discharge tomorrow once is seen by social work and arrange for assisted living. All other review of systems negative. Current medications reviewed Objective - Vital Signs Vital signs: Vital Signs Temp 99.9 F H 11/08/17 15:00 Pulse 76 11/08/17 15:00 Resp 18 11/08/17 15:00 BP 145/88 11/08/17 15:00 Pulse Ox 97 11/08/17 15:00 Intake & Output 11/07/17 11/08/17 11/08/17 18:59 06:59 18:59 Other: # Voids 1 2 1 # Bowel Movements 1 - Exam PHYSICAL EXAMINATION: Patient is lying in the bed comfortably, no acute distress, awake alert and oriented.. Patient seems anxious and shaky HEENT: Normocephalic. Neck is supple. Pupils reactive. Nostrils clear. Oral cavity is moist. Ears reveal no drainage. Neck reveals no JVD, carotid bruits, or thyromegaly. CHEST EXAMINATION: Trachea is central. Symmetrical expansion. Lung romano clear to auscultation and percussion. CARDIAC: Normal S1, S2 with no gallops. No murmurs ABDOMEN: Soft. Bowel sounds normal. No organomegaly. No abdominal bruits. Extremities: reveal no edema. No clubbing or cyanosis Neurologically awake, alert, oriented x3 with well-coordinated movements. No focal deficits noted Skin: No rash or skin lesions. Psychiatric: Coperative. Nonsuicidal Musculoskeletal: No joint swelling or deformity. Normal range of motion. - Labs CBC & Chem 7: 11/05/17 01:04 11/08/17 07:30 Labs: Abnormal Lab Results - Last 24 Hours (Table) 11/07/17 Range/Units 16:29 Urine Opiates Screen Detected H (NotDetected) Assessment and Plan Assessment: Acute severe gastroenteritis possibly viral. Improving clinically. Peripheral neuropathy secondary to chronic alcoholism Possible alcohol withdrawal symptoms. Bipolar disorder Essential hypertension GERD Peripheral vascular disease COPD stable in a patient with history of smoking Anxiety Patient has a legal guardian Plan: Patient will be continued on symptomatic management for nausea and vomiting. Continue with PPI. Patient tolerated full liquid diet and advance it to dysphagia level III diet. Continue with thiamine and multivitamin. Patient is also on Neurontin. Patient says that he does not have a place to go. Patient has a legal guardian. Social work is looking into finding him assisted living.
[2017-11-08] MEDS: TAMSULOSIN 0.4 MG CAP.ER.24H PO SCH (20:26)
[2017-11-08] MEDS: ONDANSETRON 4 MG/2 ML VIAL IVP PRN (20:26)
[2017-11-08] MEDS: clonazePAM 0.5 MG TAB PO SCH (20:26)
[2017-11-08] MEDS: traZODone HCL 50 MG TAB PO SCH (20:27)
[2017-11-09] MEDS: HYDROcodone/APAP 5-325MG 1 EACH TAB PO PRN ×3 (05:58→20:32)
[2017-11-09] MEDS: ONDANSETRON 4 MG/2 ML VIAL IVP PRN ×2 (08:35→17:01)
[2017-11-09] MEDS: MULTIVITAMINS, THERA 1 EACH TAB PO SCH (08:37)
[2017-11-09] MEDS: GABAPENTIN 300 MG CAP PO SCH ×3 (08:37→20:32)
[2017-11-09] MEDS: THIAMINE 100 MG TAB PO SCH ×2 (08:37→15:02)
[2017-11-09] MEDS: FOLIC ACID 1 MG TAB PO SCH (08:37)
[2017-11-09] MEDS: CALCIUM CARBONATE LIQUID 500 MG/5 ML CUP PO SCH ×3 (08:37→16:46)
[2017-11-09] MEDS: PYRIDOXINE 50 MG TAB PO SCH (08:37)
[2017-11-09] MEDS: FLUoxetine HCL 20 MG CAP PO SCH (08:37)
[2017-11-09] MEDS: NICOTINE 14MG/24HR PATCH TRANSDERM SCH (08:38)
[2017-11-09] MEDS: LISINOPRIL-HCTZ 20-12.5 MG 1 EACH TAB PO SCH (08:38)
[2017-11-09] MEDS: PANTOPRAZOLE 40 MG/10 ML VIAL IVP SCH (08:38)
[2017-11-09 09:11] LABS: Anion Gap 12 mmol/L; Blood Urea Nitrogen 11 mg/dL (9-20); Calcium 9.3 mg/dL (8.4-10.2); Carbon Dioxide 28 mmol/L (22-30); Chloride 102 mmol/L (98-107); Glucose 95 mg/dL (74-99); Potassium 4.1 mmol/L (3.5-5.1); Sodium 142 mmol/L (137-145)
[2017-11-09 09:29] LABS: Basophils % (A) 0 %; Eosinophils # (A) 0.1 k/uL (0-0.7); Eosinophils % (A) 3 %; HCT 31.9 % (39.0-53.0); HGB 11.2 gm/dL (13.0-17.5); Lymphocytes # (A) 0.9 k/uL (1.0-4.8); Lymphocytes % (A) 25 %; MCH 32.2 pg (25.0-35.0); MCHC 35.1 g/dL (31.0-37.0); MCV 91.6 fL (80.0-100.0); Mean Platelet Volume 7.5; Monocytes # (A) 0.3 k/uL (0-1.0); Monocytes % (A) 8 %; Neutrophils # (A) 2.2 k/uL (1.3-7.7); Neutrophils % (A) 60 %; Platelet Count 149 k/uL (150-450); RBC 3.49 m/uL (4.30-5.90); RDW 12.7 % (11.5-15.5); WBC 3.6 k/uL (3.8-10.6)
[2017-11-09] MEDS: METOPROLOL TARTRATE 50 MG TAB PO SCH ×2 (09:48→20:35)
[2017-11-09] MEDS: PANTOPRAZOLE SODIUM 40 MG GRANULE PKT PO SCH (18:03)
[2017-11-09] MEDS: TAMSULOSIN 0.4 MG CAP.ER.24H PO SCH (20:32)
[2017-11-09] MEDS: traZODone HCL 50 MG TAB PO SCH (20:32)
[2017-11-09] MEDS: clonazePAM 0.5 MG TAB PO SCH (20:32)
[2017-11-09] MEDS ORDERED: PANTOPRAZOLE SODIUM 40 MG GRANULE PKT PO SCH (21:00)
[2017-11-09 23:06] VITALS: RESP 18
[2017-11-10 05:56] VITALS: BP 153/77; PULSE 66; TEMP 98.2
[2017-11-10] MEDS: NICOTINE 14MG/24HR PATCH TRANSDERM SCH (07:52)
[2017-11-10] MEDS: PANTOPRAZOLE SODIUM 40 MG GRANULE PKT PO SCH (07:52)
[2017-11-10] MEDS: CALCIUM CARBONATE LIQUID 500 MG/5 ML CUP PO SCH (07:52)
[2017-11-10] MEDS: FLUoxetine HCL 20 MG CAP PO SCH (07:52)
[2017-11-10] MEDS: FOLIC ACID 1 MG TAB PO SCH (07:52)
[2017-11-10] MEDS: PYRIDOXINE 50 MG TAB PO SCH (07:52)
[2017-11-10] MEDS: LISINOPRIL-HCTZ 20-12.5 MG 1 EACH TAB PO SCH (07:52)
[2017-11-10] MEDS: GABAPENTIN 300 MG CAP PO SCH (07:52)
[2017-11-10] MEDS: METOPROLOL TARTRATE 50 MG TAB PO SCH (07:53)
[2017-11-10] MEDS: MULTIVITAMINS, THERA 1 EACH TAB PO SCH (07:53)
[2017-11-10] MEDS: HYDROcodone/APAP 5-325MG 1 EACH TAB PO PRN (07:57)
--- NOTE | 2017-11-10 23:39 | P.PN ---
Subjective Progress Note Date: 11/09/17 Principal diagnosis: Acute gastroenteritis Patient is a 62-year-old male with a history of alcohol abuse hypertension, GERD and multiple other medical problems admitted to hospital with nausea and vomiting and diarrhea. Currently being treated for acute gastroenteritis and possible alcohol withdrawal. Patient was recently released from rehab. 11/07/2017 Today patient denied any complaints of chest pain or shortness of breath. Still having nausea and 1 episode of vomiting. Says that he feels very weak. Diarrhea resolved at this time. Patient was started on clear liquids and advance as tolerated. Patient wants to change her pain medication to [place] and Klonopin 2 twice a day. No fever no chills. No complaints of abdominal pain at this time. 11/08/2017 Patient is able to tolerate diet today. No episodes of vomiting. Still nauseated as per patient. Otherwise improved anxiety. No fever no chills. No chest pain no shortness of breath. Leg pain is better otherwise. No acute overnight issues. Anticipate discharge tomorrow once is seen by social work and arrange for assisted living. 11/09/2017 Patient is tolerating diet. No nausea vomiting. Anxiety is much improved now. Caregiver is planning to pick him up tomorrow. All other review of systems negative. Current medications reviewed Objective - Vital Signs Vital signs: Vital Signs Temp 98.6 F 11/09/17 15:54 Pulse 59 L 11/09/17 15:54 Resp 19 11/09/17 15:54 BP 129/74 11/09/17 15:54 Pulse Ox 99 11/09/17 15:54 Intake & Output 11/08/17 11/09/17 11/09/17 18:59 06:59 18:59 Other: Voiding Method Toilet # Voids 1 2 2 # Bowel Movements 1 - Exam PHYSICAL EXAMINATION: Patient is lying in the bed comfortably, no acute distress, awake alert and oriented.. Patient seems anxious and shaky HEENT: Normocephalic. Neck is supple. Pupils reactive. Nostrils clear. Oral cavity is moist. Ears reveal no drainage. Neck reveals no JVD, carotid bruits, or thyromegaly. CHEST EXAMINATION: Trachea is central. Symmetrical expansion. Lung romano clear to auscultation and percussion. CARDIAC: Normal S1, S2 with no gallops. No murmurs ABDOMEN: Soft. Bowel sounds normal. No organomegaly. No abdominal bruits. Extremities: reveal no edema. No clubbing or cyanosis Neurologically awake, alert, oriented x3 with well-coordinated movements. No focal deficits noted Skin: No rash or skin lesions. Psychiatric: Coperative. Nonsuicidal Musculoskeletal: No joint swelling or deformity. Normal range of motion. - Labs CBC & Chem 7: 11/09/17 07:35 11/09/17 07:35 Labs: Abnormal Lab Results - Last 24 Hours (Table) 11/09/17 Range/Units 07:35 WBC 3.6 L (3.8-10.6) k/uL RBC 3.49 L (4.30-5.90) m/uL Hgb 11.2 L (13.0-17.5) gm/dL Hct 31.9 L (39.0-53.0) % Plt Count 149 L (150-450) k/uL Lymphocytes # 0.9 L (1.0-4.8) k/uL Assessment and Plan Assessment: Acute severe gastroenteritis possibly viral. Improving clinically. Peripheral neuropathy secondary to chronic alcoholism Possible alcohol withdrawal symptoms. Bipolar disorder Essential hypertension GERD Peripheral vascular disease COPD stable in a patient with history of smoking Anxiety Patient has a legal guardian Plan: Patient will be continued on symptomatic management for nausea and vomiting. Continue with PPI. Patient tolerated full liquid diet and advance it to dysphagia level III diet. Continue with thiamine and multivitamin. Patient is also on Neurontin. Patient says that he does not have a place to go. Patient has a legal guardian and caregiver. Patient's caregiver is planning to pick him up.
--- NOTE | 2017-11-10 23:41 | P.DS ---
Providers Date of admission: 11/05/17 05:38 Expected date of discharge: 11/10/17 Attending physician: Damien Bruce [facility] Course: Acute severe gastroenteritis possibly viral. Improving clinically. Peripheral neuropathy secondary to chronic alcoholism alcohol withdrawal symptoms. Bipolar disorder Essential hypertension GERD Peripheral vascular disease COPD stable in a patient with history of smoking Anxiety Patient has a legal guardian Patient is a 62-year-old male with a history of alcohol abuse hypertension, GERD and multiple other medical problems admitted to hospital with nausea and vomiting and diarrhea. Currently being treated for acute gastroenteritis and possible alcohol withdrawal. Patient was recently released from rehab. 11/07/2017 Today patient denied any complaints of chest pain or shortness of breath. Still having nausea and 1 episode of vomiting. Says that he feels very weak. Diarrhea resolved at this time. Patient was started on clear liquids and advance as tolerated. Patient wants to change her pain medication to [place] and Klonopin 2 twice a day. No fever no chills. No complaints of abdominal pain at this time. 11/08/2017 Patient is able to tolerate diet today. No episodes of vomiting. Still nauseated as per patient. Otherwise improved anxiety. No fever no chills. No chest pain no shortness of breath. Leg pain is better otherwise. No acute overnight issues. Anticipate discharge tomorrow once is seen by social work and arrange for assisted living. 11/09/2017 Patient is tolerating diet. No nausea vomiting. Anxiety is much improved now. Caregiver is planning to pick him up tomorrow. 11/10/2017 Patient denied any new complaints today. Stable to be discharged. Patient was continued on symptomatic management for nausea and vomiting. Continue with PPI. Patient tolerated full liquid diet and advance it to dysphagia level III diet. Continue with thiamine and multivitamin. Patient is also on Neurontin. Patient says that he does not have a place to go. Patient has a legal guardian and caregiver. Patient's caregiver is planning to pick him up. Discharge physical examination was done and vitals reviewed. Patient Condition at Discharge: Good Plan - Discharge Summary New Discharge Prescriptions: Continue Tamsulosin HCl [Flomax] 0.4 mg PO HS Multivitamins, Thera [Multivitamin (formulary)] 1 tab PO DAILY Folic Acid 1 mg PO DAILY Thiamine HCl [Vitamin B-1] 100 mg PO BID@1200,1700 clonazePAM [KlonoPIN] 0.5 mg PO HS #14 tab FLUoxetine HCL [PROzac] 20 mg PO DAILY cap Pantoprazole [Protonix] 40 mg PO DAILY tablet. traZODone HCL [Desyrel] 50 mg PO HS tab Lisinopril-Hctz 20-12.5 mg [Zestoretic 20-12.5] 1 tab PO DAILY #1 tab Gabapentin [Neurontin] 300 mg PO TID HYDROcodone/APAP 10-325MG [[place] 10-325] 1 tab PO Q6H PRN PRN Reason: Pain No Action cloNIDine HCL [Catapres] 0.1 mg PO TID Discharge Medication List Tamsulosin HCl [Flomax] 0.4 mg PO HS 03/26/17 [History] Folic Acid 1 mg PO DAILY 10/05/17 [History] Multivitamins, Thera [Multivitamin (formulary)] 1 tab PO DAILY 10/05/17 [History ] Thiamine HCl [Vitamin B-1] 100 mg PO BID@1200,1700 10/05/17 [History] cloNIDine HCL [Catapres] 0.1 mg PO TID 10/05/17 [History] FLUoxetine HCL [PROzac] 20 mg PO DAILY cap 10/09/17 [Rx] Lisinopril-Hctz 20-12.5 mg [Zestoretic 20-12.5] 1 tab PO DAILY #1 tab 10/09/17 [ Rx] Pantoprazole [Protonix] 40 mg PO DAILY tablet. 10/09/17 [Rx] clonazePAM [KlonoPIN] 0.5 mg PO HS #14 tab 10/09/17 [Rx] traZODone HCL [Desyrel] 50 mg PO HS tab 10/09/17 [Rx] Gabapentin [Neurontin] 300 mg PO TID 11/05/17 [History] HYDROcodone/APAP 10-325MG [[place] 10-325] 1 tab PO Q6H PRN 11/05/17 [History] Follow up Appointment(s)/Referral(s): Remington Mustafa MD [Primary Care Provider] - 1-2 days (pt already has follow-up appointment made) Patient Instructions/Handouts: Acute Nausea and Vomiting (DC) Activity/Diet/Wound Care/Special Instructions: activity as tolerated heart healthy/bland diet as tolerated safety discharge discussed with Legal Guardian-eliane (sister) [phone] Discharge Disposition: HOME SELF-CARE
== END 2017-11-10 10:40 | disposition home or self-care (01) ==
LOC: EC 00:53 → 4MS4W 05:38
PROVIDERS: ADMIT Hospitalist; ATTEND Hospitalist
DX: K52.9 Noninfective gastroenteritis and colitis, unspecified (principal); G62.1 Alcoholic polyneuropathy; F10.20 Alcohol dependence, uncomplicated; F31.9 Bipolar disorder, unspecified; I10 Essential (primary) hypertension; K21.9 Gastro-esophageal reflux disease without esophagitis; I73.9 Peripheral vascular disease, unspecified; J44.9 Chronic obstructive pulmonary disease, unspecified; Z87.891 Personal history of nicotine dependence; F41.9 Anxiety disorder, unspecified; M79.606 Pain in leg, unspecified; E78.5 Hyperlipidemia, unspecified; K85.90 Acute pancreatitis without necrosis or infection, unspecified; G89.29 Other chronic pain; F90.9 Attention-deficit hyperactivity disorder, unspecified type; Z89.421 Acquired absence of other right toe(s); Z88.0 Allergy status to penicillin; Z79.899 Other long term (current) drug therapy; Z87.01 Personal history of pneumonia (recurrent); Z86.14 Personal history of Methicillin resistant Staphylococcus aureus infection; Z87.11 Personal history of peptic ulcer disease; Z83.3 Family history of diabetes mellitus; Z82.3 Family history of stroke
CPT/HCPCS: 99285 ×2; 96374 ×2; 96375 ×4; 96376 ×6; 96361; 36415; 93005; 97161; 97165; 80053; 80048 ×4; 82150; 83605; 83690; 84484; 85025 ×2; 81003; 80306; 87502; 74022; G0378 ×6; J2270; J2765; J2405 ×4; C9113 ×3

== ENCOUNTER 2019-09-14 12:02 | Inpatient (IN) | payer MEDICARE, OTHER ==
[2019-09-14] MEDS ORDERED: ONDANSETRON 4 MG/2 ML VIAL IVP STA (13:00)
[2019-09-14] MEDS ORDERED: SODIUM CHLORIDE 0.9% 1,000 ML IV STA (13:00)
[2019-09-14 14:20] LABS: Basophils # (A) 0.2 k/uL (0-0.2); Basophils % (A) 2 %; Eosinophils # (A) 0.2 k/uL (0-0.7); Eosinophils % (A) 2 %; HCT 30.7 % (39.0-53.0); HGB 10.2 gm/dL (13.0-17.5); Lymphocytes # (A) 0.9 k/uL (1.0-4.8); Lymphocytes % (A) 7 %; MCH 29.4 pg (25.0-35.0); MCHC 33.3 g/dL (31.0-37.0); MCV 88.2 fL (80.0-100.0); Mean Platelet Volume 6.5; Monocytes # (A) 0.6 k/uL (0-1.0); Monocytes % (A) 5 %; Neutrophils # (A) 10.5 k/uL (1.3-7.7); Neutrophils % (A) 84 %; Platelet Count 423 k/uL (150-450); RBC 3.48 m/uL (4.30-5.90); RDW 14.4 % (11.5-15.5); WBC 12.5 k/uL (3.8-10.6)
[2019-09-14 14:28] LABS: Albumin 3.8 g/dL (3.5-5.0); Calcium 8.9 mg/dL (8.4-10.2); Potassium 4.4 mmol/L (3.5-5.1); Total Bilirubin 0.6 mg/dL (0.2-1.3); Total Protein 8.1 g/dL (6.3-8.2)
--- NOTE | 2019-09-14 14:28 | ED ---
Extremity Problem HPI - General Chief complaint: Extremity Problem,Nontraumatic Stated complaint: MRSA Time Seen by Provider: 09/14/19 12:51 Source: patient Mode of arrival: ambulatory Limitations: no limitations - History of Present Illness Initial comments: Patient is a 64-year-old male presenting to emergency Department with complaints of sores on both feet. Patient has long history of peripheral neuropathy with partial amputations on the right foot. Patient states he's been dealing with chronic wounds on the bottom of his right foot however he noticed 2 new wounds, one on his right foot, one on his left foot developed in last few days. He is also complaining of fatigue, nausea, vomiting and overall just not feeling well that has developed over the last 2 days. Patient denies any fever or chills, abdominal pain. Patient states he has a history of MRSA. He has been seeing his PCP for his wounds however he was recently referred to a core blower operator that he was supposed to see tomorrow however he is just not feeling well so he wanted to be seen today. He has no other complaints at this time. Upon arrival to the ER, his vital signs are stable. - Related Data Home Medications Medication Instructions Recorded Confirmed Tamsulosin HCl [Flomax] 0.4 mg PO HS 03/26/17 11/05/17 Folic Acid 1 mg PO DAILY 10/05/17 11/05/17 Multivitamins, Thera [Multivitamin 1 tab PO DAILY 10/05/17 11/05/17 (formulary)] Thiamine HCl [Vitamin B-1] 100 mg PO BID@1200,1700 10/05/17 11/05/17 cloNIDine HCL [Catapres] 0.1 mg PO TID 10/05/17 11/05/17 Gabapentin [Neurontin] 300 mg PO TID 11/05/17 11/05/17 HYDROcodone/APAP 10-325MG [[place] 1 tab PO Q6H PRN 11/05/17 11/05/17 10-325] Previous Rx's Medication Instructions Recorded FLUoxetine HCL [PROzac] 20 mg PO DAILY cap 10/09/17 Lisinopril-Hctz 20-12.5 mg 1 tab PO DAILY #1 tab 10/09/17 [Zestoretic 20-12.5] Pantoprazole [Protonix] 40 mg PO DAILY tablet. 10/09/17 clonazePAM [KlonoPIN] 0.5 mg PO HS #14 tab 10/09/17 traZODone HCL [Desyrel] 50 mg PO HS tab 10/09/17 Allergies Allergy/AdvReac Type Severity Reaction Status Date / Time Penicillins Allergy Dyspnea, Verified 11/05/17 09:57 HIVES, THROAT SWELLING Review of Systems ROS Statement: Those systems with pertinent positive or pertinent negative responses have been documented in the HPI. ROS Other: All systems not noted in ROS Statement are negative. Past Medical History Past Medical History: COPD, GERD/Reflux, Hyperlipidemia, Hypertension, Pneumonia, Skin Disorder, Vascular Disorder Additional Past Medical History / Comment(s): Pt recently admitted to [facility] on 09/07/17 with gait dysfunction, fall with L clavicle fracture, ETOH abuse, acute pancreatitis, acute renal failure which resolved, electrolyte disturbances. 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 History of Any Multi-Drug Resistant Organisms: MRSA Date of last positivie culture/infection: 04/22/17 MDRO Source:: TOE Past Surgical History: Hernia Repair Additional Past Surgical History / Comment(s): Amputation of the fourth and fifth toes on the right through the metatarsal heads, multiple I&D to nonhealing wounds on the R foot, repair of perforated ucler of stomach, EGD/colonoscopy, PICC lines in and out. Past Anesthesia/Blood Transfusion Reactions: Motion Sickness Additional Past Anesthesia/Blood Transfusion Reaction / Comment(s): claustrophobia Past Psychological History: ADD/ADHD, Anxiety, Depression Smoking Status: Current every day smoker Past Alcohol Use History: None Reported Past Drug Use History: Marijuana - Past Family History Mother Family Medical History: CVA/TIA, Diabetes Mellitus, Vascular Disorder Additional Family Medical History / Comment(s): emotional problems. age 64 of cva Father Family Medical History: Hypertension Additional Family Medical History / Comment(s): age 38 from mva General Exam - General Exam Comments Initial Comments: GENERAL: Patient appears pale, disheveled, fatigue HEAD: Atraumatic, normocephalic. EYES: Pupils equal round and reactive to light, extraocular movements intact, sclera anicteric, conjunctiva are normal. ENT: TMs normal, nares patent, oropharynx clear without exudates. Moist mucous membranes. NECK: Normal range of motion, supple without lymphadenopathy or JVD. LUNGS: Breath sounds clear to auscultation bilaterally and equal. No wheezes rales or rhonchi. HEART: Regular rate and rhythm without murmurs, rubs or gallops. ABDOMEN: Soft, nontender, normoactive bowel sounds. No guarding, no rebound. No masses appreciated. EXTREMITIES: Peripheral neuropathy of bilateral lower extremities, normal range of motion of bilateral feet and ankle. Patient has history of toe amputation on the right foot. NEUROLOGICAL: Normal speech, normal gait. PSYCH: Normal mood, normal affect. SKIN: Warm, Dry, normal turgor, no rashes. Patient has a large, 3cm, open ulcer on the bottom of his right heel approximately 3 cm open ulcer on the right plantar aspect. Patient also has a large 3 cm open ulcer on the left heel and 2 cm open ulcer on the lateral aspect of the left foot. Wounds have strong odor. Areas have surrounding erythema and active drainage. Limitations: no limitations Course Vital Signs 09/14/19 12:12 Temperature 97.7 F Pulse Rate 52 L Respiratory 18 Rate Blood Pressure 140/81 O2 Sat by Pulse 99 Oximetry Medical Decision Making - Medical Decision Making Patient is a 64-year-old male presenting with bilateral foot ulcers with 2 new wounds in the last few days. He is also nauseous, fatigued, vomiting. Vital signs stable upon arrival. Exam reveals 2 large ulcers on each foot with strong odor. A wound culture and blood cultures are pending. Labs reveal leukocytosis at 12.5, ESR is 114, CRP is 185. X-ray of both feet suggests a soft tissue wounds however no signs of osteomyelitis at this time. Patient was given fluids and antibiotics. Patient will be admitted for wound care, continuation of IV antibiotics. Patient was accepted by Dr. Bruce, with consult to wound care and infectious disease. Patient is in agreement with this plan of care. Case is discussed with Dr. Leblanc. - Lab Data Result diagrams: 09/14/19 14:05 09/14/19 14:05 Lab Results 09/14/19 09/14/19 09/14/19 Range/Units 14:05 14:05 14:05 WBC 12.5 H (3.8-10.6) k/uL RBC 3.48 L (4.30-5.90) m/uL Hgb 10.2 L (13.0-17.5) gm/dL Hct 30.7 L (39.0-53.0) % MCV 88.2 (80.0-100.0) fL MCH 29.4 (25.0-35.0) pg MCHC 33.3 (31.0-37.0) g/dL RDW 14.4 (11.5-15.5) % Plt Count 423 (150-450) k/uL Neutrophils % 84 % Lymphocytes % 7 % Monocytes % 5 % Eosinophils % 2 % Basophils % 2 % Neutrophils # 10.5 H (1.3-7.7) k/uL Lymphocytes # 0.9 L (1.0-4.8) k/uL Monocytes # 0.6 (0-1.0) k/uL Eosinophils # 0.2 (0-0.7) k/uL Basophils # 0.2 (0-0.2) k/uL ESR Cancelled Sodium 132 L (137-145) mmol/L Potassium 4.4 (3.5-5.1) mmol/L Chloride 95 L (98-107) mmol/L Carbon Dioxide 23 (22-30) mmol/L Anion Gap 14 mmol/L BUN 19 (9-20) mg/dL Creatinine 1.64 H (0.66-1.25) mg/dL Est GFR (CKD-EPI)AfAm 50 (>60 ml/min/1.73 sqM) Est GFR (CKD-EPI)NonAf 44 (>60 ml/min/1.73 sqM) Glucose 119 H (74-99) mg/dL Calcium 8.9 (8.4-10.2) mg/dL Total Bilirubin 0.6 (0.2-1.3) mg/dL AST 21 (17-59) U/L ALT 8 (4-49) U/L Alkaline Phosphatase 104 (38-126) U/L C-Reactive Protein 185.5 H (<10.0) mg/L Total Protein 8.1 (6.3-8.2) g/dL Albumin 3.8 (3.5-5.0) g/dL Urine Color Yellow Urine Appearance Clear (Clear) Urine pH 5.0 (5.0-8.0) Ur Specific [place] 1.014 (1.001-1.035) Urine Protein Trace H (Negative) Urine Glucose (UA) Negative (Negative) Urine Ketones Negative (Negative) Urine Blood Negative (Negative) Urine Nitrite Negative (Negative) Urine Bilirubin Negative (Negative) Urine Urobilinogen 2.0 (<2.0) mg/dL Ur Leukocyte Esterase Negative (Negative) 09/14/19 Range/Units 14:56 WBC (3.8-10.6) k/uL RBC (4.30-5.90) m/uL Hgb (13.0-17.5) gm/dL Hct (39.0-53.0) % MCV (80.0-100.0) fL MCH (25.0-35.0) pg MCHC (31.0-37.0) g/dL RDW (11.5-15.5) % Plt Count (150-450) k/uL Neutrophils % % Lymphocytes % % Monocytes % % Eosinophils % % Basophils % % Neutrophils # (1.3-7.7) k/uL Lymphocytes # (1.0-4.8) k/uL Monocytes # (0-1.0) k/uL Eosinophils # (0-0.7) k/uL Basophils # (0-0.2) k/uL ESR 114 H Sodium (137-145) mmol/L Potassium (3.5-5.1) mmol/L Chloride (98-107) mmol/L Carbon Dioxide (22-30) mmol/L Anion Gap mmol/L BUN (9-20) mg/dL Creatinine (0.66-1.25) mg/dL Est GFR (CKD-EPI)AfAm (>60 ml/min/1.73 sqM) Est GFR (CKD-EPI)NonAf (>60 ml/min/1.73 sqM) Glucose (74-99) mg/dL Calcium (8.4-10.2) mg/dL Total Bilirubin (0.2-1.3) mg/dL AST (17-59) U/L ALT (4-49) U/L Alkaline Phosphatase (38-126) U/L C-Reactive Protein (<10.0) mg/L Total Protein (6.3-8.2) g/dL Albumin (3.5-5.0) g/dL Urine Color Urine Appearance (Clear) Urine pH (5.0-8.0) Ur Specific [place] (1.001-1.035) Urine Protein (Negative) Urine Glucose (UA) (Negative) Urine Ketones (Negative) Urine Blood (Negative) Urine Nitrite (Negative) Urine Bilirubin (Negative) Urine Urobilinogen (<2.0) mg/dL Ur Leukocyte Esterase (Negative) Disposition Clinical Impression: Decubitus ulcer of both feet, stage 3, Cellulitis, Weakness Disposition: ADMITTED IP TO THIS HOSP Condition: Stable Is patient prescribed a controlled substance at d/c from ED?: No Decision Date: 09/14/19 Decision Time: 15:32
--- NOTE | 2019-09-14 14:40 | XR ---
EXAMINATION TYPE: XR foot limited bilateral DATE OF EXAM: 09/14/2019 COMPARISON: 03/26/2017 HISTORY: Bilateral foot wounds TECHNIQUE: Bilateral feet are examined in 2 projections each. FINDINGS: Left foot: There is prior resection of the distal fifth metatarsal. No acute fractures are evident. Joint spaces are preserved. Plantar and Achilles tendon calcaneal heel spurs are present. There is a large calcaneal heel wound with air. No cortical disruption is evident to suggest osteomye litis radiographically. Hammertoes are present. Right foot: There is amputation of the distal phalanx great toe there may be amputation of the distal phalanx second digit. There is indentation of the distal portion proximal phalanx third digit. There is amputation of the proximal fourth and fifth metatarsals. Soft tissue swelling is present. There i s a soft tissue wound over the inferior aspect of the right foot. Plantar calcaneal heel spur is pres ent. No acute cortical erosion is evident suggest osteomyelitis. IMPRESSION: 1. Bilateral postsurgical changes within the feet. 2. Soft tissue wound within the right plantar foot in the heel pad of the left foot. No adjacent linda ical erosion to suggest osteomyelitis is radiographically apparent.
[2019-09-14 14:42] LABS: Appearance,Urine Clear (Clear); Bilirubin,Urine Negative (Negative); Blood,Urine Negative (Negative); Color,Urine Yellow; Glucose,Urine (UA) Negative (Negative); Ketones,Urine Negative (Negative); Leukocyte Esterase,Urine Negative (Negative); Nitrite,Urine Negative (Negative); Protein,Urine Trace (Negative); Specific Gravity,Urine 1.014 (1.001-1.035)
[2019-09-14 15:06] LABS: C Reactive Protein 185.5 mg/L (<10.0)
[2019-09-14] MEDS ORDERED: NALOXONE 0.4 MG/ML 1 ML VIAL IV PRN (15:26)
[2019-09-14] MEDS ORDERED: SODIUM CHLORIDE 0.9% 1,000 ML IV SCH (15:30)
[2019-09-14] MEDS ORDERED: VANCOMYCIN IV PER PHARMACY 1 EACH MISC MISCELLANE PRN (15:30)
[2019-09-14] MEDS ORDERED: VANCOMYCIN 1,750 MG in SODIUM CHLORIDE 0.9% 500 ML 500 ML IVPB ONE (16:00)
[2019-09-14] MEDS: ACETAMINOPHEN TAB 325 MG TAB PO PRN (20:41)
[2019-09-14] MEDS ORDERED: traZODone HCL 100 MG TAB PO SCH (21:00)
[2019-09-14] MEDS: cloNIDine HCL 0.1 MG TAB PO SCH (21:00)
[2019-09-14] MEDS: GABAPENTIN 300 MG CAP PO SCH (21:02)
[2019-09-14] MEDS: traMADol 50 MG TAB PO PRN (21:03)
[2019-09-14] MEDS: traZODone HCL 100 MG TAB PO SCH (21:03)
[2019-09-14] MEDS: clonazePAM 0.5 MG TAB PO SCH (21:03)
--- NOTE | 2019-09-14 23:22 | P.HPIM ---
History of Present Illness H&P Date: 09/14/19 Chief Complaint: foot wound History of presenting complaint: This is a pleasant 64-year-old patient of Dr. Norris. Chronic stable medical conditions include COPD, peripheral artery disease, GERD, hypertension, bipolar disorder. Patient has better. Neuropathy from alcoholism. Patient was a heavy drinking up to 2018. Patient continues to smoke. Patient's brother Sotero is a legal guardian. Patient's had foot wounds before and has been followed by been troubled the past. With surgery for the same. Patient does develop what he describes as blisters for 1 week. In his feet have become more painful. With foul drainage. In the ER was discovered to have wounds of both the plantar aspects of both feet. Rather significant. Antibiotics were started and infectious disease was consulted. Patient has been walking on the same. Review of systems: GEN.: None EYES: None HEENT: None NECK: None RESPIRATORY: Some wheezing shortness of breath CARDIOVASCULAR: None GASTROINTESTINAL: None GENITOURINARY: None MUSCULOSKELETAL: None LYMPHATICS: None HEMATOLOGICAL: None PSYCHIATRY: None NEUROLOGICAL: Decreased peripheral sensation Past medical history to include: COPD, peripheral artery disease, lower extremity wounds, GERD, hypertension, bipolar disorder, peripheral neuropathy from alcoholism, Social history: Patient stopped drinking heavily on: 2018. Smokes about half a pack a for many years. brother Sotero is a legal guardian Physical examination: VITAL SIGNS: 97.7, 52, 18, 140/81, 99% room air GENERAL: BMI 25.7, laying bed awake not in distress. EYES: Pupils equal. Conjunctiva normal. HEENT: External appearance of nose and ears normal, oral cavity grossly normal. NECK: JVD not raised; masses not palpable. HEART: First and second heart sounds are normal; no edema. LUNGS: Respiratory rate increased, decreased breath sounds prolonged expiration and some wheezing. ABDOMEN: Soft, nontender, liver spleen not palpable, no masses palpable. PSYCH: Alert and oriented x3; mood and affect normal. NEUROLOGICAL: [Cranial nerves grossly intact; no facial asymmetry, decreased sensation distally LYMPHATICS: No lymph nodes palpable in the axilla and neck LOWER extremity: Wounds on the plantar aspect of both feet, pictures have been taken to INVESTIGATIONS, reviewed in the clinical context: -White count 12.5 hemoglobin 10.2 platelets 423 potassium 4.4 creatinine 1.64 Patient's last creatinine was 0.93 documented in November 2017 ESR 114 Assessment: -Bilateral foot wounds especially in the plantar aspect deep in a patient with known peripheral artery disease and peripheral neuropathy. Need to rule out osteomyelitis. Also no surrounding cellulitis -COPD in a current smoker -Chronic nicotine dependence patient cigarette smoker -Peripheral artery disease with prior foot surgery -GERD -Hypertension -Bipolar disorder -Peripheral neuropathy secondary to history of alcoholism Plan: Patient started on vancomycin. Given the renal failure were discontinued the same was put the patient on daptomycin. Home medications resumed. Patient be started on bronchodilators. Consultation to vascular surgery will be done. Nicotine patch will be given. Care was discussed with the patient. ID is also being consulted. We'll also hydrate the patient repeat electrolytes in the morning. Check renal function. We'll also check renal ultrasound. Care was discussed with the patient. Past Medical History Past Medical History: COPD, GERD/Reflux, Hyperlipidemia, Hypertension, Pneumonia, Skin Disorder, Vascular Disorder Additional Past Medical History / Comment(s): Pt recently admitted to [facility] on 09/07/17 with gait dysfunction, fall with L clavicle fracture, ETOH abuse, acute p ancreatitis, acute renal failure which resolved, electrolyte disturbances. 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 History of Any Multi-Drug Resistant Organisms: MRSA Date of last positivie culture/infection: 04/22/17 MDRO Source:: TOE Past Surgical History: Hernia Repair Additional Past Surgical History / Comment(s): Amputation of the fourth and fi fth toes on the right through the metatarsal heads, multiple I&D to nonhealing wounds on the R foot, repair of perforated ucler of stomach, EGD/colonoscopy, PICC lines in and out. Past Anesthesia/Blood Transfusion Reactions: Motion Sickness Additional Past Anesthesia/Blood Transfusion Reaction / Comment(s): claustrophobia Past Psychological History: ADD/ADHD, Anxiety, Depression Smoking Status: Current every day smoker Past Alcohol Use History: None Reported Past Drug Use History: Marijuana - Past Family History Mother Family Medical History: CVA/TIA, Diabetes Mellitus, Vascular Disorder Additional Family Medical History / Comment(s): emotional problems. age 64 of cva Father Family Medical History: Hypertension Additional Family Medical History / Comment(s): age 38 from mva Medications and Allergies Home Medications Medication Instructions Recorded Confirmed Type Tamsulosin HCl [Flomax] 0.4 mg PO DAILY 03/26/17 09/14/19 History cloNIDine HCL [Catapres] 0.1 mg PO TID 10/05/17 09/14/19 History HYDROcodone/APAP 10-325MG [[place] 1 tab PO QID 11/05/17 09/14/19 History 10-325] Citalopram Hydrobromide [CeleXA] 20 mg PO DAILY 09/14/19 09/14/19 History Gabapentin 600 mg PO TID 09/14/19 09/14/19 History Lisinopril 20 mg PO DAILY 09/14/19 09/14/19 History Ranitidine HCl [Zantac] 150 mg PO BID 09/14/19 09/14/19 History clonazePAM [KlonoPIN] 0.5 mg PO BID 09/14/19 09/14/19 History traZODone HCL [Desyrel] 100 mg PO HS 09/14/19 09/14/19 History Allergies Allergy/AdvReac Type Severity Reaction Status Date / Time Penicillins Allergy Dyspnea, Verified 09/14/19 17:14 HIVES, THROAT SWELLING Physical Exam Vitals: Vital Signs Temp Pulse Resp BP Pulse Ox 09/14/19 20:00 91 16 139/81 98 09/14/19 17:00 97.7 F 60 18 140/76 98 09/14/19 12:12 97.7 F 52 L 18 140/81 99 Intake and Output 09/14/19 09/14/19 09/15/19 14:59 22:59 06:59 Other: Weight 90.718 kg Results CBC & Chem 7: 09/14/19 14:05 09/14/19 14:05 Labs: Abnormal Lab Results - Last 24 Hours (Table) 09/14/19 09/14/19 09/14/19 Range/Units 14:05 14:05 14:05 WBC 12.5 H (3.8-10.6) k/uL RBC 3.48 L (4.30-5.90) m/uL Hgb 10.2 L (13.0-17.5) gm/dL Hct 30.7 L (39.0-53.0) % Neutrophils # 10.5 H (1.3-7.7) k/uL Lymphocytes # 0.9 L (1.0-4.8) k/uL ESR (0-15) mm/hr Sodium 132 L (137-145) mmol/L Chloride 95 L (98-107) mmol/L Creatinine 1.64 H (0.66-1.25) mg/dL Glucose 119 H (74-99) mg/dL C-Reactive Protein 185.5 H (<10.0) mg/L Urine Protein Trace H (Negative) 09/14/19 Range/Units 14:56 WBC (3.8-10.6) k/uL RBC (4.30-5.90) m/uL Hgb (13.0-17.5) gm/dL Hct (39.0-53.0) % Neutrophils # (1.3-7.7) k/uL Lymphocytes # (1.0-4.8) k/uL ESR 114 H (0-15) mm/hr Sodium (137-145) mmol/L Chloride (98-107) mmol/L Creatinine (0.66-1.25) mg/dL Glucose (74-99) mg/dL C-Reactive Protein (<10.0) mg/L Urine Protein (Negative) Microbiology - Last 24 Hours (Table) 09/14/19 16:38 Wound Culture - Preliminary Foot - Right 09/14/19 13:35 Wound Culture - Preliminary Foot - Left
[2019-09-14] MEDS: ENOXAPARIN 40 MG/0.4 ML SYRINGE SQ SCH (23:35)
[2019-09-15] MEDS: LACTATED RINGERS 1,000 ML IV SCH ×4 (02:27→20:10)
[2019-09-15] MEDS: traMADol 50 MG TAB PO PRN ×2 (07:07→08:57)
[2019-09-15] MEDS ORDERED: VANCOMYCIN 1,500 MG in SODIUM CHLORIDE 0.9% 250 ML IVPB SCH (08:00)
--- NOTE | 2019-09-15 08:17 | CONS ---
CONSULTATION DATE OF SERVICE: 09/14/2019 REASON FOR CONSULTATION: Bilateral foot ulcer and cellulitis. HISTORY OF PRESENT ILLNESS: The patient is a 64-year-old male with past medical history significant for bilateral foot plantar ulcers which the patient has for months ago and apparently the patient has been managed by his primary care physician. The patient describing treatment is mostly debridement or removal of the surrounding callus. No other specific or any medicated dressing that the patient has been using. The patient presenting to the ER at [facility] with the chief complaints of new wounds on his right foot medial aspect that has apparently started as a blister. The patient denies any new or tight fitting shoes. The patient did have diabetic neuropathy, still complaining of discomfort to the right foot with more of a burning pain. Intensity about 6 out of 10 and no radiation with minimal drainage. With these symptoms, the patient presented to the [facility] ER. On arrival to the ER, the patient has been afebrile. White count was mildly elevated at 12.5, creatinine 1.64. Electrolytes have been normal. The patient did have x-rays of the bilateral foot apparently with evidence of postsurgical changes soft tissue within the right plantar foot in the . On the left foot, no adjacent cortical erosion. The patient has been started on vancomycin because of his PENICILLIN ALLERGY. Infectious Disease was consulted for further recommendations regarding antibiotic therapy. REVIEW OF SYSTEMS: Positive points have been mentioned in HPI. Rest of systems are negative. PAST MEDICAL HISTORY: Significant for COPD, hypertension, hyperlipidemia, pneumonia, bilateral foot wounds and ulcer and DTs, previous history of MRSA infection. PAST SURGICAL HISTORY: Amputation of the 4th and 5th toes on the right through metatarsal head, multiple I and D to nonhealing wound of the right foot, repair of perforated peptic ulcer, EGD, colonoscopy, and PICC line placement. SOCIAL HISTORY: Current everyday smoker. No drinking, but did admit to marijuana use. FAMILY HISTORY: Mother history of CVA, TIA, diabetes. Father history of hypertension, at age of 38 from motor vehicle accident. ALLERGIES: Allergies to PENICILLIN with a rash, no history of anaphylaxis. MEDICATIONS: Medications currently include the patient is on Tylenol, Celexa, Klonopin, Catapres, Neurontin, Zestril, Narcan, Zofran, Protonix, Ultram, Desyrel, vancomycin pharmacy to dose. Did receive a dose of Rocephin. PHYSICAL EXAMINATION: On examination, blood pressure 140/76, pulse of 62, temperature 97.7. He is 98% on room air. General description is a middle-aged male lying in bed in no distress. No tachypnea or accessory muscle of respiration use. HEENT: Examination shows pallor, no scleral icterus. Oral mucous membrane is dry. No pharyngeal erythema or thrush. NECK: Trachea central. No thyromegaly. LUNGS: Unlabored breathing, clear to auscultation anteriorly. No wheeze or crackle. HEART: S1, S2. Regular rate and rhythm. No added sounds. ABDOMEN: Soft, no tenderness. No guarding or rigidity. EXTREMITIES: No edema of feet. Examination of the right foot medial aspect did have a pustule with some purulent drainage which was cultured with surrounding swelling and redness and warm to touch. The patient also has a wound on the plantar aspect of the right foot, which currently looks clean with no slough tissue, surrounding swelling and redness. On the left foot, the heel appeared to have a plantar wound, did have slough tissue, but no surrounding redness or any foul-smelling drainage. NEUROLOGICAL: Patient is awake, alert, oriented x3. Mood and affect normal. LABS: Hemoglobin is 10.2, white count 12.5, BUN of 19, creatinine 1.64. Liver enzymes are normal. CRP elevated 185. UA has been negative. X-ray report as mentioned above. DIAGNOSTIC IMPRESSION AND PLAN: 1. Patient admitted to the hospital with bilateral foot plantar wound pressure ulcers in this patient who did have acute cellulitis of the right foot with a blister formation, possibly a shows no trauma. Will need to cover for the gram- positive with the likely pathogen less likely gram-negative infection. 2. Patient who doses have PENICILLIN allergy that limits the number of antibiotics safe to use. PLAN: 1. Local pustule culture on the right foot has been obtained to get further antibiotic therapy. 2. Vancomycin pharmacy to dose, target of 15, while watching his kidney function and vancomycin trough closely. 3. Dry Aquacel silver dressing to the right foot wound to be changed q.48 hours. 4. Medihoney to the left foot plantar wound with slough tissue followed by moist dressing to be changed daily. 5. We will follow up on clinical condition and culture to further adjust medication if needed. Thank you for this consultation. Will follow this patient along with you. MMODL / IJN: [id number] /
[2019-09-15] MEDS: IPRATROPIUM-ALBUTEROL 3 ML NEB INHALATION SCH ×3 (08:19→19:38)
--- NOTE | 2019-09-15 08:32 | US ---
EXAMINATION TYPE: US kidneys/renal and bladder DATE OF EXAM: 09/15/2019 COMPARISON: NONE CLINICAL HISTORY: assess for CKD. EXAM MEASUREMENTS: Right Kidney: 12.3 x 5.2 x 3.9 cm Left Kidney: 11.5 x 5.0 x 5.2 cm Right Kidney: No hydronephrosis or masses seen Left Kidney: No hydronephrosis or masses seen Bladder: wnl Bilateral Jets seen: No Very mild bilateral cortical renal thinning. There is no evidence for hydronephrosis at this point in time. No nephrolithiasis is seen. No masses are identified. The urinary bladder is anechoic. Brannon ateral ureteral jets are not seen. IMPRESSION: Very mild bilateral cortical renal thinning that can be seen in chronic kidney disease. N o hydronephrosis or nephrolithiasis.
[2019-09-15] MEDS: cloNIDine HCL 0.1 MG TAB PO SCH ×3 (08:46→20:08)
[2019-09-15] MEDS: CITALOPRAM HYDROBROMIDE 20 MG TAB PO SCH ×2 (08:46→08:47)
[2019-09-15] MEDS: ENOXAPARIN 40 MG/0.4 ML SYRINGE SQ SCH (08:48)
[2019-09-15] MEDS: NICOTINE 21MG/24HR PATCH TRANSDERM SCH (08:48)
[2019-09-15] MEDS: LISINOPRIL 20 MG TAB PO SCH (08:48)
[2019-09-15] MEDS: GABAPENTIN 300 MG CAP PO SCH ×3 (08:58→20:10)
[2019-09-15] MEDS: clonazePAM 0.5 MG TAB PO SCH ×2 (08:58→20:09)
[2019-09-15] MEDS ORDERED: PANTOPRAZOLE 40 MG/10 ML VIAL IV SCH (09:00)
[2019-09-15] MEDS: DAPTOmycin 500 MG in SODIUM CHLORIDE 0.9% 50 ML IVPB SCH (09:48)
[2019-09-15] MEDS: HYDROcodone/APAP 10-325MG 1 EACH TAB PO PRN ×3 (11:06→23:14)
--- NOTE | 2019-09-15 14:40 | P.GSCN ---
<Andie Trejo - Last Filed: 09/15/19 13:58> History of Present Illness Consult date: 09/15/19 History of present illness: Pt. is a pleasant 64 year old male with past medical history significant for bilateral foot ulcers which the patient has had for several months and being managed by his PCP Dr. Mustafa. He was scheduled to see truck driver teamster today, however was not feeling well and concerned with drainage and odor so came to the urgency center yesterday. Patient denies any fever, however states bilateral feet where wounds are present are very painful. The patient has a history of GERD, COPD, and diabetic neuropathy. The patient states he has had a prior history of MRSA and right first,3rd, 4th, and 5th toe amputation. X-ray of bilateral feet show left foot with large calcaneal heel wound with no evidence to suggest osteomyelitis, right foot soft tissue wound with no evidence to suggest osteomyelitis Review of Systems Review of system completed, pertinent positive and negatives documented as in the HPI. 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 History of Any Multi-Drug Resistant Organisms: MRSA Year Discovered:: 04/22/17 MDRO Source:: TOE Past Surgical History: Orthopedic Surgery Additional Past Surgical History / Comment(s): Amputation of the fourth and fifth toes on the right through the metatarsal heads, multiple I&D to nonhealing wounds on the R foot, repair of perforated ucler of stomach, EGD/colonoscopy, PICC lines in and out. Past Anesthesia/Blood Transfusion Reactions: Motion Sickness Additional Past Anesthesia/Blood Transfusion Reaction / Comm: claustrophobia Smoking Status: Current every day smoker - Past Family History Mother Family Medical History: CVA/TIA, Diabetes Mellitus, Vascular Disorder Additional Family Medical History / Comment(s): emotional problems. age 64 of cva Father Family Medical History: Hypertension Additional Family Medical History / Comment(s): age 38 from mva Medications and Allergies Home Medications Medication Instructions Recorded Confirmed Type Tamsulosin HCl [Flomax] 0.4 mg PO DAILY 03/26/17 09/14/19 History cloNIDine HCL [Catapres] 0.1 mg PO TID 10/05/17 09/14/19 History HYDROcodone/APAP 10-325MG [[place] 1 tab PO QID 11/05/17 09/14/19 History 10-325] Citalopram Hydrobromide [CeleXA] 20 mg PO DAILY 09/14/19 09/14/19 History Gabapentin 600 mg PO TID 09/14/19 09/14/19 History Lisinopril 20 mg PO DAILY 09/14/19 09/14/19 History Ranitidine HCl [Zantac] 150 mg PO BID 09/14/19 09/14/19 History clonazePAM [KlonoPIN] 0.5 mg PO BID 09/14/19 09/14/19 History traZODone HCL [Desyrel] 100 mg PO HS 09/14/19 09/14/19 History Allergies Allergy/AdvReac Type Severity Reaction Status Date / Time Penicillins Allergy Dyspnea, Verified 09/14/19 17:14 HIVES, THROAT SWELLING Surgical - Exam Vital Signs Temp Pulse Resp BP Pulse Ox 97.7 F 52 L 18 140/81 99 09/14/19 12:12 09/14/19 12:12 09/14/19 12:12 09/14/19 12:12 09/14/19 12:12 General appearance: The patient is alert, oriented, in no acute distress. HET: Head is normocephalic and atraumatic. Heart: S1 S2. Regular rate and rhythm. Lungs: No crackles or wheezes are heard. Extremities: Normal skin color and turgor. No cyanosis, rash, ulceration, clubbing, or edema. Palpable DP and PT pulses bilateral. Right foot medial aspect with pustule with purulent drainage, patient also has wound on the plantar surface of the right foot with surrounding erythema and swelling. Left heel wound with slough tissue, tunneling, and malodorous. Neurological: No focal deficits. Strength and sensation are grossly intact. Results - Labs 09/14/19 14:05 09/14/19 14:05 Abnormal Lab Results - Last 24 Hours (Table) 09/14/19 09/14/19 09/14/19 Range/Units 14:05 14:05 14:05 WBC 12.5 H (3.8-10.6) k/uL RBC 3.48 L (4.30-5.90) m/uL Hgb 10.2 L (13.0-17.5) gm/dL Hct 30.7 L (39.0-53.0) % Neutrophils # 10.5 H (1.3-7.7) k/uL Lymphocytes # 0.9 L (1.0-4.8) k/uL ESR (0-15) mm/hr Sodium 132 L (137-145) mmol/L Chloride 95 L (98-107) mmol/L Creatinine 1.64 H (0.66-1.25) mg/dL Glucose 119 H (74-99) mg/dL C-Reactive Protein 185.5 H (<10.0) mg/L Urine Protein Trace H (Negative) 09/14/19 Range/Units 14:56 WBC (3.8-10.6) k/uL RBC (4.30-5.90) m/uL Hgb (13.0-17.5) gm/dL Hct (39.0-53.0) % Neutrophils # (1.3-7.7) k/uL Lymphocytes # (1.0-4.8) k/uL ESR 114 H (0-15) mm/hr Sodium (137-145) mmol/L Chloride (98-107) mmol/L Creatinine (0.66-1.25) mg/dL Glucose (74-99) mg/dL C-Reactive Protein (<10.0) mg/L Urine Protein (Negative) Microbiology - Last 24 Hours (Table) 09/14/19 14:24 Blood Culture - Final Blood 09/14/19 16:38 Gram Stain - Preliminary Foot - Right Wound Culture - Preliminary 09/14/19 13:35 Gram Stain - Preliminary Foot - Left Wound Culture - Preliminary Diabetes panel 09/14/19 Range/Units 14:05 Sodium 132 L (137-145) mmol/L Potassium 4.4 (3.5-5.1) mmol/L Chloride 95 L (98-107) mmol/L Carbon Dioxide 23 (22-30) mmol/L BUN 19 (9-20) mg/dL Creatinine 1.64 H (0.66-1.25) mg/dL Glucose 119 H (74-99) mg/dL Calcium 8.9 (8.4-10.2) mg/dL AST 21 (17-59) U/L ALT 8 (4-49) U/L Alkaline Phosphatase 104 (38-126) U/L Total Protein 8.1 (6.3-8.2) g/dL Albumin 3.8 (3.5-5.0) g/dL Calcium panel 09/14/19 Range/Units 14:05 Calcium 8.9 (8.4-10.2) mg/dL Albumin 3.8 (3.5-5.0) g/dL Pituitary panel 09/14/19 Range/Units 14:05 Sodium 132 L (137-145) mmol/L Potassium 4.4 (3.5-5.1) mmol/L Chloride 95 L (98-107) mmol/L Carbon Dioxide 23 (22-30) mmol/L BUN 19 (9-20) mg/dL Creatinine 1.64 H (0.66-1.25) mg/dL Glucose 119 H (74-99) mg/dL Calcium 8.9 (8.4-10.2) mg/dL Adrenal panel 09/14/19 Range/Units 14:05 Sodium 132 L (137-145) mmol/L Potassium 4.4 (3.5-5.1) mmol/L Chloride 95 L (98-107) mmol/L Carbon Dioxide 23 (22-30) mmol/L BUN 19 (9-20) mg/dL Creatinine 1.64 H (0.66-1.25) mg/dL Glucose 119 H (74-99) mg/dL Calcium 8.9 (8.4-10.2) mg/dL Total Bilirubin 0.6 (0.2-1.3) mg/dL AST 21 (17-59) U/L ALT 8 (4-49) U/L Alkaline Phosphatase 104 (38-126) U/L Total Protein 8.1 (6.3-8.2) g/dL Albumin 3.8 (3.5-5.0) g/dL Assessment and Plan Assessment: Bilateral foot ulcers Cellulitis to right foot Plan: Patient with Dr. Hightower. Will order arterial ultrasound bilateral lower extremities and hemoglobin A1c. Continue recommendations per infectious disease. Continue antibiotics as ordered. Recommendations to follow. Thank you for this consultation and allowing us to participate in the plan of c are this patient during his hospital stay. The above dictated assessment and findings were discussed with Dr. Hightower. The impression and plan of care have been directed as dictated. <Olga Hightower - Last Filed: 09/15/19 17:33> Surgical - Exam Vital Signs Temp Pulse Resp BP Pulse Ox 97.7 F 52 L 18 140/81 99 09/14/19 12:12 09/14/19 12:12 09/14/19 12:12 09/14/19 12:12 09/14/19 12:12 Results - Labs 09/14/19 14:05 09/14/19 14:05 Abnormal Lab Results - Last 24 Hours (Table) 09/15/19 Range/Units 16:59 POC Glucose (mg/dL) 124 H (75-99) mg/dL Microbiology - Last 24 Hours (Table) 09/14/19 14:25 Blood Culture Gram Stain - Preliminary Blood 09/14/19 14:24 Blood Culture - Final Blood 09/14/19 16:38 Gram Stain - Preliminary Foot - Right Wound Culture - Preliminary 09/14/19 13:35 Gram Stain - Preliminary Foot - Left Wound Culture - Preliminary Assessment and Plan Plan: the patient was seen and evaluated and discussed with the nurse practitioner. Overall agree with the impression and plan. He has palpable distal pulses dorsalis pedis and posterior tibial. He also has excellent YSAMIN and waveform analysis on arterial imaging from earlier today. no vascular issue involved.he likely will need operative debridement. He might be best served by a truck driver teamster or I can proceed with the debridement tomorrow. I will discuss this with the primary physician.
[2019-09-15] MEDS: ACETAMINOPHEN TAB 325 MG TAB PO PRN (14:43)
[2019-09-15 17:01] LABS: Glucose,Whole Blood 124 mg/dL (75-99)
--- NOTE | 2019-09-15 17:05 | PN ---
PROGRESS NOTE DATE OF SERVICE: 09/15/2019 REASON FOR FOLLOWUP: 1. Right foot wound and cellulitis. 2. Left foot wound. INTERVAL HISTORY: The patient is currently afebrile. Patient is breathing comfortably. Denies having any chest pain, shortness of breath or cough. No nausea, vomiting. No abdominal pain or any worsening pain to the bilateral foot wound area. PHYSICAL EXAMINATION: Blood pressure 99/57 with a pulse of 66, temperature 97.3, he is 98% on room air. General description is a middle-aged male lying in bed in no distress. Respiratory system: Unlabored breathing, clear to auscultation anteriorly. Heart S1, S2. Regular rate and rhythm. Abdomen soft, no tenderness. LABS: Blood culture now with gram-positive cocci. Wound cultures currently pending. DIAGNOSTIC IMPRESSION AND PLAN: Patient with bilateral foot wound, more marked on the right foot with concern for a pustule formation that has been ruptured and culture has been obtained now with evidence of gram-positive bacteremia. The patient did have a PENICILLIN allergy and borderline kidney function. Patient is covered with daptomycin. Blood cultures will be repeated to document clearance of bacteremia. Local wound care to continue and monitor his clinical course closely. MMODL / IJN: [id number] /
[2019-09-15] MEDS: traZODone HCL 100 MG TAB PO SCH (20:09)
--- NOTE | 2019-09-15 23:44 | P.PN ---
Progress Note - Text Progress Note Date: 09/15/19 Chief Complaint: foot wound Interval history: This is a pleasant 64-year-old patient of Dr. Ferrer. Chronic stable medical conditions include COPD, peripheral artery disease, GERD, hypertension, bipolar disorder. Patient has been peripheral Neuropathy from alcoholism. Patient was a heavy drinking up to 2018. Patient continues to smoke. Patient's brother Sotero is a legal guardian. Patient's had foot wounds before and has been followed by Dr. vieyra in the past. With surgery for the same. Patient does develop what he describes as blisters for 1 week. In his feet have become more painful. With foul drainage. In the ER was discovered to have wounds of both the plantar aspects of both feet. Rather significant. Antibiotics were started and infectious disease was consulted. Patient has been walking on the same. Today-. Admitted with wounds on the plantar aspect of both feet. Complaining of pain. Tolerated diet. Breathing is better. Review of systems: Was done for constitutional, cardiovascular, GI, pulmonary. relevant finding as above Active Medications Acetaminophen (Tylenol Tab) 650 mg PO Q6HR PRN PRN Reason: Mild Pain or Fever > 100.5 Last Admin: 09/15/19 14:43 Dose: 650 mg Documented by: Hydrocodone Bitart/Acetaminophen ([place] 10) 1 each PO Q6H PRN PRN Reason: Pain Last Admin: 09/15/19 23:14 Dose: 1 each Documented by: Albuterol/Ipratropium (Duoneb 0.5 Mg-3 Mg/3 Ml Soln) 3 ml INHALATION RT-TID [facility] Last Admin: 09/15/19 19:38 Dose: 3 ml Documented by: Citalopram Hydrobromide (Celexa) 20 mg PO DAILY [facility] Last Admin: 09/15/19 08:47 Dose: 20 mg Documented by: Clonazepam (Klonopin) 0.5 mg PO BID [facility] Last Admin: 09/15/19 20:09 Dose: 0.5 mg Documented by: Clonidine (Catapres) 0.1 mg PO TID [facility] Last Admin: 09/15/19 20:08 Dose: Not Given Documented by: Enoxaparin Sodium (Lovenox) 40 mg SQ DAILY [facility] Last Admin: 09/15/19 08:48 Dose: 40 mg Documented by: Gabapentin (Neurontin) 600 mg PO TID [facility] Last Admin: 09/15/19 20:10 Dose: 600 mg Documented by: Daptomycin 500 mg/ Sodium (Chloride) 50 mls @ 100 mls/hr IVPB Q24H [facility]; Protocol Last Admin: 09/15/19 09:48 Dose: 100 mls/hr Documented by: Lactated Ringer's (Lactated Ringers) 1,000 mls @ 125 mls/hr IV .Q8H [facility] Last Admin: 09/15/19 20:10 Dose: 125 mls/hr Documented by: Lisinopril (Zestril) 20 mg PO DAILY [facility] Last Admin: 09/15/19 08:48 Dose: 20 mg Documented by: Naloxone HCl (Narcan) 0.2 mg IV Q2M PRN PRN Reason: Opioid Reversal Nicotine (Habitrol 21mg/24hr Patch) 1 patch TRANSDERM DAILY [facility] Last Admin: 09/15/19 08:48 Dose: 1 patch Documented by: Ondansetron HCl (Zofran) 4 mg IVP Q8HR PRN PRN Reason: Nausea And Vomiting Tramadol HCl (Ultram) 50 mg PO Q6H PRN PRN Reason: Moderate Pain Last Admin: 09/15/19 07:07 Dose: 50 mg Documented by: Trazodone HCl (Desyrel) 100 mg PO HS [facility] Last Admin: 09/15/19 20:09 Dose: 100 mg Documented by: Physical examination: VITAL SIGNS: 97.3, 66, 16, 99/57, 98% room air GENERAL: Propped up in bed, awake. EYES: Pupils equal. Conjunctiva normal. HEENT: External appearance of nose and ears normal, oral cavity grossly normal. NECK: JVD not raised; masses not palpable. HEART: First and second heart sounds are normal; no edema. LUNGS: Respiratory rate increased, decreased breath sounds prolonged expiration and some wheezing. ABDOMEN: Soft, nontender, liver spleen not palpable, no masses palpable. PSYCH: Alert and oriented x3; mood and affect normal. NEUROLOGICAL: [Cranial nerves grossly intact; no facial asymmetry, decreased sensation distally LOWER extremity: Deep Wounds on the plantar aspect of both feet, pictures have been taken to INVESTIGATIONS, reviewed in the clinical context: -White count 12.5 hemoglobin 10.2 platelets 423 potassium 4.4 creatinine 1.64 Patient's last creatinine was 0.93 documented in November 2017 ESR 114 Renal ultrasound-bilateral some cortical thinning Assessment: -Bilateral foot , deep wounds especially in the plantar aspect deep in a patient with known peripheral artery disease and peripheral neuropathy. Need to rule out osteomyelitis. Also surrounding cellulitis, slow to respond -COPD in a current smoker -Possibly acute kidney injury, could be from infection, rule out chronic component -Chronic nicotine dependence patient cigarette smoker -Peripheral artery disease with prior foot surgery -GERD -Hypertension -Bipolar disorder -Painful Peripheral neuropathy secondary to history of alcoholism Plan: Care was discussed with the patient. Discussed with Dr. Hightower from vascular. She will carry out debridement. Patient in follow-up with podiatry as an outpatient. Patient is on daptomycin. Being followed by Dr. fernandes from ID. Repeat labs in the morning.
[2019-09-16] MEDS: traMADol 50 MG TAB PO PRN (03:18)
[2019-09-16] MEDS: HYDROcodone/APAP 10-325MG 1 EACH TAB PO PRN ×3 (06:08→23:01)
[2019-09-16] MEDS: LACTATED RINGERS 1,000 ML IV SCH ×3 (06:11→22:11)
[2019-09-16] MEDS: ONDANSETRON 4 MG/2 ML VIAL IVP PRN ×2 (06:13→22:10)
[2019-09-16] MEDS: ENOXAPARIN 40 MG/0.4 ML SYRINGE SQ SCH (07:49)
[2019-09-16] MEDS: clonazePAM 0.5 MG TAB PO SCH ×2 (07:49→22:10)
[2019-09-16] MEDS: NICOTINE 21MG/24HR PATCH TRANSDERM SCH (07:49)
[2019-09-16] MEDS: LISINOPRIL 20 MG TAB PO SCH (07:50)
[2019-09-16] MEDS: cloNIDine HCL 0.1 MG TAB PO SCH ×3 (07:50→22:10)
[2019-09-16] MEDS: GABAPENTIN 300 MG CAP PO SCH ×2 (07:50→22:10)
[2019-09-16] MEDS: DAPTOmycin 500 MG in SODIUM CHLORIDE 0.9% 50 ML IVPB SCH (07:50)
[2019-09-16] MEDS: IPRATROPIUM-ALBUTEROL 3 ML NEB INHALATION SCH ×3 (08:12→20:55)
[2019-09-16 08:15] LABS: African American GFR (CKD) >90 (>60 ml/min/1.73 sqM); Anion Gap 7 mmol/L; Blood Urea Nitrogen 11 mg/dL (9-20); Calcium 8.3 mg/dL (8.4-10.2); Carbon Dioxide 26 mmol/L (22-30); Chloride 101 mmol/L (98-107); Glucose 102 mg/dL (74-99); Non-African American GFR(CKD) 78 (>60 ml/min/1.73 sqM); Potassium 4.2 mmol/L (3.5-5.1); Sodium 134 mmol/L (137-145)
[2019-09-16 08:32] LABS: Basophils % (A) 1 %; Eosinophils # (A) 0.1 k/uL (0-0.7); Eosinophils % (A) 1 %; HCT 25.7 % (39.0-53.0); Lymphocytes # (A) 0.9 k/uL (1.0-4.8); Lymphocytes % (A) 13 %; MCH 29.1 pg (25.0-35.0); MCHC 32.6 g/dL (31.0-37.0); MCV 89.4 fL (80.0-100.0); Mean Platelet Volume 6.9; Monocytes # (A) 0.3 k/uL (0-1.0); Monocytes % (A) 5 %; Neutrophils # (A) 5.5 k/uL (1.3-7.7); Neutrophils % (A) 79 %; Platelet Count 322 k/uL (150-450); RBC 2.87 m/uL (4.30-5.90); RDW 14.5 % (11.5-15.5)
[2019-09-16 08:48] LABS: HGB 8.4 gm/dL (13.0-17.5)
[2019-09-16] MEDS ORDERED: LACTATED RINGERS 1,000 ML IV ONE (10:07)
[2019-09-16 10:25] LABS: Glucose,Whole Blood 103 mg/dL (75-99)
[2019-09-16] MEDS ORDERED: KETAMINE 10 MG/ML 20 ML VIAL ONE (10:53)
[2019-09-16] MEDS ORDERED: PROPOFOL 10 MG/ML 20 ML VIAL IV ONE (10:53)
[2019-09-16] MEDS ORDERED: fentaNYL (PF) 50 MCG/ML 2 ML AMP ONE (10:53)
[2019-09-16] MEDS ORDERED: MIDAZOLAM 2 MG/2 ML VIAL ONE (10:53)
[2019-09-16] MEDS ORDERED: LIDOCAINE 1% INJ 10MG/ML (20 ML MDV) ONE (10:53)
[2019-09-16] MEDS ORDERED: LIDOCAINE 1% INJ 10MG/ML (20 ML MDV) SQ ONE (11:43)
[2019-09-16] MEDS ORDERED: SODIUM HYPOCHLORITE 0.25% 480 ML BOT MISCELLANE STA (11:51)
--- NOTE | 2019-09-16 12:43 | P.OP ---
Date of Procedure: 09/16/19 Description of Procedure: Preoperative diagnosis: [Bilateral heel and ankle wounds] Postoperative diagnosis: Same Procedure: [#1 right plantar heel sharp excisional debridement to subcutaneous tissue, 4 x 5 x 1 cm #2 right medial foot sharp debridement to muscle 5 x 3 x 1 cm #3 Left plantar heel sharp excisional debridement to bone, 11 x 4 x 5 cm #4 wound VAC application] Surgeon: Olga Hightower D.O. Anesthesia: Monitored anesthesia care EBL: [10 mL] IV fluids: [See anesthesia records] Urine output: [Not measured] Drains: [None] Complications: [None immediately apparent] Condition: [Stable to PACU] Operative indication and findings: [The patient is a 64-year-old male with peripheral neuropathy, diabetes and palpable distal pulses 2 presented with significant infected wounds to his bilateral feet. he had been seeing his primary care doctor previously who on occasion was debriding his wounds. He was supposed to see a music publicist but had increasing foul odor and drainage therefore he presented to the hospital. He is here today for excisional debridement. Risks and benefits were discussed. He seemingly understood. This is also discussed with his youngest brother who is his guardian.] Procedure in detail: [The patient was taken to the surgical suite and placed in supine position. The bilateral feet were prepped and draped in usual sterile fashion. A preprocedure timeout was performed, all parties were in agreement. Once anesthesia was adequate, the right foot wound was incised sharply with a scalpel and the plantar portion. It was carried down around the callus into the deep tissues. This is down to the subcutaneous level. A curet was used to freshen the tissue. Attention was then turned to the medial portion of the right foot. An incision was made over an area of fluctuance that initially was a tunneled wound a culture was obtained. There is an grossly debrided with curet and scissors to healthy tissue. This was debrided at the level of muscle. Hemostasis was controlled with electrocautery. They can wet-to-dry dressings were placed. Attention was then turned towards the left foot. Initially the heel wound was debridement and did track all the way down to the bone. The wound itself retracted laterally to another portion of the wound and this was a full complete tunnel. This was unroofed completely with a resultant wound as measured above. The area was then curetted, again to bone at its deepest. Hemostasis was controlled with electrocautery. A wound VAC was placed with good seal. Patient was awakened from anesthesia and transferred to PACU in stable condition having tolerated his procedure well.]
[2019-09-16 14:35] VITALS: BMI 28.4
[2019-09-16] MEDS: MORPHINE SULFATE 4 MG/ML SYRINGE IVP PRN ×3 (15:31→19:57)
[2019-09-16] MEDS: PANTOPRAZOLE 40 MG TABLET PO SCH (17:07)
[2019-09-16] MEDS: traZODone HCL 100 MG TAB PO SCH (22:10)
--- NOTE | 2019-09-16 22:41 | PN ---
PROGRESS NOTE . DATE OF SERVICE: 09/16/2019 REASON FOR FOLLOWUP: Bilateral foot wound and cellulitis. INTERVAL HISTORY: The patient is currently afebrile. The patient has been breathing comfortably. The patient was taken to the OR and the patient is status post debridement of both feet plantar wound. The left foot was noticed to be extending down to the bone as per discussion with surgeon. The patient tolerated the procedure. Denies any chest pain, shortness of breath or cough. No nausea or vomiting. No abdominal pain. No diarrhea. PHYSICAL EXAMINATION: Blood pressure 137/86, pulse of 66, temperature 98. He is 100% on room air. General description is a middle-aged male lying in bed in no distress. Respiratory system: Unlabored breathing. Clear to auscultation anteriorly. Heart S1, S2. Regular rate and rhythm. Abdomen is soft, nontender. Bilateral foot wound, currently dressed up. No obvious drainage on the dressing. LABS: Hemoglobin 8.4, white count 7.0, BUN of 11, creatinine 1.01. Wound culture with MRSA Strep. Blood culture coagulase negative Staph. DIAGNOSTIC IMPRESSION AND PLAN: Patient admitted with bilateral feet pressure ulcer on the left side extending down to the bone likely osteomyelitis. Culture has been presumptive MRSA. The patient is currently covered with daptomycin that will be continued. Did have overall improvement in his kidney function as well. He will need a PICC line for outpatient IV antibiotic therapy. Vanco may be considered. Local care to continue status post surgery and we will monitor his clinical course closely. MMODL / IJN: [id number] /
--- NOTE | 2019-09-16 23:07 | P.PN ---
Progress Note - Text Progress Note Date: 09/16/19 Chief Complaint: foot wound Interval history: This is a pleasant 64-year-old patient of Dr. Ferrer. Chronic stable medical conditions include COPD, peripheral artery disease, GERD, hypertension, bipolar disorder. Patient has been peripheral Neuropathy from alcoholism. Patient was a heavy drinking up to 2018. Patient continues to smoke. Patient's brother Sotero is a legal guardian. Patient's had foot wounds before and has been followed by Dr. vieyra in the past. With surgery for the same. Patient does develop what he describes as blisters for 1 week. In his feet have become more painful. With foul drainage. In the ER was discovered to have wounds of both the plantar aspects of both feet. Rather significant. Antibiotics were started and infectious disease was consulted. Patient has been walking on the same. Today-. No new issues. Awaiting to go down for surgery. Breathing improving. Review of systems: Was done for constitutional, cardiovascular, GI, pulmonary. relevant finding as above Active Medications Acetaminophen (Tylenol Tab) 650 mg PO Q6HR PRN PRN Reason: Mild Pain or Fever > 100.5 Last Admin: 09/15/19 14:43 Dose: 650 mg Documented by: Hydrocodone Bitart/Acetaminophen ([place] 10) 1 each PO Q6H PRN PRN Reason: Pain Last Admin: 09/16/19 23:01 Dose: 1 each Documented by: Albuterol/Ipratropium (Duoneb 0.5 Mg-3 Mg/3 Ml Soln) 3 ml INHALATION RT-TID [facility] Last Admin: 09/16/19 20:55 Dose: Not Given Documented by: Citalopram Hydrobromide (Celexa) 20 mg PO DAILY [facility] Last Admin: 09/15/19 08:47 Dose: 20 mg Documented by: Clonazepam (Klonopin) 0.5 mg PO BID [facility] Last Admin: 09/16/19 22:10 Dose: 0.5 mg Documented by: Clonidine (Catapres) 0.1 mg PO TID [facility] Last Admin: 09/16/19 22:10 Dose: 0.1 mg Documented by: Enoxaparin Sodium (Lovenox) 40 mg SQ DAILY [facility] Last Admin: 09/16/19 07:49 Dose: Not Given Documented by: Gabapentin (Neurontin) 600 mg PO TID [facility] Last Admin: 09/16/19 22:10 Dose: 600 mg Documented by: Daptomycin 500 mg/ Sodium (Chloride) 50 mls @ 100 mls/hr IVPB Q24H [facility]; Protocol Last Admin: 09/16/19 07:50 Dose: 100 mls/hr Documented by: Lactated Ringer's (Lactated Ringers) 1,000 mls @ 125 mls/hr IV .Q8H [facility] Last Admin: 09/16/19 22:11 Dose: 125 mls/hr Documented by: Lisinopril (Zestril) 20 mg PO DAILY [facility] Last Admin: 09/16/19 07:50 Dose: 20 mg Documented by: Morphine Sulfate (Morphine Sulfate (Inj)) 4 mg IVP Q2HR PRN PRN Reason: Pain Last Admin: 09/16/19 19:57 Dose: 4 mg Documented by: Naloxone HCl (Narcan) 0.2 mg IV Q2M PRN PRN Reason: Opioid Reversal Nicotine (Habitrol 21mg/24hr Patch) 1 patch TRANSDERM DAILY [facility] Last Admin: 09/16/19 07:49 Dose: 1 patch Documented by: Ondansetron HCl (Zofran) 4 mg IVP Q8HR PRN PRN Reason: Nausea And Vomiting Last Admin: 09/16/19 22:10 Dose: 4 mg Documented by: Pantoprazole Sodium (Protonix) 40 mg PO AC-BID [facility] Last Admin: 09/16/19 17:07 Dose: 40 mg Documented by: Tramadol HCl (Ultram) 50 mg PO Q6H PRN PRN Reason: Moderate Pain Last Admin: 09/16/19 03:18 Dose: 50 mg Documented by: Trazodone HCl (Desyrel) 100 mg PO HS [facility] Last Admin: 09/16/19 22:10 Dose: 100 mg Documented by: Physical examination: VITAL SIGNS: 98, 63, 16, 11 7/69, 100% room air GENERAL: Propped up in bed, awake. EYES: Pupils equal. Conjunctiva normal. HEENT: External appearance of nose and ears normal, oral cavity grossly normal. NECK: JVD not raised; masses not palpable. HEART: First and second heart sounds are normal; no edema. LUNGS: Respiratory rate increased, decreased breath sounds prolonged expiration and some wheezing. ABDOMEN: Soft, nontender, liver spleen not palpable, no masses palpable. PSYCH: Alert and oriented x3; mood and affect normal. NEUROLOGICAL: [Cranial nerves grossly intact; no facial asymmetry, decreased sensation distally LOWER extremity: Deep Wounds on the plantar aspect of both feet, pictures have been taken to INVESTIGATIONS, reviewed in the clinical context: White count 7.2 8.4 potassium 4.2 creatinine 1.04 Previous testing -White count 12.5 hemoglobin 10.2 platelets 423 potassium 4.4 creatinine 1.64 Patient's last creatinine was 0.93 documented in November 2017 ESR 114 Renal ultrasound-bilateral some cortical thinning Assessment: -Bilateral foot , deep wounds especially in the plantar aspect deep in a patient with known peripheral artery disease and peripheral neuropathy. Need to rule out osteomyelitis. Also surrounding cellulitis, slow to respond -Patient is rather good distal blood supply as per Dr. Hightower. -COPD in a current smoker -Acute kidney injury likely ATN from underlying infection, with improvement -Chronic nicotine dependence patient cigarette smoker -GERD -Hypertension -Bipolar disorder -Painful Peripheral neuropathy secondary to history of alcoholism Plan: Dr. Hightower vascular surgeon called me later this afternoon. The wounds are rather deep. More details in her notes. At this point she reported a wound VAC in place. We'll also get input from Dr. Coates from ID. Patient will need protracted antibiotics. The midline line.
[2019-09-17] MEDS: LACTATED RINGERS 1,000 ML IV SCH ×2 (00:23→21:37)
[2019-09-17] MEDS: MORPHINE SULFATE 4 MG/ML SYRINGE IVP PRN ×4 (04:57→19:21)
[2019-09-17] MEDS: NICOTINE 21MG/24HR PATCH TRANSDERM SCH (06:09)
[2019-09-17] MEDS: HYDROcodone/APAP 10-325MG 1 EACH TAB PO PRN ×2 (07:03→16:39)
[2019-09-17 07:12] LABS: African American GFR (CKD) >90 (>60 ml/min/1.73 sqM); Anion Gap 7 mmol/L; Blood Urea Nitrogen 9 mg/dL (9-20); Calcium 8.2 mg/dL (8.4-10.2); Carbon Dioxide 27 mmol/L (22-30); Chloride 101 mmol/L (98-107); Glucose 100 mg/dL (74-99); Non-African American GFR(CKD) 84 (>60 ml/min/1.73 sqM); Potassium 4.5 mmol/L (3.5-5.1); Sodium 135 mmol/L (137-145)
[2019-09-17] MEDS: clonazePAM 0.5 MG TAB PO SCH ×2 (09:10→21:35)
[2019-09-17] MEDS: LISINOPRIL 20 MG TAB PO SCH (09:10)
[2019-09-17] MEDS: CITALOPRAM HYDROBROMIDE 20 MG TAB PO SCH (09:10)
[2019-09-17] MEDS: GABAPENTIN 300 MG CAP PO SCH ×3 (09:10→21:35)
[2019-09-17] MEDS: traMADol 50 MG TAB PO PRN (09:10)
[2019-09-17] MEDS: ENOXAPARIN 40 MG/0.4 ML SYRINGE SQ SCH (09:10)
[2019-09-17] MEDS: PANTOPRAZOLE 40 MG TABLET PO SCH ×2 (09:11→16:39)
[2019-09-17] MEDS: cloNIDine HCL 0.1 MG TAB PO SCH ×3 (09:11→21:38)
[2019-09-17] MEDS: IPRATROPIUM-ALBUTEROL 3 ML NEB INHALATION SCH ×3 (09:24→19:13)
[2019-09-17] MEDS: DAPTOmycin 500 MG in SODIUM CHLORIDE 0.9% 50 ML IVPB SCH (10:27)
[2019-09-17] MEDS: ONDANSETRON 4 MG/2 ML VIAL IVP PRN (14:14)
--- NOTE | 2019-09-17 15:22 | P.PN ---
Subjective Progress Note Date: 09/17/19 Patient seen and examined. No issues overnight. Pain is relatively well controlled Objective - Vital Signs Vital signs: Vital Signs Temp 97.8 F 09/17/19 07:00 Pulse 70 09/17/19 07:00 Resp 16 09/17/19 07:00 BP 130/72 09/17/19 07:00 Pulse Ox 95 09/17/19 07:00 Intake & Output 09/16/19 09/17/19 09/17/19 18:59 06:59 18:59 Intake Total 370 1480 Output Total 10 900 400 Balance 360 -900 1080 Weight 100.5 kg Intake: IV 370 Intake, IV Titration 1000 Amount Lactated Ringers 1,000 ml 1000 @ 125 mls/hr IV .Q8H [facility] Rx#:[id number] Oral 480 Output: Urine 900 400 Estimated Blood Loss 10 Other: Voiding Method Urinal # Voids 3 1 - Exam Patient is in no acute distress resting comfortably HEENT is normal cephalic atraumatic Heart is regular in rate and rhythm Lungs are clear bilaterally Abdomen soft, nontender nondistended Bilateral lower extremities are warm and dry. He has palpable DP and PT pulses bilaterally. The right foot dressing is in place clean and dry. The left foot wound VAC is in place with good suction. - Labs CBC & Chem 7: 09/16/19 07:06 09/17/19 06:04 Labs: Abnormal Lab Results - Last 24 Hours (Table) 09/17/19 Range/Units 06:04 Sodium 135 L (137-145) mmol/L Glucose 100 H (74-99) mg/dL Calcium 8.2 L (8.4-10.2) mg/dL Microbiology - Last 24 Hours (Table) 09/16/19 12:23 Gram Stain - Preliminary Foot - Left Wound Culture - Preliminary Presumptive MRSA 09/14/19 13:35 Gram Stain - Final Foot - Left Wound Culture - Final Methicillin resist S. aureus 09/16/19 12:22 Gram Stain - Preliminary Foot - Left Wound Culture - Preliminary 09/14/19 16:38 Gram Stain - Preliminary Foot - Right Wound Culture - Preliminary Presumptive MRSA Alpha Hemolytic Streptococcus 09/16/19 12:23 Anaerobic Culture - Preliminary Foot - Left 09/16/19 12:22 Anaerobic Culture - Preliminary Foot - Left Assessment and Plan Assessment: #1 bilateral lower extremity wounds status post debridement #2 peripheral neuropathy #3 COPD #4 acute kidney injury Plan: Patient was discussed with infectious disease and his primary physician. He needs to remain offloading of his bilateral lower extremities. He likely would be best suited by rehab services. HEENT is to continue the wound VAC on the left. We will have wound care see him for daily dressing changes. Right lower extremity Dakin's at this point, left foot wound VAC. Further ongoing in structions and orders per wound care
--- NOTE | 2019-09-17 18:47 | PN ---
PROGRESS NOTE DATE OF SERVICE: 09/17/2019 REASON FOR FOLLOWUP: Bilateral foot wounds with osteomyelitis, left foot, acute MRSA. INTERVAL HISTORY: The patient is currently afebrile. The patient has been breathing comfortably. The patient denies having any chest pain, shortness of breath or cough. No nausea. No vomiting. No abdominal pain or any worsening pain to the foot wound areas. PHYSICAL EXAMINATION: Blood pressure 126/72 with a pulse of 72, temperature of 98. He is 96% on room air. General description is a middle-aged male lying in bed in no distress. RESPIRATORY SYSTEM: Unlabored breathing. Clear to auscultation anteriorly. HEART: S1, S2. Regular rate and rhythm. ABDOMEN: Soft. No tenderness. Bilateral foot wounds are currently dressed up. No obvious drainage on the dressings. LABS: Hemoglobin 8.4, white count 7.0, BUN of 9, creatinine 0.96. DIAGNOSTIC IMPRESSION AND PLAN: 1. Patient with a left foot pressure ulcer, stage IV, with evidence of osteomyelitis, status post debridement. Culture with MRSA. Covered with daptomycin. 2. Patient with a right foot wound stage III pressure ulcer. The patient is currently covered with daptomycin, as the patient did have borderline kidney function initially. Subsequent kidney function has improved. Discharge antibiotic will be either the daptomycin or vancomycin, depending on insurance coverage. PICC line will be placed. Local care to continue as ordered. Continue with supportive care. MMODL / IJN: [id number] /
[2019-09-17] MEDS: traZODone HCL 100 MG TAB PO SCH (21:36)
--- NOTE | 2019-09-17 22:57 | P.PN ---
Progress Note - Text Progress Note Date: 09/17/19 Chief Complaint: foot wound Interval history: This is a pleasant 64-year-old patient of Dr. Ferrer. Chronic stable medical conditions include COPD, peripheral artery disease, GERD, hypertension, bipolar disorder. Patient has been peripheral Neuropathy from alcoholism. Patient was a heavy drinking up to 2018. Patient continues to smoke. Patient's brother Sotero is a legal guardian. Patient's had foot wounds before and has been followed by Dr. vieyra in the past. With surgery for the same. Patient does develop what he describes as blisters for 1 week. In his feet have become more painful. With foul drainage. In the ER was discovered to have wounds of both the plantar aspects of both feet. Rather significant. Antibiotics were started and infectious disease was consulted. Patient has been walking on the same.status post debridement of the foot wounds. Diagnosed with acute osteomyelitis.wound VAC placed on the left foot. Today-. pain control. Tolerated diet. Breathing is better. Review of systems: Was done for constitutional, cardiovascular, GI, pulmonary. relevant finding as above Active Medications Acetaminophen (Tylenol Tab) 650 mg PO Q6HR PRN PRN Reason: Mild Pain or Fever > 100.5 Last Admin: 09/15/19 14:43 Dose: 650 mg Documented by: Hydrocodone Bitart/Acetaminophen ([place] 10) 1 each PO Q6H PRN PRN Reason: Pain Last Admin: 09/17/19 16:39 Dose: 1 each Documented by: Albuterol/Ipratropium (Duoneb 0.5 Mg-3 Mg/3 Ml Soln) 3 ml INHALATION RT-TID [facility] Last Admin: 09/17/19 19:13 Dose: Not Given Documented by: Citalopram Hydrobromide (Celexa) 20 mg PO DAILY [facility] Last Admin: 09/17/19 09:10 Dose: 20 mg Documented by: Clonazepam (Klonopin) 0.5 mg PO BID [facility] Last Admin: 09/17/19 21:35 Dose: 0.5 mg Documented by: Clonidine (Catapres) 0.1 mg PO TID [facility] Last Admin: 09/17/19 21:38 Dose: Not Given Documented by: Enoxaparin Sodium (Lovenox) 40 mg SQ DAILY [facility] Last Admin: 09/17/19 09:10 Dose: 40 mg Documented by: Gabapentin (Neurontin) 600 mg PO TID [facility] Last Admin: 09/17/19 21:35 Dose: 600 mg Documented by: Daptomycin 500 mg/ Sodium (Chloride) 50 mls @ 100 mls/hr IVPB Q24H [facility]; Protocol Last Admin: 09/17/19 10:27 Dose: 100 mls/hr Documented by: Lactated Ringer's (Lactated Ringers) 1,000 mls @ 50 mls/hr IV .Q20H [facility] Last Admin: 09/17/19 21:37 Dose: 50 mls/hr Documented by: Lisinopril (Zestril) 20 mg PO DAILY [facility] Last Admin: 09/17/19 09:10 Dose: 20 mg Documented by: Morphine Sulfate (Morphine Sulfate (Inj)) 4 mg IVP Q2HR PRN PRN Reason: Pain Last Admin: 09/17/19 19:21 Dose: 4 mg Documented by: Naloxone HCl (Narcan) 0.2 mg IV Q2M PRN PRN Reason: Opioid Reversal Nicotine (Habitrol 21mg/24hr Patch) 1 patch TRANSDERM DAILY [facility] Last Admin: 09/17/19 06:09 Dose: 1 patch Documented by: Ondansetron HCl (Zofran) 4 mg IVP Q8HR PRN PRN Reason: Nausea And Vomiting Last Admin: 09/17/19 14:14 Dose: 4 mg Documented by: Pantoprazole Sodium (Protonix) 40 mg PO AC-BID [facility] Last Admin: 09/17/19 16:39 Dose: 40 mg Documented by: Tramadol HCl (Ultram) 50 mg PO Q6H PRN PRN Reason: Moderate Pain Last Admin: 09/17/19 09:10 Dose: 50 mg Documented by: Trazodone HCl (Desyrel) 100 mg PO HS [facility] Last Admin: 09/17/19 21:36 Dose: 100 mg Documented by: Physical examination: VITAL SIGNS: 97.8, 70, 16, 130/72, 95% room air GENERAL: Propped up in bed, comfortable EYES: Pupils equal. Conjunctiva normal. HEENT: External appearance of nose and ears normal, oral cavity grossly normal. NECK: JVD not raised; masses not palpable. HEART: First and second heart sounds are normal; no edema. LUNGS: Respiratory rate increased, decreased breath sounds prolonged expiration and some wheezing. ABDOMEN: Soft, nontender, liver spleen not palpable, no masses palpable. PSYCH: Alert and oriented x3; mood and affect normal. NEUROLOGICAL: [Cranial nerves grossly intact; no facial asymmetry, decreased sensation distally LOWER extremity: Deep Wounds on the plantar aspect of both feet, wound VAC to the left foot INVESTIGATIONS, reviewed in the clinical context: creatinine 0.94 potassium 4.5 Previous testing -White count 12.5 hemoglobin 10.2 platelets 423 potassium 4.4 creatinine 1.64 Patient's last creatinine was 0.93 documented in November 2017 ESR 114 Renal ultrasound-bilateral some cortical thinning Assessment: -Bilateral foot , deep wounds especially in the plantar aspect deep in a patient with known peripheral artery disease and peripheral neuropathy. acute osteomyelitisleft foot. Also surrounding cellulitis, status post debridement. Wound VAC to left foot. Cultures positive for MRSA. Right foot wound stage I II pressure ulcer. -Patient is rather good distal blood supply as per Dr. Hightower. -COPD in a current smoker -Acute kidney injury likely ATN from underlying infection, with improvement -Chronic nicotine dependence patient cigarette smoker -GERD -Hypertension -Bipolar disorder -Painful Peripheral neuropathy secondary to history of alcoholism Plan: patient to go to rehab so he can offload his feet. Antibiotics to continue. Wound VAC to continue.
[2019-09-18] MEDS: LACTATED RINGERS 1,000 ML IV SCH ×2 (00:23→20:02)
[2019-09-18] MEDS: HYDROcodone/APAP 10-325MG 1 EACH TAB PO PRN ×4 (01:22→23:11)
[2019-09-18] MEDS: MORPHINE SULFATE 4 MG/ML SYRINGE IVP PRN ×5 (06:01→20:59)
[2019-09-18 07:19] LABS: Calcium 8.6 mg/dL (8.4-10.2); Potassium 4.8 mmol/L (3.5-5.1)
[2019-09-18] MEDS: IPRATROPIUM-ALBUTEROL 3 ML NEB INHALATION SCH ×3 (08:25→20:01)
[2019-09-18] MEDS: CITALOPRAM HYDROBROMIDE 20 MG TAB PO SCH (08:39)
[2019-09-18] MEDS: PANTOPRAZOLE 40 MG TABLET PO SCH ×2 (08:39→16:32)
[2019-09-18] MEDS: LISINOPRIL 20 MG TAB PO SCH (08:39)
[2019-09-18] MEDS: cloNIDine HCL 0.1 MG TAB PO SCH ×3 (08:39→20:02)
[2019-09-18] MEDS: clonazePAM 0.5 MG TAB PO SCH ×2 (08:39→20:02)
[2019-09-18] MEDS: ENOXAPARIN 40 MG/0.4 ML SYRINGE SQ SCH (08:39)
[2019-09-18] MEDS: GABAPENTIN 300 MG CAP PO SCH ×3 (08:39→20:02)
[2019-09-18] MEDS: DAPTOmycin 500 MG in SODIUM CHLORIDE 0.9% 50 ML IVPB SCH (08:40)
[2019-09-18] MEDS: NICOTINE 21MG/24HR PATCH TRANSDERM SCH (08:40)
[2019-09-18] MEDS ORDERED: VANCOMYCIN IV PER PHARMACY 1 EACH MISC MISCELLANE PRN (12:28)
[2019-09-18] MEDS ORDERED: VANCOMYCIN 1,750 MG in SODIUM CHLORIDE 0.9% 500 ML 500 ML IVPB ONE (13:00)
--- NOTE | 2019-09-18 14:11 | P.PN ---
Subjective Progress Note Date: 09/18/19 Patient seen and examined. No issues overnight. Objective - Vital Signs Vital signs: Vital Signs Temp 98 F 09/18/19 07:52 Pulse 67 09/18/19 07:52 Resp 16 09/18/19 07:52 BP 116/71 09/18/19 07:52 Pulse Ox 95 09/18/19 07:52 Intake & Output 09/17/19 09/18/19 09/18/19 18:59 06:59 18:59 Intake Total 1800 690 630 Output Total 400 900 Balance 1400 -210 630 Intake: IV 630 DAPTOmycin 500 mg In 50 Sodium Chloride 0.9% 50 ml @ 100 mls/hr IVPB Q24H [facility] Rx#:[id number] Lactated Ringers 1,000 ml 80 @ 10 mls/hr IV .Q24H [facility] Rx#:[id number] Vancomycin 1,750 mg In 500 Sodium Chloride 0.9% 500 ml 500 ml @ 167 mls/hr IVPB ONCE ONE Rx#: [id number] Intake, IV Titration 1000 270 Amount Lactated Ringers 1,000 ml 70 @ 10 mls/hr IV .Q24H [facility] Rx#:[id number] Lactated Ringers 1,000 ml 1000 @ 125 mls/hr IV .Q8H [facility] Rx#:[id number] Lactated Ringers 1,000 ml 200 @ 50 mls/hr IV .Q20H [facility] Rx#:[id number] Oral 800 420 Output: Urine 400 900 Other: Voiding Method Urinal - Exam Patient is in no acute distress resting comfortably HEENT is normal cephalic atraumatic Heart is regular in rate and rhythm Lungs are clear bilaterally Abdomen soft, nontender nondistended Bilateral lower extremities are warm and dry. He has palpable DP and PT pulses bilaterally. Right foot dressing is replaced. The left foot wound VAC is in place with good suction. - Labs CBC & Chem 7: 09/16/19 07:06 09/18/19 06:14 Labs: Abnormal Lab Results - Last 24 Hours (Table) 09/18/19 Range/Units 06:14 Sodium 136 L (137-145) mmol/L Glucose 101 H (74-99) mg/dL Microbiology - Last 24 Hours (Table) 09/16/19 12:23 Gram Stain - Preliminary Foot - Left Wound Culture - Preliminary Presumptive MRSA 09/14/19 14:25 Blood Culture Gram Stain - Final Blood Blood Culture - Final Staph hominis sub sp. hominis 09/14/19 16:38 Gram Stain - Final Foot - Right Wound Culture - Final Methicillin resist S. aureus Alpha Hemolytic Streptococcus 09/14/19 13:35 Gram Stain - Final Foot - Left Wound Culture - Final Methicillin resist S. aureus Assessment and Plan Assessment: #1 bilateral lower extremity wounds status post debridement #2 peripheral neuropathy #3 COPD #4 acute kidney injury Plan: Ongoing instructions per wound care, no changes at this time. Continue offloading. Right lower extremity daily dressing changes.
[2019-09-18] MEDS: traZODone HCL 100 MG TAB PO SCH (20:02)
--- NOTE | 2019-09-18 20:34 | PN ---
PROGRESS NOTE DATE OF SERVICE: 09/18/2019 REASON FOR FOLLOWUP: Left heel osteomyelitis and MRSA and right foot plantar wound. INTERVAL HISTORY: The patient is currently afebrile. Patient is breathing comfortably. The patient denies having any chest pain, shortness of breath or cough. No nausea, vomiting. No abdominal pain. No diarrhea. PHYSICAL EXAMINATION: Blood pressure is 119/73 with a pulse of 40, temperature 97.8. He is 93% on room air. General description is a middle-aged male lying in bed in no distress. Respiratory system: Unlabored breathing. Clear to auscultation anteriorly. Heart S1, S2. Regular rate and rhythm. Abdomen soft, no tenderness. Left foot did have wound VAC scheduled to be changed tomorrow. Right foot wound base currently looks clean with no significant slough tissue surrounding, has improved. No drainage. LABS: BUN of 11, creatinine 1.02. Wound culture with MRSA and . DIAGNOSTIC IMPRESSION AND PLAN: Patient with left foot wound with underlying osteomyelitis. Culture with MRSA, now with also evidence . We will add Rocephin 2 g daily and continue vancomycin. He will need a PICC line for continuation of IV antibiotic in the outpatient setting and continue supportive care. Local care to continue, local care to continue to the left heel with a wound VAC that will be changed tomorrow, right wound care with dry Aquacel Silver dressing to keep the area off the pressure. Continue supportive care. MMODL / IJN: [id number] /
--- NOTE | 2019-09-18 22:20 | P.PN ---
Progress Note - Text Progress Note Date: 09/18/19 Chief Complaint: foot wound Interval history: This is a pleasant 64-year-old patient of Dr. Ferrer. Chronic stable medical conditions include COPD, peripheral artery disease, GERD, hypertension, bipolar disorder. Patient has been peripheral Neuropathy from alcoholism. Patient was a heavy drinking up to 2018. Patient continues to smoke. Patient's brother Sotero is a legal guardian. Patient's had foot wounds before and has been followed by Dr. vieyra in the past. With surgery for the same. Patient does develop what he describes as blisters for 1 week. In his feet have become more painful. With foul drainage. In the ER was discovered to have wounds of both the plantar aspects of both feet. Rather significant. Antibiotics were started and infectious disease was consulted. Patient has been walking on the same.status post debridement of the foot wounds. Diagnosed with acute osteomyelitis.wound VAC placed on the left foot. Today-. Doing well. Pain is controlled. Starting a diet. Breathing is stable.. Review of systems: Was done for constitutional, cardiovascular, GI, pulmonary. relevant finding as above Active Medications Acetaminophen (Tylenol Tab) 650 mg PO Q6HR PRN PRN Reason: Mild Pain or Fever > 100.5 Last Admin: 09/15/19 14:43 Dose: 650 mg Documented by: Hydrocodone Bitart/Acetaminophen ([place] 10) 1 each PO Q6H PRN PRN Reason: Pain Last Admin: 09/18/19 15:31 Dose: 1 each Documented by: Albuterol/Ipratropium (Duoneb 0.5 Mg-3 Mg/3 Ml Soln) 3 ml INHALATION RT-TID [facility] [place] Last Admin: 09/18/19 20:01 Dose: Not Given Documented by: Citalopram Hydrobromide (Celexa) 20 mg PO DAILY [facility] [place] Last Admin: 09/18/19 08:39 Dose: 20 mg Documented by: Clonazepam (Klonopin) 0.5 mg PO BID [facility] [place] Last Admin: 09/18/19 20:02 Dose: 0.5 mg Documented by: Clonidine (Catapres) 0.1 mg PO TID [facility] [place] Last Admin: 09/18/19 20:02 Dose: 0.1 mg Documented by: Enoxaparin Sodium (Lovenox) 40 mg SQ DAILY [facility] Last Admin: 09/18/19 08:39 Dose: 40 mg Documented by: Gabapentin (Neurontin) 600 mg PO TID [facility] [place] Last Admin: 09/18/19 20:02 Dose: 600 mg Documented by: Lactated Ringer's (Lactated Ringers) 1,000 mls @ 10 mls/hr IV .Q24H [facility] [place] Last Admin: 09/18/19 20:02 Dose: 10 mls/hr Documented by: Vancomycin HCl 1,750 mg/ (Sodium Chloride) 500 mls @ 167 mls/hr IVPB Q12H [facility] [place] Ceftriaxone Sodium 2 gm/ (Sodium Chloride) 50 mls @ 100 mls/hr IVPB Q24HR [facility] [place] Lisinopril (Zestril) 20 mg PO DAILY [facility] [place] Last Admin: 09/18/19 08:39 Dose: 20 mg Documented by: Miscellaneous Information (Pharmacy To Dose Iv Vancomycin) 1 each MISCELLANE DIRECTED PRN; Protocol PRN Reason: Per Protocol Morphine Sulfate (Morphine Sulfate (Inj)) 4 mg IVP Q2HR PRN PRN Reason: Pain Last Admin: 09/18/19 20:59 Dose: 4 mg Documented by: Naloxone HCl (Narcan) 0.2 mg IV Q2M PRN PRN Reason: Opioid Reversal Nicotine (Habitrol 21mg/24hr Patch) 1 patch TRANSDERM DAILY [facility] Last Admin: 09/18/19 08:40 Dose: 1 patch Documented by: Ondansetron HCl (Zofran) 4 mg IVP Q8HR PRN PRN Reason: Nausea And Vomiting Last Admin: 09/17/19 14:14 Dose: 4 mg Documented by: Pantoprazole Sodium (Protonix) 40 mg PO AC-BID [facility] [place] Last Admin: 09/18/19 16:32 Dose: 40 mg Documented by: Tramadol HCl (Ultram) 50 mg PO Q6H PRN PRN Reason: Moderate Pain Last Admin: 09/17/19 09:10 Dose: 50 mg Documented by: Trazodone HCl (Desyrel) 100 mg PO HS [facility] [place] Last Admin: 09/18/19 20:02 Dose: 100 mg Documented by: Physical examination: VITAL SIGNS: 98, 67, 16, 11 6/71, 95% room air GENERAL: Laying in bed, comfortable EYES: Pupils equal. Conjunctiva normal. HEENT: External appearance of nose and ears normal, oral cavity grossly normal. NECK: JVD not raised; masses not palpable. HEART: First and second heart sounds are normal; no edema. LUNGS: Respiratory rate increased, decreased breath sounds prolonged expiration and some wheezing. ABDOMEN: Soft, nontender, liver spleen not palpable, no masses palpable. PSYCH: Alert and oriented x3; mood and affect normal. NEUROLOGICAL: [Cranial nerves grossly intact; no facial asymmetry, decreased sensation distally LOWER extremity: Deep Wounds on the plantar aspect of both feet, wound VAC to the left foot INVESTIGATIONS, reviewed in the clinical context: Potassium 4.8 creatinine 1.12 Previous testing -White count 12.5 hemoglobin 10.2 platelets 423 potassium 4.4 creatinine 1.64 Patient's last creatinine was 0.93 documented in November 2017 ESR 114 Renal ultrasound-bilateral some cortical thinning Assessment: -Bilateral foot , deep wounds especially in the plantar aspect deep in a patient with known peripheral artery disease and peripheral neuropathy. acute oste omyelitisleft foot. Also surrounding cellulitis, status post debridement. Wound VAC to left foot. Cultures positive for MRSA. Right foot wound stage III pressure ulcer. -Patient is rather good distal blood supply as per Dr. Hightower. -COPD in a current smoker -Acute kidney injury likely ATN from underlying infection, with improvement -Possible chronic kidney disease stage II from nephrosclerosis, based on ultrasound findings -Chronic nicotine dependence patient cigarette smoker -GERD -Hypertension -Bipolar disorder -Painful Peripheral neuropathy secondary to history of alcoholism Plan: Patient on IV ceftriaxone, vancomycin. Wound VAC in place. Waiting to go to [facility].
[2019-09-18] MEDS: VANCOMYCIN 1,750 MG in SODIUM CHLORIDE 0.9% 500 ML 500 ML IVPB SCH (23:12)
[2019-09-19] MEDS: MORPHINE SULFATE 4 MG/ML SYRINGE IVP PRN ×5 (05:13→22:07)
[2019-09-19] MEDS: HYDROcodone/APAP 10-325MG 1 EACH TAB PO PRN ×3 (07:09→17:59)
[2019-09-19] MEDS: ONDANSETRON 4 MG/2 ML VIAL IVP PRN (07:13)
[2019-09-19] MEDS: PANTOPRAZOLE 40 MG TABLET PO SCH ×2 (07:13→17:11)
[2019-09-19] MEDS: ENOXAPARIN 40 MG/0.4 ML SYRINGE SQ SCH (07:56)
[2019-09-19] MEDS: IPRATROPIUM-ALBUTEROL 3 ML NEB INHALATION SCH ×3 (08:23→19:48)
[2019-09-19] MEDS: LISINOPRIL 20 MG TAB PO SCH (09:03)
[2019-09-19] MEDS: CITALOPRAM HYDROBROMIDE 20 MG TAB PO SCH (09:04)
[2019-09-19] MEDS: NICOTINE 21MG/24HR PATCH TRANSDERM SCH (09:04)
[2019-09-19] MEDS: cloNIDine HCL 0.1 MG TAB PO SCH ×3 (09:04→22:25)
[2019-09-19] MEDS: GABAPENTIN 300 MG CAP PO SCH ×3 (09:04→22:07)
[2019-09-19] MEDS: clonazePAM 0.5 MG TAB PO SCH ×2 (09:04→22:07)
[2019-09-19] MEDS: VANCOMYCIN 1,750 MG in SODIUM CHLORIDE 0.9% 500 ML 500 ML IVPB SCH (12:24)
--- NOTE | 2019-09-19 15:43 | P.PN ---
Subjective Progress Note Date: 09/19/19 Patient seen and evaluated lying in bed. Wound VAC to left heel is intact with good suction with approximately 150 mL of serosanguineous drainage in the wound VAC. Right lower extremity with dressing clean dry and intact. The patient denies any changes through the night, remains afebrile. Infectious disease managing wound and antibiotics. Objective - Vital Signs Vital signs: Vital Signs Temp 98.8 F 09/19/19 07:00 Pulse 65 09/19/19 07:00 Resp 16 09/19/19 07:00 BP 166/70 09/19/19 07:00 Pulse Ox 98 09/19/19 07:00 Intake & Output 09/18/19 09/19/19 09/19/19 18:59 06:59 18:59 Intake Total 630 360 Output Total 1000 Balance 630 -640 Intake: IV 630 DAPTOmycin 500 mg In 50 Sodium Chloride 0.9% 50 ml @ 100 mls/hr IVPB Q24H [facility] Rx#:[id number] Lactated Ringers 1,000 ml 80 @ 10 mls/hr IV .Q24H [facility] Rx#:[id number] Vancomycin 1,750 mg In 500 Sodium Chloride 0.9% 500 ml 500 ml @ 167 mls/hr IVPB ONCE ONE Rx#: [id number] Oral 360 Output: Urine 1000 Other: Voiding Method Urinal # Voids 1 - Exam General appearance: The patient is alert, oriented, in no acute distress. HET: Head is normocephalic and atraumatic. Heart: S1 S2. Regular rate and rhythm. Lungs: No crackles or wheezes are heard. Extremities: Lower extremities are warm and dry, with palpable DP and PT pulses bilaterally. Right foot dressing clean dry and intact. Left foot with wound VAC over left heel with adequate suction. - Labs CBC & Chem 7: 09/16/19 07:06 09/18/19 06:14 Labs: Microbiology - Last 24 Hours (Table) 09/16/19 12:22 Anaerobic Culture - Final Foot - Left Anaerobic Gm Negative Bacilli Anaerobic Gm Negative Bacilli#2 Anaerobic Gm Negative Bacilli#3 09/16/19 12:23 Anaerobic Culture - Final Foot - Left Anaerobic Gm Negative Bacilli Anaerobic Gm Negative Bacilli#2 Anaerobic Gm Negative Bacilli#3 09/16/19 12:23 Gram Stain - Final Foot - Left Wound Culture - Final Methicillin resist S. aureus Pasteurella multocida 09/16/19 12:22 Gram Stain - Final Foot - Left Wound Culture - Final Pasteurella multocida Assessment and Plan Assessment: Bilateral foot ulcers status post debridement Cellulitis to right foot Peripheral neuropathy COPD Acute kidney injury Plan: Ongoing dressing changes and wound vac per recommendations from wound care management. Continue offloading. Continue antibiotics per infectious disease. The above dictated assessment and findings were discussed with Dr. Hightower. The impression and plan of care have been directed as dictated.
[2019-09-19] MEDS ORDERED: LIDOCAINE 1% INJ 10MG/ML (20 ML MDV) SQ ONE (17:29)
--- NOTE | 2019-09-19 19:49 | IR ---
EXAMINATION TYPE: IR cvc insert >=5 years DATE OF EXAM: 09/19/2019 COMPARISON: NONE CLINICAL HISTORY: Infection Needs long-term intravenous access for antibiotics. PROCEDURE: After informed consent, the skin overlying the right basilic vein was localized with ultrasound and n oted to be compressible and patent. An ultrasound image was obtained and submitted on the patient's chart. The overlying skin was prepped and draped and Lidocaine was used for local anesthesia. A ski n victorino was made with a scalpel. Access was gained to the vein under ultrasound guidance with a 21 ga uge needle and a 0.018 inch wire was advanced. Access site was dilated with Peel-Away sheath and cat heter tailored to the appropriate length and advanced such that the distal tip is at the cavoatrial j unction. Spot image was obtained verifying placement. Catheter was fixed to the skin and a sterile dressing was placed following hemostasis. Catheter was aspirated and flushed with saline. Patient w as discharged in stable condition without complication. Maximal barrier technique is utilized. Ultra sound image is documented on the chart. Ultrasound used with sterile technique. Fluoro time and fluoroscopic images submitted to document procedure: 77 intraoperative C-arm images, 0.4 minutes fluoroscopy time IMPRESSION: STATUS POST ULTRASOUND AND FLUOROSCOPIC GUIDED PICC LINE PLACEMENT, READY FOR USE. THIS PROCEDURE WAS PERFORMED BY THE UNDERSIGNED.
[2019-09-19] MEDS: metroNIDAZOLE 500 MG TAB PO SCH (22:07)
[2019-09-19] MEDS: traZODone HCL 100 MG TAB PO SCH (22:07)
--- NOTE | 2019-09-19 22:16 | PN ---
PROGRESS NOTE DATE OF SERVICE: 09/19/2019 REASON FOR FOLLOWUP: Left heel osteomyelitis, acute, with MRSA, pasteurella and anaerobes. INTERVAL HISTORY: The patient is currently afebrile. The patient is breathing comfortably. The patient denies having any chest pain, shortness of breath or cough. No nausea, no vomiting, no abdominal pain. No diarrhea or any worsening pain to the wound area. PHYSICAL EXAMINATION: Blood pressure 127/75 with a pulse of 66, temperature 98.9. He is 99% on room air. General description is a middle-aged male lying in bed in no distress. RESPIRATORY SYSTEM: Unlabored breathing. Clear to auscultation anteriorly. HEART: S1, S2. Regular rate and rhythm. ABDOMEN: Soft. No tenderness. The wounds are currently dressed up. No obvious drainage on the dressing. LABS: BUN of 11, creatinine 1.02. Wound culture now showing anaerobic Gram-negative in addition to MRSA and pasteurella. DIAGNOSTIC IMPRESSION AND PLAN: 1. Patient with left heel osteomyelitis, acute, status post debridement. The patient did get a PICC line. Currently covered with vancomycin and Rocephin. Oral Flagyl will be added. 2. Right foot stage II pressure ulcer. Local care to continue with Aquacel Silver dressing. Await antibiotic arrangements and placement. Continue with supportive care. MMODL / IJN: [id number] /
[2019-09-19] MEDS: LACTATED RINGERS 1,000 ML IV SCH (23:03)
--- NOTE | 2019-09-20 00:05 | P.PN ---
Progress Note - Text Progress Note Date: 09/19/19 Chief Complaint: foot wound Interval history: This is a pleasant 64-year-old patient of Dr. Ferrer. Chronic stable medical conditions include COPD, peripheral artery disease, GERD, hypertension, bipolar disorder. Patient has been peripheral Neuropathy from alcoholism. Patient was a heavy drinking up to 2018. Patient continues to smoke. Patient's brother Sotero is a legal guardian. Patient's had foot wounds before and has been followed by Dr. vieyra in the past. With surgery for the same. Patient does develop what he describes as blisters for 1 week. In his feet have become more painful. With foul drainage. In the ER was discovered to have wounds of both the plantar aspects of both feet. Rather significant. Antibiotics were started and infectious disease was consulted. Patient has been walking on the same.status post debridement of the foot wounds. Diagnosed with acute osteomyelitis.wound VAC placed on the left foot. Today-. no new issues. Getting antibiotics. Pending placement. Starting a diet. Pain control. Review of systems: Was done for constitutional, cardiovascular, GI, pulmonary. relevant finding as above Active Medications Acetaminophen (Tylenol Tab) 650 mg PO Q6HR PRN PRN Reason: Mild Pain or Fever > 100.5 Last Admin: 09/15/19 14:43 Dose: 650 mg Documented by: Hydrocodone Bitart/Acetaminophen ([place] 10) 1 each PO Q6H PRN PRN Reason: Pain Last Admin: 09/19/19 17:59 Dose: 1 each Documented by: Albuterol/Ipratropium (Duoneb 0.5 Mg-3 Mg/3 Ml Soln) 3 ml INHALATION RT-TID [facility] Last Admin: 09/19/19 19:48 Dose: Not Given Documented by: Citalopram Hydrobromide (Celexa) 20 mg PO DAILY [facility] Last Admin: 09/19/19 09:04 Dose: 20 mg Documented by: Clonazepam (Klonopin) 0.5 mg PO BID [facility] Last Admin: 09/19/19 22:07 Dose: 0.5 mg Documented by: Clonidine (Catapres) 0.1 mg PO TID [facility] Last Admin: 09/19/19 22:25 Dose: 0.1 mg Documented by: Enoxaparin Sodium (Lovenox) 40 mg SQ DAILY [facility] Last Admin: 09/19/19 07:56 Dose: Not Given Documented by: Gabapentin (Neurontin) 600 mg PO TID [facility] Last Admin: 09/19/19 22:07 Dose: 600 mg Documented by: Lactated Ringer's (Lactated Ringers) 1,000 mls @ 10 mls/hr IV .Q24H [facility] Last Admin: 09/19/19 23:03 Dose: Not Given Documented by: Vancomycin HCl 1,750 mg/ (Sodium Chloride) 500 mls @ 167 mls/hr IVPB Q12H [facility] Last Admin: 09/19/19 12:24 Dose: 167 mls/hr Documented by: Ceftriaxone Sodium 2 gm/ (Sodium Chloride) 50 mls @ 100 mls/hr IVPB Q24HR [facility] Last Admin: 09/19/19 09:04 Dose: 100 mls/hr Documented by: Lisinopril (Zestril) 20 mg PO DAILY [facility] Last Admin: 09/19/19 09:03 Dose: 20 mg Documented by: Metronidazole (Flagyl) 500 mg PO TID [facility] Last Admin: 09/19/19 22:07 Dose: 500 mg Documented by: Morphine Sulfate (Morphine Sulfate (Inj)) 4 mg IVP Q2HR PRN PRN Reason: Pain Last Admin: 09/19/19 22:07 Dose: 4 mg Documented by: Naloxone HCl (Narcan) 0.2 mg IV Q2M PRN PRN Reason: Opioid Reversal Nicotine (Habitrol 21mg/24hr Patch) 1 patch TRANSDERM DAILY [facility] Last Admin: 09/19/19 09:04 Dose: 1 patch Documented by: Ondansetron HCl (Zofran) 4 mg IVP Q8HR PRN PRN Reason: Nausea And Vomiting Last Admin: 09/19/19 07:13 Dose: 4 mg Documented by: Pantoprazole Sodium (Protonix) 40 mg PO AC-BID [facility] Last Admin: 09/19/19 17:11 Dose: 40 mg Documented by: Sodium Chloride (Saline Flush) 20 ml IV Q4HR PRN PRN Reason: PICC Line Sodium Chloride (Saline Flush) 10 ml IV WEEKLY [facility] Sodium Chloride (Saline Flush) 10 ml IV Q4HR PRN PRN Reason: PICC Line Tramadol HCl (Ultram) 50 mg PO Q6H PRN PRN Reason: Moderate Pain Last Admin: 09/17/19 09:10 Dose: 50 mg Documented by: Trazodone HCl (Desyrel) 100 mg PO [facility] Last Admin: 09/19/19 22:07 Dose: 100 mg Documented by: Physical examination: VITAL SIGNS: 98.8, 65, 16, 166/70, 98% on room air GENERAL: Laying in bed, comfortable EYES: Pupils equal. Conjunctiva normal. HEENT: External appearance of nose and ears normal, oral cavity grossly normal. NECK: JVD not raised; masses not palpable. HEART: First and second heart sounds are normal; no edema. LUNGS: Respiratory rate increased, decreased breath sounds prolonged expiration and some wheezing. ABDOMEN: Soft, nontender, liver spleen not palpable, no masses palpable. PSYCH: Alert and oriented x3; mood and affect normal. NEUROLOGICAL: [Cranial nerves grossly intact; no facial asymmetry, decreased sensation distally LOWER extremity: Deep Wounds on the plantar aspect of both feet, wound VAC to the left foot INVESTIGATIONS, reviewed in the clinical context: Potassium 4.8 creatinine 1.12 Previous testing -White count 12.5 hemoglobin 10.2 platelets 423 potassium 4.4 creatinine 1.64 Patient's last creatinine was 0.93 documented in November 2017 ESR 114 Renal ultrasound-bilateral some cortical thinning Assessment: -Bilateral foot , deep wounds especially in the plantar aspect deep in a patient with known peripheral artery disease and peripheral neuropathy. acute osteomyelitisleft foot. Also surrounding cellulitis, status post debridement. Wound VAC to left foot. Cultures positive for MRSA. Right foot wound stage III pressure ulcer. -Patient is rather good distal blood supply as per Dr. Hightower. -COPD in a current smoker -Acute kidney injury likely ATN from underlying infection, with improvement -Possible chronic kidney disease stage II from nephrosclerosis, based on ultrasound findings -Chronic nicotine dependence patient cigarette smoker -GERD -Hypertension -Bipolar disorder -Painful Peripheral neuropathy secondary to history of alcoholism Plan: Patient on IV ceftriaxone, vancomycin. Wound VAC in place. discusses with [employer]. working on discharge
[2019-09-20] MEDS: VANCOMYCIN 1,750 MG in SODIUM CHLORIDE 0.9% 500 ML 500 ML IVPB SCH ×2 (00:42→12:29)
[2019-09-20] MEDS: MORPHINE SULFATE 4 MG/ML SYRINGE IVP PRN ×2 (00:47→06:06)
[2019-09-20] MEDS: PANTOPRAZOLE 40 MG TABLET PO SCH ×2 (07:31→15:56)
[2019-09-20] MEDS: HYDROcodone/APAP 10-325MG 1 EACH TAB PO PRN ×3 (07:31→18:34)
[2019-09-20] MEDS: IPRATROPIUM-ALBUTEROL 3 ML NEB INHALATION SCH ×2 (08:02→11:37)
[2019-09-20 08:17] VITALS: BP 133/81; PULSE 65; RESP 17; TEMP 98.1
[2019-09-20] MEDS: NICOTINE 21MG/24HR PATCH TRANSDERM SCH (08:20)
[2019-09-20] MEDS: clonazePAM 0.5 MG TAB PO SCH (08:20)
[2019-09-20] MEDS: CITALOPRAM HYDROBROMIDE 20 MG TAB PO SCH (08:20)
[2019-09-20] MEDS: ENOXAPARIN 40 MG/0.4 ML SYRINGE SQ SCH (08:20)
[2019-09-20] MEDS: cloNIDine HCL 0.1 MG TAB PO SCH ×2 (08:20→15:55)
[2019-09-20] MEDS: LISINOPRIL 20 MG TAB PO SCH (08:20)
[2019-09-20] MEDS: GABAPENTIN 300 MG CAP PO SCH ×2 (08:20→15:56)
[2019-09-20] MEDS: metroNIDAZOLE 500 MG TAB PO SCH ×2 (08:21→15:55)
--- NOTE | 2019-09-20 12:13 | P.PN ---
Subjective Progress Note Date: 09/20/19 Patient seen and evaluated lying in bed. Wound VAC removed at this time per ID. Right lower extremity with dressing clean dry and intact. The patient denies any changes through the night, remains afebrile. Infectious disease managing wound and antibiotics. PICC line placed yesterday for impending discharge today to [facility]. Objective - Vital Signs Vital signs: Vital Signs Temp 98.1 F 09/20/19 07:00 Pulse 65 09/20/19 07:00 Resp 17 09/20/19 08:00 BP 133/81 09/20/19 07:00 Pulse Ox 98 09/20/19 07:00 Intake & Output 09/19/19 09/20/19 09/20/19 18:59 06:59 18:59 Intake Total 890 1380 Output Total 200 875 Balance 690 505 Intake: IV 80 40 Lactated Ringers 1,000 ml 80 40 @ 10 mls/hr IV .Q24H [facility] Rx#:[id number] Intake, IV Titration 100 500 Amount Vancomycin 1,750 mg In 500 Sodium Chloride 0.9% 500 ml 500 ml @ 167 mls/hr IVPB Q12H [facility] Rx#: [id number] cefTRIAXone 2 gm In 100 Sodium Chloride 0.9% 50 ml @ 100 mls/hr IVPB Q24HR [facility] Rx#:[id number] Oral 710 840 Output: Urine 200 875 Other: Voiding Method Urinal Urinal # Voids 2 - Exam General appearance: The patient is alert, oriented, in no acute distress. HET: Head is normocephalic and atraumatic. Heart: S1 S2. Regular rate and rhythm. Lungs: No crackles or wheezes are heard. Extremities: Lower extremities are warm and dry, with palpable DP and PT pulses bilaterally. Right foot dressing clean dry and intact. Left foot with wound with serosanguineous drainage, dressing in place.. - Labs CBC & Chem 7: 09/16/19 07:06 09/20/19 06:40 Labs: Microbiology - Last 24 Hours (Table) 09/16/19 12:22 Anaerobic Culture - Final Foot - Left Anaerobic Gm Negative Bacilli Anaerobic Gm Negative Bacilli#2 Anaerobic Gm Negative Bacilli#3 09/16/19 12:23 Anaerobic Culture - Final Foot - Left Anaerobic Gm Negative Bacilli Anaerobic Gm Negative Bacilli#2 Anaerobic Gm Negative Bacilli#3 Assessment and Plan Assessment: Bilateral foot ulcers status post debridement Cellulitis to right foot Peripheral neuropathy COPD Acute kidney injury Plan: Ongoing dressing changes and wound care per infectious disease/wound care. Continue offloading. Continue antibiotics per infectious disease. Plan is for discharge today to [facility]. The above dictated assessment and findings were discussed with Dr. Melendez. The impression and plan of care have been directed as dictated.
[2019-09-20] MEDS: traMADol 50 MG TAB PO PRN ×2 (12:29→17:27)
[2019-09-20] MEDS ORDERED: LACTULOSE 20 GM/30 ML CUP PO ONE (14:36)
--- NOTE | 2019-09-20 15:03 | P.DS ---
Providers Date of admission: 09/15/19 13:12 Expected date of discharge: 09/20/19 Attending physician: Damien Bruce Consults: 09/14/19 15:26 Consult Physician Stat Consulting Provider: Fredrick Fernandes Consult Reason/Comments: Bilateral foot ulcers, cellulitis Do you want consulting provider notified?: Yes 09/14/19 23:13 Consult Physician Routine Consulting Provider: Chavez Melendez Consult Reason/Comments: Foot wounds with peripheral arterial disease Do you want consulting provider notified?: Yes Primary care physician: Remington Mustafa [facility] Course: Chief Complaint: foot wound Hospital course: This is a pleasant 64-year-old patient of Dr. Mustafa. Chronic stable medical conditions include COPD, peripheral artery disease, GERD, hypertension, bipolar disorder. Patient has been peripheral Neuropathy from alcoholism. Patient was a heavy drinking up to 2018. Patient continues to smoke. Patient's brother Sotero is a legal guardian. Patient's had foot wounds before and has been followed by Dr. vieyra in the past. With surgery for the same. Patient does develop what he describes as blisters for 1 week. In his feet have become more painful. With foul drainage. In the ER was discovered to have wounds of both the plantar aspects of both feet. Rather significant. Antibiotics were started and infectious disease was consulted. Patient has been walking on the same.status post debridement of the foot wounds. Wounds were deep to the bone. Diagnosed with acute osteomyelitis.wound VAC placed on the left foot. Today-. no new issues. Getting antibiotics. Pain control. Discussed about narcotics. Antibiotics discussed with Dr. Coates. Patient is wearing offloading boot. Possibly further surgery down the road. Discussion and discharge planning more than 35 minutes Consultation: Dr. fernandes from ID Dr. Hightower from vascular surgery. Physical examination: VITAL SIGNS: 98.1, 65, 17, 133/81, 98% room air GENERAL: Sitting up, comfortable EYES: Pupils equal. Conjunctiva normal. HEENT: External appearance of nose and ears normal, oral cavity grossly normal. NECK: JVD not raised; masses not palpable. HEART: First and second heart sounds are normal; no edema. LUNGS: Respiratory rate increased, decreased breath sounds prolonged expiration and some wheezing. ABDOMEN: Soft, nontender, liver spleen not palpable, no masses palpable. PSYCH: Alert and oriented x3; mood and affect normal. NEUROLOGICAL: [Cranial nerves grossly intact; no facial asymmetry, decreased sensation distally LOWER extremity: Deep Wounds on the plantar aspect of both feet, wound VAC to the left foot INVESTIGATIONS, reviewed in the clinical context: Potassium 4.8 creatinine 1.12 Previous testing -White count 12.5 hemoglobin 10.2 platelets 423 potassium 4.4 creatinine 1.64 Patient's last creatinine was 0.93 documented in November 2017 ESR 114 Renal ultrasound-bilateral some cortical thinning Assessment: -Bilateral foot , deep wounds especially in the plantar aspect deep in a patient with known peripheral artery disease and peripheral neuropathy. acute osteomyelitis left foot. Also surrounding cellulitis, status post debridement. Wound VAC to left foot. Cultures positive for MRSA. Right foot wound stage III pressure ulcer. -Patient has rather good distal blood supply as per Dr. Hightower. -COPD in a current smoker -Acute kidney injury likely ATN from underlying infection, with improvement -Possible chronic kidney disease stage II from nephrosclerosis, based on ultrasound findings -Chronic nicotine dependence patient cigarette smoker -GERD -Hypertension -Bipolar disorder -Painful Peripheral neuropathy secondary to history of alcoholism Disposition: [facility] Patient Condition at Discharge: Stable Plan - Discharge Summary Discharge Rx Participant: No New Discharge Prescriptions: New Ipratropium-Albuterol Nebulize [Duoneb 0.5 mg-3 mg/3 ml Soln] 3 ml INHALATION RT-TID ampul.neb Nicotine 21Mg/24Hr Patch [Habitrol] 1 patch TRANSDERM DAILY patch Famotidine [Pepcid] 20 mg PO BID #1 tablet Acetaminophen Tab [Tylenol] 650 mg PO Q6HR PRN tab PRN Reason: Mild Pain Or Fever > 100.5 Continue Tamsulosin HCl [Flomax] 0.4 mg PO DAILY cloNIDine HCL [Catapres] 0.1 mg PO TID Citalopram Hydrobromide [CeleXA] 20 mg PO DAILY Lisinopril 20 mg PO DAILY traZODone HCL [Desyrel] 100 mg PO HS Gabapentin 600 mg PO TID #9 tab clonazePAM [KlonoPIN] 0.5 mg PO BID #6 tab HYDROcodone/APAP 10-325MG [Lyburn 10-325] 1 tab PO QID #12 tab Discontinued Ranitidine HCl [Zantac] 150 mg PO BID Discharge Medication List Tamsulosin HCl [Flomax] 0.4 mg PO DAILY 03/26/17 [History] cloNIDine HCL [Catapres] 0.1 mg PO TID 10/05/17 [History] Citalopram Hydrobromide [CeleXA] 20 mg PO DAILY 09/14/19 [History] Lisinopril 20 mg PO DAILY 09/14/19 [History] traZODone HCL [Desyrel] 100 mg PO HS 09/14/19 [History] Acetaminophen Tab [Tylenol] 650 mg PO Q6HR PRN tab 09/20/19 [Rx] Famotidine [Pepcid] 20 mg PO BID #1 tablet 09/20/19 [Rx] Gabapentin 600 mg PO TID #9 tab 09/20/19 [Rx] HYDROcodone/APAP 10-325MG [Lyburn 10-325] 1 tab PO QID #12 tab 09/20/19 [Rx] Ipratropium-Albuterol Nebulize [Duoneb 0.5 mg-3 mg/3 ml Soln] 3 ml INHALATION RT-TID ampul.neb 09/20/19 [Rx] Nicotine 21Mg/24Hr Patch [Habitrol] 1 patch TRANSDERM DAILY patch 09/20/19 [Rx] clonazePAM [KlonoPIN] 0.5 mg PO BID #6 tab 09/20/19 [Rx] Follow up Appointment(s)/Referral(s): Remington Mustafa MD [Primary Care Provider] - As Needed Olga Hightower DO [STAFF PHYSICIAN] - 10 Days [facility] [NON-STAFF] - 09/29/19 9:30 am (1-2 weeks) Fredrick Fernandes MD [STAFF PHYSICIAN] - 10 Days Activity/Diet/Wound Care/Special Instructions: wound vac wound orders per vascular and ID: Left foot wound vac: Granufoam Black 125mmHg Right Foot Aquacell silver cbc/bmp - weekly
--- NOTE | 2019-09-20 17:09 | PN ---
PROGRESS NOTE DATE OF SERVICE: 09/20/2019 REASON FOR FOLLOWUP: 1. Left heel osteomyelitis with MRSA, pasteurella, anaerobes. 2. Right foot plantar wound x2. INTERVAL HISTORY: The patient is currently afebrile, has been breathing comfortably. The patient denies having any chest pain or shortness of breath or cough. No nausea, no vomiting. No abdominal pain or any worsening pain to the bilateral heel wound areas. PHYSICAL EXAMINATION: Blood pressure 133/81 with a pulse of 65, temperature 98.1. He is 98% on room air. General description is a middle-aged male lying in bed in no distress. RESPIRATORY SYSTEM: Unlabored breathing. Clear to auscultation anteriorly. HEART: S1, S2. Regular rate and rhythm. ABDOMEN: Soft. No tenderness. Left heel wound base looks clean after removal of the wound V.A.C. with no significant surrounding redness or any foul-smelling drainage. Right heel wound is currently dressed. LABS: Creatinine 1.06. DIAGNOSTIC IMPRESSION AND PLAN: 1. Patient with left heel osteomyelitis. Culture positive for pasteurella, MRSA and anaerobic Gram-negative . Currently covered with vancomycin and Rocephin to continue to finish a 6-week course of therapy. Local wound care of left heel with a wound V.A.C. Change Thursday, Thursday, Thursday. Follow up in the wound care center in one week. 2. Right heel pressure ulcer x2. Local care to continue with Aquacel Silver dressing and continue with supportive care. MMODL / IJN: [id number] /
[2019-09-21] MEDS ORDERED: VANCOMYCIN TROUGH DUE 1 EACH MISC MISCELLANE ONE (11:00)
--- NOTE | 2019-09-21 12:26 | P.ARTDOP ---
Arterial Doppler LOWER EXTREMITY ARTERIAL DOPPLER: DATE OF SERVICE: 09/15/2019 Reason for study: Bilateral foot ulcers. Doppler waveforms: Multiphasic bilaterally throughout. Pulse volume recording: []. Pressure gradients: None. Ankle-brachial indices: Greater than 1 bilaterally. Toe pressures: [] on the right, [] on the left Impression: Normal study.
--- NOTE | 2019-09-23 09:34 | CDI ---
Documentation Clarification Form Date: 09/23/19 From: Michelle Madrigal Phone: If you have a question about this query, please contact Katherine Duke, Brake [employer]r [employer] at [phone] between 8am and 5pm. Admit Date: 09/15/19 Discharge Date: 09/20/19 Patient Name:Valentin Dale Visit Number: [id number] ATTENTION: The Clinical Documentation Specialists (CDI) and [facility] Coding Staff appreciate your assistance in clarifying documentation. Please respond to the clarification below the line at the bottom and electronically sign. The CDI & [facility] Coding staff will review the response and follow-up if needed. Please note: Queries are made part of the Legal Health Record. If you have any questions, please contact the author of this message via ITS. Dear Dr. Damien Bruce, The diagnosis diabetes was documented in the 09/[address] Deal and 09/[address] Highotwer, but is not noted in subsequent documentation. History/Risk Factors: acute osteomyelitis of left heel, pressure ulcer of left and right heel, pressure ulcer of right & left lateral foot, cellulitis of right foot, ATN, peripheral neuropathy due to alcohol Clinical Indicators: A1c-6.0, Glucose: 119,102, 100, 101, POC Glucose: 124, 103 Treatment: no diabetic medications given Please clarify if the patient has diabetes: Present/active this admission Diabetes ruled out Other, please specify Clinically unable to determine Diabetes ruled out MTDD
--- NOTE | 2019-09-30 13:14 | CDI ---
Documentation Clarification Form Date: 09/30/19 From: Michelle Madrigal Phone: If you have a question about this query, please contact Katherine Duke, Ballroom Dancer at [phone] between 8am and 5pm. Admit Date: 09/15/19 Discharge Date: 09/20/19 Patient Name: Valentin Dale Visit Number: [id number] ATTENTION: The Clinical Documentation Specialists (CDI) and [facility] Coding Staff appreciate your assistance in clarifying documentation. Please respond to the clarification below the line at the bottom and electronically sign. The CDI & [facility] Coding staff will review the response and follow-up if needed. Please note: Queries are made part of the Legal Health Record. If you have any questions, please contact the author of this message via ITS. Dear Dr. Damien Bruce, Diabetes was ruled out per previous query. The diagnosis peripheral artery disease was documented in the record, but the cause of PAD was not documented. Risk Factors: foot ulcers, ATN, bacteremia Clinical Indicators: Bilateral foot ulcers and cellulitis, acute osteomyelitis Treatment: Excisional debridement and IV antibiotics Please clarify if the cause of periphera artery disease: Arteriosclerosis Other, please specify Clinically unable to determine Peripheral arterial disease secondary to possibly arteriosclerosis MTDD
== END 2019-09-20 18:33 | DRG 463 ==
LOC: EC 12:02 → EEVIPCON 12:02 → 6NMEDSUR 15:15 → INTOOBSV 15:15 → 6NMEDSUR 09-15 02:18 → 4SSUR 09-15 12:09 → OBSVTOIN 09-15 13:12
PROVIDERS: ADMIT Hospitalist; ATTEND Hospitalist
PROC: 0KBV0ZZ Excision of Right Foot Muscle, Open Approach (ICD-10-PCS; principal; 2019-09-16 07:30)
PROC: 0QBM0ZZ Excision of Left Tarsal, Open Approach (ICD-10-PCS; principal; 2019-09-16 07:30)
PROC: 0JBQ0ZZ Excision of Right Foot Subcutaneous Tissue and Fascia, Open Approach (ICD-10-PCS; principal; 2019-09-16 07:30)
PROC: 02HV33Z Insertion of Infusion Device into Superior Vena Cava, Percutaneous Approach (ICD-10-PCS; 2019-09-19)
DX: M86.172 Other acute osteomyelitis, left ankle and foot (principal); L89.893 Pressure ulcer of other site, stage 3; L89.624 Pressure ulcer of left heel, stage 4; L89.614 Pressure ulcer of right heel, stage 4; L89.894 Pressure ulcer of other site, stage 4; N17.0 Acute kidney failure with tubular necrosis; L03.115 Cellulitis of right lower limb; R78.81 Bacteremia; G62.1 Alcoholic polyneuropathy; B95.62 Methicillin resistant Staphylococcus aureus infection as the cause of diseases classified elsewhere; B96.89 Other specified bacterial agents as the cause of diseases classified elsewhere; I70.203 Unspecified atherosclerosis of native arteries of extremities, bilateral legs; I12.9 Hypertensive chronic kidney disease with stage 1 through stage 4 chronic kidney disease, or unspecified chronic kidney disease; N18.2 Chronic kidney disease, stage 2 (mild); K21.9 Gastro-esophageal reflux disease without esophagitis; E78.5 Hyperlipidemia, unspecified; J44.9 Chronic obstructive pulmonary disease, unspecified; R26.9 Unspecified abnormalities of gait and mobility; G89.29 Other chronic pain; F10.21 Alcohol dependence, in remission; L40.9 Psoriasis, unspecified; F90.9 Attention-deficit hyperactivity disorder, unspecified type; F41.9 Anxiety disorder, unspecified; F31.9 Bipolar disorder, unspecified; F17.210 Nicotine dependence, cigarettes, uncomplicated; Z71.6 Tobacco abuse counseling; Z79.891 Long term (current) use of opiate analgesic; Z79.899 Other long term (current) drug therapy; Z87.01 Personal history of pneumonia (recurrent); Z86.14 Personal history of Methicillin resistant Staphylococcus aureus infection; Z87.81 Personal history of (healed) traumatic fracture; Z87.19 Personal history of other diseases of the digestive system; Z89.421 Acquired absence of other right toe(s); Z87.11 Personal history of peptic ulcer disease; Z98.890 Other specified postprocedural states; Z88.0 Allergy status to penicillin; Z83.3 Family history of diabetes mellitus; Z82.49 Family history of ischemic heart disease and other diseases of the circulatory system; Z82.3 Family history of stroke; Z81.8 Family history of other mental and behavioral disorders
CPT/HCPCS: 36415; 36573; 76770; 80048; 80053; 81003; 82565; 83036; 85025; 85652; 86140; 87040; 87070; 87075; 87077; 87186; 87205; 93922; 94640; 96361; 96365; 96366; 96367; 96372; 96375; 99285

== ENCOUNTER 2022-01-18 09:23 | Inpatient (IN) | payer MEDICARE, OTHER ==
[2022-01-18 10:21] LABS: Basophils # (A) 0.1 k/uL (0-0.2); Basophils % (A) 1 %; Eosinophils # (A) 0.2 k/uL (0-0.7); Eosinophils % (A) 2 %; HCT 27.9 % (39.0-53.0); HGB 9.5 gm/dL (13.0-17.5); Lymphocytes # (A) 1.1 k/uL (1.0-4.8); Lymphocytes % (A) 12 %; Mean Platelet Volume 7.5; Monocytes # (A) 0.6 k/uL (0-1.0); Monocytes % (A) 6 %; Neutrophils # (A) 7.2 k/uL (1.3-7.7); Neutrophils % (A) 78 %; Platelet Count 273 k/uL (150-450); RBC 2.96 m/uL (4.30-5.90); RDW 12.2 % (11.5-15.5); WBC 9.2 k/uL (3.8-10.6)
[2022-01-18] MEDS ORDERED: cefTRIAXone IN SWFI 1,000 MG/10 ML SYRINGE IVP STA ×2 (10:22→11:47)
--- NOTE | 2022-01-18 10:28 | ED ---
General Adult HPI - General Chief complaint: Skin/Abscess/Foreign Body Stated complaint: Wound/Infection in legs Time Seen by Provider: 01/18/22 09:38 Source: patient, RN notes reviewed Mode of arrival: wheelchair Limitations: no limitations - History of Present Illness Initial comments: 66-year-old male with a past medical history of hyperlipidemia, hypertension, alcoholic peripheral vascular disease, osteomyelitis of the left foot presents to the emergency room for a chief complaint of bilateral foot infection. Patient states he started to get bilateral foot swelling this past Thursday. States he started on cefuroxime and was cultured at wound care. He got a call that he needed to come into the ER for IV antibiotics. Culture was positive for MRSA again.Patient has no other complaints at this time including shortness of breath, chest pain, abdominal pain, nausea or vomiting, headache, or visual changes. - Related Data Home Medications Medication Instructions Recorded Confirmed Tamsulosin HCl [Flomax] 0.4 mg PO DAILY 03/26/17 09/14/19 cloNIDine HCL [Catapres] 0.1 mg PO TID 10/05/17 09/14/19 Citalopram Hydrobromide [CeleXA] 20 mg PO DAILY 09/14/19 09/14/19 lisinopriL 20 mg PO DAILY 09/14/19 09/14/19 traZODone HCL [Desyrel] 100 mg PO HS 09/14/19 09/14/19 Previous Rx's Medication Instructions Recorded Acetaminophen Tab [Tylenol] 650 mg PO Q6HR PRN tab 09/20/19 Famotidine [Pepcid] 20 mg PO BID #1 tablet 09/20/19 Gabapentin 600 mg PO TID #9 tab 09/20/19 HYDROcodone/APAP 10-325MG [Iola 1 tab PO QID #12 tab 09/20/19 10-325] Ipratropium-Albuterol Nebulize 3 ml INHALATION RT-TID ampul.neb 09/20/19 [Duoneb 0.5 mg-3 mg/3 ml Soln] Nicotine 21Mg/24Hr Patch [Habitrol] 1 patch TRANSDERM DAILY patch 09/20/19 Vancomycin 1,750 mg IVPB Q12HR #80 bag 09/20/19 cefTRIAXone [Rocephin] 2,000 mg IVP Q24HR #40 vial 09/20/19 clonazePAM [KlonoPIN] 0.5 mg PO BID #6 tab 09/20/19 metroNIDAZOLE [Flagyl] 500 mg PO Q8HR #120 tab 09/20/19 Allergies Allergy/AdvReac Type Severity Reaction Status Date / Time Penicillins Allergy Dyspnea, Verified 01/18/22 09:33 HIVES, THROAT SWELLING Review of Systems ROS Statement: Those systems with pertinent positive or pertinent negative responses have been documented in the HPI. ROS Other: All systems not noted in ROS Statement are negative. Past Medical History Past Medical History: COPD, GERD/Reflux, Hyperlipidemia, Hypertension, Pneumon ia, Skin Disorder, Vascular Disorder Additional Past Medical History / Comment(s): ETOH abuse, DT's, pancreatitis, chronic pain, PVD, PAD, neuropathy bilateral legs/feet and hands, past nonhealing wounds bilateral feet-past wound care center, 2006 osteomylitis L foot, chronic pain bilateral feet/legs and upper back-pt states he had thoracic vertebrae injury in past, peptic ulcer with surgery, psoriasis, sinus problems, past L clavicular fracture, acute renal failure, electrolyte disturbance. History of Any Multi-Drug Resistant Organisms: MRSA Date of last positivie culture/infection: 01/14/22 MDRO Source:: Left Foot Past Surgical History: Orthopedic Surgery Additional Past Surgical History / Comment(s): Amputation of the fourth and fifth toes on the right through the metatarsal heads, multiple I&D to nonhealing wounds on the R foot, repair of perforated ucler of stomach, EGD/colonoscopy, PICC lines in and out. Past Anesthesia/Blood Transfusion Reactions: Motion Sickness Additional Past Anesthesia/Blood Transfusion Reaction / Comment(s): claustrophobia Past Psychological History: ADD/ADHD, Anxiety, Depression Smoking Status: Never smoker Past Alcohol Use History: None Reported Past Drug Use History: Marijuana - Past Family History Mother Family Medical History: CVA/TIA, Diabetes Mellitus, Vascular Disorder Additional Family Medical History / Comment(s): emotional problems. age 64 of cva Father Family Medical History: Hypertension Additional Family Medical History / Comment(s): age 38 from mva General Exam Limitations: no limitations General appearance: alert, in no apparent distress Head exam: Present: atraumatic Eye exam: Present: normal appearance, PERRL, EOMI. Absent: scleral icterus, conjunctival injection ENT exam: Present: normal exam, mucous membranes moist Neck exam: Present: normal inspection, full ROM. Absent: tenderness Respiratory exam: Present: normal lung sounds bilaterally. Absent: respiratory distress, wheezes Cardiovascular Exam: Present: regular rate, normal rhythm, normal heart sounds Extremities exam: Present: other (Multiple wounds noted to the plantar aspects of the bilateral feet with bilateral edema and erythema noted) Course Vital Signs 01/18/22 01/18/22 09:31 11:27 Temperature 98.5 F Pulse Rate 58 L 58 L Respiratory 18 18 Rate Blood Pressure 102/62 134/90 O2 Sat by Pulse 98 98 Oximetry Medical Decision Making - Medical Decision Making Vitals are stable. Patient is well-appearing. However he does have erythematous and edematous bilateral feet with multiple wounds and amputations. CBC is unremarkable. Chronic anemia noted. CMP unremarkable. Foot x-ray does show possible focal osteomyelitis or septic arthritis of the first and second TMT joints of the left foot. No osteomyelitis of the right foot noted. Revi ewed patient's culture from Thursday. We will start him on Rocephin and vancomycin which she was on previously in the hospital. We will consult infectious disease at admit to Dr. Bruce. - Lab Data Result diagrams: 01/18/22 10:12 01/18/22 10:12 Lab Results 01/18/22 01/18/22 01/18/22 Range/Units 10:12 10:12 10:12 WBC 9.2 (3.8-10.6) k/uL RBC 2.96 L (4.30-5.90) m/uL Hgb 9.5 L (13.0-17.5) gm/dL Hct 27.9 L (39.0-53.0) % MCV 94.0 (80.0-100.0) fL MCH 32.0 (25.0-35.0) pg MCHC 34.0 (31.0-37.0) g/dL RDW 12.2 (11.5-15.5) % Plt Count 273 (150-450) k/uL MPV 7.5 Neutrophils % 78 % Lymphocytes % 12 % Monocytes % 6 % Eosinophils % 2 % Basophils % 1 % Neutrophils # 7.2 (1.3-7.7) k/uL Lymphocytes # 1.1 (1.0-4.8) k/uL Monocytes # 0.6 (0-1.0) k/uL Eosinophils # 0.2 (0-0.7) k/uL Basophils # 0.1 (0-0.2) k/uL Sodium 132 L (137-145) mmol/L Potassium 4.0 (3.5-5.1) mmol/L Chloride 99 (98-107) mmol/L Carbon Dioxide 25 (22-30) mmol/L Anion Gap 8 mmol/L BUN 10 (9-20) mg/dL Creatinine 1.52 H (0.66-1.25) mg/dL Est GFR (CKD-EPI)AfAm 55 (>60 ml/min/1.73 sqM) Est GFR (CKD-EPI)NonAf 47 (>60 ml/min/1.73 sqM) Glucose 110 H (74-99) mg/dL Plasma Lactic Acid Josse 0.8 (0.7-2.0) mmol/L Calcium 8.2 L (8.4-10.2) mg/dL Total Bilirubin 0.5 (0.2-1.3) mg/dL AST 19 (17-59) U/L ALT 11 (4-49) U/L Alkaline Phosphatase 65 (38-126) U/L Total Protein 6.6 (6.3-8.2) g/dL Albumin 3.4 L (3.5-5.0) g/dL Disposition Clinical Impression: Cellulitis of both feet, Septic arthritis, Wound of foot Disposition: ADMITTED IP TO THIS HOSP Is patient prescribed a controlled substance at d/c from ED?: No Referrals: Remington Mustafa MD [Primary Care Provider] - 1-2 days Time of Disposition: 11:26
[2022-01-18 10:37] LABS: Albumin 3.4 g/dL (3.5-5.0); Calcium 8.2 mg/dL (8.4-10.2); Total Bilirubin 0.5 mg/dL (0.2-1.3); Total Protein 6.6 g/dL (6.3-8.2)
[2022-01-18] MEDS: SODIUM CHLORIDE 0.9% 500 ML 500 ML IV SCH ×2 (10:41→11:20)
--- NOTE | 2022-01-18 11:12 | XR ---
EXAMINATION TYPE: XR foot complete bilateral, 3 views each side DATE OF EXAM: 01/18/2022 Comparison: 05/10/2020 Clinical History: 66-year-old male with nonhealing wounds of both feet, cellulitis Findings: Left: Previous partial resection distal aspect fifth metatarsal. Free floating fifth toe. Increasing soft t issue swelling. Possible increasing articular erosion second TMT joint and lateral aspect of the firs t TMT joint. MR toes. Type II accessory navicular. Medial and plantar midfoot wounds. Right: Previous loss of the distal half of the first distal phalanx. Chronic deformity at the ends of the se cond and third toes and previous amputations proximal aspect of the fourth and fifth metatarsal. [employer] parveen ununited fracture fragment of the fifth metatarsal. Type II accessory navicular. Midfoot degenera tive joint space narrowing, subchondral sclerosis, and marginal spurring. Bipartite tibial sesamoid. Forefoot and midfoot soft tissue swelling. Loss of the plantar arch Impression: Left: 1. Marked forefoot and midfoot soft tissue swelling. Medial and plantar mid foot wounds. Possible sub chondral erosion lateral aspect of the first TMT joint and also at the second TMT joint. This appears more pronounced compared to 06/06/2020. Unable to exclude focal osteomyelitis or septic arthritis her e. Right: 2. Chronic changes, bone loss, amputations right foot. Loss of the midfoot arch. Forefoot and midfoot soft tissue swelling has increased. No focal increased lytic destruction to clearly indicate osteomy elitis.
[2022-01-18] MEDS ORDERED: GABAPENTIN 300 MG CAP PO STA (11:18)
[2022-01-18] MEDS ORDERED: HYDROcodone/APAP 10-325MG 1 EACH TAB PO ONE (11:18)
[2022-01-18] MEDS ORDERED: NALOXONE 0.4 MG/ML 1 ML VIAL IV PRN (11:46)
[2022-01-18] MEDS ORDERED: VANCOMYCIN IV PER PHARMACY 1 EACH MISC MISCELLANE PRN (11:48)
[2022-01-18] MEDS ORDERED: VANCOMYCIN 1,500 MG in SODIUM CHLORIDE 0.9% 250 ML IVPB STA (11:51)
[2022-01-18] MEDS: SODIUM CHLORIDE 0.9% 1,000 ML IV SCH ×2 (12:18→21:33)
[2022-01-18] MEDS ORDERED: LACTULOSE 20 GM/30 ML CUP PO PRN (13:35)
[2022-01-18] MEDS ORDERED: CALCIUM CARBONATE 500 MG CHEWABLE PO PRN (13:35)
[2022-01-18] MEDS ORDERED: LORazepam 0.5 MG TAB PO PRN (13:35)
[2022-01-18] MEDS ORDERED: ZOLPIDEM 5 MG TAB PO PRN (13:36)
[2022-01-18] MEDS: HYDROcodone/APAP 10-325MG 1 EACH TAB PO SCH ×3 (13:56→21:31)
--- NOTE | 2022-01-18 14:23 | P.HPIM ---
History of Present Illness H&P Date: 01/18/22 Chief Complaint: Foot abscess This is a pleasant 66-year-old patient of Dr. Mustafa. Chronic stable medical conditions include COPD, peripheral artery disease, GERD, hypertension, bipolar disorder., peripheral Neuropathy from alcoholism. heavy drinking up to 2018. Patient continues to smoke. Patient's brother Sotero is a legal guardian. Patient has chronic foot wounds for which she follows at the wound care center. Patient does wear special shoes. 5 days ago on Thursday patient seen by Dr. Akbar in the wound care center. Patient stated his wounds looked okay then. Since then his feet have become puffy. And more prominent on the plantar surface on both the feet. There has been pus drainage especially from the right foot. Pain is present. No fever no chills. Decided to come in. Review of systems: GEN.: None EYES: None HEENT: None NECK: None RESPIRATORY: Occasional wheezing shortness of breath CARDIOVASCULAR: None GASTROINTESTINAL: None GENITOURINARY: None MUSCULOSKELETAL: Joint pains, as above LYMPHATICS: None HEMATOLOGICAL: None PSYCHIATRY: None NEUROLOGICAL: Decreased peripheral sensation Past medical history to include: COPD, PAD, foot wounds, GERD, hypertension, bipolar disorder, peripheral neuropathy from alcoholism Social history: Stopped drinking heavy alcohol in 2018. Long-standing smoker currently down to about 56 cigarettes a day. Brother Sotero legal guardian Family history: Diabetes, vascular disorder, stroke Physical examination: VITAL SIGNS: 98.3, 58, 18, 102/62, 98% room air GENERAL: BMI 23.7, sitting up in bed awake not in distress. EYES: Pupils equal. Conjunctiva normal. HEENT: External appearance of nose and ears normal, oral cavity grossly normal. NECK: JVD not raised; masses not palpable. HEART: First and second heart sounds are normal; no edema. LUNGS: Respiratory rate normal; decreased breath sounds. ABDOMEN: Soft, nontender, liver spleen not palpable, no masses palpable. PSYCH: Alert and oriented x3; mood and affect normal. MUSCULOSKELETAL:No Clubbing/cyanosis;muscles-grossly intact. Amputation of the fourth and fifth toe on the right to the metatarsal head. Fluctuation with open wound on the plantar surface of both feet especially the right foot. Some surrounding area of redness. NEUROLOGICAL: Cranial nerves grossly intact; no facial asymmetry, power grossly intact. Decreased sensation distally. LYMPHATICS: No lymph nodes palpable in the axilla and neck INVESTIGATIONS, reviewed in the clinical context: White count 9.2 hemoglobin 9.5 platelets 273 sodium 132 potassium 4 creatinine 1.5 to Previous testing: Creatinine 1.06 on September 2019 Assessment and plan: -Bilateral foot , deep abscess especially in the plantar aspect deep in a patient with known peripheral artery disease and peripheral neuropathy. Consultations Dr. Costa from vascular. ID. IV ceftriaxone, IV daptomycin -COPD in a current smoker Albuterol when necessary -Chronic nicotine dependence cigarette smoker Nicotine patch 7 -Acute kidney injury likely ATN from underlying infection Follow labs. IV fluids. Change vancomycin to daptomycin. 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 Klonopin 0.5 mg 3 times a day Celexa 20 mg a day -Painful Peripheral neuropathy secondary to history of alcoholism Daptomycin. IV ceftriaxone. Spoke to Dr. costa from vascular. Patient will need deep I&D. Home medications resumed. Consult ID. Given the complexity and severity of patient's condition expect the patient to be in the hospital at least for 2 overnights Past Medical History Past Medical History: COPD, GERD/Reflux, Hyperlipidemia, Hypertension, Pneumonia, Skin Disorder, Vascular Disorder Additional Past Medical History / Comment(s): ETOH abuse, DT's, pancreatitis, chronic pain, PVD, PAD, neuropathy bilateral legs/feet and hands, past nonhealing wounds bilateral feet-past wound care center, 2006 osteomylitis L foot, chronic pain bilateral feet/legs and upper back-pt states he had thoracic vertebrae injury in past, peptic ulcer with surgery, psoriasis, sinus problems, past L clavicular fracture, acute renal failure, electrolyte disturbance. History of Any Multi-Drug Resistant Organisms: MRSA Date of last positivie culture/infection: 01/14/22 MDRO Source:: Left Foot Past Surgical History: Orthopedic Surgery Additional Past Surgical History / Comment(s): Amputation of the fourth and fifth toes on the right through the metatarsal heads, multiple I&D to nonhealing wounds on the R foot, repair of perforated ucler of stomach, EGD/colonoscopy, PICC lines in and out. Past Anesthesia/Blood Transfusion Reactions: Motion Sickness Additional Past Anesthesia/Blood Transfusion Reaction / Comment(s): claustrophobia Past Psychological History: ADD/ADHD, Anxiety, Depression Smoking Status: Never smoker Past Alcohol Use History: None Reported Past Drug Use History: Marijuana - Past Family History Mother Family Medical History: CVA/TIA, Diabetes Mellitus, Vascular Disorder Additional Family Medical History / Comment(s): emotional problems. age 64 of cva Father Family Medical History: Hypertension Additional Family Medical History / Comment(s): age 38 from mva Medications and Allergies Home Medications Medication Instructions Recorded Confirmed Type Tamsulosin HCl [Flomax] 0.4 mg PO DAILY 03/26/17 01/18/22 History cloNIDine HCL [Catapres] 0.1 mg PO TID 10/05/17 01/18/22 History Citalopram Hydrobromide [CeleXA] 20 mg PO DAILY 09/14/19 01/18/22 History lisinopriL 20 mg PO DAILY 09/14/19 01/18/22 History Famotidine [Pepcid] 20 mg PO BID #1 tablet 09/20/19 01/18/22 Rx HYDROcodone/APAP 10-325MG [Brodnax 1 tab PO QID #12 tab 09/20/19 01/18/22 Rx 10-325] Cefuroxime Axetil [Ceftin] 500 mg PO BID 01/18/22 01/18/22 History Diltiazem HCl [Cartia Xt] 180 mg PO DAILY 01/18/22 01/18/22 History Gabapentin 800 mg PO TID 01/18/22 01/18/22 History clonazePAM [KlonoPIN] 0.5 mg PO TID 01/18/22 01/18/22 History traZODone HCL 150 mg PO HS 01/18/22 01/18/22 History Allergies Allergy/AdvReac Type Severity Reaction Status Date / Time Penicillins Allergy Dyspnea, Verified 01/18/22 12:29 HIVES, THROAT SWELLING Physical Exam Vitals: Vital Signs Temp Pulse Resp BP Pulse Ox 01/18/22 11:27 58 L 18 134/90 98 01/18/22 09:31 98.5 F 58 L 18 102/62 98 Intake and Output 05/13/22 05/14/22 05/14/22 22:59 06:59 14:59 Other: Weight 86.183 kg Results CBC & Chem 7: 01/18/22 10:12 01/18/22 10:12 Labs: Abnormal Lab Results - Last 24 Hours (Table) 01/18/22 01/18/22 Range/Units 10:12 10:12 RBC 2.96 L (4.30-5.90) m/uL Hgb 9.5 L (13.0-17.5) gm/dL Hct 27.9 L (39.0-53.0) % Sodium 132 L (137-145) mmol/L Creatinine 1.52 H (0.66-1.25) mg/dL Glucose 110 H (74-99) mg/dL Calcium 8.2 L (8.4-10.2) mg/dL Albumin 3.4 L (3.5-5.0) g/dL
--- NOTE | 2022-01-18 15:04 | XR ---
EXAMINATION TYPE: XR chest 2V DATE OF EXAM: 01/18/2022 COMPARISON: 10/05/2017 HISTORY: Smoker. Chest pain TECHNIQUE: 3 views FINDINGS: There is no heart failure nor confluent pneumonic infiltrate. Costophrenic angles are clear . There is plate with screws fixing the left clavicle. IMPRESSION: No active cardiopulmonary disease. No change.
[2022-01-18] MEDS: cloNIDine HCL 0.1 MG TAB PO SCH ×2 (17:23→21:31)
[2022-01-18] MEDS: clonazePAM 0.5 MG TAB PO SCH ×2 (17:24→21:31)
[2022-01-18] MEDS: GABAPENTIN 400 MG CAP PO SCH ×2 (17:24→21:31)
[2022-01-18] MEDS: traZODone HCL 50 MG TAB PO SCH (21:31)
[2022-01-18] MEDS: DAPTOmycin 500 MG in SODIUM CHLORIDE 0.9% 50 ML IVPB SCH (21:31)
[2022-01-18] MEDS: FAMOTIDINE 20 MG TAB PO SCH (21:31)
[2022-01-18] MEDS: NICOTINE 21MG/24HR PATCH TRANSDERM SCH (21:32)
[2022-01-19] MEDS ORDERED: VANCOMYCIN 1,500 MG in SODIUM CHLORIDE 0.9% 250 ML IVPB SCH (04:00)
[2022-01-19] MEDS: SODIUM CHLORIDE 0.9% 1,000 ML IV SCH ×3 (04:34→19:42)
[2022-01-19] MEDS: HYDROcodone/APAP 10-325MG 1 EACH TAB PO PRN ×3 (04:34→17:25)
[2022-01-19 06:35] LABS: Basophils % (A) 1 %; Eosinophils # (A) 0.1 k/uL (0-0.7); Eosinophils % (A) 1 %; HCT 30.7 % (39.0-53.0); Lymphocytes # (A) 0.8 k/uL (1.0-4.8); Lymphocytes % (A) 12 %; MCH 31.2 pg (25.0-35.0); MCHC 32.4 g/dL (31.0-37.0); MCV 96.1 fL (80.0-100.0); Mean Platelet Volume 7.1; Monocytes # (A) 0.4 k/uL (0-1.0); Monocytes % (A) 6 %; Neutrophils # (A) 5.1 k/uL (1.3-7.7); Neutrophils % (A) 80 %; Platelet Count 260 k/uL (150-450); RBC 3.19 m/uL (4.30-5.90); RDW 12.3 % (11.5-15.5); WBC 6.4 k/uL (3.8-10.6)
[2022-01-19 06:48] LABS: African American GFR (CKD) 64 (>60 ml/min/1.73 sqM); Anion Gap 7 mmol/L; Blood Urea Nitrogen 9 mg/dL (9-20); Calcium 8.2 mg/dL (8.4-10.2); Carbon Dioxide 25 mmol/L (22-30); Chloride 104 mmol/L (98-107); Glucose 101 mg/dL (74-99); Non-African American GFR(CKD) 56 (>60 ml/min/1.73 sqM); Potassium 4.4 mmol/L (3.5-5.1); Sodium 136 mmol/L (137-145)
[2022-01-19] MEDS: TAMSULOSIN 0.4 MG CAP.ER.24H PO SCH (08:11)
[2022-01-19] MEDS: FAMOTIDINE 20 MG TAB PO SCH ×2 (08:12→21:35)
[2022-01-19] MEDS: DILTIAZEM CD 180 MG CAP.ER.24H PO SCH (08:12)
[2022-01-19] MEDS: GABAPENTIN 400 MG CAP PO SCH ×3 (08:12→21:34)
[2022-01-19] MEDS: CITALOPRAM HYDROBROMIDE 20 MG TAB PO SCH (08:12)
[2022-01-19] MEDS: cloNIDine HCL 0.1 MG TAB PO SCH ×3 (08:12→21:35)
[2022-01-19] MEDS: lisinopriL 20 MG TAB PO SCH (08:12)
[2022-01-19] MEDS: clonazePAM 0.5 MG TAB PO SCH ×3 (08:12→21:35)
[2022-01-19] MEDS: NICOTINE 21MG/24HR PATCH TRANSDERM SCH (08:12)
[2022-01-19] MEDS ORDERED: cefTRIAXone IN SWFI 1,000 MG/10 ML SYRINGE IVP SCH (09:00)
--- NOTE | 2022-01-19 13:00 | P.PN ---
Progress Note - Text Progress Note Date: 01/19/22 Chief Complaint: Foot abscess This is a pleasant 66-year-old patient of Dr. Mustafa. Chronic stable medical conditions include COPD, peripheral artery disease, GERD, hypertension, bipolar disorder., peripheral Neuropathy from alcoholism. heavy drinking up to 2018. Patient continues to smoke. Patient's brother Sotero is a legal guardian. Patient has chronic foot wounds for which she follows at the wound care center. Patient does wear special shoes. 5 days ago on Thursday patient seen by Dr. Akbar in the wound care center. Patient stated his wounds looked okay then. Since then his feet have become puffy. And more prominent on the plantar surface on both the feet. There has been pus drainage especially from the right foot. Pain is present. No fever no chills. Decided to come in. January 19: Dr. Costa called me stating that patient will need orthopedic co nsultation for surgical intervention. This is being done. Continue IV ceftriaxone. Active Medications Hydrocodone Bitart/Acetaminophen (Hydrocodone/Apap 10-325mg 1 Each Tab) 1 each PO QID PRN PRN Reason: Breakthrough Pain Last Admin: 01/19/22 10:55 Dose: 1 each Documented by: Calcium Carbonate/Glycine (Calcium Carbonate 500 Mg Chewable) 1,000 mg PO Q4HR PRN PRN Reason: Dyspepsia Citalopram Hydrobromide (Citalopram Hydrobromide 20 Mg Tab) 20 mg PO DAILY [facility] Last Admin: 01/19/22 08:12 Dose: 20 mg Documented by: Clonazepam (Clonazepam 0.5 Mg Tab) 0.5 mg PO TID [facility] Last Admin: 01/19/22 08:12 Dose: 0.5 mg Documented by: Clonidine (Clonidine Hcl 0.1 Mg Tab) 0.1 mg PO TID [facility] Last Admin: 01/19/22 08:12 Dose: 0.1 mg Documented by: Diltiazem HCl (Diltiazem Cd 180 Mg Cap.Er.24h) 180 mg PO DAILY [facility] Last Admin: 01/19/22 08:12 Dose: 180 mg Documented by: Famotidine (Famotidine 20 Mg Tab) 20 mg PO BID [facility] Last Admin: 01/19/22 08:12 Dose: 20 mg Documented by: Gabapentin (Gabapentin 400 Mg Cap) 800 mg PO TID [facility] Last Admin: 01/19/22 08:12 Dose: 800 mg Documented by: Sodium Chloride (Saline 0.9%) 1,000 mls @ 130 mls/hr IV .Q7H42M [facility] Last Admin: 01/19/22 12:51 Dose: 130 mls/hr Documented by: Daptomycin 500 mg/ Sodium (Chloride) 50 mls @ 100 mls/hr IVPB HS [facility] Last Admin: 01/18/22 21:31 Dose: 100 mls/hr Documented by: Ceftriaxone Sodium 2 gm/ (Sodium Chloride) 50 mls @ 100 mls/hr IVPB BID [facility] Lactulose (Lactulose 20 Gm/30 Ml Cup) 20 gm PO DAILY PRN PRN Reason: Constipation Lisinopril (Lisinopril 20 Mg Tab) 20 mg PO DAILY [facility] Last Admin: 01/19/22 08:12 Dose: 20 mg Documented by: Lorazepam (Lorazepam 0.5 Mg Tab) 0.5 mg PO Q6HR PRN PRN Reason: Anxiety Naloxone HCl (Naloxone 0.4 Mg/Ml 1 Ml Vial) 0.2 mg IV Q2M PRN PRN Reason: Opioid Reversal Nicotine (Nicotine 21mg/24hr Patch) 1 patch TRANSDERM DAILY [facility] Last Admin: 01/19/22 08:12 Dose: 1 patch Documented by: Ondansetron HCl (Ondansetron 4 Mg/2 Ml Vial) 4 mg IVP Q8HR PRN PRN Reason: Nausea And Vomiting Tamsulosin HCl (Tamsulosin 0.4 Mg Cap.Er.24h) 0.4 mg PO DAILY [facility] Last Admin: 01/19/22 08:11 Dose: 0.4 mg Documented by: Trazodone HCl (Trazodone Hcl 50 Mg Tab) 150 mg PO HS [facility] Last Admin: 01/18/22 21:31 Dose: 150 mg Documented by: Zolpidem Tartrate (Zolpidem 5 Mg Tab) 5 mg PO HS PRN PRN Reason: Insomnia Past medical history to include: COPD, PAD, foot wounds, GERD, hypertension, bipolar disorder, peripheral neuropathy from alcoholism Social history: Stopped drinking heavy alcohol in 2018. Long-standing smoker currently down to about 56 cigarettes a day. Brother Sotero legal guardian Family history: Diabetes, vascular disorder, stroke Physical examination: VITAL SIGNS: 98.1, 62, 16, 149-77, 98% room air GENERAL: sitting up in bed awake not in distress. EYES: Pupils equal. Conjunctiva normal. HEENT: External appearance of nose and ears normal, oral cavity grossly normal. NECK: JVD not raised; masses not palpable. HEART: First and second heart sounds are normal; no edema. LUNGS: Respiratory rate normal; decreased breath sounds. ABDOMEN: Soft, nontender, liver spleen not palpable, no masses palpable. PSYCH: Alert and oriented x3; mood and affect normal. MUSCULOSKELETAL:No Clubbing/cyanosis;muscles-grossly intact. Amputation of the fourth and fifth toe on the right to the metatarsal head. Fluctuation with open wound on the plantar surface of both feet especially the right foot. Some surrounding area of redness. NEUROLOGICAL: Cranial nerves grossly intact; no facial asymmetry, power grossly intact. Decreased sensation distally. INVESTIGATIONS, reviewed in the clinical context: January 19: White count 6.4 hemoglobin 10 potassium 4.4 creatinine 1.33 White count 9.2 hemoglobin 9.5 platelets 273 sodium 132 potassium 4 creatinine 1.5 to Previous testing: Creatinine 1.06 on September 2019 Assessment and plan: -Bilateral foot , deep abscess especially in the plantar aspect deep in a patient with known peripheral artery disease and peripheral neuropathy: Slow to respond. Consultations Dr. Costa from vascular. ID. IV ceftriaxone, IV daptomycin. Consult orthopedics -COPD in a current smoker Albuterol when necessary -Chronic nicotine dependence cigarette smoker Nicotine patch 7 -Acute kidney injury likely ATN from underlying infection Follow labs. IV fluids. Change vancomycin to daptomycin. 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 Klonopin 0.5 mg 3 times a day Celexa 20 mg a day -Painful Peripheral neuropathy secondary to history of alcoholism Daptomycin. IV ceftriaxone. Spoke to Dr. costa from vascular. Consult orthopedics. Other medications to continue. Repeat labs Given the complexity and severity of patient's condition expect the patient to be in the hospital at least for 2 overnights
--- NOTE | 2022-01-19 13:33 | P.CNOR ---
History of Present Illness - [facility] Consult date: 01/19/22 Consult reason: other (Bilateral foot wounds) History of present illness: Patient is a 66-year-old male who presented to [facility] with regards to bilateral foot wounds with likely infection. Patient has a known history of peripheral vascular disease and has had multiple procedures on the bilateral feet with regards to previous wounds. Patient was recently evaluated in in the outpatient setting at the wound care clinic. Apparently cultures were taken at that time. Cultures have revealed an MRSA infection. He then reported to the hospital yesterday for further management. He was started on IV antibiotics. Patient was evaluated today at bedside, he is resting comfortably. He states that he's had chronic issues with the bilateral feet for quite some time. He's had multiple debridements done of the bilateral feet including amputations of some of his toes. He states that he does utilize a special boot for the bilateral feet. He has generalized pain throughout the bilateral feet. Patient denies any recent trauma, this including falls. He has no other orthopedic complaints at this time. Review of Systems Constitutional: Reports as per [facility] Past Medical History Past Medical History: COPD, GERD/Reflux, Hyperlipidemia, Hypertension, Pneumonia, Skin Disorder, Vascular Disorder Additional Past Medical History / Comment(s): ETOH abuse, DT's, pancreatitis, chronic pain, PVD, PAD, neuropathy bilateral legs/feet and hands, past nonhealing wounds bilateral feet-past wound care center, 2006 osteomylitis L foot, chronic pain bilateral feet/legs and upper back-pt states he had thoracic vertebrae injury in past, peptic ulcer with surgery, psoriasis, sinus problems, past L clavicular fracture, acute renal failure, electrolyte disturbance. History of Any Multi-Drug Resistant Organisms: MRSA Year Discovered:: 01/14/22 MDRO Source:: Left Foot Past Surgical History: Orthopedic Surgery Additional Past Surgical History / Comment(s): Amputation of the fourth and fifth toes on the right through the metatarsal heads, multiple I&D to nonhealing wounds on the R foot, repair of perforated ucler of stomach, EGD/colonoscopy, PICC lines in and out. Past Anesthesia/Blood Transfusion Reactions: Motion Sickness Additional Past Anesthesia/Blood Transfusion Reaction / Comm: claustrophobia Past Psychological History: ADD/ADHD, Anxiety, Depression Smoking Status: Never smoker Past Alcohol Use History: None Reported Past Drug Use History: Marijuana - Past Family History Mother Family Medical History: CVA/TIA, Diabetes Mellitus, Vascular Disorder Additional Family Medical History / Comment(s): emotional problems. age 64 of cva Father Family Medical History: Hypertension Additional Family Medical History / Comment(s): age 38 from mva Medications and Allergies Home Medications Medication Instructions Recorded Confirmed Type Tamsulosin HCl [Flomax] 0.4 mg PO DAILY 03/26/17 01/18/22 History cloNIDine HCL [Catapres] 0.1 mg PO TID 10/05/17 01/18/22 History Citalopram Hydrobromide [CeleXA] 20 mg PO DAILY 09/14/19 01/18/22 History lisinopriL 20 mg PO DAILY 09/14/19 01/18/22 History Famotidine [Pepcid] 20 mg PO BID #1 tablet 09/20/19 01/18/22 Rx HYDROcodone/APAP 10-325MG [Bethany 1 tab PO QID #12 tab 09/20/19 01/18/22 Rx 10-325] Cefuroxime Axetil [Ceftin] 500 mg PO BID 01/18/22 01/18/22 History Diltiazem HCl [Cartia Xt] 180 mg PO DAILY 01/18/22 01/18/22 History Gabapentin 800 mg PO TID 01/18/22 01/18/22 History clonazePAM [KlonoPIN] 0.5 mg PO TID 01/18/22 01/18/22 History traZODone HCL 150 mg PO HS 01/18/22 01/18/22 History Allergies Allergy/AdvReac Type Severity Reaction Status Date / Time Penicillins Allergy Dyspnea, Verified 01/18/22 12:29 HIVES, THROAT SWELLING Physical Examination Right foot: 2 open ulcers, 1-2cm in diameter are present on the plantar aspect of the foot, more on the medial side near the midfoot/forefoot., There is drainage noted on exam. There is necrotic tissue that surrounds the borders and also granulation tissue present. There is chronic deformity throughout the foot, with multiple toes that have been amputated. Sensation to light touch is intact Skin is warm to touch Left foot: 1open ulcer, 2-3cm in diameter present on the plantar aspect of the foot, more on the medial midfoot region, obvious drainage is present Chronic deformity noted throughout the foot Sensation to light touch is intact Skin is warm to touch Results - Labs Labs: Abnormal Lab Results - Last 24 Hours (Table) 01/19/22 01/19/22 Range/Units 05:48 05:48 RBC 3.19 L (4.30-5.90) m/uL Hgb 10.0 L (13.0-17.5) gm/dL Hct 30.7 L (39.0-53.0) % Lymphocytes # 0.8 L (1.0-4.8) k/uL Sodium 136 L (137-145) mmol/L Creatinine 1.33 H (0.66-1.25) mg/dL Glucose 101 H (74-99) mg/dL Calcium 8.2 L (8.4-10.2) mg/dL Microbiology - Last 24 Hours (Table) 01/18/22 10:12 Blood Culture - Preliminary Blood No Growth after 24 hours 01/18/22 10:12 Blood Culture - Preliminary Blood No Growth after 24 hours H & H 01/18/22 01/19/22 Range/Units 10:12 05:48 Hgb 9.5 L 10.0 L (13.0-17.5) gm/dL Hct 27.9 L 30.7 L (39.0-53.0) % Result Diagrams: 01/19/22 05:48 01/19/22 05:48 - Diagnostic results Ankle/Foot x-ray: report reviewed, image reviewed (Report and images were reviewed. Images demonstrate previous resection of the left fifth metatarsal with also chronic midfoot arthritic changes. Amputation of the fourth and fifth digits also present on the right side, with chronic midfoot arthritic changes ) Assessment and Plan Assessment: Bilateral foot wounds Left foot previous partial fifth metatarsal amputation Left midfoot osteoarthritis Right foot previous fourth and fifth metatarsal amputation Right midfoot osteoarthritis Peripheral vascular disease Multiple medical comorbidities Plan: I was able to discuss the case, this including both physical exam findings and imaging studies my attending Dr. Corona Taking into consideration the patient's known vascular history with previous vascular surgical intervention, we are recommending their services for surgical management Recommend infectious disease consult for antibiotic choice due to positive cultures from the left foot Other medical corps officer and recommendations Please contact our orthopedic service there are any further questions Time with Patient: Less than 30
[2022-01-19] MEDS: traZODone HCL 50 MG TAB PO SCH ×2 (21:34→21:35)
[2022-01-19] MEDS: DAPTOmycin 500 MG in SODIUM CHLORIDE 0.9% 50 ML IVPB SCH (22:23)
[2022-01-20] MEDS: HYDROcodone/APAP 10-325MG 1 EACH TAB PO PRN ×4 (00:39→20:29)
[2022-01-20] MEDS: SODIUM CHLORIDE 0.9% 1,000 ML IV SCH ×3 (03:16→16:34)
[2022-01-20 06:42] LABS: African American GFR (CKD) 70 (>60 ml/min/1.73 sqM); Anion Gap 6 mmol/L; Blood Urea Nitrogen 6 mg/dL (9-20); Calcium 7.9 mg/dL (8.4-10.2); Carbon Dioxide 24 mmol/L (22-30); Chloride 109 mmol/L (98-107); Glucose 108 mg/dL (74-99); Non-African American GFR(CKD) 61 (>60 ml/min/1.73 sqM); Potassium 4.3 mmol/L (3.5-5.1); Sodium 139 mmol/L (137-145)
[2022-01-20] MEDS: TAMSULOSIN 0.4 MG CAP.ER.24H PO SCH (07:50)
[2022-01-20] MEDS: GABAPENTIN 400 MG CAP PO SCH ×3 (07:50→20:28)
[2022-01-20] MEDS: NICOTINE 21MG/24HR PATCH TRANSDERM SCH (07:50)
[2022-01-20] MEDS: cloNIDine HCL 0.1 MG TAB PO SCH ×3 (07:50→20:28)
[2022-01-20] MEDS: DILTIAZEM CD 180 MG CAP.ER.24H PO SCH (07:51)
[2022-01-20] MEDS: CITALOPRAM HYDROBROMIDE 20 MG TAB PO SCH (07:51)
[2022-01-20] MEDS: FAMOTIDINE 20 MG TAB PO SCH ×2 (07:51→20:28)
[2022-01-20] MEDS: lisinopriL 20 MG TAB PO SCH (07:51)
[2022-01-20] MEDS: clonazePAM 0.5 MG TAB PO SCH ×3 (07:51→20:28)
--- NOTE | 2022-01-20 08:33 | P.CONS ---
History of Present Illness - Reason for Consult Consult date: 01/20/22 wound care - History of Present Illness This is a 66-year-old gentleman known to the wound care center. He was last seen on 01/14/2022 with new ulcerations related to not wearing his offloading [place] boots. A deep tissue culture was obtained at that time and antibiotics, cefuroxime axetil, were started per Dr. Akbar. Original cause of wound was Trauma. The date acquired was: 01/29/2021. The wound has been in treatment 48 weeks. The wound is currently classified as a Category/Stage III wound with etiology of Pressure Ulcer and is located on the Left,Medial,Plantar Foot. The wound measures 1.4cm length x 2cm width x 1.5cm depth; 2.199cm^2 area and 3.299cm^3 volume. There is no tunneling or undermining noted. There is a medium amount of serosanguineous drainage noted. The wound margin is thickened. There is large (67-100%) red, pink granulation within the wound bed. There is a small (1-33%) amount of necrotic tissue within the wound bed including Adherent Slough. The periwound skin appearance exhibited: Callus, Scarring, Dry/Scaly, Maceration. The periwound skin appearance did not exhibit: Crepitus, Excoriati on, Induration, Rash, Atrophie [place], Cyanosis, Ecchymosis, Hemosiderin Staining, Mottled, Pallor, Rubor, Erythema. Periwound temperature was noted as No Abnormality. Original cause of wound was Not Known. The date acquired was: 01/14/2022. The wound is currently classified as a Category/Stage III wound with etiology of Pressure Ulcer and is located on the Right,Plantar Foot. The wound measures 1.3cm length x 1.4cm width x 0.5cm depth; 1.429cm^2 area and 0.715cm^3 volume. There is Fat Layer (Subcutaneous Tissue) exposed. There is no tunneling or undermining noted. There is a medium amount of serosanguineous drainage noted. The wound margin is indistinct and nonvisible. There is medium (34-66%) red granulation within the wound bed. There is a medium (34-66%) amount of necrotic tissue within the wound bed including Adherent Slough. The periwound skin appearance exhibited: Callus, Maceration, Erythema. The periwound skin appearance did not exhibit: Crepitus, Excoriation, Induration, Rash, Scarring, Dry/Scaly, Atrophie [place], Cyanosis, Ecchymosis, Hemosiderin Staining, Mottled, Rubor. The surrounding wound skin color is noted with erythema. Periwound temperature was noted as No Abnormality. Review Of Systems: Constitutional: No fever, no chills, no night sweats. No weight change. No weakness, fatigue or lethargy. No daytime sleepiness. Integumentary:reports wounds, no lesions. No rash or pruritus. No unusual bruising. No change in hair or nails. Physical exam: General Appearance: Alert, cooperative, no distress, appears stated age. Skin: See HPI all other Skin color, texture, tugor normal, no rashes or lesions. Neurologic: Alert oriented x3 Assessment: 1. Pressure ulcer of left foot stage III 2. Pressure ulcer of right forefoot stage III 3. Chronic osteomyelitis 4. Charcot foot Plan: 1. Apply absorptive silver, saline was gauze, dry gauze roll gauze and secure with paper tape. Patient has appointment in the wound care center on 02/04/2022 at 11:00. Patient was instructed for evaluation and adjustment repairs to his [place] boot. Thank you for the consultation any questions please contact the wound care center DNP note has been reviewed and discussed with Dr. Baker and the impression and plan of care has been directed as dictated. 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 History of Any Multi-Drug Resistant Organisms: MRSA Year Discovered:: 01/14/22 MDRO Source:: Left Foot Past Surgical History: Orthopedic Surgery Additional Past Surgical History / Comment(s): Amputation of the fourth and fif th toes on the right through the metatarsal heads, multiple I&D to nonhealing wounds on the R foot, repair of perforated ucler of stomach, EGD/colonoscopy, PICC lines in and out. Past Anesthesia/Blood Transfusion Reactions: Motion Sickness Additional Past Anesthesia/Blood Transfusion Reaction / Comm: claustrophobia Past Psychological History: ADD/ADHD, Anxiety, Depression Smoking Status: Never smoker Past Alcohol Use History: None Reported Past Drug Use History: Marijuana - Past Family History Mother Family Medical History: CVA/TIA, Diabetes Mellitus, Vascular Disorder Additional Family Medical History / Comment(s): emotional problems. age 64 of cva Father Family Medical History: Hypertension Additional Family Medical History / Comment(s): age 38 from mva Medications and Allergies Home Medications Medication Instructions Recorded Confirmed Type Tamsulosin HCl [Flomax] 0.4 mg PO DAILY 03/26/17 01/18/22 History cloNIDine HCL [Catapres] 0.1 mg PO TID 10/05/17 01/18/22 History Citalopram Hydrobromide [CeleXA] 20 mg PO DAILY 09/14/19 01/18/22 History lisinopriL 20 mg PO DAILY 09/14/19 01/18/22 History Famotidine [Pepcid] 20 mg PO BID #1 tablet 09/20/19 01/18/22 Rx HYDROcodone/APAP 10-325MG [[place] 1 tab PO QID #12 tab 09/20/19 01/18/22 Rx 10-325] Cefuroxime Axetil [Ceftin] 500 mg PO BID 01/18/22 01/18/22 History Diltiazem HCl [Cartia Xt] 180 mg PO DAILY 01/18/22 01/18/22 History Gabapentin 800 mg PO TID 01/18/22 01/18/22 History clonazePAM [KlonoPIN] 0.5 mg PO TID 01/18/22 01/18/22 History traZODone HCL 150 mg PO HS 01/18/22 01/18/22 History Allergies Allergy/AdvReac Type Severity Reaction Status Date / Time Penicillins Allergy Dyspnea, Verified 01/18/22 12:29 HIVES, THROAT SWELLING Physical Exam Vitals: Vital Signs Temp Pulse Pulse Pulse Resp BP Pulse Ox 01/20/22 07:58 69 164/79 01/20/22 05:16 97.7 F 61 18 173/91 97 01/19/22 21:00 98.6 F 58 L 18 147/75 98 01/19/22 13:00 98.2 F 52 L 16 147/66 98 Intake and Output 01/19/22 01/20/22 01/20/22 22:59 06:59 14:59 Intake Total 2030 Output Total 800 800 Balance 1230 -800 Intake: Intake, IV Titration 1530 Amount DAPTOmycin 500 mg In 50 Sodium Chloride 0.9% 50 ml @ 100 mls/hr IVPB HS [facility] Rx#:[id number] Sodium Chloride 0.9% 1, 1430 000 ml @ 130 mls/hr IV . Q7H42M [facility] Rx#:[id number] cefTRIAXone 2 gm In 50 Sodium Chloride 0.9% 50 ml @ 100 mls/hr IVPB DAILY [facility] Rx#:[id number] Oral 500 Output: Urine 800 800 Other: Voiding Method Urinal # Voids 6 Results CBC & Chem 7: 01/19/22 05:48 01/20/22 05:40 Labs: Abnormal Lab Results - Last 24 Hours (Table) 01/20/22 Range/Units 05:40 Chloride 109 H (98-107) mmol/L BUN 6 L (9-20) mg/dL Glucose 108 H (74-99) mg/dL Calcium 7.9 L (8.4-10.2) mg/dL Microbiology - Last 24 Hours (Table) 01/18/22 10:12 Blood Culture - Preliminary Blood No Growth after 24 hours 01/18/22 10:12 Blood Culture - Preliminary Blood No Growth after 24 hours Assessment and Plan (1) Pressure ulcer of other site, stage 3 Current Visit: Yes Status: Acute Code(s): L89.893 - PRESSURE ULCER OF OTHER SITE, STAGE 3 SNOMED Code(s): 1601788414 (2) Non-pressure chronic ulcer of other part of left foot with muscle involveme nt without evidence of necrosis Current Visit: Yes Status: Acute Code(s): L97.525 - NON-PRS CHR ULC OTH PRT L FOOT WITH MSL INVL W/O EVD OF NECR SNOMED Code(s): 302448191 (3) Non-pressure chronic ulcer of other part of right foot with muscle involvement without evidence of necrosis Current Visit: Yes Status: Acute Code(s): L97.515 - NON-PRS CHR ULC OTH PRT R FOOT WITH MSL INVL W/O EVD OF NECR SNOMED Code(s): 466733706 (4) Osteomyelitis Current Visit: Yes Status: Acute Code(s): M86.9 - OSTEOMYELITIS, UNSPECIFIED SNOMED Code(s): 02596475
--- NOTE | 2022-01-20 10:22 | P.PN ---
Subjective Progress Note Date: 01/20/22 Principal diagnosis: Bilateral foot abscess This is a 66-year-old female has a history of chronic wounds to bilateral feet. He has been following with the wound care center under the care of Dr. Akbar and was recently seen on 01/14/2022 for new ulcerations related to not wearing his offloading [place] boots. Apparently a deep tissue culture was obtained at that time and antibiotics were initiated. Patient has a history of alcoholic peripheral neuropathy. Apparently patient states he had gotten a call stating he needed to come to the emergency department for IV antibiotics. Wound culture came back positive for MRSA, Citrobacter braaki, Enterococcus faecalis VRE. Vascular surgery was consulted for bilateral foot abscess. Orthopedics was also consulted as well, recommending vascular surgery manage patient. Patient states he has no feeling in his feet. Denies any fevers or chills. States he had not been wearing his offloading boots because he broke them. Patient has a history of alcoholism and has recently gone back to drinking. He is currently on ceftriaxone and daptomycin. Left foot x-ray with findings of marked forefoot and midfoot soft tissue swellin g. Medial and plantar midfoot wounds. Possible subchondral erosion lateral aspect of the first TMT joint and also at the second TMT joint. This appears more pronounced compared to 06/06/2020. Unable to exclude focal osteomyelitis or septic arthritis here. Right foot x-ray with findings of chronic changes, bone loss, amputation right foot. Loss of midfoot arch. Forefoot and midfoot soft tissue swelling has increased. No focal increased lytic destruction to clearly indicate osteomyelitis. Objective - Vital Signs Vital signs: Vital Signs Temp 97.7 F 01/20/22 05:16 Pulse 69 01/20/22 07:58 Resp 18 01/20/22 05:16 BP 164/79 01/20/22 07:58 Pulse Ox 97 01/20/22 05:16 Intake & Output 01/19/22 01/20/22 01/20/22 18:59 06:59 18:59 Intake Total 2030 Output Total 800 800 Balance 1230 -800 Intake: Intake, IV Titration 1530 Amount DAPTOmycin 500 mg In 50 Sodium Chloride 0.9% 50 ml @ 100 mls/hr IVPB HS [facility] Rx#:[id number] Sodium Chloride 0.9% 1, 1430 000 ml @ 130 mls/hr IV . Q7H42M [facility] Rx#:[id number] cefTRIAXone 2 gm In 50 Sodium Chloride 0.9% 50 ml @ 100 mls/hr IVPB DAILY [facility] Rx#:[id number] Oral 500 Output: Urine 800 800 Other: Voiding Method Urinal Urinal # Voids 6 - Exam General appearance: The patient is alert, oriented, appears in no acute distress. HET: Head is normocephalic and atraumatic. Pupils are equal and reactive. Neck: Supple without lymphadenopathy. Trachea midline. Extremities: Normal skin color and turgor. Palpable bilateral pedal pulses. Medial plantar aspect of left foot with pressure ulcer, no tunneling or undermining, with serosanguineous drainage. Right foot with plantar ulcer with fat layer exposed, with serosanguineous drainage Neurological: No focal deficits. He sensation bilateral feet. - Labs CBC & Chem 7: 01/19/22 05:48 01/20/22 05:40 Labs: Abnormal Lab Results - Last 24 Hours (Table) 01/20/22 Range/Units 05:40 Chloride 109 H (98-107) mmol/L BUN 6 L (9-20) mg/dL Glucose 108 H (74-99) mg/dL Calcium 7.9 L (8.4-10.2) mg/dL Microbiology - Last 24 Hours (Table) 01/18/22 10:12 Blood Culture - Preliminary Blood No Growth after 24 hours 01/18/22 10:12 Blood Culture - Preliminary Blood No Growth after 24 hours Assessment and Plan Assessment: 1. Pressure ulcers to bilateral feet 2. Chronic osteomyelitis 3. Charcot foot 4. Alcoholism Plan: 1. Continue local wound care 2. Continue antibiotics per recommendations from infectious disease 3. Appreciate input from orthopedics and charcot foot 4. No plans on any vascular surgical intervention at this time. Did discuss with patient if the wounds do not heal with wound care may need to consider amputation. Follow up outpatient recommended. The impression and plan of care has been dictated as directed. Dr. Melendez I performed a history and examination of this patient, discussed the same with the dictator. I agree with the dictator's note ,documented as a scribe. Any additional findings or plans will be noted. Discussed with patient options if failed wound care which would likely be a below knee amputation. I do agree with Dr. Costa if we are able to heal the wounds the patient may benefit from a foot and ankle specialist for possible intervention to treat the Charcot foot.
--- NOTE | 2022-01-20 11:27 | P.GSCN ---
History of Present Illness Consult date: 01/19/22 Reason for Consult: Nonhealing ulcerations bilateral lower extremities. History of present illness: Patient is a very pleasant 66-year-old male alcohol related peripheral neuropathy who has been followed in the wound care center for a significant time frame. 2 days ago he began to experience drainag Plantar surface of the left foot wound. He presented to the emergency room and was admitted. Vascular surgical Consultation has been requested.The patient admits to long-standing history abnormal gait secondary to his neuropathy.The patient did stop drinking alcohol a few although he continues to use tobacco products. The patient has a very Extensive tobacco use history. He denies previous myocardial infarction, CVA or claudication type symptoms. There is no history of ischemic rest pain. Past Medical History Past Medical History: COPD, GERD/Reflux, Hyperlipidemia, Hypertension, Pneumon ia, Skin Disorder, Vascular Disorder Additional Past Medical History / Comment(s): ETOH abuse, DT's, pancreatitis, chronic pain, PVD, PAD, neuropathy bilateral legs/feet and hands, past nonhealing wounds bilateral feet-past wound care center, 2006 osteomylitis L foot, chronic pain bilateral feet/legs and upper back-pt states he had thoracic vertebrae injury in past, peptic ulcer with surgery, psoriasis, sinus problems, past L clavicular fracture, acute renal failure, electrolyte disturbance. History of Any Multi-Drug Resistant Organisms: MRSA Year Discovered:: 01/14/22 MDRO Source:: Left Foot Past Surgical History: Orthopedic Surgery Additional Past Surgical History / Comment(s): Amputation of the fourth and fifth toes on the right through the metatarsal heads, multiple I&D to nonhealing wounds on the R foot, repair of perforated ucler of stomach, EGD/colonoscopy, PICC lines in and out. Past Anesthesia/Blood Transfusion Reactions: Motion Sickness Additional Past Anesthesia/Blood Transfusion Reaction / Comm: claustrophobia Past Psychological History: ADD/ADHD, Anxiety, Depression Smoking Status: Never smoker Past Alcohol Use History: None Reported Past Drug Use History: Marijuana - Past Family History Mother Family Medical History: CVA/TIA, Diabetes Mellitus, Vascular Disorder Additional Family Medical History / Comment(s): emotional problems. age 64 of cva Father Family Medical History: Hypertension Additional Family Medical History / Comment(s): age 38 from mva Medications and Allergies Home Medications Medication Instructions Recorded Confirmed Type Tamsulosin HCl [Flomax] 0.4 mg PO DAILY 03/26/17 01/18/22 History cloNIDine HCL [Catapres] 0.1 mg PO TID 10/05/17 01/18/22 History Citalopram Hydrobromide [CeleXA] 20 mg PO DAILY 09/14/19 01/18/22 History lisinopriL 20 mg PO DAILY 09/14/19 01/18/22 History Famotidine [Pepcid] 20 mg PO BID #1 tablet 09/20/19 01/18/22 Rx HYDROcodone/APAP 10-325MG [[place] 1 tab PO QID #12 tab 09/20/19 01/18/22 Rx 10-325] Cefuroxime Axetil [Ceftin] 500 mg PO BID 01/18/22 01/18/22 History Diltiazem HCl [Cartia Xt] 180 mg PO DAILY 01/18/22 01/18/22 History Gabapentin 800 mg PO TID 01/18/22 01/18/22 History clonazePAM [KlonoPIN] 0.5 mg PO TID 01/18/22 01/18/22 History traZODone HCL 150 mg PO HS 01/18/22 01/18/22 History Allergies Allergy/AdvReac Type Severity Reaction Status Date / Time Penicillins Allergy Dyspnea, Verified 01/18/22 12:29 HIVES, THROAT SWELLING Surgical - Exam Osteopathic Statement: *. No significant issues noted on an osteopathic structural exam other than those noted in the History and Physical/Consult. Vital Signs Temp Pulse Resp BP Pulse Ox 98.5 F 58 L 18 102/62 98 01/18/22 09:31 01/18/22 09:31 01/18/22 09:31 01/18/22 09:31 01/18/22 09:31 Cranial nerves II through XII are grossly intact. Right carotid bruit is noted. Heart was regular without murmur. Lungs are clear to auscultation bilaterally Abdomen is soft without palpable masses. Aorta does not feel enlarged in diameter. Vascular examination of the lower extremities demonstrates femoral, popliteal, dorsalis pedis and posterior tibial pulses to be intact bilaterally.Charcot foot is noted bilaterally and it is over the protruding bony areas on the plantar surface of both f where the wounds are present. Healthy granular tissue appears in both wounds. There is no surrounding cellulitis. No drainage could be expressed from either wound. Significant neuropathy is noted bilateral Results I did review the plain films of the feet. There does not appear to be a deep space Abscess involving either foot on clinical and radiologic exam. - Labs 01/19/22 05:48 01/20/22 05:40 Abnormal Lab Results - Last 24 Hours (Table) 01/20/22 Range/Units 05:40 Chloride 109 H (98-107) mmol/L BUN 6 L (9-20) mg/dL Glucose 108 H (74-99) mg/dL Calcium 7.9 L (8.4-10.2) mg/dL Microbiology - Last 24 Hours (Table) 01/18/22 10:12 Blood Culture - Preliminary Blood No Growth after 24 hours 01/18/22 10:12 Blood Culture - Preliminary Blood No Growth after 24 hours Diabetes panel 01/20/22 Range/Units 05:40 Sodium 139 (137-145) mmol/L Potassium 4.3 (3.5-5.1) mmol/L Chloride 109 H (98-107) mmol/L Carbon Dioxide 24 (22-30) mmol/L BUN 6 L (9-20) mg/dL Creatinine 1.24 (0.66-1.25) mg/dL Glucose 108 H (74-99) mg/dL Calcium 7.9 L (8.4-10.2) mg/dL Calcium panel 01/20/22 Range/Units 05:40 Calcium 7.9 L (8.4-10.2) mg/dL Pituitary panel 01/20/22 Range/Units 05:40 Sodium 139 (137-145) mmol/L Potassium 4.3 (3.5-5.1) mmol/L Chloride 109 H (98-107) mmol/L Carbon Dioxide 24 (22-30) mmol/L BUN 6 L (9-20) mg/dL Creatinine 1.24 (0.66-1.25) mg/dL Glucose 108 H (74-99) mg/dL Calcium 7.9 L (8.4-10.2) mg/dL Adrenal panel 01/20/22 Range/Units 05:40 Sodium 139 (137-145) mmol/L Potassium 4.3 (3.5-5.1) mmol/L Chloride 109 H (98-107) mmol/L Carbon Dioxide 24 (22-30) mmol/L BUN 6 L (9-20) mg/dL Creatinine 1.24 (0.66-1.25) mg/dL Glucose 108 H (74-99) mg/dL Calcium 7.9 L (8.4-10.2) mg/dL Assessment and Plan Assessment: 1. Bilateral plantar foot wound secondary to Charcot foot. 2. Normal arterial perfusion of the lower extremities. 3. Profound peripheral neuropathy secondary to history of alcohol Consumption. 4. Right carotid bruit. 5. Tobacco abuse. Plan: 1.In reference to the open wounds I believe his Charcot foot/bony abnormalities would need to be corrected prior to any real likelihood of wound healing. I Would recommend a foot and ankle surgeon to evaluate this patient in this regard. 2. Patient does have a carotid bruit and with use I would recommend a carotid duplex for screening purposes. 3. Patient exhibits normal arterial perfusion the lower extremities and no vascular surgical intervention is necessary at this time. 4. Would be happy to reevaluate this patient Time with Patient: Greater than 30
--- NOTE | 2022-01-20 14:26 | P.PN ---
Progress Note - Text Progress Note Date: 01/20/22 Chief Complaint: Foot abscess This is a pleasant 66-year-old patient of Dr. Mustafa. Chronic stable medical conditions include COPD, peripheral artery disease, GERD, hypertension, bipolar disorder., peripheral Neuropathy from alcoholism. heavy drinking up to 2018. Patient continues to smoke. Patient's brother Sotero is a legal guardian. Patient has chronic foot wounds for which she follows at the wound care center. Patient does wear special shoes. 5 days ago on Thursday patient seen by Dr. Akbar in the wound care center. Patient stated his wounds looked okay then. Since then his feet have become puffy. And more prominent on the plantar surface on both the feet. There has been pus drainage especially from the right foot. Pain is present. No fever no chills. Decided to come in. January 19: Dr. Costa called me stating that patient will need orthopedic co nsultation for surgical intervention. This is being done. Continue IV ceftriaxone. January 20: Patient is seen by orthopedics Dr. Escalante. They've deferred any surgical intervention to vascular surgery. Patient earlier seen by Dr. Melendez and the present time continue with IV antibiotics. Depending on clinical course amputation may be an option down the road. Discussed with the patient. Active Medications Hydrocodone Bitart/Acetaminophen (Hydrocodone/Apap 10-325mg 1 Each Tab) 1 each PO QID PRN PRN Reason: Breakthrough Pain Last Admin: 01/20/22 14:08 Dose: 1 each Documented by: Calcium Carbonate/Glycine (Calcium Carbonate 500 Mg Chewable) 1,000 mg PO Q4HR PRN PRN Reason: Dyspepsia Citalopram Hydrobromide (Citalopram Hydrobromide 20 Mg Tab) 20 mg PO DAILY [facility] Last Admin: 01/20/22 07:51 Dose: 20 mg Documented by: Clonazepam (Clonazepam 0.5 Mg Tab) 0.5 mg PO TID [facility] Last Admin: 01/20/22 07:51 Dose: 0.5 mg Documented by: Clonidine (Clonidine Hcl 0.1 Mg Tab) 0.1 mg PO TID [facility] Last Admin: 01/20/22 07:50 Dose: 0.1 mg Documented by: Diltiazem HCl (Diltiazem Cd 180 Mg Cap.Er.24h) 180 mg PO DAILY [facility] Last Admin: 01/20/22 07:51 Dose: 180 mg Documented by: Famotidine (Famotidine 20 Mg Tab) 20 mg PO BID [facility] Last Admin: 01/20/22 07:51 Dose: 20 mg Documented by: Gabapentin (Gabapentin 400 Mg Cap) 800 mg PO TID [facility] Last Admin: 01/20/22 07:50 Dose: 800 mg Documented by: Sodium Chloride (Saline 0.9%) 1,000 mls @ 130 mls/hr IV .Q7H42M [facility] Last Admin: 01/20/22 11:24 Dose: Not Given Documented by: Daptomycin 500 mg/ Sodium (Chloride) 50 mls @ 100 mls/hr IVPB HS [facility] Last Admin: 01/19/22 22:23 Dose: 100 mls/hr Documented by: Ceftriaxone Sodium 2 gm/ (Sodium Chloride) 50 mls @ 100 mls/hr IVPB BID [facility] Last Admin: 01/20/22 07:49 Dose: 100 mls/hr Documented by: Lactulose (Lactulose 20 Gm/30 Ml Cup) 20 gm PO DAILY PRN PRN Reason: Constipation Lisinopril (Lisinopril 20 Mg Tab) 20 mg PO DAILY [facility] Last Admin: 01/20/22 07:51 Dose: 20 mg Documented by: Lorazepam (Lorazepam 0.5 Mg Tab) 0.5 mg PO Q6HR PRN PRN Reason: Anxiety Naloxone HCl (Naloxone 0.4 Mg/Ml 1 Ml Vial) 0.2 mg IV Q2M PRN PRN Reason: Opioid Reversal Nicotine (Nicotine 21mg/24hr Patch) 1 patch TRANSDERM DAILY [facility] Last Admin: 01/20/22 07:50 Dose: 1 patch Documented by: Ondansetron HCl (Ondansetron 4 Mg/2 Ml Vial) 4 mg IVP Q8HR PRN PRN Reason: Nausea And Vomiting Tamsulosin HCl (Tamsulosin 0.4 Mg Cap.Er.24h) 0.4 mg PO DAILY [facility] Last Admin: 01/20/22 07:50 Dose: 0.4 mg Documented by: Trazodone HCl (Trazodone Hcl 50 Mg Tab) 150 mg PO HS [facility] Last Admin: 01/19/22 21:35 Dose: 150 mg Documented by: Zolpidem Tartrate (Zolpidem 5 Mg Tab) 5 mg PO HS PRN PRN Reason: Insomnia Past medical history to include: COPD, PAD, foot wounds, GERD, hypertension, bipolar disorder, peripheral neuropathy from alcoholism Social history: Stopped drinking heavy alcohol in 2018. Long-standing smoker currently down to about 56 cigarettes a day. Brother Sotero legal guardian Family history: Diabetes, vascular disorder, stroke Physical examination: VITAL SIGNS: 97.7, 61, 18, 173/91, 97% room air GENERAL: sitting up in bed awake, comfortable EYES: Pupils equal. Conjunctiva normal. HEENT: External appearance of nose and ears normal, oral cavity grossly normal. NECK: JVD not raised; masses not palpable. HEART: First and second heart sounds are normal; no edema. LUNGS: Respiratory rate normal; decreased breath sounds. ABDOMEN: Soft, nontender, liver spleen not palpable, no masses palpable. PSYCH: Alert and oriented x3; mood and affect normal. MUSCULOSKELETAL:No Clubbing/cyanosis;muscles-grossly intact. Amputation of the fourth and fifth toe on the right to the metatarsal head. Fluctuation with open wound on the plantar surface of both feet especially the right foot. Some surrounding area of redness. NEUROLOGICAL: Cranial nerves grossly intact; no facial asymmetry, power grossly intact. Decreased sensation distally. INVESTIGATIONS, reviewed in the clinical context: January 20: Potassium 4.3 creatinine 1.24 January 19: White count 6.4 hemoglobin 10 potassium 4.4 creatinine 1.33 White count 9.2 hemoglobin 9.5 platelets 273 sodium 132 potassium 4 creatinine 1.5 to Previous testing: Creatinine 1.06 on September 2019 Assessment and plan: -Bilateral foot , deep abscess especially in the plantar aspect deep in a patient with known peripheral artery disease and peripheral neuropathy: Slow to respond. IV ceftriaxone, IV daptomycin. No surgical intervention per orthopedics [place] to vascular. Peripheral vascular documented IV antibiotics with possible amputation depending on clinical course -COPD in a current smoker Albuterol when necessary -Chronic nicotine dependence cigarette smoker Nicotine patch 7 -Acute kidney injury likely ATN from underlying infection: Slow to respond Follow labs. IV fluids. IV daptomycin. 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 Klonopin 0.5 mg 3 times a day Celexa 20 mg a day -Painful Peripheral neuropathy secondary to history of alcoholism Daptomycin. IV ceftriaxone. To continue antibiotic present time. No surgical intervention currently depending on clinical course. Discussed with the patient.
--- NOTE | 2022-01-20 17:53 | US ---
EXAMINATION TYPE: US carotid duplex BILAT DATE OF EXAM: 01/20/2022 COMPARISON: NONE CLINICAL HISTORY: Bruit. bruit EXAM MEASUREMENTS: RIGHT: Peak Systolic Velocity (PSV) cm/sec ----- Right CCA: 135 ----- Right ICA: 128 ----- Right ECA: 150 ICA/CCA ratio: 0.95 RIGHT: End Diastole cm/sec ----- Right CCA: 18.3 ----- Right ICA: 11.0 ----- Right ECA: 4.9 LEFT: Peak Systolic Velocity (PSV) cm/sec ----- Left CCA: 103 ----- Left ICA: 134 ----- Left ECA: 168 ICA/CCA ratio: 1.30 LEFT: End Diastole cm/sec ----- Left CCA: 18.9 ----- Left ICA: 42.6 ----- Left ECA: 0.0 VERTEBRALS (direction of flow): Right Vertebral: Antegrade Left Vertebral: Antegrade Rhythm: Normal Mild to moderate plaque bilateral bifurcations. increased velocities bilateral ECA's, greater on the left IMPRESSION: 50-69% stenosis of the bilateral internal carotid arteries at the bifurcation by peak systolic veloci ty. Criteria for Assigning % of Stenosis / Diameter reduction (Estimation based on the indirect measurements of the internal carotid artery velocities (ICA PSV). 1. Normal (no stenosis)=ICA PSV < 125 cm/s: ratio < 2.0: ICA EDV<40 cm/s. 2. Less than 50% stenosis=ICA PSV < 125 cm/s: ratio < 2.0: ICA EDV<40 cm/s. 3. 50 to 69% stenosis=ICA PSV of 125 to 230 cm/s: ration 2.0 ? 4.0: ICA EDV 40-100 cm/s. 4. Greater than 70% stenosis to near occlusion= ICA PSV > 230 cm/s: ratio > 4.0: ICA EDV > 100 cm/s. 5. Near occlusion= ICA PSV velocities may be low or undetectable: variable ratio and ICA EDV. 6. Total occlusion=unable to detect flow.
[2022-01-20 18:12] VITALS: BMI 23.7
[2022-01-20] MEDS: DAPTOmycin 500 MG in SODIUM CHLORIDE 0.9% 50 ML IVPB SCH (20:27)
--- NOTE | 2022-01-20 21:54 | P.CONS ---
History of Present Illness - Reason for Consult Consult date: 01/20/22 Osteomyelitis /cellulitis Requesting physician: Mickey Alicea - Chief Complaint Increasing swelling redness and drainage from his foot wound x few days - History of Present Illness Patient is a 66-year male with a past medical history significant for diabetes mellitus in this patient did have history of diabetic foot infection with a nonhealing wound on the plantar aspect of the left foot for the patient to follow at [facility] patient presented to the ER on 01/18/2021 as per instruction of his home care nurse who was concerned for bilateral foot wound and secondary cellulitis patient apparently has been evaluated the wound care center on Thursday he did have a wound cultures obtained because of concern for infection he was started on cefuroxime, subsequently the patient received a call from the wound care center concerning for MRSA and need for IV antibiotic therapy, patient on presentation to the hospital was afebrile and no fever have been recorded subsequently patient did have normal white count creatinine was mildly elevated blood cultures obtained which are currently pending cultures obtained from the left foot on 01/14/2022 did grew VRE MRSA and Citrobacter patient is currently being treated with Rocephin and daptomycin infectious disease was consulted for further management of antibiotic therapy patient did have x-ray of the foot patient was marked forefoot and midfoot soft tissue swelling chronic changes bone loss on the right foot no focal increase lytic destruction patient has been evaluated by orthopedics and vascular surgery, currently no pain for any surgical drainage, the patient is complaining of pain to bilateral foot wound area especially to the right foot intensity is almost 7- 8 out of 10 no radiation and the patient was complaining of some purulent drainage. Review of Systems Positive point has been mentioned in the HPI rest of the systems are negative Past Medical History Past Medical History: COPD, GERD/Reflux, Hyperlipidemia, Hypertension, Pneumonia, Skin Disorder, Vascular Disorder Additional Past Medical History / Comment(s): ETOH abuse, DT's, pancreatitis, chronic pain, PVD, PAD, neuropathy bilateral legs/feet and hands, past nonhealing wounds bilateral feet-past wound care center, 2006 osteomylitis L foot, chronic pain bilateral feet/legs and upper back-pt states he had thoracic vertebrae injury in past, peptic ulcer with surgery, psoriasis, sinus problems, past L clavicular fracture, acute renal failure, electrolyte disturbance. History of Any Multi-Drug Resistant Organisms: MRSA Year Discovered:: 01/14/22 MDRO Source:: Left Foot Past Surgical History: Orthopedic Surgery Additional Past Surgical History / Comment(s): Amputation of the fourth and fifth toes on the right through the metatarsal heads, multiple I&D to nonhealing wounds on the R foot, repair of perforated ucler of stomach, EGD/colonoscopy, PICC lines in and out. Past Anesthesia/Blood Transfusion Reactions: Motion Sickness Additional Past Anesthesia/Blood Transfusion Reaction / Comm: claustrophobia Past Psychological History: ADD/ADHD, Anxiety, Depression Smoking Status: Never smoker Past Alcohol Use History: None Reported Past Drug Use History: Marijuana - Past Family History Mother Family Medical History: CVA/TIA, Diabetes Mellitus, Vascular Disorder Additional Family Medical History / Comment(s): emotional problems. age 64 of cva Father Family Medical History: Hypertension Additional Family Medical History / Comment(s): age 38 from mva Medications and Allergies Home Medications Medication Instructions Recorded Confirmed Type Tamsulosin HCl [Flomax] 0.4 mg PO DAILY 03/26/17 01/18/22 History cloNIDine HCL [Catapres] 0.1 mg PO TID 10/05/17 01/18/22 History Citalopram Hydrobromide [CeleXA] 20 mg PO DAILY 09/14/19 01/18/22 History lisinopriL 20 mg PO DAILY 09/14/19 01/18/22 History Famotidine [Pepcid] 20 mg PO BID #1 tablet 09/20/19 01/18/22 Rx HYDROcodone/APAP 10-325MG [Bunch 1 tab PO QID #12 tab 09/20/19 01/18/22 Rx 10-325] Cefuroxime Axetil [Ceftin] 500 mg PO BID 01/18/22 01/18/22 History Diltiazem HCl [Cartia Xt] 180 mg PO DAILY 01/18/22 01/18/22 History Gabapentin 800 mg PO TID 01/18/22 01/18/22 History clonazePAM [KlonoPIN] 0.5 mg PO TID 01/18/22 01/18/22 History traZODone HCL 150 mg PO HS 01/18/22 01/18/22 History Allergies Allergy/AdvReac Type Severity Reaction Status Date / Time Penicillins Allergy Dyspnea, Verified 01/18/22 12:29 HIVES, THROAT SWELLING Physical Exam Vitals: Vital Signs Temp Pulse Pulse Pulse Resp BP Pulse Ox 01/20/22 07:58 69 164/79 01/20/22 05:16 97.7 F 61 18 173/91 97 01/19/22 21:00 98.6 F 58 L 18 147/75 98 01/19/22 13:00 98.2 F 52 L 16 147/66 98 Intake and Output 01/19/22 01/20/22 01/20/22 22:59 06:59 14:59 Intake Total 2030 Output Total 800 800 Balance 1230 -800 Intake: Intake, IV Titration 1530 Amount DAPTOmycin 500 mg In 50 Sodium Chloride 0.9% 50 ml @ 100 mls/hr IVPB HS [facility] Rx#:[id number] Sodium Chloride 0.9% 1, 1430 000 ml @ 130 mls/hr IV . Q7H42M [facility] Rx#:[id number] cefTRIAXone 2 gm In 50 Sodium Chloride 0.9% 50 ml @ 100 mls/hr IVPB DAILY [facility] Rx#:[id number] Oral 500 Output: Urine 800 800 Other: Voiding Method Urinal # Voids 6 GENERAL DESCRIPTION: Elderly male lying in bed, no distress. No tachypnea or accessory muscle of respiration use. HEENT: Shows Pallor , no scleral icterus. Oral mucous membrane is dry. No pharyngeal erythema or thrush NECK: Trachea central, no thyromegaly. LUNGS: Unlabored breathing. Clear to auscultation anteriorly. No wheeze or crackle. HEART: S1, S2, regular rate and rhythm. No loud murmur ABDOMEN: Soft, no tenderness , guarding or rigidity, no organomegaly EXTREMITIES: Left foot plantar wound with no slough tissue some surrounding swelling or significant redness or drainage right foot plantar wound 2 with minimal slough tissue some surrounding redness no foul-smelling drainage SKIN: No rash, no masses palpable. NEUROLOGICAL: The patient is awake, alert, oriented x3, mood and affect normal. Results CBC & Chem 7: 01/19/22 05:48 01/20/22 05:40 Labs: Abnormal Lab Results - Last 24 Hours (Table) 01/20/22 Range/Units 05:40 Chloride 109 H (98-107) mmol/L BUN 6 L (9-20) mg/dL Glucose 108 H (74-99) mg/dL Calcium 7.9 L (8.4-10.2) mg/dL Microbiology - Last 24 Hours (Table) 01/18/22 10:12 Blood Culture - Preliminary Blood No Growth after 24 hours 01/18/22 10:12 Blood Culture - Preliminary Blood No Growth after 24 hours Assessment and Plan (1) Cellulitis of both feet Current Visit: Yes Status: Acute Code(s): L03.115 - CELLULITIS OF RIGHT LOWER LIMB; L03.116 - CELLULITIS OF LEFT LOWER LIMB SNOMED Code(s): 441886927 Plan: 1patient with bilateral diabetic foot plantar ulceration and concern for secondary cellulitis patient involving the right foot and possible deep infection such as osteomyelitis L excluded, superficial culture be positive for MRSA VRE and Citrobacter. 2patient benefit from surgical debridement and deep culture. 3we will check inflammatory markers. 4renal insufficiency and high risk of nephrotoxicity from vancomycin. 5continue the daptomycin and Rocephin and local wound care per wound care team. We will follow on clinical condition and cultures to further adjust medication if needed Thank you for this consultation will follow this patient along with you Time with Patient: Greater than 30
[2022-01-21] MEDS: SODIUM CHLORIDE 0.9% 1,000 ML IV SCH ×3 (02:31→17:13)
[2022-01-21] MEDS: HYDROcodone/APAP 10-325MG 1 EACH TAB PO PRN ×4 (02:43→20:38)
[2022-01-21] MEDS: ONDANSETRON 4 MG/2 ML VIAL IVP PRN ×2 (08:43→20:34)
[2022-01-21] MEDS: NICOTINE 21MG/24HR PATCH TRANSDERM SCH (08:47)
[2022-01-21] MEDS: TAMSULOSIN 0.4 MG CAP.ER.24H PO SCH (08:48)
[2022-01-21] MEDS: lisinopriL 20 MG TAB PO SCH (08:48)
[2022-01-21] MEDS: FAMOTIDINE 20 MG TAB PO SCH ×2 (08:48→20:38)
[2022-01-21] MEDS: GABAPENTIN 400 MG CAP PO SCH ×3 (08:48→20:38)
[2022-01-21] MEDS: clonazePAM 0.5 MG TAB PO SCH ×3 (08:48→20:38)
[2022-01-21] MEDS: CITALOPRAM HYDROBROMIDE 20 MG TAB PO SCH (08:48)
[2022-01-21] MEDS: cloNIDine HCL 0.1 MG TAB PO SCH ×3 (08:59→20:38)
[2022-01-21] MEDS: DILTIAZEM CD 180 MG CAP.ER.24H PO SCH (09:00)
--- NOTE | 2022-01-21 10:54 | P.PN ---
Subjective Progress Note Date: 01/21/22 Principal diagnosis: Bilateral foot abscess Patient is seen and examined as a follow-up. Wound care and infectious disease are following. Plan is patient will follow up as previously scheduled by the wound care center as he is been established with Dr. Akbar. Dr. Costa had ordered a carotid duplex which reports bilateral internal carotid artery stenosis estimated at 50-69%. Patient denies any focal deficits. He is afebrile. Objective - Vital Signs Vital signs: Vital Signs Temp 98.1 F 01/21/22 04:37 Pulse 63 01/21/22 04:37 Resp 18 01/21/22 04:37 BP 163/83 01/21/22 05:06 Pulse Ox 99 01/21/22 04:37 Intake & Output 01/20/22 01/21/22 01/21/22 18:59 06:59 18:59 Intake Total 1660 Output Total 800 Balance 860 Weight 86.183 kg Intake: Intake, IV Titration 1660 Amount DAPTOmycin 500 mg In 50 Sodium Chloride 0.9% 50 ml @ 100 mls/hr IVPB HS [facility] Rx#:[id number] Sodium Chloride 0.9% 1, 1560 000 ml @ 130 mls/hr IV . Q7H42M [facility] Rx#:[id number] cefTRIAXone 2 gm In 50 Sodium Chloride 0.9% 50 ml @ 100 mls/hr IVPB BID [facility] Rx#:[id number] Output: Urine 800 Other: # Voids 3 - Exam General appearance: The patient is alert, oriented, appears in no acute distress. HET: Head is normocephalic and atraumatic. Pupils are equal and reactive. Neck: Supple without lymphadenopathy. Trachea midline. Extremities: Normal skin color and turgor. Palpable bilateral pedal pulses. Medial plantar aspect of left foot with pressure ulcer, no tunneling or undermining, with serosanguineous drainage. Right foot with plantar ulcer with fat layer exposed, with serosanguineous drainage Neurological: No focal deficits. He sensation bilateral feet. - Labs CBC & Chem 7: 01/19/22 05:48 01/20/22 05:40 Labs: Microbiology - Last 24 Hours (Table) 01/18/22 10:12 Blood Culture - Preliminary Blood No Growth after 48 hours 01/18/22 10:12 Blood Culture - Preliminary Blood No Growth after 48 hours Assessment and Plan Assessment: 1. Pressure ulcers to bilateral feet 2. Chronic osteomyelitis 3. Charcot foot 4. Alcoholism Plan: 1. Continue local wound care 2. Continue antibiotics per recommendations from infectious disease 3. Patient to follow-up with Dr. Fonseca for outpatient surveillance of carotid stenosis 4. No vascular surgical intervention planned at this time. Did discuss with patient if the wounds do not heal with wound care may need to consider amputation. Follow up outpatient wound center. Thank you for this consultation, we will sign off at this time. The impression and plan of care has been dictated as directed. Dr. Melendez I performed a history and examination of this patient, discussed the same with the dictator. I agree with the dictator's note ,documented as a scribe. Any additional findings or plans will be noted.
--- NOTE | 2022-01-21 17:18 | P.PN ---
Progress Note - Text Progress Note Date: 01/21/22 Chief Complaint: Foot abscess This is a pleasant 66-year-old patient of Dr. Mustafa. Chronic stable medical conditions include COPD, peripheral artery disease, GERD, hypertension, bipolar disorder., peripheral Neuropathy from alcoholism. heavy drinking up to 2018. Patient continues to smoke. Patient's brother Sotero is a legal guardian. Patient has chronic foot wounds for which she follows at the wound care center. Patient does wear special shoes. 5 days ago on Thursday patient seen by Dr. Akbar in the wound care center. Patient stated his wounds looked okay then. Since then his feet have become puffy. And more prominent on the plantar surface on both the feet. There has been pus drainage especially from the right foot. Pain is present. No fever no chills. Decided to come in. Patient has bilateral Charcot foot. Pressure ulcers. January 19: Dr. Costa called me stating that patient will need orthopedic consultation for surgical intervention. This is being done. Continue IV ceftriaxone. January 20: Patient is seen by orthopedics Dr. Escalante. They've deferred any surgical intervention to vascular surgery. Patient earlier seen by Dr. Melendez and the present time continue with IV antibiotics. Depending on clinical course amputation may be an option down the road. Discussed with the patient. Active Medications Hydrocodone Bitart/Acetaminophen (Hydrocodone/Apap 10-325mg 1 Each Tab) 1 each PO QID PRN PRN Reason: Breakthrough Pain Last Admin: 01/20/22 14:08 Dose: 1 each Documented by: Calcium Carbonate/Glycine (Calcium Carbonate 500 Mg Chewable) 1,000 mg PO Q4HR PRN PRN Reason: Dyspepsia Citalopram Hydrobromide (Citalopram Hydrobromide 20 Mg Tab) 20 mg PO DAILY [facility] Last Admin: 01/20/22 07:51 Dose: 20 mg Documented by: Clonazepam (Clonazepam 0.5 Mg Tab) 0.5 mg PO TID [facility] Last Admin: 01/20/22 07:51 Dose: 0.5 mg Documented by: Clonidine (Clonidine Hcl 0.1 Mg Tab) 0.1 mg PO TID [facility] Last Admin: 01/20/22 07:50 Dose: 0.1 mg Documented by: Diltiazem HCl (Diltiazem Cd 180 Mg Cap.Er.24h) 180 mg PO DAILY [facility] Last Admin: 01/20/22 07:51 Dose: 180 mg Documented by: Famotidine (Famotidine 20 Mg Tab) 20 mg PO BID [facility] Last Admin: 01/20/22 07:51 Dose: 20 mg Documented by: Gabapentin (Gabapentin 400 Mg Cap) 800 mg PO TID [facility] Last Admin: 01/20/22 07:50 Dose: 800 mg Documented by: Sodium Chloride (Saline 0.9%) 1,000 mls @ 130 mls/hr IV .Q7H42M [facility] Last Admin: 01/20/22 11:24 Dose: Not Given Documented by: Daptomycin 500 mg/ Sodium (Chloride) 50 mls @ 100 mls/hr IVPB HS [facility] Last Admin: 01/19/22 22:23 Dose: 100 mls/hr Documented by: Ceftriaxone Sodium 2 gm/ (Sodium Chloride) 50 mls @ 100 mls/hr IVPB BID [facility] Last Admin: 01/20/22 07:49 Dose: 100 mls/hr Documented by: Lactulose (Lactulose 20 Gm/30 Ml Cup) 20 gm PO DAILY PRN PRN Reason: Constipation Lisinopril (Lisinopril 20 Mg Tab) 20 mg PO DAILY [facility] Last Admin: 01/20/22 07:51 Dose: 20 mg Documented by: Lorazepam (Lorazepam 0.5 Mg Tab) 0.5 mg PO Q6HR PRN PRN Reason: Anxiety Naloxone HCl (Naloxone 0.4 Mg/Ml 1 Ml Vial) 0.2 mg IV Q2M PRN PRN Reason: Opioid Reversal Nicotine (Nicotine 21mg/24hr Patch) 1 patch TRANSDERM DAILY [facility] Last Admin: 01/20/22 07:50 Dose: 1 patch Documented by: Ondansetron HCl (Ondansetron 4 Mg/2 Ml Vial) 4 mg IVP Q8HR PRN PRN Reason: Nausea And Vomiting Tamsulosin HCl (Tamsulosin 0.4 Mg Cap.Er.24h) 0.4 mg PO DAILY [facility] Last Admin: 01/20/22 07:50 Dose: 0.4 mg Documented by: Trazodone HCl (Trazodone Hcl 50 Mg Tab) 150 mg PO [facility] Last Admin: 01/19/22 21:35 Dose: 150 mg Documented by: Zolpidem Tartrate (Zolpidem 5 Mg Tab) 5 mg PO HS PRN PRN Reason: Insomnia Past medical history to include: COPD, PAD, foot wounds, GERD, hypertension, bipolar disorder, peripheral neuropathy from alcoholism Social history: Stopped drinking heavy alcohol in 2018. Long-standing smoker currently down to about 56 cigarettes a day. Brother Sotero legal guardian Family history: Diabetes, vascular disorder, stroke Physical examination: VITAL SIGNS: 97.7, 61, 18, 173/91, 97% room air GENERAL: sitting up in bed awake, comfortable EYES: Pupils equal. Conjunctiva normal. HEENT: External appearance of nose and ears normal, oral cavity grossly normal. NECK: JVD not raised; masses not palpable. HEART: First and second heart sounds are normal; no edema. LUNGS: Respiratory rate normal; decreased breath sounds. ABDOMEN: Soft, nontender, liver spleen not palpable, no masses palpable. PSYCH: Alert and oriented x3; mood and affect normal. MUSCULOSKELETAL:No Clubbing/cyanosis;muscles-grossly intact. Amputation of the fourth and fifth toe on the right to the metatarsal head. Fluctuation with open wound on the plantar surface of both feet especially the right foot. Some surrounding area of redness. NEUROLOGICAL: Cranial nerves grossly intact; no facial asymmetry, power grossly intact. Decreased sensation distally. INVESTIGATIONS, reviewed in the clinical context: January 20: Potassium 4.3 creatinine 1.24 January 19: White count 6.4 hemoglobin 10 potassium 4.4 creatinine 1.33 White count 9.2 hemoglobin 9.5 platelets 273 sodium 132 potassium 4 creatinine 1.5 to Previous testing: Creatinine 1.06 on September 2019 Assessment and plan: -Bilateral foot , pressure ulcer wounds especially in the plantar aspect deep in a patient with known peripheral artery disease and peripheral neuropathy, underlying Charcot foot: Slow to respond. IV ceftriaxone, IV daptomycin. No surgical intervention per orthopedics deferred to vascular. Per vascular documented IV antibiotics with possible amputation depending on clinical course -COPD in a current smoker Albuterol when necessary -Chronic nicotine dependence cigarette smoker Nicotine patch 7 -Acute kidney injury likely ATN from underlying infection: Slow to respond Follow labs. IV fluids. IV daptomycin. 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 Klonopin 0.5 mg 3 times a day Celexa 20 mg a day -Painful Peripheral neuropathy secondary to history of alcoholism -Charcot foot Daptomycin. IV ceftriaxone. No surgical intervention currently per vascular . Follow with ID.
[2022-01-21] MEDS: traZODone HCL 50 MG TAB PO SCH (20:38)
[2022-01-21] MEDS: DAPTOmycin 500 MG in SODIUM CHLORIDE 0.9% 50 ML IVPB SCH (21:40)
[2022-01-22] MEDS: HYDROcodone/APAP 10-325MG 1 EACH TAB PO PRN ×4 (02:50→20:25)
[2022-01-22] MEDS: SODIUM CHLORIDE 0.9% 1,000 ML IV SCH ×3 (04:57→17:09)
[2022-01-22] MEDS: NICOTINE 21MG/24HR PATCH TRANSDERM SCH (08:32)
[2022-01-22] MEDS: lisinopriL 20 MG TAB PO SCH (08:33)
[2022-01-22] MEDS: clonazePAM 0.5 MG TAB PO SCH ×3 (08:33→20:26)
[2022-01-22] MEDS: GABAPENTIN 400 MG CAP PO SCH ×3 (08:33→20:25)
[2022-01-22] MEDS: TAMSULOSIN 0.4 MG CAP.ER.24H PO SCH (08:33)
[2022-01-22] MEDS: CITALOPRAM HYDROBROMIDE 20 MG TAB PO SCH (08:33)
[2022-01-22] MEDS: cloNIDine HCL 0.1 MG TAB PO SCH ×2 (08:33→16:43)
[2022-01-22] MEDS: FAMOTIDINE 20 MG TAB PO SCH ×2 (08:33→20:25)
[2022-01-22] MEDS: DILTIAZEM CD 180 MG CAP.ER.24H PO SCH (08:34)
--- NOTE | 2022-01-22 18:25 | P.PN ---
Progress Note - Text Progress Note Date: 01/22/22 Chief Complaint: Foot abscess This is a pleasant 66-year-old patient of Dr. Mustafa. Chronic stable medical conditions include COPD, peripheral artery disease, GERD, hypertension, bipolar disorder., peripheral Neuropathy from alcoholism. heavy drinking up to 2018. Patient continues to smoke. Patient's brother Sotero is a legal guardian. Patient has chronic foot wounds for which she follows at the wound care center. Patient does wear special shoes. 5 days ago on Thursday patient seen by Dr. Akbar in the wound care center. Patient stated his wounds looked okay then. Since then his feet have become puffy. And more prominent on the plantar surface on both the feet. There has been pus drainage especially from the right foot. Pain is present. No fever no chills. Decided to come in. Patient has bilateral Charcot foot. Pressure ulcers. January 19: Dr. Costa called me stating that patient will need orthopedic consultation for surgical intervention. This is being done. Continue IV ceftriaxone. January 20: Patient is seen by orthopedics Dr. Escalante. They've deferred any surgical intervention to vascular surgery. Patient earlier seen by Dr. Melendez and the present time continue with IV antibiotics. Depending on clinical course amputation may be an option down the road. Discussed with the patient. January 22: Tolerating diet. IV antibiotics. When changes. Discussed with the patient. Active Medications Hydrocodone Bitart/Acetaminophen (Hydrocodone/Apap 10-325mg 1 Each Tab) 1 each PO QID PRN PRN Reason: Breakthrough Pain Last Admin: 01/22/22 14:56 Dose: 1 each Documented by: Calcium Carbonate/Glycine (Calcium Carbonate 500 Mg Chewable) 1,000 mg PO Q4HR PRN PRN Reason: Dyspepsia Citalopram Hydrobromide (Citalopram Hydrobromide 20 Mg Tab) 20 mg PO DAILY [facility] Last Admin: 01/22/22 08:33 Dose: 20 mg Documented by: Clonazepam (Clonazepam 0.5 Mg Tab) 0.5 mg PO TID [facility] Last Admin: 01/22/22 16:43 Dose: 0.5 mg Documented by: Clonidine (Clonidine Hcl 0.1 Mg Tab) 0.1 mg PO TID [facility] Last Admin: 01/22/22 16:43 Dose: 0.1 mg Documented by: Diltiazem HCl (Diltiazem Cd 180 Mg Cap.Er.24h) 180 mg PO DAILY [facility] Last Admin: 01/22/22 08:34 Dose: 180 mg Documented by: Famotidine (Famotidine 20 Mg Tab) 20 mg PO BID [facility] Last Admin: 01/22/22 08:33 Dose: 20 mg Documented by: Gabapentin (Gabapentin 400 Mg Cap) 800 mg PO TID [facility] Last Admin: 01/22/22 16:43 Dose: 800 mg Documented by: Sodium Chloride (Saline 0.9%) 1,000 mls @ 130 mls/hr IV .Q7H42M [facility] Last Admin: 01/22/22 17:09 Dose: Not Given Documented by: Daptomycin 500 mg/ Sodium (Chloride) 50 mls @ 100 mls/hr IVPB HS [facility] Last Admin: 01/21/22 21:40 Dose: 100 mls/hr Documented by: Ceftriaxone Sodium 2 gm/ (Sodium Chloride) 50 mls @ 100 mls/hr IVPB BID [facility] Last Admin: 01/22/22 08:33 Dose: 100 mls/hr Documented by: Lactulose (Lactulose 20 Gm/30 Ml Cup) 20 gm PO DAILY PRN PRN Reason: Constipation Lisinopril (Lisinopril 20 Mg Tab) 20 mg PO DAILY [facility] Last Admin: 01/22/22 08:33 Dose: 20 mg Documented by: Lorazepam (Lorazepam 0.5 Mg Tab) 0.5 mg PO Q6HR PRN PRN Reason: Anxiety Last Admin: 01/20/22 22:38 Dose: 0.5 mg Documented by: Naloxone HCl (Naloxone 0.4 Mg/Ml 1 Ml Vial) 0.2 mg IV Q2M PRN PRN Reason: Opioid Reversal Nicotine (Nicotine 21mg/24hr Patch) 1 patch TRANSDERM DAILY [facility] Last Admin: 01/22/22 08:32 Dose: 1 patch Documented by: Ondansetron HCl (Ondansetron 4 Mg/2 Ml Vial) 4 mg IVP Q8HR PRN PRN Reason: Nausea And Vomiting Last Admin: 01/21/22 20:34 Dose: 4 mg Documented by: Tamsulosin HCl (Tamsulosin 0.4 Mg Cap.Er.24h) 0.4 mg PO DAILY [facility] Last Admin: 01/22/22 08:33 Dose: 0.4 mg Documented by: Trazodone HCl (Trazodone Hcl 50 Mg Tab) 150 mg PO HS [facility] Last Admin: 01/21/22 20:38 Dose: 150 mg Documented by: Zolpidem Tartrate (Zolpidem 5 Mg Tab) 5 mg PO HS PRN PRN Reason: Insomnia Last Admin: 01/20/22 22:38 Dose: 5 mg Documented by: Past medical history to include: COPD, PAD, foot wounds, GERD, hypertension, bipolar disorder, peripheral neuropathy from alcoholism Social history: Stopped drinking heavy alcohol in 2018. Long-standing smoker currently down to about 56 cigarettes a day. Brother Sotero legal guardian Family history: Diabetes, vascular disorder, stroke Physical examination: VITAL SIGNS: 97.9, 67, 16, 170/87, 97% room air GENERAL: sitting up in bed awake, comfortable EYES: Pupils equal. Conjunctiva normal. HEENT: External appearance of nose and ears normal, oral cavity grossly normal. NECK: JVD not raised; masses not palpable. HEART: First and second heart sounds are normal; no edema. LUNGS: Respiratory rate normal; decreased breath sounds. ABDOMEN: Soft, nontender, liver spleen not palpable, no masses palpable. PSYCH: Alert and oriented x3; mood and affect normal. MUSCULOSKELETAL:No Clubbing/cyanosis;muscles-grossly intact. Amputation of the fourth and fifth toe on the right to the metatarsal head. Fluctuation with open wound on the plantar surface of both feet especially the right foot. Some surrounding area of redness. NEUROLOGICAL: Cranial nerves grossly intact; no facial asymmetry, power grossly intact. Decreased sensation distally. INVESTIGATIONS, reviewed in the clinical context: January 22: CRP 1.5 January 20: Potassium 4.3 creatinine 1.24 January 19: White count 6.4 hemoglobin 10 potassium 4.4 creatinine 1.33 White count 9.2 hemoglobin 9.5 platelets 273 sodium 132 potassium 4 creatinine 1.5 to Previous testing: Creatinine 1.06 on September 2019 Assessment and plan: -Bilateral foot , pressure ulcer wounds especially in the plantar aspect deep in a patient with known peripheral artery disease and peripheral neuropathy, underlying Charcot foot: Slow to respond. IV ceftriaxone, IV daptomycin. No surgical intervention per orthopedics deferred to vascular. Per vascular documented IV antibiotics with possible amputation depending on clinical course -COPD in a current smoker Albuterol when necessary -Chronic nicotine dependence cigarette smoker Nicotine patch 7 -Acute kidney injury likely ATN from underlying infection: Slow to respond Follow labs. IV fluids. IV daptomycin. - chronic kidney disease stage II from nephrosclerosis Patient's creatinine was 1.06 in September 2019 -GERD Pepcid 20 mg twice a day -Essential Hypertension: Uncontrolled Increase Catapres to 0.2 mg 3 times a day. Lisinopril -Bipolar disorder Trazodone 150 mg daily at bedtime. Klonopin 0.5 mg 3 times a day Celexa 20 mg a day -Painful Peripheral neuropathy secondary to history of alcoholism -Charcot foot IV Daptomycin. IV ceftriaxone. Increase Catapres 0.2 mg 3 times a day. Discussed with the patient. Discussed with ID. Patient need a PICC line.
[2022-01-22] MEDS: cloNIDine HCL 0.2 MG TAB PO SCH (20:25)
[2022-01-22] MEDS: traZODone HCL 50 MG TAB PO SCH (20:26)
[2022-01-22] MEDS: DAPTOmycin 500 MG in SODIUM CHLORIDE 0.9% 50 ML IVPB SCH ×2 (20:26→21:19)
[2022-01-23] MEDS: SODIUM CHLORIDE 0.9% 1,000 ML IV SCH (00:57)
[2022-01-23] MEDS: HYDROcodone/APAP 10-325MG 1 EACH TAB PO PRN ×4 (03:04→20:30)
[2022-01-23 05:47] LABS: Basophils % (A) 1 %; Eosinophils # (A) 0.1 k/uL (0-0.7); Eosinophils % (A) 2 %; HCT 27.9 % (39.0-53.0); HGB 9.2 gm/dL (13.0-17.5); Lymphocytes # (A) 0.9 k/uL (1.0-4.8); Lymphocytes % (A) 13 %; MCH 31.6 pg (25.0-35.0); MCHC 32.8 g/dL (31.0-37.0); MCV 96.5 fL (80.0-100.0); Mean Platelet Volume 7.5; Monocytes # (A) 0.3 k/uL (0-1.0); Monocytes % (A) 5 %; Neutrophils # (A) 5.1 k/uL (1.3-7.7); Neutrophils % (A) 79 %; Platelet Count 217 k/uL (150-450); RDW 12.6 % (11.5-15.5); WBC 6.5 k/uL (3.8-10.6)
[2022-01-23 06:04] LABS: African American GFR (CKD) 68 (>60 ml/min/1.73 sqM); Anion Gap 2 mmol/L; Blood Urea Nitrogen 16 mg/dL (9-20); Calcium 8.2 mg/dL (8.4-10.2); Carbon Dioxide 30 mmol/L (22-30); Chloride 105 mmol/L (98-107); Glucose 101 mg/dL (74-99); Non-African American GFR(CKD) 59 (>60 ml/min/1.73 sqM); Potassium 4.1 mmol/L (3.5-5.1); Sodium 137 mmol/L (137-145)
--- NOTE | 2022-01-23 08:09 | P.PN ---
Subjective Progress Note Date: 01/21/22 Principal diagnosis: Diabetic foot infection patient is a 66-year-old male with a past medical he significant for diabetes mellitus in this patient did have a nonhealing wound on the plantar aspect of the both feet presented to hospital with increasing swelling redness concern for underlying infection. On today's evaluation that is 01/21/2022, patient denies having any fever or any chills patient is breathing comfortably still complaining of pain to bilateral feet area, denies any chest pain shortness of breath or cough no abdominal pain no diarrhea Objective - Vital Signs Vital signs: Vital Signs Temp 98 F 01/21/22 11:27 Pulse 58 L 01/21/22 11:27 Resp 14 01/21/22 11:27 BP 116/83 01/21/22 11:27 Pulse Ox 97 01/21/22 11:27 Intake & Output 01/20/22 01/21/22 01/21/22 18:59 06:59 18:59 Intake Total 1660 Output Total 800 Balance 860 Weight 86.183 kg Intake: Intake, IV Titration 1660 Amount DAPTOmycin 500 mg In 50 Sodium Chloride 0.9% 50 ml @ 100 mls/hr IVPB HS [facility] Rx#:[id number] Sodium Chloride 0.9% 1, 1560 000 ml @ 130 mls/hr IV . Q7H42M [facility] Rx#:[id number] cefTRIAXone 2 gm In 50 Sodium Chloride 0.9% 50 ml @ 100 mls/hr IVPB BID [facility] Rx#:[id number] Output: Urine 800 Other: Voiding Method Urinal # Voids 3 - Exam GENERAL DESCRIPTION: An elderly male lying in bed in no distress RESPIRATORY SYSTEM: Unlabored breathing , decreased breath sounds at bases HEART: S1 S2 regular rate and rhythm , ABDOMEN: Soft , no tenderness EXTREMITIES: Bilateral feet wound is currently dressed no drainage on the dressing - Labs CBC & Chem 7: 01/23/22 05:09 01/23/22 05:09 Labs: Abnormal Lab Results - Last 24 Hours (Table) 01/21/22 Range/Units 06:56 C-Reactive Protein 1.50 H (0.00-0.80) mg/dL Microbiology - Last 24 Hours (Table) 01/18/22 10:12 Blood Culture - Preliminary Blood No Growth after 72 hours 01/18/22 10:12 Blood Culture - Preliminary Blood No Growth after 72 hours Assessment and Plan (1) Cellulitis of both feet Current Visit: Yes Status: Acute Code(s): L03.115 - CELLULITIS OF RIGHT LOWER LIMB; L03.116 - CELLULITIS OF LEFT LOWER LIMB SNOMED Code(s): 955764941 Plan: 1patient with bilateral diabetic foot plantar ulceration and concern for secondary cellulitis patient involving the right foot and possible deep infection such as osteomyelitis L excluded, superficial culture be positive for MRSA VRE and Citrobacter. 2patient benefit from surgical debridement and deep culture for his vascular surgery has been consulted. 3patient tocontinue the daptomycin and Rocephin while waiting for the cultures to finalize Time with Patient: Less than 30
--- NOTE | 2022-01-23 08:12 | P.PN ---
Subjective Progress Note Date: 01/22/22 Principal diagnosis: Diabetic foot infection patient is a 66-year-old male with a past medical he significant for diabetes mellitus in this patient did have a nonhealing wound on the plantar aspect of the both feet presented to hospital with increasing swelling redness concern for underlying infection. On today's evaluation that is 01/22/2022, patient remains to be afebrile, patient is breathing comfortably on room air and denies any chest pain or cough the patient pain to bilateral feet area has slightly decreased intensity, the patient denies abdominal pain and no diarrhea Objective - Vital Signs Vital signs: Vital Signs Temp 97.9 F 01/22/22 10:59 Pulse 67 01/22/22 10:59 Resp 16 01/22/22 10:59 BP 170/87 01/22/22 10:59 Pulse Ox 97 01/22/22 10:59 Intake & Output 01/21/22 01/22/22 01/22/22 18:59 06:59 18:59 Intake Total 1800 Balance 1800 Intake: Intake, IV Titration 1560 Amount Sodium Chloride 0.9% 1, 1560 000 ml @ 130 mls/hr IV . Q7H42M [facility] Rx#:[id number] Oral 240 Other: Voiding Method Urinal Urinal Urinal # Voids 2 1 # Bowel Movements 1 1 - Exam GENERAL DESCRIPTION: An elderly male lying in bed in no distress RESPIRATORY SYSTEM: Unlabored breathing , decreased breath sounds at bases HEART: S1 S2 regular rate and rhythm , ABDOMEN: Soft , no tenderness EXTREMITIES: Bilateral feet wound is currently dressed no drainage on the dressing - Labs CBC & Chem 7: 01/23/22 05:09 01/23/22 05:09 Labs: Microbiology - Last 24 Hours (Table) 01/18/22 10:12 Blood Culture - Preliminary Blood No Growth after 96 hours 01/21/22 17:30 Gram Stain - Preliminary Foot - Right Wound Culture - Preliminary 01/21/22 17:30 Anaerobic Culture - Preliminary Foot - Right 01/18/22 10:12 Blood Culture - Preliminary Blood No Growth after 72 hours Assessment and Plan (1) Cellulitis of both feet Current Visit: Yes Status: Acute Code(s): L03.115 - CELLULITIS OF RIGHT LOWER LIMB; L03.116 - CELLULITIS OF LEFT LOWER LIMB SNOMED Code(s): 154856127 Plan: 1patient with bilateral diabetic foot plantar ulceration and concern for secondary cellulitis patient involving the right foot and possible deep infect ion such as osteomyelitis L excluded, superficial culture be positive for MRSA VRE and Citrobacter. 2no surgical depression both per orthopedics and vascular surgery 3patient tocontinue the daptomycin and Rocephin while waiting for the cultures to finalize to determine his discharge antibiotics Time with Patient: Less than 30
[2022-01-23] MEDS: lisinopriL 20 MG TAB PO SCH ×2 (08:18→20:30)
[2022-01-23] MEDS: GABAPENTIN 400 MG CAP PO SCH ×2 (08:18→15:41)
[2022-01-23] MEDS: CITALOPRAM HYDROBROMIDE 20 MG TAB PO SCH (08:18)
[2022-01-23] MEDS: NICOTINE 21MG/24HR PATCH TRANSDERM SCH (08:18)
[2022-01-23] MEDS: DILTIAZEM CD 180 MG CAP.ER.24H PO SCH (08:18)
[2022-01-23] MEDS: TAMSULOSIN 0.4 MG CAP.ER.24H PO SCH (08:18)
[2022-01-23] MEDS: FAMOTIDINE 20 MG TAB PO SCH ×2 (08:18→20:30)
[2022-01-23] MEDS: cloNIDine HCL 0.2 MG TAB PO SCH ×2 (08:18→15:41)
[2022-01-23] MEDS: clonazePAM 0.5 MG TAB PO SCH ×2 (08:18→15:41)
[2022-01-23] MEDS ORDERED: LIDOCAINE 1% INJ 10MG/ML (5 ML VIAL-PF) SQ ONE ×2 (11:13→11:14)
--- NOTE | 2022-01-23 15:55 | IR ---
PICC LINE PLACEMENT: HISTORY: Infection requiring long-term antibiotic therapy PROCEDURE: Ultrasound and fluoroscopic guidance of PICC line placement. COMPLICATIONS: None ANESTHESIA: 1. 1% Lidocaine locally. FINDINGS/TECHNIQUE: The procedure was explained to the patient. The risks, complications, benefits and alternatives were discussed and any questions were answered. Informed consent was obtained. The patient was placed supine on the fluoroscopic table and prepped and draped in the usual sterile fash ion. Utilizing a 21 gauge needle and sonographic and fluoroscopic guidance, access in the left basi lic vein was achieved and there is placement of a 0.018 guidewire. The vein is patent. A 4-F sheath was placed over the guidewire. The guidewire and dilator were removed and a 4-F. PICC line was plac ed through the sheath with the tip at the level of the SVC. The sheath was removed, the catheter was flushed and sutured into position. The patient was stable throughout the procedure and remained sta ble upon discharge from the Department of Radiology. The vein puncture was patent under ultrasound. A mtz scale image was obtained to document patency of the vein punctured. All elements of the maximal barrier technique were utilized. FLUOROSCOPY TIME: 0.2 minutes and one image submitted IMPRESSION: Successful PICC line placement under ultrasound and fluoroscopic guidance.
--- NOTE | 2022-01-23 16:08 | P.PN ---
Progress Note - Text Progress Note Date: 01/23/22 Chief Complaint: Foot abscess This is a pleasant 66-year-old patient of Dr. Mustafa. Chronic stable medical conditions include COPD, peripheral artery disease, GERD, hypertension, bipolar disorder., peripheral Neuropathy from alcoholism. heavy drinking up to 2018. Patient continues to smoke. Patient's brother Sotero is a legal guardian. Patient has chronic foot wounds for which she follows at the wound care center. Patient does wear special shoes. 5 days ago on Thursday patient seen by Dr. Akbar in the wound care center. Patient stated his wounds looked okay then. Since then his feet have become puffy. And more prominent on the plantar surface on both the feet. There has been pus drainage especially from the right foot. Pain is present. No fever no chills. Decided to come in. Patient has bilateral Charcot foot. Pressure ulcers. January 19: Dr. Costa called me stating that patient will need orthopedic consultation for surgical intervention. This is being done. Continue IV ceftriaxone. January 20: Patient is seen by orthopedics Dr. Escalante. They've deferred any surgical intervention to vascular surgery. Patient earlier seen by Dr. Melendez and the present time continue with IV antibiotics. Depending on clinical course amputation may be an option down the road. Discussed with the patient. January 22: Tolerating diet. IV antibiotics. When changes. Discussed with the patient. January 23: Patient received a PICC line today. Decreased drainage from the wounds. Pain control. Oral intake fair. For outpatient antibiotic. Blood pressure still uncontrolled. Catapres was increased to 0.2 mg 3 times a day yesterday. Will increase Prinivil to 20 mg twice a day starting tonight. Decrease Neurontin to 600 mg 3 times a day in the setting of chronic kidney disease to see that helps with nausea. Active Medications Hydrocodone Bitart/Acetaminophen (Hydrocodone/Apap 10-325mg 1 Each Tab) 1 each PO QID PRN PRN Reason: Breakthrough Pain Last Admin: 01/23/22 14:39 Dose: 1 each Documented by: Calcium Carbonate/Glycine (Calcium Carbonate 500 Mg Chewable) 1,000 mg PO Q4HR PRN PRN Reason: Dyspepsia Citalopram Hydrobromide (Citalopram Hydrobromide 20 Mg Tab) 20 mg PO DAILY [facility] Last Admin: 01/23/22 08:18 Dose: 20 mg Documented by: Clonazepam (Clonazepam 0.5 Mg Tab) 0.5 mg PO TID [facility] Last Admin: 01/23/22 15:41 Dose: 0.5 mg Documented by: Clonidine (Clonidine Hcl 0.2 Mg Tab) 0.2 mg PO TID [facility] Last Admin: 01/23/22 15:41 Dose: 0.2 mg Documented by: Diltiazem HCl (Diltiazem Cd 180 Mg Cap.Er.24h) 180 mg PO DAILY [facility] Last Admin: 01/23/22 08:18 Dose: 180 mg Documented by: Famotidine (Famotidine 20 Mg Tab) 20 mg PO BID [facility] Last Admin: 01/23/22 08:18 Dose: 20 mg Documented by: Gabapentin (Gabapentin 400 Mg Cap) 800 mg PO TID [facility] Last Admin: 01/23/22 15:41 Dose: 800 mg Documented by: Sodium Chloride (Saline 0.9%) 1,000 mls @ 20 mls/hr IV .Q24H [facility] Last Admin: 01/23/22 00:57 Dose: 20 mls/hr Documented by: Daptomycin 500 mg/ Sodium (Chloride) 50 mls @ 100 mls/hr IVPB HS [facility] Last Admin: 01/22/22 20:26 Dose: 100 mls/hr Documented by: Ceftriaxone Sodium 2 gm/ (Sodium Chloride) 50 mls @ 100 mls/hr IVPB BID [facility] Last Admin: 01/23/22 08:17 Dose: 100 mls/hr Documented by: Lactulose (Lactulose 20 Gm/30 Ml Cup) 20 gm PO DAILY PRN PRN Reason: Constipation Lisinopril (Lisinopril 20 Mg Tab) 20 mg PO DAILY [facility] Last Admin: 01/23/22 08:18 Dose: 20 mg Documented by: Lorazepam (Lorazepam 0.5 Mg Tab) 0.5 mg PO Q6HR PRN PRN Reason: Anxiety Last Admin: 01/20/22 22:38 Dose: 0.5 mg Documented by: Naloxone HCl (Naloxone 0.4 Mg/Ml 1 Ml Vial) 0.2 mg IV Q2M PRN PRN Reason: Opioid Reversal Nicotine (Nicotine 21mg/24hr Patch) 1 patch TRANSDERM DAILY [facility] Last Admin: 01/23/22 08:18 Dose: 1 patch Documented by: Ondansetron HCl (Ondansetron 4 Mg/2 Ml Vial) 4 mg IVP Q8HR PRN PRN Reason: Nausea And Vomiting Last Admin: 01/21/22 20:34 Dose: 4 mg Documented by: Tamsulosin HCl (Tamsulosin 0.4 Mg Cap.Er.24h) 0.4 mg PO DAILY [facility] Last Admin: 01/23/22 08:18 Dose: 0.4 mg Documented by: Trazodone HCl (Trazodone Hcl 50 Mg Tab) 150 mg PO HS [facility] Last Admin: 01/22/22 20:26 Dose: 150 mg Documented by: Zolpidem Tartrate (Zolpidem 5 Mg Tab) 5 mg PO HS PRN PRN Reason: Insomnia Last Admin: 01/20/22 22:38 Dose: 5 mg Documented by: Past medical history to include: COPD, PAD, foot wounds, GERD, hypertension, bipolar disorder, peripheral neuropathy from alcoholism Social history: Stopped drinking heavy alcohol in 2018. Long-standing smoker currently down to about 56 cigarettes a day. Brother Sotero legal guardian Family history: Diabetes, vascular disorder, stroke Physical examination: VITAL SIGNS: 98.2, 50, 20, 170/79, 100% room air GENERAL: sitting up in bed awake, comfortable EYES: Pupils equal. Conjunctiva normal. HEENT: External appearance of nose and ears normal, oral cavity grossly normal. NECK: JVD not raised; masses not palpable. HEART: First and second heart sounds are normal; no edema. LUNGS: Respiratory rate normal; decreased breath sounds. ABDOMEN: Soft, nontender, liver spleen not palpable, no masses palpable. PSYCH: Alert and oriented x3; mood and affect normal. MUSCULOSKELETAL:No Clubbing/cyanosis;muscles-grossly intact. Amputation of the fourth and fifth toe on the right to the metatarsal head. Fluctuation with open wound on the plantar surface of both feet especially the right foot. Some surrounding area of redness. NEUROLOGICAL: Cranial nerves grossly intact; no facial asymmetry, power grossly intact. Decreased sensation distally. INVESTIGATIONS, reviewed in the clinical context: January 22: CRP 1.5 January 20: Potassium 4.3 creatinine 1.24 January 19: White count 6.4 hemoglobin 10 potassium 4.4 creatinine 1.33 White count 9.2 hemoglobin 9.5 platelets 273 sodium 132 potassium 4 creatinine 1.5 to Previous testing: Creatinine 1.06 on September 2019 Assessment and plan: -Bilateral foot , pressure ulcer wounds especially in the plantar aspect deep in a patient with known peripheral artery disease and peripheral neuropathy, underlying Charcot foot: Slow to respond. IV ceftriaxone, IV daptomycin. No surgical intervention per orthopedics deferred to vascular. Per vascular documented IV antibiotics with possible amputation depending on clinical course -COPD in a current smoker Albuterol when necessary -Chronic nicotine dependence cigarette smoker Nicotine patch 7 -Acute kidney injury likely ATN from underlying infection: Follow labs. IV fluids. - chronic kidney disease stage II from nephrosclerosis Patient's creatinine was 1.06 in September 2019 -GERD Pepcid 20 mg twice a day -Essential Hypertension: Uncontrolled Catapres to 0.2 mg 3 times a day. Increase Lisinopril 20 mg twice a day -Bipolar disorder Trazodone 150 mg daily at bedtime. Klonopin 0.5 mg 3 times a day Celexa 20 mg a day -Painful Peripheral neuropathy secondary to history of alcoholism -Charcot foot IV Daptomycin. IV ceftriaxone. Increase Catapres 0.2 mg 3 times a day. Discussed with the patient. Discussed with ID. Patient need a PICC line. Will try decreased dose of Neurontin to see does contribution to patient nausea.
[2022-01-23] MEDS: DAPTOmycin 500 MG in SODIUM CHLORIDE 0.9% 50 ML IVPB SCH (21:48)
[2022-01-24] MEDS: cloNIDine HCL 0.2 MG TAB PO SCH ×3 (00:31→15:11)
[2022-01-24] MEDS: traZODone HCL 50 MG TAB PO SCH (00:31)
[2022-01-24] MEDS: clonazePAM 0.5 MG TAB PO SCH ×3 (00:32→15:11)
[2022-01-24] MEDS: HYDROcodone/APAP 10-325MG 1 EACH TAB PO PRN ×2 (03:45→10:53)
[2022-01-24 05:40] VITALS: TEMP 98.4
--- NOTE | 2022-01-24 08:23 | P.PN ---
Subjective Progress Note Date: 01/23/22 Principal diagnosis: Diabetic foot infection patient is a 66-year-old male with a past medical he significant for diabetes mellitus in this patient did have a nonhealing wound on the plantar aspect of the both feet presented to hospital with increasing swelling redness concern for underlying infection. On today's evaluation that is 01/23/2022, patient is afebrile, patient is breathing comfortably on room air , the pt denies any chest pain or cough the patient pain to bilateral feet area has decreased intensity, the patient denies abdominal pain and no diarrhea Objective - Vital Signs Vital signs: Vital Signs Temp 98.2 F 01/23/22 13:00 Pulse 50 L 01/23/22 13:00 Resp 20 01/23/22 13:00 BP 170/79 01/23/22 13:00 Pulse Ox 100 01/23/22 13:00 Intake & Output 01/22/22 01/23/22 01/23/22 18:59 06:59 18:59 Intake Total 260 1212 900 Output Total 1500 Balance 260 -288 900 Intake: Intake, IV Titration 260 390 Amount DAPTOmycin 500 mg In 50 Sodium Chloride 0.9% 50 ml @ 100 mls/hr IVPB HS [facility] Rx#:[id number] Sodium Chloride 0.9% 1, 260 240 000 ml @ 20 mls/hr IV . Q24H [facility] Rx#:[id number] cefTRIAXone 2 gm In 100 Sodium Chloride 0.9% 50 ml @ 100 mls/hr IVPB BID [facility] Rx#:[id number] Oral 822 900 Output: Urine 1500 Other: Voiding Method Urinal Urinal # Bowel Movements 1 - Exam GENERAL DESCRIPTION: An elderly male lying in bed in no distress RESPIRATORY SYSTEM: Unlabored breathing , decreased breath sounds at bases HEART: S1 S2 regular rate and rhythm , ABDOMEN: Soft , no tenderness EXTREMITIES: Bilateral feet wound With no significant slough tissue surrounding swelling or redness has decreased minimal drainage on the dressing - Labs CBC & Chem 7: 01/23/22 05:09 01/23/22 05:09 Labs: Abnormal Lab Results - Last 24 Hours (Table) 01/23/22 01/23/22 Range/Units 05:09 05:09 RBC 2.90 L (4.30-5.90) m/uL Hgb 9.2 L (13.0-17.5) gm/dL Hct 27.9 L (39.0-53.0) % Lymphocytes # 0.9 L (1.0-4.8) k/uL Creatinine 1.27 H (0.66-1.25) mg/dL Glucose 101 H (74-99) mg/dL Calcium 8.2 L (8.4-10.2) mg/dL Microbiology - Last 24 Hours (Table) 01/18/22 10:12 Blood Culture - Preliminary Blood No Growth after 120 hours 01/18/22 10:12 Blood Culture - Preliminary Blood No Growth after 120 hours 01/21/22 17:30 Gram Stain - Preliminary Foot - Right Wound Culture - Preliminary Group D Enterococcus Assessment and Plan (1) Cellulitis of both feet Current Visit: Yes Status: Acute Code(s): L03.115 - CELLULITIS OF RIGHT LOWER LIMB; L03.116 - CELLULITIS OF LEFT LOWER LIMB SNOMED Code(s): 072584097 Plan: 1patient with bilateral diabetic foot plantar ulceration and concern for secondary cellulitis patient involving the right foot and possible deep infection such as osteomyelitis not excluded, superficial culture be positive for MRSA VRE and Citrobacter. 2no surgical depression both per orthopedics and vascular surgery 3Patient seem to have shown clinical improvement and plan on continuing with the daptomycin and Rocephin x4 weeks on discharge for which a PICC line is placed Time with Patient: Less than 30
[2022-01-24] MEDS: GABAPENTIN 300 MG CAP PO SCH ×3 (09:16→15:11)
[2022-01-24] MEDS: CITALOPRAM HYDROBROMIDE 20 MG TAB PO SCH (09:18)
[2022-01-24] MEDS: lisinopriL 20 MG TAB PO SCH (09:18)
[2022-01-24] MEDS: FAMOTIDINE 20 MG TAB PO SCH (09:19)
[2022-01-24] MEDS: NICOTINE 21MG/24HR PATCH TRANSDERM SCH (09:19)
[2022-01-24] MEDS: DILTIAZEM CD 180 MG CAP.ER.24H PO SCH (09:19)
[2022-01-24] MEDS: TAMSULOSIN 0.4 MG CAP.ER.24H PO SCH (09:19)
[2022-01-24] MEDS: SODIUM CHLORIDE 0.9% 1,000 ML IV SCH (11:11)
[2022-01-24 12:59] VITALS: BP 165/82; PULSE 65; RESP 14
--- NOTE | 2022-01-24 14:38 | P.PN ---
Subjective Progress Note Date: 01/24/22 Principal diagnosis: Diabetic foot infection patient is a 66-year-old male with a past medical he significant for diabetes mellitus in this patient did have a nonhealing wound on the plantar aspect of the both feet presented to hospital with increasing swelling redness concern for underlying infection. On today's evaluation that is 01/24/2022, patient remains to be afebrile, patient is breathing comfortably on room air , the patient denies chest pain shortness of breath or cough the patient pain to bilateral feet area is currently controlled, the patient denies abdominal pain and no diarrhea Objective - Vital Signs Vital signs: Vital Signs Temp 98.4 F 01/24/22 05:00 Pulse 65 01/24/22 11:59 Resp 14 01/24/22 11:59 BP 165/82 01/24/22 11:59 Pulse Ox 96 01/24/22 11:59 Intake & Output 01/23/22 01/24/22 01/24/22 18:59 06:59 18:59 Intake Total 950 590 Balance 950 590 Intake: Intake, IV Titration 50 Amount cefTRIAXone 2 gm In 50 Sodium Chloride 0.9% 50 ml @ 100 mls/hr IVPB BID [facility] Rx#:[id number] Oral 900 590 Other: Voiding Method Urinal Urinal # Voids 4 4 # Bowel Movements 1 - Exam GENERAL DESCRIPTION: An elderly male lying in bed in no distress RESPIRATORY SYSTEM: Unlabored breathing , decreased breath sounds at bases HEART: S1 S2 regular rate and rhythm , ABDOMEN: Soft , no tenderness EXTREMITIES: Bilateral feet wound With no significant slough tissue surrounding swelling or redness has decreased minimal drainage on the dressing - Labs CBC & Chem 7: 01/23/22 05:09 01/23/22 05:09 Labs: Microbiology - Last 24 Hours (Table) 01/18/22 10:12 Blood Culture - Final Blood No Growth after 144 hours 01/18/22 10:12 Blood Culture - Final Blood No Growth after 144 hours 01/21/22 17:30 Gram Stain - Preliminary Foot - Right Wound Culture - Preliminary Enterococcus faecalis VRE Presumptive MRSA Gram Neg Bacilli 01/21/22 17:30 Anaerobic Culture - Preliminary Foot - Right Assessment and Plan (1) Cellulitis of both feet Current Visit: Yes Status: Acute Code(s): L03.115 - CELLULITIS OF RIGHT LOWER LIMB; L03.116 - CELLULITIS OF LEFT LOWER LIMB SNOMED Code(s): 198594520 Plan: 1patient with bilateral diabetic foot plantar ulceration and concern for secondary cellulitis patient involving the right foot and possible deep infection such as osteomyelitis not excluded, superficial culture be positive for MRSA VRE and Citrobacter. 2no surgical depression both per orthopedics and vascular surgery 3Patient has shown overall clinical improvement and plan is to finish therapy with the daptomycin and Rocephin x4 weeks on discharge with weekly monitoring of CBC and CRP and sed rate and close outpatient follow-up Time with Patient: Less than 30
--- NOTE | 2022-01-24 15:05 | P.DS ---
Providers Date of admission: 01/18/22 11:55 Expected date of discharge: 01/24/22 Attending physician: Damien Bruce Consults: 01/18/22 11:46 Consult Physician Routine Consulting Provider: Fredrick Deal Consult Reason/Comments: osteomyelitis, cellulitis Do you want consulting provider notified?: Yes 01/19/22 11:58 Consult Physician Routine Consulting Provider: Tristin Corona Consult Reason/Comments: bilateral food wounds/abcess Do you want consulting provider notified?: Yes Primary care physician: [facility] Course: Chief Complaint: Foot abscess This is a pleasant 66-year-old patient of Dr. Mustafa. Chronic stable medical conditions include COPD, peripheral artery disease, GERD, hypertension, bipolar disorder., peripheral Neuropathy from alcoholism. heavy drinking up to 2018. Patient continues to smoke. Patient's brother Sotero is a legal guardian. Patient has chronic foot wounds for which she follows at the wound care center. Patient does wear special shoes. 5 days ago on Thursday patient seen by Dr. Akbar in the wound care center. Patient stated his wounds looked okay then. Since then his feet have become puffy. And more prominent on the plantar surface on both the feet. There has been pus drainage especially from the right foot. Pain is present. No fever no chills. Decided to come in. Patient has bilateral Charcot foot. Pressure ulcers. January 19: Dr. Costa called me stating that patient will need orthopedic consultation for surgical intervention. This is being done. Continue IV ceftriaxone. January 20: Patient is seen by orthopedics Dr. Escalante. They've deferred any surgical intervention to vascular surgery. Patient earlier seen by Dr. Melendez and the present time continue with IV antibiotics. Depending on clinical course amputation may be an option down the road. Discussed with the patient. January 22: Tolerating diet. IV antibiotics. When changes. Discussed with the patient. January 23: Patient received a PICC line today. Decreased drainage from the wounds. Pain control. Oral intake fair. For outpatient antibiotic. Blood pressure still uncontrolled. Catapres was increased to 0.2 mg 3 times a day yesterday. Will increase Prinivil to 20 mg twice a day starting tonight. Decrease Neurontin to 600 mg 3 times a day in the setting of chronic kidney disease to see that helps with nausea. January 24: Discussed with ID. Patient get 4 more weeks of ceftriaxone and daptomycin. Weekly labs. Nausea much improved with cutting back the dose of Neurontin to 600 mg 3 times a day. Discussed with patient. Patient will follow-up with vascular and ID outpatient. Discussion and discharge planning more than 35 minutes Past medical history to include: COPD, PAD, foot wounds, GERD, hypertension, bipolar disorder, peripheral neuropathy from alcoholism Social history: Stopped drinking heavy alcohol in 2018. Long-standing smoker currently down to about 56 cigarettes a day. Brother Sotero legal guardian Family history: Diabetes, vascular disorder, stroke Physical examination: VITAL SIGNS: 98.4, 91, 65, 14, 165/82, 96% room air GENERAL: Reclining in bed, comfortable EYES: Pupils equal. Conjunctiva normal. HEENT: External appearance of nose and ears normal, oral cavity grossly normal. NECK: JVD not raised; masses not palpable. HEART: First and second heart sounds are normal; no edema. LUNGS: Respiratory rate normal; decreased breath sounds. ABDOMEN: Soft, nontender, liver spleen not palpable, no masses palpable. PSYCH: Alert and oriented x3; mood and affect normal. MUSCULOSKELETAL:No Clubbing/cyanosis;muscles-grossly intact. Amputation of the fourth and fifth toe on the right to the metatarsal head. Fluctuation with open wound on the plantar surface of both feet especially the right foot. Some surrounding area of redness. NEUROLOGICAL: Cranial nerves grossly intact; no facial asymmetry, power grossly intact. Decreased sensation distally. INVESTIGATIONS, reviewed in the clinical context: January 23: White count 6.5 hemoglobin 9.2 potassium 4.1 creatinine 1.27 Wound culture: Enterococcus faecalis VRE/presumptive MRSA/gram-negative bacilli January 22: CRP 1.5 January 20: Potassium 4.3 creatinine 1.24 January 19: White count 6.4 hemoglobin 10 potassium 4.4 creatinine 1.33 White count 9.2 hemoglobin 9.5 platelets 273 sodium 132 potassium 4 creatinine 1.5 to Previous testing: Creatinine 1.06 on September 2019 Assessment and plan: -Bilateral foot , pressure ulcer wounds especially in the plantar aspect deep in a patient with known peripheral artery disease and peripheral neuropathy, underlying Charcot foot: Cultures positive for multiple organisms. IV ceftriaxone, IV daptomycin. No surgical intervention per orthopedics deferred to vascular. Per vascular continue IV antibiotics with possible amputation depending on clinical course. For 4 more weeks of current antibiotics. -COPD in a current smoker Albuterol when necessary -Chronic nicotine dependence cigarette smoker Nicotine patch 7 -Acute kidney injury likely ATN from underlying infection: Follow labs. IV fluids. - chronic kidney disease stage II from nephrosclerosis Patient's creatinine was 1.06 in September 2019 -GERD Pepcid 20 mg twice a day -Essential Hypertension: Catapres to 0.2 mg 3 times a day. Lisinopril 20 mg twice a day -Bipolar disorder Trazodone 150 mg daily at bedtime. Klonopin 0.5 mg 3 times a day Celexa 20 mg a day -Painful Peripheral neuropathy secondary to history of alcoholism: Controlled Neurontin 600 mg 3 times a day. Dose was reduced -Charcot foot Disposition: Home Plan - Discharge Summary New Discharge Prescriptions: New Nicotine 21Mg/24Hr Patch [Habitrol] 1 patch TRANSDERM DAILY #14 patch lisinopriL [Zestril] 20 mg PO BID #60 tab Gabapentin [Neurontin] 600 mg PO TID #90 cap Continue Tamsulosin HCl [Flomax] 0.4 mg PO DAILY cloNIDine HCL [Catapres] 0.1 mg PO TID Citalopram Hydrobromide [CeleXA] 20 mg PO DAILY Famotidine [Pepcid] 20 mg PO BID #1 tablet HYDROcodone/APAP 10-325MG [[place] 10-325] 1 tab PO QID #12 tab Diltiazem HCl [Cartia Xt] 180 mg PO DAILY clonazePAM [KlonoPIN] 0.5 mg PO TID traZODone HCL 150 mg PO HS Discontinued lisinopriL 20 mg PO DAILY Gabapentin 800 mg PO TID Cefuroxime Axetil [Ceftin] 500 mg PO BID Discharge Medication List Tamsulosin HCl [Flomax] 0.4 mg PO DAILY 03/26/17 [History] cloNIDine HCL [Catapres] 0.1 mg PO TID 10/05/17 [History] Citalopram Hydrobromide [CeleXA] 20 mg PO DAILY 09/14/19 [History] Famotidine [Pepcid] 20 mg PO BID #1 tablet 09/20/19 [Rx] HYDROcodone/APAP 10-325MG [[place] 10-325] 1 tab PO QID #12 tab 09/20/19 [Rx] Diltiazem HCl [Cartia Xt] 180 mg PO DAILY 01/18/22 [History] clonazePAM [KlonoPIN] 0.5 mg PO TID 01/18/22 [History] traZODone HCL 150 mg PO HS 01/18/22 [History] Gabapentin [Neurontin] 600 mg PO TID #90 cap 01/24/22 [Rx] Nicotine 21Mg/24Hr Patch [Habitrol] 1 patch TRANSDERM DAILY #14 patch 01/24/22 [Rx] lisinopriL [Zestril] 20 mg PO BID #60 tab 01/24/22 [Rx] Follow up Appointment(s)/Referral(s): Remington Mustafa MD [Primary Care Provider] - 02/24/22 3:45 pm (The office will call if there is a cancelation before then.) Michael Costa DO [Doctor of Osteopathic Medicine] - 1 Week (Please call the office and make follow up appointment on thursday the office is closed today.) [facility]Infusion [NON-STAFF] - As Needed (MARIA R Kat (P: [phone]) - Covered at 100% home/office/teach&train) [facility] [NON-STAFF] - 01/28/22 9:15 am Fredrick Deal MD [STAFF PHYSICIAN] - 1 Week [facility] Visiting Nurse, [NON-STAFF] - 1 Week Activity/Diet/Wound Care/Special Instructions: Antibiotics per Dr. Deal
[2022-01-24] MEDS: DAPTOmycin 500 MG in SODIUM CHLORIDE 0.9% 50 ML IVPB SCH (15:06)
--- NOTE | 2022-01-30 10:07 | CDI ---
Documentation Clarification Form Date: 01/30/2022 09:08:00 AM From: Charmaine Waters RN, CCDS Admit Date: 01/18/2022 11:55:00 AM Patient Name: Valentin Dale Visit Number: [id number] Discharge Date: 01/24/2022 04:29:00 PM ATTENTION: The Clinical Documentation Specialists (CDI) and [facility] Coding Staff appreciate your assistance in clarifying documentation. Please respond to the clarification below the line at the bottom and electronically sign. The CDI & [facility] Coding staff will review the response and follow-up if needed. Please note: Queries are made part of the Legal Health Record. If you have any questions, please contact the author of this message via ITS. Dr. Fredrick Deal Diabetes mellitus and history of diabetic foot infection is documented the ID consult on 01/20/22 and subsequent progress notes, which may lack sufficient clinical evidence/support in the medical record. Additional clarification is requested. ID consult on 01/20/22 has bilateral diabetic foot plantar ulceration and concern for secondary cellulitis. History/Risk Factors: COPD, GERD, Hyperlipidemia, Hypertension Vascular Disorder, peripheral vascular disease, PAD, Osteomyelitis left foot 2006, ETOH abuse Amputation of the fourth and fifth toes on the right, nonhealing wounds on the right foot Clinical Indicators: 66-year-old male with pressure ulcer of left foot stage III, pressure ulcer of right forefoot stage III List of home meds not showing treatment for diabetes Mellitus. Treatment: Daptomycin 500 MG IVBP HS 01/18-01/24 Rocephin 2 GM IVBP Q 12 HRS 01/19-01/24 Please clarify if Diabetes Mellitus is a valid diagnosis? [ x] No, Diabetes Mellitus is ruled out [ ] Diabetes Mellitus and bilateral diabetes foot ulcers is present as evidence by (additional clinical support): [ ] Other (please specify diagnosis) [ ] Unable to determine (Template Last Revised: November 2020) MTDD
== END 2022-01-24 16:29 | disposition home health service (06) | DRG 592 ==
LOC: EC 09:23 → 5NMEDONC 11:55
PROVIDERS: ADMIT Hospitalist; ATTEND Hospitalist
PROC: B548ZZA Ultrasonography of Superior Vena Cava, Guidance (ICD-10-PCS; 2022-01-23)
PROC: B5181ZA Fluoroscopy of Superior Vena Cava using Low Osmolar Contrast, Guidance (ICD-10-PCS; 2022-01-23)
PROC: 02HV33Z Insertion of Infusion Device into Superior Vena Cava, Percutaneous Approach (ICD-10-PCS; principal; 2022-01-23 12:10)
DX: L89.893 Pressure ulcer of other site, stage 3 (principal); N17.0 Acute kidney failure with tubular necrosis; L02.612 Cutaneous abscess of left foot; L03.115 Cellulitis of right lower limb; L03.116 Cellulitis of left lower limb; L97.515 Non-pressure chronic ulcer of other part of right foot with muscle involvement without evidence of necrosis; L97.525 Non-pressure chronic ulcer of other part of left foot with muscle involvement without evidence of necrosis; M86.672 Other chronic osteomyelitis, left ankle and foot; Z16.21 Resistance to vancomycin; M00.872 Arthritis due to other bacteria, left ankle and foot; M00.871 Arthritis due to other bacteria, right ankle and foot; B95.62 Methicillin resistant Staphylococcus aureus infection as the cause of diseases classified elsewhere; D64.9 Anemia, unspecified; B96.89 Other specified bacterial agents as the cause of diseases classified elsewhere; E78.5 Hyperlipidemia, unspecified; F10.20 Alcohol dependence, uncomplicated; I65.23 Occlusion and stenosis of bilateral carotid arteries; F17.210 Nicotine dependence, cigarettes, uncomplicated; F31.9 Bipolar disorder, unspecified; F40.240 Claustrophobia; F90.9 Attention-deficit hyperactivity disorder, unspecified type; G47.00 Insomnia, unspecified; I12.9 Hypertensive chronic kidney disease with stage 1 through stage 4 chronic kidney disease, or unspecified chronic kidney disease; J44.9 Chronic obstructive pulmonary disease, unspecified; I73.9 Peripheral vascular disease, unspecified; M14.672 Charcot's joint, left ankle and foot; M14.671 Charcot's joint, right ankle and foot; G62.9 Polyneuropathy, unspecified; B95.2 Enterococcus as the cause of diseases classified elsewhere; R29.6 Repeated falls; K21.9 Gastro-esophageal reflux disease without esophagitis; K59.00 Constipation, unspecified; M19.90 Unspecified osteoarthritis, unspecified site; N18.2 Chronic kidney disease, stage 2 (mild); Z79.2 Long term (current) use of antibiotics; Z79.899 Other long term (current) drug therapy; Z82.3 Family history of stroke; Z82.49 Family history of ischemic heart disease and other diseases of the circulatory system; Z83.3 Family history of diabetes mellitus; Z86.73 Personal history of transient ischemic attack (TIA), and cerebral infarction without residual deficits; Z87.11 Personal history of peptic ulcer disease; Z86.14 Personal history of Methicillin resistant Staphylococcus aureus infection; Z88.0 Allergy status to penicillin; Z91.81 History of falling
CPT/HCPCS: 36415; 36573; 71046; 80048; 80053; 83605; 84145; 85025; 85652; 86140; 87040; 87070; 87075; 87077; 87186; 87205; 93005; 93880; 96361; 96365; 96366; 96375; 96376; 99285

== ENCOUNTER 2023-06-23 07:15 | Emergency (ER) | payer MEDICARE, OTHER ==
[2023-06-23] MEDS ORDERED: SULFAMETHOX-TMP 800-160MG 1 EACH TAB PO STA (07:42)
[2023-06-23 07:43] VITALS: BP 178/73; PULSE 69; RESP 20; TEMP 98.6
--- NOTE | 2023-06-23 07:48 | ED ---
General Adult HPI - General Chief complaint: Recheck/Abnormal Lab/Rx Stated complaint: left foot pain Time Seen by Provider: 06/23/23 07:24 Source: patient, RN notes reviewed, old records reviewed Mode of arrival: ambulatory Limitations: no limitations - History of Present Illness Initial comments: 68 yo female presenting with swelling and drainage from the left foot. Patient has chronic wound, he does follow with the wound center. He has home care nursing who changes his bandage. He denies measured fever. He states he's had some increased drainage from this chronic wound. - Related Data Home Medications Medication Instructions Recorded Confirmed Tamsulosin HCl [Flomax] 0.4 mg PO DAILY 03/26/17 01/18/22 Citalopram Hydrobromide [CeleXA] 20 mg PO DAILY 09/14/19 01/18/22 clonazePAM [KlonoPIN] 0.5 mg PO TID 01/18/22 01/18/22 dilTIAZem HCL [Cartia Xt] 180 mg PO DAILY 01/18/22 01/18/22 traZODone HCL 150 mg PO HS 01/18/22 01/18/22 Previous Rx's Medication Instructions Recorded Famotidine [Pepcid] 20 mg PO BID #1 tablet 09/20/19 HYDROcodone/APAP 10-325MG [[place] 1 tab PO QID #12 tab 09/20/19 10-325] DAPTOmycin [Cubicin] 500 mg IVPB HS 01/24/22 Gabapentin [Neurontin] 600 mg PO TID #90 cap 01/24/22 Nicotine 21Mg/24Hr Patch [Habitrol] 1 patch TRANSDERM DAILY #14 patch 01/24/22 cefTRIAXone [Rocephin] 2 gm IVPB BID each 01/24/22 cloNIDine HCL [Catapres] 0.2 mg PO TID #90 tab 01/24/22 lisinopriL [Zestril] 20 mg PO BID #60 tab 01/24/22 Sulfamethox-Tmp 800-160Mg [Bactrim 1 tab PO Q12HR #28 tab 06/23/23 DS 800-160 mg] Allergies Allergy/AdvReac Type Severity Reaction Status Date / Time Penicillins Allergy Dyspnea, Verified 06/23/23 07:31 HIVES, THROAT SWELLING Review of Systems ROS Statement: Those systems with pertinent positive or pertinent negative responses have been documented in the HPI. ROS Other: All systems not noted in ROS Statement are negative. 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 History of Any Multi-Drug Resistant Organisms: MRSA, VRE Date of last positivie culture/infection: 01/21/22 MRSA & VRE MDRO Source:: RIGHT Foot Past Surgical History: Orthopedic Surgery Additional Past Surgical History / Comment(s): Amputation of the fourth and fifth toes on the right through the metatarsal heads, multiple I&D to nonhealing wounds on the R foot, repair of perforated ucler of stomach, EGD/colonoscopy, PICC lines in and out. Past Anesthesia/Blood Transfusion Reactions: Motion Sickness Additional Past Anesthesia/Blood Transfusion Reaction / Comment(s): claustrophobia Past Psychological History: ADD/ADHD, Anxiety, Depression Smoking Status: Current every day smoker Past Alcohol Use History: None Reported Past Drug Use History: Marijuana - Past Family History Mother Family Medical History: CVA/TIA, Diabetes Mellitus, Vascular Disorder Additional Family Medical History / Comment(s): emotional problems. age 64 of cva Father Family Medical History: Hypertension Additional Family Medical History / Comment(s): age 38 from mva General Exam Limitations: no limitations General appearance: alert, in no apparent distress Head exam: Present: atraumatic, normocephalic Eye exam: Present: normal appearance, PERRL ENT exam: Present: normal exam Neck exam: Present: normal inspection. Absent: tenderness, meningismus Respiratory exam: Present: normal lung sounds bilaterally. Absent: respiratory distress, wheezes Cardiovascular Exam: Present: regular rate, normal rhythm GI/Abdominal exam: Present: soft. Absent: distended, guarding Extremities exam: Present: other (Chronic wound to the left foot with some surrounding erythema approximately 2 cm circumferential around a 3 cm ulceratio n) Neurological exam: Present: alert, oriented X3 Psychiatric exam: Present: normal affect, normal mood Skin exam: Present: warm, dry Course Vital Signs 06/23/23 07:28 Temperature 98.6 F Pulse Rate 69 Respiratory 20 Rate Blood Pressure 178/73 O2 Sat by Pulse 98 Oximetry Medical Decision Making - Medical Decision Making Was pt. sent in by a medical professional or institution (FABIOLA Steward, [employer]ATE W[employer]ER, urgent care, hospital, or alf...) When possible be specific @ -No Did you speak to anyone other than the patient for history (EMS, parent, family, police, friend...)? What history was obtained from this source @ -No Did you review nursing and triage notes (agree or disagree)? Why? @ -I reviewed and agree with nursing and triage notes Were old charts reviewed (outside hosp., previous admission, EMS record, old EKG, old radiological studies, urgent care reports/EKG's, alf records)? Report findings @ -No old charts were reviewed Differential Diagnosis (chest pain, altered mental status, abdominal pain women, abdominal pain men, vaginal bleeding, weakness, fever, dyspnea, syncope, headache, dizziness, GI bleed, back pain, seizure, CVA, palpatations, mental health, musculoskeletal)? @Osteomyelitis, cellulitis, nonhealing wound EKG interpreted by me (3pts min.). @ -As above X-rays interpreted by me (1pt min.). @ -None done CT interpreted by me (1pt min.). @ -None done U/S interpreted by me (1pt. min.). @ -None done What testing was considered but not performed or refused? (CT, X-rays, U/S, labs)? Why? @ -None What meds were considered but not given or refused? Why? @ -None Did you discuss the management of the patient with other professionals (professionals i.e. FABIOLA Steward, PLATE WASHER, lab, RT, psych nurse, manager social responsibility, sheet metal helper, teacher, air support control officer, watch case polisher)? Give summary @ -No Was smoking cessation discussed for >3mins.? @ -No Was critical care preformed (if so, how long)? @ -No Were there social determinants of health that impacted care today? How? (Homelessness, low income, unemployed, alcoholism, drug addiction, transportation, low edu. Level, literacy, decrease access to med. care, custodial, rehab)? @ -No Was there de-escalation of care discussed even if they declined (Discuss DNR or withdrawal of care, Hospice)? DNR status @ -No What co-morbidities impacted this encounter? (DM, HTN, Smoking, COPD, CAD, Cancer, CVA, ARF, Chemo, Hep., AIDS, mental health diagnosis, sleep apnea, morbid obesity)? @ -Peripheral neuropathy, chronic wound Was patient admitted / discharged? Hospital course, mention meds given and route, prescriptions, significant lab abnormalities, going to OR and other pertinent info. @ -[60-year-old male with increased drainage and cellulitis around a nonhealing ulceration on the left foot which is on the medial plantar aspect of the foot there is some surrounding cellulitis. Patient will be covered with oral antibiotics given strict return parameters to return to the emergency department if swelling and drainage does not improve. He will follow with wound care as scheduled in one week and he has home care nursing scheduled for tomorrow. Undiagnosed new problem with uncertain prognosis? @ -No Drug Therapy requiring intensive monitoring for toxicity (Heparin, Nitro, Insulin, Cardizem)? @ -No Were any procedures done? @ -No Diagnosis/symptom? @ -Acute on chronic soft tissue infection of the left foot Acute, or Chronic, or Acute on Chronic? @ -Acute on chronic Uncomplicated (without systemic symptoms) or Complicated (systemic symptoms)? @ -default Side effects of treatment? @ -No Exacerbation, Progression, or Severe Exacerbation? @ -No Poses a threat to life or bodily function? How? (Chest pain, [place], [place], pneumonia, PE, COPD, DKA, ARF, appy, cholecystitis, CVA, Diverticulitis, Homicidal, Suicidal, threat to staff... and all critical care pts) @Low risk at this time Disposition Clinical Impression: Cellulitis, Foot ulcer Disposition: HOME SELF-CARE Condition: Fair Instructions (If sedation given, give patient instructions): Diabetic Foot Ulcers (ED), Cellulitis (ED) Prescriptions: Sulfamethox-Tmp 800-160Mg [Bactrim DS 800-160 mg] 1 tab PO Q12HR #28 tab Is patient prescribed a controlled substance at d/c from ED?: No Referrals: Remington Mustafa MD [Primary Care Provider] - 1-2 days Time of Disposition: 07:47
== END 2023-06-23 09:00 | disposition home or self-care (01) ==
LOC: EC 07:15
DX: L97.529 Non-pressure chronic ulcer of other part of left foot with unspecified severity (principal); L03.116 Cellulitis of left lower limb; I10 Essential (primary) hypertension; J44.9 Chronic obstructive pulmonary disease, unspecified; F32.A Depression, unspecified; F41.9 Anxiety disorder, unspecified; F17.200 Nicotine dependence, unspecified, uncomplicated; F12.90 Cannabis use, unspecified, uncomplicated; Z88.0 Allergy status to penicillin; Z79.899 Other long term (current) drug therapy
CPT/HCPCS: 99283

== ENCOUNTER 2023-07-17 11:01 | Inpatient (IN) | payer MEDICARE, OTHER ==
[2023-07-17 11:05] LABS: Glucose,Whole Blood 157 mg/dL (70-110)
[2023-07-17] MEDS ORDERED: SODIUM CHLORIDE 0.9% 1,000 ML IV ONE ×2 (11:11→13:06)
[2023-07-17 11:35] LABS: Basophils % (A) 0 %; Eosinophils # (A) 0.1 k/uL (0-0.7); Eosinophils % (A) 0 %; HCT 40.2 % (39.0-53.0); HGB 14.4 gm/dL (13.0-17.5); Lymphocytes # (A) 0.5 k/uL (1.0-4.8); Lymphocytes % (A) 3 %; MCH 32.8 pg (25.0-35.0); MCHC 35.8 g/dL (31.0-37.0); MCV 91.5 fL (80.0-100.0); Mean Platelet Volume 7.3; Monocytes # (A) 0.8 k/uL (0-1.0); Monocytes % (A) 4 %; Neutrophils # (A) 17.9 k/uL (1.3-7.7); Neutrophils % (A) 92 %; Platelet Count 175 k/uL (150-450); RBC 4.39 m/uL (4.30-5.90); RDW 12.1 % (11.5-15.5); WBC 19.4 k/uL (3.8-10.6)
[2023-07-17 11:46] LABS: ALT 25 U/L (4-49); AST 71 U/L (17-59); African American GFR (CKD) 42 (>60 ml/min/1.73 sqM); Albumin 5.1 g/dL (3.5-5.0); Alkaline Phosphatase 88 U/L (38-126); Anion Gap 22 mmol/L; Blood Urea Nitrogen 17 mg/dL (9-20); Calcium 10.4 mg/dL (8.4-10.2); Carbon Dioxide 14 mmol/L (22-30); Chloride 97 mmol/L (98-107); Glucose 146 mg/dL (74-99); Non-African American GFR(CKD) 37 (>60 ml/min/1.73 sqM); Potassium 4.4 mmol/L (3.5-5.1); Sodium 133 mmol/L (137-145); Total Bilirubin 1.2 mg/dL (0.2-1.3); Total Protein 8.9 g/dL (6.3-8.2)
[2023-07-17 11:52] LABS: INR 1.1 (<1.2); Partial Thromboplastin Time 25.5 sec (22.0-30.0)
--- NOTE | 2023-07-17 11:56 | CT ---
EXAMINATION TYPE: CT brain wo con DATE OF EXAM: 07/17/2023 COMPARISON: 10/05/1999 HISTORY: Altered mental status CT DLP: 4334 mGycm Automated exposure control for dose reduction was used. FINDINGS: Mild generalized degenerative change. Hypoattenuation within. No midline shift or mass effect. No acu te hemorrhage. Calvarium intact. Craniocervical junction and a period IMPRESSION: MILD GENERALIZED DEGENERATIVE CHANGE.
--- NOTE | 2023-07-17 12:04 | XR ---
EXAMINATION TYPE: XR chest 2V DATE OF EXAM: 07/17/2023 11:56 AM COMPARISON: Chest radiographs from 01/18/2022 TECHNIQUE: XR chest 2V Frontal and lateral views of the chest. CLINICAL INDICATION:Male, 68 years old with history of altered mental status; FINDINGS: Lungs/Pleura: There is no evidence of pleural effusion, focal consolidation, or pneumothorax. Pulmonary vascularity: Unremarkable. Heart/mediastinum: Cardiomediastinal silhouette is prominent in size. Musculoskeletal: No acute osseous pathology. Left clavicle fixation hardware. IMPRESSION: No acute cardiopulmonary disease/process.
--- NOTE | 2023-07-17 12:09 | XR ---
EXAMINATION TYPE: XR foot limited LT DATE OF EXAM: 07/17/2023 COMPARISON: Bilateral foot radiograph 01/18/2022 HISTORY: Osteomyelitis TECHNIQUE: AP and lateral views of the left foot were obtained. FINDINGS: Previous partial resection distal aspect of the fifth metatarsal. Free floating fifth toe r edemonstrated. Mild soft tissue swelling of the medial mid left foot. Similar appearance of osseous e rosion involving the second TMT joint lateral aspect of the first TMT joint from prior examination. P es planus. Dorsal mid foot osteophytosis. No acute fracture or dislocation. IMPRESSION: 1. No evidence for acute fracture. 2. Mild soft tissue swelling of the left medial mid foot with similar subchondral erosive changes of the lateral aspect of the first TMT joint and also the second TMT joint. No obvious increased erosion s. Findings may relate to chronic osteomyelitis.
--- NOTE | 2023-07-17 12:23 | ED ---
General Adult HPI - General Chief complaint: Altered Mental Status Stated complaint: AMS Time Seen by Provider: 07/17/23 11:01 Source: patient, EMS, RN notes reviewed, old records reviewed Mode of arrival: EMS Limitations: no limitations - History of Present Illness Initial comments: This a 51-year-old male who is brought into the emergency department by EMS no one came with the patient so EMS was 180 about history. According to a family member living with a gentleman or checked in on the gentleman stated that the patient was significantly altered. Patient normally is alert and oriented 4 and today is extremely confused and the family member did not know why. Family members not sure he takes his meds were not he did indicate that the dehydration did have a wound to the bottom of his left foot. - Related Data Home Medications Medication Instructions Recorded Confirmed Citalopram Hydrobromide [CeleXA] 20 mg PO DAILY 09/14/19 07/17/23 clonazePAM [KlonoPIN] 0.5 mg PO TID PRN 01/18/22 07/17/23 traZODone HCL 150 mg PO HS 01/18/22 07/17/23 Gabapentin 800 mg PO TID 07/17/23 07/17/23 HYDROcodone/APAP 10-325MG [[place] 1 tab PO Q6H PRN 07/17/23 07/17/23 10-325] lisinopriL [Zestril] 10 mg PO BID 07/17/23 07/17/23 Previous Rx's Medication Instructions Recorded Famotidine [Pepcid] 20 mg PO BID #1 tablet 09/20/19 cloNIDine HCL [Catapres] 0.2 mg PO TID #90 tab 01/24/22 Allergies Allergy/AdvReac Type Severity Reaction Status Date / Time Penicillins Allergy Dyspnea, Verified 07/17/23 11:07 HIVES, THROAT SWELLING Review of Systems ROS Statement: Those systems with pertinent positive or pertinent negative responses have been documented in the HPI. ROS Other: All systems not noted in ROS Statement are negative. Past Medical History Past Medical History: COPD, GERD/Reflux, Hyperlipidemia, Hypertension, Pneumonia, Skin Disorder, Vascular Disorder Additional Past Medical History / Comment(s): ETOH abuse, DT's, pancreatitis, chronic pain, PVD, PAD, neuropathy bilateral legs/feet and hands, past nonhealing wounds bilateral feet-past wound care center, 2007 osteomylitis L foot, chronic pain bilateral feet/legs and upper back-pt states he had thoracic vertebrae injury in past, peptic ulcer with surgery, psoriasis, sinus problems, past L clavicular fracture, acute renal failure, electrolyte disturbance. History of Any Multi-Drug Resistant Organisms: MRSA, VRE Date of last positivie culture/infection: 01/21/22 MRSA & VRE MDRO Source:: RIGHT Foot Past Surgical History: Orthopedic Surgery Additional Past Surgical History / Comment(s): Amputation of the fourth and fifth toes on the right through the metatarsal heads, multiple I&D to nonhealing wounds on the R foot, repair of perforated ucler of stomach, EGD/colonoscopy, PICC lines in and out. Past Anesthesia/Blood Transfusion Reactions: Motion Sickness Additional Past Anesthesia/Blood Transfusion Reaction / Comment(s): claustrophobia Past Psychological History: ADD/ADHD, Anxiety, Depression Smoking Status: Current every day smoker Past Alcohol Use History: Unable to Obtain Past Drug Use History: Unable to Obtain - Past Family History Mother Family Medical History: CVA/TIA, Diabetes Mellitus, Vascular Disorder Additional Family Medical History / Comment(s): emotional problems. age 64 of cva Father Family Medical History: Hypertension Additional Family Medical History / Comment(s): age 38 from mva General Exam - General Exam Comments Initial Comments: GENERAL: Patient is well-developed and well-nourished. Patient is nontoxic and well- hydrated and is in no acute distress. ENT: Neck is soft and supple. No significant lymphadenopathy is noted. Oropharynx is clear. Moist mucous membranes. Neck has full range of motion without eliciting any pain. EYES: The sclera were anicteric and conjunctiva were pink and moist. Extraocular movements were intact and pupils were equal round and reactive to light. Eyelids were unremarkable. PULMONARY: Unlabored respirations. Good breath sounds bilaterally. No audible rales rhonchi or wheezing was noted. CARDIOVASCULAR: There is a regular rate and rhythm without any murmurs gallops or rubs. ABDOMEN: Soft and nontender with normal bowel sounds. SKIN: Patient has 2 wounds on the left foot both her open nasal look grossly infected NEUROLOGIC: Patient is alert and oriented 0. Cranial nerves II through XII are grossly intact. Motor and sensory are also intact. Normal speech, volume and content. Symmetrical smile. MUSCULOSKELETAL: Normal extremities with adequate strength and full range of motion. No lower extremity swelling or edema. No calf tenderness. LYMPHATICS: No significant lymphadenopathy is noted PSYCHIATRIC: Unable to assess Limitations: no limitations Course Vital Signs 07/17/23 07/17/23 07/17/23 11:03 11:21 12:25 Temperature 97.1 F L Pulse Rate 80 81 Respiratory 18 22 Rate Blood Pressure 184/106 198/115 O2 Sat by Pulse 96 Oximetry 07/17/23 07/17/23 07/17/23 13:28 14:28 14:59 Temperature Pulse Rate 89 98 96 Respiratory 18 18 18 Rate Blood Pressure 184/94 192/106 188/103 O2 Sat by Pulse 96 99 98 Oximetry Medical Decision Making - Medical Decision Making EKG is interpreted by myself. EKG shows atrial fibrillation at 91 bpm QRS is 92 QT interval 350 QTC is 399. Patient's EKG shows an occasional PVC Was pt. sent in by a medical professional or institution (, PA, ELECTRO OPTICS ENGINEER, urgent care, hospital, or fci...) When possible be specific @ -No Did you speak to anyone other than the patient for history (EMS, parent, family, police, friend...)? What history was obtained from this source @ -Musculoskeletal history because patient was unable to Did you review nursing and triage notes (agree or disagree)? Why? @ -I reviewed and agree with nursing and triage notes Were old charts reviewed (outside hosp., previous admission, EMS record, old EKG, old radiological studies, urgent care reports/EKG's, fci records)? Report findings @ -I reviewed prior charts in prior labwork on this patient Differential Diagnosis (chest pain, altered mental status, abdominal pain women, abdominal pain men, vaginal bleeding, weakness, fever, dyspnea, syncope, headache, dizziness, GI bleed, back pain, seizure, CVA, palpatations, mental health, musculoskeletal)? @ -Differential Altered Mental Status: Hypoglycemia, DKA, hypercapnia, ETOH, overdose, CO poisoning, trauma, myxedema coma, HTN encephalopathy, infection, encephalitis, psychosis, intercranial hemorrhage, hepatic encephalopathy, meningitis, CVA, this is not meant to be an all-inclusive list EKG interpreted by me (3pts min.). @ -As above X-rays interpreted by me (1pt min.). @ -Chest x-ray shows no acute abnormality. X-ray of the foot shows probably chronic osteomyelitis CT interpreted by me (1pt min.). @ -None done U/S interpreted by me (1pt. min.). @ -None done What testing was considered but not performed or refused? (CT, X-rays, U/S, labs)? Why? @ -None What meds were considered but not given or refused? Why? @ -None Did you discuss the management of the patient with other professionals (professionals i.e. , PA, ELECTRO OPTICS ENGINEER, lab, RT, psych nurse, social services aide, manager budget, teacher, animal services officer, therapeutic case manager)? Give summary @ -I spoke with Dr. Bruce and he agreed to admit the patient Was smoking cessation discussed for >3mins.? @ -No Was critical care preformed (if so, how long)? @ -35 minutes Were there social determinants of health that impacted care today? How? (Homelessness, low income, unemployed, alcoholism, drug addiction, transportation, low edu. Level, literacy, decrease access to med. care, fpc, rehab)? @ -No Was there de-escalation of care discussed even if they declined (Discuss DNR or withdrawal of care, Hospice)? DNR status @ -No What co-morbidities impacted this encounter? (DM, HTN, Smoking, COPD, CAD, Cancer, CVA, ARF, Chemo, Hep., AIDS, mental health diagnosis, sleep apnea, morbid obesity)? @ -None Was patient admitted / discharged? Hospital course, mention meds given and route, prescriptions, significant lab abnormalities, going to OR and other pert inent info. @ -Patient continued to be altered throughout his ED course. She has a high white count with signs of a cellulitis of his left foot I will start the patient on vancomycin. I spoke with Dr. Bruce agreed to admit the patient admitted the patient I consulted Dr. Castleed Dr. Ramos and continue the vancomycin on the floor. Patient was diagnosed with osteomyelitis at 1245. Because of the patient's elevated troponin I district patient on heparin and consult cardiol ogy. Undiagnosed new problem with uncertain prognosis? @ -No Drug Therapy requiring intensive monitoring for toxicity (Heparin, Nitro, Insulin, Cardizem)? @ -No Were any procedures done? @ -No Diagnosis/symptom? @ -Osteomyelitis foot Acute, or Chronic, or Acute on Chronic? @ -Acute Uncomplicated (without systemic symptoms) or Complicated (systemic symptoms)? @ -Complicated Side effects of treatment? @ -No Exacerbation, Progression, or Severe Exacerbation? @ -No Poses a threat to life or bodily function? How? (Chest pain, USA, CA, pneumonia, PE, COPD, DKA, ARF, appy, cholecystitis, CVA, Diverticulitis, Homicidal, Suicidal, threat to staff... and all critical care pts) @ -Yes this could lead to sepsis and end organ dysfunction Diagnosis/symptom? @ -Non-STEMI Acute, or Chronic, or Acute on Chronic? @ -Acute Uncomplicated (without systemic symptoms) or Complicated (systemic symptoms)? @ -Complicated Side effects of treatment? @ -none Exacerbation, Progression, or Severe Exacerbation] @ -no Poses a threat to life or bodily function? @ -Yes is complete end organ dysfunction After patient was admitted his heart rate went up to 220 beats a minute we gave the patient adenosine on 2 different occasions but after he slowed his heart rate down he went right back into the over 200 beats a minute rate. EKG was done EKG was interpreted by myself shows atrial for ablation with rapid ventricular response at 208 bpm QRS is 175 Q-T intervals 193 QTC is 294. I spoke with Dr. Bruce about the case after this occurred since the patient was already admitted. - Lab Data Result diagrams: 07/17/23 11:14 07/17/23 11:14 Lab Results 07/17/23 07/17/23 07/17/23 Range/Units 11:04 11:14 11:14 WBC 19.4 H (3.8-10.6) k/uL RBC 4.39 (4.30-5.90) m/uL Hgb 14.4 (13.0-17.5) gm/dL Hct 40.2 (39.0-53.0) % MCV 91.5 (80.0-100.0) fL MCH 32.8 (25.0-35.0) pg MCHC 35.8 (31.0-37.0) g/dL RDW 12.1 (11.5-15.5) % Plt Count 175 (150-450) k/uL MPV 7.3 Neutrophils % 92 % Lymphocytes % 3 % Monocytes % 4 % Eosinophils % 0 % Basophils % 0 % Neutrophils # 17.9 H (1.3-7.7) k/uL Lymphocytes # 0.5 L (1.0-4.8) k/uL Monocytes # 0.8 (0-1.0) k/uL Eosinophils # 0.1 (0-0.7) k/uL Basophils # 0.0 (0-0.2) k/uL PT 12.0 (10.0-12.5) sec INR 1.1 (<1.2) APTT 25.5 (22.0-30.0) sec Sodium (137-145) mmol/L Potassium (3.5-5.1) mmol/L Chloride (98-107) mmol/L Carbon Dioxide (22-30) mmol/L Anion Gap mmol/L BUN (9-20) mg/dL Creatinine (0.66-1.25) mg/dL Est GFR (CKD-EPI)AfAm (>60 ml/min/1.73 sqM) Est GFR (CKD-EPI)NonAf (>60 ml/min/1.73 sqM) Glucose (74-99) mg/dL POC Glucose (mg/dL) 157 H (70-110) mg/dL POC Glu Biology Instructor ID Andrea, Judd Plasma Lactic Acid Josse (0.7-2.0) mmol/L Calcium (8.4-10.2) mg/dL Total Bilirubin (0.2-1.3) mg/dL AST (17-59) U/L ALT (4-49) U/L Alkaline Phosphatase (38-126) U/L Troponin I (0.000-0.034) ng/mL Total Protein (6.3-8.2) g/dL Albumin (3.5-5.0) g/dL Urine Color Urine Appearance (Clear) Urine pH (5.0-8.0) Ur Specific [place] (1.001-1.035) Urine Protein (Negative) Urine Glucose (UA) (Negative) Urine Ketones (Negative) Urine Blood (Negative) Urine Nitrite (Negative) Urine Bilirubin (Negative) Urine Urobilinogen (<2.0) mg/dL Ur Leukocyte Esterase (Negative) Urine RBC (0-5) /hpf Urine WBC (0-5) /hpf Ur Squamous Epith Cells (0-4) /hpf Urine Bacteria (None) /hpf Hyaline Casts (0-2) /lpf Urine Mucus (None) /hpf Urine Opiates Screen (NotDetected) Ur Oxycodone Screen (NotDetected) Urine Methadone Screen (NotDetected) Ur Propoxyphene Screen (NotDetected) Ur Barbiturates Screen (NotDetected) U Tricyclic Antidepress (NotDetected) Ur Phencyclidine Scrn (NotDetected) Ur Amphetamines Screen (NotDetected) U Methamphetamines Scrn (NotDetected) U Benzodiazepines Scrn (NotDetected) Urine Cocaine Screen (NotDetected) U Marijuana (THC) Screen (NotDetected) 07/17/23 07/17/23 07/17/23 Range/Units 11:14 11:14 11:14 WBC (3.8-10.6) k/uL RBC (4.30-5.90) m/uL Hgb (13.0-17.5) gm/dL Hct (39.0-53.0) % MCV (80.0-100.0) fL MCH (25.0-35.0) pg MCHC (31.0-37.0) g/dL RDW (11.5-15.5) % Plt Count (150-450) k/uL MPV Neutrophils % % Lymphocytes % % Monocytes % % Eosinophils % % Basophils % % Neutrophils # (1.3-7.7) k/uL Lymphocytes # (1.0-4.8) k/uL Monocytes # (0-1.0) k/uL Eosinophils # (0-0.7) k/uL Basophils # (0-0.2) k/uL PT (10.0-12.5) sec INR (<1.2) APTT (22.0-30.0) sec Sodium 133 L (137-145) mmol/L Potassium 4.4 (3.5-5.1) mmol/L Chloride 97 L (98-107) mmol/L Carbon Dioxide 14 L (22-30) mmol/L Anion Gap 22 mmol/L BUN 17 (9-20) mg/dL Creatinine 1.85 H (0.66-1.25) mg/dL Est GFR (CKD-EPI)AfAm 42 (>60 ml/min/1.73 sqM) Est GFR (CKD-EPI)NonAf 37 (>60 ml/min/1.73 sqM) Glucose 146 H (74-99) mg/dL POC Glucose (mg/dL) (70-110) mg/dL POC Glu Biology Instructor ID Plasma Lactic Acid Josse (0.7-2.0) mmol/L Calcium 10.4 H (8.4-10.2) mg/dL Total Bilirubin 1.2 (0.2-1.3) mg/dL AST 71 H (17-59) U/L ALT 25 (4-49) U/L Alkaline Phosphatase 88 (38-126) U/L Troponin I 1.250 H* (0.000-0.034) ng/mL Total Protein 8.9 H (6.3-8.2) g/dL Albumin 5.1 H (3.5-5.0) g/dL Urine Color Urine Appearance (Clear) Urine pH (5.0-8.0) Ur Specific [place] (1.001-1.035) Urine Protein (Negative) Urine Glucose (UA) (Negative) Urine Ketones (Negative) Urine Blood (Negative) Urine Nitrite (Negative) Urine Bilirubin (Negative) Urine Urobilinogen (<2.0) mg/dL Ur Leukocyte Esterase (Negative) Urine RBC (0-5) /hpf Urine WBC (0-5) /hpf Ur Squamous Epith Cells (0-4) /hpf Urine Bacteria (None) /hpf Hyaline Casts (0-2) /lpf Urine Mucus (None) /hpf Urine Opiates Screen Detected H (NotDetected) Ur Oxycodone Screen Not Detected (NotDetected) Urine Methadone Screen Not Detected (NotDetected) Ur Propoxyphene Screen Not Detected (NotDetected) Ur Barbiturates Screen Not Detected (NotDetected) U Tricyclic Antidepress Not Detected (NotDetected) Ur Phencyclidine Scrn Not Detected (NotDetected) Ur Amphetamines Screen Not Detected (NotDetected) U Methamphetamines Scrn Not Detected (NotDetected) U Benzodiazepines Scrn Detected H (NotDetected) Urine Cocaine Screen Not Detected (NotDetected) U Marijuana (THC) Screen Detected H (NotDetected) 11/10/23 11/10/23 Range/Units 11:14 12:59 WBC (3.8-10.6) k/uL RBC (4.30-5.90) m/uL Hgb (13.0-17.5) gm/dL Hct (39.0-53.0) % MCV (80.0-100.0) fL MCH (25.0-35.0) pg MCHC (31.0-37.0) g/dL RDW (11.5-15.5) % Plt Count (150-450) k/uL MPV Neutrophils % % Lymphocytes % % Monocytes % % Eosinophils % % Basophils % % Neutrophils # (1.3-7.7) k/uL Lymphocytes # (1.0-4.8) k/uL Monocytes # (0-1.0) k/uL Eosinophils # (0-0.7) k/uL Basophils # (0-0.2) k/uL PT (10.0-12.5) sec INR (<1.2) APTT (22.0-30.0) sec Sodium (137-145) mmol/L Potassium (3.5-5.1) mmol/L Chloride (98-107) mmol/L Carbon Dioxide (22-30) mmol/L Anion Gap mmol/L BUN (9-20) mg/dL Creatinine (0.66-1.25) mg/dL Est GFR (CKD-EPI)AfAm (>60 ml/min/1.73 sqM) Est GFR (CKD-EPI)NonAf (>60 ml/min/1.73 sqM) Glucose (74-99) mg/dL POC Glucose (mg/dL) (70-110) mg/dL POC Glu Biology Instructor ID Plasma Lactic Acid Josse 1.6 (0.7-2.0) mmol/L Calcium (8.4-10.2) mg/dL Total Bilirubin (0.2-1.3) mg/dL AST (17-59) U/L ALT (4-49) U/L Alkaline Phosphatase (38-126) U/L Troponin I (0.000-0.034) ng/mL Total Protein (6.3-8.2) g/dL Albumin (3.5-5.0) g/dL Urine Color Yellow Urine Appearance Clear (Clear) Urine pH 6.0 (5.0-8.0) Ur Specific [place] 1.022 (1.001-1.035) Urine Protein 3+ H (Negative) Urine Glucose (UA) Negative (Negative) Urine Ketones 2+ H (Negative) Urine Blood Large H (Negative) Urine Nitrite Negative (Negative) Urine Bilirubin 1+ H (Negative) Urine Urobilinogen 2.0 (<2.0) mg/dL Ur Leukocyte Esterase Negative (Negative) Urine RBC 3 (0-5) /hpf Urine WBC 1 (0-5) /hpf Ur Squamous Epith Cells <1 (0-4) /hpf Urine Bacteria Rare H (None) /hpf Hyaline Casts 5 H (0-2) /lpf Urine Mucus Rare H (None) /hpf Urine Opiates Screen (NotDetected) Ur Oxycodone Screen (NotDetected) Urine Methadone Screen (NotDetected) Ur Propoxyphene Screen (NotDetected) Ur Barbiturates Screen (NotDetected) U Tricyclic Antidepress (NotDetected) Ur Phencyclidine Scrn (NotDetected) Ur Amphetamines Screen (NotDetected) U Methamphetamines Scrn (NotDetected) U Benzodiazepines Scrn (NotDetected) Urine Cocaine Screen (NotDetected) U Marijuana (THC) Screen (NotDetected) Critical Care Time Critical Care Time: Yes Total Critical Care Time: 35 Disposition Clinical Impression: Osteomyelitis of foot, Altered mental status, Renal insufficiency, Non-STEMI (non-ST elevated myocardial infarction), New onset a-fib, Atrial fibrillation with rapid ventricular response Disposition: ADMITTED IP TO THIS [facility] Time of Disposition: 13:06
[2023-07-17 12:34] LABS: Appearance,Urine Clear (Clear); Bacteria,Urine Rare /hpf; Bilirubin,Urine 1+ (Negative); Blood,Urine Large (Negative); Color,Urine Yellow; Glucose,Urine (UA) Negative (Negative); Hyaline Casts,Urine 5 /lpf (0-2); Ketones,Urine 2+ (Negative); Leukocyte Esterase,Urine Negative (Negative); Mucus,Urine Rare /hpf; Nitrite,Urine Negative (Negative); Protein,Urine 3+ (Negative); RBC,Urine 3 /hpf (0-5); Specific Gravity,Urine 1.022 (1.001-1.035); Squamous Epithelial Cell,Urine <1 /hpf (0-4); WBC,Urine 1 /hpf (0-5)
[2023-07-17 12:39] LABS: Amphetamine Screen,Urine Not Detected (NotDetected); Barbiturate Screen,Urine Not Detected (NotDetected); Benzodiazepines Screen,Urine Detected (NotDetected); Cocaine Screen,Urine Not Detected (NotDetected); Methadone Screen, Urine Not Detected (NotDetected); Opiate Screen,Urine Detected (NotDetected); Oxycodone Screen, Urine Not Detected (NotDetected); Phencyclidine Screen,Urine Not Detected (NotDetected); Tricyclic Antidepressant,Urine Not Detected (NotDetected); Urn Cannabinoid Scrn Detected (NotDetected)
[2023-07-17] MEDS ORDERED: VANCOMYCIN IV PER PHARMACY 1 EACH MISC MISCELLANE PRN (13:00)
[2023-07-17] MEDS ORDERED: VANCOMYCIN 1,500 MG in SODIUM CHLORIDE 0.9% 500 ML 500 ML IVPB STA (13:06)
[2023-07-17] MEDS ORDERED: HEPARIN SODIUM 1,000 UN/ML (10ML VL) IV ONE (14:14)
[2023-07-17] MEDS ORDERED: hydrALAZINE HCL 20 MG/ML 1 ML VIAL IVP STA (14:28)
[2023-07-17] MEDS: HEPARIN SOD,PORK IN 0.45% NACL 25,000 UNIT in 0.45% NACL 1 250ML.BAG IV SCH (14:38)
[2023-07-17] MEDS ORDERED: ADENOSINE 3 MG/ML 2 ML VIAL IVP STA ×2 (15:24→15:25)
[2023-07-17] MEDS ORDERED: DILTIAZEM DRIP BOLUS FROM BAG 1 MG SOLN IV ONE ×2 (15:30→16:27)
[2023-07-17] MEDS ORDERED: DILTIAZEM 125 MG in SODIUM CHLORIDE 0.9% 100 ML IV SCH (15:30)
[2023-07-17] MEDS ORDERED: LORazepam 2 MG/ML INJ IV STA (16:21)
[2023-07-17] MEDS ORDERED: DILTIAZEM DRIP BOLUS FROM BAG 1 MG SOLN IV STA (16:22)
--- NOTE | 2023-07-17 17:18 | P.GSCN ---
History of Present Illness History of present illness: 68-year-old gentleman patient was brought into the emergency room by the family patient was alert oriented in before but he was confused and patient was brought into the EMS for further evaluation CT of the brain showed no evidence of inter- or hemorrhage any shift I was consulted for patient has a wound on the left foot plantar aspect and patient also had a fourth and fifth toe amputation in the past. Medical history history of COPD history of hypertension Personal history history of smoker Patient was seen in the emergency room patient is confused his neck is supple chest is clear few crackles the lung bases first and second sound present abdomen soft nontender femoral are 1+ patient has a wound on the plantar aspect base of the wound is clean no discharge or redness noted Plan is continue with local wound care [place] is an IV antibiotic and we'll follow with you Past Medical History Past Medical History: COPD, GERD/Reflux, Hyperlipidemia, Hypertension, Pneumonia, Skin Disorder, Vascular Disorder Additional Past Medical History / Comment(s): ETOH abuse, DT's, pancreatitis, chronic pain, PVD, PAD, neuropathy bilateral legs/feet and hands, past nonhealing wounds bilateral feet-past wound care center, 2006 osteomylitis L foot, chronic pain bilateral feet/legs and upper back-pt states he had thoracic vertebrae injury in past, peptic ulcer with surgery, psoriasis, sinus problems, past L clavicular fracture, acute renal failure, electrolyte disturbance. History of Any Multi-Drug Resistant Organisms: MRSA, VRE Year Discovered:: 01/21/22 MRSA & VRE MDRO Source:: RIGHT Foot Past Surgical History: Orthopedic Surgery Additional Past Surgical History / Comment(s): Amputation of the fourth and fifth toes on the right through the metatarsal heads, multiple I&D to nonhealing wounds on the R foot, repair of perforated ucler of stomach, EGD/colonoscopy, PICC lines in and out. Past Anesthesia/Blood Transfusion Reactions: Motion Sickness Additional Past Anesthesia/Blood Transfusion Reaction / Comm: claustrophobia Past Psychological History: ADD/ADHD, Anxiety, Depression Smoking Status: Current every day smoker Past Alcohol Use History: Unable to Obtain Past Drug Use History: Unable to Obtain - Past Family History Mother Family Medical History: CVA/TIA, Diabetes Mellitus, Vascular Disorder Additional Family Medical History / Comment(s): emotional problems. age 64 of cva Father Family Medical History: Hypertension Additional Family Medical History / Comment(s): age 38 from mva Medications and Allergies Home Medications Medication Instructions Recorded Confirmed Type Citalopram Hydrobromide [CeleXA] 20 mg PO DAILY 09/14/19 07/17/23 History Famotidine [Pepcid] 20 mg PO BID #1 tablet 09/20/19 07/17/23 Rx clonazePAM [KlonoPIN] 0.5 mg PO TID PRN 01/18/22 07/17/23 History traZODone HCL 150 mg PO HS 01/18/22 07/17/23 History cloNIDine HCL [Catapres] 0.2 mg PO TID #90 tab 01/24/22 07/17/23 Rx Gabapentin 800 mg PO TID 07/17/23 07/17/23 History HYDROcodone/APAP 10-325MG [[place] 1 tab PO Q6H PRN 07/17/23 07/17/23 History 10-325] lisinopriL [Zestril] 10 mg PO BID 07/17/23 07/17/23 History Allergies Allergy/AdvReac Type Severity Reaction Status Date / Time Penicillins Allergy Dyspnea, Verified 07/17/23 11:07 HIVES, THROAT SWELLING Surgical - Exam Vital Signs Temp Pulse Resp Pulse Ox 97.1 F L 80 18 96 07/17/23 11:03 07/17/23 11:03 07/17/23 11:03 07/17/23 11:03 Results - Labs 07/17/23 11:14 07/17/23 11:14 Abnormal Lab Results - Last 24 Hours (Table) 07/17/23 07/17/23 07/17/23 Range/Units 11:04 11:14 11:14 WBC 19.4 H (3.8-10.6) k/uL Neutrophils # 17.9 H (1.3-7.7) k/uL Lymphocytes # 0.5 L (1.0-4.8) k/uL Sodium (137-145) mmol/L Chloride (98-107) mmol/L Carbon Dioxide (22-30) mmol/L Creatinine (0.66-1.25) mg/dL Glucose (74-99) mg/dL POC Glucose (mg/dL) 157 H (70-110) mg/dL Calcium (8.4-10.2) mg/dL AST (17-59) U/L Troponin I (0.000-0.034) ng/mL Total Protein (6.3-8.2) g/dL Albumin (3.5-5.0) g/dL Urine Protein (Negative) Urine Ketones (Negative) Urine Blood (Negative) Urine Bilirubin (Negative) Urine Bacteria (None) /hpf Hyaline Casts (0-2) /lpf Urine Mucus (None) /hpf Urine Opiates Screen Detected H (NotDetected) U Benzodiazepines Scrn Detected H (NotDetected) U Marijuana (THC) Screen Detected H (NotDetected) 07/17/23 07/17/23 07/17/23 Range/Units 11:14 11:14 11:14 WBC (3.8-10.6) k/uL Neutrophils # (1.3-7.7) k/uL Lymphocytes # (1.0-4.8) k/uL Sodium 133 L (137-145) mmol/L Chloride 97 L (98-107) mmol/L Carbon Dioxide 14 L (22-30) mmol/L Creatinine 1.85 H (0.66-1.25) mg/dL Glucose 146 H (74-99) mg/dL POC Glucose (mg/dL) (70-110) mg/dL Calcium 10.4 H (8.4-10.2) mg/dL AST 71 H (17-59) U/L Troponin I 1.250 H* (0.000-0.034) ng/mL Total Protein 8.9 H (6.3-8.2) g/dL Albumin 5.1 H (3.5-5.0) g/dL Urine Protein 3+ H (Negative) Urine Ketones 2+ H (Negative) Urine Blood Large H (Negative) Urine Bilirubin 1+ H (Negative) Urine Bacteria Rare H (None) /hpf Hyaline Casts 5 H (0-2) /lpf Urine Mucus Rare H (None) /hpf Urine Opiates Screen (NotDetected) U Benzodiazepines Scrn (NotDetected) U Marijuana (THC) Screen (NotDetected) Diabetes panel 07/17/23 Range/Units 11:14 Sodium 133 L (137-145) mmol/L Potassium 4.4 (3.5-5.1) mmol/L Chloride 97 L (98-107) mmol/L Carbon Dioxide 14 L (22-30) mmol/L BUN 17 (9-20) mg/dL Creatinine 1.85 H (0.66-1.25) mg/dL Glucose 146 H (74-99) mg/dL Calcium 10.4 H (8.4-10.2) mg/dL AST 71 H (17-59) U/L ALT 25 (4-49) U/L Alkaline Phosphatase 88 (38-126) U/L Total Protein 8.9 H (6.3-8.2) g/dL Albumin 5.1 H (3.5-5.0) g/dL Calcium panel 07/17/23 Range/Units 11:14 Calcium 10.4 H (8.4-10.2) mg/dL Albumin 5.1 H (3.5-5.0) g/dL Pituitary panel 07/17/23 Range/Units 11:14 Sodium 133 L (137-145) mmol/L Potassium 4.4 (3.5-5.1) mmol/L Chloride 97 L (98-107) mmol/L Carbon Dioxide 14 L (22-30) mmol/L BUN 17 (9-20) mg/dL Creatinine 1.85 H (0.66-1.25) mg/dL Glucose 146 H (74-99) mg/dL Calcium 10.4 H (8.4-10.2) mg/dL Adrenal panel 07/17/23 Range/Units 11:14 Sodium 133 L (137-145) mmol/L Potassium 4.4 (3.5-5.1) mmol/L Chloride 97 L (98-107) mmol/L Carbon Dioxide 14 L (22-30) mmol/L BUN 17 (9-20) mg/dL Creatinine 1.85 H (0.66-1.25) mg/dL Glucose 146 H (74-99) mg/dL Calcium 10.4 H (8.4-10.2) mg/dL Total Bilirubin 1.2 (0.2-1.3) mg/dL AST 71 H (17-59) U/L ALT 25 (4-49) U/L Alkaline Phosphatase 88 (38-126) U/L Total Protein 8.9 H (6.3-8.2) g/dL Albumin 5.1 H (3.5-5.0) g/dL
[2023-07-17] MEDS ORDERED: LACTULOSE 20 GM/30 ML CUP PO PRN (18:28)
[2023-07-17] MEDS ORDERED: NALOXONE 0.4 MG/ML 1 ML VIAL IV PRN (18:28)
[2023-07-17] MEDS ORDERED: ONDANSETRON 4 MG/2 ML VIAL IVP PRN (18:28)
[2023-07-17] MEDS ORDERED: CALCIUM CARBONATE 500 MG CHEWABLE PO PRN (18:28)
[2023-07-17] MEDS: clonazePAM 0.5 MG TAB PO PRN (18:53)
[2023-07-17] MEDS: GABAPENTIN 400 MG CAP PO SCH (19:56)
[2023-07-17] MEDS: traZODone HCL 50 MG TAB PO SCH (19:57)
[2023-07-17] MEDS: cloNIDine HCL 0.2 MG TAB PO SCH (19:57)
[2023-07-17] MEDS: FAMOTIDINE 20 MG TAB PO SCH (19:57)
[2023-07-17] MEDS: MELATONIN 3 MG TABLET PO PRN (19:57)
[2023-07-17] MEDS: lisinopriL 10 MG TAB PO SCH (19:57)
[2023-07-17] MEDS ORDERED: FAMOTIDINE 20 MG TAB PO SCH (21:00)
[2023-07-17] MEDS: HYDROcodone/APAP 10-325MG 1 EACH TAB PO PRN (21:56)
[2023-07-18 05:02] LABS: African American GFR (CKD) 51 (>60 ml/min/1.73 sqM); Non-African American GFR(CKD) 44 (>60 ml/min/1.73 sqM)
--- NOTE | 2023-07-18 06:27 | P.CONS ---
History of Present Illness - Reason for Consult Consult date: 07/17/23 - History of Present Illness Patient is a 68-year-old male with a past medical history significant for hypertension hyperlipidemia COPD reflux patient did have a history of osteomyelitis requiring amputation of multiple toes with previous infection with VRE MRSA and Acinetobacter patient was brought into the hospital after apparently the patient was noticed to have mental status changes apparently the patient is awake alert oriented x4 and the patient was noticed to be extremely confused patient on presentation to the hospital was afebrile and no fever have recorded subsequently patient was not tachycardic hypotensive or hypoxic he did have vital of 19.4 with a left shift creatinine was 1.85 troponin was mildly elevated liver exams are normal urine did not show any evidence of pyuria urine testing was positive for opiates benzos and marijuana patient did have a chest x-ray that was reported negative for any acute infiltrate x-rays of the foot did shows mild soft tissue swelling of the left medial midfoot with similar erosive changes of the lateral aspect of the first TMT joint suggestive of osteomyelitis that has prompted this infectious disease consultation most information has been obtained from review the chart as the patient was pleasantly confused and did not provide any information and vomiting diarrhea or any other changes reported by the nursing staff Past Medical History Past Medical History: COPD, GERD/Reflux, Hyperlipidemia, Hypertension, Pneumonia, Skin Disorder, Vascular Disorder Additional Past Medical History / Comment(s): ETOH abuse, DT's, pancreatitis, chronic pain, PVD, PAD, neuropathy bilateral legs/feet and hands, past nonhealing wounds bilateral feet-past wound care center, 2006 osteomylitis L foot, chronic pain bilateral feet/legs and upper back-pt states he had thoracic vertebrae injury in past, peptic ulcer with surgery, psoriasis, sinus problems, past L clavicular fracture, acute renal failure, electrolyte disturbance. History of Any Multi-Drug Resistant Organisms: MRSA, VRE Year Discovered:: 01/21/22 MRSA & VRE MDRO Source:: RIGHT Foot Past Surgical History: Orthopedic Surgery Additional Past Surgical History / Comment(s): Amputation of the fourth and fifth toes on the right through the metatarsal heads, multiple I&D to nonhealing wounds on the R foot, repair of perforated ucler of stomach, EGD/colonoscopy, PICC lines in and out. Past Anesthesia/Blood Transfusion Reactions: Motion Sickness Additional Past Anesthesia/Blood Transfusion Reaction / Comm: claustrophobia Past Psychological History: ADD/ADHD, Anxiety, Depression Smoking Status: Current every day smoker Past Alcohol Use History: Unable to Obtain Past Drug Use History: Unable to Obtain - Past Family History Mother Family Medical History: CVA/TIA, Diabetes Mellitus, Vascular Disorder Additional Family Medical History / Comment(s): emotional problems. age 64 of cva Father Family Medical History: Hypertension Additional Family Medical History / Comment(s): age 38 from mva Medications and Allergies Home Medications Medication Instructions Recorded Confirmed Type Citalopram Hydrobromide [CeleXA] 20 mg PO DAILY 09/14/19 07/17/23 History Famotidine [Pepcid] 20 mg PO BID #1 tablet 09/20/19 07/17/23 Rx clonazePAM [KlonoPIN] 0.5 mg PO TID PRN 01/18/22 07/17/23 History traZODone HCL 150 mg PO HS 01/18/22 07/17/23 History cloNIDine HCL [Catapres] 0.2 mg PO TID #90 tab 01/24/22 07/17/23 Rx Gabapentin 800 mg PO TID 07/17/23 07/17/23 History HYDROcodone/APAP 10-325MG [[place] 1 tab PO Q6H PRN 07/17/23 07/17/23 History 10-325] lisinopriL [Zestril] 10 mg PO BID 07/17/23 07/17/23 History Allergies Allergy/AdvReac Type Severity Reaction Status Date / Time Penicillins Allergy Dyspnea, Verified 07/17/23 11:07 HIVES, THROAT SWELLING Physical Exam Vitals: Vital Signs Temp Pulse Resp BP Pulse Ox 07/17/23 12:25 81 22 198/115 07/17/23 11:21 184/106 07/17/23 11:03 97.1 F L 80 18 96 Intake and Output 07/16/23 07/17/23 07/17/23 22:59 06:59 14:59 Other: Weight 86.183 kg Results CBC & Chem 7: 07/17/23 11:14 07/18/23 03:46 Labs: Abnormal Lab Results - Last 24 Hours (Table) 07/17/23 07/17/23 07/17/23 Range/Units 11:04 11:14 11:14 WBC 19.4 H (3.8-10.6) k/uL Neutrophils # 17.9 H (1.3-7.7) k/uL Lymphocytes # 0.5 L (1.0-4.8) k/uL Sodium (137-145) mmol/L Chloride (98-107) mmol/L Carbon Dioxide (22-30) mmol/L Creatinine (0.66-1.25) mg/dL Glucose (74-99) mg/dL POC Glucose (mg/dL) 157 H (70-110) mg/dL Calcium (8.4-10.2) mg/dL AST (17-59) U/L Troponin I (0.000-0.034) ng/mL Total Protein (6.3-8.2) g/dL Albumin (3.5-5.0) g/dL Urine Protein (Negative) Urine Ketones (Negative) Urine Blood (Negative) Urine Bilirubin (Negative) Urine Bacteria (None) /hpf Hyaline Casts (0-2) /lpf Urine Mucus (None) /hpf Urine Opiates Screen Detected H (NotDetected) U Benzodiazepines Scrn Detected H (NotDetected) U Marijuana (THC) Screen Detected H (NotDetected) 07/17/23 07/17/23 07/17/23 Range/Units 11:14 11:14 11:14 WBC (3.8-10.6) k/uL Neutrophils # (1.3-7.7) k/uL Lymphocytes # (1.0-4.8) k/uL Sodium 133 L (137-145) mmol/L Chloride 97 L (98-107) mmol/L Carbon Dioxide 14 L (22-30) mmol/L Creatinine 1.85 H (0.66-1.25) mg/dL Glucose 146 H (74-99) mg/dL POC Glucose (mg/dL) (70-110) mg/dL Calcium 10.4 H (8.4-10.2) mg/dL AST 71 H (17-59) U/L Troponin I 1.250 H* (0.000-0.034) ng/mL Total Protein 8.9 H (6.3-8.2) g/dL Albumin 5.1 H (3.5-5.0) g/dL Urine Protein 3+ H (Negative) Urine Ketones 2+ H (Negative) Urine Blood Large H (Negative) Urine Bilirubin 1+ H (Negative) Urine Bacteria Rare H (None) /hpf Hyaline Casts 5 H (0-2) /lpf Urine Mucus Rare H (None) /hpf Urine Opiates Screen (NotDetected) U Benzodiazepines Scrn (NotDetected) U Marijuana (THC) Screen (NotDetected) Assessment and Plan Plan: 1patient presented hospital with mental status changes in this patient with no fever did have elevated white count chest x-ray was negative urine is negative abdominal soft on clinical examination did have a nonhealing wound to the left foot area with abnormal x-ray suspicious for osteomyelitis previously grown VRE MRSA and history of Bactrim 2-blood culture has been obtained we will obtain inflammatory markers 3-await vascular surgery evaluation and possible deep culture 4-we will empirically add cefepime and daptomycin while waiting for the cultures to be finalized, patient is penicillin allergic cannot use Unasyn We will follow on clinical condition and cultures to further adjust medication if needed Thank you for this consultation we will follow the patient along with you Dictation was produced using [employer] dictation software. please excuse any grammatical, word or spelling errors. Time with Patient: Greater than 30
[2023-07-18] MEDS: CITALOPRAM HYDROBROMIDE 20 MG TAB PO SCH (08:50)
[2023-07-18] MEDS: GABAPENTIN 400 MG CAP PO SCH (08:50)
[2023-07-18] MEDS: lisinopriL 10 MG TAB PO SCH ×2 (08:50→19:51)
[2023-07-18] MEDS: cloNIDine HCL 0.2 MG TAB PO SCH ×3 (08:50→19:51)
[2023-07-18] MEDS: CEFEPIME 2 GM in SODIUM CHLORIDE 0.9% 100 ML IVPB SCH ×2 (08:50→19:51)
[2023-07-18] MEDS: HYDROcodone/APAP 10-325MG 1 EACH TAB PO PRN ×2 (08:56→17:07)
--- NOTE | 2023-07-18 09:00 | CONS ---
CONSULTATION CHIEF COMPLAINT: Elevated troponin. HISTORY OF PRESENT ILLNESS: Valentin is a 68-year-old gentleman with history of chronic pain, hypertension, who was brought to the emergency room by EMS primarily because he was confused and family members were not quite sure why he had a wound on his left foot, came to the ER there. He was in sinus rhythm with PACs and PVCs and had a run of atrial fibrillation with rapid ventricular rate with a heart rate of 208 beats per minute. He converted back to sinus rhythm but his altered mental status stayed the same. His lab showed that the troponin came back elevated at 1.2 and he is admitted to hospital with acute non-ST- segment elevation [place], renal failure, nonhealing ulcer of the foot. The patient at the time of my evaluation this morning, appears comfortable at rest. Denies any chest pain or difficulty in breathing. His urine drug screen was positive for opiates and benzodiazepines and THC. He had a CT scan of the brain that did not reveal any new abnormalities. PAST MEDICAL HISTORY: Significant for hypertension. MEDICATIONS: Medications at home included, 1. Neurontin. 2. Pepcid. 3. Zestril. 4. Catapres. 5. [place]. 6. Celexa. 7. Trazodone. 8. Klonopin. ALLERGIES: He is allergic to penicillin. FAMILY HISTORY: Negative for premature coronary artery disease. SOCIAL HISTORY: Significant for smoking and marijuana. REVIEW OF SYSTEMS: HEENT: Unremarkable. CARDIAC: As described above. RESPIRATORY: Negative. GI: Negative. : Negative. ALLERGY/IMMUNOLOGY: Negative. SKIN: Negative. MUSCULOSKELETAL: Significant for musculoskeletal pain. Rest of the system review is not relevant. PHYSICAL EXAMINATION: VITAL SIGNS: Heart rate is 100 beats per minute. Blood pressure 130/60, respiratory rate is 16, O2 saturation is 97% on room air. NECK: There is no jugular venous distention. CHEST: Reveals good air entry bilaterally. HEART: Reveals first and second heart sounds. Irregular rhythm and no murmur. ABDOMEN: Soft. EXTREMITIES: Exam of extremities reveals mild edema and nonhealing foot ulcer. LABORATORY DATA: Labs show that troponin is 1.2. His creatinine was 1.8 on initial admission and is 1.5 now. Potassium is 4.4. Hemoglobin is 14.4 with a white cell count of 19.4. 1. Non ST-segment elevation myocardial infarction. 2. Atrial fibrillation with rapid ventricular rate. 3. Acute renal failure. 4. Sepsis with possible osteomyelitis. PLAN: The patient remains in atrial fibrillation this morning. I am going to start him on beta blockers for rate control. Stop the Cardizem. Obtain a 2D echo and continue IV heparin and I will decide on further course of action based on the echo findings. The patient will need evaluation for ischemic heart disease once the renal functions improve and the patient's confusion fully resolves. MMODL / JACQUESN: [id number] /
--- NOTE | 2023-07-18 11:15 | P.PN ---
Subjective Progress Note Date: 07/18/23 Principal diagnosis: Abnormal x-ray left foot osteomyelitis Patient is a 68-year-old male with a past medical history significant for hypertension hyperlipidemia COPD reflux patient did have a history of osteomyelitis requiring amputation of multiple toes with previous infection with VRE MRSA and Acinetobacter patient was brought into the hospital after apparently the patient was noticed to have mental status changes, workup did include elevated white count and did have abnormal x-ray to the left foot concerning for osteomyelitis. On today's evaluation that is 07/18/2023, the patient is more awake and alert today, the patient denies any fever or any chills, the patient is breathing comfortably on room air without any need for supplemental oxygen, the patient d enies any chest pain or any cough , patient denies abdominal pain, no nausea/vomiting diarrhea , denies any worsening pain to the left foot Patient did have a creatinine is 1.58 Objective - Vital Signs Vital signs: Vital Signs Temp 98.4 F 07/18/23 08:00 Pulse 100 07/18/23 08:00 Resp 17 07/18/23 08:00 BP 129/75 07/18/23 08:00 Pulse Ox 95 07/18/23 08:00 FiO2 Intake & Output 07/17/23 07/18/23 07/18/23 18:59 06:59 18:59 Intake Total 3.167 67.333 254.815 Output Total 500 Balance 3.167 -432.667 254.815 Weight 86.183 kg Intake: Intake, IV Titration 3.167 67.333 134.815 Amount Diltiazem 125 mg In 3.167 Sodium Chloride 0.9% 100 ml @ 5 MG/HR 5 mls/hr IV .Q24H [facility] Rx#:[id number] Heparin Sod,Pork in 0.45% 67.333 134.815 NaCl 25,000 unit In 0.45 % NaCl 1 250ml.bag @ 11. 603 UNITS/KG/HR 10 mls/hr IV .Q24H [facility] Rx#: [id number] Oral 120 Output: Urine 500 Other: Voiding Method Diaper Diaper - Exam GENERAL DESCRIPTION: An elderly male lying in bed in no distress RESPIRATORY SYSTEM: Unlabored breathing , clear to auscultation anteriorly HEART: S1 S2 regular rate and rhythm , ABDOMEN: Soft , no tenderness EXTREMITIES: Left foot is currently dressed, minimal drainage on the dressing - Labs CBC & Chem 7: 07/17/23 11:14 07/18/23 03:46 Labs: Abnormal Lab Results - Last 24 Hours (Table) 07/17/23 07/17/23 07/17/23 Range/Units 11:04 11:14 11:14 WBC 19.4 H (3.8-10.6) k/uL Neutrophils # 17.9 H (1.3-7.7) k/uL Lymphocytes # 0.5 L (1.0-4.8) k/uL APTT (22.0-30.0) sec Sodium (137-145) mmol/L Chloride (98-107) mmol/L Carbon Dioxide (22-30) mmol/L Creatinine (0.66-1.25) mg/dL Glucose (74-99) mg/dL POC Glucose (mg/dL) 157 H (70-110) mg/dL Calcium (8.4-10.2) mg/dL AST (17-59) U/L Troponin I (0.000-0.034) ng/mL Total Protein (6.3-8.2) g/dL Albumin (3.5-5.0) g/dL Urine Protein (Negative) Urine Ketones (Negative) Urine Blood (Negative) Urine Bilirubin (Negative) Urine Bacteria (None) /hpf Hyaline Casts (0-2) /lpf Urine Mucus (None) /hpf Urine Opiates Screen Detected H (NotDetected) U Benzodiazepines Scrn Detected H (NotDetected) U Marijuana (THC) Screen Detected H (NotDetected) 07/17/23 07/17/23 07/17/23 Range/Units 11:14 11:14 11:14 WBC (3.8-10.6) k/uL Neutrophils # (1.3-7.7) k/uL Lymphocytes # (1.0-4.8) k/uL APTT (22.0-30.0) sec Sodium 133 L (137-145) mmol/L Chloride 97 L (98-107) mmol/L Carbon Dioxide 14 L (22-30) mmol/L Creatinine 1.85 H (0.66-1.25) mg/dL Glucose 146 H (74-99) mg/dL POC Glucose (mg/dL) (70-110) mg/dL Calcium 10.4 H (8.4-10.2) mg/dL AST 71 H (17-59) U/L Troponin I 1.250 H* (0.000-0.034) ng/mL Total Protein 8.9 H (6.3-8.2) g/dL Albumin 5.1 H (3.5-5.0) g/dL Urine Protein 3+ H (Negative) Urine Ketones 2+ H (Negative) Urine Blood Large H (Negative) Urine Bilirubin 1+ H (Negative) Urine Bacteria Rare H (None) /hpf Hyaline Casts 5 H (0-2) /lpf Urine Mucus Rare H (None) /hpf Urine Opiates Screen (NotDetected) U Benzodiazepines Scrn (NotDetected) U Marijuana (THC) Screen (NotDetected) 07/17/23 07/18/23 07/18/23 Range/Units 20:18 03:46 03:46 WBC (3.8-10.6) k/uL Neutrophils # (1.3-7.7) k/uL Lymphocytes # (1.0-4.8) k/uL APTT 37.3 H 41.4 H (22.0-30.0) sec Sodium (137-145) mmol/L Chloride (98-107) mmol/L Carbon Dioxide (22-30) mmol/L Creatinine 1.58 H (0.66-1.25) mg/dL Glucose (74-99) mg/dL POC Glucose (mg/dL) (70-110) mg/dL Calcium (8.4-10.2) mg/dL AST (17-59) U/L Troponin I (0.000-0.034) ng/mL Total Protein (6.3-8.2) g/dL Albumin (3.5-5.0) g/dL Urine Protein (Negative) Urine Ketones (Negative) Urine Blood (Negative) Urine Bilirubin (Negative) Urine Bacteria (None) /hpf Hyaline Casts (0-2) /lpf Urine Mucus (None) /hpf Urine Opiates Screen (NotDetected) U Benzodiazepines Scrn (NotDetected) U Marijuana (THC) Screen (NotDetected) Assessment and Plan (1) Abnormal x-ray Current Visit: Yes Status: Acute Code(s): R93.89 - ABNORMAL FINDINGS ON DX IMAGING OF OTH BODY STRUCTURES SNOMED Code(s): 377802906 (2) Foot osteomyelitis, left Current Visit: Yes Status: Acute Code(s): M86.9 - OSTEOMYELITIS, UNSPECIFIED SNOMED Code(s): 4191203440777586 Plan: 1patient presented hospital with mental status changes in this patient with no fever did have elevated white count chest x-ray was negative urine is negative abdominal soft on clinical examination did have a nonhealing wound to the left foot area with abnormal x-ray suspicious for osteomyelitis previously grown VRE MRSA and history of Bactrim 2-blood culture has been obtained we are waiting for inflammatory markers 3Patient benefit from debridement and deep culture to determine infecting pathogen 4patient continue with cefepime and daptomycin while waiting for the cultures to be finalized Dictation was produced using [employer] dictation software. please excuse any grammatical, word or spelling errors. Time with Patient: Less than 30
[2023-07-18] MEDS: HEPARIN SOD,PORK IN 0.45% NACL 25,000 UNIT in 0.45% NACL 1 250ML.BAG IV SCH (11:17)
--- NOTE | 2023-07-18 13:51 | P.HPIM ---
History of Present Illness H&P Date: 07/18/23 Chief Complaint: Unwell This is a pleasant 68-year-old patient of Dr. Mustafa. Chronic stable medical conditions include COPD, peripheral artery disease, GERD, hypertension, bipolar disorder., peripheral Neuropathy from alcoholism. heavy drinking up to 2018. Patient continues to smoke. brother Sotero - legal guardian. Patient has chronic foot wounds for which she follows at the wound care center. Patient does wear special shoes. Follows Dr. Akbar in the wound care center. Patient's brother called the EMS: There found him to be altered. And diaphoretic. No answering questions appropriately. Brother told him that patient's mental status has been declining over the last 3 days. Patient does not remember being brought by the ambulance to the hospital. Does not know why he is here. His brother gases closely. Patient is able to get around his apartment. Also has some home health. Denies any fever and chills. Some pain in the left foot. Review of systems: GEN.: Tired EYES: None HEENT: None NECK: None RESPIRATORY: [Occasional cough CARDIOVASCULAR: None GASTROINTESTINAL: None GENITOURINARY: None MUSCULOSKELETAL: Joint pains, left foot wound LYMPHATICS: None HEMATOLOGICAL: None PSYCHIATRY: None NEUROLOGICAL: Numbness in the feet Past medical history to include: COPD, PAD, foot wounds, GERD, hypertension, bipolar disorder, peripheral neuropathy from alcoholism Social history: Stopped drinking heavy alcohol in 2018. Long-standing smoker currently down to about 56 cigarettes a day. Brother Sotero legal guardian. Lives alone. Has some home help. Family history: Diabetes, vascular disorder, stroke Physical examination: VITAL SIGNS: 98.4, 100, 17, 129/75, 95% room air GENERAL: Sitting up in a recliner, tired awake EYES: Pupils equal. Conjunctiva normal. HEENT: External appearance of nose and ears normal, oral cavity grossly normal. NECK: JVD not raised; masses not palpable. HEART: First and second heart sounds are normal; no edema. LUNGS: Respiratory rate increased; decreased breath sounds. ABDOMEN: Soft, nontender, liver spleen not palpable, no masses palpable. PSYCH: Able to hold a simple conversation. Does not remember why he is here. MUSCULOSKELETAL:No Clubbing/cyanosis;muscles-grossly intact. Amputation of the fourth and fifth toe on the right to the metatarsal head. Wound in both the feet. Pictures in the nursing chart NEUROLOGICAL: Cranial nerves grossly intact; no facial asymmetry, power grossly intact. Decreased sensation distally. INVESTIGATIONS, reviewed in the clinical context: 07/17/2023: White count 19.4 hemoglobin 14.4 platelets 175 sodium 133 bicarb 14 BUN 17 creatinine 1.85 Troponin I 1.2, 0.372 Urine drug seen positive for benzodiazepine, marijuana EKG tracing personally reviewed by me-atrial fibrillation. Chest x-ray film personally reviewed by me-no obvious infiltrate CT brain: Generalized degenerative changes Previous labs: January 2022: Creatinine 1.5 to Assessment and plan: -Brought in because of mental matter status changes. As per the brother deteriorating for about 3 days. No fever reported. Has infected wounds. Likely delirium/metabolic encephalopathy IV fluids. Cutback nose of Neurontin the setting of renal failure. -Bilateral foot , pressure ulcer wounds especially in the plantar aspect deep in a patient with known peripheral artery disease and peripheral neuropathy, underlying Charcot foot: Follows at the wound care center with Dr. Akbar. Vascular consulted. Wound care. ID consulted. -COPD in a current smoker DuoNeb 3 times a day -Chronic nicotine dependence cigarette smoker Nicotine patch 7 -Acute kidney injury likely ATN from underlying infection: Follow labs. IV fluids. -Persistent atrial fibrillation, rate controlled Received IV Cardizem in the ER. IV heparin - chronic kidney disease stage 3 from nephrosclerosis creatinine was 1.52 in January 2022 -GERD Pepcid 20 mg twice a day -Essential Hypertension: Catapres to 0.2 mg 3 times a day. Zestril 10 mg twice a day -Bipolar disorder Trazodone 150 mg daily at bedtime. Klonopin 0.5 mg 3 times a day-when necessary Celexa 20 mg a day -Painful Peripheral neuropathy secondary to history of alcoholism: Controlled Neurontin 600 mg 3 times a day. Dose was reduced -Charcot foot Consultation to vascular, ID, cardiology. Discussed with patient. Past Medical History Past Medical History: COPD, GERD/Reflux, Hyperlipidemia, Hypertension, Pneumonia, Skin Disorder, Vascular Disorder Additional Past Medical History / Comment(s): ETOH abuse, DT's, pancreatitis, chronic pain, PVD, PAD, neuropathy bilateral legs/feet and hands, past nonhealing wounds bilateral feet-past wound care center, 2006 osteomylitis L zara t, chronic pain bilateral feet/legs and upper back-pt states he had thoracic vertebrae injury in past, peptic ulcer with surgery, psoriasis, sinus problems, past L clavicular fracture, acute renal failure, electrolyte disturbance. History of Any Multi-Drug Resistant Organisms: MRSA, VRE Date of last positivie culture/infection: 01/21/22 MRSA & VRE MDRO Source:: RIGHT Foot Past Surgical History: Orthopedic Surgery Additional Past Surgical History / Comment(s): Amputation of the fourth and fifth toes on the right through the metatarsal heads, multiple I&D to nonhealing wounds on the R foot, repair of perforated ucler of stomach, EGD/colonoscopy, PICC lines in and out. Past Anesthesia/Blood Transfusion Reactions: Motion Sickness Additional Past Anesthesia/Blood Transfusion Reaction / Comment(s): claustrophobia Past Psychological History: ADD/ADHD, Anxiety, Depression Smoking Status: Current every day smoker Past Alcohol Use History: Unable to Obtain Past Drug Use History: Unable to Obtain - Past Family History Mother Family Medical History: CVA/TIA, Diabetes Mellitus, Vascular Disorder Additional Family Medical History / Comment(s): emotional problems. age 64 of cva Father Family Medical History: Hypertension Additional Family Medical History / Comment(s): age 38 from mva Medications and Allergies Home Medications Medication Instructions Recorded Confirmed Type Citalopram Hydrobromide [CeleXA] 20 mg PO DAILY 09/14/19 07/17/23 History Famotidine [Pepcid] 20 mg PO BID #1 tablet 09/20/19 07/17/23 Rx clonazePAM [KlonoPIN] 0.5 mg PO TID PRN 01/18/22 07/17/23 History traZODone HCL 150 mg PO HS 01/18/22 07/17/23 History cloNIDine HCL [Catapres] 0.2 mg PO TID #90 tab 01/24/22 07/17/23 Rx Gabapentin 800 mg PO TID 07/17/23 07/17/23 History HYDROcodone/APAP 10-325MG [[place] 1 tab PO Q6H PRN 07/17/23 07/17/23 History 10-325] lisinopriL [Zestril] 10 mg PO BID 07/17/23 07/17/23 History Allergies Allergy/AdvReac Type Severity Reaction Status Date / Time Penicillins Allergy Dyspnea, Verified 07/17/23 11:07 HIVES, THROAT SWELLING Physical Exam Vitals: Vital Signs Temp Pulse Pulse Resp BP BP Pulse Ox 07/18/23 08:00 98.4 F 100 18 129/75 95 07/18/23 04:00 98.5 F 101 H 16 130/61 97 07/18/23 00:11 97.8 F 76 16 107/61 98 07/17/23 20:00 98.5 F 70 16 175/85 98 07/17/23 17:30 97.6 F 93 20 165/80 94 L 07/17/23 17:00 101 H 20 154/74 97 07/17/23 16:31 105 H 24 165/77 96 07/17/23 15:36 152 H 28 H 96 07/17/23 15:22 222 H 30 H 167/108 07/17/23 14:59 96 18 188/103 98 07/17/23 14:28 98 18 192/106 99 Intake and Output 07/17/23 07/18/23 07/18/23 22:59 06:59 14:59 Intake Total 70.500 407.979 Output Total 500 Balance 70.500 -500 407.979 Intake: Intake, IV Titration 70.500 167.979 Amount Diltiazem 125 mg In 3.167 Sodium Chloride 0.9% 100 ml @ 5 MG/HR 5 mls/hr IV .Q24H [facility] Rx#:[id number] Heparin Sod,Pork in 0.45% 67.333 167.979 NaCl 25,000 unit In 0.45 % NaCl 1 250ml.bag @ 11. 603 UNITS/KG/HR 10 mls/hr IV .Q24H [facility] Rx#: [id number] Oral 240 Output: Urine 500 Other: Voiding Method Diaper Toilet # Voids 0 # Bowel Movements 0 Results CBC & Chem 7: 07/17/23 11:14 07/18/23 03:46 Labs: Abnormal Lab Results - Last 24 Hours (Table) 07/17/23 07/18/23 07/18/23 Range/Units 20:18 03:46 03:46 APTT 37.3 H 41.4 H (22.0-30.0) sec Creatinine 1.58 H (0.66-1.25) mg/dL Troponin I (0.000-0.034) ng/mL 07/18/23 Range/Units 09:03 APTT (22.0-30.0) sec Creatinine (0.66-1.25) mg/dL Troponin I 0.372 H* (0.000-0.034) ng/mL Thrombosis Risk Factor Assmnt - Choose All That Apply Each Risk Factor Represents 2 Points: Age 61-74 years Thrombosis Risk Factor Assessment Total Risk Factor Score: 2 Thrombosis Risk Factor Assessment Level: Low Risk
[2023-07-18] MEDS: IPRATROPIUM-ALBUTEROL 3 ML NEB INHALATION SCH ×2 (15:30→20:47)
[2023-07-18] MEDS: NICOTINE 14MG/24HR PATCH TRANSDERM SCH (17:07)
[2023-07-18] MEDS: DAPTOmycin 500 MG in SODIUM CHLORIDE 0.9% 50 ML IVPB SCH (18:18)
--- NOTE | 2023-07-18 18:25 | CA ---
Transthoracic Echo Report Name: Valentin Dale Age: 68 Gender: M : 1955 Exam Date: 07/18/2023 09:54 Exam Location: [facility] Ht (in): 71 Wt (lb): 190 Ordering Physician: Shun Billy MD ([id number]) Attending/Referring Phys: Wenceslao CARRILLO Battery Vent Plug Inserter Maritza Patricia RDCS Procedure CPT: Indications: troponin Cardiac Hx: Technical Quality: Fair Contrast 1: Total Dose (mL): Contrast 2: Total Dose (mL): MEASUREMENTS (Male / Female) Normal Values 2D ECHO LV Diastolic Diameter PLAX 5.1 cm 4.2 - 5.9 / 3.9 - 5.3 cm LV Systolic Diameter PLAX 3.5 cm IVS Diastolic Thickness 1.3 cm 0.6 - 1.0 / 0.6 - 0.9 cm LVPW Diastolic Thickness 1.2 cm 0.6 - 1.0 / 0.6 - 0.9 cm LV Relative Wall Thickness 0.5 RV Internal Dim ED PLAX 3.6 cm LA Systolic Diameter LX 3.6 cm 3.0 - 4.0 / 2.7 - 3.8 cm LA Volume 77.9 cm??? 18 - 58 / 22 - 52 cm??? LA Volume Index 37.3 cm???/m??? 16 - 28 cm???/m??? M-MODE Aortic Root Diameter MM 3.9 cm MV E Point Septal Separation 0.4 cm AV Cusp Separation MM 2.5 cm DOPPLER AV Peak Velocity 220.3 cm/s AV Peak Gradient 19.4 mmHg AV Mean Velocity 135.0 cm/s AV Mean Gradient 8.7 mmHg AV Velocity Time Integral 31.1 cm AI Peak Velocity 311.9 cm/s AI Peak Gradient 38.9 mmHg AI Pressure Half Time 771.1 ms LVOT Peak Velocity 177.8 cm/s LVOT Peak Gradient 12.7 mmHg MV Area PHT 6.5 cm??? MV Deceleration Time 167.1 ms TR Peak Velocity 283.8 cm/s TR Peak Gradient 32.2 mmHg Right Ventricular Systolic Press 36.5 mmHg FINDINGS Left Ventricle Left ventricular ejection fraction is estimated at 55-60 %. Left ventricular cavity size normal. Mildly increased septal wall thickness. Right Ventricle Mild right ventricular dilatation. Mild pulmonary hypertension. Right Atrium Normal right atrial size. Left Atrium Moderately increased left atrial volume. Mildly increased left atrial area. Mitral Valve Mild thickening/calcification of the anterior mitral valve leaflet. Trace mitral regurgitation. Aortic Valve Trileaflet aortic valve. Aortic valve sclerosis. Mild aortic regurgitation. Mild aortic stenosis with a peak gradient of 19 mmHg and a mean gradient of 9 mmHg. Tricuspid Valve Structurally normal tricuspid valve. Mild tricuspid regurgitation. Pulmonic Valve Structurally normal pulmonic valve. No pulmonic regurgitation. Pericardium No pericardial effusion. Aorta Mild aortic dilatation at the level of the sinuses of valsalva 39 mm CONCLUSIONS Normal LV systolic function Mild aortic stenosis Mild aortic regurgitation Mildly dilated aortic root Previewed by: Dr. Shun Billy MD (Electronically Signed) Final Date: 18 July 2023 18:24
[2023-07-18] MEDS: GABAPENTIN 300 MG CAP PO SCH (19:50)
[2023-07-18] MEDS: traZODone HCL 50 MG TAB PO SCH (19:50)
[2023-07-18] MEDS: MELATONIN 3 MG TABLET PO PRN (19:50)
[2023-07-18] MEDS: FAMOTIDINE 20 MG TAB PO SCH (19:51)
[2023-07-18] MEDS: clonazePAM 0.5 MG TAB PO PRN (23:53)
[2023-07-19] MEDS: ALPRAZolam 0.25 MG TAB PO PRN ×2 (05:01→12:30)
[2023-07-19] MEDS: IPRATROPIUM-ALBUTEROL 3 ML NEB INHALATION SCH ×3 (07:48→19:57)
[2023-07-19] MEDS: cloNIDine HCL 0.2 MG TAB PO SCH (08:43)
[2023-07-19] MEDS: METOPROLOL TARTRATE 50 MG TAB PO SCH ×2 (08:43→19:43)
[2023-07-19] MEDS: lisinopriL 10 MG TAB PO SCH ×3 (08:43→22:28)
[2023-07-19] MEDS: NICOTINE 14MG/24HR PATCH TRANSDERM SCH (08:43)
[2023-07-19] MEDS: CITALOPRAM HYDROBROMIDE 20 MG TAB PO SCH (08:43)
[2023-07-19] MEDS: clonazePAM 0.5 MG TAB PO PRN ×2 (08:43→18:46)
[2023-07-19] MEDS: GABAPENTIN 300 MG CAP PO SCH (08:43)
[2023-07-19] MEDS: CEFEPIME 2 GM in SODIUM CHLORIDE 0.9% 100 ML IVPB SCH ×2 (08:44→19:44)
--- NOTE | 2023-07-19 11:40 | P.PN ---
Subjective Progress Note Date: 07/19/23 History of present illness: This is a 68-year-old male with past medical history of chronic pain, hyperten marcela. Patient presented to the emergency center with confusion and wound on his left foot. Patient was in a sinus rhythm with PACs and PVCs with a run of atrial fibrillation with RVR heart rate up to 208 bpm. Patient converted to sinus rhythm but his altered mental status has stayed unchanged. His troponin came back elevated at 1.2. He was admitted to the hospital for acute non-ST elevated myocardial infarction and nonhealing ulcer of the foot. Urine drug screen was positive for opiates and benzodiazepines and THC. CAT scan of the brain did not show any new abnormalities. Patient is more confused today almost a point of being aggressive. Patient has been started on heparin drip. Ca rdizem drip was discontinued yesterday. Heart rate is running in the 68-72. Blood pressure 132/67. Echocardiogram reveals EF of 55-60%, mild , mild AR, dilated aortic root. Physical examination: Gen: This is a 68-year-old male resting in bed and in no acute distress. VS: reviewed HEENT: Head is atraumatic, normocephalic. Pupils equal, round. Sclerae is anicteric. NECK: Supple. No JVD. . LUNGS: Clear to auscultation. No wheezes or rhonchi. No intercostal retractions. HEART: Irregular rate and rhythm. No murmur. ABDOMEN: Soft No tenderness. EXTREMITIES: No pedal edema. No calf tenderness. Left Foot wound with dressing on. NEUROLOGICAL: Patient is awake, alert and confused. Assessment: Non-ST elevated myocardial infarction New-onset atrial fibrillation with RVR, paroxysmal Acute renal failure Sepsis with possible osteomyelitis, left foot Plan: Continue heparin drip Start patient on metoprolol tartrate 50 mg twice daily Continue sepsis workup and treatment Continue renal failure treatment Patient will require ischemic cardiac workup once his renal function and mental status improved. Further recommendations to follow based upon clinical course Nurse practitioner note has been reviewed, I agree with documented findings and plan of care. Patient was seen and examined. Objective - Vital Signs Vital signs: Vital Signs Temp 97.7 F 07/19/23 04:00 Pulse 97 07/19/23 04:00 Resp 18 07/19/23 04:00 BP 132/67 07/19/23 04:00 Pulse Ox 97 07/19/23 04:00 FiO2 Intake & Output 07/18/23 07/19/23 07/19/23 18:59 06:59 18:59 Intake Total 1527.979 Output Total 300 0 Balance 1227.979 0 Intake: Intake, IV Titration 267.979 Amount Cefepime 2 gm In Sodium 100 Chloride 0.9% 100 ml @ 25 mls/hr IVPB Q12H [facility] Rx# :[id number] Heparin Sod,Pork in 0.45% 167.979 NaCl 25,000 unit In 0.45 % NaCl 1 250ml.bag @ 11. 603 UNITS/KG/HR 10 mls/hr IV .Q24H [facility] Rx#: [id number] Oral 1260 Output: Urine 300 0 Other: Voiding Method Toilet Toilet # Voids 0 # Bowel Movements 0 - Labs CBC & Chem 7: 07/17/23 11:14 07/18/23 03:46 Labs: Abnormal Lab Results - Last 24 Hours (Table) 07/18/23 07/18/23 07/19/23 Range/Units 09:03 16:50 00:14 APTT 44.7 H 56.1 H (22.0-30.0) sec Troponin I 0.372 H* (0.000-0.034) ng/mL Microbiology - Last 24 Hours (Table) 07/17/23 11:14 Blood Culture - Preliminary Blood
--- NOTE | 2023-07-19 15:22 | P.PN ---
Subjective Progress Note Date: 07/19/23 Principal diagnosis: Abnormal x-ray left foot osteomyelitis Patient is a 68-year-old male with a past medical history significant for hypertension hyperlipidemia COPD reflux patient did have a history of osteomyelitis requiring amputation of multiple toes with previous infection with VRE MRSA and Acinetobacter patient was brought into the hospital after apparently the patient was noticed to have mental status changes, workup did include elevated white count and did have abnormal x-ray to the left foot concerning for osteomyelitis. On today's evaluation that is 07/19/2023, the patient remains to be afebrile , the patient is breathing comfortably on room air , patient is slightly on the low side and did not answer any question no vomiting or diarrhea has been re ported, denies any worsening pain to the left foot Patient did not have any new labs today Objective - Vital Signs Vital signs: Vital Signs Temp 98.7 F 07/19/23 11:40 Pulse 79 07/19/23 11:40 Resp 17 07/19/23 11:40 BP 145/85 07/19/23 11:40 Pulse Ox 97 07/19/23 11:40 FiO2 Intake & Output 07/18/23 07/19/23 07/19/23 18:59 06:59 18:59 Intake Total 1527.979 430 Output Total 300 0 Balance 1227.979 0 430 Intake: Intake, IV Titration 267.979 250 Amount Cefepime 2 gm In Sodium 100 Chloride 0.9% 100 ml @ 25 mls/hr IVPB Q12H [facility] Rx# :[id number] Heparin Sod,Pork in 0.45% 167.979 250 NaCl 25,000 unit In 0.45 % NaCl 1 250ml.bag @ 11. 603 UNITS/KG/HR 10 mls/hr IV .Q24H [facility] Rx#: [id number] Oral 1260 180 Output: Urine 300 0 Other: Voiding Method Toilet Toilet Toilet # Voids 0 # Bowel Movements 0 - Exam GENERAL DESCRIPTION: An elderly male lying in bed in no distress RESPIRATORY SYSTEM: Unlabored breathing , clear to auscultation anteriorly HEART: S1 S2 regular rate and rhythm , ABDOMEN: Soft , no tenderness EXTREMITIES: Left foot is currently dressed, minimal drainage on the dressing - Labs CBC & Chem 7: 07/17/23 11:14 07/18/23 03:46 Labs: Abnormal Lab Results - Last 24 Hours (Table) 07/18/23 07/19/23 07/19/23 Range/Units 16:50 00:14 11:49 APTT 44.7 H 56.1 H 42.3 H (22.0-30.0) sec Microbiology - Last 24 Hours (Table) 07/17/23 11:14 Blood Culture - Preliminary Blood Assessment and Plan (1) Abnormal x-ray Current Visit: Yes Status: Acute Code(s): R93.89 - ABNORMAL FINDINGS ON DX I MAGING OF OTH BODY STRUCTURES SNOMED Code(s): 565457379 (2) Foot osteomyelitis, left Current Visit: Yes Status: Acute Code(s): M86.9 - OSTEOMYELITIS, UNSPECIFIED SNOMED Code(s): 8158735463266992 Plan: 1patient presented hospital with mental status changes in this patient with no fever did have elevated white count chest x-ray was negative urine is negative abdominal soft on clinical examination did have a nonhealing wound to the left foot area with abnormal x-ray suspicious for osteomyelitis previously grown VRE MRSA and history of Bactrim 2-blood culture has been obtained so far negative 3Patient will benefit from debridement and deep culture to determine infecting pathogen, we'll discuss further the vascular surgery 4patient continue with cefepime and daptomycin and monitor clinical course closely Dictation was produced using [employer] dictation software. please excuse any grammatical, word or spelling errors. Time with Patient: Less than 30
[2023-07-19] MEDS: cloNIDine HCL 0.1 MG TAB PO SCH ×3 (17:12→22:28)
[2023-07-19] MEDS: DAPTOmycin 500 MG in SODIUM CHLORIDE 0.9% 50 ML IVPB SCH (17:12)
[2023-07-19] MEDS: GABAPENTIN 400 MG CAP PO SCH ×3 (17:12→22:28)
[2023-07-19] MEDS: HEPARIN SOD,PORK IN 0.45% NACL 25,000 UNIT in 0.45% NACL 1 250ML.BAG IV SCH (18:41)
[2023-07-19] MEDS: MELATONIN 3 MG TABLET PO PRN (19:42)
[2023-07-19] MEDS: FAMOTIDINE 20 MG TAB PO SCH ×2 (19:43→22:27)
[2023-07-19] MEDS: HYDROcodone/APAP 10-325MG 1 EACH TAB PO PRN (19:43)
[2023-07-19] MEDS ORDERED: HALOPERIDOL LACTATE 5 MG/ML 1 ML VIAL IVP PRN (21:53)
[2023-07-19] MEDS: risperiDONE 2 MG TAB PO SCH (22:28)
--- NOTE | 2023-07-19 22:36 | P.PN ---
Progress Note - Text Progress Note Date: 07/19/23 Chief Complaint: Unwell This is a pleasant 68-year-old patient of Dr. Mustafa. Chronic stable medical conditions include COPD, peripheral artery disease, GERD, hypertension, bipolar disorder., peripheral Neuropathy from alcoholism. heavy drinking up to 2018. Patient continues to smoke. brother Sotero - legal guardian. Patient has chronic foot wounds for which she follows at the wound care center. Patient does wear special shoes. Follows Dr. Akbar in the wound care center. Patient's brother called the EMS: There found him to be altered. And diaphoretic. No answering questions appropriately. Brother told him that patient's mental status has been declining over the last 3 days. Patient does not remember being brought by the ambulance to the hospital. Does not know why he is here. His brother gases closely. Patient is able to get around his apartment. Also has some home health. Denies any fever and chills. Some pain in the left foot. July 19: Today patient is somewhat acting different. He is awake. But also questioned that don't make sense. I'm stopping his Risperdal and starting him on Risperdal at night. Has had a sitter. A. fib was uncontrolled. Lopressor increased today to 50 mg twice a day. Catapres cutback 2.5 mg 3 times a day. Acidotic. Add sodium bicarbonate drip. Active Medications Hydrocodone Bitart/Acetaminophen (Hydrocodone/Apap 10-325mg 1 Each Tab) 1 each PO Q6H PRN PRN Reason: Pain Last Admin: 07/18/23 17:07 Dose: 1 each Albuterol/Ipratropium (Ipratropium-Albuterol 3 Ml Neb) 3 ml INHALATION RT-TID [facility] Last Admin: 07/19/23 19:57 Dose: Not Given Alprazolam (Alprazolam 0.25 Mg Tab) 0.25 mg PO Q6HR PRN PRN Reason: Anxiety Last Admin: 07/19/23 12:30 Dose: 0.25 mg Calcium Carbonate/Glycine (Calcium Carbonate 500 Mg Chewable) 1,000 mg PO Q4HR PRN PRN Reason: Dyspepsia Citalopram Hydrobromide (Citalopram Hydrobromide 20 Mg Tab) 20 mg PO DAILY [facility] Last Admin: 07/19/23 08:43 Dose: 20 mg Clonazepam (Clonazepam 0.5 Mg Tab) 0.5 mg PO TID PRN PRN Reason: Anxiety Last Admin: 07/19/23 08:43 Dose: 0.5 mg Clonidine (Clonidine Hcl 0.1 Mg Tab) 0.1 mg PO TID [facility] Last Admin: 07/19/23 17:12 Dose: 0.1 mg Famotidine (Famotidine 20 Mg Tab) 20 mg PO HS [facility] Last Admin: 07/18/23 19:51 Dose: 20 mg Gabapentin (Gabapentin 400 Mg Cap) 400 mg PO TID [facility] Last Admin: 07/19/23 17:12 Dose: 400 mg Haloperidol Lactate (Haloperidol Lactate 5 Mg/Ml 1 Ml Vial) 5 mg IVP ONCE PRN PRN Reason: Agitation or Acute Psychosis Last Admin: 07/19/23 22:19 Dose: 5 mg Heparin Sodium/Sodium Chloride (25,000 unit/ Sodium Chloride) 250 mls @ 10 mls/hr IV .Q24H [facility]; Protocol Last Admin: 07/19/23 18:41 Dose: 17.92 units/kg/hr, 15.444 mls/hr Daptomycin 500 mg/ Sodium (Chloride) 50 mls @ 100 mls/hr IVPB Q24HR [facility]; Protocol Last Admin: 07/19/23 17:12 Dose: 100 mls/hr Cefepime HCl 2 gm/ Sodium (Chloride) 100 mls @ 25 mls/hr IVPB Q12H [facility]; Protocol Last Admin: 07/19/23 19:44 Dose: 25 mls/hr Lactulose (Lactulose 20 Gm/30 Ml Cup) 20 gm PO DAILY PRN PRN Reason: Constipation Lisinopril (Lisinopril 10 Mg Tab) 10 mg PO BID [facility] Last Admin: 07/19/23 08:43 Dose: 10 mg Melatonin (Melatonin 3 Mg Tablet) 3 mg PO HS PRN PRN Reason: Insomnia Last Admin: 07/18/23 19:50 Dose: 3 mg Metoprolol Tartrate (Metoprolol Tartrate 50 Mg Tab) 50 mg PO BID [facility] Last Admin: 07/19/23 08:43 Dose: 50 mg Naloxone HCl (Naloxone 0.4 Mg/Ml 1 Ml Vial) 0.2 mg IV Q2M PRN PRN Reason: Opioid Reversal Nicotine (Nicotine 14mg/24hr Patch) 1 patch TRANSDERM DAILY [facility] Last Admin: 07/19/23 08:43 Dose: 1 patch Ondansetron HCl (Ondansetron 4 Mg/2 Ml Vial) 4 mg IVP Q8HR PRN PRN Reason: Nausea And Vomiting Risperidone (Risperidone 2 Mg Tab) 2 mg PO HS [facility] Risperidone (Risperidone 0.5 Mg Tab) 0.5 mg PO DAILY [facility] Past medical history to include: COPD, PAD, foot wounds, GERD, hypertension, bipolar disorder, peripheral neuropathy from alcoholism Social history: Stopped drinking heavy alcohol in 2018. Long-standing smoker currently down to about 56 cigarettes a day. Brother Sotero legal guardian. Lives alone. Has some home help. Family history: Diabetes, vascular disorder, stroke Physical examination: VITAL SIGNS: 98.7, 79, 17, 145/85, 97% room air GENERAL: Sitting up in bed, acting different EYES: Pupils equal. Conjunctiva normal. HEENT: External appearance of nose and ears normal, oral cavity grossly normal. NECK: JVD not raised; masses not palpable. HEART: First and second heart sounds are normal; no edema. LUNGS: Respiratory rate increased; decreased breath sounds. ABDOMEN: Soft, nontender, liver spleen not palpable, no masses palpable. PSYCH: Patient seen question make statements that don't make sense. For example, am i going to retirement MUSCULOSKELETAL:No Clubbing/cyanosis;muscles-grossly intact. Amputation of the fourth and fifth toe on the right to the metatarsal head. Wound in both the feet. Pictures in the nursing chart NEUROLOGICAL: Cranial nerves grossly intact; no facial asymmetry, power grossly intact. Decreased sensation distally. INVESTIGATIONS, reviewed in the clinical context: 07/17/2023: White count 19.4 hemoglobin 14.4 platelets 175 sodium 133 bicarb 14 BUN 17 creatinine 1.85 Troponin I 1.2, 0.372 Urine drug seen positive for benzodiazepine, marijuana EKG tracing personally reviewed by me-atrial fibrillation. Chest x-ray film personally reviewed by me-no obvious infiltrate CT brain: Generalized degenerative changes Previous labs: January 2022: Creatinine 1.5 to Assessment and plan: -Brought in because of mental matter status changes. As per the brother deteriorating for about 3 days. No fever reported. Has infected wounds. Likely delirium/metabolic encephalopathy: Not improving IV fluids. Back Neurontin to 400 mg 3 times a day -Possible psychosis Change trazodone to Risperdal 2 mg at 19.5 mg the morning.. -Bilateral foot , pressure ulcer wounds especially in the plantar aspect deep in a patient with known peripheral artery disease and peripheral neuropathy, underlying Charcot foot: Follows at the wound care center with Dr. Akbar. Vascular consulted. Wound care. ID consulted. -COPD in a current smoker DuoNeb 3 times a day -Chronic nicotine dependence cigarette smoker Nicotine patch 7 -Acute kidney injury likely ATN from underlying infection: Follow labs. IV fluids. -Persistent atrial fibrillation, rate controlled Received IV Cardizem in the ER. IV heparin-changed over to subcu Lovenox twice a day -Metabolic acidosis due to CK D Start sodium bicarbonate drip - chronic kidney disease stage 3 from nephrosclerosis creatinine was 1.52 in January 2022 -GERD Pepcid 20 mg twice a day -Essential Hypertension: Decrease Catapres to her 0.1 mg 3 times a day. Zestril 10 mg twice a day. Lopressor 50 mg twice a day. -Bipolar disorder, psychosis:new diagnosis Stop trazodone Klonopin 0.5 mg 3 times a day-when necessary Celexa 20 mg a day Start Risperdal 2 mg at 19.5 mg a morning. -Painful Peripheral neuropathy secondary to history of alcoholism: Controlled Neurontin 600 mg 3 times a day. Dose was reduced -Charcot foot Cutback Catapres 2.1 mg daily. Lopressor 50 mg twice a day. Increase to 75 mg twice a day tomorrow. Sodium bicarbonate drip. Risperdal 2 mg at night 0.5 mg a morning. Consult psychiatry
[2023-07-19] MEDS: ENOXAPARIN 80 MG/0.8 ML SYRINGE SQ SCH (23:51)
[2023-07-19] MEDS: DEXTROSE 5% IN WATER 1,000 ML with SODIUM BICARB (1 MEQ/ML) 100 ML IV SCH (23:51)
[2023-07-20] MEDS: HYDROcodone/APAP 10-325MG 1 EACH TAB PO PRN ×2 (03:52→22:17)
[2023-07-20] MEDS: IPRATROPIUM-ALBUTEROL 3 ML NEB INHALATION SCH ×3 (08:12→20:55)
[2023-07-20] MEDS: METOPROLOL TARTRATE 50 MG TAB PO SCH (08:36)
[2023-07-20] MEDS: DAPTOmycin 500 MG in SODIUM CHLORIDE 0.9% 50 ML IVPB SCH (08:48)
[2023-07-20] MEDS: clonazePAM 0.5 MG TAB PO PRN (08:49)
[2023-07-20] MEDS: CITALOPRAM HYDROBROMIDE 20 MG TAB PO SCH (08:49)
[2023-07-20] MEDS: cloNIDine HCL 0.1 MG TAB PO SCH (08:49)
[2023-07-20] MEDS: GABAPENTIN 400 MG CAP PO SCH ×3 (08:49→22:19)
[2023-07-20] MEDS: NICOTINE 14MG/24HR PATCH TRANSDERM SCH (08:49)
[2023-07-20] MEDS: lisinopriL 10 MG TAB PO SCH (08:49)
[2023-07-20] MEDS: ENOXAPARIN 80 MG/0.8 ML SYRINGE SQ SCH (08:49)
[2023-07-20] MEDS: CEFEPIME 2 GM in SODIUM CHLORIDE 0.9% 100 ML IVPB SCH ×3 (08:50→23:30)
[2023-07-20] MEDS ORDERED: METOPROLOL TARTRATE 25 MG TAB PO SCH (09:00)
[2023-07-20] MEDS ORDERED: risperiDONE 0.5 MG TAB PO SCH (09:00)
[2023-07-20 09:41] LABS: Basophils % (A) 0 %; Eosinophils # (A) 0.1 k/uL (0-0.7); Eosinophils % (A) 1 %; HCT 32.6 % (39.0-53.0); HGB 11.5 gm/dL (13.0-17.5); Lymphocytes # (A) 0.8 k/uL (1.0-4.8); Lymphocytes % (A) 9 %; MCH 33.1 pg (25.0-35.0); MCHC 35.4 g/dL (31.0-37.0); MCV 93.4 fL (80.0-100.0); Mean Platelet Volume 7.3; Monocytes # (A) 0.5 k/uL (0-1.0); Monocytes % (A) 6 %; Neutrophils # (A) 6.8 k/uL (1.3-7.7); Neutrophils % (A) 82 %; Platelet Count 129 k/uL (150-450); RBC 3.49 m/uL (4.30-5.90); RDW 12.1 % (11.5-15.5); WBC 8.3 k/uL (3.8-10.6)
[2023-07-20 10:00] LABS: African American GFR (CKD) 76 (>60 ml/min/1.73 sqM); Anion Gap 12 mmol/L; Blood Urea Nitrogen 14 mg/dL (9-20); C Reactive Protein 4.5 mg/dL (<1.0); Calcium 9.1 mg/dL (8.4-10.2); Carbon Dioxide 21 mmol/L (22-30); Chloride 105 mmol/L (98-107); Glucose 148 mg/dL (74-99); Non-African American GFR(CKD) 66 (>60 ml/min/1.73 sqM); Potassium 3.5 mmol/L (3.5-5.1); Sodium 138 mmol/L (137-145)
--- NOTE | 2023-07-20 11:44 | P.PN ---
Subjective HISTORY OF PRESENT ILLNESS: This is a 68-year-old male with past medical history of chronic pain, hypertension. Patient presented to the emergency center with confusion and wound on his left foot. Patient was in a sinus rhythm with PACs and PVCs with a run of atrial fibrillation with RVR heart rate up to 208 bpm. Patient converted to sinus rhythm but his altered mental status has stayed unchanged. His troponin came back elevated at 1.2. He was admitted to the hospital for acute non-ST elevated myocardial infarction and nonhealing ulcer of the foot. Urine drug screen was positive for opiates and benzodiazepines and THC. CAT scan of the brain did not show any new abnormalities. Patient is more confused today almost a point of being aggressive. Patient has been started on heparin drip. Cardizem drip was discontinued yesterday. Heart rate is running in the 68-72. Blood pressure 132/67. Echocardiogram reveals EF of 55-60%, mild , mild AR, dilated aortic root. 07/20/2023 Patient examined this morning at the bedside. Patient remains confused. He remains on therapeutic Lovenox. Telemetry reveals sinus mechanism with heart rate in the 70s. Patient's blood pressure elevated this morning with a systolic in the 160s. PHYSICAL EXAM: VITAL SIGNS: Reviewed. GENERAL: Well-developed in no acute distress. NECK: Supple. No JVD or thyromegaly LUNGS: Respirations even and unlabored. Lungs essentially clear to auscultation bilaterally. HEART: Regular rate and rhythm. S1 and S2 heard. EXTREMITIES: Normal range of motion. No clubbing or cyanosis. Peripheral pulses intact. No lower extremity edema ASSESSMENT: Non-ST elevated myocardial infarction New-onset atrial fibrillation with RVR, paroxysmal Acute renal failure Sepsis with possible osteomyelitis, left foot PLAN: Continue current cardiac medications Add amlodipine 10 mg daily for optimal blood pressure control Discontinue Lovenox. Begin Eliquis 5 mg twice a day Add atorvastatin 80 mg at night No plans for cardiac catheterization at this time secondary to patient's altered mental status Further recommendations pending patient's course Nurse practitioner note has been reviewed by physician. Signing provider agrees with the documented findings, assessment, and plan of care. Objective - Vital Signs Vital signs: Vital Signs Temp 98.8 F 07/20/23 08:00 Pulse 70 07/20/23 08:27 Resp 14 07/20/23 08:00 BP 169/88 07/20/23 08:00 Pulse Ox 96 07/20/23 08:14 FiO2 Intake & Output 07/19/23 07/20/23 07/20/23 18:59 06:59 18:59 Intake Total 430 Output Total 250 1300 Balance 180 -1300 Intake: Intake, IV Titration 250 Amount Heparin Sod,Pork in 0.45% 250 NaCl 25,000 unit In 0.45 % NaCl 1 250ml.bag @ 11. 603 UNITS/KG/HR 10 mls/hr IV .Q24H [facility] Rx#: [id number] Oral 180 Output: Urine 250 1300 Other: Voiding Method Toilet Toilet Toilet - Labs CBC & Chem 7: 07/20/23 08:33 07/20/23 08:33 Labs: Abnormal Lab Results - Last 24 Hours (Table) 07/19/23 07/19/23 07/20/23 Range/Units 11:49 20:35 08:33 RBC 3.49 L (4.30-5.90) m/uL Hgb 11.5 L (13.0-17.5) gm/dL Hct 32.6 L (39.0-53.0) % Plt Count 129 L (150-450) k/uL Lymphocytes # 0.8 L (1.0-4.8) k/uL APTT 42.3 H 39.8 H (22.0-30.0) sec Carbon Dioxide (22-30) mmol/L Glucose (74-99) mg/dL C-Reactive Protein (<1.0) mg/dL 07/20/23 Range/Units 08:33 RBC (4.30-5.90) m/uL Hgb (13.0-17.5) gm/dL Hct (39.0-53.0) % Plt Count (150-450) k/uL Lymphocytes # (1.0-4.8) k/uL APTT (22.0-30.0) sec Carbon Dioxide 21 L (22-30) mmol/L Glucose 148 H (74-99) mg/dL C-Reactive Protein 4.5 H (<1.0) mg/dL Microbiology - Last 24 Hours (Table) 07/17/23 11:14 Blood Culture - Preliminary Blood
--- NOTE | 2023-07-20 11:59 | P.PN ---
Subjective Progress Note Date: 07/20/23 Principal diagnosis: Reason for follow-up = Abnormal x-ray left foot and a question of osteomyelitis Patient is a 68-year-old male with a past medical history significant for hypertension hyperlipidemia COPD reflux patient did have a history of osteomyelitis requiring amputation of multiple toes with previous infection with VRE MRSA and Acinetobacter patient was brought into the hospital after apparently the patient was noticed to have mental status changes, workup did include elevated white count and did have abnormal x-ray to the left foot concerning for osteomyelitis. On today's evaluation that is 07/20/2023, the patient continues to be afebrile , the patient is not requiring any supplemental oxygen and is breathing comfortably on room air , the patient denies any chest pain no cough or sputum production, patient denies Abdominal pain and denies any nausea/vomiting/no diarrhea has been reported Patient white count is 8.3, creatinine is 1.15, CRP is 4.5 Objective - Vital Signs Vital signs: Vital Signs Temp 98.8 F 07/20/23 08:00 Pulse 70 07/20/23 08:27 Resp 14 07/20/23 08:00 BP 169/88 07/20/23 08:00 Pulse Ox 96 07/20/23 08:14 FiO2 Intake & Output 07/19/23 07/20/23 07/20/23 18:59 06:59 18:59 Intake Total 430 Output Total 250 1300 Balance 180 -1300 Intake: Intake, IV Titration 250 Amount Heparin Sod,Pork in 0.45% 250 NaCl 25,000 unit In 0.45 % NaCl 1 250ml.bag @ 11. 603 UNITS/KG/HR 10 mls/hr IV .Q24H [facility] Rx#: [id number] Oral 180 Output: Urine 250 1300 Other: Voiding Method Toilet Toilet Toilet - Exam GENERAL DESCRIPTION: An elderly male lying in bed in no distress RESPIRATORY SYSTEM: Unlabored breathing , clear to auscultation anteriorly HEART: S1 S2 regular rate and rhythm , ABDOMEN: Soft , no tenderness EXTREMITIES: Left foot is currently dressed, minimal drainage on the dressing - Labs CBC & Chem 7: 07/20/23 08:33 07/20/23 08:33 Labs: Abnormal Lab Results - Last 24 Hours (Table) 07/19/23 07/19/23 07/20/23 Range/Units 11:49 20:35 08:33 RBC 3.49 L (4.30-5.90) m/uL Hgb 11.5 L (13.0-17.5) gm/dL Hct 32.6 L (39.0-53.0) % Plt Count 129 L (150-450) k/uL Lymphocytes # 0.8 L (1.0-4.8) k/uL APTT 42.3 H 39.8 H (22.0-30.0) sec Carbon Dioxide (22-30) mmol/L Glucose (74-99) mg/dL C-Reactive Protein (<1.0) mg/dL 07/20/23 Range/Units 08:33 RBC (4.30-5.90) m/uL Hgb (13.0-17.5) gm/dL Hct (39.0-53.0) % Plt Count (150-450) k/uL Lymphocytes # (1.0-4.8) k/uL APTT (22.0-30.0) sec Carbon Dioxide 21 L (22-30) mmol/L Glucose 148 H (74-99) mg/dL C-Reactive Protein 4.5 H (<1.0) mg/dL Microbiology - Last 24 Hours (Table) 07/17/23 11:14 Blood Culture - Preliminary Blood Assessment and Plan (1) Abnormal x-ray Current Visit: Yes Status: Acute Code(s): R93.89 - ABNORMAL FINDINGS ON DX IMAGING OF OTH BODY STRUCTURES SNOMED Code(s): 808497456 (2) Foot osteomyelitis, left Current Visit: Yes Status: Acute Code(s): M86.9 - OSTEOMYELITIS, UNSPECIFIED SNOMED Code(s): 4035989844854402 Plan: 1patient presented hospital with mental status changes in this patient with no fever did have elevated white count chest x-ray was negative urine is negative abdominal soft on clinical examination did have a nonhealing wound to the left foot area with abnormal x-ray suspicious for osteomyelitis previously grown VRE MRSA and history of Bactrim 2-blood culture has been obtained so far negative 3Patient will benefit from debridement and deep culture to determine infecting pathogen, bone scan has been ordered results will be followed 4patient continue with cefepime and daptomycin and monitor clinical course closely Dictation was produced using dragon dictation software. please excuse any grammatical, word or spelling errors. Time with Patient: Less than 30
[2023-07-20] MEDS: amLODIPine 10 MG TAB PO SCH (12:06)
[2023-07-20] MEDS: APIXABAN 5 MG TAB PO SCH ×2 (12:06→22:18)
--- NOTE | 2023-07-20 13:45 | P.CN ---
Psychiatric Consult - . Consult date: 07/20/23 Consult:: Corporate Safety Director attempted to see patient today for psychiatric consultation. EMR was reviewed, senior mortgage underwriter spoke with patient's nurse at the bedside. Patient was down receiving a bone scan and rectal when senior mortgage underwriter presented to evaluate patient. Nurse claims that patient received a prn haldol yesterday and slept well and presented much better today and calmer. Will order prn medications for agitation/psychosis. Will attempt to reevaluate tomorrow.
[2023-07-20] MEDS ORDERED: LORazepam 2 MG/ML INJ IM PRN (13:46)
[2023-07-20] MEDS ORDERED: haloperidoL 5 MG TAB PO PRN (13:46)
[2023-07-20] MEDS ORDERED: HALOPERIDOL LACTATE 5 MG/ML 1 ML VIAL IM PRN (13:46)
[2023-07-20] MEDS ORDERED: METOPROLOL TARTRATE 25 MG TAB PO STA (13:53)
[2023-07-20] MEDS ORDERED: lisinopriL 10 MG TAB PO STA (13:53)
--- NOTE | 2023-07-20 13:55 | P.PN ---
Progress Note - Text Progress Note Date: 07/20/23 Chief Complaint: Unwell This is a pleasant 68-year-old patient of Dr. Mustafa. Chronic stable medical conditions include COPD, peripheral artery disease, GERD, hypertension, bipolar disorder., peripheral Neuropathy from alcoholism. heavy drinking up to 2018. Patient continues to smoke. brother Sotero - legal guardian. Patient has chronic foot wounds for which she follows at the wound care center. Patient does wear special shoes. Follows Dr. Akbar in the wound care center. Patient's brother called the EMS: There found him to be altered. And diaphoretic. No answering questions appropriately. Brother told him that patient's mental status has been declining over the last 3 days. Patient does not remember being brought by the ambulance to the hospital. Does not know why he is here. His brother gases closely. Patient is able to get around his apartment. Also has some home health. Denies any fever and chills. Some pain in the left foot. July 19: Today patient is somewhat acting different. He is awake. But also questioned that don't make sense. I'm stopping his Risperdal and starting him on Risperdal at night. Has had a sitter. A. fib was uncontrolled. Lopressor increased today to 50 mg twice a day. Catapres cutback to 0.1 mg 3 times a day. Acidotic. Add sodium bicarbonate drip. July 20: Patient much improved this morning. Back to his normal self. Brother is visiting. Bicarbonate has improved. We'll switch to oral bicarbo matt. Bone scan ordered by ID. Patient eating well. His custom Dr. Arriaga from vascular. He will discuss further with Dr. Coates. Patient currently on IV cefepime and IV daptomycin. Patient seen by psychiatry Dr. Ochoa. Morning dose of Risperdal increased to 1 mg Active Medications Hydrocodone Bitart/Acetaminophen (Hydrocodone/Apap 10-325mg 1 Each Tab) 1 each PO Q6H PRN PRN Reason: Pain Last Admin: 07/20/23 03:52 Dose: 1 each Albuterol/Ipratropium (Ipratropium-Albuterol 3 Ml Neb) 3 ml INHALATION RT-TID [facility] Last Admin: 07/20/23 12:02 Dose: 3 ml Alprazolam (Alprazolam 0.25 Mg Tab) 0.25 mg PO Q6HR PRN PRN Reason: Anxiety Last Admin: 07/19/23 12:30 Dose: 0.25 mg Amlodipine Besylate (Amlodipine 10 Mg Tab) 10 mg PO DAILY [facility] Last Admin: 07/20/23 12:06 Dose: 10 mg Apixaban (Apixaban 5 Mg Tab) 5 mg PO BID [facility]; Protocol Last Admin: 07/20/23 12:06 Dose: 5 mg Atorvastatin Calcium (Atorvastatin 80 Mg Tab) 80 mg PO HS [facility] Calcium Carbonate/Glycine (Calcium Carbonate 500 Mg Chewable) 1,000 mg PO Q4HR PRN PRN Reason: Dyspepsia Citalopram Hydrobromide (Citalopram Hydrobromide 20 Mg Tab) 20 mg PO DAILY [facility] Last Admin: 07/20/23 08:49 Dose: 20 mg Clonazepam (Clonazepam 0.5 Mg Tab) 0.5 mg PO TID PRN PRN Reason: Anxiety Last Admin: 07/20/23 08:49 Dose: 0.5 mg Clonidine (Clonidine Hcl 0.1 Mg Tab) 0.1 mg PO TID [facility] Last Admin: 07/20/23 08:49 Dose: 0.1 mg Famotidine (Famotidine 20 Mg Tab) 20 mg PO HS [facility] Last Admin: 07/19/23 22:27 Dose: Not Given Gabapentin (Gabapentin 400 Mg Cap) 400 mg PO TID [facility] Last Admin: 07/20/23 08:49 Dose: 400 mg Daptomycin 500 mg/ Sodium (Chloride) 50 mls @ 100 mls/hr IVPB Q24HR [facility]; Protocol Last Admin: 07/20/23 08:48 Dose: 100 mls/hr Cefepime HCl 2 gm/ Sodium (Chloride) 100 mls @ 25 mls/hr IVPB Q8HR [facility]; Protocol Lactulose (Lactulose 20 Gm/30 Ml Cup) 20 gm PO DAILY PRN PRN Reason: Constipation Lisinopril (Lisinopril 10 Mg Tab) 10 mg PO BID [facility] Last Admin: 07/20/23 08:49 Dose: 10 mg Melatonin (Melatonin 3 Mg Tablet) 3 mg PO HS PRN PRN Reason: Insomnia Last Admin: 07/18/23 19:50 Dose: 3 mg Metoprolol Tartrate (Metoprolol Tartrate 25 Mg Tab) 75 mg PO BID [facility] Last Admin: 07/20/23 03:49 Dose: 75 mg Naloxone HCl (Naloxone 0.4 Mg/Ml 1 Ml Vial) 0.2 mg IV Q2M PRN PRN Reason: Opioid Reversal Nicotine (Nicotine 14mg/24hr Patch) 1 patch TRANSDERM DAILY [facility] Last Admin: 07/20/23 08:49 Dose: 1 patch Ondansetron HCl (Ondansetron 4 Mg/2 Ml Vial) 4 mg IVP Q8HR PRN PRN Reason: Nausea And Vomiting Risperidone (Risperidone 2 Mg Tab) 2 mg PO HS [facility] Last Admin: 07/19/23 22:28 Dose: Not Given Risperidone (Risperidone 0.5 Mg Tab) 0.5 mg PO DAILY [facility] Last Admin: 07/20/23 12:06 Dose: 0.5 mg Past medical history to include: COPD, PAD, foot wounds, GERD, hypertension, bipolar disorder, peripheral neuropathy from alcoholism Social history: Stopped drinking heavy alcohol in 2018. Long-standing smoker currently down to about 56 cigarettes a day. Brother Sotero legal guardian. Lives alone. Has some home help. Family history: Diabetes, vascular disorder, stroke Physical examination: VITAL SIGNS: 99.8, 76, 16, 150/92, 99% room air GENERAL: Sitting up in bed, cheerful EYES: Pupils equal. Conjunctiva normal. HEENT: External appearance of nose and ears normal, oral cavity grossly normal. NECK: JVD not raised; masses not palpable. HEART: First and second heart sounds are normal; no edema. LUNGS: Respiratory rate increased; decreased breath sounds. ABDOMEN: Soft, nontender, liver spleen not palpable, no masses palpable. PSYCH: Patient able to hold a normal conversation. MUSCULOSKELETAL:No Clubbing/cyanosis;muscles-grossly intact. Amputation of the fourth and fifth toe on the right to the metatarsal head. Wound in both the feet. Pictures in the nursing chart NEUROLOGICAL: Cranial nerves grossly intact; no facial asymmetry, power grossly intact. Decreased sensation distally. INVESTIGATIONS, reviewed in the clinical context: July 20: White count 8.3 hemoglobin 11.5 platelets 129 sodium 138 potassium 3.5 CRP 4.5 07/17/2023: White count 19.4 hemoglobin 14.4 platelets 175 sodium 133 bicarb 14 BUN 17 creatinine 1.85 Troponin I 1.2, 0.372 Urine drug seen positive for benzodiazepine, marijuana EKG tracing personally reviewed by me-atrial fibrillation. Chest x-ray film personally reviewed by me-no obvious infiltrate CT brain: Generalized degenerative changes Previous labs: January 2022: Creatinine 1.5 to Assessment and plan: -Acute delirium/metabolic encephalopathy: He secondary to Neurontin was sitting of acute kidney injury: Improved IV fluids. Decrease Neurontin to 400 mg 3 times a day -Possible psychosis: Improved Change trazodone changed over to Risperdal 2 mg at night and is 1 mg the mornin g.. Seen by psychiatry -Bilateral foot , pressure ulcer wounds especially in the plantar aspect deep in a patient with known peripheral artery disease and peripheral neuropathy, underlying Charcot foot: Follows at the wound care center with Dr. Akbar. Vascular consulted. Wound care. ID consulted. Bone scan ordered by ID IV daptomycin and IV cefepime -COPD in a current smoker DuoNeb 3 times a day -Chronic nicotine dependence cigarette smoker Nicotine patch 7 -Acute kidney injury likely ATN from underlying infection: Improved Follow labs. IV fluids. -Persistent atrial fibrillation, rate controlled Received IV Cardizem in the ER. IV heparin-changed over to subcu Lovenox twice a day-discontinued Started on eliquis today -Metabolic acidosis due to CK D: Improved Start sodium bicarbonate drip-changed to oral bicarbonate - chronic kidney disease stage 3 from nephrosclerosis creatinine was 1.52 in January 2022 -GERD Pepcid 20 mg twice a day -Essential Hypertension: : Uncontrolled Stop Catapres Change Zestril to Zestoretic 20/12.5 twice a day Increase Lopressor 100 mg twice a day. Amlodipine 10 mg a day -Bipolar disorder, psychosis:new diagnosis Stop trazodone Klonopin 0.5 mg 3 times a day-when necessary Celexa 20 mg a day Started on Risperdal 2 mg at night and 1 mg in the morning -Painful Peripheral neuropathy secondary to history of alcoholism: Controlled Neurontin 400 mg 3 times a day. Dose was reduced -Charcot foot DC Zestril. Start Zestoretic 20/12.5 twice a day. Increase Lopressor 100 mg twice a day. Stop Catapres. Amlodipine added today. Follow with vascular ID.
--- NOTE | 2023-07-20 14:08 | NM ---
EXAMINATION TYPE: NM bone 3 phase DATE OF EXAM: 07/20/2023 COMPARISON: NONE CLINICAL INDICATION: Male, 68 years old with history of Foot wound and abnormal x-ray; Triple phase bone scintigraphy was performed following the injection of 24 mCi Tc 99m MDP. Immediate images and 5.5 hours post injection images acquired. FINDINGS: On both the Angiographic and blood pool portions of the examination there is increased radiotracer ac cumulation involving the medial left sided metatarsal phalangeal joints. On the delayed images there is intense radiotracer accumulation noted bilaterally at the metatarsal phalangeal joints. Is also up take about the plantar aspect of the left os calcis. IMPRESSION: Findings may reflect chronic osteomyelitis involving the medial metatarsal phalangeal russ nts on the left. Correlate clinically and consider WBC scan if felt clinically indicated.
[2023-07-20] MEDS: DEXTROSE 5% IN WATER 1,000 ML with SODIUM BICARB (1 MEQ/ML) 100 ML IV SCH (15:46)
[2023-07-20] MEDS: SODIUM BICARBONATE TAB 650 MG TAB PO SCH ×2 (15:55→22:19)
[2023-07-20] MEDS ORDERED: METOPROLOL TARTRATE 50 MG TAB PO SCH (21:00)
[2023-07-20] MEDS: FAMOTIDINE 20 MG TAB PO SCH (22:19)
[2023-07-20] MEDS: risperiDONE 2 MG TAB PO SCH (22:19)
[2023-07-20] MEDS: LISINOPRIL-HCTZ 20-12.5 MG 1 EACH TAB PO SCH (22:19)
[2023-07-20] MEDS: ATORVASTATIN 80 MG TAB PO SCH (22:19)
--- NOTE | 2023-07-20 23:19 | OP ---
OPERATIVE REPORT DATE OF SERVICE : PREOPERATIVE DIAGNOSIS: Chronic wound, left foot, plantar aspect with callus formation measurement is 2 x 0.5 cm. POSTOPERATIVE DIAGNOSIS: Chronic wound, left foot, plantar aspect with callus formation measurement is 2 x 0.5 x 1 cm. DESCRIPTION OF PROCEDURE: This patient has an infected callus on the plantar aspect of the left foot. X-ray shows chronic left foot, chronic. Left foot was prepped, 1% lidocaine was sprayed to the left foot wound. Using sharp knife, we excised the callus along with the devitalized tissue down to the subcutaneous tissue, fat and fascia. The tissue was sent for deep culture. No active bleeding was noted. Wound was irrigated with saline. MediHoney gel applied to the wound. Pressure dressing applied. Dressing should be changed of the left foot on daily basis and using MediHoney gel, pressure dressing applied. The patient tolerated the procedure well. MMODL / IJN: [id number] /
[2023-07-21 03:32] LABS: Erythrocyte Sedimentation Rate 26 mm/Hr (0-20)
[2023-07-21] MEDS: IPRATROPIUM-ALBUTEROL 3 ML NEB INHALATION SCH ×3 (07:44→20:54)
[2023-07-21] MEDS: NICOTINE 14MG/24HR PATCH TRANSDERM SCH (09:17)
[2023-07-21] MEDS: CEFEPIME 2 GM in SODIUM CHLORIDE 0.9% 100 ML IVPB SCH (09:18)
[2023-07-21] MEDS: DAPTOmycin 500 MG in SODIUM CHLORIDE 0.9% 50 ML IVPB SCH (09:18)
[2023-07-21] MEDS: HYDROcodone/APAP 10-325MG 1 EACH TAB PO PRN ×2 (09:19→21:09)
[2023-07-21] MEDS: CITALOPRAM HYDROBROMIDE 20 MG TAB PO SCH (09:19)
[2023-07-21] MEDS: METOPROLOL SUCCINATE (ER) 100 MG TAB.ER.24H PO SCH (09:19)
[2023-07-21] MEDS: risperiDONE 1 MG TAB PO SCH (09:19)
[2023-07-21] MEDS: GABAPENTIN 400 MG CAP PO SCH ×3 (09:19→21:09)
[2023-07-21] MEDS: APIXABAN 5 MG TAB PO SCH ×2 (09:20→21:09)
[2023-07-21] MEDS: amLODIPine 10 MG TAB PO SCH (09:20)
[2023-07-21] MEDS: SODIUM BICARBONATE TAB 650 MG TAB PO SCH ×3 (09:21→21:09)
[2023-07-21] MEDS: LISINOPRIL-HCTZ 20-12.5 MG 1 EACH TAB PO SCH ×2 (09:21→21:11)
--- NOTE | 2023-07-21 11:23 | P.PN ---
Subjective HISTORY OF PRESENT ILLNESS: This is a 68-year-old male with past medical history of chronic pain, hypertension. Patient presented to the emergency center with confusion and wound on his left foot. Patient was in a sinus rhythm with PACs and PVCs with a run of atrial fibrillation with RVR heart rate up to 208 bpm. Patient converted to sinus rhythm but his altered mental status has stayed unchanged. His troponin came back elevated at 1.2. He was admitted to the hospital for acute non-ST elevated myocardial infarction and nonhealing ulcer of the foot. Urine drug screen was positive for opiates and benzodiazepines and THC. CAT scan of the brain did not show any new abnormalities. Patient is more confused today almost a point of being aggressive. Patient has been started on heparin drip. Cardizem drip was discontinued yesterday. Heart rate is running in the 68-72. Blood pressure 132/67. Echocardiogram reveals EF of 55-60%, mild , mild AR, dilated aortic root. 07/20/2023 Patient examined this morning at the bedside. Patient remains confused. He remains on therapeutic Lovenox. Telemetry reveals sinus mechanism with heart rate in the 70s. Patient's blood pressure elevated this morning with a systolic in the 160s. 07/21/2023 Patient examined this morning at the bedside. He denies chest pain or pressure. He denies shortness of breath. Patient's blood pressure remains mildly elevated this morning with a systolic in the 160s. Telemetry reveals sinus mechanism with PACs. PHYSICAL EXAM: VITAL SIGNS: Reviewed. GENERAL: Well-developed in no acute distress. NECK: Supple. No JVD or thyromegaly LUNGS: Respirations even and unlabored. Lungs essentially clear to auscultation bilaterally. HEART: Regular rate and rhythm. S1 and S2 heard. EXTREMITIES: Normal range of motion. No clubbing or cyanosis. Peripheral pulses intact. No lower extremity edema ASSESSMENT: Non-ST elevated myocardial infarction New-onset atrial fibrillation with RVR, paroxysmal Acute renal failure Sepsis with possible osteomyelitis, left foot PLAN: Continue current cardiac medications Continue Eliquis Change beta steven to metoprolol succinate 150 mg daily Patient will require cardiac catheterization this admission secondary to non- STEMI. We'll plan for cardiac catheterization or Thursday pending labeling strategist availability/scheduling. Further recommendations pending patient's course Nurse practitioner note has been reviewed by physician. Signing provider agrees with the documented findings, assessment, and plan of care. Objective - Vital Signs Vital signs: Vital Signs Temp 99.0 F 07/21/23 02:00 Pulse 70 07/21/23 07:54 Resp 16 07/21/23 03:55 BP 164/83 07/21/23 03:55 Pulse Ox 99 07/21/23 07:47 FiO2 Intake & Output 07/20/23 07/21/23 07/21/23 18:59 06:59 18:59 Intake Total 2290 1080 240 Output Total 700 Balance 2290 380 240 Intake: Intake, IV Titration 1050 Amount Cefepime 2 gm In Sodium 200 Chloride 0.9% 100 ml @ 25 mls/hr IVPB Q8HR [facility] Rx# :[id number] DAPTOmycin 500 mg In 50 Sodium Chloride 0.9% 50 ml @ 100 mls/hr IVPB Q24HR [facility] Rx#:[id number] Dextrose 5% in Water 1, 800 000 ml @ 100 mls/hr IV . Q11H [facility] with Sodium Bicarb (1 Meq/ml) 100 ml Rx#:[id number] Oral 1240 1080 240 Output: Urine 700 Other: Voiding Method Toilet Urinal - Labs CBC & Chem 7: 07/20/23 08:33 07/20/23 08:33 Labs: Abnormal Lab Results - Last 24 Hours (Table) 07/20/23 Range/Units 08:33 ESR 26 H (0-20) mm/Hr Microbiology - Last 24 Hours (Table) 07/17/23 11:14 Blood Culture - Preliminary Blood
--- NOTE | 2023-07-21 13:46 | P.PN ---
Subjective Progress Note Date: 07/21/23 Principal diagnosis: Reason for follow-up = Abnormal x-ray left foot and a question of osteomyelitis Patient is a 68-year-old male with a past medical history significant for hypertension hyperlipidemia COPD reflux patient did have a history of osteomyelitis requiring amputation of multiple toes with previous infection with VRE MRSA and Acinetobacter patient was brought into the hospital after apparently the patient was noticed to have mental status changes, workup did include elevated white count and did have abnormal x-ray to the left foot concerning for osteomyelitis. Patient did have a debridement of the wound by vascular surgery did not mention any extension down to the bone On today's evaluation that is 07/21/2023, the patient remains to be afebrile , t he patient is breathing comfortably on room air , the patient denies chest pain shortness of breath or cough , patient denies nausea/vomiting/ diarrhea and no abdominal pain, patient denies pain to his foot wound area Patient white count is 8.3, creatinine is 1.15 as of yesterday, patient did have a sed rate of 26, CRP is 4.5, bone scan and consult for possible chronic osteo- Objective - Vital Signs Vital signs: Vital Signs Temp 96.8 F L 07/21/23 08:50 Pulse 86 07/21/23 11:43 Resp 16 07/21/23 08:50 BP 193/88 07/21/23 08:50 Pulse Ox 96 07/21/23 08:50 FiO2 Intake & Output 07/20/23 07/21/23 07/21/23 18:59 06:59 18:59 Intake Total 2290 1080 240 Output Total 700 Balance 2290 380 240 Intake: Intake, IV Titration 1050 Amount Cefepime 2 gm In Sodium 200 Chloride 0.9% 100 ml @ 25 mls/hr IVPB Q8HR [facility] Rx# :[id number] DAPTOmycin 500 mg In 50 Sodium Chloride 0.9% 50 ml @ 100 mls/hr IVPB Q24HR [facility] Rx#:[id number] Dextrose 5% in Water 1, 800 000 ml @ 100 mls/hr IV . Q11H [facility] with Sodium Bicarb (1 Meq/ml) 100 ml Rx#:[id number] Oral 1240 1080 240 Output: Urine 700 Other: Voiding Method Toilet Urinal Urinal - Exam GENERAL DESCRIPTION: An elderly male lying in bed in no distress RESPIRATORY SYSTEM: Unlabored breathing , clear to auscultation anteriorly HEART: S1 S2 regular rate and rhythm , ABDOMEN: Soft , no tenderness EXTREMITIES: Left foot is currently dressed, minimal drainage on the dressing - Labs CBC & Chem 7: 07/20/23 08:33 07/20/23 08:33 Labs: Abnormal Lab Results - Last 24 Hours (Table) 07/20/23 Range/Units 08:33 ESR 26 H (0-20) mm/Hr Microbiology - Last 24 Hours (Table) 07/17/23 11:14 Blood Culture - Preliminary Blood Assessment and Plan (1) Abnormal x-ray Current Visit: Yes Status: Acute Code(s): R93.89 - ABNORMAL FINDINGS ON DX IMAGING OF OTH BODY STRUCTURES SNOMED Code(s): 070546297 (2) Foot osteomyelitis, left Current Visit: Yes Status: Acute Code(s): M86.9 - OSTEOMYELITIS, UNSPECIFIED SNOMED Code(s): 5124515737345746 Plan: 1patient presented hospital with mental status changes in this patient with no fever did have elevated white count chest x-ray was negative urine is negative abdominal soft on clinical examination did have a nonhealing wound to the left foot area with abnormal x-ray suspicious for osteomyelitis previously grown VRE MRSA and history of Bactrim 2-blood culture has been obtained so far negative 3Patient did have debridement of the wound and per surgical note no mention of the wound extending down to the bone patient did have a sed rate of only 26 bone scan with possible chronic Osteomyelitis clinically not behaving as acute osteomyelitis, antibiotic skin be safely discontinued and the patient will monitor off antibiotic therapy and close in outpatient setting this was discussed with the admitting team working on discharge Dictation was produced using [employer] dictation software. please excuse any grammatical, word or spelling errors. Time with Patient: Less than 30
[2023-07-21] MEDS ORDERED: NITROGLYCERIN SL TABS 0.4 MG TAB SUBLINGUAL PRN (14:27)
[2023-07-21] MEDS ORDERED: ALPRAZolam 0.25 MG TAB PO PRN (14:27)
[2023-07-21] MEDS ORDERED: ALPRAZolam 0.5 MG TAB PO PRN (14:27)
--- NOTE | 2023-07-21 14:42 | P.CN ---
Psychiatric Consult - . Consult date: 07/21/23 Consult:: 07/21/23 13:43 IDENTIFYING DATA: This patient is a 68-year-old male, currently lives alone in an apartment, he has a guardian, he is single, he has no kids. He is collecting SSD. REASON FOR REFERRAL: Psychiatry was consulted for psychiatric evaluation HISTORY OF PRESENT ILLNESS: The patient presented to the hospital on 07/17 for altered mental status and confusion. Patient apparently was found to have a foot wound and osteomyelitis, he has been followed by infectious disease and placed on antibiotics and having wound care. Patient also had acute kidney injury. Patient apparently was fairly bizarre, altered and aggressive however after receiving when necessary of antipsychotic a couple of days ago, patient is able to calm down. Roll Repairer attempted to see patient yesterday however was down doing a bone scan. Nursing care patient today states the patient has been doing fairly well and plan will be to discharge patient to rehab. Patient was seen today eating his lunch, he was agreeable stridor. He states that he was having "foot pain" on his left foot. He states that he has wounds that has been going to the wound clinic for the past several weeks and states that he goes about every 3 weeks. He claims that he has a history of peripheral neuropathy in his feet. He states that the infection was worse when he came in. He claims that he was fairly confused. Claims that he is doing better now, he was fairly calm and appropriate during conversation. States that he does not have any depression or anxiety design. Claims his sleep is fair, he claims that he is eating better at this time. Today . At this time patient denies any suicidal or homical ideations, intent or plan. Patient denies any auditory, visual hallucinations and denies any paranoia or delusions. Patients admits to using cigarettes only, denies any other recreational drug use. PAST PSYCHIATRIC HISTORY: Patient has an unknown psychiatric history. Patient apparently was on Celexa 20 mg daily. Also on Klonopin 3 times a day when necessary and trazodone. Patient denies any previous psychiatric hospitalizations. Patient denies any psychiatric outpatient follow-up. Patient denies any history of suicide attempts in the past. Past Medical History: COPD, GERD/Reflux, Hyperlipidemia, Hypertension, Pneumonia, Skin Disorder, Vascular Disorder Additional Past Medical History / Comment(s): ETOH abuse, DT's, pancreatitis, chronic pain, PVD, PAD, neuropathy bilateral legs/feet and hands, past nonhealing wounds bilateral feet-past wound care center, 2007 osteomylitis L foot, chronic pain bilateral feet/legs and upper back-pt states he had thoracic vertebrae injury in past, peptic ulcer with surgery, psoriasis, sinus problems, past L clavicular fracture, acute renal failure, electrolyte disturbance. History of Any Multi-Drug Resistant Organisms: MRSA, VRE Date of last positivie culture/infection: 01/21/22 MRSA & VRE MDRO Source:: RIGHT Foot Past Surgical History: Orthopedic Surgery Additional Past Surgical History / Comment(s): Amputation of the fourth and fifth toes on the right through the metatarsal heads, multiple I&D to nonhealing wounds on the R foot, repair of perforated ucler of stomach, EGD/colonoscopy, PICC lines in and out. Past Anesthesia/Blood Transfusion Reactions: Motion Sickness Additional Past Anesthesia/Blood Transfusion Reaction / Comment(s): claustrophobia Past Psychological History: ADD/ADHD, Anxiety, Depression Smoking Status: Current every day smoker Past Alcohol Use History: Unable to Obtain Past Drug Use History: Unable to Obtain ALLERGIES: as per EMR. CHEMICAL DEPENDENCY HISTORY: as per HPI. FAMILY PSYCHIATRIC/SUBSTANCE USE HISTORY: denies SOCIAL HISTORY: Patient was born and raised in [facility]. He claims that he currently lives alone in apartment,, he has a guardian, is single, he is no kids. He collects SSD. Patient claims that he moved around a lot growing up was difficult part of the country and also the world. He states that he was in an [employer] family. He claims that he did some college and completed high school. 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 Denies any legal history. MENTAL STATUS EXAM: General Appearance: Patient appears to be thin, unkempt appearance, long hair and weeks. Older than stated age is alert, pleasant, and cooperative. Patient appears to have fair hygiene and grooming wearing hospital gown with fair eye contact. Behavior: Patient is calmly lying in bed without any agitated behavior. Appropriate and attempts to cooperate Speech: Patient's speech is fluent and nonpressured. [place] Mood/Affect: Patient reports their mood is "alright]", affect is congruent and constricted Suicidality/Homicidality: Patient denies having any suicidal or homicidal ideation intent or plan. Perceptions: Patient denies any visual hallucinations and denies any auditory hallucinations Though content/process: There is no evidence of any delusional thought content and thought process is linear and goal-directed. [place] Memory and concentration: AOX3, grossly intact for the purposes of this session. Can spell "WORLD" backwards Judgment and insight: Limited IMPRESSIONS: Delirium, likely secondary to toxic metabolic, infection History of depression and anxiety Nicotine dependence PLAN: -At this time patient DOES NOT meet criteria for inpatient psychiatric admission. -Delirium precautions recommended with patient including - avoiding use of narcotics and PENAL OFFICER sedatives, limit anticholinergic medications when possible, frequent re-orientation, minimize use of restraints, open window shades during the day and close them at night -Would recommend the following medication changes/additions: Can continue with current psychiatric medications as prescribed, Risperdal 1 mg daily +2 mg daily at bedtime for delirium/mood stabilization/psychosis, Celexa 20 mg daily for mood/anxiety -health worker to provide patient with outpatient mental health/psychiatry resources for appropriate follow up upon discharge -health worker to provide patient substance use treatment resources including AA/NA meetings in the community. -Communicated plan to patient's nurse -Psychiatry will sign off at this time -Please contact with any questions. 07/21/23 14:37
--- NOTE | 2023-07-21 17:17 | P.PN ---
Progress Note - Text Progress Note Date: 07/21/23 Chief Complaint: Unwell This is a pleasant 68-year-old patient of Dr. Mustafa. Chronic stable medical conditions include COPD, peripheral artery disease, GERD, hypertension, bipolar disorder., peripheral Neuropathy from alcoholism. heavy drinking up to 2018. Patient continues to smoke. brother Sotero - legal guardian. Patient has chronic foot wounds for which she follows at the wound care center. Patient does wear special shoes. Follows Dr. Akbar in the wound care center. Patient's brother called the EMS: There found him to be altered. And diaphoretic. No answering questions appropriately. Brother told him that patient's mental status has been declining over the last 3 days. Patient does not remember being brought by the ambulance to the hospital. Does not know why he is here. His brother gases closely. Patient is able to get around his apartment. Also has some home health. Denies any fever and chills. Some pain in the left foot. July 19: Today patient is somewhat acting different. He is awake. But also questioned that don't make sense. I'm stopping his Risperdal and starting him on Risperdal at night. Has had a sitter. A. fib was uncontrolled. Lopressor increased today to 50 mg twice a day. Catapres cutback to 0.1 mg 3 times a day. Acidotic. Add sodium bicarbonate drip. July 20: Patient much improved this morning. Back to his normal self. Brother is visiting. Bicarbonate has improved. We'll switch to oral bicarbo matt. Bone scan ordered by ID. Patient eating well. His custom Dr. Arriaga from vascular. He will discuss further with Dr. Coates. Patient currently on IV cefepime and IV daptomycin. Patient seen by psychiatry Dr. Ochoa. Morning dose of Risperdal increased to 1 mg July 21: Left foot wound was debrided by Dr. Arriaga yesterday. Slater to be infected callus. I discussed with Dr. Sánchez from ID. He feels the changes are chronic. Discontinue antibiotics. Otherwise patient is doing much better. Renal function is normalized. Cardiac she has scheduled a cardiac catheterization on . Slater patient has acute non-Q wave IA. Active Medications Hydrocodone Bitart/Acetaminophen (Hydrocodone/Apap 10-325mg 1 Each Tab) 1 each PO Q6H PRN PRN Reason: Pain Last Admin: 07/20/23 03:52 Dose: 1 each Albuterol/Ipratropium (Ipratropium-Albuterol 3 Ml Neb) 3 ml INHALATION RT-TID [facility] Last Admin: 07/20/23 12:02 Dose: 3 ml Alprazolam (Alprazolam 0.25 Mg Tab) 0.25 mg PO Q6HR PRN PRN Reason: Anxiety Last Admin: 07/19/23 12:30 Dose: 0.25 mg Amlodipine Besylate (Amlodipine 10 Mg Tab) 10 mg PO DAILY [facility] Last Admin: 07/20/23 12:06 Dose: 10 mg Apixaban (Apixaban 5 Mg Tab) 5 mg PO BID [facility]; Protocol Last Admin: 07/20/23 12:06 Dose: 5 mg Atorvastatin Calcium (Atorvastatin 80 Mg Tab) 80 mg PO HS [facility] Calcium Carbonate/Glycine (Calcium Carbonate 500 Mg Chewable) 1,000 mg PO Q4HR PRN PRN Reason: Dyspepsia Citalopram Hydrobromide (Citalopram Hydrobromide 20 Mg Tab) 20 mg PO DAILY [facility] Last Admin: 07/20/23 08:49 Dose: 20 mg Clonazepam (Clonazepam 0.5 Mg Tab) 0.5 mg PO TID PRN PRN Reason: Anxiety Last Admin: 07/20/23 08:49 Dose: 0.5 mg Clonidine (Clonidine Hcl 0.1 Mg Tab) 0.1 mg PO TID [facility] Last Admin: 07/20/23 08:49 Dose: 0.1 mg Famotidine (Famotidine 20 Mg Tab) 20 mg PO HS [facility] Last Admin: 07/19/23 22:27 Dose: Not Given Gabapentin (Gabapentin 400 Mg Cap) 400 mg PO TID [facility] Last Admin: 07/20/23 08:49 Dose: 400 mg Daptomycin 500 mg/ Sodium (Chloride) 50 mls @ 100 mls/hr IVPB Q24HR [facility]; Protocol Last Admin: 07/20/23 08:48 Dose: 100 mls/hr Cefepime HCl 2 gm/ Sodium (Chloride) 100 mls @ 25 mls/hr IVPB Q8HR [facility]; Protocol Lactulose (Lactulose 20 Gm/30 Ml Cup) 20 gm PO DAILY PRN PRN Reason: Constipation Lisinopril (Lisinopril 10 Mg Tab) 10 mg PO BID [facility] Last Admin: 07/20/23 08:49 Dose: 10 mg Melatonin (Melatonin 3 Mg Tablet) 3 mg PO HS PRN PRN Reason: Insomnia Last Admin: 07/18/23 19:50 Dose: 3 mg Metoprolol Tartrate (Metoprolol Tartrate 25 Mg Tab) 75 mg PO BID [facility] Last Admin: 07/20/23 03:49 Dose: 75 mg Naloxone HCl (Naloxone 0.4 Mg/Ml 1 Ml Vial) 0.2 mg IV Q2M PRN PRN Reason: Opioid Reversal Nicotine (Nicotine 14mg/24hr Patch) 1 patch TRANSDERM DAILY [facility] Last Admin: 07/20/23 08:49 Dose: 1 patch Ondansetron HCl (Ondansetron 4 Mg/2 Ml Vial) 4 mg IVP Q8HR PRN PRN Reason: Nausea And Vomiting Risperidone (Risperidone 2 Mg Tab) 2 mg PO HS [facility] Last Admin: 07/19/23 22:28 Dose: Not Given Risperidone (Risperidone 0.5 Mg Tab) 0.5 mg PO DAILY [facility] Last Admin: 07/20/23 12:06 Dose: 0.5 mg Past medical history to include: COPD, PAD, foot wounds, GERD, hypertension, bipolar disorder, peripheral neuropathy from alcoholism Social history: Stopped drinking heavy alcohol in 2018. Long-standing smoker currently down to about 56 cigarettes a day. Brother Sotero legal guardian. Lives alone. Has some home help. Family history: Diabetes, vascular disorder, stroke Physical examination: VITAL SIGNS: 97.5, 84, 16, 136/78, 97% room air GENERAL: Sitting up in bed, comfortable EYES: Pupils equal. Conjunctiva normal. HEENT: External appearance of nose and ears normal, oral cavity grossly normal. NECK: JVD not raised; masses not palpable. HEART: First and second heart sounds are normal; no edema. LUNGS: Respiratory rate increased; decreased breath sounds. ABDOMEN: Soft, nontender, liver spleen not palpable, no masses palpable. PSYCH: Able to answer questions appropriately MUSCULOSKELETAL:No Clubbing/cyanosis;muscles-grossly intact. Amputation of the fourth and fifth toe on the right to the metatarsal head. Wound in both the feet. Pictures in the nursing chart NEUROLOGICAL: Cranial nerves grossly intact; no facial asymmetry, power grossly intact. Decreased sensation distally. INVESTIGATIONS, reviewed in the clinical context: July 20: White count 8.3 hemoglobin 11.5 platelets 129 sodium 138 potassium 3.5 CRP 4.5 07/17/2023: White count 19.4 hemoglobin 14.4 platelets 175 sodium 133 bicarb 14 BUN 17 creatinine 1.85 Troponin I 1.2, 0.372 Urine drug seen positive for benzodiazepine, marijuana EKG tracing personally reviewed by me-atrial fibrillation. Chest x-ray film personally reviewed by me-no obvious infiltrate CT brain: Generalized degenerative changes Previous labs: January 2022: Creatinine 1.5 to Assessment and plan: -Acute delirium/metabolic encephalopathy: He secondary to Neurontin was sitting of acute kidney injury: Improved IV fluids. Decreased Neurontin to 400 mg 3 times a day -Possible psychosis: Improved Change trazodone changed over to Risperdal 2 mg at night and is 1 mg the morning.. Seen by psychiatry -Bilateral foot , pressure ulcer wounds especially in the plantar aspect deep in a patient with known peripheral artery disease and peripheral neuropathy, underlying Charcot foot: Changes felt to be chronic. Follows at the wound care center with Dr. Akbar. Vascular consulted. Wound care. ID consulted. Bone scan ordered by ID IV daptomycin and IV cefepime, being discontinued after discussion with ID. Wound debrided by Dr. Arriaga on July 20. -COPD in a current smoker DuoNeb 3 times a day -Chronic nicotine dependence cigarette smoker Nicotine patch 7 -Acute kidney injury likely ATN from underlying infection: Improved Follow labs. IV fluids. -Persistent atrial fibrillation, rate controlled Received IV Cardizem in the ER. IV heparin-changed over to subcu Lovenox twice a day-discontinued Eliquis held. Patient changed to IV heparin in view of cardiac catheterization -Metabolic acidosis due to CK D: Improved Start sodium bicarbonate drip-changed to oral bicarbonate - chronic kidney disease stage 3 from nephrosclerosis creatinine was 1.52 in January 2022 -GERD Pepcid 20 mg twice a day -Essential Hypertension: : Uncontrolled Stop Catapres Zestoretic 20/12.5 twice a day . Amlodipine 10 mg daily at bedtime Toprol-XL 150 mg a day -Bipolar disorder, psychosis:new diagnosis Stop trazodone Klonopin 0.5 mg 3 times a day-when necessary Celexa 20 mg a day Started on Risperdal 2 mg at night and 1 mg in the morning -Painful Peripheral neuropathy secondary to history of alcoholism: Controlled Neurontin 400 mg 3 times a day. Dose was reduced -Charcot foot Medications reviewed. Patient is for a cardiac catheterization on with Dr. Carolina Fleming. Antibiotics discontinued after discussion with ID. No osteomyelitis. Also discussed with social insurance adviser caseworker.
[2023-07-21] MEDS ORDERED: amLODIPine 2.5 MG TAB PO SCH (21:00)
[2023-07-21] MEDS: ATORVASTATIN 80 MG TAB PO SCH (21:09)
[2023-07-21] MEDS: FAMOTIDINE 20 MG TAB PO SCH (21:09)
[2023-07-21] MEDS: risperiDONE 2 MG TAB PO SCH (21:11)
[2023-07-21] MEDS: MELATONIN 3 MG TABLET PO PRN (21:18)
[2023-07-22] MEDS ORDERED: HEPARIN SODIUM,PORCINE 10,000 UNIT in SODIUM CHLORIDE 0.9% 1,000 ML IRRIGATION PRN (07:00)
[2023-07-22] MEDS ORDERED: HEPARIN SODIUM,PORCINE (1 ML) 2,500 UNIT in SODIUM CHLORIDE 0.9% 250 ML IRRIGATION PRN (07:00)
[2023-07-22] MEDS: IPRATROPIUM-ALBUTEROL 3 ML NEB INHALATION SCH ×3 (07:37→21:18)
[2023-07-22] MEDS: NICOTINE 14MG/24HR PATCH TRANSDERM SCH (08:40)
[2023-07-22] MEDS: APIXABAN 5 MG TAB PO SCH ×2 (08:41→12:37)
[2023-07-22] MEDS: METOPROLOL SUCCINATE (ER) 100 MG TAB.ER.24H PO SCH (08:42)
[2023-07-22] MEDS: GABAPENTIN 400 MG CAP PO SCH ×3 (08:42→21:57)
[2023-07-22] MEDS: CITALOPRAM HYDROBROMIDE 20 MG TAB PO SCH (08:42)
[2023-07-22] MEDS: risperiDONE 1 MG TAB PO SCH (08:42)
[2023-07-22] MEDS: LISINOPRIL-HCTZ 20-12.5 MG 1 EACH TAB PO SCH ×2 (08:43→21:58)
[2023-07-22] MEDS: SODIUM BICARBONATE TAB 650 MG TAB PO SCH ×3 (08:43→21:58)
[2023-07-22] MEDS: HYDROcodone/APAP 10-325MG 1 EACH TAB PO PRN ×3 (08:53→23:04)
--- NOTE | 2023-07-22 11:46 | P.PN ---
Subjective Progress Note Date: 07/22/23 Principal diagnosis: Reason for follow-up = Abnormal x-ray left foot and a question of osteomyelitis Patient is a 68-year-old male with a past medical history significant for hypertension hyperlipidemia COPD reflux patient did have a history of osteomyelitis requiring amputation of multiple toes with previous infection with VRE MRSA and Acinetobacter patient was brought into the hospital after apparently the patient was noticed to have mental status changes, workup did include elevated white count and did have abnormal x-ray to the left foot concerning for osteomyelitis. Patient did have a debridement of the wound by vascular surgery did not mention any extension down to the bone On today's evaluation that is 07/22/2023, the patient continues to be afebrile , the patient is breathing comfortably on room air and no need for supplemental oxygen, the patient denies chest pain shortness of breath or cough , patient denies nausea/vomiting, no abdominal pain and no diarrhea has been reported by the nursing staff, patient denies pain to his foot wound area Patient white count is 8.3, creatinine is 1.15 as of 07/20/2023, no lab draw today, patient did have a sed rate of 26, CRP is 4.5, bone scan and consult for possible chronic osteo- Objective - Vital Signs Vital signs: Vital Signs Temp 99.1 F 07/22/23 02:00 Pulse 74 07/22/23 07:49 Resp 17 07/22/23 02:00 BP 139/79 07/22/23 02:00 Pulse Ox 99 07/22/23 07:37 FiO2 Intake & Output 07/21/23 07/22/23 07/22/23 18:59 06:59 18:59 Intake Total 465 180 Output Total 450 1150 Balance 15 -1150 180 Intake: Oral 465 180 Output: Urine 450 1150 Other: Voiding Method Urinal Urinal - Exam GENERAL DESCRIPTION: An elderly male lying in bed in no distress RESPIRATORY SYSTEM: Unlabored breathing , clear to auscultation anteriorly HEART: S1 S2 regular rate and rhythm , ABDOMEN: Soft , no tenderness EXTREMITIES: Left foot is currently dressed, no drainage on the dressing - Labs CBC & Chem 7: 07/20/23 08:33 07/20/23 08:33 Labs: Abnormal Lab Results - Last 24 Hours (Table) 07/21/23 Range/Units 08:02 Procalcitonin 0.15 H (0.02-0.09) ng/mL Microbiology - Last 24 Hours (Table) 07/20/23 12:30 Gram Stain - Preliminary Foot - Left Tissue Culture - Preliminary Gram Neg Bacilli Assessment and Plan (1) Abnormal x-ray Current Visit: Yes Status: Acute Code(s): R93.89 - ABNORMAL FINDINGS ON DX IMAGING OF OTH BODY STRUCTURES SNOMED Code(s): 100619955 (2) Foot osteomyelitis, left Current Visit: Yes Status: Acute Code(s): M86.9 - OSTEOMYELITIS, UNSPECIFIED SNOMED Code(s): 0025943836222831 Plan: 1patient presented hospital with mental status changes in this patient with no fever did have elevated white count chest x-ray was negative urine is negative abdominal soft on clinical examination did have a nonhealing wound to the left foot area with abnormal x-ray suspicious for osteomyelitis previously grown VRE MRSA and history of Bactrim 2-blood culture has been obtained so far negative 3Patient did have debridement of the wound and per surgical note no mention of the wound extending down to the bone patient did have a sed rate of only 26 bone scan with possible chronic Osteomyelitis clinically not behaving as acute osteomyelitis, patient did advise has been discontinued we'll monitor the patient closely off antibiotic Dictation was produced using [employer] dictation software. please excuse any grammatical, word or spelling errors. Time with Patient: Less than 30
--- NOTE | 2023-07-22 12:38 | P.PN ---
Subjective HISTORY OF PRESENT ILLNESS: This is a 68-year-old male with past medical history of chronic pain, hypertension. Patient presented to the emergency center with confusion and wound on his left foot. Patient was in a sinus rhythm with PACs and PVCs with a run of atrial fibrillation with RVR heart rate up to 208 bpm. Patient converted to sinus rhythm but his altered mental status has stayed unchanged. His troponin came back elevated at 1.2. He was admitted to the hospital for acute non-ST elevated myocardial infarction and nonhealing ulcer of the foot. Urine drug screen was positive for opiates and benzodiazepines and THC. CAT scan of the brain did not show any new abnormalities. Patient is more confused today almost a point of being aggressive. Patient has been started on heparin drip. Cardizem drip was discontinued yesterday. Heart rate is running in the 68-72. Blood pressure 132/67. Echocardiogram reveals EF of 55-60%, mild , mild AR, dilated aortic root. 07/20/2023 Patient examined this morning at the bedside. Patient remains confused. He remains on therapeutic Lovenox. Telemetry reveals sinus mechanism with heart rate in the 70s. Patient's blood pressure elevated this morning with a systolic in the 160s. 07/21/2023 Patient examined this morning at the bedside. He denies chest pain or pressure. He denies shortness of breath. Patient's blood pressure remains mildly elevated this morning with a systolic in the 160s. Telemetry reveals sinus mechanism with PACs. 07/22/2023 Patient examined this morning at the bedside. Patient denies chest pain or pressure. He denies shortness of breath. Telemetry reveals sinus mechanism. Blood pressure is stable. PHYSICAL EXAM: VITAL SIGNS: Reviewed. GENERAL: Well-developed in no acute distress. NECK: Supple. No JVD or thyromegaly LUNGS: Respirations even and unlabored. Lungs essentially clear to auscultation bilaterally. HEART: Regular rate and rhythm. S1 and S2 heard. EXTREMITIES: Normal range of motion. No clubbing or cyanosis. Peripheral pulses intact. No lower extremity edema ASSESSMENT: Non-ST elevated myocardial infarction New-onset atrial fibrillation with RVR, paroxysmal Acute renal failure Sepsis with possible osteomyelitis, left foot PLAN: Continue current cardiac medications Hold Eliquis tonight and tomorrow morning NPO at midnight Patient to undergo cardiac catheterization tomorrow with Dr. Billy Further recommendations pending patient's course Nurse practitioner note has been reviewed by physician. Signing provider agrees with the documented findings, assessment, and plan of care. Objective - Vital Signs Vital signs: Vital Signs Temp 96.9 F L 07/22/23 08:35 Pulse 70 07/22/23 12:16 Resp 16 07/22/23 08:35 BP 130/81 07/22/23 08:35 Pulse Ox 98 07/22/23 08:35 FiO2 Intake & Output 07/21/23 07/22/23 07/22/23 18:59 06:59 18:59 Intake Total 465 180 Output Total 450 1150 400 Balance 15 -0 -220 Intake: Oral 465 180 Output: Urine 450 1150 400 Other: Voiding Method Urinal Urinal Urinal - Labs CBC & Chem 7: 07/20/23 08:33 07/20/23 08:33 Labs: Abnormal Lab Results - Last 24 Hours (Table) 07/21/23 Range/Units 08:02 Procalcitonin 0.15 H (0.02-0.09) ng/mL Microbiology - Last 24 Hours (Table) 07/20/23 12:30 Gram Stain - Preliminary Foot - Left Tissue Culture - Preliminary Gram Neg Bacilli
[2023-07-22 12:54] VITALS: BMI 26.4
--- NOTE | 2023-07-22 15:11 | P.PN ---
Progress Note - Text Progress Note Date: 07/22/23 Chief Complaint: Unwell This is a pleasant 68-year-old patient of Dr. Mustafa. Chronic stable medical conditions include COPD, peripheral artery disease, GERD, hypertension, bipolar disorder., peripheral Neuropathy from alcoholism. heavy drinking up to 2018. Patient continues to smoke. brother Sotero - legal guardian. Patient has chronic foot wounds for which she follows at the wound care center. Patient does wear special shoes. Follows Dr. Akbar in the wound care center. Patient's brother called the EMS: There found him to be altered. And diaphoretic. No answering questions appropriately. Brother told him that patient's mental status has been declining over the last 3 days. Patient does not remember being brought by the ambulance to the hospital. Does not know why he is here. His brother gases closely. Patient is able to get around his apartment. Also has some home health. Denies any fever and chills. Some pain in the left foot. July 19: Today patient is somewhat acting different. He is awake. But also questioned that don't make sense. I'm stopping his Risperdal and starting him on Risperdal at night. Has had a sitter. A. fib was uncontrolled. Lopressor increased today to 50 mg twice a day. Catapres cutback to 0.1 mg 3 times a day. Acidotic. Add sodium bicarbonate drip. July 20: Patient much improved this morning. Back to his normal self. Brother is visiting. Bicarbonate has improved. We'll switch to oral bicarbo matt. Bone scan ordered by ID. Patient eating well. His custom Dr. Arriaga from vascular. He will discuss further with Dr. Coates. Patient currently on IV cefepime and IV daptomycin. Patient seen by psychiatry Dr. Ochoa. Morning dose of Risperdal increased to 1 mg July 21: Left foot wound was debrided by Dr. Arriaga yesterday. [place] to be infected callus. I discussed with Dr. Sánchez from ID. He feels the changes are chronic. Discontinue antibiotics. Otherwise patient is doing much better. Renal function is normalized. Cardiac she has scheduled a cardiac catheterization on . [place] patient has acute non-Q wave VA. July 22: Antibiotics discontinued yesterday after discussing with ID. No evidence of any acute osteomyelitis. Patient is pending cardiac catheterization tomorrow. Mentally patient doing well. Active Medications Hydrocodone Bitart/Acetaminophen (Hydrocodone/Apap 10-325mg 1 Each Tab) 1 each PO Q6H PRN PRN Reason: Pain Last Admin: 07/22/23 08:53 Dose: 1 each Albuterol/Ipratropium (Ipratropium-Albuterol 3 Ml Neb) 3 ml INHALATION RT-TID [facility] Last Admin: 07/22/23 12:06 Dose: 3 ml Alprazolam (Alprazolam 0.25 Mg Tab) 0.25 mg PO Q6HR PRN PRN Reason: Mild Anxiety Alprazolam (Alprazolam 0.5 Mg Tab) 0.5 mg PO Q6HR PRN PRN Reason: Moderate Anxiety Amlodipine Besylate (Amlodipine 10 Mg Tab) 10 mg PO HS [facility] Apixaban (Apixaban 5 Mg Tab) 5 mg PO BID [facility]; Protocol Last Admin: 07/22/23 12:37 Dose: 5 mg Aspirin (Aspirin 325 Mg Tab) 325 mg PO ONCE ONE Stop: 07/23/23 05:01 Atorvastatin Calcium (Atorvastatin 80 Mg Tab) 80 mg PO HS [facility] Last Admin: 07/21/23 21:09 Dose: 80 mg Atorvastatin Calcium (Atorvastatin 80 Mg Tab) 80 mg PO ONCE ONE Stop: 07/23/23 05:01 Calcium Carbonate/Glycine (Calcium Carbonate 500 Mg Chewable) 1,000 mg PO Q4HR PRN PRN Reason: Dyspepsia Citalopram Hydrobromide (Citalopram Hydrobromide 20 Mg Tab) 20 mg PO DAILY [facility] Last Admin: 07/22/23 08:42 Dose: 20 mg Famotidine (Famotidine 20 Mg Tab) 20 mg PO HS [facility] Last Admin: 07/21/23 21:09 Dose: 20 mg Gabapentin (Gabapentin 400 Mg Cap) 400 mg PO TID [facility] Last Admin: 07/22/23 08:42 Dose: 400 mg Lisinopril/HCTZ (Lisinopril-Hctz 20-12.5 Mg 1 Each Tab) 1 each PO BID [facility] Last Admin: 07/22/23 08:43 Dose: 1 each Haloperidol (Haloperidol 5 Mg Tab) 5 mg PO Q6HR PRN PRN Reason: Agitation Haloperidol Lactate (Haloperidol Lactate 5 Mg/Ml 1 Ml Vial) 5 mg IM Q6HR PRN PRN Reason: Agitation or Acute Psychosis Heparin Sodium (Porcine) 10, (000 unit/ Sodium Chloride) 1,001 mls @ 999 mls/hr IRRIGATION ONCE PRN PRN Reason: INTRA-OP Stop: 07/22/23 23:00 Heparin Sodium (Porcine) 2,500 (unit/ Sodium Chloride) 250.5 mls @ 250 mls/hr IRRIGATION ONCE PRN PRN Reason: INTRA-OP Stop: 07/22/23 23:00 Sodium Chloride 1,000 ml/ IV (Solution) 1,000 mls @ 86.183 mls/hr IV .[id number] [facility] Lactulose (Lactulose 20 Gm/30 Ml Cup) 20 gm PO DAILY PRN PRN Reason: Constipation Lorazepam (Lorazepam 2 Mg/Ml Inj) 1 mg IM Q6HR PRN PRN Reason: Agitation Melatonin (Melatonin 3 Mg Tablet) 3 mg PO HS PRN PRN Reason: Insomnia Last Admin: 07/21/23 21:18 Dose: 3 mg Metoprolol Succinate (Metoprolol Succinate (Er) 100 Mg Tab.Er.24h) 150 mg PO DAILY [facility] Last Admin: 07/22/23 08:42 Dose: 150 mg Naloxone HCl (Naloxone 0.4 Mg/Ml 1 Ml Vial) 0.2 mg IV Q2M PRN PRN Reason: Opioid Reversal Nicotine (Nicotine 14mg/24hr Patch) 1 patch TRANSDERM DAILY [facility] Last Admin: 07/22/23 08:40 Dose: 1 patch Nitroglycerin (Nitroglycerin Sl Tabs 0.4 Mg Tab) 0.4 mg SUBLINGUAL Q5M PRN PRN Reason: Chest Pain Ondansetron HCl (Ondansetron 4 Mg/2 Ml Vial) 4 mg IVP Q8HR PRN PRN Reason: Nausea And Vomiting Risperidone (Risperidone 2 Mg Tab) 2 mg PO HS [facility] Last Admin: 07/21/23 21:11 Dose: 2 mg Risperidone (Risperidone 1 Mg Tab) 1 mg PO DAILY [facility] Last Admin: 07/22/23 08:42 Dose: 1 mg Sodium Bicarbonate (Sodium Bicarbonate Tab 650 Mg Tab) 650 mg PO TID [facility] Last Admin: 07/22/23 08:43 Dose: 650 mg Past medical history to include: COPD, PAD, foot wounds, GERD, hypertension, bipolar disorder, peripheral neuropathy from alcoholism Social history: Stopped drinking heavy alcohol in 2018. Long-standing smoker currently down to about 56 cigarettes a day. Brother Sotero legal guardian. Lives alone. Has some home help. Family history: Diabetes, vascular disorder, stroke Physical examination: VITAL SIGNS: 96.9, 71, 16, 108.72, 100% room air GENERAL: Sitting up in bed, eating, comfortable EYES: Pupils equal. Conjunctiva normal. HEENT: External appearance of nose and ears normal, oral cavity grossly normal. NECK: JVD not raised; masses not palpable. HEART: First and second heart sounds are normal; no edema. LUNGS: Respiratory rate normal; decreased breath sounds. ABDOMEN: Soft, nontender, liver spleen not palpable, no masses palpable. PSYCH: Able to answer questions appropriately MUSCULOSKELETAL:No Clubbing/cyanosis;muscles-grossly intact. Amputation of the fourth and fifth toe on the right to the metatarsal head. Wound in both the feet. Pictures in the nursing chart NEUROLOGICAL: Cranial nerves grossly intact; no facial asymmetry, power grossly intact. Decreased sensation distally. INVESTIGATIONS, reviewed in the clinical context: July 20: White count 8.3 hemoglobin 11.5 platelets 129 sodium 138 potassium 3.5 CRP 4.5 07/17/2023: White count 19.4 hemoglobin 14.4 platelets 175 sodium 133 bicarb 14 BUN 17 creatinine 1.85 Troponin I 1.2, 0.372 Urine drug seen positive for benzodiazepine, marijuana EKG tracing personally reviewed by me-atrial fibrillation. Chest x-ray film personally reviewed by me-no obvious infiltrate CT brain: Generalized degenerative changes Previous labs: January 2022: Creatinine 1.5 to Assessment and plan: -Acute delirium/metabolic encephalopathy: He secondary to Neurontin was sitting of acute kidney injury: Improved IV fluids. Decreased Neurontin to 400 mg 3 times a day -Possible psychosis: Improved Change trazodone changed over to Risperdal 2 mg at night and is 1 mg the morning.. Seen by psychiatry -Bilateral foot , pressure ulcer wounds especially in the plantar aspect deep in a patient with known peripheral artery disease and peripheral neuropathy, underlying Charcot foot: Changes felt to be chronic. Follows at the wound care center with Dr. Akbar. Vascular consulted. Wound care. ID consulted. Bone scan ordered by ID IV daptomycin and IV cefepime, discontinued after discussion with ID. Wound debrided by Dr. Arriaga on November 13. -Acute non-Q wave VA, POA Aspirin -COPD in a current smoker DuoNeb 3 times a day -Chronic nicotine dependence cigarette smoker Nicotine patch 7 -Acute kidney injury likely ATN from underlying infection: Improved Follow labs. IV fluids. -Persistent atrial fibrillation, rate controlled Received IV Cardizem in the ER. IV heparin-changed over to subcu Lovenox twice a day-discontinued Eliquis held. Today for cardiac catheterization tomorrow -Metabolic acidosis due to CK D: Improved Start sodium bicarbonate drip-changed to oral bicarbonate - chronic kidney disease stage 3 from nephrosclerosis creatinine was 1.52 in January 2022 -GERD Pepcid 20 mg twice a day -Essential Hypertension: Stop Catapres Zestoretic 20/12.5 twice a day . Amlodipine 10 mg daily at bedtime Toprol-XL 150 mg a day -Bipolar disorder, psychosis:new diagnosis Stop trazodone Klonopin 0.5 mg 3 times a day-when necessary Celexa 20 mg a day Started on Risperdal 2 mg at night and 1 mg in the morning -Painful Peripheral neuropathy secondary to history of alcoholism: Controlled Neurontin 400 mg 3 times a day. Dose was reduced -Charcot foot continue current medications. For cardiac catheterization tomorrow. Medications reviewed. Patient is for a cardiac catheterization on with Dr. Carolina Fleming. Antibiotics discontinued after discussion with ID. No osteomyelitis. Also discussed with social media analyst case reviewer.
[2023-07-22] MEDS ORDERED: amLODIPine 10 MG TAB PO SCH (21:00)
[2023-07-22] MEDS: FAMOTIDINE 20 MG TAB PO SCH (21:58)
[2023-07-22] MEDS: risperiDONE 2 MG TAB PO SCH (21:59)
[2023-07-22] MEDS ORDERED: SODIUM CHLORIDE 0.9% 1,000 ML in EMPTY BAG 1 BAG IV SCH (23:00)
[2023-07-22] MEDS: ATORVASTATIN 80 MG TAB PO SCH (23:01)
[2023-07-23] MEDS ORDERED: ASPIRIN 325 MG TAB PO ONE (05:00)
[2023-07-23] MEDS ORDERED: ATORVASTATIN 80 MG TAB PO ONE (05:00)
[2023-07-23 06:59] VITALS: RESP 18
[2023-07-23] MEDS: MIDAZOLAM 2 MG/2 ML VIAL IVP ONE ×2 (07:31→07:46)
[2023-07-23] MEDS ORDERED: IV FLUID CONTINUATION 1,000 ML IV ONE ×2 (07:32)
[2023-07-23] MEDS ORDERED: LIDOCAINE 2% (PF) 20 MG/ML 5 ML VIAL SQ ONE (07:36)
[2023-07-23] MEDS ORDERED: fentaNYL (PF) 50 MCG/ML 2 ML AMP IVP ONE (07:38)
[2023-07-23] MEDS ORDERED: VERAPAMIL SYRINGE (5 MG/10 ML) INTRAARTER ONE (07:44)
[2023-07-23] MEDS: IPRATROPIUM-ALBUTEROL 3 ML NEB INHALATION SCH ×2 (07:54→15:29)
[2023-07-23] MEDS ORDERED: IOPAMIDOL-370 100ML BTL INJ ONE (08:03)
--- NOTE | 2023-07-23 08:37 | CC ---
CARDIAC CATHETERIZATION REPORT INDICATION: Non ST-segment elevation IL. PROCEDURE NOTE: After obtaining informed consent, left heart catheterization and coronary angiogram were performed via the right radial artery using standard Constantine catheters. The right coronary artery was engaged using an Amplatz catheter and the left coronary artery was engaged using a size 4 Constantine. Hemodynamics were obtained with a pigtail catheter. The patient tolerated the procedure well without any obvious immediate complications. A TR band will be used for hemostasis. Radial artery access was obtained using Seldinger technique, 6-Japanese sheath was placed. Catheters and wires were floated into the ascending aorta under fluoroscopic guidance. The patient received verapamil and heparin per protocol. FINDINGS: 1. Hemodynamics: Left ventricular end-diastolic pressure is 6 to 8 mm. There is no significant gradient across the aortic valve. 2. Left ventriculogram: Left ventriculogram is not performed. 3. Angiographic Data: a.Right coronary artery: Right coronary artery is a large dominant vessel and is free of significant stenosis. b.LAD and circ have almost separate origins. LAD and its branches are free of significant stenosis. Circumflex coronary artery shows mild nonobstructive plaque. CONCLUSION: Mild nonobstructive disease. PLAN: The patient's non ST-segment elevation IL could be related to plaque rupture and his management is going to be in the form of risk factor modification and medical therapy. MMODL / IJN: [id number] /
[2023-07-23] MEDS: GABAPENTIN 400 MG CAP PO SCH ×2 (08:50→15:35)
[2023-07-23] MEDS: METOPROLOL SUCCINATE (ER) 100 MG TAB.ER.24H PO SCH (08:50)
[2023-07-23] MEDS: risperiDONE 1 MG TAB PO SCH (08:50)
[2023-07-23] MEDS: CITALOPRAM HYDROBROMIDE 20 MG TAB PO SCH (08:50)
[2023-07-23] MEDS ORDERED: RX INFO: IV CONTRAST WAS GIVEN 1 EACH MISC MISCELLANE PRN (08:51)
[2023-07-23] MEDS: HYDROcodone/APAP 10-325MG 1 EACH TAB PO PRN ×2 (08:51→15:35)
[2023-07-23] MEDS: SODIUM BICARBONATE TAB 650 MG TAB PO SCH ×2 (08:51→15:35)
[2023-07-23] MEDS: LISINOPRIL-HCTZ 20-12.5 MG 1 EACH TAB PO SCH (08:54)
[2023-07-23] MEDS ORDERED: SODIUM CHLORIDE 0.9% 1,000 ML IV SCH (09:00)
[2023-07-23 09:10] VITALS: TEMP 97.8
[2023-07-23 10:04] LABS: African American GFR (CKD) 77 (>60 ml/min/1.73 sqM); Anion Gap 11 mmol/L; Blood Urea Nitrogen 17 mg/dL (9-20); Calcium 9.1 mg/dL (8.4-10.2); Carbon Dioxide 30 mmol/L (22-30); Chloride 97 mmol/L (98-107); Glucose 116 mg/dL (74-99); Non-African American GFR(CKD) 67 (>60 ml/min/1.73 sqM); Potassium 3.4 mmol/L (3.5-5.1); Sodium 138 mmol/L (137-145)
[2023-07-23] MEDS: NICOTINE 14MG/24HR PATCH TRANSDERM SCH (10:11)
--- NOTE | 2023-07-23 12:39 | P.PN ---
Subjective Progress Note Date: 07/23/23 Principal diagnosis: Reason for follow-up = Abnormal x-ray left foot and a question of osteomyelitis Patient is a 68-year-old male with a past medical history significant for hypertension hyperlipidemia COPD reflux patient did have a history of osteomyelitis requiring amputation of multiple toes with previous infection with VRE MRSA and Acinetobacter patient was brought into the hospital after apparently the patient was noticed to have mental status changes, workup did include elevated white count and did have abnormal x-ray to the left foot concerning for osteomyelitis. Patient did have a debridement of the wound by vascular surgery did not mention any extension down to the bone On today's evaluation that is 07/23/2023, the patient remains to be afebrile , the patient is breathing comfortably on room air and denies any shortness of breath, the patient denies chest pain or cough , patient denies abdominal pain, no nausea/vomiting and no diarrhea has been reported , patient denies pain to his foot wound area Patient white count is 8.3 as of 07/20/2023, creatinine is 1.13, patient did have a sed rate of 26, CRP is 4.5, bone scan and consult for possible chronic osteo-, culture did grow pseudomonas and gram-negative Objective - Vital Signs Vital signs: Vital Signs Temp 97.8 F 07/23/23 08:52 Pulse 82 07/23/23 08:52 Resp 18 07/23/23 10:07 BP 125/58 07/23/23 08:52 Pulse Ox 96 07/23/23 08:52 FiO2 Intake & Output 07/22/23 07/23/23 07/23/23 18:59 06:59 18:59 Intake Total 540 240 150 Output Total 400 300 300 Balance 140 -60 -150 Weight 86.183 kg Intake: IV 150 Oral 540 240 Output: Urine 400 300 300 Other: Voiding Method Urinal Urinal - Exam GENERAL DESCRIPTION: An elderly male lying in bed in no distress RESPIRATORY SYSTEM: Unlabored breathing , clear to auscultation anteriorly HEART: S1 S2 regular rate and rhythm , ABDOMEN: Soft , no tenderness EXTREMITIES: Left foot is currently dressed, no drainage on the dressing - Labs CBC & Chem 7: 07/20/23 08:33 07/23/23 09:05 Labs: Abnormal Lab Results - Last 24 Hours (Table) 07/23/23 Range/Units 09:05 Potassium 3.4 L (3.5-5.1) mmol/L Chloride 97 L (98-107) mmol/L Glucose 116 H (74-99) mg/dL Microbiology - Last 24 Hours (Table) 07/20/23 12:30 Gram Stain - Preliminary Foot - Left Tissue Culture - Preliminary Pseudomonas aeruginosa Gram Neg Bacilli 07/17/23 11:14 Blood Culture - Final Blood Assessment and Plan (1) Abnormal x-ray Current Visit: Yes Status: Acute Code(s): R93.89 - ABNORMAL FINDINGS ON DX IMAGING OF OTH BODY STRUCTURES SNOMED Code(s): 841217136 (2) Foot osteomyelitis, left Current Visit: Yes Status: Acute Code(s): M86.9 - OSTEOMYELITIS, UNSPECIFIED SNOMED Code(s): 8530766792121355 Plan: 1patient presented hospital with mental status changes in this patient with no fever did have elevated white count chest x-ray was negative urine is negative a bdominal soft on clinical examination did have a nonhealing wound to the left foot area with abnormal x-ray suspicious for osteomyelitis previously grown VRE MRSA and history of Bactrim 2-blood culture has been obtained so far negative 3Patient did have debridement of the wound and per surgical note no mention of the wound extending down to the bone patient did have a sed rate of only 26 bone scan with possible chronic Osteomyelitis clinically not behaving as acute osteomyelitis, local culture did grow pseudomonas and another gram-negative with ID pending, however the patient seemed to be doing well off antibiotic therapy for the last few days more likely representing colonization and the patient will monitor closely off antibiotic therapy Dictation was produced using [employer] dictation software. please excuse any grammatical, word or spelling errors. Time with Patient: Less than 30
[2023-07-23 13:05] VITALS: BP 114/66; PULSE 57
--- NOTE | 2023-07-24 19:54 | P.DS ---
Providers Date of admission: 07/17/23 13:08 Expected date of discharge: 07/23/23 Attending physician: Damien Bruce Consults: 07/17/23 13:06 Consult Physician Urgent Consulting Provider: Mark Ramos Consult Reason/Comments: Osteomyelitis foot Do you want consulting provider notified?: Yes Consult Physician Urgent Consulting Provider: Fredrick Deal Consult Reason/Comments: Osteomyelitis foot Do you want consulting provider notified?: Yes 07/17/23 14:14 Consult Physician Urgent Consulting Provider: [facility] Consult Reason/Comments: N STEMI Do you want consulting provider notified?: Yes 07/19/23 22:35 Consult Physician Routine Consulting Provider: Demetrio Ochoa Consult Reason/Comments: Psychosis Do you want consulting provider notified?: Yes Primary care physician: Remington Mustafa [facility] Course: Chief Complaint: Unwell This is a pleasant 68-year-old patient of Dr. Mustafa. Chronic stable medical conditions include COPD, peripheral artery disease, GERD, hypertension, bipolar disorder., peripheral Neuropathy from alcoholism. heavy drinking up to 2018. Patient continues to smoke. brother Sotero - legal guardian. Patient has chronic foot wounds for which she follows at the wound care center. Patient does wear special shoes. Follows Dr. Akbar in the wound care center. Patient's brother called the EMS: There found him to be altered. And diaphoretic. No answering questions appropriately. Brother told him that patient's mental status has been declining over the last 3 days. Patient does not remember being brought by the ambulance to the hospital. Does not know why he is here. His brother gases closely. Patient is able to get around his apartment. Also has some home health. Denies any fever and chills. Some pain in the left foot. July 19: Today patient is somewhat acting different. He is awake. But also questioned that don't make sense. I'm stopping his Risperdal and starting him on Risperdal at night. Has had a sitter. A. fib was uncontrolled. Lopressor increased today to 50 mg twice a day. Catapres cutback to 0.1 mg 3 times a day. Acidotic. Add sodium bicarbonate drip. July 20: Patient much improved this morning. Back to his normal self. Brother is visiting. Bicarbonate has improved. We'll switch to oral bicarbonate. Bone scan ordered by ID. Patient eating well. His custom Dr. Arriaga from vascular. He will discuss further with Dr. Coates. Patient currently on IV cefepime and IV daptomycin. Patient seen by psychiatry Dr. Ochoa. Morning dose of Risperdal increased to 1 mg July 21: Left foot wound was debrided by Dr. Arriaga yesterday. [place] to be infected callus. I discussed with Dr. Sánchez from ID. He feels the changes are chronic. Discontinue antibiotics. Otherwise patient is doing much better. Renal function is normalized. Cardiac she has scheduled a cardiac catheterization on . [place] patient has acute non-Q wave [place]. July 22: Antibiotics discontinued yesterday after discussing with ID. No evidence of any acute osteomyelitis. Patient is pending cardiac catheterization tomorrow. Mentally patient doing well. July 23: Patient underwent cardiac catheterization. Dr. Nii Billy. Showed mild nonobstructive disease. By PTOT patient may have qualified for rehab. Patient very keen to go home. Case management and spoke to patient's brother who is the guardian and his current stay with the patient. Discussed with the nurse. Discussed with the patient. Questions answered. Patient feels back to his baseline. Discussion and discharge planning more than 35 minutes Past medical history to include: COPD, PAD, foot wounds, GERD, hypertension, bipolar disorder, peripheral neuropathy from alcoholism Social history: Stopped drinking heavy alcohol in 2018. Long-standing smoker currently down to about 56 cigarettes a day. Brother Sotero legal guardian. Lives alone. Has some home help. Family history: Diabetes, vascular disorder, stroke Physical examination: VITAL SIGNS: 97.8, 57, 18, 114/66, 98% room air GENERAL: A chair, comfortable EYES: Pupils equal. Conjunctiva normal. HEENT: External appearance of nose and ears normal, oral cavity grossly normal. NECK: JVD not raised; masses not palpable. HEART: First and second heart sounds are normal; no edema. LUNGS: Respiratory rate normal; decreased breath sounds. ABDOMEN: Soft, nontender, liver spleen not palpable, no masses palpable. PSYCH: Answering questions appropriately MUSCULOSKELETAL:No Clubbing/cyanosis;muscles-grossly intact. Amputation of the fourth and fifth toe on the right to the metatarsal head. Wound in both the feet. Pictures in the nursing chart NEUROLOGICAL: Cranial nerves grossly intact; no facial asymmetry, power g rossly intact. Decreased sensation distally. INVESTIGATIONS, reviewed in the clinical context: Cardiac catheterization: Animal disease July 23: Creatinine 1.13 July 20: White count 8.3 hemoglobin 11.5 platelets 129 sodium 138 potassium 3.5 CRP 4.5 07/17/2023: White count 19.4 hemoglobin 14.4 platelets 175 sodium 133 bicarb 14 BUN 17 creatinine 1.85 Troponin I 1.2, 0.372 Urine drug seen positive for benzodiazepine, marijuana EKG tracing personally reviewed by me-atrial fibrillation. Chest x-ray film personally reviewed by me-no obvious infiltrate CT brain: Generalized degenerative changes Previous labs: January 2022: Creatinine 1.5 to Assessment and plan: -Acute delirium/metabolic encephalopathy: He secondary to Neurontin was sitting of acute kidney injury: Improved IV fluids. Decreased Neurontin to 400 mg 3 times a day -Possible psychosis: Resolved Change trazodone changed over to Risperdal 2 mg at night and is 1 mg the morning.. Seen by psychiatry -Bilateral foot , pressure ulcer wounds especially in the plantar aspect deep in a patient with known peripheral artery disease and peripheral neuropathy, underlying Charcot foot: Changes felt to be chronic. Follows at the wound care center with Dr. Akbar. Vascular consulted. Wound care. ID consulted. Bone scan ordered by ID IV daptomycin and IV cefepime, discontinued after discussion with ID. Wound debrided by Dr. Arriaga on July 20. -Acute non-Q wave [place], POA Aspirin Cardiac catheter showed minimal disease -COPD in a current smoker DuoNeb 3 times a day -Chronic nicotine dependence cigarette smoker Nicotine patch 7 -Acute kidney injury likely ATN from underlying infection: Improved Follow labs. IV fluids. -Persistent atrial fibrillation, rate controlled Received IV Cardizem in the ER. IV heparin-changed over to subcu Lovenox twice a day-discontinued Eliquis -Metabolic acidosis due to CK D: Improved Start sodium bicarbonate drip-changed to oral bicarbonate - chronic kidney disease stage 3 from nephrosclerosis creatinine was 1.52 in January 2022 -GERD Pepcid 20 mg twice a day -Essential Hypertension: Stop Catapres Zestoretic 20/12.5 twice a day . Amlodipine 10 mg daily at bedtime Toprol-XL 150 mg a day -Bipolar disorder, psychosis:new diagnosis Stop trazodone Klonopin 0.5 mg 3 times a day-when necessary Celexa 20 mg a day Started on Risperdal 2 mg at night and 1 mg in the morning -Painful Peripheral neuropathy secondary to history of alcoholism: Controlled Neurontin 400 mg 3 times a day. Dose was reduced -Charcot foot Disposition: Home Plan - Discharge Summary Discharge Rx Participant: Yes New Discharge Prescriptions: New risperiDONE [RisperDAL] 2 mg PO HS #30 tab Metoprolol Succinate (ER) [Toprol XL] 150 mg PO DAILY #30 tab Lisinopril-Hctz 20-12.5 mg [Zestoretic 20-12.5] 1 each PO BID #60 tab Ipratropium-Albuterol Nebulize [Duoneb 0.5 mg-3 mg/3 ml Soln] 3 ml INHALATION RT-TID #90 each Nitroglycerin Sl Tabs [Nitrostat] 0.4 mg SUBLINGUAL Q5M PRN #30 tab PRN Reason: Chest Pain Sodium Bicarbonate Tab 650 mg PO BID #60 tab Apixaban [Eliquis] 5 mg PO BID #60 tab Nicotine 14Mg/24Hr Patch [Habitrol] 1 patch TRANSDERM DAILY #14 patch Atorvastatin [Lipitor] 80 mg PO HS #30 tab amLODIPine [Norvasc] 10 mg PO HS #30 tab risperiDONE [RisperDAL] 1 mg PO DAILY #30 tab Continue Citalopram Hydrobromide [CeleXA] 20 mg PO DAILY Famotidine [Pepcid] 20 mg PO BID #1 tablet clonazePAM [KlonoPIN] 0.5 mg PO TID PRN PRN Reason: Anxiety HYDROcodone/APAP 10-325MG [[place] 10-325] 1 tab PO Q6H PRN PRN Reason: Pain Changed Gabapentin 400 mg PO TID #0 Discontinued lisinopriL [Zestril] 10 mg PO BID traZODone HCL 150 mg PO HS cloNIDine HCL [Catapres] 0.2 mg PO TID #90 tab Discharge Medication List Citalopram Hydrobromide [CeleXA] 20 mg PO DAILY 09/14/19 [History] Famotidine [Pepcid] 20 mg PO BID #1 tablet 09/20/19 [Rx] clonazePAM [KlonoPIN] 0.5 mg PO TID PRN 01/18/22 [History] HYDROcodone/APAP 10-325MG [[place] 10-325] 1 tab PO Q6H PRN 07/17/23 [History] Apixaban [Eliquis] 5 mg PO BID #60 tab 07/21/23 [Rx] Atorvastatin [Lipitor] 80 mg PO HS #30 tab 07/21/23 [Rx] Gabapentin 400 mg PO TID #0 07/21/23 [Rx] Lisinopril-Hctz 20-12.5 mg [Zestoretic 20-12.5] 1 each PO BID #60 tab 07/21/23 [Rx] Metoprolol Succinate (ER) [Toprol XL] 150 mg PO DAILY #30 tab 07/21/23 [Rx] Nicotine 14Mg/24Hr Patch [Habitrol] 1 patch TRANSDERM DAILY #14 patch 07/21/23 [Rx] amLODIPine [Norvasc] 10 mg PO HS #30 tab 07/21/23 [Rx] risperiDONE [RisperDAL] 1 mg PO DAILY #30 tab 07/21/23 [Rx] risperiDONE [RisperDAL] 2 mg PO HS #30 tab 07/21/23 [Rx] Ipratropium-Albuterol Nebulize [Duoneb 0.5 mg-3 mg/3 ml Soln] 3 ml INHALATION RT-TID #90 each 07/23/23 [Rx] Nitroglycerin Sl Tabs [Nitrostat] 0.4 mg SUBLINGUAL Q5M PRN #30 tab 07/23/23 [Rx] Sodium Bicarbonate Tab 650 mg PO BID #60 tab 07/23/23 [Rx] Follow up Appointment(s)/Referral(s): dr LEON [Other] - 10 Days Remington Mustafa MD [Primary Care Provider] - 1-2 days Shun Billy MD [STAFF PHYSICIAN] - 2 Weeks [facility] Visiting Nurse, [NON-STAFF] - Patient Instructions/Handouts: After Radial Heart Catheterization (GEN) Activity/Diet/Wound Care/Special Instructions: Patient has gabapentin 800 mg tablets at home. That can be broken into half for the new dosing. Wound care per Dr. Ramos. Follow up at the wound care center with Dr. Akbar Discharge/Stand Alone Forms: AA Meetings [place], Who Do I Call?, Community Resources, Outpatient Counseling, Personal [employer] Discharge Disposition: HOME WITH HOME HEALTH SERVICES
== END 2023-07-23 16:36 | disposition home health service (06) | DRG 853 ==
LOC: EC 11:01 → 4SSUR 13:08 → 3SCARD 13:39
PROVIDERS: ADMIT Hospitalist; ATTEND Hospitalist
PROC: 0JBR0ZZ Excision of Left Foot Subcutaneous Tissue and Fascia, Open Approach (ICD-10-PCS; principal; 2023-07-20)
PROC: B2111ZZ Fluoroscopy of Multiple Coronary Arteries using Low Osmolar Contrast (ICD-10-PCS; 2023-07-23)
PROC: 4A023N7 Measurement of Cardiac Sampling and Pressure, Left Heart, Percutaneous Approach (ICD-10-PCS; 2023-07-23)
DX: A41.9 Sepsis, unspecified organism (principal); G92.8 Other toxic encephalopathy; I21.4 Non-ST elevation (NSTEMI) myocardial infarction; N17.0 Acute kidney failure with tubular necrosis; E87.20 Acidosis, unspecified; I48.19 Other persistent atrial fibrillation; M86.672 Other chronic osteomyelitis, left ankle and foot; F10.288 Alcohol dependence with other alcohol-induced disorder; F23 Brief psychotic disorder; G62.1 Alcoholic polyneuropathy; L89.629 Pressure ulcer of left heel, unspecified stage; L89.619 Pressure ulcer of right heel, unspecified stage; J44.9 Chronic obstructive pulmonary disease, unspecified; F31.9 Bipolar disorder, unspecified; N18.30 Chronic kidney disease, stage 3 unspecified; I73.9 Peripheral vascular disease, unspecified; R65.20 Severe sepsis without septic shock; Z89.421 Acquired absence of other right toe(s); B96.5 Pseudomonas (aeruginosa) (mallei) (pseudomallei) as the cause of diseases classified elsewhere; M14.672 Charcot's joint, left ankle and foot; I25.10 Atherosclerotic heart disease of native coronary artery without angina pectoris; I25.83 Coronary atherosclerosis due to lipid rich plaque; I77.810 Thoracic aortic ectasia; I12.9 Hypertensive chronic kidney disease with stage 1 through stage 4 chronic kidney disease, or unspecified chronic kidney disease; E78.5 Hyperlipidemia, unspecified; I49.3 Ventricular premature depolarization; F90.9 Attention-deficit hyperactivity disorder, unspecified type; I35.2 Nonrheumatic aortic (valve) stenosis with insufficiency; K21.9 Gastro-esophageal reflux disease without esophagitis; G89.29 Other chronic pain; L40.9 Psoriasis, unspecified; G47.00 Insomnia, unspecified; K59.00 Constipation, unspecified; F17.210 Nicotine dependence, cigarettes, uncomplicated; Z79.899 Other long term (current) drug therapy; Z86.14 Personal history of Methicillin resistant Staphylococcus aureus infection; Z86.19 Personal history of other infectious and parasitic diseases; Z59.6 Low income; Z88.0 Allergy status to penicillin
CPT/HCPCS: 36415; 70450; 71046; 78315; 80048; 80053; 80306; 81001; 82565; 83605; 84145; 84484; 85025; 85610; 85652; 85730; 86140; 87040; 87070; 87077; 87186; 87205; 93005; 93306; 93458; 94640; 94760; 96361; 96365; 96366; 96367; 96372; 96375; 96376; 99291

== ENCOUNTER 2024-01-07 15:13 | Inpatient (IN) | payer MEDICARE, OTHER ==
[2024-01-07] MEDS: SODIUM CHLORIDE 0.9% 1,000 ML IV STA (15:38)
[2024-01-07 15:48] LABS: Basophils % (A) 0 %; Eosinophils # (A) 0.3 k/uL (0-0.7); Eosinophils % (A) 3 %; HCT 28.3 % (39.0-53.0); HGB 9.7 gm/dL (13.0-17.5); Lymphocytes # (A) 0.7 k/uL (1.0-4.8); Lymphocytes % (A) 6 %; MCH 31.5 pg (25.0-35.0); MCHC 34.3 g/dL (31.0-37.0); MCV 91.9 fL (80.0-100.0); Mean Platelet Volume 8.3; Monocytes # (A) 0.4 k/uL (0-1.0); Monocytes % (A) 3 %; Neutrophils # (A) 11.4 k/uL (1.3-7.7); Neutrophils % (A) 88 %; Platelet Count 127 k/uL (150-450); RBC 3.08 m/uL (4.30-5.90); RDW 12.7 % (11.5-15.5); WBC 12.9 k/uL (3.8-10.6)
--- NOTE | 2024-01-07 15:59 | ED ---
General Adult HPI - General Chief complaint: Weakness Stated complaint: Hypotension Time Seen by Provider: 01/07/24 15:24 Source: patient, EMS, RN notes reviewed, old records reviewed Mode of arrival: EMS Limitations: no limitations - History of Present Illness Initial comments: 68-year-old male presenting from home with hypotension. Apparently the patient was seen by visiting nurses and was noted to have a low blood pressure, sent to the emergency department. Patient believes that he does take oral antihypertensive medication. Uncertain if he took these this morning or not. He denies chest pain. He reports mild abdominal discomfort. He does believe he has not been eating and drinking well and states that his blood pressure has been running low for some time. - Related Data Home Medications Medication Instructions Recorded Confirmed Citalopram Hydrobromide [CeleXA] 20 mg PO DAILY 09/14/19 01/07/24 clonazePAM [KlonoPIN] 0.5 mg PO TID 01/18/22 01/07/24 HYDROcodone/APAP 10-325MG [[place] 1 tab PO QID 07/17/23 01/07/24 10-325] Lisinopril-Hctz 20-12.5 mg 1 tab PO DAILY 01/07/24 01/07/24 [Zestoretic 20-12.5] Nitroglycerin Sl Tabs [Nitrostat] 0.4 mg SL Q5M PRN 01/07/24 01/07/24 Pantoprazole [Protonix] 40 mg PO DAILY 01/07/24 01/07/24 Tamsulosin HCl [Flomax] 0.4 mg PO HS 01/07/24 01/07/24 risperiDONE [RisperDAL] 2 mg PO HS 01/07/24 01/07/24 traZODone HCL 150 mg PO HS 01/07/24 01/07/24 Previous Rx's Medication Instructions Recorded Famotidine [Pepcid] 20 mg PO BID #1 tablet 09/20/19 Apixaban [Eliquis] 5 mg PO BID #60 tab 07/21/23 Atorvastatin [Lipitor] 80 mg PO HS #30 tab 07/21/23 Gabapentin 400 mg PO TID #0 07/21/23 Metoprolol Succinate (ER) [Toprol 150 mg PO DAILY #30 tab 07/21/23 XL] risperiDONE [RisperDAL] 1 mg PO DAILY #30 tab 11/14/23 Allergies Allergy/AdvReac Type Severity Reaction Status Date / Time Penicillins Allergy Dyspnea, Verified 01/07/24 16:41 HIVES, THROAT SWELLING Review of Systems ROS Statement: Those systems with pertinent positive or pertinent negative responses have been documented in the HPI. ROS Other: All systems not noted in ROS Statement are negative. 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 History of Any Multi-Drug Resistant Organisms: MRSA, VRE Date of last positivie culture/infection: 01/21/22 MRSA & VRE MDRO Source:: RIGHT Foot Past Surgical History: Orthopedic Surgery Additional Past Surgical History / Comment(s): Amputation of the fourth and fifth toes on the right through the metatarsal heads, multiple I&D to nonhealing wounds on the R foot, repair of perforated ucler of stomach, EGD/colonoscopy, PICC lines in and out. Past Anesthesia/Blood Transfusion Reactions: Motion Sickness Additional Past Anesthesia/Blood Transfusion Reaction / Comment(s): gifty trophobia Past Psychological History: ADD/ADHD, Anxiety, Depression Past Alcohol Use History: Unable to Obtain Past Drug Use History: Unable to Obtain - Past Family History Mother Family Medical History: CVA/TIA, Diabetes Mellitus, Vascular Disorder Additional Family Medical History / Comment(s): emotional problems. age 64 of cva Father Family Medical History: Hypertension Additional Family Medical History / Comment(s): age 38 from mva General Exam General appearance: alert, in no apparent distress Head exam: Present: atraumatic, normocephalic Eye exam: Present: normal appearance, PERRL ENT exam: Present: mucous membranes dry Neck exam: Present: normal inspection. Absent: tenderness, meningismus Respiratory exam: Present: normal lung sounds bilaterally. Absent: respiratory distress, wheezes Cardiovascular Exam: Present: regular rate, normal rhythm GI/Abdominal exam: Present: soft, tenderness (Left lower quadrant). Absent: distended, guarding Extremities exam: Present: normal inspection, normal capillary refill. Absent: pedal edema Neurological exam: Present: alert, oriented X3, CN II-XII intact. Absent: motor sensory deficit Psychiatric exam: Present: normal affect, normal mood Skin exam: Present: warm, dry, intact. Absent: cyanosis, diaphoretic Course Vital Signs 01/07/24 01/07/24 01/07/24 15:19 16:41 16:48 Temperature 97.7 F Pulse Rate 69 71 Respiratory 18 18 Rate Blood Pressure 71/51 87/54 85/69 O2 Sat by Pulse 98 99 Oximetry 01/07/24 01/07/24 01/07/24 19:08 21:01 21:07 Temperature Pulse Rate 68 78 Respiratory 20 20 Rate Blood Pressure 95/63 91/58 102/71 O2 Sat by Pulse 99 96 Oximetry - Reevaluation(s) Reevaluation #1: 01/07/24 22:20 Patient did respond to initial fluids and then blood pressure dropped into the 80s systolic. He remains alert. He has good color. His initial lactic was normal. I do feel he has adequate perfusion at lower systolic blood pressure. Medical Decision Making - Medical Decision Making Was pt. sent in by a medical professional or institution ([facility], [employer], urgent care, hospital, or retirement...) When possible be specific @ -No Did you speak to anyone other than the patient for history (EMS, parent, family, police, friend...)? What history was obtained from this source @ -No Did you review nursing and triage notes (agree or disagree)? Why? @ -I reviewed and agree with nursing and triage notes Were old charts reviewed (outside hosp., previous admission, EMS record, old EKG, old radiological studies, urgent care reports/EKG's, retirement records)? Report findings @ -No old charts were reviewed Differential Diagnosis differential Weakness: Hypoglycemia, shock, sepsis, hyponatremia, anemia, infection, [place], ETOH, adverse medicine reaction, overdose, stroke, this is not meant to be an all-inclusive list. EKG interpreted by me (3pts min.). @Atrial fibrillation with a rate of 67 QRS duration 89, QTc 243 X-rays interpreted by me (1pt min.). @ -Chest x-ray concerning for infiltrate, pneumonia CT interpreted by me (1pt min.). @ -None done U/S interpreted by me (1pt. min.). @ -None done What testing was considered but not performed or refused? (CT, X-rays, U/S, la bs)? Why? @ -None What meds were considered but not given or refused? Why? @ -None Did you discuss the management of the patient with other professionals (professionals i.e. , PA, [employer], lab, RT, psych nurse, community mental health social worker, buffer copper, teacher, police officer, correctional case manager)? Give summary @ -Case discussed with Dr. Bruce will admit Was smoking cessation discussed for >3mins.? @ -No Was critical care preformed (if so, how long)? @Yes, 35 minutes Were there social determinants of health that impacted care today? How? (Homelessness, low income, unemployed, alcoholism, drug addiction, transportat ion, low edu. Level, literacy, decrease access to med. care, detention, rehab)? @ -No Was there de-escalation of care discussed even if they declined (Discuss DNR or withdrawal of care, Hospice)? DNR status @ -No What co-morbidities impacted this encounter? (DM, HTN, Smoking, COPD, CAD, Cancer, CVA, ARF, Chemo, Hep., AIDS, mental health diagnosis, sleep apnea, morbid obesity)? @ -[Atrial fibrillation, hypertension Was patient admitted / discharged? Hospital course, mention meds given and route, prescriptions, significant lab abnormalities, going to OR and other pertinent info. @ -68-year-old male presenting with hypotension, weakness. Patient appears dehydrated. EKG is rate controlled atrial fibrillation. Patient is on Eliquis. He denies chest pain. He has significant lab abnormalities including a white blood cell count 12.9, chronic anemia at 9.7. Creatinine 3.0 which is elevated from baseline. He has a chronic troponin elevation which is again elevated at 0.157. This level will be trended. The patient is on Eliquis and has no active chest pain. Cardiology will be placed on consult regarding this lab abnormality. Urinalysis pending. Patient started on antibiotics to cover for pneumonia and IV fluids for both REILLY and pneumonia. Undiagnosed new problem with uncertain prognosis? @ -No Drug Therapy requiring intensive monitoring for toxicity (Heparin, Nitro, Insulin, Cardizem)? @ -No Were any procedures done? @ -No Diagnosis/symptom? @ -Pneumonia, REILLY, troponin elevation Acute, or Chronic, or Acute on Chronic? @ -Default Uncomplicated (without systemic symptoms) or Complicated (systemic symptoms)? @ -Complicated Side effects of treatment? @ -No Exacerbation, Progression, or Severe Exacerbation? @ -No Poses a threat to life or bodily function? How? (Chest pain, [place], [place], pneumonia, PE, COPD, DKA, ARF, appy, cholecystitis, CVA, Diverticulitis, Homicidal, Suicidal, threat to staff... and all critical care pts) @Yes, sepsis, ACS - Lab Data Result diagrams: 01/07/24 15:41 01/07/24 15:41 Lab Results 01/07/24 01/07/24 01/07/24 Range/Units 15:41 15:41 15:41 WBC 12.9 H (3.8-10.6) k/uL RBC 3.08 L (4.30-5.90) m/uL Hgb 9.7 L (13.0-17.5) gm/dL Hct 28.3 L (39.0-53.0) % MCV 91.9 (80.0-100.0) fL MCH 31.5 (25.0-35.0) pg MCHC 34.3 (31.0-37.0) g/dL RDW 12.7 (11.5-15.5) % Plt Count 127 L (150-450) k/uL MPV 8.3 Neutrophils % 88 % Lymphocytes % 6 % Monocytes % 3 % Eosinophils % 3 % Basophils % 0 % Neutrophils # 11.4 H (1.3-7.7) k/uL Lymphocytes # 0.7 L (1.0-4.8) k/uL Monocytes # 0.4 (0-1.0) k/uL Eosinophils # 0.3 (0-0.7) k/uL Basophils # 0.0 (0-0.2) k/uL PT 12.3 (10.0-12.5) sec INR 1.1 (<1.2) APTT 32.1 H (22.0-30.0) sec Sodium 133 L (137-145) mmol/L Potassium 3.8 (3.5-5.1) mmol/L Chloride 103 (98-107) mmol/L Carbon Dioxide 23 (22-30) mmol/L Anion Gap 7 mmol/L BUN 44 H (9-20) mg/dL Creatinine 3.01 H (0.66-1.25) mg/dL Est GFR (CKD-EPI)AfAm 24 (>60 ml/min/1.73 sqM) Est GFR (CKD-EPI)NonAf 20 (>60 ml/min/1.73 sqM) Glucose 123 H (74-99) mg/dL Plasma Lactic Acid Josse (0.7-2.0) mmol/L Calcium 8.2 L (8.4-10.2) mg/dL Magnesium 1.6 (1.6-2.3) mg/dL Total Bilirubin 0.6 (0.2-1.3) mg/dL AST 48 (17-59) U/L ALT 15 (4-49) U/L Alkaline Phosphatase 55 (38-126) U/L Troponin I (0.000-0.034) ng/mL Total Protein 5.9 L (6.3-8.2) g/dL Albumin 3.1 L (3.5-5.0) g/dL 01/07/24 01/07/24 Range/Units 15:41 15:41 WBC (3.8-10.6) k/uL RBC (4.30-5.90) m/uL Hgb (13.0-17.5) gm/dL Hct (39.0-53.0) % MCV (80.0-100.0) fL MCH (25.0-35.0) pg MCHC (31.0-37.0) g/dL RDW (11.5-15.5) % Plt Count (150-450) k/uL MPV Neutrophils % % Lymphocytes % % Monocytes % % Eosinophils % % Basophils % % Neutrophils # (1.3-7.7) k/uL Lymphocytes # (1.0-4.8) k/uL Monocytes # (0-1.0) k/uL Eosinophils # (0-0.7) k/uL Basophils # (0-0.2) k/uL PT (10.0-12.5) sec INR (<1.2) APTT (22.0-30.0) sec Sodium (137-145) mmol/L Potassium (3.5-5.1) mmol/L Chloride (98-107) mmol/L Carbon Dioxide (22-30) mmol/L Anion Gap mmol/L BUN (9-20) mg/dL Creatinine (0.66-1.25) mg/dL Est GFR (CKD-EPI)AfAm (>60 ml/min/1.73 sqM) Est GFR (CKD-EPI)NonAf (>60 ml/min/1.73 sqM) Glucose (74-99) mg/dL Plasma Lactic Acid Josse 1.6 (0.7-2.0) mmol/L Calcium (8.4-10.2) mg/dL Magnesium (1.6-2.3) mg/dL Total Bilirubin (0.2-1.3) mg/dL AST (17-59) U/L ALT (4-49) U/L Alkaline Phosphatase (38-126) U/L Troponin I 0.157 H* (0.000-0.034) ng/mL Total Protein (6.3-8.2) g/dL Albumin (3.5-5.0) g/dL Disposition Clinical Impression: ARF (acute renal failure), Dehydration, Pneumonia Disposition: ADMITTED IP TO THIS HOSP Condition: Stable Is patient prescribed a controlled substance at d/c from ED?: No Time of Disposition: 18:01
[2024-01-07 16:00] LABS: INR 1.1 (<1.2); Partial Thromboplastin Time 32.1 sec (22.0-30.0); Prothrombin Time 12.3 sec (10.0-12.5)
[2024-01-07 16:10] LABS: ALT 15 U/L (4-49); AST 48 U/L (17-59); African American GFR (CKD) 24 (>60 ml/min/1.73 sqM); Albumin 3.1 g/dL (3.5-5.0); Alkaline Phosphatase 55 U/L (38-126); Anion Gap 7 mmol/L; Blood Urea Nitrogen 44 mg/dL (9-20); Calcium 8.2 mg/dL (8.4-10.2); Carbon Dioxide 23 mmol/L (22-30); Chloride 103 mmol/L (98-107); Glucose 123 mg/dL (74-99); Magnesium 1.6 mg/dL (1.6-2.3); Non-African American GFR(CKD) 20 (>60 ml/min/1.73 sqM); Potassium 3.8 mmol/L (3.5-5.1); Sodium 133 mmol/L (137-145); Total Bilirubin 0.6 mg/dL (0.2-1.3); Total Protein 5.9 g/dL (6.3-8.2)
[2024-01-07] MEDS: SODIUM CHLORIDE 0.9% 500 ML 500 ML IV ONE ×2 (16:47→22:11)
--- NOTE | 2024-01-07 16:55 | XR ---
EXAMINATION TYPE: XR chest 2V DATE OF EXAM: 01/07/2024 COMPARISON: 07/17/2023 HISTORY: Weakness TECHNIQUE: Frontal and lateral views of the chest are obtained. FINDINGS: There is a small focal partially consolidative opacity in one of the lung bases seen on th e lateral view. This could represent pneumonic infiltrate and short-term follow-up to resolution is r ecommended. Heart size normal and the pulmonary vascularity is not congested. No pleural effusion or pneumothorax . There is open reduction internal fixation of left clavicular fracture. IMPRESSION: Possible small pneumonic infiltrate in one of the lung bases posteriorly as described ab ove. Short-term follow-up to resolution is recommended.
[2024-01-07] MEDS: SODIUM CHLORIDE 0.9% 1,000 ML IV SCH ×2 (17:48→18:13)
[2024-01-07] MEDS ORDERED: NALOXONE 0.4 MG/ML 1 ML VIAL IV PRN (17:57)
[2024-01-07] MEDS: AZITHROMYCIN 500 MG in SODIUM CHLORIDE 0.9% 250 ML IVPB STA (19:14)
[2024-01-07] MEDS ORDERED: clonazePAM 0.5 MG TAB PO PRN (20:32)
[2024-01-07] MEDS ORDERED: GABAPENTIN 400 MG CAP PO SCH (21:00)
[2024-01-07] MEDS ORDERED: traZODone HCL 50 MG TAB PO SCH (21:00)
[2024-01-07] MEDS: TAMSULOSIN 0.4 MG CAP.ER.24H PO SCH (21:03)
[2024-01-07] MEDS: APIXABAN 2.5 MG TABLET PO SCH (21:03)
[2024-01-07] MEDS: ATORVASTATIN 80 MG TAB PO SCH (21:03)
[2024-01-07] MEDS: ENOXAPARIN 40 MG/0.4 ML SYRINGE SQ SCH (21:04)
[2024-01-07] MEDS ORDERED: clonazePAM 0.5 MG TAB PO SCH (22:00)
[2024-01-07] MEDS: risperiDONE 2 MG TAB PO SCH (22:02)
[2024-01-07 22:26] LABS: Amorphous Sediment,Urine Rare /hpf; Appearance,Urine Cloudy (Clear); Bilirubin,Urine Negative (Negative); Blood,Urine Negative (Negative); Color,Urine Yellow; Glucose,Urine (UA) Negative (Negative); Hyaline Casts,Urine 24 /lpf (0-2); Ketones,Urine Negative (Negative); Leukocyte Esterase,Urine Negative (Negative); Mucus,Urine Rare /hpf; Nitrite,Urine Negative (Negative); Protein,Urine Trace (Negative); RBC,Urine 2 /hpf (0-5); Specific Gravity,Urine 1.019 (1.001-1.035); Squamous Epithelial Cell,Urine 1 /hpf (0-4); Urobilinogen,Urine <2.0 mg/dL (<2.0); WBC,Urine 2 /hpf (0-5)
[2024-01-08] MEDS: MIDODRINE 5 MG TAB PO SCH (00:47)
[2024-01-08] MEDS: GABAPENTIN 400 MG CAP PO SCH (01:55)
[2024-01-08] MEDS: NICOTINE 21MG/24HR PATCH TRANSDERM STA (03:27)
[2024-01-08] MEDS: HYDROcodone/APAP 10-325MG 1 EACH TAB PO PRN (03:27)
[2024-01-08] MEDS: PANTOPRAZOLE 40 MG TABLET PO SCH (08:20)
[2024-01-08] MEDS: risperiDONE 1 MG TAB PO SCH (08:20)
[2024-01-08] MEDS: NICOTINE 21MG/24HR PATCH TRANSDERM SCH (08:20)
[2024-01-08] MEDS: CITALOPRAM HYDROBROMIDE 20 MG TAB PO SCH (08:20)
[2024-01-08] MEDS: SODIUM CHLORIDE 0.9% 1,000 ML IV SCH (08:21)
[2024-01-08 08:26] LABS: Basophils % (A) 0 %; Eosinophils # (A) 0.1 k/uL (0-0.7); Eosinophils % (A) 1 %; HCT 28.7 % (39.0-53.0); HGB 9.9 gm/dL (13.0-17.5); Lymphocytes % (A) 11 %; MCH 31.9 pg (25.0-35.0); MCHC 34.4 g/dL (31.0-37.0); MCV 92.6 fL (80.0-100.0); Monocytes # (A) 0.4 k/uL (0-1.0); Monocytes % (A) 4 %; Neutrophils # (A) 7.8 k/uL (1.3-7.7); Neutrophils % (A) 82 %; Platelet Count 125 k/uL (150-450); RDW 12.7 % (11.5-15.5); WBC 9.5 k/uL (3.8-10.6)
[2024-01-08 08:47] LABS: African American GFR (CKD) 35 (>60 ml/min/1.73 sqM); Anion Gap 6 mmol/L; Blood Urea Nitrogen 36 mg/dL (9-20); Calcium 8.3 mg/dL (8.4-10.2); Carbon Dioxide 21 mmol/L (22-30); Chloride 108 mmol/L (98-107); Glucose 114 mg/dL (74-99); Non-African American GFR(CKD) 30 (>60 ml/min/1.73 sqM); Potassium 3.9 mmol/L (3.5-5.1); Sodium 135 mmol/L (137-145)
--- NOTE | 2024-01-08 10:42 | P.CRDCN ---
History of Present Illness History of present illness: HISTORY OF PRESENT ILLNESS: This is a 68-year-old male with a past medical history significant for atrial fibrillation, hyperlipidemia, hypertension, mild CAD, and nicotine dependence. Patient does not follow in the office with a music intern. We have been asked to see the patient in consultation for elevated troponin and acute kidney injury. Patient examined at the bedside in the emergency room. Patient states he presented to the hospital because his blood pressure was running low. Patient states that he felt tired and had mild dizziness. He denied any chest pain or pressure. He denied any swelling to his lower extremities. He denied having any syncopal episodes. Patient states he is not very active at home. He denies any caffeine use or alcohol use. He does report having a mild cough at home but no fever. No nausea or vomiting. He is a current cigarette smoker and smokes 3/4 of a pack a day. The patient does have a history of atrial fibrillation and is anticoagulated on an outpatient basis. Patient was also found to have a acute kidney injury with a creatinine of 3.01 on admission. Repeat this morning 2.16. Patient was hypotensive upon admission which has since resolved. Most recent blood pressure 103/74. DIAGNOSTICS: - EKG reveals atrial fibrillation with controlled ventricular rate - Chest xray possible small pneumonic infiltrate in one of the lung bases posteriorly - Laboratory data: WBC 9.5. Hemoglobin 9.9. Platelet count 125. Sodium 135. Potassium 3.9. BUN 36. Creatinine 2.16. Troponin 0.157. 0.126. 0.097. Lactic acid 1.6. - Current home cardiac medications include metoprolol succinate 150 mg a day, lisinoprilhydrochlorothiazide 20-12.5 mg daily, Lipitor 80 mg at night, Eliquis 5 mg twice a day. - Most recent echocardiogram obtained in July 2023 reveals ejection fraction 55 to 60%, mild pulmonary hypertension, mild aortic regurgitation, mild aortic stenosis, trace MR, mild TR. - Cardiac catheterization history: July [address] Billy revealing mild nonobstructive disease REVIEW OF SYSTEMS: At the time of my exam: CONSTITUTIONAL: Denies fever or chills. HEENT: Denies blurred vision, vision changes, or eye pain. Denies hemoptysis CARDIOVASCULAR: Denies chest pain. Denies orthopnea. Denies PND. Denies pal pitations RESPIRATORY: Denies shortness of breath. GASTROINTESTINAL: Denies abdominal pain. Denies nausea or vomiting. HEMATOLOGIC: Denies bleeding disorders. GENITOURINARY: Denies any blood in urine. SKIN: Denies pruitis. Denies rash. PHYSICAL EXAM: VITAL SIGNS: Reviewed. GENERAL: Well-developed in no acute distress. HEENT: Head is normocephalic. Pupils are equal, round. Sclerae anicteric. Mucous membranes of the mouth are moist. Neck supple. No JVD or thyromegaly LUNGS: Respirations even and unlabored. Lungs essentially clear to auscultation bilaterally. HEART: Regular rate and rhythm. S1 and S2 heard. Systolic murmur noted. ABDOMEN: Soft. Nondistended. Nontender. EXTREMITIES: Normal range of motion. No clubbing or cyanosis. Peripheral pulses intact. No lower extremity edema NEUROLOGIC: Awake and alert. Oriented x 3. ASSESSMENT: Hypotension, resolved Acute kidney injury Elevated troponins, suspect secondary to acute kidney injury, no evidence of acute coronary syndrome Paroxysmal atrial fibrillation Mild coronary artery disease, per cardiac catheterization July 2023 Hypertension Hyperlipidemia Nicotine dependence PLAN: Obtain limited echo to assess cardiac structure and function Begin IV fluids at 75 cc an hour. Monitor kidney function. Continue anticoagulation with Eliquis Continue to hold lisinoprilhydrochlorothiazide Hold metoprolol. Continue telemetry monitoring Smoking cessation encouraged. Patient currently prescribed nicotine patch Further recommendations pending patient course Nurse practitioner note has been reviewed by physician. Signing provider agrees with the documented findings, assessment, and plan of care documented by [employer] as a scribe. 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 History of Any Multi-Drug Resistant Organisms: MRSA, VRE Date of last positivie culture/infection: 01/21/22 MRSA & VRE MDRO Source:: RIGHT Foot Past Surgical History: Orthopedic Surgery Additional Past Surgical History / Comment(s): Amputation of the fourth and fifth toes on the right through the metatarsal heads, multiple I&D to nonhealing wounds on the R foot, repair of perforated ucler of stomach, EGD/colonoscopy, PICC lines in and out. Past Anesthesia/Blood Transfusion Reactions: Motion Sickness Additional Past Anesthesia/Blood Transfusion Reaction / Comment(s): claustrophobia Past Psychological History: ADD/ADHD, Anxiety, Depression Past Alcohol Use History: Unable to Obtain Past Drug Use History: Unable to Obtain - Past Family History Mother Family Medical History: CVA/TIA, Diabetes Mellitus, Vascular Disorder Additional Family Medical History / Comment(s): emotional problems. age 64 of cva Father Family Medical History: Hypertension Additional Family Medical History / Comment(s): age 38 from mva Medications and Allergies Home Medications Medication Instructions Recorded Confirmed Type Citalopram Hydrobromide [CeleXA] 20 mg PO DAILY 09/14/19 01/07/24 History Famotidine [Pepcid] 20 mg PO BID #1 tablet 09/20/19 01/07/24 Rx clonazePAM [KlonoPIN] 0.5 mg PO TID 01/18/22 01/07/24 History HYDROcodone/APAP 10-325MG [[place] 1 tab PO QID 07/17/23 01/07/24 History 10-325] Apixaban [Eliquis] 5 mg PO BID #60 tab 07/21/23 01/07/24 Rx Atorvastatin [Lipitor] 80 mg PO HS #30 tab 07/21/23 01/07/24 Rx Gabapentin 400 mg PO TID #0 07/21/23 01/07/24 Rx Metoprolol Succinate (ER) [Toprol 150 mg PO DAILY #30 tab 07/21/23 01/07/24 Rx XL] risperiDONE [RisperDAL] 1 mg PO DAILY #30 tab 07/21/23 01/07/24 Rx Lisinopril-Hctz 20-12.5 mg 1 tab PO DAILY 01/07/24 01/07/24 History [Zestoretic 20-12.5] Nitroglycerin Sl Tabs [Nitrostat] 0.4 mg SL Q5M PRN 01/07/24 01/07/24 History Pantoprazole [Protonix] 40 mg PO DAILY 01/07/24 01/07/24 History Tamsulosin HCl [Flomax] 0.4 mg PO HS 01/07/24 01/07/24 History risperiDONE [RisperDAL] 2 mg PO HS 01/07/24 01/07/24 History traZODone HCL 150 mg PO HS 01/07/24 01/07/24 History Allergies Allergy/AdvReac Type Severity Reaction Status Date / Time Penicillins Allergy Dyspnea, Verified 01/07/24 16:41 HIVES, THROAT SWELLING Physical Exam Vitals: Vital Signs Temp Pulse Resp BP Pulse Ox 01/08/24 07:37 73 16 115/77 95 01/08/24 07:00 51 L 16 97/52 01/08/24 06:00 102/68 97 01/08/24 04:00 68 16 102/57 95 01/08/24 03:00 75 20 123/73 97 01/08/24 02:00 72 18 107/83 97 01/08/24 01:42 89 16 117/68 97 01/08/24 01:00 72 16 122/76 01/08/24 00:49 78 16 87/59 93 L 01/08/24 00:23 69/45 01/08/24 00:22 75 16 73/44 92 L 01/08/24 00:07 77 20 105/59 96 01/07/24 23:08 77 18 104/76 95 01/07/24 22:45 78 18 99/65 95 01/07/24 22:15 70 16 85/57 96 01/07/24 21:45 77 16 80/50 95 01/07/24 21:30 73 18 75/50 96 01/07/24 21:07 102/71 01/07/24 21:01 78 20 91/58 96 01/07/24 19:08 68 20 95/63 99 01/07/24 16:48 85/69 01/07/24 16:41 71 18 87/54 99 01/07/24 15:19 97.7 F 69 18 71/51 98 Intake and Output 01/07/24 01/08/24 01/08/24 22:59 06:59 14:59 Other: Weight 90.718 kg Results 01/08/24 08:00 01/08/24 08:00 Cardiac Enzymes 01/07/24 01/07/24 01/07/24 Range/Units 15:41 15:41 19:21 AST 48 (17-59) U/L Troponin I 0.157 H* 0.126 H* (0.000-0.034) ng/mL 01/08/24 Range/Units 00:25 AST (17-59) U/L Troponin I 0.097 H* (0.000-0.034) ng/mL Coagulation 01/07/24 Range/Units 15:41 PT 12.3 (10.0-12.5) sec APTT 32.1 H (22.0-30.0) sec CBC 01/07/24 Range/Units 15:41 WBC 12.9 H (3.8-10.6) k/uL RBC 3.08 L (4.30-5.90) m/uL Hgb 9.7 L (13.0-17.5) gm/dL Hct 28.3 L (39.0-53.0) % Plt Count 127 L (150-450) k/uL Comprehensive Metabolic Panel 01/07/24 Range/Units 15:41 Sodium 133 L (137-145) mmol/L Potassium 3.8 (3.5-5.1) mmol/L Chloride 103 (98-107) mmol/L Carbon Dioxide 23 (22-30) mmol/L BUN 44 H (9-20) mg/dL Creatinine 3.01 H (0.66-1.25) mg/dL Glucose 123 H (74-99) mg/dL Calcium 8.2 L (8.4-10.2) mg/dL AST 48 (17-59) U/L ALT 15 (4-49) U/L Alkaline Phosphatase 55 (38-126) U/L Total Protein 5.9 L (6.3-8.2) g/dL Albumin 3.1 L (3.5-5.0) g/dL Current Medications Generic Name Dose Route Start Last Admin Trade Name Freq PRN Reason Stop Dose Admin Hydrocodone Bitart/Acetaminophen 1 each 01/07/24 20:27 01/08/24 03:27 Hydrocodone/Apap 10-325mg 1 Each Tab PO 1 each QID PRN Administration Pain Apixaban 2.5 mg 01/07/24 21:00 01/07/24 21:03 Apixaban 2.5 Mg Tablet PO 2.5 mg BID INGA Administration Protocol Atorvastatin Calcium 80 mg 01/07/24 21:00 01/07/24 21:03 Atorvastatin 80 Mg Tab PO 80 mg HS INGA Administration Citalopram Hydrobromide 20 mg 01/08/24 09:00 Citalopram Hydrobromide 20 Mg Tab PO DAILY INGA Clonazepam 0.5 mg 01/07/24 20:32 Clonazepam 0.5 Mg Tab PO TID PRN Anxiety Enoxaparin Sodium 40 mg 01/07/24 20:45 01/07/24 21:04 Enoxaparin 40 Mg/0.4 Ml Syringe SQ 40 mg DAILY INGA Administration Gabapentin 400 mg 01/08/24 01:45 01/08/24 01:55 Gabapentin 400 Mg Cap PO 400 mg HS INGA Administration Sodium Chloride 1,000 mls @ 130 mls/hr 01/07/24 18:00 01/08/24 03:42 Saline 0.9% IV 130 mls/hr .Q7H42M INGA Administration Midodrine 2.5 mg 01/08/24 07:30 01/08/24 00:47 Midodrine 5 Mg Tab PO 2.5 mg AC-TID INGA Administration Naloxone HCl 0.2 mg 01/07/24 17:57 Naloxone 0.4 Mg/Ml 1 Ml Vial IV Q2M PRN Opioid Reversal Nicotine 1 patch 01/08/24 09:00 Nicotine 21mg/24hr Patch TRANSDERM DAILY INGA Pantoprazole Sodium 40 mg 01/08/24 09:00 Pantoprazole 40 Mg Tablet PO DAILY INGA Risperidone 1 mg 01/08/24 09:00 Risperidone 1 Mg Tab PO DAILY INGA Risperidone 2 mg 01/07/24 21:00 01/07/24 22:02 Risperidone 2 Mg Tab PO 2 mg HS INGA Administration Tamsulosin HCl 0.4 mg 01/07/24 21:00 01/07/24 21:03 Tamsulosin 0.4 Mg Cap.Er.24h PO 0.4 mg HS IGNA Administration Intake and Output 01/07/24 01/08/24 01/08/24 22:59 06:59 14:59 Other: Weight 90.718 kg 01/07/24 15:41 01/07/24 15:41
--- NOTE | 2024-01-08 14:55 | P.HPIM ---
History of Present Illness H&P Date: 01/07/24 Chief Complaint: Lethargy This is a pleasant 68-year-old patient of Dr. Mustafa. Chronic stable medical conditions include COPD, peripheral artery disease, GERD, hypertension, bipolar disorder., peripheral Neuropathy from alcoholism. heavy drinking up to 2018. Patient continues to smoke. brother Sotero - legal guardian. Patient has chronic foot wounds for which he follows at the wound care center. Patient does wear special shoes. Follows Dr. Akbar in the wound care center. Cardiac catheterization July 2023 showed nonobstructive disease Patient seen by visiting nurses was found to have hypotension. Feels tired rundown. Decreased appetite. Denies any fever and chills. Review of systems: GEN.: Tired EYES: None HEENT: None NECK: None RESPIRATORY: [Occasional cough CARDIOVASCULAR: None GASTROINTESTINAL: None GENITOURINARY: None MUSCULOSKELETAL: Joint pains, left foot wound LYMPHATICS: None HEMATOLOGICAL: None PSYCHIATRY: None NEUROLOGICAL: Numbness in the feet Past medical history to include: COPD, PAD, foot wounds, GERD, hypertension, bipolar disorder, peripheral neuropathy from alcoholism Social history: Stopped drinking heavy alcohol in 2018. Long-standing smoker currently down to few cigarettes a day. Brother Sotero legal guardian. Lives alone. Has some home help. Physical examination: VITAL SIGNS: 97.7, 69, 18, 87/54, 99% room air GENERAL: Laying in bed, tired EYES: Pupils equal. Conjunctiva normal. HEENT: External appearance of nose and ears normal, oral cavity grossly normal. NECK: JVD not raised; masses not palpable. HEART: First and second heart sounds are normal; no edema. LUNGS: Respiratory rate normal; decreased breath sounds. ABDOMEN: Soft, nontender, liver spleen not palpable, no masses palpable. PSYCH: Answering questions appropriately MUSCULOSKELETAL:No Clubbing/cyanosis;muscles-grossly intact. Amputation of the fourth and fifth toe on the right to the metatarsal head. Wound in both the feet. Pictures in chart NEUROLOGICAL: Cranial nerves grossly intact; no facial asymmetry, power grossly intact. Decreased sensation distally. INVESTIGATIONS, reviewed in the clinical context: January 06: White count 12.9 hemoglobin 9.7 platelets 127 sodium 133 potassium 3.8 BUN 44 creatinine 3.01 Troponin I 0.157, 0.126 EKG tracing personally reviewed by co-atrial fibrillation. Rate 67 Chest x-ray film personally reviewed by me-cardiomegaly Previous investigations Creatinine 1.13 on July 2023 Cardiac catheterization: July 2023 minimal nonobstructive disease Assessment and plan: Acute hypotension from probably decreased fluid intake associated with acute kidney injury IV fluids -Acute kidney injury, felt to be combination of ATN and prerenal. IV fluids. Follow renal function -Bilateral foot , pressure ulcer wounds especially in the plantar aspect deep in a patient with known peripheral artery disease and peripheral neuropathy, underlying Charcot foot: Changes felt to be chronic. Follows at the wound care center with Dr. Akbar. Dr. Ramos from vascular consulted -COPD in a current smoker DuoNeb as needed -Chronic nicotine dependence cigarette smoker Nicotine patch 7 -Persistent atrial fibrillation, rate controlled Due to hypotension hold off Toprol-XL for now. - chronic kidney disease stage 3 from nephrosclerosis creatinine was 1.13 in July 2023 -GERD PPI -Essential Hypertension: Currently hypotensive Hold antihypertensives -Bipolar disorder, psychosis: Risperdal 2 mg at night and 1 mg in the morning -Painful Peripheral neuropathy secondary to history of alcoholism: Controlled Neurontin cut back to 4 mg nightly because of renal function -Charcot foot -Full code -Legal guardian: Daquan Linda was discussed with the patient. Questions answered. 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 History of Any Multi-Drug Resistant Organisms: MRSA, VRE Date of last positivie culture/infection: 01/21/22 MRSA & VRE MDRO Source:: RIGHT Foot Past Surgical History: Orthopedic Surgery Additional Past Surgical History / Comment(s): Amputation of the fourth and fifth toes on the right through the metatarsal heads, multiple I&D to nonhealing wounds on the R foot, repair of perforated ucler of stomach, EGD/colonoscopy, PICC lines in and out. Past Anesthesia/Blood Transfusion Reactions: Motion Sickness Additional Past Anesthesia/Blood Transfusion Reaction / Comment(s): claustrophobia Past Psychological History: ADD/ADHD, Anxiety, Depression Past Alcohol Use History: Unable to Obtain Past Drug Use History: Unable to Obtain - Past Family History Mother Family Medical History: CVA/TIA, Diabetes Mellitus, Vascular Disorder Additional Family Medical History / Comment(s): emotional problems. age 64 of cva Father Family Medical History: Hypertension Additional Family Medical History / Comment(s): age 38 from mva Medications and Allergies Home Medications Medication Instructions Recorded Confirmed Type Citalopram Hydrobromide [CeleXA] 20 mg PO DAILY 09/14/19 01/07/24 History Famotidine [Pepcid] 20 mg PO BID #1 tablet 09/20/19 01/07/24 Rx clonazePAM [KlonoPIN] 0.5 mg PO TID 01/18/22 01/07/24 History HYDROcodone/APAP 10-325MG [[place] 1 tab PO QID 07/17/23 01/07/24 History 10-325] Apixaban [Eliquis] 5 mg PO BID #60 tab 07/21/23 01/07/24 Rx Atorvastatin [Lipitor] 80 mg PO HS #30 tab 07/21/23 01/07/24 Rx Gabapentin 400 mg PO TID #0 07/21/23 01/07/24 Rx Metoprolol Succinate (ER) [Toprol 150 mg PO DAILY #30 tab 07/21/23 01/07/24 Rx XL] risperiDONE [RisperDAL] 1 mg PO DAILY #30 tab 07/21/23 01/07/24 Rx Lisinopril-Hctz 20-12.5 mg 1 tab PO DAILY 01/07/24 01/07/24 History [Zestoretic 20-12.5] Nitroglycerin Sl Tabs [Nitrostat] 0.4 mg SL Q5M PRN 01/07/24 01/07/24 History Pantoprazole [Protonix] 40 mg PO DAILY 01/07/24 01/07/24 History Tamsulosin HCl [Flomax] 0.4 mg PO HS 01/07/24 01/07/24 History risperiDONE [RisperDAL] 2 mg PO HS 01/07/24 01/07/24 History traZODone HCL 150 mg PO HS 01/07/24 01/07/24 History Allergies Allergy/AdvReac Type Severity Reaction Status Date / Time Penicillins Allergy Dyspnea, Verified 01/07/24 16:41 HIVES, THROAT SWELLING Physical Exam Vitals: Vital Signs Temp Pulse Resp BP Pulse Ox 01/07/24 19:08 68 20 95/63 99 01/07/24 16:48 85/69 01/07/24 16:41 71 18 87/54 99 01/07/24 15:19 97.7 F 69 18 71/51 98 Intake and Output 01/07/24 01/07/24 01/07/24 06:59 14:59 22:59 Other: Weight 90.718 kg Results CBC & Chem 7: 01/08/24 08:00 01/08/24 08:00 Labs: Abnormal Lab Results - Last 24 Hours (Table) 01/07/24 01/07/24 01/07/24 Range/Units 15:41 15:41 15:41 WBC 12.9 H (3.8-10.6) k/uL RBC 3.08 L (4.30-5.90) m/uL Hgb 9.7 L (13.0-17.5) gm/dL Hct 28.3 L (39.0-53.0) % Plt Count 127 L (150-450) k/uL Neutrophils # 11.4 H (1.3-7.7) k/uL Lymphocytes # 0.7 L (1.0-4.8) k/uL APTT 32.1 H (22.0-30.0) sec Sodium 133 L (137-145) mmol/L BUN 44 H (9-20) mg/dL Creatinine 3.01 H (0.66-1.25) mg/dL Glucose 123 H (74-99) mg/dL Calcium 8.2 L (8.4-10.2) mg/dL Troponin I (0.000-0.034) ng/mL Total Protein 5.9 L (6.3-8.2) g/dL Albumin 3.1 L (3.5-5.0) g/dL 01/07/24 01/07/24 Range/Units 15:41 19:21 WBC (3.8-10.6) k/uL RBC (4.30-5.90) m/uL Hgb (13.0-17.5) gm/dL Hct (39.0-53.0) % Plt Count (150-450) k/uL Neutrophils # (1.3-7.7) k/uL Lymphocytes # (1.0-4.8) k/uL APTT (22.0-30.0) sec Sodium (137-145) mmol/L BUN (9-20) mg/dL Creatinine (0.66-1.25) mg/dL Glucose (74-99) mg/dL Calcium (8.4-10.2) mg/dL Troponin I 0.157 H* 0.126 H* (0.000-0.034) ng/mL Total Protein (6.3-8.2) g/dL Albumin (3.5-5.0) g/dL
--- NOTE | 2024-01-08 14:59 | P.PN ---
Progress Note - Text Progress Note Date: 01/08/24 Chief Complaint: Lethargy This is a pleasant 68-year-old patient of Dr. Mustafa. Chronic stable medical conditions include COPD, peripheral artery disease, GERD, hypertension, bipolar disorder., peripheral Neuropathy from alcoholism. heavy drinking up to 2018. Patient continues to smoke. brother Sotero - legal guardian. Patient has chronic foot wounds for which he follows at the wound care center. Patient does wear special shoes. Follows Dr. Akbar in the wound care center. Cardiac catheterization July 2023 showed nonobstructive disease Patient seen by visiting nurses was found to have hypotension. Feels tired rundown. Decreased appetite. Denies any fever and chills. January 07: Admitted with acute kidney injury/ATN. Given IV fluids. Antihypertensives were held. Feeling a bit better this morning. Denies any pain. Hypotension a bit better. Will add small dose of Lopressor starting tonight. Continue with IV fluids. Active Medications Hydrocodone Bitart/Acetaminophen (Hydrocodone/Apap 10-325mg 1 Each Tab) 1 each PO QID PRN PRN Reason: Pain Last Admin: 01/08/24 03:27 Dose: 1 each Apixaban (Apixaban 5 Mg Tab) 5 mg PO BID [facility]; Protocol Atorvastatin Calcium (Atorvastatin 80 Mg Tab) 80 mg PO [facility] Last Admin: 01/07/24 21:03 Dose: 80 mg Citalopram Hydrobromide (Citalopram Hydrobromide 20 Mg Tab) 20 mg PO DAILY [facility] Last Admin: 01/08/24 08:20 Dose: 20 mg Clonazepam (Clonazepam 0.5 Mg Tab) 0.5 mg PO TID PRN PRN Reason: Anxiety Gabapentin (Gabapentin 400 Mg Cap) 400 mg PO HS [facility] Last Admin: 01/08/24 01:55 Dose: 400 mg Sodium Chloride (Saline 0.9%) 1,000 mls @ 75 mls/hr IV .[id number] [facility] Last Admin: 01/08/24 08:21 Dose: 75 mls/hr Naloxone HCl (Naloxone 0.4 Mg/Ml 1 Ml Vial) 0.2 mg IV Q2M PRN PRN Reason: Opioid Reversal Nicotine (Nicotine 21mg/24hr Patch) 1 patch TRANSDERM DAILY [facility] Last Admin: 01/08/24 08:20 Dose: 1 patch Pantoprazole Sodium (Pantoprazole 40 Mg Tablet) 40 mg PO DAILY [facility] Last Admin: 01/08/24 08:20 Dose: 40 mg Risperidone (Risperidone 1 Mg Tab) 1 mg PO DAILY [facility] Last Admin: 01/08/24 08:20 Dose: 1 mg Risperidone (Risperidone 2 Mg Tab) 2 mg PO [facility] Last Admin: 01/07/24 22:02 Dose: 2 mg Tamsulosin HCl (Tamsulosin 0.4 Mg Cap.Er.24h) 0.4 mg PO [facility] Last Admin: 01/07/24 21:03 Dose: 0.4 mg Past medical history to include: COPD, PAD, foot wounds, GERD, hypertension, bipolar disorder, peripheral neuropathy from alcoholism Social history: Stopped drinking heavy alcohol in 2018. Long-standing smoker currently down to few cigarettes a day. Brother Sotero legal guardian. Lives alone. Has some home help. Physical examination: VITAL SIGNS: Afebrile, 71, 16, 105/66, 99% room air GENERAL: Laying in bed, tired EYES: Pupils equal. Conjunctiva normal. HEENT: External appearance of nose and ears normal, oral cavity grossly normal. NECK: JVD not raised; masses not palpable. HEART: First and second heart sounds are normal; no edema. LUNGS: Respiratory rate normal; decreased breath sounds. ABDOMEN: Soft, nontender, liver spleen not palpable, no masses palpable. PSYCH: Answering questions appropriately MUSCULOSKELETAL:No Clubbing/cyanosis;muscles-grossly intact. Amputation of the fourth and fifth toe on the right to the metatarsal head. Wound in both the feet. Pictures in chart NEUROLOGICAL: Cranial nerves grossly intact; no facial asymmetry, power grossly intact. Decreased sensation distally. INVESTIGATIONS, reviewed in the clinical context: January 07: White count 9.5 hemoglobin 9.9 platelets 125 sodium 135 potassium 3.9 BUN 36 creatinine 2.16 January 06: White count 12.9 hemoglobin 9.7 platelets 127 sodium 133 potassium 3.8 BUN 44 creatinine 3.01 Troponin I 0.157, 0.126 EKG tracing personally reviewed by me-atrial fibrillation. Rate 67 Chest x-ray film personally reviewed by me-cardiomegaly Previous investigations Creatinine 1.13 on July 2023 Cardiac catheterization: July 2023 minimal nonobstructive disease Assessment and plan: Acute hypotension from probably decreased fluid intake associated with acute kidney injury: Slow to respond IV fluids at 75 cc an hour -Acute kidney injury, felt to be combination of ATN and prerenal.: Slow to respond IV fluids. Follow renal function -Bilateral foot , pressure ulcer wounds especially in the plantar aspect deep in a patient with known peripheral artery disease and peripheral neuropathy, underlying Charcot foot: Changes felt to be chronic. Follows at the wound care center with Dr. Akbar. Dr. Ramos from vascular consulted -COPD in a current smoker DuoNeb as needed -Chronic nicotine dependence cigarette smoker Nicotine patch 7 -Persistent atrial fibrillation, rate controlled Due to hypotension hold off Toprol-XL for now. Start Lopressor 12.5 p.o. twice daily - chronic kidney disease stage 3 from nephrosclerosis creatinine was 1.13 in July 2023 -GERD PPI -Essential Hypertension: Currently hypotensive Hold antihypertensives -Bipolar disorder, psychosis: Risperdal 2 mg at night and 1 mg in the morning -Painful Peripheral neuropathy secondary to history of alcoholism: Controlled Neurontin cut back to 400 mg nightly because of renal function -Charcot foot -Full code -Legal guardian: Daquan Start Lopressor 12.5 twice daily. Other medications to continue. Follow labs. Past Medical History Past Medical History: COPD, GERD/Reflux, Hyperlipidemia, Hypertension, Pneum onia, Skin Disorder, Vascular Disorder Additional Past Medical History / Comment(s): ETOH abuse, DT's, pancreatitis, chronic pain, PVD, PAD, neuropathy bilateral legs/feet and hands, past nonhealing wounds bilateral feet-past wound care center, 2006 osteomylitis L foot, chronic pain bilateral feet/legs and upper back-pt states he had thoracic vertebrae injury in past, peptic ulcer with surgery, psoriasis, sinus problems, past L clavicular fracture, acute renal failure, electrolyte disturbance. History of Any Multi-Drug Resistant Organisms: MRSA, VRE Date of last positivie culture/infection: 01/21/22 MRSA & VRE MDRO Source:: RIGHT Foot Past Surgical History: Orthopedic Surgery Additional Past Surgical History / Comment(s): Amputation of the fourth and fifth toes on the right through the metatarsal heads, multiple I&D to nonhealing wounds on the R foot, repair of perforated ucler of stomach, EGD/colonoscopy, PICC lines in and out. Past Anesthesia/Blood Transfusion Reactions: Motion Sickness Additional Past Anesthesia/Blood Transfusion Reaction / Comment(s): claustrophobia Past Psychological History: ADD/ADHD, Anxiety, Depression Past Alcohol Use History: Unable to Obtain Past Drug Use History: Unable to Obtain
--- NOTE | 2024-01-08 18:17 | P.GSCN ---
History of Present Illness History of present illness: 68-year-old gentleman patient has a history of acute hypotension patient has been admitted patient history of chronic callus formation noted both lower extremities patient goes to the wound clinic at [facility] for local wound care. Medical history history of COPD hypertension peripheral vascular disease Personal history history of smoking and drinking Patient was seen in his room lying comfortably in bed neck is supple no bruit appreciated Chest is clear good air entry both lungs. Second sound present Abdomen soft nontender vascular femorals are 1+ bilateral patient has a right fo ot third fourth and fifth toe amputation done in the past patient has a callus on the plantar aspect aspect of her right foot negative for drainage or redness Left foot has a callus on the plantar aspect no drainage or redness noted patient has been using Hydrofera Blue which should be continued dressing be changed on Thursday will follow with you Past Medical History Past Medical History: COPD, GERD/Reflux, Hyperlipidemia, Hypertension, Pneumonia, Skin Disorder, Vascular Disorder Additional Past Medical History / Comment(s): ETOH abuse, DT's, pancreatitis, chronic pain, PVD, PAD, neuropathy bilateral legs/feet and hands, past nonhealing wounds bilateral feet-past wound care center, 2006 osteomylitis L foot, chronic pain bilateral feet/legs and upper back-pt states he had thoracic vertebrae injury in past, peptic ulcer with surgery, psoriasis, sinus problems, past L clavicular fracture, acute renal failure, electrolyte disturbance. History of Any Multi-Drug Resistant Organisms: MRSA, VRE Year Discovered:: 01/21/22 MRSA & VRE MDRO Source:: RIGHT Foot Past Surgical History: Orthopedic Surgery Additional Past Surgical History / Comment(s): Amputation of the fourth and fifth toes on the right through the metatarsal heads, multiple I&D to nonhealing wounds on the R foot, repair of perforated ucler of stomach, EGD/colonoscopy, PICC lines in and out. Past Anesthesia/Blood Transfusion Reactions: Motion Sickness Additional Past Anesthesia/Blood Transfusion Reaction / Comm: claustrophobia Past Psychological History: ADD/ADHD, Anxiety, Depression Past Alcohol Use History: Unable to Obtain Past Drug Use History: Unable to Obtain - Past Family History Mother Family Medical History: CVA/TIA, Diabetes Mellitus, Vascular Disorder Additional Family Medical History / Comment(s): emotional problems. age 64 of cva Father Family Medical History: Hypertension Additional Family Medical History / Comment(s): age 38 from mva Medications and Allergies Home Medications Medication Instructions Recorded Confirmed Type Citalopram Hydrobromide [CeleXA] 20 mg PO DAILY 09/14/19 01/07/24 History Famotidine [Pepcid] 20 mg PO BID #1 tablet 09/20/19 01/07/24 Rx clonazePAM [KlonoPIN] 0.5 mg PO TID 01/18/22 01/07/24 History HYDROcodone/APAP 10-325MG [[place] 1 tab PO QID 07/17/23 01/07/24 History 10-325] Apixaban [Eliquis] 5 mg PO BID #60 tab 07/21/23 01/07/24 Rx Atorvastatin [Lipitor] 80 mg PO HS #30 tab 07/21/23 01/07/24 Rx Gabapentin 400 mg PO TID #0 07/21/23 01/07/24 Rx Metoprolol Succinate (ER) [Toprol 150 mg PO DAILY #30 tab 07/21/23 01/07/24 Rx XL] risperiDONE [RisperDAL] 1 mg PO DAILY #30 tab 07/21/23 01/07/24 Rx Lisinopril-Hctz 20-12.5 mg 1 tab PO DAILY 01/07/24 01/07/24 History [Zestoretic 20-12.5] Nitroglycerin Sl Tabs [Nitrostat] 0.4 mg SL Q5M PRN 01/07/24 01/07/24 History Pantoprazole [Protonix] 40 mg PO DAILY 01/07/24 01/07/24 History Tamsulosin HCl [Flomax] 0.4 mg PO HS 01/07/24 01/07/24 History risperiDONE [RisperDAL] 2 mg PO HS 01/07/24 01/07/24 History traZODone HCL 150 mg PO HS 01/07/24 01/07/24 History Allergies Allergy/AdvReac Type Severity Reaction Status Date / Time Penicillins Allergy Dyspnea, Verified 01/07/24 16:41 HIVES, THROAT SWELLING Surgical - Exam Vital Signs Temp Pulse Resp BP Pulse Ox 97.7 F 69 18 71/51 98 01/07/24 15:19 01/07/24 15:19 01/07/24 15:19 01/07/24 15:19 01/07/24 15:19 Results - Labs 01/08/24 08:00 01/08/24 08:00 Abnormal Lab Results - Last 24 Hours (Table) 01/07/24 01/07/24 01/08/24 Range/Units 19:21 21:45 00:25 RBC (4.30-5.90) m/uL Hgb (13.0-17.5) gm/dL Hct (39.0-53.0) % Plt Count (150-450) k/uL Neutrophils # (1.3-7.7) k/uL Sodium (137-145) mmol/L Chloride (98-107) mmol/L Carbon Dioxide (22-30) mmol/L BUN (9-20) mg/dL Creatinine (0.66-1.25) mg/dL Glucose (74-99) mg/dL Calcium (8.4-10.2) mg/dL Troponin I 0.126 H* 0.097 H* (0.000-0.034) ng/mL Urine Protein Trace H (Negative) Amorphous Sediment Rare H (None) /hpf Hyaline Casts 24 H (0-2) /lpf Urine Mucus Rare H (None) /hpf 01/08/24 01/08/24 Range/Units 08:00 08:00 RBC 3.10 L (4.30-5.90) m/uL Hgb 9.9 L (13.0-17.5) gm/dL Hct 28.7 L (39.0-53.0) % Plt Count 125 L (150-450) k/uL Neutrophils # 7.8 H (1.3-7.7) k/uL Sodium 135 L (137-145) mmol/L Chloride 108 H (98-107) mmol/L Carbon Dioxide 21 L (22-30) mmol/L BUN 36 H (9-20) mg/dL Creatinine 2.16 H (0.66-1.25) mg/dL Glucose 114 H (74-99) mg/dL Calcium 8.3 L (8.4-10.2) mg/dL Troponin I (0.000-0.034) ng/mL Urine Protein (Negative) Amorphous Sediment (None) /hpf Hyaline Casts (0-2) /lpf Urine Mucus (None) /hpf Diabetes panel 01/08/24 Range/Units 08:00 Sodium 135 L (137-145) mmol/L Potassium 3.9 (3.5-5.1) mmol/L Chloride 108 H (98-107) mmol/L Carbon Dioxide 21 L (22-30) mmol/L BUN 36 H (9-20) mg/dL Creatinine 2.16 H (0.66-1.25) mg/dL Glucose 114 H (74-99) mg/dL Calcium 8.3 L (8.4-10.2) mg/dL Calcium panel 01/08/24 Range/Units 08:00 Calcium 8.3 L (8.4-10.2) mg/dL Pituitary panel 01/08/24 Range/Units 08:00 Sodium 135 L (137-145) mmol/L Potassium 3.9 (3.5-5.1) mmol/L Chloride 108 H (98-107) mmol/L Carbon Dioxide 21 L (22-30) mmol/L BUN 36 H (9-20) mg/dL Creatinine 2.16 H (0.66-1.25) mg/dL Glucose 114 H (74-99) mg/dL Calcium 8.3 L (8.4-10.2) mg/dL Adrenal panel 01/08/24 Range/Units 08:00 Sodium 135 L (137-145) mmol/L Potassium 3.9 (3.5-5.1) mmol/L Chloride 108 H (98-107) mmol/L Carbon Dioxide 21 L (22-30) mmol/L BUN 36 H (9-20) mg/dL Creatinine 2.16 H (0.66-1.25) mg/dL Glucose 114 H (74-99) mg/dL Calcium 8.3 L (8.4-10.2) mg/dL
--- NOTE | 2024-01-08 18:40 | CA ---
Transthoracic Echo Report Name: Valentin Dale Age: 68 Gender: M : 1955 Exam Date: 01/08/2024 15:49 Exam Location: [place] [facility] Ht (in): 72 Wt (lb): 200 Ordering Physician: Ruth Riggins Attending/Referring Phys: [id number], Vaishnavi Destination Imagination Coordinator Anabela Kumar RDCS Procedure CPT: Indications: LV function, abnormal trops Cardiac Hx: Technical Quality: Technically difficult study Contrast 1: Definity Total Dose (mL): 2 Contrast 2: Total Dose (mL): MEASUREMENTS (Male / Female) Normal Values 2D ECHO LV Diastolic Diameter PLAX 5.3 cm 4.2 - 5.9 / 3.9 - 5.3 cm LV Systolic Diameter PLAX 4.2 cm IVS Diastolic Thickness 1.1 cm 0.6 - 1.0 / 0.6 - 0.9 cm LVPW Diastolic Thickness 1.0 cm 0.6 - 1.0 / 0.6 - 0.9 cm LV Relative Wall Thickness 0.4 LVOT Diameter 2.5 cm LV Diastolic Volume MOD BP 167.1 cm??? 67 - 155 / 56 - 104 cm??? LV Systolic Volume MOD BP 81.8 cm??? 22 - 58 / 19 - 49 cm??? LV Ejection Fraction MOD BP 51.1 % >= 55 % LV Cardiac Index MOD BP 2922.3 cm???/min???m??? LV Diastolic Volume MOD 4C 168.1 cm??? LV Systolic Volume MOD 4C 83.6 cm??? LV Ejection Fraction MOD 4C 50.2 % LV Cardiac Index MOD 4C 2893.7 cm???/min???m??? LV Diastolic Length 4C 9.1 cm LV Systolic Length 4C 8.0 cm LV Diastolic Volume MOD 2C 162.1 cm??? LV Systolic Volume MOD 2C 75.6 cm??? LV Ejection Fraction MOD 2C 53.3 % LV Cardiac Index MOD 2C 2962.2 cm???/min???m??? LV Diastolic Length 2C 9.4 cm LV Systolic Length 2C 7.5 cm FINDINGS Left Ventricle Left ventricular ejection fraction is estimated at 50 %. Mildly increased septal wall thickness. Mildly increased left ventricular diastolic volume. Moderately increased left ventricular systolic volume. Mildly decreased left ventricular ejection fraction. Right Ventricle Right ventricular dilatation with normal function. Right Atrium Normal right atrial size. Left Atrium Mild left atrial dilatation by visual. Mitral Valve Mitral valve thickened. Mitral annular calcification. No evidence for mitral valve prolapse. No mitral stenosis. Trace mitral regurgitation. Aortic Valve Trileaflet aortic valve. [id number] aortic regurgitation. No aortic stenosis. Tricuspid Valve Structurally normal tricuspid valve. No tricuspid stenosis. Trace tricuspid regurgitation. Pulmonic Valve Structurally normal pulmonic valve. No pulmonic stenosis. No pulmonic regurgitation. Pericardium No pericardial effusion. Aorta Normal size aortic root and proximal ascending aorta. CONCLUSIONS The ejection fraction is about 50%. Aortic valve is thickened with moderate aortic insufficiency with an eccentric jet The mitral valve is thickened as well with mild mitral regurgitation Previewed by: Dr. Jurgen Boykin MD (Electronically Signed) Final Date: 08 Jan 2024 18:40
[2024-01-08] MEDS: METOPROLOL TARTRATE 12.5 MG TAB PO SCH (19:47)
[2024-01-08] MEDS: APIXABAN 5 MG TAB PO SCH (19:47)
[2024-01-09 07:56] LABS: African American GFR (CKD) 54 (>60 ml/min/1.73 sqM); Anion Gap 4 mmol/L; Blood Urea Nitrogen 22 mg/dL (9-20); Calcium 8.4 mg/dL (8.4-10.2); Carbon Dioxide 24 mmol/L (22-30); Chloride 108 mmol/L (98-107); Glucose 95 mg/dL (74-99); Non-African American GFR(CKD) 47 (>60 ml/min/1.73 sqM); Potassium 3.9 mmol/L (3.5-5.1); Sodium 136 mmol/L (137-145)
--- NOTE | 2024-01-09 11:15 | P.PN ---
Subjective HISTORY OF PRESENT ILLNESS: This is a 68-year-old male with a past medical history significant for atrial fibrillation, hyperlipidemia, hypertension, mild CAD, and nicotine dependence. Patient does not follow in the office with a offensive coordinator. We have been asked to see the patient in consultation for elevated troponin and acute kidney injury. Patient examined at the bedside in the emergency room. Patient states he presented to the hospital because his blood pressure was running low. Patient states that he felt tired and had mild dizziness. He denied any chest pain or pressure. He denied any swelling to his lower extremities. He denied having any syncopal episodes. Patient states he is not very active at home. He denies any caffeine use or alcohol use. He does report having a mild cough at home but no fever. No nausea or vomiting. He is a current cigarette smoker and smokes 3/4 of a pack a day. The patient does have a history of atrial fibrillation and is anticoagulated on an outpatient basis. Patient was also found to have a acute kidney injury with a creatinine of 3.01 on admission. Repeat this morning 2.16. Patient was hypotensive upon admission which has since resolved. Most recent blood pressure 103/74. DIAGNOSTICS: - EKG reveals atrial fibrillation with controlled ventricular rate - Chest xray possible small pneumonic infiltrate in one of the lung bases posteriorly - Laboratory data: WBC 9.5. Hemoglobin 9.9. Platelet count 125. Sodium 135. Potassium 3.9. BUN 36. Creatinine 2.16. Troponin 0.157. 0.126. 0.097. Lactic acid 1.6. - Current home cardiac medications include metoprolol succinate 150 mg a day, lisinoprilhydrochlorothiazide 20-12.5 mg daily, Lipitor 80 mg at night, Eliquis 5 mg twice a day. - Most recent echocardiogram obtained in July 2023 reveals ejection fraction 55 to 60%, mild pulmonary hypertension, mild aortic regurgitation, mild aortic stenosis, trace MR, mild TR. - Cardiac catheterization history: July [address] Billy revealing mild nonobstructive disease 01/09/2024 Patient examined this morning at the bedside. Patient denies chest pain or pressure. He denies shortness of breath. Creatinine has improved today to 1.52, down from 2.1 yesterday. He remains on IV fluids at 75 cc an hour. Echocardiogram completed revealing ejection fraction 50% with moderate aortic insufficiency. Patient did have 1 isolated elevated blood pressure reading however the remainder of his blood pressures have been well-controlled. PHYSICAL EXAM: VITAL SIGNS: Reviewed. GENERAL: Well-developed in no acute distress. HEENT: Head is normocephalic. Pupils are equal, round. Sclerae anicteric. Mucous membranes of the mouth are moist. Neck supple. No JVD or thyromegaly LUNGS: Respirations even and unlabored. Lungs essentially clear to auscultation bilaterally. HEART: Regular rate and rhythm. S1 and S2 heard. Systolic murmur noted. ABDOMEN: Soft. Nondistended. Nontender. EXTREMITIES: Normal range of motion. No clubbing or cyanosis. Peripheral pulses intact. No lower extremity edema NEUROLOGIC: Awake and alert. Oriented x 3. ASSESSMENT: Hypotension, resolved Acute kidney injury Elevated troponins, suspect secondary to acute kidney injury, no evidence of acute coronary syndrome Paroxysmal atrial fibrillation Mild coronary artery disease, per cardiac catheterization July 2023 Moderate aortic insufficiency Hypertension Hyperlipidemia Nicotine dependence PLAN: Continue IV fluids. Monitor kidney function. Continue anticoagulation with Eliquis Continue to hold lisinoprilhydrochlorothiazide Patient has been resumed on lower dose metoprolol Smoking cessation encouraged. Patient currently prescribed nicotine patch Further recommendations pending patient course Nurse practitioner note has been reviewed by physician. Signing provider agrees with the documented findings, assessment, and plan of care documented by FASHION PATTERNMAKER as a scribe. Objective - Vital Signs Vital signs: Vital Signs Temp 97.6 F 01/09/24 08:39 Pulse 58 L 01/09/24 08:42 Resp 16 01/09/24 08:42 BP 127/77 01/09/24 08:39 Pulse Ox 99 01/09/24 08:39 FiO2 Intake & Output 01/08/24 01/09/24 01/09/24 18:59 06:59 18:59 Intake Total 118 Output Total 400 850 500 Balance -282 -850 -500 Weight 90.718 kg Intake: Oral 118 Output: Urine 400 850 500 Other: Voiding Method Urinal Urinal - Labs CBC & Chem 7: 01/08/24 08:00 01/09/24 06:59 Labs: Abnormal Lab Results - Last 24 Hours (Table) 01/09/24 Range/Units 06:59 Sodium 136 L (137-145) mmol/L Chloride 108 H (98-107) mmol/L BUN 22 H (9-20) mg/dL Creatinine 1.52 H (0.66-1.25) mg/dL Microbiology - Last 24 Hours (Table) 01/07/24 17:30 Blood Culture - Preliminary Blood 01/07/24 17:15 Blood Culture - Preliminary Blood
--- NOTE | 2024-01-09 13:21 | P.PN ---
Subjective Progress Note Date: 01/09/24 This is a pleasant 68-year-old patient of Dr. Mustafa. Chronic stable medical conditions include COPD, peripheral artery disease, GERD, hypertension, bipolar disorder., peripheral Neuropathy from alcoholism. heavy drinking up to 2018. Patient continues to smoke. brother Sotero - legal guardian. Patient has chronic foot wounds for which he follows at the wound care center. Patient does wear special shoes. Follows Dr. Akbar in the wound care center. Cardiac catheterization July 2023 showed nonobstructive disease Patient seen by visiting nurses was found to have hypotension. Feels tired rundown. Decreased appetite. Denies any fever and chills. January 07: Admitted with acute kidney injury/ATN. Given IV fluids. Antihypertensives were held. Feeling a bit better this morning. Denies any pain. Hypotension a bit better. Will add small dose of Lopressor starting tonight. Continue with IV fluids. 01/08. Patient seen and examined. Blood work done this morning showed sodium 136 potassium 3.9, BUN 22, creatinine 1.52. States he feels better compared to yesterday. Denies any lightheadedness or dizziness REVIEW OF SYSTEMS: CONSTITUTIONAL: No fever, no malaise,. CARDIOVASCULAR: No chest pain, no palpitations, no syncope. PULMONARY: No shortness of breath, no cough, GASTROINTESTINAL: No diarrhea, no nausea, no vomiting, no abdominal pain. NEUROLOGICAL: No headaches, no weakness, PHYSICAL EXAMINATION: GENERAL: The patient is alert and oriented x3, not in any acute distress. Well developed, well nourished. HEENT: Pupils are round and equally reacting to light. EOMI. No scleral icterus. No conjunctival pallor. Normocephalic, atraumatic. No pharyngeal erythema. No thyromegaly. CARDIOVASCULAR: S1 and S2 present. No murmurs, rubs, or gallops. PULMONARY: Chest is clear to auscultation, no wheezing or crackles. ABDOMEN: Soft, nontender, nondistended, normoactive bowel sounds. No palpable organomegaly. MUSCULOSKELETAL: No joint swelling or deformity. EXTREMITIES: Lower extremity wounds seen NEUROLOGICAL: Gross neurological examination did not reveal any focal deficits. SKIN: No rashes. Assessment and plan Acute hypotension from probably decreased fluid intake associated with acute kidney injury: Monitor vital signs IV fluids at 75 cc an hour Patient resume back on low-dose of Lopressor -Acute kidney injury, felt to be combination of ATN and prerenal.: Avoid nephrotoxic agent Continue IV fluids -Bilateral foot , pressure ulcer wounds especially in the plantar aspect deep in a patient with known peripheral artery disease and peripheral neuropathy, under lying Charcot foot: Changes felt to be chronic. Follows at the wound care center with Dr. Akbar. Vascular surgery following -COPD in a current smoker DuoNeb as needed -Chronic nicotine dependence cigarette smoker Nicotine patch 7 -Persistent atrial fibrillation, rate controlled Elevated troponin Monitor vital sign 2D echo ordered Continue anticoagulation Eliquis and Eliquis Cardiology following - chronic kidney disease stage 3 from nephrosclerosis creatinine was 1.13 in July 2023 -GERD PPI -Essential Hypertension: Currently hypotensive Hold antihypertensives -Bipolar disorder, psychosis: Risperdal 2 mg at night and 1 mg in the morning -Painful Peripheral neuropathy secondary to history of alcoholism: Controlled Neurontin cut back to 400 mg nightly because of renal function -Charcot foot Labs and medication were reviewed.. Continue same treatment. Continue with symptomatic treatment. Resume home medication. Monitor labs and vitals. DVT and GI prophylaxis. Further recommendations as per clinical course of the patient Dictation was produced using [employer] [address] dictation software. please excuse any grammatical, word or spelling errors. Objective - Vital Signs Vital signs: Vital Signs Temp 97.6 F 01/09/24 08:39 Pulse 58 L 01/09/24 08:42 Resp 16 01/09/24 08:42 BP 127/77 01/09/24 08:39 Pulse Ox 99 01/09/24 08:39 FiO2 Intake & Output 01/08/24 01/09/24 01/09/24 18:59 06:59 18:59 Intake Total 118 Output Total 400 850 500 Balance -282 850 -500 Weight 90.718 kg Intake: Oral 118 Output: Urine 400 850 500 Other: Voiding Method Urinal Urinal - Labs CBC & Chem 7: 01/08/24 08:00 01/09/24 06:59 Labs: Abnormal Lab Results - Last 24 Hours (Table) 01/09/24 Range/Units 06:59 Sodium 136 L (137-145) mmol/L Chloride 108 H (98-107) mmol/L BUN 22 H (9-20) mg/dL Creatinine 1.52 H (0.66-1.25) mg/dL Microbiology - Last 24 Hours (Table) 01/07/24 17:30 Blood Culture - Preliminary Blood 01/07/24 17:15 Blood Culture - Preliminary Blood
[2024-01-09] MEDS: GABAPENTIN 400 MG CAP PO SCH (15:13)
[2024-01-10 07:51] LABS: African American GFR (CKD) 71 (>60 ml/min/1.73 sqM); Anion Gap 7 mmol/L; Blood Urea Nitrogen 16 mg/dL (9-20); Calcium 8.8 mg/dL (8.4-10.2); Carbon Dioxide 21 mmol/L (22-30); Chloride 110 mmol/L (98-107); Glucose 100 mg/dL (74-99); Non-African American GFR(CKD) 61 (>60 ml/min/1.73 sqM); Sodium 138 mmol/L (137-145)
--- NOTE | 2024-01-10 09:01 | P.PN ---
Subjective HISTORY OF PRESENT ILLNESS: This is a 68-year-old male with a past medical history significant for atrial fibrillation, hyperlipidemia, hypertension, mild CAD, and nicotine dependence. Patient does not follow in the office with a president & founder. We have been asked to see the patient in consultation for elevated troponin and acute kidney injury. Patient examined at the bedside in the emergency room. Patient states he presented to the hospital because his blood pressure was running low. Patient states that he felt tired and had mild dizziness. He denied any chest pain or pressure. He denied any swelling to his lower extremities. He denied having any syncopal episodes. Patient states he is not very active at home. He denies any caffeine use or alcohol use. He does report having a mild cough at home but no fever. No nausea or vomiting. He is a current cigarette smoker and smokes 3/4 of a pack a day. The patient does have a history of atrial fibrillation and is anticoagulated on an outpatient basis. Patient was also found to have a acute kidney injury with a creatinine of 3.01 on admission. Repeat this morning 2.16. Patient was hypotensive upon admission which has since resolved. Most recent blood pressure 103/74. DIAGNOSTICS: - EKG reveals atrial fibrillation with controlled ventricular rate - Chest xray possible small pneumonic infiltrate in one of the lung bases posteriorly - Laboratory data: WBC 9.5. Hemoglobin 9.9. Platelet count 125. Sodium 135. Potassium 3.9. BUN 36. Creatinine 2.16. Troponin 0.157. 0.126. 0.097. Lactic acid 1.6. - Current home cardiac medications include metoprolol succinate 150 mg a day, lisinoprilhydrochlorothiazide 20-12.5 mg daily, Lipitor 80 mg at night, Eliquis 5 mg twice a day. - Most recent echocardiogram obtained in July 2023 reveals ejection fraction 55 to 60%, mild pulmonary hypertension, mild aortic regurgitation, mild aortic stenosis, trace MR, mild TR. - Cardiac catheterization history: July [address] Billy revealing mild nonobstructive disease 01/09/2024 Patient examined this morning at the bedside. Patient denies chest pain or pressure. He denies shortness of breath. Creatinine has improved today to 1.52, down from 2.1 yesterday. He remains on IV fluids at 75 cc an hour. Echocardiogram completed revealing ejection fraction 50% with moderate aortic insufficiency. Patient did have 1 isolated elevated blood pressure reading however the remainder of his blood pressures have been well-controlled. 2023 Patient examined this morning at the bedside. Patient denies chest pain or pressure. He denies shortness of breath. Creatinine has improved today at 1.2. He continues to have IV fluids running at 75 cc an hour. Patient's blood pressures have been running on the higher side with a systolic greater than 130. PHYSICAL EXAM: VITAL SIGNS: Reviewed. GENERAL: Well-developed in no acute distress. HEENT: Head is normocephalic. Pupils are equal, round. Sclerae anicteric. Mucous membranes of the mouth are moist. Neck supple. No JVD or thyromegaly LUNGS: Respirations even and unlabored. Lungs essentially clear to auscultation bilaterally. HEART: Regular rate and rhythm. S1 and S2 heard. Systolic murmur noted. ABDOMEN: Soft. Nondistended. Nontender. EXTREMITIES: Normal range of motion. No clubbing or cyanosis. Peripheral pulses intact. No lower extremity edema NEUROLOGIC: Awake and alert. Oriented x 3. ASSESSMENT: Hypotension, resolved Acute kidney injury Elevated troponins, suspect secondary to acute kidney injury, no evidence of acute coronary syndrome Paroxysmal atrial fibrillation Mild coronary artery disease, per cardiac catheterization July 2023 Moderate aortic insufficiency Hypertension Hyperlipidemia Nicotine dependence PLAN: Continue anticoagulation with Eliquis Resume lisinopril. Continue to hold hydrochlorothiazide. Increase metoprolol to 25mg BID Smoking cessation encouraged. Patient currently prescribed nicotine patch Anticipate discharge home tomorrow Further recommendations pending patient course Nurse practitioner note has been reviewed by physician. Signing provider agrees with the documented findings, assessment, and plan of care documented by [employer] as a scribe. Objective - Vital Signs Vital signs: Vital Signs Temp 96.6 F L 01/10/24 08:00 Pulse 72 01/10/24 08:00 Resp 16 01/10/24 08:00 BP 180/85 01/10/24 08:00 Pulse Ox 96 01/10/24 08:00 FiO2 Intake & Output 01/09/24 01/10/24 01/10/24 18:59 06:59 18:59 Intake Total 120 Output Total 1200 1450 400 Balance -1200 -1450 -280 Weight 90.718 kg Intake: Oral 120 Output: Urine 1200 1450 400 Other: Voiding Method Urinal Urinal Urinal # Bowel Movements 1 - Labs CBC & Chem 7: 01/08/24 08:00 01/10/24 07:17 Labs: Abnormal Lab Results - Last 24 Hours (Table) 01/10/24 Range/Units 07:17 Chloride 110 H (98-107) mmol/L Carbon Dioxide 21 L (22-30) mmol/L Glucose 100 H (74-99) mg/dL Microbiology - Last 24 Hours (Table) 01/07/24 17:30 Blood Culture - Preliminary Blood 01/07/24 17:15 Blood Culture - Preliminary Blood
[2024-01-10] MEDS: lisinopriL 20 MG TAB PO SCH (10:38)
[2024-01-10] MEDS: METOPROLOL TARTRATE 12.5 MG TAB PO STA (10:45)
--- NOTE | 2024-01-10 13:32 | P.PN ---
Subjective Progress Note Date: 01/10/24 This is a pleasant 68-year-old patient of Dr. Mustafa. Chronic stable medical conditions include COPD, peripheral artery disease, GERD, hypertension, bipolar disorder., peripheral Neuropathy from alcoholism. heavy drinking up to 2018. Patient continues to smoke. brother Sotero - legal guardian. Patient has chronic foot wounds for which he follows at the wound care center. Patient does wear special shoes. Follows Dr. Akbar in the wound care center. Cardiac catheterization July 2023 showed nonobstructive disease Patient seen by visiting nurses was found to have hypotension. Feels tired rundown. Decreased appetite. Denies any fever and chills. January 07: Admitted with acute kidney injury/ATN. Given IV fluids. Antihypertensives were held. Feeling a bit better this morning. Denies any pain. Hypotension a bit better. Will add small dose of Lopressor starting tonight. Continue with IV fluids. 01/08. Patient seen and examined. Blood work done this morning showed sodium 136 potassium 3.9, BUN 22, creatinine 1.52. States he feels better compared to yesterday. Denies any lightheadedness or dizziness 01/09. Patient seen and examined. Kidney function is improved. Lisinopril resumed by cardiology. DC fluids. Denies any chest pain or shortness of breath. REVIEW OF SYSTEMS: CONSTITUTIONAL: No fever, no malaise,. CARDIOVASCULAR: No chest pain, no palpitations, no syncope. PULMONARY: No shortness of breath, no cough, GASTROINTESTINAL: No diarrhea, no nausea, no vomiting, no abdominal pain. NEUROLOGICAL: No headaches, no weakness, PHYSICAL EXAMINATION: GENERAL: The patient is alert and oriented x3, not in any acute distress. Well developed, well nourished. HEENT: Pupils are round and equally reacting to light. EOMI. No scleral icterus. No conjunctival pallor. Normocephalic, atraumatic. No pharyngeal erythema. No thyromegaly. CARDIOVASCULAR: S1 and S2 present. No murmurs, rubs, or gallops. PULMONARY: Chest is clear to auscultation, no wheezing or crackles. ABDOMEN: Soft, nontender, nondistended, normoactive bowel sounds. No palpable organomegaly. MUSCULOSKELETAL: No joint swelling or deformity. EXTREMITIES: Lower extremity wounds seen NEUROLOGICAL: Gross neurological examination did not reveal any focal deficits. SKIN: No rashes. Assessment and plan Acute hypotension from probably decreased fluid intake associated with acute kidney injury: Monitor vital signs DC fluids Continue Lopressor -Acute kidney injury, felt to be combination of ATN and prerenal.: Avoid nephrotoxic agent DC fluids -Bilateral foot , pressure ulcer wounds especially in the plantar aspect deep in a patient with known peripheral artery disease and peripheral neuropathy, underlying Charcot foot: Changes felt to be chronic. Follows at the wound care center with Dr. Akbar. Vascular surgery following -COPD in a current smoker DuoNeb as needed -Chronic nicotine dependence cigarette smoker Nicotine patch 7 -Persistent atrial fibrillation, rate controlled Elevated troponin Monitor vital sign 2D echo ordered Continue anticoagulation Eliquis and Lopressor Lisinopril resumed by cardiology Cardiology following - chronic kidney disease stage 3 from nephrosclerosis creatinine was 1.13 in July 2023 -GERD PPI -Essential Hypertension: Resume lisinopril -Bipolar disorder, psychosis: Risperdal 2 mg at night and 1 mg in the morning -Painful Peripheral neuropathy secondary to history of alcoholism: Controlled Neurontin cut back to 400 mg nightly because of renal function -Charcot foot Labs and medication were reviewed.. Continue same treatment. Continue with symptomatic treatment. Resume home medication. Monitor labs and vitals. DVT and GI prophylaxis. Further recommendations as per clinical course of the patient Dictation was produced using [employer] dictation software. please excuse any grammatical, word or spelling errors. Objective - Vital Signs Vital signs: Vital Signs Temp 96.6 F L 01/10/24 08:00 Pulse 72 01/10/24 08:00 Resp 16 01/10/24 08:00 BP 180/85 01/10/24 08:00 Pulse Ox 96 01/10/24 08:00 FiO2 Intake & Output 01/09/24 01/10/24 01/10/24 18:59 06:59 18:59 Intake Total 120 Output Total 1200 1450 400 Balance -1200 -1450 -280 Weight 90.718 kg Intake: Oral 120 Output: Urine 1200 1450 400 Other: Voiding Method Urinal Urinal Urinal # Bowel Movements 1 - Labs CBC & Chem 7: 01/08/24 08:00 01/10/24 07:17 Labs: Abnormal Lab Results - Last 24 Hours (Table) 01/10/24 Range/Units 07:17 Chloride 110 H (98-107) mmol/L Carbon Dioxide 21 L (22-30) mmol/L Glucose 100 H (74-99) mg/dL Microbiology - Last 24 Hours (Table) 01/07/24 17:30 Blood Culture - Preliminary Blood 01/07/24 17:15 Blood Culture - Preliminary Blood
[2024-01-10] MEDS: AMIODARONE 200 MG TAB PO SCH (15:09)
[2024-01-10] MEDS: METOPROLOL TARTRATE 25 MG TAB PO SCH (19:58)
[2024-01-11 09:00] VITALS: TEMP 98.1; BMI 25.7
[2024-01-11 11:19] VITALS: RESP 17
[2024-01-11] MEDS ORDERED: Magnesium Replacement Protocol 1 EACH MISC MISCELLANE PRN (12:06)
[2024-01-11] MEDS: MAGNESIUM SULFATE-D5W PMX 1 GM in DEXTROSE/WATER 1 100ML.BAG IVPB SCH (12:52)
--- NOTE | 2024-01-11 13:22 | P.PN ---
Subjective Progress Note Date: 01/11/24 HISTORY OF PRESENT ILLNESS: This is a 68-year-old male with a past medical history significant for atrial fibrillation, hyperlipidemia, hypertension, mild CAD, and nicotine dependence. Patient does not follow in the office with a diesel lube tech. We have been asked to see the patient in consultation for elevated troponin and acute kidney injury. Patient examined at the bedside in the emergency room. Patient states he presented to the hospital because his blood pressure was running low. Patient states that he felt tired and had mild dizziness. He denied any chest pain or pressure. He denied any swelling to his lower extremities. He denied having any syncopal episodes. Patient states he is not very active at home. He denies any caffeine use or alcohol use. He does report having a mild cough at home but no fever. No nausea or vomiting. He is a current cigarette smoker and smokes 3/4 of a pack a day. The patient does have a history of atrial fibrillation and is anticoagulated on an outpatient basis. Patient was also found to have a acute kidney injury with a creatinine of 3.01 on admission. Repeat this morning 2.16. Patient was hypotensive upon admission which has since resolved. Most recent blood pressure 103/74. DIAGNOSTICS: - EKG reveals atrial fibrillation with controlled ventricular rate - Chest xray possible small pneumonic infiltrate in one of the lung bases education courses sales representative iorly - Laboratory data: WBC 9.5. Hemoglobin 9.9. Platelet count 125. Sodium 135. Potassium 3.9. BUN 36. Creatinine 2.16. Troponin 0.157. 0.126. 0.097. Lactic acid 1.6. - Current home cardiac medications include metoprolol succinate 150 mg a day, lisinoprilhydrochlorothiazide 20-12.5 mg daily, Lipitor 80 mg at night, Eliquis 5 mg twice a day. - Most recent echocardiogram obtained in July 2023 reveals ejection fraction 55 to 60%, mild pulmonary hypertension, mild aortic regurgitation, mild aortic stenosis, trace MR, mild TR. - Cardiac catheterization history: July [address] Billy revealing mild nonobstructive disease 01/09/2024 Patient examined this morning at the bedside. Patient denies chest pain or pressure. He denies shortness of breath. Creatinine has improved today to 1.52, down from 2.1 yesterday. He remains on IV fluids at 75 cc an hour. Echocardiogram completed revealing ejection fraction 50% with moderate aortic insufficiency. Patient did have 1 isolated elevated blood pressure reading however the remainder of his blood pressures have been well-controlled. 2023 Patient examined this morning at the bedside. Patient denies chest pain or pressure. He denies shortness of breath. Creatinine has improved today at 1.2. He continues to have IV fluids running at 75 cc an hour. Patient's blood pressures have been running on the higher side with a systolic greater than 130. 5/6 Patient is seen today in follow-up. Telemetry is a sinus rhythm with PACs. He states he is scheduled for discharge home today. Repeat blood work reveals potassium 4, BUN 16 creatinine 1.21 from yesterday. Heart rate is in the 50s, blood pressure running between 127/78-156/81. PHYSICAL EXAM: VITAL SIGNS: Reviewed. GENERAL: Well-developed in no acute distress. HEENT: Head is normocephalic. Pupils are equal, round. Sclerae anicteric. Mucous membranes of the mouth are moist. Neck supple. No JVD or thyromegaly LUNGS: Respirations even and unlabored. Lungs essentially clear to auscultation bilaterally. HEART: Regular rate and rhythm. S1 and S2 heard. Systolic murmur noted. ABDOMEN: Soft. Nondistended. Nontender. EXTREMITIES: Normal range of motion. No clubbing or cyanosis. Peripheral pulses intact. No lower extremity edema NEUROLOGIC: Awake and alert. Oriented x 3. ASSESSMENT: Hypotension, resolved Acute kidney injury Elevated troponins, suspect secondary to acute kidney injury, no evidence of acute coronary syndrome Paroxysmal atrial fibrillation Mild coronary artery disease, per cardiac catheterization July 2023 Moderate aortic insufficiency Hypertension Hyperlipidemia Nicotine dependence PLAN: Continue anticoagulation with Eliquis Resume lisinopril. Continue to hold hydrochlorothiazide. Increase metoprolol to 25mg BID Smoking cessation encouraged. Patient currently prescribed nicotine patch Patient is cleared from cardiology for discharge and may follow-up in the office with Dr. Arias in 1 to 2 weeks. Nurse practitioner note has been reviewed by physician. Signing provider agrees with the documented findings, assessment, and plan of care documented by FLARE [employer] as a scribe. Objective - Vital Signs Vital signs: Vital Signs Temp 98.1 F 01/11/24 09:10 Pulse 54 L 01/11/24 09:10 Resp 17 01/11/24 09:10 BP 156/81 01/11/24 09:10 Pulse Ox 98 01/11/24 09:10 FiO2 Intake & Output 01/10/24 01/11/24 01/11/24 18:59 06:59 18:59 Intake Total 474 118 Output Total 400 400 Balance 74 -400 118 Intake: Oral 474 118 Output: Urine 400 400 Other: Voiding Method Urinal Urinal Urinal - Labs CBC & Chem 7: 01/08/24 08:00 01/10/24 07:17 Labs: Microbiology - Last 24 Hours (Table) 01/07/24 17:30 Blood Culture - Preliminary Blood 01/07/24 17:15 Blood Culture - Preliminary Blood
[2024-01-11 13:37] VITALS: BP 154/78; PULSE 67
== END 2024-01-11 15:12 | disposition home health service (06) | DRG 683 ==
LOC: EC 15:13 → 3SCARD 17:58
PROVIDERS: ADMIT Hospitalist; ATTEND Hospitalist
DX: N17.0 Acute kidney failure with tubular necrosis (principal); E87.1 Hypo-osmolality and hyponatremia; I48.19 Other persistent atrial fibrillation; N18.30 Chronic kidney disease, stage 3 unspecified; I12.9 Hypertensive chronic kidney disease with stage 1 through stage 4 chronic kidney disease, or unspecified chronic kidney disease; E78.5 Hyperlipidemia, unspecified; E86.0 Dehydration; F31.9 Bipolar disorder, unspecified; I95.9 Hypotension, unspecified; E11.610 Type 2 diabetes mellitus with diabetic neuropathic arthropathy; I08.3 Combined rheumatic disorders of mitral, aortic and tricuspid valves; E11.22 Type 2 diabetes mellitus with diabetic chronic kidney disease; E11.51 Type 2 diabetes mellitus with diabetic peripheral angiopathy without gangrene; F40.240 Claustrophobia; F90.9 Attention-deficit hyperactivity disorder, unspecified type; F29 Unspecified psychosis not due to a substance or known physiological condition; L89.899 Pressure ulcer of other site, unspecified stage; L40.9 Psoriasis, unspecified; R79.89 Other specified abnormal findings of blood chemistry; I25.10 Atherosclerotic heart disease of native coronary artery without angina pectoris; K21.9 Gastro-esophageal reflux disease without esophagitis; Z79.01 Long term (current) use of anticoagulants; Z82.49 Family history of ischemic heart disease and other diseases of the circulatory system; Z87.11 Personal history of peptic ulcer disease; Z87.01 Personal history of pneumonia (recurrent); Z79.899 Other long term (current) drug therapy; Z88.0 Allergy status to penicillin; Z71.6 Tobacco abuse counseling
CPT/HCPCS: 36415; 71046; 80048; 80053; 81001; 83605; 83735; 84484; 85025; 85610; 85730; 87040; 93005; 93271; 93308; 96361; 96365; 96366; 96372; 99291

== ENCOUNTER 2024-01-23 11:05 | Observation (INO) | payer MEDICARE, OTHER ==
--- NOTE | 2024-01-23 11:14 | ED ---
General Adult HPI - General Stated complaint: Bradycardia Time Seen by Provider: 01/23/24 11:08 Source: patient, EMS, RN notes reviewed, old records reviewed Mode of arrival: EMS Limitations: no limitations - History of Present Illness Initial comments: Patient is a 68-year-old male present to the emergency department with bradycardia. Patient states he feels fine and has no complaints. Patient denies chest pain or palpitations or dyspnea. No weakness. Patient states his visiting nurse called EMS. EMS reports bradycardia. Patient did have recent hospitalization for bradycardia. - Related Data Home Medications Medication Instructions Recorded Confirmed Citalopram Hydrobromide [CeleXA] 20 mg PO DAILY 09/14/19 01/07/24 clonazePAM [KlonoPIN] 0.5 mg PO TID 01/18/22 01/07/24 HYDROcodone/APAP 10-325MG [[place] 1 tab PO QID 07/17/23 01/07/24 10-325] Nitroglycerin Sl Tabs [Nitrostat] 0.4 mg SL Q5M PRN 01/07/24 01/07/24 Pantoprazole [Protonix] 40 mg PO DAILY 01/07/24 01/07/24 Tamsulosin HCl [Flomax] 0.4 mg PO HS 01/07/24 01/07/24 risperiDONE [RisperDAL] 2 mg PO HS 01/07/24 01/07/24 Previous Rx's Medication Instructions Recorded Famotidine [Pepcid] 20 mg PO BID #1 tablet 09/20/19 Apixaban [Eliquis] 5 mg PO BID #60 tab 07/21/23 Atorvastatin [Lipitor] 80 mg PO HS #30 tab 07/21/23 Gabapentin 400 mg PO TID #0 07/21/23 risperiDONE [RisperDAL] 1 mg PO DAILY #30 tab 07/21/23 Metoprolol Tartrate [Lopressor] 25 mg PO BID #60 tab 01/11/24 Nicotine 21Mg/24Hr Patch [Habitrol] 1 patch TRANSDERM DAILY patch 01/11/24 lisinopriL [Zestril] 20 mg PO DAILY #30 tab 01/11/24 Allergies Allergy/AdvReac Type Severity Reaction Status Date / Time Penicillins Allergy Dyspnea, Verified 01/23/24 11:17 HIVES, THROAT SWELLING Review of Systems ROS Statement: Those systems with pertinent positive or pertinent negative responses have been documented in the HPI. ROS Other: All systems not noted in ROS Statement are negative. Constitutional: Denies: fever Eyes: Denies: eye pain ENT: Denies: ear pain Respiratory: Denies: dyspnea Cardiovascular: Reports: as per HPI. Denies: chest pain, palpitations Past Medical History Past Medical History: COPD, GERD/Reflux, Hyperlipidemia, Hypertension, Pneu monia, Skin Disorder, Vascular Disorder Additional Past Medical History / Comment(s): ETOH abuse, DT's, pancreatitis, chronic pain, PVD, PAD, neuropathy bilateral legs/feet and hands, past nonhealing wounds bilateral feet-past wound care center, 2006 osteomylitis L foot, chronic pain bilateral feet/legs and upper back-pt states he had thoracic vertebrae injury in past, peptic ulcer with surgery, psoriasis, sinus problems, past L clavicular fracture, acute renal failure, electrolyte disturbance. History of Any Multi-Drug Resistant Organisms: MRSA, VRE Date of last positivie culture/infection: 01/21/22 MRSA & VRE MDRO Source:: RIGHT Foot Past Surgical History: Orthopedic Surgery Additional Past Surgical History / Comment(s): Amputation of the fourth and fifth toes on the right through the metatarsal heads, multiple I&D to nonhealing wounds on the R foot, repair of perforated ucler of stomach, EGD/colonoscopy, PICC lines in and out. Past Anesthesia/Blood Transfusion Reactions: Motion Sickness Additional Past Anesthesia/Blood Transfusion Reaction / Comment(s): claustrophobia Additional Psychological History / Comment(s): Pt lives alone. He states his legal guardian is now his brother, Sotero, . He states he has not drinkl alcohol. 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 He gets to [employer] by walking or his brothers drive him. No experience. No international travel. No animal exposures. Tobacco smoker daily relates - Past Family History Mother Family Medical History: CVA/TIA, Diabetes Mellitus, Vascular Disorder Additional Family Medical History / Comment(s): emotional problems. age 64 of cva Father Family Medical History: Hypertension Additional Family Medical History / Comment(s): age 38 from mva General Exam Limitations: no limitations General appearance: alert, in no apparent distress Head exam: Present: normocephalic Eye exam: Present: normal appearance Neck exam: Present: normal inspection Respiratory exam: Present: normal lung sounds bilaterally Cardiovascular Exam: Present: bradycardia Expanded Peripheral pulses: 2+: Radial (R), Radial (L), Dorsalis Pedis (R), Dorsalis Pedis (L) GI/Abdominal exam: Present: soft. Absent: tenderness Extremities exam: Present: normal inspection. Absent: calf tenderness Neurological exam: Present: alert Psychiatric exam: Present: flat affect Skin exam: Present: normal color Course Vital Signs 01/23/24 01/23/24 01/23/24 11:08 11:35 12:07 Temperature 97.9 F Pulse Rate 41 L 43 L 34 L Respiratory 16 20 16 Rate Blood Pressure 107/52 117/69 101/58 O2 Sat by Pulse 100 Oximetry EKG Findings - EKG Results: EKG: interpreted by RAFITA (Left axis. Biphasic T wave in V6.), sinus rhythm, normal QRS EKG shows: bradycardia Medical Decision Making - Medical Decision Making Was pt. sent in by a medical professional or institution (, PA, TIME MOTION ANALYST, urgent care, hospital, or prison...) When possible be specific @ -Patient was sent in by visiting nurse Did you speak to anyone other than the patient for history (EMS, parent, family, police, friend...)? What history was obtained from this source @ -EMS helps provide history as follows medication provided Did you review nursing and triage notes (agree or disagree)? Why? @ -I reviewed and agree with nursing and triage notes Were old charts reviewed (outside hosp., previous admission, EMS record, old EKG, old radiological studies, urgent care reports/EKG's, prison records)? Report findings @ -Previous admission reviewed Differential Diagnosis (chest pain, altered mental status, abdominal pain women, abdominal pain men, vaginal bleeding, weakness, fever, dyspnea, syncope, headache, dizziness, GI bleed, back pain, seizure, CVA, palpatations, mental health, musculoskeletal)? @ -Differential Palpitations Ventricular arrhythmias, atrial arrhythmias, myocardial infarction, anemia, thyrotoxicosis, electrolyte imbalance, hypokalemia, pulmonary embolism, pulmonary disease, drugs, alcohol, anxiety, stress.... This is not meant to be an all-inclusive list. EKG interpreted by me (3pts min.). @ -As above X-rays interpreted by me (1pt min.). @ -Chest x-ray shows no acute process CT interpreted by me (1pt min.). @ -None done U/S interpreted by me (1pt. min.). @ -None done What testing was considered but not performed or refused? (CT, X-rays, U/S, labs)? Why? @ -None What meds were considered but not given or refused? Why? @ -Considered atropine however blood pressure has been steady Did you discuss the management of the patient with other professionals (professionals i.e. , PA, TIME MOTION ANALYST, lab, RT, psych nurse, licensed social worker, managed services sales consultant, teacher, president and chief executive officer, family independence case manager)? Give summary @ -Case was discussed with Dr. Dubon covering Dr. Bruce will admit covering Dr. Armenta patient Was smoking cessation discussed for >3mins.? @ -No Was critical care preformed (if so, how long)? @ -No Were there social determinants of health that impacted care today? How? (Homelessness, low income, unemployed, alcoholism, drug addiction, transportation, low edu. Level, literacy, decrease access to med. care, detention, rehab)? @ -No Was there de-escalation of care discussed even if they declined (Discuss DNR or withdrawal of care, Hospice)? DNR status @ -No What co-morbidities impacted this encounter? (DM, HTN, Smoking, COPD, CAD, Cancer, CVA, ARF, Chemo, Hep., AIDS, mental health diagnosis, sleep apnea, morbid obesity)? @ -History of bradycardia Was patient admitted / discharged? Hospital course, mention meds given and route, prescriptions, significant lab abnormalities, going to OR and other pertinent info. @ -Patient reevaluated. Blood pressure remained steady. Patient will be admitted. Beta-steven will be held. Cardiology will be placed on consult. Admission orders written. Undiagnosed new problem with uncertain prognosis? @ -No Drug Therapy requiring intensive monitoring for toxicity (Heparin, Nitro, Insulin, Cardizem)? @ -No Were any procedures done? @ -No Diagnosis/symptom? @ -Bradycardia Acute, or Chronic, or Acute on Chronic? @ -Acute Uncomplicated (without systemic symptoms) or Complicated (systemic symptoms)? @ -Default Side effects of treatment? @ -No Exacerbation, Progression, or Severe Exacerbation? @ -No Poses a threat to life or bodily function? How? (Chest pain, USA, CT, pneumonia, PE, COPD, DKA, ARF, appy, cholecystitis, CVA, Diverticulitis, Homicidal, Suicidal, threat to staff... and all critical care pts) @ -No - Lab Data Result diagrams: 01/23/24 11:30 01/23/24 11:30 Lab Results 01/23/24 01/23/24 01/23/24 Range/Units 11:30 11:30 11:30 WBC 5.3 (3.8-10.6) k/uL RBC 3.14 L (4.30-5.90) m/uL Hgb 10.0 L (13.0-17.5) gm/dL Hct 29.6 L (39.0-53.0) % MCV 94.5 (80.0-100.0) fL MCH 31.9 (25.0-35.0) pg MCHC 33.8 (31.0-37.0) g/dL RDW 13.7 (11.5-15.5) % Plt Count 121 L (150-450) k/uL MPV 8.3 Neutrophils % 73 % Lymphocytes % 16 % Monocytes % 8 % Eosinophils % 2 % Basophils % 1 % Neutrophils # 3.8 (1.3-7.7) k/uL Lymphocytes # 0.8 L (1.0-4.8) k/uL Monocytes # 0.4 (0-1.0) k/uL Eosinophils # 0.1 (0-0.7) k/uL Basophils # 0.0 (0-0.2) k/uL PT 11.5 (10.0-12.5) sec INR 1.1 (<1.2) APTT 29.1 (22.0-30.0) sec Sodium 137 (137-145) mmol/L Potassium 4.4 (3.5-5.1) mmol/L Chloride 107 (98-107) mmol/L Carbon Dioxide 26 (22-30) mmol/L Anion Gap 4 mmol/L BUN 17 (9-20) mg/dL Creatinine 1.13 (0.66-1.25) mg/dL Est GFR (CKD-EPI)AfAm 77 (>60 ml/min/1.73 sqM) Est GFR (CKD-EPI)NonAf 67 (>60 ml/min/1.73 sqM) Glucose 93 (74-99) mg/dL Calcium 8.6 (8.4-10.2) mg/dL Magnesium 1.9 (1.6-2.3) mg/dL Total Bilirubin 0.7 (0.2-1.3) mg/dL AST 20 (17-59) U/L ALT 8 (4-49) U/L Alkaline Phosphatase 66 (38-126) U/L Troponin I (0.000-0.034) ng/mL Total Protein 6.2 L (6.3-8.2) g/dL Albumin 3.3 L (3.5-5.0) g/dL TSH 0.258 L (0.465-4.680) mIU/L Free T4 1.14 (0.78-2.19) ng/dL Serum Alcohol <10 mg/dL 01/23/24 Range/Units 11:30 WBC (3.8-10.6) k/uL RBC (4.30-5.90) m/uL Hgb (13.0-17.5) gm/dL Hct (39.0-53.0) % MCV (80.0-100.0) fL MCH (25.0-35.0) pg MCHC (31.0-37.0) g/dL RDW (11.5-15.5) % Plt Count (150-450) k/uL MPV Neutrophils % % Lymphocytes % % Monocytes % % Eosinophils % % Basophils % % Neutrophils # (1.3-7.7) k/uL Lymphocytes # (1.0-4.8) k/uL Monocytes # (0-1.0) k/uL Eosinophils # (0-0.7) k/uL Basophils # (0-0.2) k/uL PT (10.0-12.5) sec INR (<1.2) APTT (22.0-30.0) sec Sodium (137-145) mmol/L Potassium (3.5-5.1) mmol/L Chloride (98-107) mmol/L Carbon Dioxide (22-30) mmol/L Anion Gap mmol/L BUN (9-20) mg/dL Creatinine (0.66-1.25) mg/dL Est GFR (CKD-EPI)AfAm (>60 ml/min/1.73 sqM) Est GFR (CKD-EPI)NonAf (>60 ml/min/1.73 sqM) Glucose (74-99) mg/dL Calcium (8.4-10.2) mg/dL Magnesium (1.6-2.3) mg/dL Total Bilirubin (0.2-1.3) mg/dL AST (17-59) U/L ALT (4-49) U/L Alkaline Phosphatase (38-126) U/L Troponin I <0.012 (0.000-0.034) ng/mL Total Protein (6.3-8.2) g/dL Albumin (3.5-5.0) g/dL TSH (0.465-4.680) mIU/L Free T4 (0.78-2.19) ng/dL Serum Alcohol mg/dL Disposition Clinical Impression: Bradycardia Disposition: ADMITTED IP TO THIS HOSP Is patient prescribed a controlled substance at d/c from ED?: No Referrals: Remington Mustafa MD [Primary Care Provider] - 1-2 days Time of Disposition: 12:54
[2024-01-23 11:49] LABS: Basophils % (A) 1 %; Eosinophils # (A) 0.1 k/uL (0-0.7); Eosinophils % (A) 2 %; HCT 29.6 % (39.0-53.0); Lymphocytes # (A) 0.8 k/uL (1.0-4.8); Lymphocytes % (A) 16 %; MCH 31.9 pg (25.0-35.0); MCHC 33.8 g/dL (31.0-37.0); MCV 94.5 fL (80.0-100.0); Mean Platelet Volume 8.3; Monocytes # (A) 0.4 k/uL (0-1.0); Monocytes % (A) 8 %; Neutrophils # (A) 3.8 k/uL (1.3-7.7); Neutrophils % (A) 73 %; Platelet Count 121 k/uL (150-450); RBC 3.14 m/uL (4.30-5.90); RDW 13.7 % (11.5-15.5); WBC 5.3 k/uL (3.8-10.6)
[2024-01-23 11:58] LABS: ALT 8 U/L (4-49); AST 20 U/L (17-59); African American GFR (CKD) 77 (>60 ml/min/1.73 sqM); Albumin 3.3 g/dL (3.5-5.0); Alcohol <10 mg/dL; Alkaline Phosphatase 66 U/L (38-126); Anion Gap 4 mmol/L; Blood Urea Nitrogen 17 mg/dL (9-20); Calcium 8.6 mg/dL (8.4-10.2); Carbon Dioxide 26 mmol/L (22-30); Chloride 107 mmol/L (98-107); Glucose 93 mg/dL (74-99); Magnesium 1.9 mg/dL (1.6-2.3); Non-African American GFR(CKD) 67 (>60 ml/min/1.73 sqM); Potassium 4.4 mmol/L (3.5-5.1); Sodium 137 mmol/L (137-145); Total Bilirubin 0.7 mg/dL (0.2-1.3); Total Protein 6.2 g/dL (6.3-8.2)
[2024-01-23 12:02] LABS: INR 1.1 (<1.2); Partial Thromboplastin Time 29.1 sec (22.0-30.0); Prothrombin Time 11.5 sec (10.0-12.5)
--- NOTE | 2024-01-23 12:03 | XR ---
EXAMINATION TYPE: XR chest 1V portable DATE OF EXAM: 01/23/2024 11:43 AM CLINICAL INDICATION:Male, 68 years old with history of dysrhythmia; [facility] COMPARISON: Chest radiographs from 01/07/2024. TECHNIQUE: XR chest 1V portable Frontal view of the chest. FINDINGS: Lungs/Pleura: There is no evidence of pleural effusion, focal consolidation, or pneumothorax. Pulmonary vascularity: Unremarkable. Heart/mediastinum: Cardiomediastinal silhouette is unremarkable. Musculoskeletal: No acute osseous pathology. Left clavicle fixation hardware. IMPRESSION: No acute cardiopulmonary disease/process.
[2024-01-23 12:14] LABS: T4, Free (Free Thyroxine) 1.14 ng/dL (0.78-2.19)
[2024-01-23] MEDS ORDERED: NALOXONE 0.4 MG/ML 1 ML VIAL IV PRN (12:54)
[2024-01-23] MEDS ORDERED: LORazepam 0.5 MG TAB PO PRN (12:54)
[2024-01-23] MEDS: clonazePAM 0.5 MG TAB PO SCH (15:48)
[2024-01-23] MEDS: GABAPENTIN 400 MG CAP PO SCH (15:48)
[2024-01-23] MEDS: HYDROcodone/APAP 10-325MG 1 EACH TAB PO SCH (19:26)
[2024-01-23] MEDS: APIXABAN 5 MG TAB PO SCH (20:23)
[2024-01-23] MEDS: ATORVASTATIN 80 MG TAB PO SCH (20:24)
[2024-01-23] MEDS: FAMOTIDINE 20 MG TAB PO SCH (20:24)
[2024-01-23] MEDS: risperiDONE 1 MG TAB PO SCH (20:24)
[2024-01-23] MEDS: TAMSULOSIN 0.4 MG CAP.ER.24H PO SCH (20:24)
--- NOTE | 2024-01-23 23:39 | P.HPIM ---
History of Present Illness H&P Date: 01/23/24 Chief Complaint: Bradycardia Patient is a 68-year-old male with a past medical history of hypertension, hyperlipidemia, atrial fibrillation on anticoagulation, COPD, peripheral vascular disease, bilateral peripheral neuropathy and chronic bilateral feet pain, amputation of the fourth and fifth toes on the right, repair of perforated gastric ulcer and other multiple medical problems was sent to ER due to bradycardia. Patient was noted to be bradycardic with heart rate in 30s by home visiting nurse and was recommended to go to ER. Otherwise patient denies any dizziness or lightheadedness. No palpitations. No chest pain or shortness of breath. No cough or sputum production. Denies any worsening leg swelling. On admission heart rate 41 respiratory rate 16 and pulse ox 100% on 2 L via nasal cannula. EKG showed sinus bradycardia with heart rate 47 Chest x-ray showed no acute cardiopulmonary process. Laboratory data showed WBC 5.3 hemoglobin 10.0 and platelets 121 Sodium 137 potassium 4.4 chloride 107 bicarb is 26 BUN 17 and creatinine 1.13 and blood sugar 93 troponin x 3 negative TSH 0.258 and free T4 level is 1.14 and free T32.4 Within normal limits. Serum alcohol level less than 10 Review of Systems Constitutional: Patient denies any fever or chills . No generalized weakness or weight loss. Abdomen: Patient denied nausea vomiting and diarrhea and abdominal pain. Cardiovascular: Patient denies any chest pain or short of breath no palpitations. Respiratory: patient denied any cough is from production. No shortness of breath Neurologic: Patient denied any numbness or tingling headache. Musculoskeletal: Patient denies any complaints of joint swelling or deformity. Skin: Negative Psychiatric: Negative Endocrine: No heat or cold intolerance. No recent weight gain. Genitourinary: No dysuria or hematuria. All other 14 point ROS negative except the above Past Medical History Past Medical History: COPD, GERD/Reflux, Hyperlipidemia, Hypertension, Pneumonia, Skin Disorder, Vascular Disorder Additional Past Medical History / Comment(s): ETOH abuse, DT's, pancreatitis, chronic pain, PVD, PAD, neuropathy bilateral legs/feet and hands, past nonhealin g wounds bilateral feet-past wound care center, 2006 osteomylitis L foot, chronic pain bilateral feet/legs and upper back-pt states he had thoracic vertebrae injury in past, peptic ulcer with surgery, psoriasis, sinus problems, past L clavicular fracture, acute renal failure, electrolyte disturbance. History of Any Multi-Drug Resistant Organisms: MRSA, VRE Date of last positivie culture/infection: 01/21/22 MRSA & VRE MDRO Source:: RIGHT Foot Past Surgical History: Orthopedic Surgery Additional Past Surgical History / Comment(s): Amputation of the fourth and fifth toes on the right through the metatarsal heads, multiple I&D to nonhealing wounds on the R foot, repair of perforated ucler of stomach, EGD/colonoscopy, PICC lines in and out. Past Anesthesia/Blood Transfusion Reactions: Motion Sickness Additional Past Anesthesia/Blood Transfusion Reaction / Comment(s): claustrophobia Additional Psychological History / Comment(s): Pt lives alone. He states his legal guardian is now his brother, Sotero, . He states he has not drinkl alcohol. 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 No experience. No international travel. No animal exposures. Tobacco smoker daily relates - Past Family History Mother Family Medical History: CVA/TIA, Diabetes Mellitus, Vascular Disorder Additional Family Medical History / Comment(s): emotional problems. age 64 of cva Father Family Medical History: Hypertension Additional Family Medical History / Comment(s): age 38 from mva Medications and Allergies Home Medications Medication Instructions Recorded Confirmed Type Citalopram Hydrobromide [CeleXA] 20 mg PO DAILY 09/14/19 01/23/24 History Famotidine [Pepcid] 20 mg PO BID #1 tablet 09/20/19 01/23/24 Rx clonazePAM [KlonoPIN] 0.5 mg PO TID 01/18/22 01/23/24 History HYDROcodone/APAP 10-325MG [[place] 1 tab PO QID 07/17/23 01/23/24 History 10-325] Apixaban [Eliquis] 5 mg PO BID #60 tab 07/21/23 01/23/24 Rx Atorvastatin [Lipitor] 80 mg PO HS #30 tab 07/21/23 01/23/24 Rx Gabapentin 400 mg PO TID #0 07/21/23 01/23/24 Rx risperiDONE [RisperDAL] 1 mg PO DAILY #30 tab 07/21/23 01/23/24 Rx Nitroglycerin Sl Tabs [Nitrostat] 0.4 mg SL Q5M PRN 01/07/24 01/23/24 History Pantoprazole [Protonix] 40 mg PO DAILY 01/07/24 01/23/24 History Tamsulosin HCl [Flomax] 0.4 mg PO HS 01/07/24 01/23/24 History risperiDONE [RisperDAL] 2 mg PO HS 01/07/24 01/23/24 History Metoprolol Tartrate [Lopressor] 25 mg PO BID #60 tab 01/11/24 01/23/24 Rx lisinopriL [Zestril] 20 mg PO DAILY #30 tab 01/11/24 01/23/24 Rx Allergies Allergy/AdvReac Type Severity Reaction Status Date / Time Penicillins Allergy Dyspnea, Verified 01/23/24 13:58 HIVES, THROAT SWELLING Physical Exam Vitals: Vital Signs Temp Pulse Resp BP Pulse Ox 01/23/24 13:43 35 L 20 107/67 100 01/23/24 12:07 34 L 16 101/58 01/23/24 11:35 43 L 20 117/69 01/23/24 11:08 97.9 F 41 L 16 107/52 100 Intake and Output 01/22/24 01/23/24 01/23/24 22:59 06:59 14:59 Other: Weight 90.718 kg PHYSICAL EXAMINATION: Patient is lying in the bed comfortably, no acute distress, awake alert and oriented.. HEENT: Normocephalic. Neck is supple. Pupils reactive. Nostrils clear. Oral cavity is moist. Neck reveals no JVD, carotid bruits, or thyromegaly. CHEST EXAMINATION: Trachea is central. Symmetrical expansion. Lung romano clear to auscultation and percussion. CARDIAC: Normal S1, S2 with no gallops. No murmurs ABDOMEN: Soft. Bowel sounds normal. No organomegaly. No abdominal bruits. Extremities: reveal no edema. No clubbing or cyanosis Neurologically awake, alert, oriented x3 with well-coordinated movements. No focal deficits noted Skin: No rash or skin lesions. Psychiatric: Coperative. Nonsuicidal Musculoskeletal: No joint swelling or deformity. Normal range of motion. Results CBC & Chem 7: 01/24/24 03:10 01/24/24 03:10 Labs: Abnormal Lab Results - Last 24 Hours (Table) 01/23/24 01/23/24 Range/Units 11:30 11:30 RBC 3.14 L (4.30-5.90) m/uL Hgb 10.0 L (13.0-17.5) gm/dL Hct 29.6 L (39.0-53.0) % Plt Count 121 L (150-450) k/uL Lymphocytes # 0.8 L (1.0-4.8) k/uL Total Protein 6.2 L (6.3-8.2) g/dL Albumin 3.3 L (3.5-5.0) g/dL TSH 0.258 L (0.465-4.680) mIU/L Thrombosis Risk Factor Assmnt - DVT/VTE Prophylaxis DVT/VTE Prophylaxis: Pharmacologic Prophylaxis ordered Assessment and Plan Assessment: Sinus bradycardia. Patient is on metoprolol 25 mg twice daily at home. Paroxysmal atrial fibrillation on anticoagulation with Eliquis rate controlled. Hypertension Hyperlipidemia Peripheral vascular disease History of alcohol abuse and DTs Bilateral peripheral neuropathy nondiabetic Chronic pain bilateral feet and legs and upper back. History of peptic ulcer with surgery Claustrophobia GERD COPD not in exacerbation Plan: Patient will be continued on telemetry. Continue with Eliquis and metoprolol is on hold. Continue other home medications and follow-up closely. Cardiology was consulted due to bradycardia. TSH is low. Free T4 level and free T3 levels within normal limits. Continue to monitor overnight. Time with Patient: Greater than 30
[2024-01-24 03:35] LABS: Basophils % (A) 0 %; Eosinophils # (A) 0.1 k/uL (0-0.7); Eosinophils % (A) 2 %; HCT 30.6 % (39.0-53.0); Lymphocytes # (A) 1.2 k/uL (1.0-4.8); Lymphocytes % (A) 30 %; MCH 31.4 pg (25.0-35.0); MCHC 32.7 g/dL (31.0-37.0); MCV 95.8 fL (80.0-100.0); Mean Platelet Volume 8.5; Monocytes # (A) 0.3 k/uL (0-1.0); Monocytes % (A) 8 %; Neutrophils # (A) 2.3 k/uL (1.3-7.7); Neutrophils % (A) 57 %; Platelet Count 117 k/uL (150-450); RBC 3.19 m/uL (4.30-5.90); RDW 13.6 % (11.5-15.5); WBC 3.9 k/uL (3.8-10.6)
[2024-01-24 03:52] LABS: African American GFR (CKD) 81 (>60 ml/min/1.73 sqM); Anion Gap 2 mmol/L; Blood Urea Nitrogen 18 mg/dL (9-20); Calcium 8.5 mg/dL (8.4-10.2); Carbon Dioxide 29 mmol/L (22-30); Chloride 106 mmol/L (98-107); Glucose 82 mg/dL (74-99); Non-African American GFR(CKD) 70 (>60 ml/min/1.73 sqM); Potassium 4.4 mmol/L (3.5-5.1); Sodium 137 mmol/L (137-145)
[2024-01-24] MEDS: PANTOPRAZOLE 40 MG TABLET PO SCH (08:27)
[2024-01-24] MEDS: NICOTINE 14MG/24HR PATCH TRANSDERM SCH (08:27)
[2024-01-24] MEDS: CITALOPRAM HYDROBROMIDE 20 MG TAB PO SCH (08:27)
[2024-01-24] MEDS: risperiDONE 1 MG TAB PO SCH (08:27)
--- NOTE | 2024-01-24 08:55 | P.CRDCN ---
History of Present Illness Consult date: 01/24/24 History of present illness: HISTORY OF PRESENTING ILLNESS 68-year-old with PMH of atrial fibrillation, paroxysmal, lipidemia hypertension mild CAD, tobacco smoker. Got recently admitted to the hospital because of bradycardia. Last admission his beta-steven was stopped and was discharged home on as needed use of Intropin for low heart rate. Patient denies any syncopal episodes or presyncope. He does report feeling generalized fatigue. He denies any chest pain chest pressure palpitations. This time again patient presented to the hospital because of bradycardia with resting heart rate around 50 bpm. On review of telemetry and ECG it appears that patient is in sinus bradycardia with intermittent PACs. There is no evidence of high-grade AV block or any significant pauses. Troponin x 3 are negative, BUN 17, creatinine 1.13, TSH 0.2, T41.14, hemoglobin 10 No signs of congestive heart failure. REVIEW OF SYSTEMS 14 point review of system is negative except what is mentioned above in HPI. PHYSICAL EXAMINATION Vital signs reviewed. Head: Normocephalic. Eyes: Sclerae nonicteric. Neck: Brisk carotid upstroke, no jugular venous distention. Lungs: Clear to auscultation. Heart: Regular rate and rhythm, S1-S2, no S3, mild diastolic murmur Abdomen: Soft nontender, positive bowel sounds. Extremities: No edema, intact distal pulses. Neuro: Alert, oritented, no focal deficits. Detailed neuro exam was not performed. ASSESSMENT Sinus bradycardia History of paroxysmal atrial fibrillation, currently sinus Hypertension Mild CAD Tobacco smoker Mild Mod Aortic regurg from last echo PLAN Do not resume any AV jeannine blocking agents Patient appears euvolemic. There is no reported symptoms of lightheadedness or dizziness. Would recommend 6-minute walk test and PT OT evaluation. If patient is stable and is not at high risk of fall, patient can be discharged from cardiovascular standpoint. Recommend outpatient follow-up with cardiology clinic Paco Alfaro MD, FACC, RPVI Thank you for allowing [facility] to participate in this patient's care. Feel free to reach out in case of any followup questions. 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 History of Any Multi-Drug Resistant Organisms: MRSA, VRE Date of last positivie culture/infection: 01/21/22 MRSA & VRE MDRO Source:: RIGHT Foot Past Surgical History: Orthopedic Surgery Additional Past Surgical History / Comment(s): Amputation of the fourth and fifth toes on the right through the metatarsal heads, multiple I&D to nonhealing wounds on the R foot, repair of perforated ucler of stomach, EGD/colonoscopy, PICC lines in and out. Past Anesthesia/Blood Transfusion Reactions: Motion Sickness Additional Past Anesthesia/Blood Transfusion Reaction / Comment(s): claustroph obia Additional Psychological History / Comment(s): Pt lives alone. He states his legal guardian is now his brother, Sotero, . He states he has not drinkl alcohol. 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 He gets to [facility] by walking or his brothers drive him. No experience. No international travel. No animal exposures. Tobacco smoker daily relates - Past Family History Mother Family Medical History: CVA/TIA, Diabetes Mellitus, Vascular Disorder Additional Family Medical History / Comment(s): emotional problems. age 64 of cva Father Family Medical History: Hypertension Additional Family Medical History / Comment(s): age 38 from mva Medications and Allergies Home Medications Medication Instructions Recorded Confirmed Type Citalopram Hydrobromide [CeleXA] 20 mg PO DAILY 09/14/19 01/23/24 History Famotidine [Pepcid] 20 mg PO BID #1 tablet 09/20/19 01/23/24 Rx clonazePAM [KlonoPIN] 0.5 mg PO TID 01/18/22 01/23/24 History HYDROcodone/APAP 10-325MG [[place] 1 tab PO QID 07/17/23 01/23/24 History 10-325] Apixaban [Eliquis] 5 mg PO BID #60 tab 07/21/23 01/23/24 Rx Atorvastatin [Lipitor] 80 mg PO HS #30 tab 07/21/23 01/23/24 Rx Gabapentin 400 mg PO TID #0 07/21/23 01/23/24 Rx risperiDONE [RisperDAL] 1 mg PO DAILY #30 tab 07/21/23 01/23/24 Rx Nitroglycerin Sl Tabs [Nitrostat] 0.4 mg SL Q5M PRN 01/07/24 01/23/24 History Pantoprazole [Protonix] 40 mg PO DAILY 01/07/24 01/23/24 History Tamsulosin HCl [Flomax] 0.4 mg PO HS 01/07/24 01/23/24 History risperiDONE [RisperDAL] 2 mg PO HS 01/07/24 01/23/24 History Metoprolol Tartrate [Lopressor] 25 mg PO BID #60 tab 01/11/24 01/23/24 Rx lisinopriL [Zestril] 20 mg PO DAILY #30 tab 01/11/24 01/23/24 Rx Allergies Allergy/AdvReac Type Severity Reaction Status Date / Time Penicillins Allergy Dyspnea, Verified 01/23/24 13:58 HIVES, THROAT SWELLING Physical Exam Vitals: Vital Signs Temp Pulse Resp BP Pulse Ox 01/24/24 08:00 98.3 F 57 L 17 129/77 97 01/24/24 06:00 45 L 18 133/66 96 01/24/24 02:00 43 L 18 89/64 96 01/23/24 22:00 57 L 18 109/68 96 01/23/24 21:11 50 L 20 105/63 97 01/23/24 19:27 54 L 20 114/76 99 01/23/24 15:49 47 L 20 130/63 98 01/23/24 13:43 35 L 20 107/67 100 01/23/24 12:07 34 L 16 101/58 01/23/24 11:35 43 L 20 117/69 01/23/24 11:08 97.9 F 41 L 16 107/52 100 Intake and Output 01/23/24 01/24/24 01/24/24 22:59 06:59 14:59 Output Total 650 Balance -650 Output: Urine 650 Results 01/24/24 03:10 01/24/24 03:10 Cardiac Enzymes 01/23/24 01/23/24 01/23/24 Range/Units 11:30 11:30 14:38 AST 20 (17-59) U/L Troponin I <0.012 <0.012 (0.000-0.034) ng/mL 01/23/24 Range/Units 18:50 AST (17-59) U/L Troponin I <0.012 (0.000-0.034) ng/mL Coagulation 01/23/24 Range/Units 11:30 PT 11.5 (10.0-12.5) sec APTT 29.1 (22.0-30.0) sec CBC 01/23/24 01/24/24 Range/Units 11:30 03:10 WBC 5.3 3.9 (3.8-10.6) k/uL RBC 3.14 L 3.19 L (4.30-5.90) m/uL Hgb 10.0 L 10.0 L (13.0-17.5) gm/dL Hct 29.6 L 30.6 L (39.0-53.0) % Plt Count 121 L 117 L (150-450) k/uL Comprehensive Metabolic Panel 01/23/24 01/24/24 Range/Units 11:30 03:10 Sodium 137 137 (137-145) mmol/L Potassium 4.4 4.4 (3.5-5.1) mmol/L Chloride 107 106 (98-107) mmol/L Carbon Dioxide 26 29 (22-30) mmol/L BUN 17 18 (9-20) mg/dL Creatinine 1.13 1.08 (0.66-1.25) mg/dL Glucose 93 82 (74-99) mg/dL Calcium 8.6 8.5 (8.4-10.2) mg/dL AST 20 (17-59) U/L ALT 8 (4-49) U/L Alkaline Phosphatase 66 (38-126) U/L Total Protein 6.2 L (6.3-8.2) g/dL Albumin 3.3 L (3.5-5.0) g/dL Current Medications Generic Name Dose Route Start Last Admin Trade Name Freq PRN Reason Stop Dose Admin Hydrocodone Bitart/Acetaminophen 1 each 01/23/24 18:00 01/24/24 08:28 Hydrocodone/Apap 10-325mg 1 Each Tab PO 1 each QID INGA Administration Apixaban 5 mg 01/23/24 21:00 01/24/24 08:27 Apixaban 5 Mg Tab PO 5 mg BID INGA Administration Protocol Atorvastatin Calcium 80 mg 01/23/24 21:00 01/23/24 20:24 Atorvastatin 80 Mg Tab PO 80 mg HS INGA Administration Citalopram Hydrobromide 20 mg 01/24/24 09:00 01/24/24 08:27 Citalopram Hydrobromide 20 Mg Tab PO 20 mg DAILY INGA Administration Clonazepam 0.5 mg 01/23/24 16:00 01/24/24 08:27 Clonazepam 0.5 Mg Tab PO 0.5 mg TID INGA Administration Famotidine 20 mg 01/23/24 21:00 01/24/24 08:27 Famotidine 20 Mg Tab PO 20 mg BID INGA Administration Gabapentin 400 mg 01/23/24 16:00 01/24/24 08:27 Gabapentin 400 Mg Cap PO 400 mg TID INGA Administration Lorazepam 0.5 mg 01/23/24 12:54 Lorazepam 0.5 Mg Tab PO Q6HR PRN Anxiety Naloxone HCl 0.2 mg 01/23/24 12:54 Naloxone 0.4 Mg/Ml 1 Ml Vial IV Q2M PRN Opioid Reversal Nicotine 1 patch 01/24/24 09:00 01/24/24 08:27 Nicotine 14mg/24hr Patch TRANSDERM 1 patch DAILY INGA Administration Pantoprazole Sodium 40 mg 01/24/24 09:00 01/24/24 08:27 Pantoprazole 40 Mg Tablet PO 40 mg DAILY INGA Administration Risperidone 1 mg 01/24/24 09:00 01/24/24 08:27 Risperidone 1 Mg Tab PO 1 mg DAILY INGA Administration Risperidone 2 mg 01/23/24 21:00 01/23/24 20:24 Risperidone 1 Mg Tab PO 2 mg HS INGA Administration Tamsulosin HCl 0.4 mg 01/23/24 21:00 01/23/24 20:24 Tamsulosin 0.4 Mg Cap.Er.24h PO 0.4 mg HS INGA Administration Intake and Output 01/23/24 01/24/24 01/24/24 22:59 06:59 14:59 Output Total 650 Balance -650 Output: Urine 650 01/24/24 03:10 01/24/24 03:10
[2024-01-24 13:11] VITALS: RESP 17
[2024-01-24 14:51] VITALS: BP 116/74; PULSE 60; TEMP 98.6
== END 2024-01-24 16:34 | disposition home health service (06) ==
LOC: EC 11:05 → 3SCARD 12:54
PROVIDERS: ADMIT Internal Medicine; ATTEND Internal Medicine
DX: R00.1 Bradycardia, unspecified (principal); I48.0 Paroxysmal atrial fibrillation; I10 Essential (primary) hypertension; E78.5 Hyperlipidemia, unspecified; J44.9 Chronic obstructive pulmonary disease, unspecified; I49.1 Atrial premature depolarization; I25.10 Atherosclerotic heart disease of native coronary artery without angina pectoris; G62.9 Polyneuropathy, unspecified; I73.9 Peripheral vascular disease, unspecified; F40.240 Claustrophobia; K21.9 Gastro-esophageal reflux disease without esophagitis; G89.29 Other chronic pain; M79.672 Pain in left foot; M79.671 Pain in right foot; M79.605 Pain in left leg; M79.604 Pain in right leg; M54.6 Pain in thoracic spine; F17.200 Nicotine dependence, unspecified, uncomplicated; Z79.01 Long term (current) use of anticoagulants; Z79.899 Other long term (current) drug therapy; Z88.0 Allergy status to penicillin; Z89.421 Acquired absence of other right toe(s); Z87.19 Personal history of other diseases of the digestive system
CPT/HCPCS: 99285; 36415; 93005; 84439; 84481; 80053; 80048; 83735; 84443; 84484; 85025 ×2; 85610; 85730; 71045; G0378 ×2; G0480; S4990; 80320

== ENCOUNTER 2024-03-07 11:20 | Observation (INO) | payer MEDICARE ==
[2024-03-07 12:17] LABS: Basophils % (A) 0 %; Eosinophils % (A) 1 %; HCT 27.7 % (39.0-53.0); HGB 9.7 gm/dL (13.0-17.5); Lymphocytes # (A) 0.3 k/uL (1.0-4.8); Lymphocytes % (A) 4 %; MCH 33.1 pg (25.0-35.0); MCHC 35.1 g/dL (31.0-37.0); MCV 94.3 fL (80.0-100.0); Mean Platelet Volume 8.5; Monocytes # (A) 0.5 k/uL (0-1.0); Monocytes % (A) 6 %; Neutrophils # (A) 7.6 k/uL (1.3-7.7); Neutrophils % (A) 89 %; Platelet Count 145 k/uL (150-450); RBC 2.94 m/uL (4.30-5.90); RDW 12.1 % (11.5-15.5); WBC 8.6 k/uL (3.8-10.6)
[2024-03-07 12:21] LABS: INR 1.1 (<1.2); Partial Thromboplastin Time 31.7 sec (22.0-30.0); Prothrombin Time 11.6 sec (10.0-12.5)
[2024-03-07 12:27] LABS: ALT 10 U/L (4-49); AST 23 U/L (17-59); African American GFR (CKD) 67 (>60 ml/min/1.73 sqM); Albumin 3.4 g/dL (3.5-5.0); Alcohol <10 mg/dL; Alkaline Phosphatase 70 U/L (38-126); Anion Gap 9 mmol/L; Blood Urea Nitrogen 18 mg/dL (9-20); Calcium 9.1 mg/dL (8.4-10.2); Carbon Dioxide 22 mmol/L (22-30); Chloride 104 mmol/L (98-107); Glucose 104 mg/dL (74-99); Magnesium 1.7 mg/dL (1.6-2.3); Non-African American GFR(CKD) 58 (>60 ml/min/1.73 sqM); Potassium 3.7 mmol/L (3.5-5.1); Sodium 135 mmol/L (137-145); Total Bilirubin 0.8 mg/dL (0.2-1.3); Total Protein 6.4 g/dL (6.3-8.2)
--- NOTE | 2024-03-07 12:40 | XR ---
EXAMINATION TYPE: XR chest 2V DATE OF EXAM: 03/07/2024 COMPARISON: 01/23/2024, 01/07/2024 HISTORY: 68-year-old male dysrhythmia TECHNIQUE: AP and lateral views FINDINGS: Plate and screw fixation left clavicular shaft. Similar multiple superior endplate deformities throug hout the thoracic spine. Patient is rotated toward the right altering the normal cardiomediastinal c ontours. Heart appears mildly enlarged. Mild hyperinflation. No consolidation or pleural effusion see n. IMPRESSION: 1. Limited, rotated exam. 2. There appears to be mild cardiomegaly and suspected underlying COPD. No definite acute process. 3. Previous plate and screw fixation left clavicular shaft. Mild superior endplate deformities throug hout the thoracic spine were present on 01/07/2024 as well.
--- NOTE | 2024-03-07 12:52 | ED ---
Arrhythmia/Palpitations HPI - General Chief Complaint: Arrhythmia/Palpitations Stated Complaint: Tachycardia Time Seen by Provider: 03/07/24 11:29 Source: EMS Mode of arrival: EMS - History of Present Illness Initial Comments: 68-year-old male who presents emergency department from home. Awoke this morning and did not feel right. States that he had a racing heart, nausea and diaphoresis. EMS found the patient at home to have a very rapid heart rate close to 200. They started an IV on the patient and he bradycardia down visible to see that the patient was in A-fib with RVR and then converted over to normal sinus rhythm. Patient does have history of A-fib. He is anticoagulated on Eliquis. Now the patient is converted he still reports to nausea and generally not feeling well. He denies chest pain. No shortness of breath. No sick contacts. No recent medication changes. Admits abdominal bloating. States it has been several days since he had a bowel movement. No other alleviating, precipitating modifying factors - Related Data Home Medications Medication Instructions Recorded Confirmed Citalopram Hydrobromide [CeleXA] 20 mg PO DAILY 09/14/19 03/07/24 clonazePAM [KlonoPIN] 0.5 mg PO TID 01/18/22 03/07/24 HYDROcodone/APAP 10-325MG [[place] 1 tab PO QID 07/17/23 03/07/24 10-325] Nitroglycerin Sl Tabs [Nitrostat] 0.4 mg SL Q5M PRN 01/07/24 03/07/24 Pantoprazole [Protonix] 40 mg PO DAILY 01/07/24 03/07/24 Tamsulosin HCl [Flomax] 0.4 mg PO HS 01/07/24 03/07/24 risperiDONE [RisperDAL] 2 mg PO HS 01/07/24 03/07/24 Previous Rx's Medication Instructions Recorded Apixaban [Eliquis] 5 mg PO BID #60 tab 07/21/23 Atorvastatin [Lipitor] 80 mg PO HS #30 tab 07/21/23 Gabapentin 400 mg PO TID #0 07/21/23 risperiDONE [RisperDAL] 1 mg PO DAILY #30 tab 07/21/23 lisinopriL [Zestril] 20 mg PO DAILY #30 tab 01/11/24 Nicotine 21Mg/24Hr Patch [Habitrol] 1 patch TRANSDERM DAILY #30 patch 03/09/24 Psyllium Husk 100% [Metamucil 6 gm PO BID #60 packet 03/09/24 Packet] Allergies Allergy/AdvReac Type Severity Reaction Status Date / Time Penicillins Allergy Dyspnea, Verified 03/07/24 13:27 HIVES, THROAT SWELLING Review of Systems ROS Statement: Those systems with pertinent positive or pertinent negative responses have been documented in the HPI. ROS Other: All systems not noted in ROS Statement are negative. 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 History of Any Multi-Drug Resistant Organisms: MRSA, VRE Date of last positivie culture/infection: 01/21/22 MRSA & VRE MDRO Source:: RIGHT Foot Past Surgical History: Orthopedic Surgery Additional Past Surgical History / Comment(s): Amputation of the fourth and fifth toes on the right through the metatarsal heads, multiple I&D to nonhealing wounds on the R foot, repair of perforated ucler of stomach, EGD/colonoscopy, PICC lines in and out. Past Anesthesia/Blood Transfusion Reactions: Motion Sickness Additional Past Anesthesia/Blood Transfusion Reaction / Comment(s): c laustrophobia Past Psychological History: ADD/ADHD, Anxiety, Depression Smoking Status: Current every day smoker Past Alcohol Use History: None Reported Past Drug Use History: Marijuana - Past Family History Mother Family Medical History: CVA/TIA, Diabetes Mellitus, Vascular Disorder Additional Family Medical History / Comment(s): emotional problems. age 64 of cva Father Family Medical History: Hypertension Additional Family Medical History / Comment(s): age 38 from [facility] General Exam General appearance: alert, in no apparent distress Head exam: Present: atraumatic, normocephalic, normal inspection Eye exam: Present: normal appearance, PERRL, EOMI. Absent: scleral icterus, conjunctival injection, periorbital swelling ENT exam: Present: normal exam, mucous membranes moist Neck exam: Present: normal inspection. Absent: tenderness, meningismus, lymphadenopathy Respiratory exam: Present: normal lung sounds bilaterally. Absent: respiratory distress, wheezes, rales, rhonchi, stridor Cardiovascular Exam: Present: regular rate, normal rhythm, normal heart sounds. Absent: systolic murmur, diastolic murmur, rubs, gallop, clicks GI/Abdominal exam: Present: soft, normal bowel sounds. Absent: distended, tenderness, guarding, rebound, rigid Extremities exam: Present: normal inspection, full ROM, normal capillary refill. Absent: tenderness, pedal edema, joint swelling, calf tenderness Back exam: Present: normal inspection Neurological exam: Present: alert, oriented X3, CN II-XII intact Psychiatric exam: Present: normal affect, normal mood Skin exam: Present: warm, dry, intact, normal color. Absent: rash Course Vital Signs 03/07/24 03/07/24 03/07/24 11:20 11:24 11:30 Temperature 98.2 F Pulse Rate 80 82 82 Respiratory 16 13 15 Rate Blood Pressure 135/86 135/86 O2 Sat by Pulse 97 96 97 Oximetry 03/07/24 03/07/24 03/07/24 12:00 12:30 13:00 Temperature Pulse Rate 78 80 76 Respiratory 14 14 16 Rate Blood Pressure 124/81 136/90 142/87 O2 Sat by Pulse 98 98 94 L Oximetry 03/07/24 03/07/24 03/07/24 14:00 14:05 15:00 Temperature Pulse Rate 75 76 78 Respiratory 15 20 16 Rate Blood Pressure 135/91 141/80 149/89 O2 Sat by Pulse 95 99 95 Oximetry 03/07/24 16:00 Temperature Pulse Rate 79 Respiratory 16 Rate Blood Pressure 149/84 O2 Sat by Pulse 95 Oximetry Medical Decision Making - Medical Decision Making Was pt. sent in by a medical professional or institution (, PA, TRAFFIC COURT REFEREE, urgent ca re, hospital, or jail...) When possible be specific @ -No Did you speak to anyone other than the patient for history (EMS, parent, family, police, friend...)? What history was obtained from this source @ -I spoke with EMS for history Did you review nursing and triage notes (agree or disagree)? Why? @ -I reviewed and agree with nursing and triage notes Were old charts reviewed (outside hosp., previous admission, EMS record, old EKG, old radiological studies, urgent care reports/EKG's, jail records)? Report findings @ -No old charts were reviewed Differential Diagnosis (chest pain, altered mental status, abdominal pain women, abdominal pain men, vaginal bleeding, weakness, fever, dyspnea, syncope, headache, dizziness, GI bleed, back pain, seizure, CVA, palpatations, mental health, musculoskeletal)? @ -Differential Weakness: Hypoglycemia, shock, sepsis, hyponatremia, anemia, infection, AK, ETOH, adverse medicine reaction, overdose, stroke, this is not meant to be an all-inclusive list. EKG interpreted by me (3pts min.). @ -Yes and demonstrates sinus rhythm with rate of 86. FL interval 173. QRS 89. QTc of 428. No acute ST segment elevations or depressions X-rays interpreted by me (1pt min.). @ -Yes and demonstrates no acute process CT interpreted by me (1pt min.). @ -None done U/S interpreted by me (1pt. min.). @ -None done What testing was considered but not performed or refused? (CT, X-rays, U/S, labs)? Why? @ -None What meds were considered but not given or refused? Why? @ -None Did you discuss the management of the patient with other professionals (professionals i.e. DrJhonatan, PA, TRAFFIC COURT REFEREE, lab, RT, psych nurse, social economist, asphalt blender, teacher, commanding officer traffic division, cyanide case hardener)? Give summary @ -Spoke with Dr. Bruce who will admit the patient Was smoking cessation discussed for >3mins.? @ -No Was critical care preformed (if so, how long)? @ -No Were there social determinants of health that impacted care today? How? (Homelessness, low income, unemployed, alcoholism, drug addiction, transportation, low edu. Level, literacy, decrease access to med. care, detention, rehab)? @ -No Was there de-escalation of care discussed even if they declined (Discuss DNR or withdrawal of care, Hospice)? DNR status @ -No What co-morbidities impacted this encounter? (DM, HTN, Smoking, COPD, CAD, Cancer, CVA, ARF, Chemo, Hep., AIDS, mental health diagnosis, sleep apnea, morbid obesity)? @ -A-fib Was patient admitted / discharged? Hospital course, mention meds given and route, prescriptions, significant lab abnormalities, going to OR and other pertinent info. @ -Upon arrival patient seen and evaluated in room 1. Thorough history and physical exam was performed. Patient has already converted to normal sinus rhythm. He still reports to generally not feeling well. Laboratory studies are conducted. Patient given IV fluids. Upon return the results are discussed with the patient. Patient remains weak with difficulty ambulating. Because of this I will admit the patient for overnight observation. Spoke with Dr. Bruce for admission Undiagnosed new problem with uncertain prognosis? @ -No Drug Therapy requiring intensive monitoring for toxicity (Heparin, Nitro, Insulin, Cardizem)? @ -No Were any procedures done? @ -No Diagnosis/symptom? @ -Acute weakness, A-fib with RVR Acute, or Chronic, or Acute on Chronic? @ -Acute Uncomplicated (without systemic symptoms) or Complicated (systemic symptoms)? @ -Complicated Side effects of treatment? @ -No Exacerbation, Progression, or Severe Exacerbation? @ -No Poses a threat to life or bodily function? How? (Chest pain, USA, AK, pneumonia, PE, COPD, DKA, ARF, appy, cholecystitis, CVA, Diverticulitis, Homicidal, Suicidal, threat to staff... and all critical care pts) @ -No - Lab Data Result diagrams: 03/08/24 06:41 03/08/24 06:41 Lab Results 03/07/24 03/07/24 03/07/24 Range/Units 11:54 11:54 11:54 WBC 8.6 (3.8-10.6) k/uL RBC 2.94 L (4.30-5.90) m/uL Hgb 9.7 L (13.0-17.5) gm/dL Hct 27.7 L (39.0-53.0) % MCV 94.3 (80.0-100.0) fL MCH 33.1 (25.0-35.0) pg MCHC 35.1 (31.0-37.0) g/dL RDW 12.1 (11.5-15.5) % Plt Count 145 L (150-450) k/uL MPV 8.5 Neutrophils % 89 % Lymphocytes % 4 % Monocytes % 6 % Eosinophils % 1 % Basophils % 0 % Neutrophils # 7.6 (1.3-7.7) k/uL Lymphocytes # 0.3 L (1.0-4.8) k/uL Monocytes # 0.5 (0-1.0) k/uL Eosinophils # 0.0 (0-0.7) k/uL Basophils # 0.0 (0-0.2) k/uL PT 11.6 (10.0-12.5) sec INR 1.1 (<1.2) APTT 31.7 H (22.0-30.0) sec Sodium 135 L (137-145) mmol/L Potassium 3.7 (3.5-5.1) mmol/L Chloride 104 (98-107) mmol/L Carbon Dioxide 22 (22-30) mmol/L Anion Gap 9 mmol/L BUN 18 (9-20) mg/dL Creatinine 1.27 H (0.66-1.25) mg/dL Est GFR (CKD-EPI)AfAm 67 (>60 ml/min/1.73 sqM) Est GFR (CKD-EPI)NonAf 58 (>60 ml/min/1.73 sqM) Glucose 104 H (74-99) mg/dL Calcium 9.1 (8.4-10.2) mg/dL Magnesium 1.7 (1.6-2.3) mg/dL Total Bilirubin 0.8 (0.2-1.3) mg/dL AST 23 (17-59) U/L ALT 10 (4-49) U/L Alkaline Phosphatase 70 (38-126) U/L Troponin I (0.000-0.034) ng/mL Total Protein 6.4 (6.3-8.2) g/dL Albumin 3.4 L (3.5-5.0) g/dL TSH 0.627 (0.465-4.680) mIU/L Urine Color Urine Appearance (Clear) Urine pH (5.0-8.0) Ur Specific [place] (1.001-1.035) Urine Protein (Negative) Urine Glucose (UA) (Negative) Urine Ketones (Negative) Urine Blood (Negative) Urine Nitrite (Negative) Urine Bilirubin (Negative) Urine Urobilinogen (<2.0) mg/dL Ur Leukocyte Esterase (Negative) Urine RBC (0-5) /hpf Urine WBC (0-5) /hpf Hyaline Casts (0-2) /lpf Urine Mucus (None) /hpf Urine Opiates Screen (NotDetected) Ur Oxycodone Screen (NotDetected) Urine Methadone Screen (NotDetected) Ur Barbiturates Screen (NotDetected) U Tricyclic Antidepress (NotDetected) Ur Phencyclidine Scrn (NotDetected) Ur Amphetamines Screen (NotDetected) U Methamphetamines Scrn (NotDetected) U Benzodiazepines Scrn (NotDetected) Urine Cocaine Screen (NotDetected) U Marijuana (THC) Screen (NotDetected) Serum Alcohol <10 mg/dL Influenza Type A (PCR) (Not Detectd) Influenza Type B (PCR) (Not Detectd) RSV (PCR) (Not Detectd) SARS-CoV-2 (PCR) (Not Detectd) 03/07/24 03/07/24 03/07/24 Range/Units 11:54 11:54 14:50 WBC (3.8-10.6) k/uL RBC (4.30-5.90) m/uL Hgb (13.0-17.5) gm/dL Hct (39.0-53.0) % MCV (80.0-100.0) fL MCH (25.0-35.0) pg MCHC (31.0-37.0) g/dL RDW (11.5-15.5) % Plt Count (150-450) k/uL MPV Neutrophils % % Lymphocytes % % Monocytes % % Eosinophils % % Basophils % % Neutrophils # (1.3-7.7) k/uL Lymphocytes # (1.0-4.8) k/uL Monocytes # (0-1.0) k/uL Eosinophils # (0-0.7) k/uL Basophils # (0-0.2) k/uL PT (10.0-12.5) sec INR (<1.2) APTT (22.0-30.0) sec Sodium (137-145) mmol/L Potassium (3.5-5.1) mmol/L Chloride (98-107) mmol/L Carbon Dioxide (22-30) mmol/L Anion Gap mmol/L BUN (9-20) mg/dL Creatinine (0.66-1.25) mg/dL Est GFR (CKD-EPI)AfAm (>60 ml/min/1.73 sqM) Est GFR (CKD-EPI)NonAf (>60 ml/min/1.73 sqM) Glucose (74-99) mg/dL Calcium (8.4-10.2) mg/dL Magnesium (1.6-2.3) mg/dL Total Bilirubin (0.2-1.3) mg/dL AST (17-59) U/L ALT (4-49) U/L Alkaline Phosphatase (38-126) U/L Troponin I 0.020 (0.000-0.034) ng/mL Total Protein (6.3-8.2) g/dL Albumin (3.5-5.0) g/dL TSH (0.465-4.680) mIU/L Urine Color Yellow Urine Appearance Clear (Clear) Urine pH 6.0 (5.0-8.0) Ur Specific [place] 1.027 (1.001-1.035) Urine Protein 1+ H (Negative) Urine Glucose (UA) Negative (Negative) Urine Ketones Negative (Negative) Urine Blood Small H (Negative) Urine Nitrite Negative (Negative) Urine Bilirubin Negative (Negative) Urine Urobilinogen 2.0 (<2.0) mg/dL Ur Leukocyte Esterase Negative (Negative) Urine RBC 10 H (0-5) /hpf Urine WBC 1 (0-5) /hpf Hyaline Casts 12 H (0-2) /lpf Urine Mucus Many H (None) /hpf Urine Opiates Screen Detected H (NotDetected) Ur Oxycodone Screen Detected H (NotDetected) Urine Methadone Screen Not Detected (NotDetected) Ur Barbiturates Screen Not Detected (NotDetected) U Tricyclic Antidepress Not Detected (NotDetected) Ur Phencyclidine Scrn Not Detected (NotDetected) Ur Amphetamines Screen Not Detected (NotDetected) U Methamphetamines Scrn Not Detected (NotDetected) U Benzodiazepines Scrn Detected H (NotDetected) Urine Cocaine Screen Not Detected (NotDetected) U Marijuana (THC) Screen Detected H (NotDetected) Serum Alcohol mg/dL Influenza Type A (PCR) Not Detected (Not Detectd) Influenza Type B (PCR) Not Detected (Not Detectd) RSV (PCR) Not Detected (Not Detectd) SARS-CoV-2 (PCR) Not Detected (Not Detectd) Disposition Clinical Impression: Atrial fibrillation with rapid ventricular response, Dehydration, Hypertension Disposition: ADMITTED IP TO THIS HOSP Is patient prescribed a controlled substance at d/c from ED?: No Time of Disposition: 15:06 Decision to Admit Reason: Admit from EC Decision Date: 03/07/24 Decision Time: 15:06
--- NOTE | 2024-03-07 13:36 | XR ---
EXAMINATION TYPE: XR KUB DATE OF EXAM: 03/07/2024 Comparison: None Clinical History: 68-year-old male constipation and weakness Findings: Lung bases are clear. Hyperinflation the visualized lower lungs. No evidence for free intraperitoneal air. No dilated small bowel or air-fluid levels. Scattered air throughout the colon. Mild to moderate stool in the distal sigmoid and rectum. Phleboliths in the left side of the pelvis. Impression: 1. Mild to moderate stool in the distal sigmoid colon and rectum. 2. No evidence for free air or bowel obstruction.
[2024-03-07] MEDS: NICOTINE 21MG/24HR PATCH TRANSDERM STA (14:48)
[2024-03-07] MEDS ORDERED: NALOXONE 0.4 MG/ML 1 ML VIAL IV PRN (15:06)
[2024-03-07 15:18] LABS: Amphetamine Screen,Urine Not Detected (NotDetected); Barbiturate Screen,Urine Not Detected (NotDetected); Benzodiazepines Screen,Urine Detected (NotDetected); Cocaine Screen,Urine Not Detected (NotDetected); Methadone Screen, Urine Not Detected (NotDetected); Opiate Screen,Urine Detected (NotDetected); Oxycodone Screen, Urine Detected (NotDetected); Phencyclidine Screen,Urine Not Detected (NotDetected); Tricyclic Antidepressant,Urine Not Detected (NotDetected); Urn Cannabinoid Scrn Detected (NotDetected)
[2024-03-07] MEDS ORDERED: ONDANSETRON 4 MG/2 ML VIAL IVP PRN (15:21)
[2024-03-07] MEDS ORDERED: ACETAMINOPHEN TAB 325 MG TAB PO PRN (15:21)
[2024-03-07 15:24] LABS: Appearance,Urine Clear (Clear); Bilirubin,Urine Negative (Negative); Blood,Urine Small (Negative); Color,Urine Yellow; Glucose,Urine (UA) Negative (Negative); Hyaline Casts,Urine 12 /lpf (0-2); Ketones,Urine Negative (Negative); Leukocyte Esterase,Urine Negative (Negative); Mucus,Urine Many /hpf; Nitrite,Urine Negative (Negative); Protein,Urine 1+ (Negative); RBC,Urine 10 /hpf (0-5); Specific Gravity,Urine 1.027 (1.001-1.035); WBC,Urine 1 /hpf (0-5)
[2024-03-07] MEDS: GABAPENTIN 400 MG CAP PO SCH (15:54)
[2024-03-07] MEDS: clonazePAM 0.5 MG TAB PO SCH (15:54)
[2024-03-07] MEDS: SODIUM CHLORIDE 0.9% 1,000 ML IV SCH (15:54)
[2024-03-07] MEDS: HYDROcodone/APAP 10-325MG 1 EACH TAB PO SCH (18:12)
[2024-03-07] MEDS: LACTULOSE 20 GM/30 ML CUP PO ONE (18:12)
--- NOTE | 2024-03-07 18:24 | P.HPIM ---
History of Present Illness H&P Date: 03/07/24 Chief Complaint: not feeling well This is a pleasant 68-year-old patient of Dr. Mustafa. Chronic stable medical conditions include COPD, peripheral artery disease, GERD, hypertension, bipolar disorder., peripheral Neuropathy from alcoholism. heavy drinking up to 2018. Patient continues to smoke. brother Sotero - legal guardian. Patient has chronic foot wounds for which he follows at the wound care center. Patient does wear special shoes. Follows Dr. Akbar in the wound care center. Cardiac catheterization July 2023 showed nonobstructive disease This morning patient is just not feeling well just felt tired rundown. No chest pain palpitation. Some shortness of breath which is more his baseline. Patient continues smoke a pack a day. He also was complaining of some chest pain across the front of the chest. Started on 6 AM that woke him up. Patient received aspirin and nitroglycerin sublingual. Apparently patient was in A-fib with rapid ventricular rate. Reverted to sinus rhythm. Patient not had a bowel movement for a week Review of systems: GEN.: Tired EYES: None HEENT: None NECK: None RESPIRATORY: Short of breath CARDIOVASCULAR: Chest pain GASTROINTESTINAL: No BM for 6 days GENITOURINARY: None MUSCULOSKELETAL: Joint pains, left foot wound LYMPHATICS: None HEMATOLOGICAL: None PSYCHIATRY: None NEUROLOGICAL: Numbness in the feet Past medical history to include: COPD, PAD, foot wounds, GERD, hypertension, bipolar disorder, peripheral neur opathy from alcoholism Social history: Stopped drinking heavy alcohol in 2018. Long-standing smoker currently down to few cigarettes a day. Brother Sotero legal guardian. Lives alone. Has some home help. Physical examination: VITAL SIGNS: 98.2, 80, 14, 136/90, 98% GENERAL: Reclining in bed, tired EYES: Pupils equal. Conjunctiva normal. HEENT: External appearance of nose and ears normal, oral cavity grossly normal. NECK: JVD not raised; masses not palpable. HEART: First and second heart sounds are normal; no edema. LUNGS: Respiratory rate increased; decreased breath sounds. Some wheezing ABDOMEN: Soft, nontender, liver spleen not palpable, no masses palpable. PSYCH: AOx3, mood affect a bit anxious MUSCULOSKELETAL:No Clubbing/cyanosis;muscles-grossly intact. Amputation of the fourth and fifth toe on the right to the metatarsal head. Wound in both the feet. NEUROLOGICAL: Cranial nerves grossly intact; no facial asymmetry, power grossly intact. Decreased sensation distally. INVESTIGATIONS, reviewed in the clinical context: March 07: White count 8.6 hemoglobin 9.7 platelets 145 sodium 135 potassium 3.7 BUN 18 creatinine 1.27 Troponin I 0.020, 0.035 Urine drug screen positive for opioids, oxycodone, benzodiazepine, marijuana Influenza type A, type B, RSV, COVID-19: Not detected EKG tracing normal sinus rhythm. Chest x-ray film personally reviewed by me-some cardiomegaly. Some rotation to the right Previous testing Cardiac catheterization: July 2023 minimal nonobstructive disease Assessment and plan: -Possible unstable angina in a patient with known minimal nonobstructive disease. Had a cardiac catheterization in 2022. Patient has continued to smok e. Possible precipitation by uncontrolled A-fib back in sinus rhythm In the setting of abnormal creatinine and some bump in troponin. Currently no chest pain Cardiology consulted -Bilateral foot , pressure ulcer wounds especially in the plantar aspect deep in a patient with known peripheral artery disease and peripheral neuropathy, underlying Charcot foot: Changes felt to be chronic. Follows at the wound care center with Dr. Akbar. Dr. Ramos from vascular consulted -COPD in a current smoker DuoNeb as needed -Chronic nicotine dependence cigarette smoker Nicotine patch 21- -Paroxysmal atrial fibrillation, had high heart rate at home now in sinus rhythm Telemetry. Eliquis - chronic kidney disease stage 3 from nephrosclerosis creatinine was 1.13 in July 2023 -GERD PPI -Essential Hypertension: Currently hypotensive Zestril. -Bipolar disorder, psychosis: Risperdal 2 mg at night and 1 mg in the morning -Painful Peripheral neuropathy secondary to history of alcoholism: Controlled Neurontin -Charcot foot -Full code -Legal guardian: Daquan Telemetry. Cardiology consulted. Nicotine patch. Discussed with patient. 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 History of Any Multi-Drug Resistant Organisms: MRSA, VRE Date of last positivie culture/infection: 01/21/22 MRSA & VRE MDRO Source:: RIGHT Foot Past Surgical History: Orthopedic Surgery Additional Past Surgical History / Comment(s): Amputation of the fourth and fifth toes on the right through the metatarsal heads, multiple I&D to nonhealing wounds on the R foot, repair of perforated ucler of stomach, EGD/colonoscopy, PICC lines in and out. Past Anesthesia/Blood Transfusion Reactions: Motion Sickness Additional Past Anesthesia/Blood Transfusion Reaction / Comment(s): claustrophobia Past Psychological History: ADD/ADHD, Anxiety, Depression Past Alcohol Use History: Unable to Obtain Past Drug Use History: Unable to Obtain Past Medical History Past Medical History: COPD, GERD/Reflux, Hyperlipidemia, Hypertension, Pneumonia, Skin Disorder, Vascular Disorder Additional Past Medical History / Comment(s): ETOH abuse, DT's, pancreatitis, chronic pain, PVD, PAD, neuropathy bilateral legs/feet and hands, past nonhealing wounds bilateral feet-past wound care center, 2007 osteomylitis L foot, chronic pain bilateral feet/legs and upper back-pt states he had thoracic vertebrae injury in past, peptic ulcer with surgery, psoriasis, sinus problems, past L clavicular fracture, acute renal failure, electrolyte disturbance. History of Any Multi-Drug Resistant Organisms: MRSA, VRE Date of last positivie culture/infection: 01/21/22 MRSA & VRE MDRO Source:: RIGHT Foot Past Surgical History: Orthopedic Surgery Additional Past Surgical History / Comment(s): Amputation of the fourth and fifth toes on the right through the metatarsal heads, multiple I&D to nonhealing wounds on the R foot, repair of perforated ucler of stomach, EGD/colonoscopy, PICC lines in and out. Past Anesthesia/Blood Transfusion Reactions: Motion Sickness Additional Past Anesthesia/Blood Transfusion Reaction / Comment(s): claustrophobia Past Psychological History: ADD/ADHD, Anxiety, Depression Smoking Status: Current every day smoker Past Alcohol Use History: None Reported Past Drug Use History: Marijuana - Past Family History Mother Family Medical History: CVA/TIA, Diabetes Mellitus, Vascular Disorder Additional Family Medical History / Comment(s): emotional problems. age 64 of cva Father Family Medical History: Hypertension Additional Family Medical History / Comment(s): age 38 from mva Medications and Allergies Home Medications Medication Instructions Recorded Confirmed Type Citalopram Hydrobromide [CeleXA] 20 mg PO DAILY 09/14/19 03/07/24 History clonazePAM [KlonoPIN] 0.5 mg PO TID 01/18/22 03/07/24 History HYDROcodone/APAP 10-325MG [[place] 1 tab PO QID 07/17/23 03/07/24 History 10-325] Apixaban [Eliquis] 5 mg PO BID #60 tab 07/21/23 03/07/24 Rx Atorvastatin [Lipitor] 80 mg PO HS #30 tab 07/21/23 03/07/24 Rx Gabapentin 400 mg PO TID #0 07/21/23 03/07/24 Rx risperiDONE [RisperDAL] 1 mg PO DAILY #30 tab 07/21/23 03/07/24 Rx Nitroglycerin Sl Tabs [Nitrostat] 0.4 mg SL Q5M PRN 01/07/24 03/07/24 History Pantoprazole [Protonix] 40 mg PO DAILY 01/07/24 03/07/24 History Tamsulosin HCl [Flomax] 0.4 mg PO HS 01/07/24 03/07/24 History risperiDONE [RisperDAL] 2 mg PO HS 01/07/24 03/07/24 History lisinopriL [Zestril] 20 mg PO DAILY #30 tab 01/11/24 03/07/24 Rx Allergies Allergy/AdvReac Type Severity Reaction Status Date / Time Penicillins Allergy Dyspnea, Verified 03/07/24 13:27 HIVES, THROAT SWELLING Physical Exam Vitals: Vital Signs Temp Pulse Resp BP Pulse Ox 03/07/24 16:00 79 16 149/84 95 03/07/24 15:00 78 16 149/89 95 03/07/24 14:05 76 20 141/80 99 03/07/24 14:00 75 15 135/91 95 03/07/24 13:00 76 16 142/87 94 L 03/07/24 12:30 80 14 136/90 98 03/07/24 12:00 78 14 124/81 98 03/07/24 11:30 82 15 135/86 97 03/07/24 11:24 82 13 96 03/07/24 11:20 98.2 F 80 16 135/86 97 Intake and Output 03/07/24 03/07/24 03/07/24 06:59 14:59 22:59 Other: Weight 90.718 kg Results CBC & Chem 7: 03/07/24 11:54 03/07/24 11:54 Labs: Abnormal Lab Results - Last 24 Hours (Table) 03/07/24 03/07/24 03/07/24 Range/Units 11:54 11:54 11:54 RBC 2.94 L (4.30-5.90) m/uL Hgb 9.7 L (13.0-17.5) gm/dL Hct 27.7 L (39.0-53.0) % Plt Count 145 L (150-450) k/uL Lymphocytes # 0.3 L (1.0-4.8) k/uL APTT 31.7 H (22.0-30.0) sec Sodium 135 L (137-145) mmol/L Creatinine 1.27 H (0.66-1.25) mg/dL Glucose 104 H (74-99) mg/dL Albumin 3.4 L (3.5-5.0) g/dL Urine Protein (Negative) Urine Blood (Negative) Urine RBC (0-5) /hpf Hyaline Casts (0-2) /lpf Urine Mucus (None) /hpf Urine Opiates Screen (NotDetected) Ur Oxycodone Screen (NotDetected) U Benzodiazepines Scrn (NotDetected) U Marijuana (THC) Screen (NotDetected) 03/07/24 Range/Units 11:54 RBC (4.30-5.90) m/uL Hgb (13.0-17.5) gm/dL Hct (39.0-53.0) % Plt Count (150-450) k/uL Lymphocytes # (1.0-4.8) k/uL APTT (22.0-30.0) sec Sodium (137-145) mmol/L Creatinine (0.66-1.25) mg/dL Glucose (74-99) mg/dL Albumin (3.5-5.0) g/dL Urine Protein 1+ H (Negative) Urine Blood Small H (Negative) Urine RBC 10 H (0-5) /hpf Hyaline Casts 12 H (0-2) /lpf Urine Mucus Many H (None) /hpf Urine Opiates Screen Detected H (NotDetected) Ur Oxycodone Screen Detected H (NotDetected) U Benzodiazepines Scrn Detected H (NotDetected) U Marijuana (THC) Screen Detected H (NotDetected)
[2024-03-07] MEDS: APIXABAN 5 MG TAB PO SCH (21:54)
[2024-03-07] MEDS: ATORVASTATIN 80 MG TAB PO SCH (21:54)
[2024-03-07] MEDS: TAMSULOSIN 0.4 MG CAP.ER.24H PO SCH (21:55)
[2024-03-07] MEDS: risperiDONE 1 MG TAB PO SCH (21:55)
[2024-03-08 08:06] LABS: Basophils % (A) 0 %; Eosinophils # (A) 0.2 k/uL (0-0.7); Eosinophils % (A) 3 %; HCT 31.9 % (39.0-53.0); HGB 10.8 gm/dL (13.0-17.5); Lymphocytes # (A) 1.1 k/uL (1.0-4.8); Lymphocytes % (A) 17 %; MCH 33.3 pg (25.0-35.0); MCV 98.1 fL (80.0-100.0); Mean Platelet Volume 8.3; Monocytes # (A) 0.5 k/uL (0-1.0); Monocytes % (A) 8 %; Neutrophils # (A) 4.3 k/uL (1.3-7.7); Neutrophils % (A) 69 %; Platelet Count 177 k/uL (150-450); RBC 3.25 m/uL (4.30-5.90); RDW 12.2 % (11.5-15.5); WBC 6.2 k/uL (3.8-10.6)
[2024-03-08 08:16] LABS: African American GFR (CKD) 84 (>60 ml/min/1.73 sqM); Anion Gap 8 mmol/L; Blood Urea Nitrogen 17 mg/dL (9-20); Calcium 8.8 mg/dL (8.4-10.2); Carbon Dioxide 24 mmol/L (22-30); Chloride 105 mmol/L (98-107); Glucose 85 mg/dL (74-99); Non-African American GFR(CKD) 73 (>60 ml/min/1.73 sqM); Potassium 3.9 mmol/L (3.5-5.1); Sodium 137 mmol/L (137-145)
[2024-03-08] MEDS: CITALOPRAM HYDROBROMIDE 20 MG TAB PO SCH (09:25)
[2024-03-08] MEDS: PANTOPRAZOLE 40 MG TABLET PO SCH (09:25)
[2024-03-08] MEDS: lisinopriL 20 MG TAB PO SCH (09:25)
[2024-03-08] MEDS: risperiDONE 1 MG TAB PO SCH (09:26)
--- NOTE | 2024-03-08 10:52 | P.CRDCN ---
History of Present Illness History of present illness: HISTORY OF PRESENT ILLNESS: This is a 68-year-old male with a past medical history significant for mild nonobstructive CAD, paroxysmal atrial fibrillation, hyperlipidemia, hypertension, nicotine dependence, and alcohol abuse. Patient does not follow with a layout technician. We have been asked to see the patient in consultation for elevated troponin. Patient examined at the bedside. Patient states he presented to the hospital with a chief complaint of nausea. He reports having mild ryan rtness of breath. He denied any chest pain or pressure. According to EMS the patient was tachycardic with a heart rate around 200. He was reportedly in atrial fibrillation at that time and converted to sinus mechanism. Patient is maintaining sinus mechanism this morning. He denies any palpitations. Vital signs are stable. DIAGNOSTICS: - EKG reveals sinus mechanism with PACs. No signs of acute ischemia. - Chest xray mild cardiomegaly and suspected underlying COPD. - Laboratory data: WBC 6.2. Hemoglobin 10.8. Platelet count 177. Sodium 137. Potassium 3.9. BUN 17. Creatinine 1.05. Troponin 0.020. 0.035. 0.034. - Current home cardiac medications include Eliquis 5 mg twice a day, Lipitor 80 mg at night, lisinopril 20 mg daily. - Most recent echocardiogram obtained in January 2024 revealed ejection fraction 50%, moderate aortic insufficiency with an eccentric jet, mild mitral regu rgitation - Cardiac catheterization history: July 2023 revealing mild nonobstructive CAD REVIEW OF SYSTEMS: At the time of my exam: CONSTITUTIONAL: Denies fever or chills. HEENT: Denies blurred vision, vision changes, or eye pain. Denies hemoptysis CARDIOVASCULAR: Denies chest pain. Denies orthopnea. Denies PND. Denies palpitations RESPIRATORY: Denies shortness of breath. GASTROINTESTINAL: Denies abdominal pain. Denies nausea or vomiting. HEMATOLOGIC: Denies bleeding disorders. GENITOURINARY: Denies any blood in urine. SKIN: Denies pruitis. Denies rash. PHYSICAL EXAM: VITAL SIGNS: Reviewed. GENERAL: Well-developed in no acute distress. HEENT: Head is normocephalic. Pupils are equal, round. Sclerae anicteric. Mucous membranes of the mouth are moist. Neck supple. No JVD or thyromegaly LUNGS: Respirations even and unlabored. Lungs essentially clear to auscultation bilaterally. HEART: Regular rate and rhythm. S1 and S2 heard. Diastolic murmur noted. ABDOMEN: Soft. Nondistended. Nontender. EXTREMITIES: Normal range of motion. No clubbing or cyanosis. Peripheral pulses intact. No lower extremity edema NEUROLOGIC: Awake and alert. Oriented x 3. ASSESSMENT: Nausea One isolated elevated troponin level of no clinical significance, may be secondary to reported AF with RVR Mild nonobstructive CAD, per cardiac catheterization July 2023 History of bradycardia, unable to tolerate beta-blockers Paroxysmal atrial fibrillation with RVR, currently maintaining sinus mechanism Moderate aortic insufficiency Hyperlipidemia Hypertension Nicotine dependence History of alcohol abuse Marijuana use Toxicology screen positive for marijuana, benzodiazepines, oxycodone, and opia kofi PLAN: An acute coronary event has been ruled out Resume home cardiac medications Patient unable to tolerate beta-blockers due to history of bradycardia in the past Continue anticoagulation with Eliquis No need to repeat echocardiogram as this was performed January 2024 No further inpatient recommendations from a cardiac standpoint We will sign off. Please reconsult if needed. Nurse practitioner note has been reviewed by physician. Signing provider agrees with the documented findings, assessment, and plan of care documented by RATE EXAMINER as a scribe. 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 History of Any Multi-Drug Resistant Organisms: MRSA, VRE Date of last positivie culture/infection: 01/21/22 MRSA & VRE MDRO Source:: RIGHT Foot Past Surgical History: Orthopedic Surgery Additional Past Surgical History / Comment(s): Amputation of the fourth and fifth toes on the right through the metatarsal heads, multiple I&D to nonhealing wounds on the R foot, repair of perforated ucler of stomach, EGD/colonoscopy, PICC lines in and out. Past Anesthesia/Blood Transfusion Reactions: Motion Sickness Additional Past Anesthesia/Blood Transfusion Reaction / Comment(s): claustrophobia Past Psychological History: ADD/ADHD, Anxiety, Depression Additional Psychological History / Comment(s): Pt lives alone. He states his legal guardian is now his brother, Sotero, . He states he has not drinkl alcohol. 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 He gets to [employer] by walking or his brothers drive him. No experience. No international travel. No animal exposures. Tobacco smoker daily relates Smoking Status: Current every day smoker Past Alcohol Use History: None Reported Additional Past Alcohol Use History / Comment(s): Pt started smoking at age 26 smoked 1 ppd. Pt stated he used to drink 1/5 vodka per day but has not drank in past 6 months. Past Drug Use History: Marijuana Additional Drug Use History / Comment(s): Occasional marijuana - Past Family History Mother Family Medical History: CVA/TIA, Diabetes Mellitus, Vascular Disorder Additional Family Medical History / Comment(s): emotional problems. age 64 of cva Father Family Medical History: Hypertension Additional Family Medical History / Comment(s): age 38 from mva Medications and Allergies Home Medications Medication Instructions Recorded Confirmed Type Citalopram Hydrobromide [CeleXA] 20 mg PO DAILY 09/14/19 03/07/24 History clonazePAM [KlonoPIN] 0.5 mg PO TID 01/18/22 03/07/24 History HYDROcodone/APAP 10-325MG [[place] 1 tab PO QID 07/17/23 03/07/24 History 10-325] Apixaban [Eliquis] 5 mg PO BID #60 tab 07/21/23 03/07/24 Rx Atorvastatin [Lipitor] 80 mg PO HS #30 tab 07/21/23 03/07/24 Rx Gabapentin 400 mg PO TID #0 07/21/23 03/07/24 Rx risperiDONE [RisperDAL] 1 mg PO DAILY #30 tab 07/21/23 03/07/24 Rx Nitroglycerin Sl Tabs [Nitrostat] 0.4 mg SL Q5M PRN 01/07/24 03/07/24 History Pantoprazole [Protonix] 40 mg PO DAILY 01/07/24 03/07/24 History Tamsulosin HCl [Flomax] 0.4 mg PO HS 01/07/24 03/07/24 History risperiDONE [RisperDAL] 2 mg PO HS 01/07/24 03/07/24 History lisinopriL [Zestril] 20 mg PO DAILY #30 tab 01/11/24 03/07/24 Rx Allergies Allergy/AdvReac Type Severity Reaction Status Date / Time Penicillins Allergy Dyspnea, Verified 03/07/24 13:27 HIVES, THROAT SWELLING Physical Exam Vitals: Vital Signs Temp Pulse Pulse Resp BP BP Pulse Ox 03/08/24 07:00 97.6 F 73 18 150/87 97 03/08/24 02:37 97.5 F L 69 15 112/69 97 03/07/24 18:35 98.3 F 81 18 141/81 98 03/07/24 18:28 98.3 F 81 18 141/81 98 03/07/24 16:00 79 16 149/84 95 03/07/24 15:00 78 16 149/89 95 03/07/24 14:05 76 20 141/80 99 03/07/24 14:00 75 15 135/91 95 03/07/24 13:00 76 16 142/87 94 L 03/07/24 12:30 80 14 136/90 98 03/07/24 12:00 78 14 124/81 98 03/07/24 11:30 82 15 135/86 97 03/07/24 11:24 82 13 96 03/07/24 11:20 98.2 F 80 16 135/86 97 Intake and Output 03/07/24 03/08/24 03/08/24 22:59 06:59 14:59 Other: # Bowel Movements 0 Weight 90.718 kg Results 03/08/24 06:41 03/08/24 06:41 Cardiac Enzymes 03/07/24 03/07/24 03/07/24 Range/Units 11:54 11:54 16:02 AST 23 (17-59) U/L Troponin I 0.020 0.035 H* (0.000-0.034) ng/mL 03/07/24 Range/Units 18:15 AST (17-59) U/L Troponin I 0.034 (0.000-0.034) ng/mL Coagulation 03/07/24 Range/Units 11:54 PT 11.6 (10.0-12.5) sec APTT 31.7 H (22.0-30.0) sec CBC 03/07/24 03/08/24 Range/Units 11:54 06:41 WBC 8.6 6.2 (3.8-10.6) k/uL RBC 2.94 L 3.25 L (4.30-5.90) m/uL Hgb 9.7 L 10.8 L (13.0-17.5) gm/dL Hct 27.7 L 31.9 L (39.0-53.0) % Plt Count 145 L 177 (150-450) k/uL Comprehensive Metabolic Panel 03/07/24 03/08/24 Range/Units 11:54 06:41 Sodium 135 L 137 (137-145) mmol/L Potassium 3.7 3.9 (3.5-5.1) mmol/L Chloride 104 105 (98-107) mmol/L Carbon Dioxide 22 24 (22-30) mmol/L BUN 18 17 (9-20) mg/dL Creatinine 1.27 H 1.05 (0.66-1.25) mg/dL Glucose 104 H 85 (74-99) mg/dL Calcium 9.1 8.8 (8.4-10.2) mg/dL AST 23 (17-59) U/L ALT 10 (4-49) U/L Alkaline Phosphatase 70 (38-126) U/L Total Protein 6.4 (6.3-8.2) g/dL Albumin 3.4 L (3.5-5.0) g/dL Current Medications Generic Name Dose Route Start Last Admin Trade Name Freq PRN Reason Stop Dose Admin Acetaminophen 650 mg 03/07/24 15:21 Acetaminophen Tab 325 Mg Tab PO Q6HR PRN Mild Pain or Fever > 100.5 Hydrocodone Bitart/Acetaminophen 1 each 03/07/24 18:00 03/07/24 21:54 Hydrocodone/Apap 10-325mg 1 Each Tab PO 1 each QID INGA Administration Apixaban 5 mg 03/07/24 21:00 03/07/24 21:54 Apixaban 5 Mg Tab PO 5 mg BID INGA Administration Protocol Atorvastatin Calcium 80 mg 03/07/24 21:00 03/07/24 21:54 Atorvastatin 80 Mg Tab PO 80 mg HS INGA Administration Citalopram Hydrobromide 20 mg 03/08/24 09:00 Citalopram Hydrobromide 20 Mg Tab PO DAILY INGA Clonazepam 0.5 mg 03/07/24 16:00 03/07/24 21:54 Clonazepam 0.5 Mg Tab PO 0.5 mg TID INGA Administration Gabapentin 400 mg 03/07/24 16:00 03/07/24 21:54 Gabapentin 400 Mg Cap PO 400 mg TID INGA Administration Sodium Chloride 1,000 mls @ 75 mls/hr 03/07/24 15:30 03/08/24 04:07 Saline 0.9% IV Not Given .[id number] INGA Lisinopril 20 mg 03/08/24 09:00 Lisinopril 20 Mg Tab PO DAILY INGA Naloxone HCl 0.2 mg 03/07/24 15:06 Naloxone 0.4 Mg/Ml 1 Ml Vial IV Q2M PRN Opioid Reversal Ondansetron HCl 4 mg 03/07/24 15:21 Ondansetron 4 Mg/2 Ml Vial IVP Q8HR PRN Nausea And Vomiting Pantoprazole Sodium 40 mg 03/08/24 09:00 Pantoprazole 40 Mg Tablet PO DAILY INGA Risperidone 1 mg 03/08/24 09:00 Risperidone 1 Mg Tab PO DAILY INGA Risperidone 2 mg 03/07/24 21:00 03/07/24 21:55 Risperidone 1 Mg Tab PO 2 mg HS INGA Administration Tamsulosin HCl 0.4 mg 03/07/24 21:00 03/07/24 21:55 Tamsulosin 0.4 Mg Cap.Er.24h PO 0.4 mg HS INGA Administration Intake and Output 03/07/24 03/08/24 03/08/24 22:59 06:59 14:59 Other: # Bowel Movements 0 Weight 90.718 kg 03/08/24 06:41 03/08/24 06:41
[2024-03-08] MEDS: bisacodyL 10 MG SUPP RECTAL STA (11:48)
[2024-03-08] MEDS: PSYLLIUM HUSK 100% 6 GM PACKET PO SCH (11:49)
--- NOTE | 2024-03-08 12:35 | P.CONS ---
History of Present Illness - Reason for Consult Consult date: 03/08/24 wound care - History of Present Illness This is a 68-year-old patient known to the wound care center being seen for nonhealing ulcerations to bilateral plantar feet. Patient has a callus to the left lateral hindfoot and a weeping area to the right lateral forefoot. Patient has no open ulcerations however he does have serous fluid from the right foot. Patient has history of EtOH abuse, COPD, GERD, hyperlipidemia, hypertension and chronic nonhealing ulcerations to bilateral feet. Review Of Systems: Constitutional: No fever, no chills, no night sweats. No weight change. No weakness, fatigue or lethargy. No daytime sleepiness. Integumentary:reports wounds, no lesions. No rash or pruritus. No unusual bruising. No change in hair or nails. Physical exam: General Appearance: Alert, cooperative, no distress, appears stated age. Skin: See HPI all other Skin color, texture, tugor normal, no rashes or lesions. Neurologic: Alert oriented x3 Assessment: 1.Nonpressure ulceration of right foot limited to skin breakdown Plan: 1. Apply absorptive silver and bordered foam. Change Thursday and Thursday. Patient will return to the wound care center at his scheduled appointment. Thank you for the consultation any questions please contact the wound care center DNP note has been reviewed and discussed with Dr. Baker and the impression and plan of care has been directed as dictated. 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 History of Any Multi-Drug Resistant Organisms: MRSA, VRE Year Discovered:: 01/21/22 MRSA & VRE MDRO Source:: RIGHT Foot Past Surgical History: Orthopedic Surgery Additional Past Surgical History / Comment(s): Amputation of the fourth and fifth toes on the right through the metatarsal heads, multiple I&D to nonhealing wounds on the R foot, repair of perforated ucler of stomach, EGD/colonoscopy, PICC lines in and out. Past Anesthesia/Blood Transfusion Reactions: Motion Sickness Additional Past Anesthesia/Blood Transfusion Reaction / Comm: claustrophobia Past Psychological History: ADD/ADHD, Anxiety, Depression Additional Psychological History / Comment(s): Pt lives alone. He states his legal guardian is now his brother, Sotero, . He states he has not drinkl alcohol. 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 He gets to [employer] by walking or his brothers drive him. No experience. No international travel. No animal exposures. Tobacco smoker daily relates Smoking Status: Current every day smoker Past Alcohol Use History: None Reported Additional Past Alcohol Use History / Comment(s): Pt started smoking at age 26 smoked 1 ppd. Pt stated he used to drink 1/5 vodka per day but has not drank in past 6 months. Past Drug Use History: Marijuana Additional Drug Use History / Comment(s): Occasional marijuana - Past Family History Mother Family Medical History: CVA/TIA, Diabetes Mellitus, Vascular Disorder Additional Family Medical History / Comment(s): emotional problems. age 64 of cva Father Family Medical History: Hypertension Additional Family Medical History / Comment(s): age 38 from mva Medications and Allergies Home Medications Medication Instructions Recorded Confirmed Type Citalopram Hydrobromide [CeleXA] 20 mg PO DAILY 09/14/19 03/07/24 History clonazePAM [KlonoPIN] 0.5 mg PO TID 01/18/22 03/07/24 History HYDROcodone/APAP 10-325MG [[place] 1 tab PO QID 07/17/23 03/07/24 History 10-325] Apixaban [Eliquis] 5 mg PO BID #60 tab 07/21/23 03/07/24 Rx Atorvastatin [Lipitor] 80 mg PO HS #30 tab 07/21/23 03/07/24 Rx Gabapentin 400 mg PO TID #0 07/21/23 03/07/24 Rx risperiDONE [RisperDAL] 1 mg PO DAILY #30 tab 07/21/23 03/07/24 Rx Nitroglycerin Sl Tabs [Nitrostat] 0.4 mg SL Q5M PRN 01/07/24 03/07/24 History Pantoprazole [Protonix] 40 mg PO DAILY 01/07/24 03/07/24 History Tamsulosin HCl [Flomax] 0.4 mg PO HS 01/07/24 03/07/24 History risperiDONE [RisperDAL] 2 mg PO HS 01/07/24 03/07/24 History lisinopriL [Zestril] 20 mg PO DAILY #30 tab 01/11/24 03/07/24 Rx Allergies Allergy/AdvReac Type Severity Reaction Status Date / Time Penicillins Allergy Dyspnea, Verified 03/07/24 13:27 HIVES, THROAT SWELLING Physical Exam Vitals: Vital Signs Temp Pulse Pulse Resp BP BP Pulse Ox 03/08/24 07:00 97.6 F 73 18 150/87 97 03/08/24 02:37 97.5 F L 69 15 112/69 97 03/07/24 18:35 98.3 F 81 18 141/81 98 03/07/24 18:28 98.3 F 81 18 141/81 98 03/07/24 16:00 79 16 149/84 95 03/07/24 15:00 78 16 149/89 95 03/07/24 14:05 76 20 141/80 99 03/07/24 14:00 75 15 135/91 95 03/07/24 13:00 76 16 142/87 94 L Intake and Output 03/07/24 03/08/24 03/08/24 22:59 06:59 14:59 Intake Total 118 Output Total 50 Balance 68 Intake: Oral 118 Output: Urine 50 Other: # Bowel Movements 0 Weight 90.718 kg Results CBC & Chem 7: 03/08/24 06:41 03/08/24 06:41 Labs: Abnormal Lab Results - Last 24 Hours (Table) 03/07/24 03/07/24 03/08/24 Range/Units 11:54 16:02 06:41 RBC 3.25 L (4.30-5.90) m/uL Hgb 10.8 L (13.0-17.5) gm/dL Hct 31.9 L (39.0-53.0) % Troponin I 0.035 H* (0.000-0.034) ng/mL Urine Protein 1+ H (Negative) Urine Blood Small H (Negative) Urine RBC 10 H (0-5) /hpf Hyaline Casts 12 H (0-2) /lpf Urine Mucus Many H (None) /hpf Urine Opiates Screen Detected H (NotDetected) Ur Oxycodone Screen Detected H (NotDetected) U Benzodiazepines Scrn Detected H (NotDetected) U Marijuana (THC) Screen Detected H (NotDetected) Assessment and Plan (1) Non-pressure chronic ulcer of other part of right foot limited to breakdown of skin Current Visit: Yes Status: Acute Code(s): L97.511 - NON-PRS CHRONIC ULCER OTH PRT R FOOT LIMITED TO BRKDWN SKIN SNOMED Code(s): [id number]
[2024-03-08] MEDS: NICOTINE 21MG/24HR PATCH TRANSDERM SCH (15:52)
--- NOTE | 2024-03-08 18:56 | P.PN ---
Progress Note - Text Progress Note Date: 03/08/24 Chief Complaint: not feeling well This is a pleasant 68-year-old patient of Dr. Mustafa. Chronic stable medical conditions include COPD, peripheral artery disease, GERD, hypertension, bipolar disorder., peripheral Neuropathy from alcoholism. heavy drinking up to 2018. Bella hudson continues to smoke. brother Sotero - legal guardian. Patient has chronic foot wounds for which he follows at the wound care center. Patient does wear special shoes. Follows Dr. Akbar in the wound care center. Cardiac catheterization July 2023 showed nonobstructive disease This morning patient is just not feeling well just felt tired rundown. No chest pain palpitation. Some shortness of breath which is more his baseline. Patient continues smoke a pack a day. He also was complaining of some chest pain across the front of the chest. Started on 6 AM that woke him up. Patient received aspirin and nitroglycerin sublingual. Apparently patient was in A-fib with rapid ventricular rate. Reverted to sinus rhythm. Patient not had a bowel movement for a week March 08: No bowel movement. Dulcolax suppository ordered. If no BM then enema. Wound care team ordered. Oral intake fair. Up in recliner. Active Medications Acetaminophen (Acetaminophen Tab 325 Mg Tab) 650 mg PO Q6HR PRN PRN Reason: Mild Pain or Fever > 100.5 Hydrocodone Bitart/Acetaminophen (Hydrocodone/Apap 10-325mg 1 Each Tab) 1 each PO QID [facility] Last Admin: 03/08/24 17:40 Dose: 1 each Apixaban (Apixaban 5 Mg Tab) 5 mg PO BID [facility]; Protocol Last Admin: 03/08/24 09:25 Dose: 5 mg Atorvastatin Calcium (Atorvastatin 80 Mg Tab) 80 mg PO [facility] Last Admin: 03/07/24 21:54 Dose: 80 mg Citalopram Hydrobromide (Citalopram Hydrobromide 20 Mg Tab) 20 mg PO DAILY [facility] Last Admin: 03/08/24 09:25 Dose: 20 mg Clonazepam (Clonazepam 0.5 Mg Tab) 0.5 mg PO TID [facility] Last Admin: 03/08/24 15:16 Dose: 0.5 mg Gabapentin (Gabapentin 400 Mg Cap) 400 mg PO TID [facility] Last Admin: 03/08/24 15:16 Dose: 400 mg Lisinopril (Lisinopril 20 Mg Tab) 20 mg PO DAILY [facility] Last Admin: 03/08/24 09:25 Dose: 20 mg Naloxone HCl (Naloxone 0.4 Mg/Ml 1 Ml Vial) 0.2 mg IV Q2M PRN PRN Reason: Opioid Reversal Nicotine (Nicotine 21mg/24hr Patch) 1 patch TRANSDERM DAILY [facility] Last Admin: 03/08/24 15:52 Dose: 1 patch Ondansetron HCl (Ondansetron 4 Mg/2 Ml Vial) 4 mg IVP Q8HR PRN PRN Reason: Nausea And Vomiting Pantoprazole Sodium (Pantoprazole 40 Mg Tablet) 40 mg PO DAILY [facility] Last Admin: 03/08/24 09:25 Dose: 40 mg Psyllium Hydrophilic Mucilloid (Psyllium Husk 100% 6 Gm Packet) 6 gm PO BID [facility] Last Admin: 03/08/24 11:49 Dose: 6 gm Risperidone (Risperidone 1 Mg Tab) 1 mg PO DAILY [facility] Last Admin: 03/08/24 09:26 Dose: 1 mg Risperidone (Risperidone 1 Mg Tab) 2 mg PO HS [facility] Last Admin: 03/07/24 21:55 Dose: 2 mg Tamsulosin HCl (Tamsulosin 0.4 Mg Cap.Er.24h) 0.4 mg PO [facility] Last Admin: 03/07/24 21:55 Dose: 0.4 mg Past medical history to include: COPD, PAD, foot wounds, GERD, hypertension, bipolar disorder, peripheral neuropathy from alcoholism Social history: Stopped drinking heavy alcohol in 2018. Long-standing smoker currently down to few cigarettes a day. Brother Sotero legal guardian. Lives alone. Has some home help. Physical examination: VITAL SIGNS: 98.5, 88, 18, 113/73, 100% room air GENERAL: Up in a recliner EYES: Pupils equal. Conjunctiva normal. HEENT: External appearance of nose and ears normal, oral cavity grossly normal. NECK: JVD not raised; masses not palpable. HEART: First and second heart sounds are normal; no edema. LUNGS: Respiratory rate increased; decreased breath sounds. Some wheezing ABDOMEN: Soft, nontender, liver spleen not palpable, no masses palpable. PSYCH: AOx3, mood affect a bit anxious MUSCULOSKELETAL:No Clubbing/cyanosis;muscles-grossly intact. Amputation of the fourth and fifth toe on the left. Wound in both the feet. NEUROLOGICAL: Cranial nerves grossly intact; no facial asymmetry, power grossly intact. Decreased sensation distally. INVESTIGATIONS, reviewed in the clinical context: March 08: White count 6.2 hemoglobin 10.8 platelets 177 potassium 3.9 creatinine 1.05 March 07: White count 8.6 hemoglobin 9.7 platelets 145 sodium 135 potassium 3.7 BUN 18 creatinine 1.27 Troponin I 0.020, 0.035 Urine drug screen positive for opioids, oxycodone, benzodiazepine, marijuana Influenza type A, type B, RSV, COVID-19: Not detected EKG tracing normal sinus rhythm. Chest x-ray film personally reviewed by me-some cardiomegaly. Some rotation to the right Previous testing Cardiac catheterization: July 2023 minimal nonobstructive disease Assessment and plan: -Possible unstable angina in a patient with known minimal nonobstructive disease. Had a cardiac catheterization in 2022. Patient has continued to smoke. Possible precipitation by uncontrolled A-fib back in sinus rhythm In the setting of abnormal creatinine and some bump in troponin. Currently no chest pain Cardiology saw the patient. No further change in medications -Bilateral foot , pressure ulcer wounds especially in the plantar aspect deep in a patient with known peripheral artery disease and peripheral neuropathy, underlying Charcot foot: Changes felt to be chronic. Follows at the wound care center with Dr. Akbar. Dr. Ramos from vascular consulted -COPD in a current smoker DuoNeb as needed -Chronic nicotine dependence cigarette smoker Nicotine patch 21- -Paroxysmal atrial fibrillation, had high heart rate at home now in sinus rhythm Telemetry. Eliquis - chronic kidney disease stage 3 from nephrosclerosis creatinine was 1.13 in July 2023 -GERD PPI -Essential Hypertension: Currently hypotensive Zestril. -Bipolar disorder, psychosis: Risperdal 2 mg at night and 1 mg in the morning -Painful Peripheral neuropathy secondary to history of alcoholism: Controlled Neurontin -Charcot foot -Full code -Legal guardian: Daquan Care team consulted. Dulcolax suppository, 3 if not then soapsuds enema. Plan for discharge tomorrow Past Medical History Past Medical History: COPD, GERD/Reflux, Hyperlipidemia, Hypertension, Pneumonia, Skin Disorder, Vascular Disorder Additional Past Medical History / Comment(s): ETOH abuse, DT's, pancreatitis, chronic pain, PVD, PAD, neuropathy bilateral legs/feet and hands, past nonhealing wounds bilateral feet-past wound care center, 2007 osteomylitis L foot, chronic pain bilateral feet/legs and upper back-pt states he had thoracic vertebrae injury in past, peptic ulcer with surgery, psoriasis, sinus problems, past L clavicular fracture, acute renal failure, electrolyte disturbance. History of Any Multi-Drug Resistant Organisms: MRSA, VRE Date of last positivie culture/infection: 01/21/22 MRSA & VRE MDRO Source:: RIGHT Foot Past Surgical History: Orthopedic Surgery Additional Past Surgical History / Comment(s): Amputation of the fourth and fifth toes on the right through the metatarsal heads, multiple I&D to nonhealing wounds on the R foot, repair of perforated ucler of stomach, EGD/colonoscopy, PICC lines in and out. Past Anesthesia/Blood Transfusion Reactions: Motion Sickness Additional Past Anesthesia/Blood Transfusion Reaction / Comment(s): claustrophobia Past Psychological History: ADD/ADHD, Anxiety, Depression Past Alcohol Use History: Unable to Obtain Past Drug Use History: Unable to Obtain
[2024-03-09 07:41] VITALS: BP 132/71; PULSE 82; RESP 18; TEMP 97.2
--- NOTE | 2024-03-09 16:00 | P.DS ---
Providers Date of admission: 03/07/24 15:06 Expected date of discharge: 03/09/24 Attending physician: Damien Bruce Primary care physician: Remington Mustafa [facility] Course: Chief Complaint: not feeling well This is a pleasant 68-year-old patient of Dr. Mustafa. Chronic stable medical conditions include COPD, peripheral artery disease, GERD, hypertension, bipolar disorder., peripheral Neuropathy from alcoholism. heavy drinking up to 2018. Patient continues to smoke. brother Sotero - legal guardian. Patient has chronic foot wounds for which he follows at the wound care center. Patient does wear special shoes. Follows Dr. Akbar in the wound care center. Cardiac catheterization July 2023 showed nonobstructive disease This morning patient is just not feeling well just felt tired rundown. No chest pain palpitation. Some shortness of breath which is more his baseline. Patient continues smoke a pack a day. He also was complaining of some chest pain across the front of the chest. Started on 6 AM that woke him up. Patient received aspirin and nitroglycerin sublingual. Apparently patient was in A-fib with rapid ventricular rate. Reverted to sinus rhythm. Patient not had a bowel movement for a week March 08: No bowel movement. Dulcolax suppository ordered. If no BM then enema. Wound care team ordered. Oral intake fair. Up in recliner. March 09: Patient had a bowel movement yesterday. Patient seen by wound care team. To follow-up at [facility] for wound care team office where he normally follows. Counseled about smoking. Eating fair. Past medical history to include: COPD, PAD, foot wounds, GERD, hypertension, bipolar disorder, peripheral neuropathy from alcoholism Social history: Stopped drinking heavy alcohol in 2017. Long-standing smoker currently down to few cigarettes a day. Brother Sotero legal guardian. Lives alone. Has some home help. Physical examination: VITAL SIGNS: 97.2, 82, 18, 132/71, 97% room air GENERAL: Up in a recliner, comfortable EYES: Pupils equal. Conjunctiva normal. HEENT: External appearance of nose and ears normal, oral cavity grossly normal. NECK: JVD not raised; masses not palpable. HEART: First and second heart sounds are normal; no edema. LUNGS: Respiratory rate increased; decreased breath sounds. Some wheezing ABDOMEN: Soft, nontender, liver spleen not palpable, no masses palpable. PSYCH: AOx3, mood affect a bit anxious MUSCULOSKELETAL:No Clubbing/cyanosis;muscles-grossly intact. Amputation of the fourth and fifth toe on the left. Wound in both the feet. NEUROLOGICAL: Cranial nerves grossly intact; no facial asymmetry, power grossly intact. Decreased sensation distally. INVESTIGATIONS, reviewed in the clinical context: March 08: White count 6.2 hemoglobin 10.8 platelets 177 potassium 3.9 creatinine 1.05 March 07: White count 8.6 hemoglobin 9.7 platelets 145 sodium 135 potassium 3.7 BUN 18 creatinine 1.27 Troponin I 0.020, 0.035 Urine drug screen positive for opioids, oxycodone, benzodiazepine, marijuana Influenza type A, type B, RSV, COVID-19: Not detected EKG tracing normal sinus rhythm. Chest x-ray film personally reviewed by me-some cardiomegaly. Some rotation to the right Previous testing Cardiac catheterization: July 2023 minimal nonobstructive disease Assessment and plan: -Possible unstable angina in a patient with known minimal nonobstructive disease. Had a cardiac catheterization in 2022. Patient has continued to smoke. Possible precipitation by uncontrolled A-fib back in sinus rhythm In the setting of abnormal creatinine and some bump in troponin. Currently no chest pain Cardiology saw the patient. No further change in medications -Bilateral foot , pressure ulcer wounds especially in the plantar aspect deep in a patient with known peripheral artery disease and peripheral neuropathy, underlying Charcot foot: Changes felt to be chronic. Follows at the wound care center with Dr. Akbar. Seen by Dr. Garduno from wound care team-local wound care and follow-up in their clinic -COPD in a current smoker DuoNeb as needed -Chronic nicotine dependence cigarette smoker Nicotine patch 21- -Paroxysmal atrial fibrillation, had high heart rate at home now in sinus rhythm Telemetry. Eliquis - chronic kidney disease stage 3 from nephrosclerosis creatinine was 1.13 in July 2023 -GERD PPI -Essential Hypertension: Currently hypotensive Zestril. -Bipolar disorder, psychosis: Risperdal 2 mg at night and 1 mg in the morning -Painful Peripheral neuropathy secondary to history of alcoholism: Controlled Neurontin -Charcot foot -Full code -Legal guardian: Daquan Disposition: Home Past Medical History Past Medical History: COPD, GERD/Reflux, Hyperlipidemia, Hypertension, Pneumonia, Skin Disorder, Vascular Disorder Additional Past Medical History / Comment(s): ETOH abuse, DT's, pancreatitis, chronic pain, PVD, PAD, neuropathy bilateral legs/feet and hands, past nonhealing wounds bilateral feet-past wound care center, 2006 osteomylitis L foot, chronic pain bilateral feet/legs and upper back-pt states he had thoracic vertebrae injury in past, peptic ulcer with surgery, psoriasis, sinus problems, past L clavicular fracture, acute renal failure, electrolyte disturbance. History of Any Multi-Drug Resistant Organisms: MRSA, VRE Date of last positivie culture/infection: 01/21/22 MRSA & VRE MDRO Source:: RIGHT Foot Past Surgical History: Orthopedic Surgery Additional Past Surgical History / Comment(s): Amputation of the fourth and fifth toes on the right through the metatarsal heads, multiple I&D to nonhealing wounds on the R foot, repair of perforated ucler of stomach, EGD/colonoscopy, PICC lines in and out. Past Anesthesia/Blood Transfusion Reactions: Motion Sickness Additional Past Anesthesia/Blood Transfusion Reaction / Comment(s): claustrophobia Past Psychological History: ADD/ADHD, Anxiety, Depression Past Alcohol Use History: Unable to Obtain Past Drug Use History: Unable to Obtain Plan - Discharge Summary New Discharge Prescriptions: New Nicotine 21Mg/24Hr Patch [Habitrol] 1 patch TRANSDERM DAILY #30 patch Psyllium Husk 100% [Metamucil Packet] 6 gm PO BID #60 packet Continue Citalopram Hydrobromide [CeleXA] 20 mg PO DAILY clonazePAM [KlonoPIN] 0.5 mg PO TID Gabapentin 400 mg PO TID #0 risperiDONE [RisperDAL] 2 mg PO HS Tamsulosin HCl [Flomax] 0.4 mg PO HS Nitroglycerin Sl Tabs [Nitrostat] 0.4 mg SL Q5M PRN PRN Reason: Chest Pain HYDROcodone/APAP 10-325MG [[place] 10-325] 1 tab PO QID Apixaban [Eliquis] 5 mg PO BID #60 tab Atorvastatin [Lipitor] 80 mg PO HS #30 tab risperiDONE [RisperDAL] 1 mg PO DAILY #30 tab Pantoprazole [Protonix] 40 mg PO DAILY lisinopriL [Zestril] 20 mg PO DAILY #30 tab Discharge Medication List Citalopram Hydrobromide [CeleXA] 20 mg PO DAILY 09/14/19 [History] clonazePAM [KlonoPIN] 0.5 mg PO TID 01/18/22 [History] HYDROcodone/APAP 10-325MG [[place] 10-325] 1 tab PO QID 07/17/23 [History] Apixaban [Eliquis] 5 mg PO BID #60 tab 07/21/23 [Rx] Atorvastatin [Lipitor] 80 mg PO HS #30 tab 07/21/23 [Rx] Gabapentin 400 mg PO TID #0 07/21/23 [Rx] risperiDONE [RisperDAL] 1 mg PO DAILY #30 tab 07/21/23 [Rx] Nitroglycerin Sl Tabs [Nitrostat] 0.4 mg SL Q5M PRN 01/07/24 [History] Pantoprazole [Protonix] 40 mg PO DAILY 01/07/24 [History] Tamsulosin HCl [Flomax] 0.4 mg PO HS 01/07/24 [History] risperiDONE [RisperDAL] 2 mg PO HS 01/07/24 [History] lisinopriL [Zestril] 20 mg PO DAILY #30 tab 01/11/24 [Rx] Nicotine 21Mg/24Hr Patch [Habitrol] 1 patch TRANSDERM DAILY #30 patch 03/09/24 [Rx] Psyllium Husk 100% [Metamucil Packet] 6 gm PO BID #60 packet 03/09/24 [Rx] Follow up Appointment(s)/Referral(s): Paco Alfaro MD [Medical Doctor] - 03/28/24 9:00 am Remington Mustafa MD [Primary Care Provider] - 1-2 days [facility], [NON-STAFF] - As Needed Wound Center,[facility] [NON-STAFF] - 1 Week Patient Instructions/Handouts: A-fib (Atrial Fibrillation) (DC), Chronic Hypertension (DC) Discharge Disposition: HOME WITH HOME HEALTH SERVICES
== END 2024-03-09 13:00 | disposition home health service (06) ==
LOC: EC 11:20 → 6NMEDSUR 15:06
PROVIDERS: ADMIT Hospitalist; ATTEND Hospitalist
DX: I51.9 Heart disease, unspecified (principal); R79.89 Other specified abnormal findings of blood chemistry; J44.9 Chronic obstructive pulmonary disease, unspecified; L97.511 Non-pressure chronic ulcer of other part of right foot limited to breakdown of skin; I12.9 Hypertensive chronic kidney disease with stage 1 through stage 4 chronic kidney disease, or unspecified chronic kidney disease; F17.210 Nicotine dependence, cigarettes, uncomplicated; N18.31 Chronic kidney disease, stage 3a; K21.9 Gastro-esophageal reflux disease without esophagitis; E11.610 Type 2 diabetes mellitus with diabetic neuropathic arthropathy; E11.621 Type 2 diabetes mellitus with foot ulcer; E86.0 Dehydration; I48.0 Paroxysmal atrial fibrillation; Z87.11 Personal history of peptic ulcer disease; Z83.3 Family history of diabetes mellitus; Z82.49 Family history of ischemic heart disease and other diseases of the circulatory system; Z82.3 Family history of stroke; Z79.899 Other long term (current) drug therapy; Z79.01 Long term (current) use of anticoagulants
CPT/HCPCS: 99285; 36415; 93005 ×2; 80053; 80048; 84443; 83735; 84484; 85025 ×2; 85610; 85730; 81001; 80306; 87636; 71046; 74018; G0378 ×3; G0480; S4990 ×3; 80320

== ENCOUNTER 2024-06-07 13:12 | Inpatient (IN) | payer MEDICARE, OTHER ==
--- NOTE | 2024-06-07 13:37 | ED ---
General Adult HPI - General Source: patient, RN notes reviewed Mode of arrival: EMS Limitations: no limitations <Luann Dowling - Last Filed: 06/07/24 13:35> - General Source: patient, RN notes reviewed, old records reviewed Mode of arrival: EMS Limitations: no limitations - History of Present Illness Radiation: non-radiation Severity scale (1-10): 0 Consistency: constant Improves with: none Worsens with: none Associated Symptoms: confusion <Mahamed Acosta - Last Filed: 06/11/24 17:27> - General Chief complaint: Altered Mental Status Stated complaint: AMS Time Seen by Provider: 06/07/24 13:15 - History of Present Illness Initial comments: Jonatan leslie is a 69-year-old male presents the emergency department via EMS for chief complaint of altered mental status and weakness. On questioning patient does not know why he is in the emergency department. He states that [employer] contacted EMS. He currently has no complaints. (Luann Dowling) This is a 69 female to the ER for evaluation of persistent weakness. Patient had EMS come to his house after [facility] [employer] [facility] visited [facility] and patient was found, concern for living situation covered in feces (Mahamed Acosta) - Related Data Home Medications Medication Instructions Recorded Confirmed Nitroglycerin Sl Tabs [Nitrostat] 0.4 mg SL Q5M PRN 01/07/24 06/07/24 Pantoprazole [Protonix] 40 mg PO DAILY 01/07/24 06/07/24 Tamsulosin HCl [Flomax] 0.4 mg PO HS 01/07/24 06/07/24 Gabapentin [Neurontin] 400 mg PO TID 06/07/24 06/07/24 Metoprolol Tartrate [Lopressor] 25 mg PO BID 06/07/24 06/07/24 Previous Rx's Medication Instructions Recorded Apixaban [Eliquis] 5 mg PO BID #60 tab 07/21/23 Atorvastatin [Lipitor] 80 mg PO HS #30 tab 07/21/23 Psyllium Husk 100% [Metamucil 6 gm PO BID #60 packet 03/09/24 Packet] Acetaminophen Tab [Tylenol] 500 mg PO Q6HR PRN tab 06/11/24 Aspirin 81 mg PO DAILY tab 06/11/24 HYDROcodone/APAP 10-325MG [[place] 1 tab PO QID PRN #12 tab 06/11/24 10-325] Ipratropium-Albuterol Nebulize 3 ml INHALATION BID each 06/11/24 [Duoneb 0.5 mg-3 mg/3 ml Soln] LORazepam [Ativan] 0.5 mg PO Q8HR PRN #9 tab 06/11/24 Nicotine 21Mg/24Hr Patch [Habitrol] 1 patch TRANSDERM DAILY patch 06/11/24 lisinopriL [Zestril] 20 mg PO HS #30 tab 06/11/24 Allergies Allergy/AdvReac Type Severity Reaction Status Date / Time Penicillins Allergy Dyspnea, Verified 06/07/24 19:05 HIVES, THROAT SWELLING Review of Systems ROS Other: All systems not noted in ROS Statement are negative. <Luann Dowling - Last Filed: 06/07/24 13:35> ROS Other: All systems not noted in ROS Statement are negative. <Mahamed Acosta - Last Filed: 06/11/24 17:27> ROS Statement: Those systems with pertinent positive or pertinent negative responses have been documented in the HPI. 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 History of Any Multi-Drug Resistant Organisms: MRSA, VRE Date of last positivie culture/infection: 01/21/22 MRSA & VRE MDRO Source:: RIGHT Foot Past Surgical History: Orthopedic Surgery Additional Past Surgical History / Comment(s): Amputation of the fourth and fifth toes on the right through the metatarsal heads, multiple I&D to nonhealing wounds on the R foot, repair of perforated ucler of stomach, EGD/colonoscopy, PICC lines in and out. Past Anesthesia/Blood Transfusion Reactions: Motion Sickness Additional Past Anesthesia/Blood Transfusion Reaction / Comment(s): claustrophobia Past Psychological History: ADD/ADHD, Anxiety, Depression Smoking Status: Current every day smoker Past Alcohol Use History: None Reported Past Drug Use History: Marijuana - Past Family History Mother Family Medical History: CVA/TIA, Diabetes Mellitus, Vascular Disorder Additional Family Medical History / Comment(s): emotional problems. age 64 of cva Father Family Medical History: Hypertension Additional Family Medical History / Comment(s): age 38 from mva <ViolagrahamLuann - Last Filed: 06/07/24 13:35> General Exam Limitations: no limitations <StigamarLuann - Last Filed: 06/07/24 13:35> General appearance: alert, in no apparent distress Head exam: Present: atraumatic, normocephalic, normal inspection Eye exam: Present: normal appearance, PERRL, EOMI. Absent: scleral icterus, conjunctival injection, periorbital swelling ENT exam: Present: normal exam, mucous membranes moist Neck exam: Present: normal inspection. Absent: tenderness, meningismus, lymphadenopathy Respiratory exam: Present: normal lung sounds bilaterally. Absent: respiratory distress, wheezes, rales, rhonchi, stridor Cardiovascular Exam: Present: regular rate, normal rhythm, normal heart sounds. Absent: systolic murmur, diastolic murmur, rubs, gallop, clicks GI/Abdominal exam: Present: soft, normal bowel sounds. Absent: distended, tenderness, guarding, rebound, rigid Extremities exam: Present: normal inspection, full ROM, normal capillary refill. Absent: tenderness, pedal edema, joint swelling, calf tenderness Back exam: Present: normal inspection Neurological exam: Present: alert, oriented X3, CN II-XII intact Psychiatric exam: Present: normal affect, normal mood Skin exam: Present: warm, dry, intact, normal color. Absent: rash <Mahamed Acosta - Last Filed: 06/11/24 17:27> - General Exam Comments Initial Comments: Visual Physical Exam Vital signs reviewed General: ill-appearing, nontoxic, no acute distress. Head: Normocephalic, atraumatic Eyes: PERRLA, EOMI ENT: Airway patent Chest: Nonlabored breathing Skin: No visual rash, normal skin tone Neuro: Alert and oriented 3 Musculoskeletal: No gross abnormalities (Stieler,Luann) Course <Mahamed Acosta - Last Filed: 06/11/24 17:27> Vital Signs 06/07/24 06/07/24 06/07/24 13:17 16:45 18:55 Temperature 98.3 F Pulse Rate 50 L 90 92 Pulse Rate [ Adjunct Physics Instructor ] Respiratory 16 18 18 Rate Blood Pressure 157/83 134/83 151/90 Blood Pressure [Left Arm] O2 Sat by Pulse 95 98 98 Oximetry 06/07/24 06/08/24 06/08/24 21:00 01:02 02:00 Temperature Pulse Rate 76 Pulse Rate [ 86 77 Adjunct Physics Instructor ] Respiratory 18 18 20 Rate Blood Pressure 166/99 Blood Pressure 152/81 135/100 [Left Arm] O2 Sat by Pulse 97 99 97 Oximetry 06/08/24 06/08/24 04:00 06:56 Temperature Pulse Rate Pulse Rate [ 68 85 Adjunct Physics Instructor ] Respiratory 16 Rate Blood Pressure Blood Pressure 119/80 127/111 [Left Arm] O2 Sat by Pulse 98 98 Oximetry - Reevaluation(s) Reevaluation #1: 06/07/24 19:28 Medical records reviewed (Mahamed Acosta) Reevaluation #2: 06/07/24 19:28 Patient symptoms unchanged (Mahamed Acosta) Reevaluation #3: 06/07/24 19:28 Patient informed of results and questions answered (Mahamed Acosta) Reevaluation #4: Was pt. sent in by a medical professional or institution (, PA, COMPLAINT CLERK, urgent care, hospital, or jail...) When possible be specific @ -no Did you speak to anyone other than the patient for history (EMS, parent, family, police, friend...)? What history was obtained from this source @ -no Did you review nursing and triage notes (agree or disagree)? Why? @ -agree Are old charts reviewed (outside hosp., previous admission, EMS record, old EKG, old radiological studies, urgent care reports/EKG's, jail records)? Report findings @ -yes Differential Diagnosis (chest pain, altered mental status, abdominal pain women, abdominal pain men, vaginal bleeding, weakness, fever, dyspnea, syncope, headache, dizziness, GI bleed, back pain, seizure, CVA, palpatations, mental health, musculoskeletal)? @ -prior EKG interpreted by me (3pts min.). @ -yes X-rays interpreted by me (1pt min.). @ -yes negative for acute disease CT interpreted by me (1pt min.). @ -Yes negative for acute disease U/S interpreted by me (1pt. min.). @ -no What testing was considered but not performed or refused? (CT, X-rays, U/S, labs)? Why? @ -none What meds were considered but not given or refused? Why? @ -none Did you discuss the management of the patient with other professionals (professionals i.e. Dr., PA, COMPLAINT CLERK, lab, RT, psych nurse, social service liaison, aircraft pneudraulics repairer, teacher, consumer loan officer, housing case manager)? Give summary @ -no Was smoking cessation discussed for >3mins.? @ -no Was critical care preformed (if so, how long)? @ -no Were there social determinants of health that impacted care today? How? (Homelessness, low income, unemployed, alcoholism, drug addiction, transportation, low edu. Level, literacy, decrease access to med. care, longterm, r ehab)? @ -none Was there de-escalation of care discussed even if they declined (Discuss DNR or withdrawal of care, Hospice)? DNR status @ -no What co-morbidities impacted this encounter? (DM, HTN, Smoking, COPD, CAD, Cancer, CVA, ARF, Chemo, Hep., AIDS, mental health diagnosis, sleep apnea, morbid obesity)? @ -none Was patient admitted / discharged? Hospital course, mention meds given and route , prescriptions, significant lab abnormalities, going to OR and other pertinent info. @ - 69 male will be admitted for altered mental status debility weakness unknown baseline confusion here in the ER will admit for further monitoring and evaluation Admitted Undiagnosed new problem with uncertain prognosis? @ -no Drug Therapy requiring intensive monitoring for toxicity (Heparin, Nitro, Insulin, Cardizem)? @ -no Were any procedures done? @ -no Diagnosis/symptom? @ -Debility weakness and increased confusion Acute, or Chronic, or Acute on Chronic? @ -Acute Uncomplicated (without systemic symptoms) or Complicated (systemic symptoms)? @ -Complicated Side effects of treatment? @ -no Exacerbation, Progression, or Severe Exacerbation? @ -exacerbation Poses a threat to life or bodily function? How? (Chest pain, [place], [place], pneumonia, PE, COPD, DKA, ARF, appy, cholecystitis, CVA, Diverticulitis, Homicidal, Suicidal, threat to staff... and all critical care pts) @ -yes extremes of age (Mahamed Acosta) Reevaluation #5: Differential Altered Mental Status: Hypoglycemia, DKA, hypercapnia, ETOH, overdose, CO poisoning, trauma, myxedema coma, HTN encephalopathy, infection, encephalitis, psychosis, intercranial hemorrhage, hepatic encephalopathy, meningitis, CVA, this is not meant to be an all-inclusive list (Mahamed Acosta) - Consultations Consultation #1: Spoke with many physicians who agreed to admit this patient (Mahamed Acosta) EKG Findings - EKG Comments: EKG Findings:: EKG is A-fib with RVR 104 QRS 86 QTc 449 - EKG Results: EKG: interpreted by ERMD <Mahamed Acosta - Last Filed: 06/11/24 17:27> Medical Decision Making <Luann Dowling - Last Filed: 06/07/24 13:35> - Lab Data Result diagrams: 06/10/24 05:10 06/10/24 05:10 - EKG Data -: EKG Interpreted by Me - Radiology Data Radiology results: report reviewed (CT brain is negative for acute disease and chest x-ray is negative for acute disease, CT angio head neck is negative for acute disease), image reviewed <Mahamed Acosta - Last Filed: 06/11/24 17:27> - Medical Decision Making I completed the quick note portion of this chart signed Luann Dowling PA-C (Luann Dowling) 69 male will be admitted for altered mental status debility weakness unknown baseline confusion here in the ER will admit for further monitoring and evaluation (Mahamed Acosta) - Lab Data Lab Results 06/07/24 06/07/24 06/07/24 Range/Units 15:22 15:22 15:22 WBC 8.9 (3.8-10.6) k/uL RBC 3.87 L (4.30-5.90) m/uL Hgb 11.5 L (13.0-17.5) gm/dL Hct 35.0 L (39.0-53.0) % MCV 90.4 (80.0-100.0) fL MCH 29.8 (25.0-35.0) pg MCHC 33.0 (31.0-37.0) g/dL RDW 13.6 (11.5-15.5) % Plt Count 255 (150-450) k/uL MPV 7.2 Immature Gran % (Auto) % Absolute Nucleated RBC % Neutrophils % 79 % Lymphocytes % 12 % Monocytes % 7 % Eosinophils % 0 % Basophils % 0 % Immature Gran # (0.00-0.04) X 10*3/uL Neutrophils # 7.0 (1.3-7.7) k/uL Lymphocytes # 1.1 (1.0-4.8) k/uL Monocytes # 0.6 (0-1.0) k/uL Eosinophils # 0.0 (0-0.7) k/uL Basophils # 0.0 (0-0.2) k/uL NRBC/100 WBC Diff (0.00-0.01) X 10*3/uL PT 11.2 (10.0-12.5) sec INR 1.0 (<1.2) APTT 23.4 (22.0-30.0) sec Sodium 143 (137-145) mmol/L Potassium 4.0 (3.5-5.1) mmol/L Chloride 103 (98-107) mmol/L Carbon Dioxide 27 (22-30) mmol/L Anion Gap 13 mmol/L BUN 33 H (9-20) mg/dL Creatinine 1.05 (0.66-1.25) mg/dL Est GFR (CKD-EPI) (>=60) Est GFR (CKD-EPI)AfAm 84 (>60 ml/min/1.73 sqM) Est GFR (CKD-EPI)NonAf 73 (>60 ml/min/1.73 sqM) BUN/Creatinine Ratio (12.00-20.00) Ratio Glucose 119 H (74-99) mg/dL POC Glucose (mg/dL) (70-110) mg/dL POC Glu Reference And Instruction Librarian ID Calcium 9.9 (8.4-10.2) mg/dL Phosphorus (2.4-5.1) mg/dL Magnesium 2.0 (1.6-2.3) mg/dL Total Bilirubin 1.2 (0.2-1.3) mg/dL AST 57 (17-59) U/L ALT 24 (4-49) U/L Alkaline Phosphatase 76 (38-126) U/L Ammonia (<30) umol/L Creatine Kinase 367 H (55-170) U/L Troponin I (0.000-0.034) ng/mL Total Protein 8.4 H (6.3-8.2) g/dL Albumin 4.3 (3.5-5.0) g/dL Globulin (1.6-3.3) g/dL Albumin/Globulin Ratio (1.60-3.17) Ratio Urine Color Urine Appearance (Clear) Urine pH (5.0-8.0) Ur Specific [place] (1.001-1.035) Urine Protein (Negative) Urine Glucose (UA) (Negative) Urine Ketones (Negative) Urine Blood (Negative) Urine Nitrite (Negative) Urine Bilirubin (Negative) Urine Urobilinogen (<2.0) mg/dL Ur Leukocyte Esterase (Negative) Urine RBC (0-5) /hpf Urine WBC (0-5) /hpf Ur Squamous Epith Cells (0-4) /hpf Amorphous Sediment (None) /hpf Hyaline Casts (0-2) /lpf Urine Mucus (None) /hpf Urine Opiates Screen (NotDetected) Ur Oxycodone Screen (NotDetected) Urine Methadone Screen (NotDetected) Ur Barbiturates Screen (NotDetected) U Tricyclic Antidepress (NotDetected) Ur Phencyclidine Scrn (NotDetected) Ur Amphetamines Screen (NotDetected) U Methamphetamines Scrn (NotDetected) U Benzodiazepines Scrn (NotDetected) Urine Cocaine Screen (NotDetected) U Marijuana (THC) Screen (NotDetected) Serum Alcohol <10 mg/dL 06/07/24 06/07/24 06/08/24 Range/Units 15:22 23:39 00:15 WBC (3.8-10.6) k/uL RBC (4.30-5.90) m/uL Hgb (13.0-17.5) gm/dL Hct (39.0-53.0) % MCV (80.0-100.0) fL MCH (25.0-35.0) pg MCHC (31.0-37.0) g/dL RDW (11.5-15.5) % Plt Count (150-450) k/uL MPV Immature Gran % (Auto) % Absolute Nucleated RBC % Neutrophils % % Lymphocytes % % Monocytes % % Eosinophils % % Basophils % % Immature Gran # (0.00-0.04) X 10*3/uL Neutrophils # (1.3-7.7) k/uL Lymphocytes # (1.0-4.8) k/uL Monocytes # (0-1.0) k/uL Eosinophils # (0-0.7) k/uL Basophils # (0-0.2) k/uL NRBC/100 WBC Diff (0.00-0.01) X 10*3/uL PT (10.0-12.5) sec INR (<1.2) APTT (22.0-30.0) sec Sodium (137-145) mmol/L Potassium (3.5-5.1) mmol/L Chloride (98-107) mmol/L Carbon Dioxide (22-30) mmol/L Anion Gap mmol/L BUN (9-20) mg/dL Creatinine (0.66-1.25) mg/dL Est GFR (CKD-EPI) (>=60) Est GFR (CKD-EPI)AfAm (>60 ml/min/1.73 sqM) Est GFR (CKD-EPI)NonAf (>60 ml/min/1.73 sqM) BUN/Creatinine Ratio (12.00-20.00) Ratio Glucose (74-99) mg/dL POC Glucose (mg/dL) 123 H (70-110) mg/dL POC Glu Reference And Instruction Librarian [facility] Calcium (8.4-10.2) mg/dL Phosphorus (2.4-5.1) mg/dL Magnesium (1.6-2.3) mg/dL Total Bilirubin (0.2-1.3) mg/dL AST (17-59) U/L ALT (4-49) U/L Alkaline Phosphatase (38-126) U/L Ammonia <9 (<30) umol/L Creatine Kinase (55-170) U/L Troponin I <0.012 (0.000-0.034) ng/mL Total Protein (6.3-8.2) g/dL Albumin (3.5-5.0) g/dL Globulin (1.6-3.3) g/dL Albumin/Globulin Ratio (1.60-3.17) Ratio Urine Color Urine Appearance (Clear) Urine pH (5.0-8.0) Ur Specific [place] (1.001-1.035) Urine Protein (Negative) Urine Glucose (UA) (Negative) Urine Ketones (Negative) Urine Blood (Negative) Urine Nitrite (Negative) Urine Bilirubin (Negative) Urine Urobilinogen (<2.0) mg/dL Ur Leukocyte Esterase (Negative) Urine RBC (0-5) /hpf Urine WBC (0-5) /hpf Ur Squamous Epith Cells (0-4) /hpf Amorphous Sediment (None) /hpf Hyaline Casts (0-2) /lpf Urine Mucus (None) /hpf Urine Opiates Screen (NotDetected) Ur Oxycodone Screen (NotDetected) Urine Methadone Screen (NotDetected) Ur Barbiturates Screen (NotDetected) U Tricyclic Antidepress (NotDetected) Ur Phencyclidine Scrn (NotDetected) Ur Amphetamines Screen (NotDetected) U Methamphetamines Scrn (NotDetected) U Benzodiazepines Scrn (NotDetected) Urine Cocaine Screen (NotDetected) U Marijuana (THC) Screen (NotDetected) Serum Alcohol mg/dL 06/08/24 06/08/24 06/08/24 Range/Units 00:30 03:50 03:50 WBC 8.54 (3.8-10.6) k/uL RBC 3.60 L (4.30-5.90) m/uL Hgb 10.8 L (13.0-17.5) gm/dL Hct 32.5 L (39.0-53.0) % MCV 90.3 (80.0-100.0) fL MCH 30.0 (25.0-35.0) pg MCHC 33.2 (31.0-37.0) g/dL RDW 13.2 (11.5-15.5) % Plt Count 204 (150-450) k/uL MPV 10.2 Immature Gran % (Auto) 0.20 % Absolute Nucleated RBC 0 % Neutrophils % 76.2 % Lymphocytes % 13.8 % Monocytes % 9.4 % Eosinophils % 0.2 % Basophils % 0.2 % Immature Gran # 0.02 (0.00-0.04) X 10*3/uL Neutrophils # 6.50 (1.3-7.7) k/uL Lymphocytes # 1.18 (1.0-4.8) k/uL Monocytes # 0.80 (0-1.0) k/uL Eosinophils # 0.02 L (0-0.7) k/uL Basophils # 0.02 (0-0.2) k/uL NRBC/100 WBC Diff 0 (0.00-0.01) X 10*3/uL PT (10.0-12.5) sec INR (<1.2) APTT (22.0-30.0) sec Sodium 144 (137-145) mmol/L Potassium 3.5 (3.5-5.1) mmol/L Chloride 105 (98-107) mmol/L Carbon Dioxide 24.3 (22-30) mmol/L Anion Gap 14.70 H mmol/L BUN 30.8 H (9-20) mg/dL Creatinine 1.2 (0.66-1.25) mg/dL Est GFR (CKD-EPI) 65 (>=60) Est GFR (CKD-EPI)AfAm (>60 ml/min/1.73 sqM) Est GFR (CKD-EPI)NonAf (>60 ml/min/1.73 sqM) BUN/Creatinine Ratio 25.67 H (12.00-20.00) Ratio Glucose 108 (74-99) mg/dL POC Glucose (mg/dL) (70-110) mg/dL POC Glu Reference And Instruction Librarian ID Calcium 8.9 (8.4-10.2) mg/dL Phosphorus 3.5 (2.4-5.1) mg/dL Magnesium 2.1 (1.6-2.3) mg/dL Total Bilirubin 0.8 (0.2-1.3) mg/dL AST 43 H (17-59) U/L ALT 19 (4-49) U/L Alkaline Phosphatase 70 (38-126) U/L Ammonia (<30) umol/L Creatine Kinase (55-170) U/L Troponin I (0.000-0.034) ng/mL Total Protein 7.6 (6.3-8.2) g/dL Albumin 3.9 (3.5-5.0) g/dL Globulin 3.7 H (1.6-3.3) g/dL Albumin/Globulin Ratio 1.05 L (1.60-3.17) Ratio Urine Color Light Red Urine Appearance Clear (Clear) Urine pH 6.0 (5.0-8.0) Ur Specific [place] 1.037 H (1.001-1.035) Urine Protein 2+ H (Negative) Urine Glucose (UA) Negative (Negative) Urine Ketones 1+ H (Negative) Urine Blood Trace H (Negative) Urine Nitrite Negative (Negative) Urine Bilirubin 1+ H (Negative) Urine Urobilinogen 3.0 (<2.0) mg/dL Ur Leukocyte Esterase Negative (Negative) Urine RBC 1 (0-5) /hpf Urine WBC 6 H (0-5) /hpf Ur Squamous Epith Cells 2 (0-4) /hpf Amorphous Sediment Occasional H (None) /hpf Hyaline Casts 16 H (0-2) /lpf Urine Mucus Many H (None) /hpf Urine Opiates Screen Detected H (NotDetected) Ur Oxycodone Screen Not Detected (NotDetected) Urine Methadone Screen Not Detected (NotDetected) Ur Barbiturates Screen Not Detected (NotDetected) U Tricyclic Antidepress Not Detected (NotDetected) Ur Phencyclidine Scrn Not Detected (NotDetected) Ur Amphetamines Screen Not Detected (NotDetected) U Methamphetamines Scrn Not Detected (NotDetected) U Benzodiazepines Scrn Not Detected (NotDetected) Urine Cocaine Screen Not Detected (NotDetected) U Marijuana (THC) Screen Detected H (NotDetected) Serum Alcohol mg/dL Disposition <Luann Dowling - Last Filed: 06/07/24 13:35> Is patient prescribed a controlled substance at d/c from ED?: No Time of Disposition: 19:30 <Mahamed Acosta - Last Filed: 06/11/24 17:27> Clinical Impression: Mental status change, Delirium due to general medical condition, Weakness, Dehydration Disposition: ADMITTED IP TO THIS HOSP Condition: Fair
--- NOTE | 2024-06-07 14:04 | CT ---
EXAMINATION TYPE: CT brain wo con CT DLP: 1095.4 mGycm, Automated exposure control for dose reduction was used. DATE OF EXAM: 06/07/2024 1:56 PM COMPARISON: Prior CT Brain from 07/17/2023 . CLINICAL INDICATION:Male, 69 years old with history of Altered mental status, Altered mental status TECHNIQUE: Brain: Multiple axial CT images of the brain were obtained without IV contrast. . Coronal and sagitta l reformats reviewed. FINDINGS: Brain: Extra-axial spaces: No abnormal extra-axial fluid collections. Ventricular system: Within normal limits Cerebral parenchyma: Mild cerebral atrophy. No acute intraparenchymal hemorrhage or mass effect. The mtz-white junction is well differentiated. Scattered hypoattenuating areas are seen within the michael ventricular white matter. Cerebellum: Unremarkable. Mass effect: No evidence of midline shift. Intracranial vasculature: Atherosclerotic calcifications of the intracranial vessels. Soft tissues: Normal. Calvarium/osseous structures: No depressed skull fracture. Paranasal sinuses and mastoid air cells: Mastoid air cells are clear. Left inferior maxillary sinus 1 .3; a likely mucous retention cyst versus polyp. Remaining paranasal sinuses are clear. Visualized orbits: Orbital contents are intact. IMPRESSION: 1. No acute intracranial process. 2. Nonspecific white matter changes, likely secondary to chronic small vessel ischemic disease. [facility], , 06/07/2024 2:01 PM
[2024-06-07 16:11] LABS: Basophils % (A) 0 %; Eosinophils % (A) 0 %; HGB 11.5 gm/dL (13.0-17.5); Lymphocytes # (A) 1.1 k/uL (1.0-4.8); Lymphocytes % (A) 12 %; MCH 29.8 pg (25.0-35.0); MCV 90.4 fL (80.0-100.0); Mean Platelet Volume 7.2; Monocytes # (A) 0.6 k/uL (0-1.0); Monocytes % (A) 7 %; Neutrophils % (A) 79 %; Platelet Count 255 k/uL (150-450); RBC 3.87 m/uL (4.30-5.90); RDW 13.6 % (11.5-15.5); WBC 8.9 k/uL (3.8-10.6)
[2024-06-07 16:25] LABS: Partial Thromboplastin Time 23.4 sec (22.0-30.0); Prothrombin Time 11.2 sec (10.0-12.5)
[2024-06-07 16:26] LABS: ALT 24 U/L (4-49); AST 57 U/L (17-59); African American GFR (CKD) 84 (>60 ml/min/1.73 sqM); Albumin 4.3 g/dL (3.5-5.0); Alcohol <10 mg/dL; Alkaline Phosphatase 76 U/L (38-126); Anion Gap 13 mmol/L; Blood Urea Nitrogen 33 mg/dL (9-20); Calcium 9.9 mg/dL (8.4-10.2); Carbon Dioxide 27 mmol/L (22-30); Chloride 103 mmol/L (98-107); Creatine Kinase 367 U/L (55-170); Glucose 119 mg/dL (74-99); Non-African American GFR(CKD) 73 (>60 ml/min/1.73 sqM); Sodium 143 mmol/L (137-145); Total Bilirubin 1.2 mg/dL (0.2-1.3); Total Protein 8.4 g/dL (6.3-8.2)
[2024-06-07] MEDS ORDERED: NALOXONE 0.4 MG/ML 1 ML VIAL IV PRN (19:23)
--- NOTE | 2024-06-08 01:25 | CT ---
EXAM: CT Head Without Intravenous Contrast CLINICAL HISTORY: ITS.REASON CT Reason: AMS TECHNIQUE: Axial computed tomography images of the head/brain without intravenous contrast. CTDI is 49.1 mGy and DLP is 1373.4 mGy-cm. This CT exam was performed using one or more of the following dose reduction techniques: automated exposure control, adjustment of the mA and/or kV according to patient size, and/or use of iterative reconstruction technique. COMPARISON: No relevant prior studies available. FINDINGS: Brain: No hemorrhage or mass effect. Ventricles: No hydrocephalus. Bones/joints: Unremarkable. Soft tissues: Unremarkable. Sinuses: No air fluid level. Mastoid air cells: Clear. IMPRESSION: No acute hemorrhage, hydrocephalus, or mass effect.
[2024-06-08 01:43] LABS: Amorphous Sediment,Urine Occasional /hpf; Appearance,Urine Clear (Clear); Bilirubin,Urine 1+ (Negative); Blood,Urine Trace (Negative); Color,Urine Light Red; Glucose,Urine (UA) Negative (Negative); Hyaline Casts,Urine 16 /lpf (0-2); Ketones,Urine 1+ (Negative); Leukocyte Esterase,Urine Negative (Negative); Mucus,Urine Many /hpf; Nitrite,Urine Negative (Negative); Protein,Urine 2+ (Negative); RBC,Urine 1 /hpf (0-5); Specific Gravity,Urine 1.037 (1.001-1.035); Squamous Epithelial Cell,Urine 2 /hpf (0-4); WBC,Urine 6 /hpf (0-5)
[2024-06-08] MEDS: ASPIRIN 300 MG SUPP RECTAL STA (02:00)
[2024-06-08 02:02] LABS: Amphetamine Screen,Urine Not Detected (NotDetected); Barbiturate Screen,Urine Not Detected (NotDetected); Benzodiazepines Screen,Urine Not Detected (NotDetected); Cocaine Screen,Urine Not Detected (NotDetected); Methadone Screen, Urine Not Detected (NotDetected); Opiate Screen,Urine Detected (NotDetected); Oxycodone Screen, Urine Not Detected (NotDetected); Phencyclidine Screen,Urine Not Detected (NotDetected); Tricyclic Antidepressant,Urine Not Detected (NotDetected); Urn Cannabinoid Scrn Detected (NotDetected)
--- NOTE | 2024-06-08 02:34 | CT ---
EXAM: CT Angiography Head With Intravenous Contrast CLINICAL HISTORY: ITS.REASON CT Reason: Posible stroke TECHNIQUE: Axial computed tomographic angiography images of the head with intravenous contrast. CTDI is 33.6 mGy and DLP is 28.8 mGy-cm. This CT exam was performed using one or more of the following dose reduction techniques: automated exposure control, adjustment of the mA and/or kV according to patient size, and/or use of iterative reconstruction technique. MIP reconstructed images were created and reviewed. COMPARISON: No relevant prior studies available. FINDINGS: Right internal carotid artery: No significant stenosis. No aneurysm. Right anterior cerebral artery: No significant stenosis. No aneurysm. Right middle cerebral artery: No significant stenosis. No aneurysm. Right posterior cerebral artery: No significant stenosis. No aneurysm. Right vertebral artery: Unremarkable. Left internal carotid artery: No significant stenosis. No aneurysm. Left anterior cerebral artery: No significant stenosis. No aneurysm. Left middle cerebral artery: No significant stenosis. No aneurysm. Left posterior cerebral artery: No significant stenosis. No aneurysm. Left vertebral artery: Unremarkable. Basilar artery: No significant stenosis. No aneurysm. IMPRESSION: No significant stenosis. EXAM: CT Angiography Neck With Intravenous Contrast CLINICAL HISTORY: ITS.REASON CT Reason: Posible stroke TECHNIQUE: Routine carotid CT angiography protocol was performed with intravenous contrast. NASCET criteria using the distal ICAs for comparison were used for evaluation of stenoses. CTDI is 8 mGy and DLP is 383.8 mGy-cm. This CT exam was performed using one or more of the following dose reduction techniques: automated exposure control, adjustment of the mA and/or kV according to patient size, and/or use of iterative reconstruction technique. MIP reconstructed images were created and reviewed. COMPARISON: None. FINDINGS: VASCULATURE: Right common carotid artery: No significant stenosis. No dissection. Right internal carotid artery: No significant stenosis. No dissection. Right vertebral artery: No significant stenosis. No dissection. Left common carotid artery: No significant stenosis. No dissection. Left internal carotid artery: No significant stenosis. No dissection. Left vertebral artery: No significant stenosis. No dissection. NECK: Lung apices: Clear. Calcified hilar lymph nodes, likely due to granulomatous disease. CAROTID STENOSIS REFERENCE USING NASCET CRITERIA: % ICA stenosis = (1 - narrowest ICA diameter/diameter of distal cervical ICA) x 100. Mild - <50% stenosis. Moderate - 50-69% stenosis. Severe - 70-94% stenosis. Near occlusion - 95-99% stenosis. Occluded - 100% stenosis. IMPRESSION: No significant stenosis. Calcified hilar lymph nodes, likely due to granulomatous disease.
[2024-06-08 08:48] LABS: Basophils # (A) 0.02 X 10*3/uL (0.00-0.10); Basophils % (A) 0.2 %; Eosinophils # (A) 0.02 X 10*3/uL (0.04-0.35); Eosinophils % (A) 0.2 %; HCT 32.5 % (39.6-50.0); HGB 10.8 g/dL (13.0-17.0); Lymphocytes # (A) 1.18 X 10*3/uL (0.90-5.00); Lymphocytes % (A) 13.8 %; MCHC 33.2 g/dL (32.0-37.0); MCV 90.3 FL (80.0-97.0); Mean Platelet Volume 10.2 FL (9.5-12.2); Monocytes % (A) 9.4 %; NRBC Per 100 WBC 0 X 10*3/uL (0.00-0.01); Neutrophils % (A) 76.2 %; Platelet Count 204 X 10*3/uL (140-440); RDW 13.2 % (11.5-14.5); WBC 8.54 X 10*3/uL (4.50-10.00)
[2024-06-08 08:56] LABS: ALT 19 U/L (10-49); AST 43 U/L (14-35); Albumin 3.9 g/dL (3.8-4.9); Albumin/Globulin Ratio 1.05 Ratio (1.60-3.17); Alkaline Phosphatase 70 U/L (41-126); BUN/Creat Ratio 25.67 Ratio (12.00-20.00); Blood Urea Nitrogen 30.8 mg/dL (9.0-27.0); Calcium 8.9 mg/dL (8.7-10.3); Carbon Dioxide 24.3 mmol/L (21.6-31.8); Chloride 105 mmol/L (96-109); Globulin 3.7 g/dL (1.6-3.3); Glucose 108 mg/dL (70-110); Magnesium 2.1 mg/dL (1.5-2.4); Phosphorus 3.5 mg/dL (2.4-5.1); Potassium 3.5 mmol/L (3.5-5.5); Sodium 144 mmol/L (135-145); Total Bilirubin 0.8 mg/dL (0.3-1.2); Total Protein 7.6 g/dL (6.2-8.2)
[2024-06-08] MEDS ORDERED: NITROGLYCERIN SL TABS 0.4 MG TAB SUBLINGUAL PRN (10:51)
[2024-06-08] MEDS: clonazePAM 0.5 MG TAB PO SCH (11:44)
[2024-06-08] MEDS: PANTOPRAZOLE 40 MG TABLET PO SCH (11:44)
[2024-06-08] MEDS: GABAPENTIN 400 MG CAP PO SCH (11:44)
[2024-06-08] MEDS: ENOXAPARIN 40 MG/0.4 ML SYRINGE SQ SCH (11:44)
[2024-06-08] MEDS: METOPROLOL TARTRATE 25 MG TAB PO SCH (11:44)
[2024-06-08] MEDS: ASPIRIN 300 MG SUPP RECTAL SCH (11:44)
[2024-06-08 11:47] LABS: Ionized Calcium 4.7 mg/dL (4.5-5.3)
[2024-06-08 11:55] LABS: Magnesium 2.1 mg/dL (1.6-2.3)
[2024-06-08] MEDS: risperiDONE 1 MG TAB PO SCH ×2 (12:41→20:29)
[2024-06-08] MEDS: DEXTROSE 5%-0.45% NACL 1,000 ML IV SCH (13:21)
--- NOTE | 2024-06-08 16:09 | P.CN ---
Psychiatric Consult - . Consult date: 06/08/24 Consult:: 06/08/24 16:07 CONSULTATION Reason for consult: Altered mental status identifying Data: The patient is a 69 years-old, single, white male female, who lives in [place] in a Reason for admission: Weakness and confusion. History of present illness: The patient was brought to the emergency department via EMS with c/o weakness and confusion. As per nursing staff, the pills were found on the floor with an open bottle on the floor. He was confused and disoriented. The nurse noted that the patient patient has history of Opioid abuse and heavy alcoholism. After initial examination and other work-up, the patient was transferred to medical floor for further management. During this evaluation, the patient was unable to engage in any conversation. He had a blank stare. He was unaware of his surroundings. He was not responding to any questions. He did not seem to be comprehending the question. He had fixed gaze. He would move his head up and down without paying attention to the questions. He was tremulous all over. He could not tell me his name. He could not tell me where he was. The evaluation was terminated at this point. Patients brother Brandon and the Guardian could not be reached on phone numbers provided in the EMR. History of past psychiatric illness: Not known. Past medical history: COPD, HTN, GERD, Vascular disorder Substance abuse history: Unknown MSE: Could not be performed. Diagnosis: Neurocognitive deficit secondary systemic causes, most likely due to medications. Rec: Will attempt to re-evaluate patient tomorrow. Medication recommendations: Suggest Holding the Risperdal and avoiding antipsychotics till the patient is less tremulous and able to communicate. Low dose benzodiazepine can be used for acute agitation
[2024-06-08] MEDS: TAMSULOSIN 0.4 MG CAP.ER.24H PO SCH (20:28)
[2024-06-08] MEDS: ATORVASTATIN 80 MG TAB PO SCH (20:28)
--- NOTE | 2024-06-08 21:22 | P.HPIM ---
History of Present Illness H&P Date: 06/08/24 Chief Complaint: Altered mental status 69-year-old patient of Dr. Mustafa. medical conditions include COPD, peripheral artery disease, GERD, hypertension, bipolar disorder., peripheral Neuropathy from alcoholism. heavy drinking up to 2018. smoker. brother Sotero - legal [place]. Patient has chronic foot wounds for which he follows at the wound care center. Patient does wear special shoes. Follows Dr. Akbar in the wound care center. Cardiac catheterization July 2023 showed nonobstructive disease Patient was seen by me this morning in the ER. Patient is lying in bed. Lethargic. Shaking all over. Including the face. Somewhat stiff in the arms.-Not able to give any history: As per the EMS report: Patient was found by the [facility] and that difficult time arousing the patient. EMS was able to wake the patient but patient is lethargic. Bottles of oxycodone tramadol and bottles prescribed to him on the counter next to him. Patient smelling of urine and feces. It did not look like he had a bath recently. Blood sugars 190. EKG showed atrial f ibrillation. Patient is a bit more alert and oriented during transport. According to the patient's brother on the phone per the EMS patient been having failure to thrive and not able to take care of himself. Has not been eating or drinking well. He has not been dressing himself and was in the same out for the visiting nurse that put on on him a few days ago. He with his history of alcoholism but has been no relapse. Review of systems cannot be obtained because of patient's mental status Past medical history to include: COPD, PAD, foot wounds, GERD, hypertension, bipolar disorder, peripheral neuropathy from alcoholism Social history: Stopped drinking heavy alcohol in 2018. Long-standing smoker-currently unknown. Brother Sotero legal guardian. Lives alone. [facility] Physical examination: VITAL SIGNS: 98.3, 90, 18, 134 x 83, 98% room air upon presentation GENERAL: Reclining in bed, shaking-limbs including head, somewhat stiff in his limbs. Distal fingers well-approximated flexed at the wrist. EYES: Pupils equal. Conjunctiva normal. HEENT: External appearance of nose and ears normal, oral cavity decreased hygiene NECK: JVD not raised; masses not palpable. HEART: First and second heart sounds are normal; no edema. LUNGS: Respiratory rate increased; decreased breath sounds. Some wheezing ABDOMEN: Soft, nontender, liver spleen not palpable, no masses palpable. PSYCH: Patient appears to be delirious. Not able to answer any questions MUSCULOSKELETAL:No Clubbing/cyanosis;muscles-grossly intact. Amputation of the fourth and fifth toe on the left. Wound in both the feet. NEUROLOGICAL: Cranial nerves grossly intact; no facial asymmetry, tremors all over. Some rigidity upper extremity. All the fingers approximately distally as a: And flexed at the wrist INVESTIGATIONS, reviewed in the clinical context: June 08, 2024: White count 8.5 hemoglobin 10.8 platelets 204 sodium 144 potassium 3.5 BUN 30.8 creatinine 1.2 ionized calcium 4.7 phosphorus 3.5 UA positive for protein 2+ squamous epithelial cells. Urine drug screen positive for opiates, marijuana serum alcohol less than 10 EKG tracing personally reviewed by me-sinus rhythm. PVC. Nonspecific ST-T wave changes CT brain: No acute reported CT angiogram: No significant stenosis Previous testing Cardiac catheterization: July 2023 minimal nonobstructive disease Assessment and plan: -Acute metabolic encephalopathy/delirium. Patient reported by his brother to be not taking care of himself. It was in the same outfit put by visiting nurses some few days ago. Patient had bottles of Ultram and oxycodone next to him. Patient may well have taken a bit of excessive of these. Patient also listed to have Risperdal, Klonopin, gabapentin. It is possible also patient could be withdrawing from the same. Patient is rather tremulous. Not able to answer questions Patient's home medication will be resumed. Consult psychiatry. Consult neurology. Neurochecks. EEG. -Bilateral foot , pressure ulcer wounds especially in the plantar aspect deep in a patient with known peripheral artery disease and peripheral neuropathy, underlying Charcot foot: Changes felt to be chronic. Follows at the wound care center with Dr. Akbar. Consult wound care team -COPD in a current smoker DuoNeb 4 times daily -Chronic nicotine dependence cigarette smoker Nicotine patch 21 -Paroxysmal atrial fibrillation,-sinus rhythm Telemetry. Hold Eliquis for now. - chronic kidney disease stage 3 from nephrosclerosis creatinine was 1.13 in July 2023 -GERD PPI -Essential Hypertension: Lopressor. -Bipolar disorder, psychosis: Risperdal 2 mg at night and 1 mg in the morning. Klonopin. Celexa Psychiatry consulted -Painful Peripheral neuropathy secondary to history of alcoholism: Controlled Neurontin -Charcot foot -Full code -Legal guardian: JohnathonChito Given patient delirium. Not able to follow commands. Spoke to the nurse this morning. Patient will need to be fed and supervised. Consult neurology, psychiatry. Hold Eliquis for now. Subcu Lovenox prophylactic. 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 History of Any Multi-Drug Resistant Organisms: MRSA, VRE Date of last positivie culture/infection: 01/21/22 MRSA & VRE MDRO Source:: RIGHT Foot Past Surgical History: Orthopedic Surgery Additional Past Surgical History / Comment(s): Amputation of the fourth and fifth toes on the right through the metatarsal heads, multiple I&D to nonhealing wounds on the R foot, repair of perforated ucler of stomach, EGD/colonoscopy, PICC lines in and out. Past Anesthesia/Blood Transfusion Reactions: Motion Sickness Additional Past Anesthesia/Blood Transfusion Reaction / Comment(s): claustrophobia Past Psychological History: ADD/ADHD, Anxiety, Depression Additional Psychological History / Comment(s): Tobacco smoker daily relates Smoking Status: Current every day smoker Past Alcohol Use History: None Reported Additional Past Alcohol Use History / Comment(s): Pt started smoking at age 26 smoked 1 ppd. Pt stated he used to drink 1/5 vodka per day but has not drank in past 6 months. Past Drug Use History: Marijuana Additional Drug Use History / Comment(s): Occasional marijuana - Past Family History Mother Family Medical History: CVA/TIA, Diabetes Mellitus, Vascular Disorder Additional Family Medical History / Comment(s): emotional problems. age 64 of cva Father Family Medical History: Hypertension Additional Family Medical History / Comment(s): age 38 from mva Medications and Allergies Home Medications Medication Instructions Recorded Confirmed Type Citalopram Hydrobromide [CeleXA] 20 mg PO DAILY 09/14/19 06/07/24 History clonazePAM [KlonoPIN] 0.5 mg PO TID 01/18/22 06/07/24 History HYDROcodone/APAP 10-325MG [[place] 1 tab PO QID 07/17/23 06/07/24 History 10-325] Apixaban [Eliquis] 5 mg PO BID #60 tab 07/21/23 06/07/24 Rx Atorvastatin [Lipitor] 80 mg PO HS #30 tab 07/21/23 06/07/24 Rx risperiDONE [RisperDAL] 1 mg PO DAILY #30 tab 07/21/23 06/07/24 Rx Nitroglycerin Sl Tabs [Nitrostat] 0.4 mg SL Q5M PRN 01/07/24 06/07/24 History Pantoprazole [Protonix] 40 mg PO DAILY 01/07/24 06/07/24 History Tamsulosin HCl [Flomax] 0.4 mg PO HS 01/07/24 06/07/24 History risperiDONE [RisperDAL] 2 mg PO HS 01/07/24 06/07/24 History lisinopriL [Zestril] 20 mg PO DAILY #30 tab 01/11/24 06/07/24 Rx Psyllium Husk 100% [Metamucil 6 gm PO BID #60 packet 03/09/24 06/07/24 Rx Packet] Gabapentin [Neurontin] 400 mg PO TID 06/07/24 06/07/24 History Metoprolol Tartrate [Lopressor] 25 mg PO BID 06/07/24 06/07/24 History Allergies Allergy/AdvReac Type Severity Reaction Status Date / Time Penicillins Allergy Dyspnea, Verified 06/07/24 19:05 HIVES, THROAT SWELLING Physical Exam Vitals: Vital Signs Temp Pulse Pulse Resp BP BP Pulse Ox 06/08/24 08:00 98.8 F 78 20 121/87 97 06/08/24 06:56 85 127/111 98 06/08/24 04:00 68 16 119/80 98 06/08/24 02:00 77 20 135/100 97 06/08/24 01:02 86 18 152/81 99 06/07/24 21:00 76 18 166/99 97 06/07/24 18:55 92 18 151/90 98 06/07/24 16:45 90 18 134/83 98 06/07/24 13:17 98.3 F 50 L 16 157/83 95 Intake and Output 06/07/24 06/08/24 06/08/24 22:59 06:59 14:59 Output Total 250 Balance -250 Output: Urine 250 Other: Voiding Method External Catheter Weight 86.183 kg Results CBC & Chem 7: 06/08/24 03:50 06/08/24 03:50 Labs: Abnormal Lab Results - Last 24 Hours (Table) 06/07/24 06/07/24 06/08/24 Range/Units 15:22 15:22 00:30 RBC 3.87 L (4.30-5.90) m/uL Hgb 11.5 L (13.0-17.5) gm/dL Hct 35.0 L (39.0-53.0) % Eosinophils # (0.04-0.35) X 10*3/uL Anion Gap (4.00-12.00) mmol/L BUN 33 H (9-20) mg/dL BUN/Creatinine Ratio (12.00-20.00) Ratio Glucose 119 H (74-99) mg/dL AST (14-35) U/L Creatine Kinase 367 H (55-170) U/L Total Protein 8.4 H (6.3-8.2) g/dL Globulin (1.6-3.3) g/dL Albumin/Globulin Ratio (1.60-3.17) Ratio Ur Specific [place] 1.037 H (1.001-1.035) Urine Protein 2+ H (Negative) Urine Ketones 1+ H (Negative) Urine Blood Trace H (Negative) Urine Bilirubin 1+ H (Negative) Urine WBC 6 H (0-5) /hpf Amorphous Sediment Occasional H (None) /hpf Hyaline Casts 16 H (0-2) /lpf Urine Mucus Many H (None) /hpf Urine Opiates Screen Detected H (NotDetected) U Marijuana (THC) Screen Detected H (NotDetected) 06/08/24 06/08/24 Range/Units 03:50 03:50 RBC 3.60 L (4.30-5.90) m/uL Hgb 10.8 L (13.0-17.5) gm/dL Hct 32.5 L (39.0-53.0) % Eosinophils # 0.02 L (0.04-0.35) X 10*3/uL Anion Gap 14.70 H (4.00-12.00) mmol/L BUN 30.8 H (9-20) mg/dL BUN/Creatinine Ratio 25.67 H (12.00-20.00) Ratio Glucose (74-99) mg/dL AST 43 H (14-35) U/L Creatine Kinase (55-170) U/L Total Protein (6.3-8.2) g/dL Globulin 3.7 H (1.6-3.3) g/dL Albumin/Globulin Ratio 1.05 L (1.60-3.17) Ratio Ur Specific [place] (1.001-1.035) Urine Protein (Negative) Urine Ketones (Negative) Urine Blood (Negative) Urine Bilirubin (Negative) Urine WBC (0-5) /hpf Amorphous Sediment (None) /hpf Hyaline Casts (0-2) /lpf Urine Mucus (None) /hpf Urine Opiates Screen (NotDetected) U Marijuana (THC) Screen (NotDetected) Thrombosis Risk Factor Assmnt - Choose All That Apply Any of the Below Risk Factors Present?: Yes Each Factor Represents 1 point: Age 41-60 years Other Risk Factors: No Other congenital or acquired thrombophilia - If yes, enter type in comment: No Thrombosis Risk Factor Assessment Total Risk Factor Score: 1 Thrombosis Risk Factor Assessment Level: Low Risk
[2024-06-09] MEDS: IPRATROPIUM-ALBUTEROL 3 ML NEB INHALATION SCH (03:10)
[2024-06-09] MEDS: ACETAMINOPHEN TAB 500 MG TAB PO PRN (08:47)
--- NOTE | 2024-06-09 12:18 | P.CNNES ---
History of Present Illness Consult date: 06/08/24 Requesting physician: Mahamed Acosta Reason for Consult: Altered mental status History of Present Illness: Patient is a 69-year-old left-handed male came to the hospital by ambulance yesterday at 1:12 PM for altered mental status. Patient is a poor historian, not able to provide much history. Patient states that he lives by himself, walks by himself, does not use any cane or any assistive device. He does admit to having headache and dizziness. He could not tell me how bad the headache is on a scale of 1-10. Patient has slow mentation. Patient states he has never smoked, does not drink alcohol. He had first said that he does drugs "little bit", but then he declined. On asking about marijuana, he admits to taking marijuana. Patient himself has no children. His main family is his brother Sotero. We will try to contact him to get collateral history. As per EMS flowsheet they were called for altered mental status. Patient was alert and oriented x 2-3 and has moments of delayed answering questions. Patient's pupils are equal round and reacting. Lungs were clear. Patient was found by [facility] and they had a difficult time arousing patient. EMS was able to wake up the patient but patient appeared lethargic. Patient has bottles of oxycodone and tramadol in bottles prescribed to him on the counter next to him. Patient smells of urine and feces. Patient was complaining of foot pain. Patient has neuropathy in his feet. Blood sugar was 190. Patient was placed on teletypesetter monitor and a twelve-lead EKG showed atrial fibrillation. While IV was inserted, patient became more alert and oriented during transport. Patient's brother has mentioned that he has been failure to thrive and is not taking care of himself. Patient is not eating or drinking well. Patient is still in the outfit the visiting nurse put on him a few days ago. Patient has history of alcoholism. Patient denies relapse. Patient's blood pressure was 148/84, pulse rate 64 respiration 18 saturation 98%. Blood tests showed normal WBC hemoglobin 11.5, platelets 255. PT PTT normal. CMP is normal, ammonia less than 9. Troponin negative, CK3 67. UA is essentially negative. Urine drug screen positive for opiates and marijuana. Blood alcohol level negative. EKG showed atrial fibrillation with rapid ventricular rate. CT head showed no acute intracranial process. Nonspecific white matter changes, likely secondary to chronic small vessel ischemic disease. CT head revealed no acute intracranial process, hydrocephalus or mass effect. I personally reviewed CT head and agree with the findings. Home medications include Celexa, Klonopin 0.5 mg 3 times daily, Woodruff, Eliquis 5 mg twice daily, Lipitor 80 mg, risperidone, Flomax, Protonix, lisinopril, gabapentin 20 mg 3 times daily and metoprolol. I spoke to patient's brother Sotero on the phone. He mentions that patient lives by himself, and sometimes gets lonely depressed and acts like this. He would be good for 6 months and then does not act right, real confused. He goes to the hospital and after 3 to 4 days of hospitalization, he comes back fine and COMES back negative. He believes that he has been doing good for a while. He has noticed that for last 1 week he has been having shuffling gait. He was feeling really weak. Usually he walks by himself does not use any assistive device. No previous history of strokes or seizures. Patient's brother admits that he has history of alcoholism, quit 2 years ago. No drug use. Patient has an apartment, but it is a "hot mess". They are looking for some placement. Patient's brother mentions that because he has not been eating and taking care of himself for last 1 week, he has lost a lot of weight and is more skinny. Review of Systems As mentioned in all pertinent positives and negatives in the HPI, otherwise noncontributory. Patient is amputated 3 lateral toes of the left foot. 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 History of Any Multi-Drug Resistant Organisms: MRSA, VRE Date of last positivie culture/infection: 01/21/22 MRSA & VRE MDRO Source:: RIGHT Foot Past Surgical History: Orthopedic Surgery Additional Past Surgical History / Comment(s): Amputation of the fourth and fifth toes on the right through the metatarsal heads, multiple I&D to nonhealing wounds on the R foot, repair of perforated ucler of stomach, EGD/colonoscopy, PICC lines in and out. Past Anesthesia/Blood Transfusion Reactions: Motion Sickness Additional Past Anesthesia/Blood Transfusion Reaction / Comment(s): claustrophobia Past Psychological History: ADD/ADHD, Anxiety, Depression Additional Psychological History / Comment(s): Tobacco smoker daily relates Smoking Status: Current every day smoker Past Alcohol Use History: None Reported Additional Past Alcohol Use History / Comment(s): Pt started smoking at age 26 smoked 1 ppd. Pt stated he used to drink 1/5 vodka per day but has not drank in past 6 months. Past Drug Use History: Marijuana Additional Drug Use History / Comment(s): Occasional marijuana - Past Family History Mother Family Medical History: CVA/TIA, Diabetes Mellitus, Vascular Disorder Additional Family Medical History / Comment(s): emotional problems. age 64 of cva Father Family Medical History: Hypertension Additional Family Medical History / Comment(s): age 38 from mva Medications and Allergies Home Medications Medication Instructions Recorded Confirmed Type Citalopram Hydrobromide [CeleXA] 20 mg PO DAILY 09/14/19 06/07/24 History clonazePAM [KlonoPIN] 0.5 mg PO TID 01/18/22 06/07/24 History HYDROcodone/APAP 10-325MG [Woodruff 1 tab PO QID 07/17/23 06/07/24 History 10-325] Apixaban [Eliquis] 5 mg PO BID #60 tab 07/21/23 06/07/24 Rx Atorvastatin [Lipitor] 80 mg PO HS #30 tab 07/21/23 06/07/24 Rx risperiDONE [RisperDAL] 1 mg PO DAILY #30 tab 07/21/23 06/07/24 Rx Nitroglycerin Sl Tabs [Nitrostat] 0.4 mg SL Q5M PRN 01/07/24 06/07/24 History Pantoprazole [Protonix] 40 mg PO DAILY 01/07/24 06/07/24 History Tamsulosin HCl [Flomax] 0.4 mg PO HS 01/07/24 06/07/24 History risperiDONE [RisperDAL] 2 mg PO HS 01/07/24 06/07/24 History lisinopriL [Zestril] 20 mg PO DAILY #30 tab 01/11/24 06/07/24 Rx Psyllium Husk 100% [Metamucil 6 gm PO BID #60 packet 03/09/24 06/07/24 Rx Packet] Gabapentin [Neurontin] 400 mg PO TID 06/07/24 06/07/24 History Metoprolol Tartrate [Lopressor] 25 mg PO BID 06/07/24 06/07/24 History Allergies Allergy/AdvReac Type Severity Reaction Status Date / Time Penicillins Allergy Dyspnea, Verified 06/07/24 19:05 HIVES, THROAT SWELLING Physical Examination - Vital Signs Vital Signs: Vital Signs Temp Pulse Pulse Resp BP Pulse Ox 06/08/24 20:00 98.7 F 06/08/24 19:20 100.1 F H 55 L 16 154/81 97 06/08/24 16:22 99.3 F 95 06/08/24 13:30 100 F H 79 19 167/80 97 06/08/24 08:00 98.8 F 78 20 121/87 97 06/08/24 06:56 85 127/111 98 06/08/24 04:00 68 16 119/80 98 06/08/24 02:00 77 20 135/100 97 06/08/24 01:02 86 18 152/81 99 Intake and Output 06/08/24 06/08/24 06/08/24 06:59 14:59 22:59 Intake Total 120 Output Total 250 300 Balance -250 -180 Intake: Oral 120 Output: Urine 250 300 Other: Voiding Method External Catheter External Catheter External Catheter # Bowel Movements 1 Weight 86.183 kg Patient is an elderly male, who is apparently poorly kept. He is somewhat thin built. Patient appears somewhat disheveled. He is alert and awake in no obvious distress. Patient knows his full name, and his age 69 years. He was able to tell me that he is left-handed. He could not tell current month or the year, city or state or the building. However he was very quick in responding to the president "[place]". Speech and language functions are normal. Patient can name and repeat very well. No aphasia or dysarthria. Attention, concentration is significantly impaired and fund of knowledge is very limited. On cranial nerve examination, pupils are equal, round and reacting to light, visual romano are full on confrontation, however he would not cooperate for checking for the neglect. Extraocular muscles are intact with no nystagmus. Face is symmetric, tongue protrudes to the midline. Palatal elevation and sensation normal, hearing and shoulder shrug normal, facial sensation normal. He has some chin tremors. On muscle strength testing, there is no pronator drift. His strength is symmetric, deltoid 4+5-, biceps 5, triceps 5, piece presser 5. Hip flexion (R/L) 3/4+, ankle dorsiflexion 5 bilaterally. Patient's hands are in a fist. Deep tendon reflexes are symmetric, somewhat diminished plantars are flat. Sensory to touch is equal with no neglect. Patient did not cooperate for testing for neglect. Cerebellar function showed no ataxia for [id number] testing. Patient is very bradykinetic. He did not cooperate for testing for lower extremities for ataxia. Tone is severely increased bilaterally and bulk of muscles normal. Patient has resting tremors of both hands, moderate on the left, mild on the right side Gait deferred.. On general examination, there is no carotid bruit or murmur, S1-S2 audible. Chest is clear on consultation. Abdomen is soft nontender. No organomegaly, bowel sounds present. Peripheral pulses are present. No peripheral edema. Patient has amputated 3 lateral toes of the left foot. He has a corn with some ulcer in the bottom of the right foot. He has some dried up feces on the bottom of the left foot. Results - Laboratory Findings CBC and BMP: 06/08/24 03:50 06/08/24 03:50 Abnormal Lab Findings: Abnormal Labs 06/07/24 06/07/24 06/08/24 15:22 15:22 00:30 RBC 3.87 L Hgb 11.5 L Hct 35.0 L Eosinophils # Anion Gap BUN 33 H BUN/Creatinine Ratio Glucose 119 H AST Creatine Kinase 367 H Total Protein 8.4 H Globulin Albumin/Globulin Ratio Ur Specific [place] 1.037 H Urine Protein 2+ H Urine Ketones 1+ H Urine Blood Trace H Urine Bilirubin 1+ H Urine WBC 6 H Amorphous Sediment Occasional H Hyaline Casts 16 H Urine Mucus Many H Urine Opiates Screen Detected H U Marijuana (THC) Screen Detected H 06/08/24 06/08/24 03:50 03:50 RBC 3.60 L Hgb 10.8 L Hct 32.5 L Eosinophils # 0.02 L Anion Gap 14.70 H BUN 30.8 H BUN/Creatinine Ratio 25.67 H Glucose AST 43 H Creatine Kinase Total Protein Globulin 3.7 H Albumin/Globulin Ratio 1.05 L Ur Specific [place] Urine Protein Urine Ketones Urine Blood Urine Bilirubin Urine WBC Amorphous Sediment Hyaline Casts Urine Mucus Urine Opiates Screen U Marijuana (THC) Screen Assessment and Plan Assessment: * Altered mental status, unclear cause. Rule out substance abuse, or withdrawal. 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 Patient on Risperdal, which could contribute to drug-induced parkinsonism. * Atrial fibrillation, on Eliquis * Hypertension * Hyperlipidemia * Peripheral neuropathy. * Wound in the bottom of right foot. 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 * Peripheral arterial disease * History of alcoholism. 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 Psychiatry has seen the patient, diagnosed with neurocognitive deficits secondary to systemic causes, most likely due to medications. They recommended to hold Risperdal, avoiding antipsychotics till patient is less tremulous and able to communicate. * Consider starting Cogentin to help with drug-induced parkinsonism. Patient's brother has mentioned that for last 1 week he has been walking with shuffling gait. Patient is on Risperdal, which could produce drug-induced parkinsonism. * Agree with checking EEG. * Patient has been started on aspirin 300 mg rectally, until able to take by mouth. * Resume Eliquis for atrial fibrillation. * CTA of head and neck revealed no significant stenosis. No report of any occlusion or aneurysm. * B12, folate, MMA, RPR, hemoglobin A1c. * DVT prophylaxis: Patient on Lovenox 40 mg subcu daily. * Discussed with patient's brother in detail. * Neurology will follow. Thank you for the consult.
[2024-06-09] MEDS: HYDROcodone/APAP 10-325MG 1 EACH TAB PO SCH (12:48)
--- NOTE | 2024-06-09 14:49 | P.PN ---
Progress Note - Text Progress Note Date: 06/09/24 Follow-up Mediation Review Chief Complaint: I am alright. Subjective: The patient had no specific complaints. He initiated no conversation. He was lying in bed and was getting ready to be fed lunch. He was alert and responded to the questions. He continues to be confused and exhibits memory impairment. Tremulousness is much improved. Some noted in the left hand. Leading questions: The patient denied Depression and Anxiety. Denied SI or HI. Denied any symptoms consistent with psychosis. Objective- MSE: Alert and attentive. Orientation times three. Dressed and Groomed: Appropriately. Pleasant and cooperative. Psychomotor Activity: Normal. Speech: Normal in tone, quality, and quantity. Mood: Ok. Affect: Appropriate to the mood. SI or HI: None. Perceptual disturbance: None noted. Thought Content: No paranoia or other delusional thinking noted. Thought Process: Normal. Cognition: Shows confusion, memory deficit, confabulations. Mild impairment of higher cognitive functions. Judgment and Insight: Poor. AIMS: Normal. Diagnosis: Neurocognitive deficit secondary to systemic causes, most likely due to drugs. 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 Plan and Recommendations: Continue holding Antipsychotics. The patient to be given Ativan 0.5 mg po prn q8hrs for severe agitation and anxiety. The nursing staff given to Ativan order.
--- NOTE | 2024-06-09 19:48 | P.PN ---
Progress Note - Text Progress Note Date: 06/09/24 Chief Complaint: Altered mental status 69-year-old patient of Dr. Mustafa. medical conditions include COPD, peripheral artery disease, GERD, hypertension, bipolar disorder., peripheral Neuropathy from alcoholism. heavy drinking up to 2018. smoker. brother Sotero - legal guardian. Patient has chronic foot wounds for which he follows at the wound care center. Patient does wear special shoes. Follows Dr. Akbar in the wound care center. Cardiac catheterization July 2023 showed nonobstructive disease Patient was seen by me this morning in the ER. Patient is lying in bed. Lethargic. Shaking all over. Including the face. Somewhat stiff in the arms.-Not able to give any history: As per the EMS report: Patient was found by the [facility] and that difficult time arousing the patient. EMS was able to wake the patient but patient is lethargic. Bottles of oxycodone tramadol and bottles prescribed to him on the counter next to him. Patient smelling of urine and feces. It did not look like he had a bath recently. Blood sugars 190. EKG showed atrial fibrillation. Patient is a bit more alert and oriented during transport. According to the patient's brother on the phone per the EMS patient been having failure to thrive and not able to take care of himself. Has not been eating or drinking well. He has not been dressing himself and was in the same out for the visiting nurse that put on on him a few days ago. He with his history of alcoho lism but has been no relapse. June 09: Disposition patient doing better. Improved tremors. Still has decreased rigidity. Some perspiration. The more awake. He did recognize me and said silverio Bruce. I went back over his initial symptoms of altered mentation's, delirium, perspiration, rigidity and tremor. [place] this well could be neuroleptic malignant syndrome. Risperdal had been held yesterday. I spoke to Dr. Alfaro from psychiatry. Patient to use Ativan as needed. Patient states she has not been drinking. But has been smoking. Patient eating well today. Active Medications Acetaminophen (Acetaminophen Tab 500 Mg Tab) 500 mg PO Q6HR PRN PRN Reason: Fever and/ or Pain Last Admin: 06/09/24 08:47 Dose: 500 mg Hydrocodone Bitart/Acetaminophen (Hydrocodone/Apap 10-325mg 1 Each Tab) 1 each PO QID [facility] Last Admin: 06/09/24 17:17 Dose: 1 each Albuterol/Ipratropium (Ipratropium-Albuterol 3 Ml Neb) 3 ml INHALATION RT-QID [facility] Last Admin: 06/09/24 19:03 Dose: 3 ml Aspirin (Aspirin 300 Mg Supp) 300 mg RECTAL DAILY [facility] Last Admin: 06/09/24 08:50 Dose: 300 mg Atorvastatin Calcium (Atorvastatin 80 Mg Tab) 80 mg PO [facility] Last Admin: 06/08/24 20:28 Dose: 80 mg Enoxaparin Sodium (Enoxaparin 40 Mg/0.4 Ml Syringe) 40 mg SQ DAILY [facility] Last Admin: 06/09/24 08:49 Dose: 40 mg Gabapentin (Gabapentin 400 Mg Cap) 400 mg PO TID [facility] Last Admin: 06/09/24 16:30 Dose: 400 mg Dextrose/Sodium Chloride (Dextrose 5%-1/2ns Iv Soln) 1,000 mls @ 130 mls/hr IV .Q7H42M [facility] Last Admin: 06/09/24 11:36 Dose: 130 mls/hr Lorazepam (Lorazepam 0.5 Mg Tab) 0.5 mg PO Q8HR PRN PRN Reason: Anxiety Metoprolol Tartrate (Metoprolol Tartrate 25 Mg Tab) 25 mg PO BID [facility] Last Admin: 06/09/24 08:49 Dose: 25 mg Naloxone HCl (Naloxone 0.4 Mg/Ml 1 Ml Vial) 0.2 mg IV Q2M PRN PRN Reason: Opioid Reversal Nitroglycerin (Nitroglycerin Sl Tabs 0.4 Mg Tab) 0.4 mg SUBLINGUAL Q5M PRN PRN Reason: Chest Pain Pantoprazole Sodium (Pantoprazole 40 Mg Tablet) 40 mg PO DAILY [facility] Last Admin: 06/09/24 08:47 Dose: 40 mg Tamsulosin HCl (Tamsulosin 0.4 Mg Cap.Er.24h) 0.4 mg PO [facility] Last Admin: 06/08/24 20:28 Dose: 0.4 mg Past medical history to include: COPD, PAD, foot wounds, GERD, hypertension, bipolar disorder, peripheral neuropathy from alcoholism Social history: Stopped drinking heavy alcohol in 2018. Long-standing smoker-currently unknown. Brother Sotero legal guardian. Lives alone. [facility] Physical examination: VITAL SIGNS: 99.7, 84, 16, 145 x 76, 96% room air GENERAL: Sitting up in bed, awake. Answering questions. Mild tremor. Decreased rigidity. Some perspiration.. EYES: Pupils equal. Conjunctiva normal. HEENT: External appearance of nose and ears normal, oral cavity decreased hygiene NECK: JVD not raised; masses not palpable. HEART: First and second heart sounds are normal; no edema. LUNGS: Respiratory rate increased; decreased breath sounds. Some wheezing ABDOMEN: Soft, nontender, liver spleen not palpable, no masses palpable. PSYCH: Answering questions more appropriately. Bit anxious. MUSCULOSKELETAL:No Clubbing/cyanosis;muscles-grossly intact. Amputation of the fourth and fifth toe on the left. Dry wound on the plantar surface of both feet NEUROLOGICAL: Cranial nerves grossly intact; no facial asymmetry, improved tremors. Much improved rigidity. INVESTIGATIONS, reviewed in the clinical context: Treponema pallidum antibody: Nonreactive. B12 373. Folate 8.5 June 08, 2024: White count 8.5 hemoglobin 10.8 platelets 204 sodium 144 potassium 3.5 BUN 30.8 creatinine 1.2 ionized calcium 4.7 phosphorus 3.5 UA positive for protein 2+ squamous epithelial cells. Urine drug screen positive for opiates, marijuana serum alcohol less than 10 EKG tracing personally reviewed by me-sinus rhythm. PVC. Nonspecific ST-T wave changes CT brain: No acute reported CT angiogram: No significant stenosis Previous testing Cardiac catheterization: July 2023 minimal nonobstructive disease Assessment and plan: -Acute metabolic encephalopathy/delirium.: Possibility of neuroleptic malignant syndrome.: Clinically much better. Could also be drug-induced parkinsonism-Per neurology [Patient reported by his brother to be not taking care of himself. It was in the same outfit put by visiting nurses some few days ago. Patient had bottles of Ultram and oxycodone next to him. Patient may well have taken a bit of excessive of these. Patient also listed to have Risperdal, Klonopin, gabapentin. It is possible also patient could be withdrawing from the same. Patient is rather tremulous. Not able to answer questions] Risperdal and Klonopin have been discontinued. Gabapentin has been continued. Psychiatry and neurology following. -Bilateral foot , pressure ulcer wounds especially in the plantar aspect deep in a patient with known peripheral artery disease and peripheral neuropathy, underlying Charcot foot: Changes felt to be chronic. Follows at the wound care center with Dr. Akbar. Wound care team consulted -COPD in a current smoker DuoNeb 4 times daily -Chronic nicotine dependence cigarette smoker Nicotine patch -Paroxysmal atrial fibrillation,-sinus rhythm Telemetry. Hold Eliquis for now. -Cognitive impairment to be further assessed when patient more fully awake - chronic kidney disease stage 3 from nephrosclerosis creatinine was 1.13 in July 2023 -GERD PPI -Essential Hypertension: Lopressor. -Bipolar disorder, psychosis: History of the same. Currently psychiatry following. -Painful Peripheral neuropathy secondary to history of alcoholism: Controlled Neurontin -Charcot foot -Full code -Legal guardian: Daquan Eating well. Ativan as needed. Risperdal Klonopin have been discontinued. 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 History of Any Multi-Drug Resistant Organisms: MRSA, VRE Date of last positivie culture/infection: 01/21/22 MRSA & VRE MDRO Source:: RIGHT Foot Past Surgical History: Orthopedic Surgery Additional Past Surgical History / Comment(s): Amputation of the fourth and fifth toes on the right through the metatarsal heads, multiple I&D to nonhealing wounds on the R foot, repair of perforated ucler of stomach, EGD/colonoscopy, PICC lines in and out. Past Anesthesia/Blood Transfusion Reactions: Motion Sickness Additional Past Anesthesia/Blood Transfusion Reaction / Comment(s): claustrophobia Past Psychological History: ADD/ADHD, Anxiety, Depression Additional Psychological History / Comment(s): Tobacco smoker daily relates Smoking Status: Current every day smoker Past Alcohol Use History: None Reported Additional Past Alcohol Use History / Comment(s): Pt started smoking at age 26 smoked 1 ppd. Pt stated he used to drink 1/5 vodka per day but has not drank in past 6 months. Past Drug Use History: Marijuana Additional Drug Use History / Comment(s): Occasional marijuana
[2024-06-09] MEDS: LORazepam 0.5 MG TAB PO PRN (21:00)
--- NOTE | 2024-06-09 21:42 | EEG ---
ELECTROENCEPHALOGRAM REPORT PREAMBLE: This is a 69-year-old male who was brought to the hospital for altered mental status. The patient has not been eating and drinking for some time. EEG FINDINGS: This is a 21-channel digital EEG recorded with video component, utilizing 10/20 international system with referential and bipolar montages. Background consists of well developed, well regulated, moderate to high amplitude activity in 7 hertz theta, seen in bihemispheric region. Background is posterior dominant, and seems to be very minimally reactive to eye opening or closing. Photic driving response was not seen. Some intermittent myogenic artifact was seen during this study. Different stages of sleep were not seen. No focal or generalized epileptiform activity was seen. IMPRESSION: This is an abnormal EEG due to background slowing, suggestive of mild encephalopathy. No focal, lateralized, or epileptiform activity was seen. VALENTINE / LAKEISHA: [id number] /
[2024-06-10 05:42] LABS: Basophils % (A) 0 %; Eosinophils # (A) 0.2 k/uL (0-0.7); Eosinophils % (A) 2 %; HCT 33.6 % (39.0-53.0); HGB 11.1 gm/dL (13.0-17.5); Lymphocytes # (A) 2.3 k/uL (1.0-4.8); Lymphocytes % (A) 21 %; MCH 29.8 pg (25.0-35.0); MCHC 33.2 g/dL (31.0-37.0); MCV 89.8 fL (80.0-100.0); Mean Platelet Volume 7.4; Monocytes # (A) 0.6 k/uL (0-1.0); Monocytes % (A) 5 %; Neutrophils % (A) 71 %; Platelet Count 222 k/uL (150-450); RBC 3.74 m/uL (4.30-5.90); RDW 13.5 % (11.5-15.5); WBC 11.3 k/uL (3.8-10.6)
[2024-06-10 05:52] LABS: ALT 14 U/L (4-49); AST 34 U/L (17-59); African American GFR (CKD) >90 (>60 ml/min/1.73 sqM); Albumin 3.3 g/dL (3.5-5.0); Albumin/Globulin Ratio 1.1; Alkaline Phosphatase 63 U/L (38-126); Anion Gap 5 mmol/L; Blood Urea Nitrogen 25 mg/dL (9-20); Calcium 8.8 mg/dL (8.4-10.2); Carbon Dioxide 24 mmol/L (22-30); Chloride 106 mmol/L (98-107); Globulin 3.1 g/dL; Glucose 110 mg/dL (74-99); Non-African American GFR(CKD) 80 (>60 ml/min/1.73 sqM); Potassium 3.5 mmol/L (3.5-5.1); Sodium 135 mmol/L (137-145); Total Bilirubin 0.9 mg/dL (0.2-1.3); Total Protein 6.4 g/dL (6.3-8.2)
[2024-06-10 08:14] LABS: Glucose,Whole Blood 123 mg/dL (70-110)
[2024-06-10] MEDS: ASPIRIN 81 MG PO SCH (08:17)
--- NOTE | 2024-06-10 09:02 | P.PN ---
Subjective Progress Note Date: 06/09/24 Patient was seen for a follow-up. Patient is laying in the bed, much more alert and awake. Patient denies any history of depression. His tremors have much improved. No new concerns. Objective - Vital Signs Vital signs: Vital Signs Temp 98.4 F 06/09/24 12:47 Pulse 83 06/09/24 15:23 Resp 16 06/09/24 12:47 BP 145/76 06/09/24 12:47 Pulse Ox 96 06/09/24 12:47 FiO2 Intake & Output 06/08/24 06/09/24 06/09/24 18:59 06:59 18:59 Intake Total 120 Output Total 300 Balance -180 Weight 86.183 kg Intake: Oral 120 Output: Urine 300 Other: Voiding Method External Catheter External Catheter External Catheter # Voids 1 # Bowel Movements 1 - Exam Mentation has much improved. His speech is much more clear, and louder volume. Tone is mildly increased, much better than yesterday. He is not as bradykinetic. - Labs CBC & Chem 7: 06/10/24 05:10 06/10/24 05:10 Assessment and Plan Assessment: * Altered mental status, unclear cause. Rule out substance abuse, or withdrawal. 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 Patient on Risperdal, which could contribute to drug-induced parkinsonism. * Atrial fibrillation, on Eliquis * Hypertension * Hyperlipidemia * Peripheral neuropathy. * Wound in the bottom of right foot. 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 * Peripheral arterial disease * History of alcoholism. 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 Psychiatry has seen the patient, diagnosed with neurocognitive deficits secondary to systemic causes, most likely due to medications. They recommended to hold Risperdal, avoiding antipsychotics till patient is less tremulous and able to communicate. 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 * Consider starting Cogentin to help with drug-induced parkinsonism. Patient's parkinsonism has improved over last 24 hours. * EEG was abnormal due to background slowing, suggestive of mild encephalopathy. No focal, lateralized or epileptiform activity was seen. * Patient on aspirin 81 mg. * Resume Eliquis for atrial fibrillation. * CTA of head and neck revealed no significant stenosis. No report of any occlusion or aneurysm. * B12 373, folate 8.5, RPR nonreactive, hemoglobin A1c 5.8. MMA pending. Start B12, folate for borderline levels. * Patient off antibiotics. * DVT prophylaxis: Patient on Lovenox 40 mg subcu daily.
--- NOTE | 2024-06-10 11:42 | P.CONS ---
History of Present Illness - Reason for Consult Consult date: 06/10/24 wound care - History of Present Illness This is a 69-year-old patient known to the wound care center being seen for open ulcerations to bilateral Plantar feet. Patient was discharged from the wound care center a few months ago. At this time patient has no open ulcerations. However he states he does not wear his offloading shoes. Has been walking around with no shoes on. Patient does have significant amount of callus noted however there is no drainage or open ulcerations Review Of Systems: Constitutional: No fever, no chills, no night sweats. No weight change. No weakness, fatigue or lethargy. No daytime sleepiness. Integumentary:reports wounds, no lesions. No rash or pruritus. No unusual bruising. No change in hair or nails. Physical exam: General Appearance: Alert, cooperative, no distress, appears stated age. Skin: See HPI all other Skin color, texture, tugor normal, no rashes or lesions. Neurologic: Alert oriented x3 Assessment: 1. Diabetes with neuropathy Plan: 1. No dressings warranted at this time. Discussed with patient the importance of wearing his offloading shoes. Patient verbalized understanding. Thank you for the consultation any questions please contact the wound care center DNP note has been reviewed and discussed with Dr. Baker and the impression and plan of care has been directed as dictated. 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 Past Anesthesia/Blood Transfusion Reactions: Motion Sickness Additional Past Anesthesia/Blood Transfusion Reaction / Comm: claustrophobia Past Psychological History: ADD/ADHD, Anxiety, Depression Additional Psychological History / Comment(s): Tobacco smoker daily relates Smoking Status: Current every day smoker Past Alcohol Use History: None Reported Additional Past Alcohol Use History / Comment(s): Pt started smoking at age 26 smoked 1 ppd. Pt stated he used to drink 1/5 vodka per day but has not drank in past 6 months. Past Drug Use History: Marijuana Additional Drug Use History / Comment(s): Occasional marijuana - Past Family History Mother Family Medical History: CVA/TIA, Diabetes Mellitus, Vascular Disorder Additional Family Medical History / Comment(s): emotional problems. age 64 of cva Father Family Medical History: Hypertension Additional Family Medical History / Comment(s): age 38 from mva Medications and Allergies Home Medications Medication Instructions Recorded Confirmed Type Citalopram Hydrobromide [CeleXA] 20 mg PO DAILY 09/14/19 06/07/24 History clonazePAM [KlonoPIN] 0.5 mg PO TID 01/18/22 06/07/24 History HYDROcodone/APAP 10-325MG [[place] 1 tab PO QID 07/17/23 06/07/24 History 10-325] Apixaban [Eliquis] 5 mg PO BID #60 tab 07/21/23 06/07/24 Rx Atorvastatin [Lipitor] 80 mg PO HS #30 tab 07/21/23 06/07/24 Rx risperiDONE [RisperDAL] 1 mg PO DAILY #30 tab 07/21/23 06/07/24 Rx Nitroglycerin Sl Tabs [Nitrostat] 0.4 mg SL Q5M PRN 01/07/24 06/07/24 History Pantoprazole [Protonix] 40 mg PO DAILY 01/07/24 06/07/24 History Tamsulosin HCl [Flomax] 0.4 mg PO HS 01/07/24 06/07/24 History risperiDONE [RisperDAL] 2 mg PO HS 01/07/24 06/07/24 History lisinopriL [Zestril] 20 mg PO DAILY #30 tab 01/11/24 06/07/24 Rx Psyllium Husk 100% [Metamucil 6 gm PO BID #60 packet 03/09/24 06/07/24 Rx Packet] Gabapentin [Neurontin] 400 mg PO TID 06/07/24 06/07/24 History Metoprolol Tartrate [Lopressor] 25 mg PO BID 06/07/24 06/07/24 History Allergies Allergy/AdvReac Type Severity Reaction Status Date / Time Penicillins Allergy Dyspnea, Verified 06/07/24 19:05 HIVES, THROAT SWELLING Physical Exam Vitals: Vital Signs Temp Pulse Pulse Resp BP Pulse Ox 06/10/24 08:44 86 06/10/24 08:36 85 06/10/24 08:00 98.3 F 52 L 18 143/110 97 06/10/24 02:00 98.0 F 56 L 14 153/71 96 06/09/24 19:45 98.3 F 50 L 14 165/80 98 06/09/24 19:10 88 06/09/24 19:03 83 06/09/24 15:23 83 06/09/24 15:13 80 06/09/24 12:47 98.4 F 84 16 145/76 96 Intake and Output 06/09/24 06/10/24 06/10/24 22:59 06:59 14:59 Intake Total 120 Balance 120 Intake: Oral 120 Other: Voiding Method Urinal Urinal Diaper Diaper Incontinent Incontinent # Voids 2 Results CBC & Chem 7: 06/10/24 05:10 06/10/24 05:10 Labs: Abnormal Lab Results - Last 24 Hours (Table) 06/07/24 06/10/24 06/10/24 Range/Units 23:39 05:10 05:10 WBC 11.3 H (3.8-10.6) k/uL RBC 3.74 L (4.30-5.90) m/uL Hgb 11.1 L (13.0-17.5) gm/dL Hct 33.6 L (39.0-53.0) % Neutrophils # 8.0 H (1.3-7.7) k/uL Sodium 135 L (137-145) mmol/L BUN 25 H (9-20) mg/dL Glucose 110 H (74-99) mg/dL POC Glucose (mg/dL) 123 H (70-110) mg/dL Albumin 3.3 L (3.5-5.0) g/dL Assessment and Plan (1) Type 2 diabetes mellitus with other diabetic arthropathy Current Visit: Yes Status: Acute Code(s): E11.618 - TYPE 2 DIABETES MELLITUS WITH OTHER DIABETIC ARTHROPATHY SNOMED Code(s): 514431842
[2024-06-10] MEDS: APIXABAN 5 MG TAB PO SCH (12:34)
[2024-06-10] MEDS: NICOTINE 21MG/24HR PATCH TRANSDERM SCH (14:55)
--- NOTE | 2024-06-10 17:48 | P.PN ---
Progress Note - Text Progress Note Date: 06/10/24 Chief Complaint: Altered mental status 69-year-old patient of Dr. Mustafa. medical conditions include COPD, peripheral artery disease, GERD, hypertension, bipolar disorder., peripheral Neuropathy from alcoholism. heavy drinking up to 2018. smoker. brother Sotero - legal guardian. Patient has chronic foot wounds for which he follows at the wound care center. Patient does wear special shoes. Follows Dr. Akbar in the wound care center. Cardiac catheterization July 2023 showed nonobstructive disease Patient was seen by me this morning in the ER. Patient is lying in bed. Lethargic. Shaking all over. Including the face. Somewhat stiff in the arms.-Not able to give any history: As per the EMS report: Patient was found by the [facility] and that difficult time arousing the patient. EMS was able to wake the patient but patient is lethargic. Bottles of oxycodone tramadol and bottles prescribed to him on the counter next to him. Patient smelling of urine and feces. It did not look like he had a bath recently. Blood sugars 190. EKG showed atrial fibrillation. Patient is a bit more alert and oriented during transport. According to the patient's brother on the phone per the EMS patient been having failure to thrive and not able to take care of himself. Has not been eating or drinking well. He has not been dressing himself and was in the same out for the visiting nurse that put on on him a few days ago. He with his history of alcoho lism but has been no relapse. June 09: Disposition patient doing better. Improved tremors. Still has decreased rigidity. Some perspiration. The more awake. He did recognize me and said silverio Bruce. I went back over his initial symptoms of altered mentation's, delirium, perspiration, rigidity and tremor. [place] this well could be neuroleptic malignant syndrome. Risperdal had been held yesterday. I spoke to Dr. Alfaro from psychiatry. Patient to use Ativan as needed. Patient states she has not been drinking. But has been smoking. Patient eating well today. June 10: Reclining bed comfortable. Mild tremors. Seen by PT OT. Will qualify for rehab. Spoke to vocational case manager. Patient been a supervised setting. Hence Eliquis will be resumed. Patient remains off Risperdal. Home dose of [place] resumed. Patient has chronic pain. Also continue Neurontin. Patient's wound on the plantar surface are dry. Was discharged from Dr. Akbar/wound care center. Active Medications Acetaminophen (Acetaminophen Tab 500 Mg Tab) 500 mg PO Q6HR PRN PRN Reason: Fever and/ or Pain Last Admin: 06/09/24 21:01 Dose: 500 mg Hydrocodone Bitart/Acetaminophen (Hydrocodone/Apap 10-325mg 1 Each Tab) 1 each PO QID [facility] Last Admin: 06/10/24 12:34 Dose: 1 each Albuterol/Ipratropium (Ipratropium-Albuterol 3 Ml Neb) 3 ml INHALATION RT-QID [facility] Last Admin: 06/10/24 15:52 Dose: 3 ml Apixaban (Apixaban 5 Mg Tab) 5 mg PO BID [facility]; Protocol Last Admin: 06/10/24 12:34 Dose: 5 mg Aspirin (Aspirin 81 Mg) 81 mg PO DAILY [facility] Last Admin: 06/10/24 08:17 Dose: Not Given Atorvastatin Calcium (Atorvastatin 80 Mg Tab) 80 mg PO HS [facility] Last Admin: 06/09/24 21:00 Dose: 80 mg Gabapentin (Gabapentin 400 Mg Cap) 400 mg PO TID [facility] Last Admin: 06/10/24 16:45 Dose: 400 mg Dextrose/Sodium Chloride (Dextrose 5%-1/2ns Iv Soln) 1,000 mls @ 50 mls/hr IV .Q20H [facility] Last Admin: 06/10/24 12:35 Dose: 50 mls/hr Lorazepam (Lorazepam 0.5 Mg Tab) 0.5 mg PO Q8HR PRN PRN Reason: Anxiety Last Admin: 06/10/24 14:59 Dose: 0.5 mg Metoprolol Tartrate (Metoprolol Tartrate 25 Mg Tab) 25 mg PO BID [facility] Last Admin: 06/10/24 08:15 Dose: 25 mg Naloxone HCl (Naloxone 0.4 Mg/Ml 1 Ml Vial) 0.2 mg IV Q2M PRN PRN Reason: Opioid Reversal Nicotine (Nicotine 21mg/24hr Patch) 1 patch TRANSDERM DAILY [facility] Last Admin: 06/10/24 14:55 Dose: 1 patch Nitroglycerin (Nitroglycerin Sl Tabs 0.4 Mg Tab) 0.4 mg SUBLINGUAL Q5M PRN PRN Reason: Chest Pain Pantoprazole Sodium (Pantoprazole 40 Mg Tablet) 40 mg PO DAILY [facility] Last Admin: 06/10/24 08:15 Dose: 40 mg Tamsulosin HCl (Tamsulosin 0.4 Mg Cap.Er.24h) 0.4 mg PO HS [facility] Last Admin: 06/09/24 21:00 Dose: 0.4 mg Past medical history to include: COPD, PAD, foot wounds, GERD, hypertension, bipolar disorder, peripheral neuropathy from alcoholism Social history: Stopped drinking heavy alcohol in 2018. Long-standing smoker-currently unknown. Brother Sotero legal guardian. Lives alone. [facility] Whe[facility] Physical examination: VITAL SIGNS: 98.2, 79, 17, 152/85, 98% room air GENERAL: Sitting up in bed, awake. Answering questions. Mild tremor. Improvement in rigidity.. Mild perspiration.. EYES: Pupils equal. Conjunctiva normal. HEENT: External appearance of nose and ears normal, oral cavity decreased hygiene NECK: JVD not raised; masses not palpable. HEART: First and second heart sounds are normal; no edema. LUNGS: Respiratory rate increased; decreased breath sounds. Some wheezing ABDOMEN: Soft, nontender, liver spleen not palpable, no masses palpable. PSYCH: Answering questions more appropriately. Slight anxious 3.. MUSCULOSKELETAL:No Clubbing/cyanosis;muscles-grossly intact. Amputation of the fourth and fifth toe on the left. Dry wound on the plantar surface of both feet NEUROLOGICAL: Cranial nerves grossly intact; no facial asymmetry, some tremors. improved rigidity. INVESTIGATIONS, reviewed in the clinical context: June 10: White count 1.3 hemoglobin 11.1 potassium 3.5 BUN 25 creatinine 0.97 Treponema pallidum antibody: Nonreactive. B12 373. Folate 8.5 June 08, 2024: White count 8.5 hemoglobin 10.8 platelets 204 sodium 144 potassium 3.5 BUN 30.8 creatinine 1.2 ionized calcium 4.7 phosphorus 3.5 UA positive for protein 2+ squamous epithelial cells. Urine drug screen positive for opiates, marijuana serum alcohol less than 10 EKG tracing personally reviewed by me-sinus rhythm. PVC. Nonspecific ST-T wave changes CT brain: No acute reported CT angiogram: No significant stenosis Previous testing Cardiac catheterization: July 2023 minimal nonobstructive disease Assessment and plan: -Acute metabolic encephalopathy/delirium.: Possibility of neuroleptic malignant syndrome., Drug-induced parkinsonism-Per neurology: Clinically much better [Patient reported by his brother to be not taking care of himself. It was in the same outfit put by visiting nurses some few days ago. Patient had bottles of Ultram and oxycodone next to him. Patient may well have taken a bit of excessive of these. Patient also listed to have Risperdal, Klonopin, gabapentin. It is possible also patient could be withdrawing from the same. Patient is rather tremulous. Not able to answer questions] Risperdal and Klonopin have been discontinued. Gabapentin has been continued. Psychiatry and neurology following. -Bilateral foot , pressure ulcer wounds especially in the plantar aspect deep in a patient with known peripheral artery disease and peripheral neuropathy, underlying Charcot foot: Changes felt to be chronic. Spoke to Marga from wound care center. Wounds are dry. He has been discharged from there. Follow-up as needed. -COPD in a current smoker DuoNeb 4 times daily -Chronic nicotine dependence cigarette smoker Nicotine patch -Paroxysmal atrial fibrillation,-sinus rhythm Telemetry. Increase Eliquis patient is going to a supervised setting/ECF -Cognitive impairment to be further assessed when patient more fully awake - chronic kidney disease stage 3 from nephrosclerosis creatinine was 1.13 in July 2023 -GERD PPI -Essential Hypertension: Lopressor. -Bipolar disorder, psychosis: History of the same. Currently psychiatry following. -Painful Peripheral neuropathy secondary to history of alcoholism: Controlled Neurontin -Charcot foot -Full code -Legal guardian: Daquan Continue current medications. Probable discharge to [facility] tomorrow. Will get final input from neurology. 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 History of Any Multi-Drug Resistant Organisms: MRSA, VRE Date of last positivie culture/infection: 01/21/22 MRSA & VRE MDRO Source:: RIGHT Foot Past Surgical History: Orthopedic Surgery Additional Past Surgical History / Comment(s): Amputation of the fourth and fifth toes on the right through the metatarsal heads, multiple I&D to nonhealing wounds on the R foot, repair of perforated ucler of stomach, EGD/colonoscopy, PICC lines in and out. Past Anesthesia/Blood Transfusion Reactions: Motion Sickness Additional Past Anesthesia/Blood Transfusion Reaction / Comment(s): claustrophobia Past Psychological History: ADD/ADHD, Anxiety, Depression Additional Psychological History / Comment(s): Tobacco smoker daily relates Smoking Status: Current every day smoker Past Alcohol Use History: None Reported Additional Past Alcohol Use History / Comment(s): Pt started smoking at age 26 smoked 1 ppd. Pt stated he used to drink 1/5 vodka per day but has not drank in past 6 months. Past Drug Use History: Marijuana Additional Drug Use History / Comment(s): Occasional marijuana
[2024-06-11 08:57] VITALS: RESP 18
--- NOTE | 2024-06-11 14:21 | P.DS ---
Providers Date of admission: 06/08/24 10:15 Expected date of discharge: 06/11/24 Attending physician: Damien Bruce Consults: 06/07/24 19:23 Consult Physician Routine Consulting Provider: Demetrio Ochoa Consult Reason/Comments: ams Do you want consulting provider notified?: Yes 06/07/24 20:46 Consult Physician Routine Consulting Provider: Violetta Croft Consult Reason/Comments: ams Do you want consulting provider notified?: Yes Primary care physician: Remington Mustafa [facility] Course: Chief Complaint: Altered mental status 69-year-old patient of Dr. Mustafa. medical conditions include COPD, peripheral artery disease, GERD, hypertension, bipolar disorder., peripheral Neuropathy from alcoholism. heavy drinking up to 2018. smoker. brother Sotero - legal guardian. Patient has chronic foot wounds for which he follows at the wound care center. Patient does wear special shoes. Follows Dr. Akbar in the wound care center. Cardiac catheterization July 2023 showed nonobstructive disease Patient was seen by me this morning in the ER. Patient is lying in bed. Lethargic. Shaking all over. Including the face. Somewhat stiff in the arms.-Not able to give any history: As per the EMS report: Patient was found by the [facility] and that difficult time arousing the patient. EMS was able to wake the patient but patient is lethargic. Bottles of oxycodone tramadol and bottles prescribed to him on the counter next to him. Patient smelling of urine and feces. It did not look like he had a bath recently. Blood sugars 190. EKG showed atrial fibrillation. Patient is a bit more alert and oriented during transport. According to the patient's brother on the phone per the EMS patient been having failure to thrive and not able to take care of himself. Has not been eating or drinking well. He has not been dressing himself and was in the same out for the visiting nurse that put on on him a few days ago. He with his history of al coholism but has been no relapse. June 09: Disposition patient doing better. Improved tremors. Still has decreased rigidity. Some perspiration. The more awake. He did recognize me and said silverio Bruce. I went back over his initial symptoms of altered mentation's, delirium, perspiration, rigidity and tremor. May this well could be neuroleptic malignant syndrome. Risperdal had been held yesterday. I spoke to Dr. Alfaro from psychiatry. Patient to use Ativan as needed. Patient states she has not been drinking. But has been smoking. Patient eating well today. June 10: Reclining bed comfortable. Mild tremors. Seen by PT OT. Will qualify for rehab. Spoke to case planner. Patient been a supervised setting. Hence Eliquis will be resumed. Patient remains off Risperdal. Home dose of Buckeye resumed. Patient has chronic pain. Also continue Neurontin. Patient's wound on the plantar surface are dry. Was discharged from Dr. Akbar/wound care center. June 11: Up in recliner. Comfortable. Eating well. Mild tremors. Spoke to social security assessor Rupinder. Has been accepted at [facility]. Had some tachycardia today. EKG reviewed. Shows wandering atrial pacemaker. 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 Patient follow-up outpatient with Dr. Maria Alejandra Ramirez neurology. Parkinsonism possible drug-induced. Discussion and discharge planning more than 35 minutes Past medical history to include: COPD, PAD, foot wounds, GERD, hypertension, bipolar disorder, peripheral neuropathy from alcoholism Social history: Stopped drinking heavy alcohol in 2018. Long-standing smoker-currently unknown. Brother Sotero legal guardian. Lives alone. Meals on Wheels Physical examination: VITAL SIGNS: 99, 84, 15, 150/98, 97% room air GENERAL: Up in recliner. Communicating well. Some tremors.. EYES: Pupils equal. Conjunctiva normal. HEENT: External appearance of nose and ears normal, oral cavity decreased hygiene NECK: JVD not raised; masses not palpable. HEART: First and second heart sounds are normal; no edema. LUNGS: Respiratory rate increased; decreased breath sounds. Some wheezing ABDOMEN: Soft, nontender, liver spleen not palpable, no masses palpable. PSYCH: Answering questions more appropriately. Slight anxious 3.. MUSCULOSKELETAL:No Clubbing/cyanosis;muscles-grossly intact. Amputation of the fourth and fifth toe on the left. Dry wound on the plantar surface of both feet NEUROLOGICAL: Cranial nerves grossly intact; no facial asymmetry, some tremors. Mild rigidity. INVESTIGATIONS, reviewed in the clinical context: EKG [June 11] Wandering atrial pacemaker June 10: White count 1.3 hemoglobin 11.1 potassium 3.5 BUN 25 creatinine 0.97 Treponema pallidum antibody: Nonreactive. B12 373. Folate 8.5 June 08, 2024: White count 8.5 hemoglobin 10.8 platelets 204 sodium 144 potassium 3.5 BUN 30.8 creatinine 1.2 ionized calcium 4.7 phosphorus 3.5 UA positive for protein 2+ squamous epithelial cells. Urine drug screen positive for opiates, marijuana serum alcohol less than 10 EKG tracing personally reviewed by me-sinus rhythm. PVC. Nonspecific ST-T wave changes CT brain: No acute reported CT angiogram: No significant stenosis Previous testing Cardiac catheterization: July 2023 minimal nonobstructive disease Assessment and plan: -Acute metabolic encephalopathy/delirium.: Possible, Drug-induced parki nsonism-Per neurology: Clinically much better Risperdal and Klonopin have been discontinued. Gabapentin has been continued. Psychiatry and neurology following. Follow-up with Dr. Luke Ramirez neurology outpatient. Consider Cogentin depending on clinical course -Bilateral foot , pressure ulcer wounds especially in the plantar aspect deep in a patient with known peripheral artery disease and peripheral neuropathy, underlying Charcot foot: Changes felt to be chronic. Spoke to Marga from wound care center. Wounds are dry. He has been discharged from there. Follow-up as needed. -COPD in a current smoker DuoNeb twice daily -Chronic nicotine dependence cigarette smoker Nicotine patch 21 -Paroxysmal atrial fibrillation,-sinus rhythm Telemetry. Increase Eliquis patient is going to a supervised setting/ECF -Wandering atrial pacemaker -Cognitive impairment to be further assessed when patient more fully awake - chronic kidney disease stage 3 from nephrosclerosis creatinine was 1.13 in July 2023 -GERD PPI -Essential Hypertension: Lopressor. -Bipolar disorder, psychosis: History of the same. Currently psychiatry following. -Painful Peripheral neuropathy secondary to history of alcoholism: Controlled Neurontin -Charcot foot -Full code -Legal guardian: Daquan Disposition: Rehab at [facility] Past Medical History Past Medical History: COPD, GERD/Reflux, Hyperlipidemia, Hypertension, Pneumonia, Skin Disorder, Vascular Disorder Additional Past Medical History / Comment(s): ETOH abuse, DT's, pancreatitis, chronic pain, PVD, PAD, neuropathy bilateral legs/feet and hands, past nonhealing wounds bilateral feet-past wound care center, 2006 osteomylitis L foot, chronic pain bilateral feet/legs and upper back-pt states he had thoracic vertebrae injury in past, peptic ulcer with surgery, psoriasis, sinus problems, past L clavicular fracture, acute renal failure, electrolyte disturbance. History of Any Multi-Drug Resistant Organisms: MRSA, VRE Date of last positivie culture/infection: 01/21/22 MRSA & VRE MDRO Source:: RIGHT Foot Past Surgical History: Orthopedic Surgery Additional Past Surgical History / Comment(s): Amputation of the fourth and fifth toes on the right through the metatarsal heads, multiple I&D to nonhealing wounds on the R foot, repair of perforated ucler of stomach, EGD/colonoscopy, PICC lines in and out. Past Anesthesia/Blood Transfusion Reactions: Motion Sickness Additional Past Anesthesia/Blood Transfusion Reaction / Comment(s): claustrophobia Past Psychological History: ADD/ADHD, Anxiety, Depression Additional Psychological History / Comment(s): Tobacco smoker daily relates Smoking Status: Current every day smoker Past Alcohol Use History: None Reported Additional Past Alcohol Use History / Comment(s): Pt started smoking at age 26 smoked 1 ppd. Pt stated he used to drink 1/5 vodka per day but has not drank in past 6 months. Past Drug Use History: Marijuana Additional Drug Use History / Comment(s): Occasional marijuana Plan - Discharge Summary New Discharge Prescriptions: New Aspirin 81 mg PO DAILY tab LORazepam [Ativan] 0.5 mg PO Q8HR PRN #9 tab PRN Reason: Anxiety Ipratropium-Albuterol Nebulize [Duoneb 0.5 mg-3 mg/3 ml Soln] 3 ml INHALATION BID each Nicotine 21Mg/24Hr Patch [Habitrol] 1 patch TRANSDERM DAILY patch Acetaminophen Tab [Tylenol] 500 mg PO Q6HR PRN tab PRN Reason: Fever And/ Or Pain Continue Tamsulosin HCl [Flomax] 0.4 mg PO HS Nitroglycerin Sl Tabs [Nitrostat] 0.4 mg SL Q5M PRN PRN Reason: Chest Pain Psyllium Husk 100% [Metamucil Packet] 6 gm PO BID #60 packet Apixaban [Eliquis] 5 mg PO BID #60 tab Atorvastatin [Lipitor] 80 mg PO HS #30 tab Pantoprazole [Protonix] 40 mg PO DAILY Gabapentin [Neurontin] 400 mg PO TID Metoprolol Tartrate [Lopressor] 25 mg PO BID Changed lisinopriL [Zestril] 20 mg PO HS #30 tab HYDROcodone/APAP 10-325MG [Buckeye 10-325] 1 tab PO QID PRN #12 tab PRN Reason: Pain Discontinued Citalopram Hydrobromide [CeleXA] 20 mg PO DAILY clonazePAM [KlonoPIN] 0.5 mg PO TID risperiDONE [RisperDAL] 2 mg PO HS risperiDONE [RisperDAL] 1 mg PO DAILY #30 tab Discharge Medication List Apixaban [Eliquis] 5 mg PO BID #60 tab 07/21/23 [Rx] Atorvastatin [Lipitor] 80 mg PO HS #30 tab 07/21/23 [Rx] Nitroglycerin Sl Tabs [Nitrostat] 0.4 mg SL Q5M PRN 01/07/24 [History] Pantoprazole [Protonix] 40 mg PO DAILY 01/07/24 [History] Tamsulosin HCl [Flomax] 0.4 mg PO HS 01/07/24 [History] Psyllium Husk 100% [Metamucil Packet] 6 gm PO BID #60 packet 03/09/24 [Rx] Gabapentin [Neurontin] 400 mg PO TID 06/07/24 [History] Metoprolol Tartrate [Lopressor] 25 mg PO BID 06/07/24 [History] Acetaminophen Tab [Tylenol] 500 mg PO Q6HR PRN tab 06/11/24 [Rx] Aspirin 81 mg PO DAILY tab 06/11/24 [Rx] HYDROcodone/APAP 10-325MG [Buckeye 10-325] 1 tab PO QID PRN #12 tab 06/11/24 [Rx] Ipratropium-Albuterol Nebulize [Duoneb 0.5 mg-3 mg/3 ml Soln] 3 ml INHALATION BID each 06/11/24 [Rx] LORazepam [Ativan] 0.5 mg PO Q8HR PRN #9 tab 06/11/24 [Rx] Nicotine 21Mg/24Hr Patch [Habitrol] 1 patch TRANSDERM DAILY patch 06/11/24 [Rx] lisinopriL [Zestril] 20 mg PO HS #30 tab 06/11/24 [Rx] Follow up Appointment(s)/Referral(s): alissa lemus [Other] - 2 Weeks Remington Mustafa MD [Primary Care Provider] - 1-2 days
[2024-06-11 14:25] VITALS: BP 157/79; PULSE 82; TEMP 98.8
--- NOTE | 2024-06-13 03:06 | P.PN ---
Subjective Progress Note Date: 06/10/24 Patient was seen for a follow-up. Patient is laying in the bed, much more alert and awake. Patient denies any history of depression. His tremors have much improved. Patient states she feels "all right". No new concerns. Objective - Vital Signs Vital signs: Vital Signs Temp 98.2 F 06/10/24 13:15 Pulse 80 06/10/24 15:52 Resp 17 06/10/24 13:15 BP 152/85 06/10/24 13:15 Pulse Ox 98 06/10/24 13:15 FiO2 Intake & Output 06/09/24 06/10/24 06/10/24 18:59 06:59 18:59 Intake Total 120 600 Balance 120 600 Intake: Intake, IV Titration 600 Amount Dextrose 5%-0.45% NaCl 1, 600 000 ml @ 50 mls/hr IV . Q20H [facility] Rx#:[id number] Oral 120 Other: Voiding Method External Catheter Urinal Urinal Diaper Diaper Incontinent Incontinent # Voids 2 - Exam Mental status, speech and language functions are normal. Patient knows it is June 2024, and that he is in [facility] in [place]. Cranial nerves are normal. Visual romano are full. Face is symmetric and tongue protrudes the midline. On muscle strength testing (right/left) upper extremities 5/5, hip flexion 4+/5 ankle dorsiflexion 5/5, toe extension 4/4. Tone is mildly increased. Mild tremors at rest on the left. Sensations are equal. No ataxia, patient is tremulous. - Labs CBC & Chem 7: 06/10/24 05:10 06/10/24 05:10 Labs: Abnormal Lab Results - Last 24 Hours (Table) 06/07/24 06/10/24 06/10/24 Range/Units 23:39 05:10 05:10 WBC 11.3 H (3.8-10.6) k/uL RBC 3.74 L (4.30-5.90) m/uL Hgb 11.1 L (13.0-17.5) gm/dL Hct 33.6 L (39.0-53.0) % Neutrophils # 8.0 H (1.3-7.7) k/uL Sodium 135 L (137-145) mmol/L BUN 25 H (9-20) mg/dL Glucose 110 H (74-99) mg/dL POC Glucose (mg/dL) 123 H (70-110) mg/dL Albumin 3.3 L (3.5-5.0) g/dL Assessment and Plan Assessment: * Altered mental status, unclear cause. Rule out substance abuse, or wit hdrawal. 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 Patient on Risperdal, which could contribute to drug-induced parkinsonism. * Atrial fibrillation, on Eliquis * Hypertension * Hyperlipidemia * Peripheral neuropathy. * Wound in the bottom of right foot. * Charcot joints in the feet * History of amputated fourth and fifth toe of the right foot. * Peripheral arterial disease * History of alcoholism. 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 Psychiatry has seen the patient, diagnosed with neurocognitive deficits secondary to systemic causes, most likely due to medications. They recommended to hold Risperdal, avoiding antipsychotics till patient is less tremulous and able to communicate. 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 * Consider starting Cogentin to help with drug-induced parkinsonism. Patient's parkinsonism has further improved over last 24 hours. * EEG was abnormal due to background slowing, suggestive of mild encephalopathy. No focal, lateralized or epileptiform activity was seen. * Patient on aspirin 81 mg. * Resume Eliquis for atrial fibrillation. * CTA of head and neck revealed no significant stenosis. No report of any occlusion or aneurysm. * B12 373, folate 8.5, RPR nonreactive, hemoglobin A1c 5.8. MMA pending. * Patient off antibiotics. * DVT prophylaxis: Patient on Lovenox 40 mg subcu daily. Addendum 06/13/2024 1:05 PM: MMA level 0.62 (Normal <0.40), suggests B12 deficiency. Patient has already been discharged. Spoke to the patient's nurse Eneida at [facility] and infromed her about low B12 and borderline Folic acid and recommended her to inform the physician to start the B12 and Folate replacement.
--- NOTE | 2024-06-26 08:48 | CDI ---
Documentation Clarification Form Date: 06/26/2024 08:37:14 AM From: Hellen Qureshi Phone: Admit Date: 06/08/2024 10:15:00 AM Patient Name: Valentin Dale Visit Number: [id number] Discharge Date: 06/11/2024 03:06:00 PM ATTENTION: The Clinical Documentation Specialists (CDI) and [facility] Coding Staff appreciate your assistance in clarifying documentation. Please respond to the clarification below the line at the bottom and electronically sign. The CDI & [facility] Coding staff will review the response and follow-up if needed. Please note: Queries are made part of the Legal Health Record. If you have any questions, please contact the author of this message via ITS. Doctor/Provider: Damien Bruce Diabetes is documented per 06/10 Consult Note which may lack sufficient clinical evidence/support in the medical record. Additional clarification is requested. History/Risk Factors: 69yo M, neuroleptic malignant syndrome,PAD, foot wounds,GERD,HTN, peripheral neuropathyfromalcoholism, alcoholic dementia, metabolic encephalopathy/delirium, BPD, Charcotfoot w wounds sp 4th &5th toe amputations, COPD, smoker Clinical Indicators: Glucose: 06/07 108-123 06/08 119 06/10 110-123 Hemoglobin A1C 5.8 Treatment: monitored; Pt admitted to [facility] Please clarify the type of diabetes, if known: [ ] Diabetes Type 2 present [ + ] Diabetes Type 2 not present [ ] Other, please specify [ ] Unable to Determine (Template Last Revised: November 2020) MTDD
--- NOTE | 2024-06-26 08:54 | CDI ---
Documentation Clarification Form Date: 06/26/2024 08:48:32 AM From: Hellen Qureshi Admit Date: 06/08/2024 10:15:00 AM Patient Name: Valentin Dale Visit Number: [id number] Discharge Date: 06/11/2024 03:06:00 PM ATTENTION: The Clinical Documentation Specialists (CDI) and [facility] Coding Staff appreciate your assistance in clarifying documentation. Please respond to the clarification below the line at the bottom and electronically sign. The CDI & [facility] Coding staff will review the response and follow-up if needed. Please note: Queries are made part of the Legal Health Record. If you have any questions, please contact the author of this message via ITS. Doctor/Provider: Samuel There is documentation of a wound bilateral foot, pressure ulcer wounds per H&P. Additional specificity regarding the etiology and severity of the wound is requested. Patient history/risk factors: 69yo M, neuroleptic malignant syndrome, PAD, foot wounds, GERD, HTN, peripheral neuropathy from alcoholism, alcoholic dementia, metabolic encephalopathy/delirium, BPD, Charcot foot w wounds sp 4th &5th toe amputations, COPD, past nonhealingwoundsbilateral feet-past wound care center, 2006 osteomyelitis L foot, smoker Clinical Indicators: Bilateral foot, pressure ulcer wounds especially in the plantar aspect deep in a patient with known peripheral artery disease and peripheral neuropathy, underlying Charcot foot: Changes felt to be chronic Treatment: Follows at thewoundcare center with Dr. Akbar. Woundcare team consulted Please clarify the etiology and severity of the wound: Etiology: [ ] Non-pressure chronic ulcer due to diabetes [ x ] Non-pressure chronic ulcer due to arterial insufficiency [ ] Other, Please specify [ ] Unable to determine Right Foot Severity: [ ] Limited to breakdown of skin [ x ] With fat layer exposed [ ] Other, Please specify [ ] Unable to determine Left Foot Severity: [ ] Limited to breakdown of skin [ x] With fat layer exposed [ ] Other, Please specify [ ] Unable to determine MTDD
== END 2024-06-11 15:06 | DRG 71 ==
LOC: EC 13:12 → 5NMEDONC 19:26 → OBSVTOIN 06-08 10:15
PROVIDERS: ADMIT Hospitalist; ATTEND Hospitalist
DX: G93.41 Metabolic encephalopathy (principal); F05 Delirium due to known physiological condition; F10.27 Alcohol dependence with alcohol-induced persisting dementia; L97.422 Non-pressure chronic ulcer of left heel and midfoot with fat layer exposed; L97.412 Non-pressure chronic ulcer of right heel and midfoot with fat layer exposed; G62.1 Alcoholic polyneuropathy; I70.244 Atherosclerosis of native arteries of left leg with ulceration of heel and midfoot; I70.234 Atherosclerosis of native arteries of right leg with ulceration of heel and midfoot; J44.9 Chronic obstructive pulmonary disease, unspecified; F10.21 Alcohol dependence, in remission; F31.9 Bipolar disorder, unspecified; N18.30 Chronic kidney disease, stage 3 unspecified; F11.11 Opioid abuse, in remission; L97.519 Non-pressure chronic ulcer of other part of right foot with unspecified severity; I48.0 Paroxysmal atrial fibrillation; Z89.421 Acquired absence of other right toe(s); R62.7 Adult failure to thrive; Z74.2 Need for assistance at home and no other household member able to render care; G21.0 Malignant neuroleptic syndrome; I12.9 Hypertensive chronic kidney disease with stage 1 through stage 4 chronic kidney disease, or unspecified chronic kidney disease; E86.0 Dehydration; Z79.01 Long term (current) use of anticoagulants; E78.5 Hyperlipidemia, unspecified; F17.210 Nicotine dependence, cigarettes, uncomplicated; G89.29 Other chronic pain; K21.9 Gastro-esophageal reflux disease without esophagitis; T42.4X5A Adverse effect of benzodiazepines, initial encounter; I49.8 Other specified cardiac arrhythmias; E53.8 Deficiency of other specified B group vitamins; M14.672 Charcot's joint, left ankle and foot; M14.671 Charcot's joint, right ankle and foot; R41.89 Other symptoms and signs involving cognitive functions and awareness; Z79.82 Long term (current) use of aspirin; Z79.899 Other long term (current) drug therapy; Z86.14 Personal history of Methicillin resistant Staphylococcus aureus infection; Z87.11 Personal history of peptic ulcer disease
CPT/HCPCS: 36415; 70450; 70496; 70498; 80053; 80306; 80320; 81001; 82140; 82330; 82550; 82607; 82746; 83036; 83735; 83921; 84100; 84484; 85025; 85610; 85730; 86780; 93005; 94640; 94760; 95816; 99285